=== PATIENT | female | born 1935 | race Caucasian/White ===

== ENCOUNTER 2016-09-17 17:40 | Inpatient (IN) | payer MEDICARE, OTHER ==
[~2016-09-17] VITALS: Ht 152.4 cm; Wt 57.0 kg
[2016-09-17] VITALS (21 sets, daily range): BP systolic 82–110; BP diastolic 28–56; PULSE 70–90; RESP 15–35
[2016-09-17] MEDS ORDERED: DOPamine-D5W 1.6 MG/ML 250 ML IV SCH (21:00)
[2016-09-17] MEDS ORDERED: LEVOFLOXACIN 500MG/D5W (PMX) 100 ML IVPB ONE (21:00)
[2016-09-17 21:32] LABS: AADO2 Arterial 252.6 mmHg (7.0-24.0); Allen Test ACCEPTAB; Arterial Base Excess -0.6 mmol/L (-3.0-3); Arterial COHb 0.3 % (0.0-3.0); Arterial Fraction of Oxyhgb 80.3 % (93.0-99.0); Arterial HCO3 25.5 mmol/L (22.0-26.0); Arterial MetHb 0.5 % (0.0-1.5); Arterial Total Hemglobin 9.2 g/dl (12.0-18.0); MODE VENT - AC
[2016-09-17] MEDS: DEXTROSE 5%-0.9% NACL 1,000 ML IV SCH (22:00)
[2016-09-17] MEDS ORDERED: NORepinephrine 8MG/250 ML (PMX 250 ML ONE (22:44)
[2016-09-17] MEDS ORDERED: NORepinephrine 8MG/250 ML (PMX 250 ML IV SCH (23:00)
[2016-09-17] MEDS: BUDESONIDE (NEB) 0.5MG/2ML AMP HHN SCH (23:49)
[2016-09-17] MEDS: COLISTIMETHATE (25 MG/ML INHAL SYG) NEB SCH (23:50)
[2016-09-18] VITALS (103 sets, daily range): BP systolic 78–131; BP diastolic 31–90; PULSE 61–103; RESP 13–27
[2016-09-18] MEDS ORDERED: IPRATROPIUM (NEB) 0.5 MG/2.5 ML AMP HHN SCH (01:00)
[2016-09-18] MEDS ORDERED: LEVALBUTEROL (NEB) 0.63 MG/3 ML AMP HHN SCH ×2 (01:00→08:00)
[2016-09-18 01:18] LABS: AADO2 Arterial 457.6 mmHg (7.0-24.0); Allen Test ACCEPTAB; Arterial Base Excess 1.5 mmol/L (-3.0-3); Arterial COHb 0.3 % (0.0-3.0); Arterial Fraction of Oxyhgb 98.4 % (93.0-99.0); Arterial MetHb 0.5 % (0.0-1.5); Arterial Total Hemglobin 8.7 g/dl (12.0-18.0); MODE VENT - AC
[2016-09-18] MEDS: HEPARIN 5,000 UNIT/0.5 ML SYG SC SCH ×3 (01:20→20:43)
[2016-09-18] MEDS: IPRATROPIUM (HFA) 12.9 GM INHALER INH SCH ×6 (02:28→20:29)
[2016-09-18] MEDS: LEVALBUTEROL (HFA) 15 GM INHALER INH SCH ×6 (02:29→20:29)
[2016-09-18 05:57] LABS: BASOPHILS % 0.1 % (0.0-2.0); HEMATOCRIT 24.9 % (37.0-47.0); HEMOGLOBIN 8.3 g/dl (12.0-16.0); LYMPHOCYTES # 1.1 10^3/ul (0.8-2.9); LYMPHOCYTES % 5.7 % (15.0-51.0); MEAN CORPUSCULAR HGB CONC 33.2 g/dl (32.0-37.0); MEAN CORPUSCULAR VOLUME 96.6 fl (82.0-101.0); MEAN PLATELET VOLUME 8.1 fl (7.4-10.4); MONOCYTE # 1.2 10^3/ul (0.3-0.9); MONOCYTES % 6.2 % (0.0-11.0); NEUTROPHIL # 17.2 10^3/ul (1.6-7.5); PLATELET COUNT 274 10^3/UL (140-440); RED BLOOD COUNT 2.58 10^6/ul (4.20-5.40); RED CELL DISTRIBUTION WIDTH 17.6 % (11.5-14.5); UNCORRECTED WBC 19.5 10^3/ul (4.8-10.8); WHITE BLOOD COUNT 19.5 10^3/ul (4.8-10.8)
[2016-09-18 06:10] LABS: POTASSIUM 4.1 mmol/L (3.5-5.1)
[2016-09-18 06:13] LABS: CREATININE 2.96 mg/dl (0.44-1.00)
[2016-09-18 06:14] LABS: CALCIUM 9.8 mg/dl (8.4-10.2)
[2016-09-18 06:17] LABS: CONDITION 1; LH ANALYZER COMMENTS 1
[2016-09-18 07:45] LABS: AADO2 Arterial 321.5 mmHg (7.0-24.0); Allen Test ACCEPTAB; Arterial Base Excess -0.5 mmol/L (-3.0-3); Arterial COHb 0.3 % (0.0-3.0); Arterial Fraction of Oxyhgb 97.9 % (93.0-99.0); Arterial HCO3 24.9 mmol/L (22.0-26.0); Arterial MetHb 0.6 % (0.0-1.5); Arterial Total Hemglobin 10.2 g/dl (12.0-18.0); MODE VENT - AC
[2016-09-18] MEDS ORDERED: BISACODYL 10 MG SUPP PR PRN (08:00)
[2016-09-18] MEDS ORDERED: IPRATROPIUM (HFA) 12.9 GM INHALER INH SCH (08:00)
[2016-09-18] MEDS ORDERED: LIDOCAINE 1% (MDV) 20 ML INJ SC ONE (08:00)
[2016-09-18] MEDS ORDERED: ONDANSETRON 4 MG INJ IV PRN (08:00)
[2016-09-18] MEDS: COLISTIMETHATE (25 MG/ML INHAL SYG) NEB SCH (08:06)
[2016-09-18] MEDS: BUDESONIDE (NEB) 0.5MG/2ML AMP HHN SCH ×2 (08:08→20:28)
[2016-09-18] MEDS: INSULIN ASPART [NOVOLOG] 3 ML PEN SC SCH ×4 (09:00→20:45)
--- NOTE | 2016-09-18 09:13 | RADRPT ---
PROCEDURE: Chest 1 views. CLINICAL INDICATION: Shortness of breath, follow up TECHNIQUE: AP views of the chest were obtained. COMPARISON: September 17, 2016 FINDINGS: The heart is large. Calcified atherosclerosis is noted in the aorta. Tracheostomy tube is stable. Nasogastric tube has its proximal side hole at the level of the gastroesophageal junction and its ti p in the expected location of the proximal stomach. Right-sided dialysis catheter is stable. Retro cardiac opacity is unchanged. Patchy right lower lung infiltrates combined small pleural effusion a re stable. Central pulmonary vascular congestion and interstitial prominence in both lungs is stabl e. Osseous structures are intact. IMPRESSION: Cardiomegaly with calcified atherosclerosis in the aorta. Nasogastric tube with its proximal side hole at the level of the gastroesophageal junction. Advance ment by approximately 10 cm is advised. Stable central pulmonary vascular congestion and mild interstitial prominence in both lungs. Stable retrocardiac opacity that may reflect left lower lobe atelectasis or infiltrate combined with [id number] pleural effusion. Stable right lower lung infiltrates combined small pleural effusion. RPTAT: AA .Andrew Briceño MD, Date Time Electronically viewed and signed by .Andrew Briceño MD, on 09/18/2016 09:13 .P/
[2016-09-18 09:53] LABS: ALBUMIN 3.4 g/dl (3.3-4.9)
[2016-09-18 09:56] LABS: BILIRUBIN,INDIRECT 0.1 mg/dl (0-1.1); BILIRUBIN,TOTAL 0.1 mg/dl (0.2-1.3); TOTAL PROTEIN 7.2 g/dl (6.1-8.1)
[2016-09-18] MEDS: COLLAGENASE 30 GM TUBE TOP SCH (10:20)
[2016-09-18] MEDS: PANTOPRAZOLE 40 MG INJ IV SCH (10:20)
[2016-09-18] MEDS: MUPIROCIN 2% 22 GM OINT TOP SCH ×2 (10:20→20:39)
--- NOTE | 2016-09-18 10:46 | HP ---
DATE OF ADMISSION: 09/17/2016 CHIEF COMPLAINT: Septic shock. HISTORY OF PRESENT ILLNESS: This is an 81-year-old female with a past medical history of chronic re spiratory status post tracheostomy, history of COPD, CHF, pulmonary hypertension who initially prese nted to an outside hospital at [place] for septic shock. The patient prior to admission to an [facility] [place] was residing in a subacute facility at [place] where she was found to be unrespo nsive. As a result she was transferred to the emergency room. At that time, the patient was found to be hypercapnic respiratory failure, hypotensive and septic shock secondary to urinary tract infec tion and pneumonia. The patient was transferred to intensive care unit where her course was complic ated with acute kidney injury necessitating dialysis. The patient also noted to have episodes of an emia requiring blood transfusion. The patient's infectious workup at that time included multidrug r esistant Pseudomonas in sputum cultures. The patient was treated with broad spectrum antibiotics. She was eventually stabilized, weaned off pressors and transferred to [facility] for continued care. The patient was also on sildenafil for her pulmonary hypertension. While at [place] the patient was noted to be stable; however, patient yesterday after following a thoracentesis ronn me hypotensive, unresponsive to fluid and as a result was transferred from [facility] to [facility] intensive care unit. While at the intensive care unit of [facility] the patient has been critical on pressor sup port. There have been no reports of hemoptysis, hematemesis, hematochezia. No chest pain noted. T he patient had no other acute events noted. PAST MEDICAL HISTORY: As stated above, history of chronic respiratory failure, history of COPD, his tory of atrial fibrillation, hypertension, GERD, history of CVA, history of encephalopathy. PAST SURGICAL HISTORY: Status post trach, status Perm-A-Cath placement. SOCIAL HISTORY: Does not drink, smoke or do drugs. FAMILY HISTORY: Noncontributory. ALLERGIES: 1. PATIENT IS ALLERGIC TO ASPIRIN. 2. PENICILLIN. 3. SULFA. MEDICATIONS: Patient's medications have been reviewed and reconciled. REVIEW OF SYSTEMS: A 14-point review of systems was conducted. Pertinent positives in HPI, otherwi se negative. PHYSICAL EXAMINATION: VITAL SIGNS: Blood pressure is currently 107/39, respirations 23, pulse 78, temperature 98.7. I'S AND O'S: The patient had 700 in, no urinary output. HEENT: Head is normocephalic. NECK: Shows trach. HEART: Irregularly irregular. LUNGS: Show diminished breath sounds at the base. Positive rhonchi. ABDOMEN: Distended, soft, nontender to palpation. EXTREMITIES: Negative for clubbing, cyanosis or edema. DERMATOLOGIC: No rashes. MUSCULOSKELETAL: No joint effusions. NEUROLOGIC: Limited exam due to lack of patient cooperation. IMAGING STUDIES: Showed a CT scan of abdomen and pelvis on 09/14/2016 showed atelectasis, large rig ht pleural effusion, cardiomegaly, compression fractures, degenerative joint disease, dilated inferi or vena cava, moderate ascites. Chest x-ray on 09/17/2016 shows no pneumonia, large left pleural ef fusion, cardiomegaly. LABORATORY DATA: Shows sodium 139, potassium 4.0, chloride 97, BUN 98, creatinine 2.96. White coun t 19.5, hemoglobin 8.3, hematocrit 34.9, platelet count 274. ABG shows pH 7.524, pCO2 of 29. ASSESSMENT AND PLAN: This is an 81-year-old female who presents with: 1. Septic shock, underlying source unclear, possibly multifactorial secondary to pneumonic, possibl e decubitus wound, questionable urinary. The patient is currently on pressor support, on IV fluids and broad spectrum antibiotics. Plan at this point is to follow up blood cultures. Plan at this po int is to check blood cultures. We will check sputum culture. We will also draw blood culture from dialysis catheter. We will continue the patient on broad spectrum antibiotics, continue pressor [place] pport. Continue IV hydration at this time. We will follow up with Infectious Disease for further r ecommendations. 2. Ventilator dependent respiratory failure. Vent settings have been reviewed. ABG has been revie wed. Continue current vent settings. Pulmonary consult was placed with Dr. Harrison. 3. End-stage renal disease. The patient's last hemodialysis was on 09/15/2016. We will attempt di alysis today for solute clearance if the patient is hemodynamically stable, will minimize ultrafiltr ation as the patient is in shock. 4. Severe pulmonary hypertension. Patient is on sildenafil will continue. We will follow up with p ulmonologist for further recommendations. 5. Anemia. We will continue to monitor H and H levels. We will give Epogen as needed. 6. Atrial fibrillation. The patient's rate is currently controlled. We will continue to monitor. We will hold AV danny blockade at this time as the patient is in shock. 7. Seizure disorder. Continue Keppra. 8. Acute decompensated heart failure/right-sided heart failure. Continue medical management. Cont inue ultrafiltration dialysis if the patient is hemodynamically stable. 9. Stage IV decubitus wound. Continue wound care, low air loss mattress. Continue offloading octaviano ent. 10. Diabetes. Continue Accu-Cheks and sliding scale. 11. Mineral bone disorder. Monitor calcium and phosphorus levels. We will continue phosphate bind ers. 12. Dysphagia status post nasogastric tube. We will continue tube feedings. 13. Chronic encephalopathy, etiology toxic metabolic. Continue to monitor. 14. History of cerebrovascular accident. Continue medical management. 15. Abdominal distention and abdominal ascites. Etiology is possibly cardiac due to right-sided he art failure. We will continue to monitor. We will get abdominal ultrasound for evaluation, conside r paracentesis. 16. GI and deep venous thrombosis prophylaxis. Continue proton pump inhibitor and heparin. 17. History of coronary artery disease. Continue medical management. 18. Respiratory alkalosis. We will continue to monitor. Please note I spent over 30 minutes of time discussing code status, advance directives with the octaviano ent's at bedside. Dictated By: RUDDY BUSTILLOS/ARNOLDO Conf#: [id number] DID#: [id number]
--- NOTE | 2016-09-18 11:24 | CONS ---
DATE OF ADMISSION: 09/17/2016 DATE OF CONSULTATION: 09/18/2016 TYPE OF CONSULTATION: Pulmonary. REASON FOR CONSULT: Ventilator management, septic shock. Thank you, Dr. Reddy, for this consultation. HISTORY OF PRESENT ILLNESS: This is an unfortunate 81-year-old lady with multiple medical problems including vent-dependent respiratory failure since 10/2015, COPD, septic shock, pulmonary hypertensi on, transferred from [facility] for hypercapnic respiratory failure, here found to have si gnificant large pleural effusion requiring transfer to [facility] intensive care u nit from [place] respiratory unit for thoracentesis. The patient also remains on vasopressors this m orning. Opens eyes, not following commands. She also has a history of leaking G-tube which has bee n removed and subsequently has a nasogastric tube in place. PAST MEDICAL HISTORY: COPD, vent-dependent respiratory failure, atrial fibrillation, hypertension, hyperlipidemia, history of CVA. SURGICAL HISTORY: Includes Perm-A-Cath placement, tracheostomy, and prior PEG tube. MEDICATIONS: Per chart. ALLERGIES: 1. PENICILLIN. 2. ASPIRIN. 3. SULFA. SOCIAL HISTORY: Nonsmoker, no alcohol, no history of drug use. FAMILY HISTORY: Noncontributory. SYSTEMS REVIEW: A 12-point review of systems was negative other than that mentioned above. PHYSICAL EXAMINATION: GENERAL: Chronically ill appearing lady, opens eyes, not following commands. VITAL SIGNS: Currently afebrile, pulse is 80, blood pressure 107/39, O2 saturation 96%, FIO2 of 70% . NECK: Supple. Trach site clean and intact. CARDIAC: S1, S2, no added sounds or murmurs. CHEST: Diminished air entry bilaterally. ABDOMEN: Soft, nontender. No guarding or rebound. EXTREMITIES: No cyanosis, clubbing, edema +2. NEUROLOGIC: Generalized weakness. LABORATORIES: White count 19.5, hemoglobin 8.3, platelets of 274. BUN 28, creatinine 2.96. ABG: pH 7.37, pCO2 43, PaO2 of 166. DIAGNOSTIC DATA: Chest x-ray shows massive cardiomegaly and possible left pleural effusion. IMPRESSION AND PLAN: 1. Vent dependent respiratory failure. 2. Right pleural effusion, possibly underlying healthcare-associated pneumonia. 3. Significant cardiomyopathy, possible underlying pulmonary hypertension. 4. History of cerebrovascular accident. 5. Encephalopathy. 6. Dysfunctional G-tube with NG tube in place. 7. Septic shock is noted, likely polymicrobial. The patient will require: 1. Continued broad-spectrum antibiotic coverage. 2. Vent support. 3. A nasogastric tube feeding. 4. DVT and GI prophylaxis. Overall prognosis is guarded. Goals of care should be established. Code status should be addressed . Dictated By: JULIA SNYDER/ARNOLDO Conf#: [id number] DID#: [id number]
[2016-09-18] MEDS: LEVETIRACETAM IV 500 MG in DEXTROSE 5% 100 ML IVPB SCH ×2 (12:07→20:45)
[2016-09-18] MEDS: DEXTROSE 5%-0.9% NACL 1,000 ML IV SCH ×2 (12:08→23:40)
[2016-09-18] MEDS ORDERED: SOD CHLORIDE 0.9% 100 ML ONE (12:42)
--- NOTE | 2016-09-18 12:47 | RADRPT ---
PROCEDURE: Ultrasound proximal left upper extremity for PICC placement CLINICAL INDICATION: PICC placement TECHNIQUE: Sonographic evaluation of the proximal left upper extremity vessels was performed utili zing a high-frequency linear transducer. COMPARISON: None available FINDINGS: Limited evaluation of the proximal left upper extremity for vascular access for PICC placement. Emre ssly, no abnormality is seen. IMPRESSION: Unremarkable limited proximal left upper extremity ultrasound for PICC placement. RPTAT: JJ .Ranjith Wray MD, MD Date Time Electronically viewed and signed by .Ranjith Wray MD, MD on 09/18/2016 12:46 .A/
--- NOTE | 2016-09-18 12:49 | RADRPT ---
PROCEDURE: XR Chest. CLINICAL INDICATION: PICC line placement TECHNIQUE: Chest AP portable. COMPARISON: 09/18/2016 at 0648 hours FINDINGS: Tracheostomy tube. Right internal jugular is tunneled dialysis catheter. Nasogastric tube in the s tomach. New left arm PICC line with tip in superior vena cava. The mediastinal structures are unremarkable. There is calcification of the thoracic aorta (consiste nt with atherosclerosis). There is moderate cardiac enlargement. There is no change in the congest adryan heart failure. There is no change in the RLL and LLL consolidations. There is no change in the small to moderate-sized bilateral pleural effusions. There are senescent changes of the axial skel eton. IMPRESSION: Moderate cardiac enlargement. No change in congestive heart failure. No change in RLL and LLL consolidations (edema/pneumonia). No change in small to moderate-sized bilateral pleural effusions. RPTAT: HGDB .Isaak Loera MD, MD Date Time Electronically viewed and signed by .Isaak Loera MD, on 09/18/2016 12:48 .B/
[2016-09-18] MEDS ORDERED: VANCOMYCIN IV PER PHARMACY XX SCH (13:00)
[2016-09-18] MEDS ORDERED: AMIKACIN IV PER PHARMACY XX SCH (13:00)
[2016-09-18] MEDS ORDERED: VANCOMYCIN 1 GM in NS 250 ML IVPB SCH (14:30)
[2016-09-18] MEDS ORDERED: AMIKACIN 350 MG in SOD CHLORIDE 0.9% 100 ML IVPB SCH (15:00)
--- NOTE | 2016-09-18 15:14 | CONS ---
DATE OF ADMISSION: 09/17/2016 DATE OF CONSULTATION: 09/18/2016 TYPE OF REPORT: Infectious disease consultation. REASON FOR CONSULTATION: Antibiotic management. HISTORY OF PRESENT ILLNESS: Ruby Gomez is an 81-year-old female who comes in with septic shock. Her past problems include: 1. Chronic respiratory failure, status post tracheostomy. 2. Chronic obstructive pulmonary disease. 3. Congestive failure. 4. Pulmonary hypertension. HISTORY OF THE PRESENT ILLNESS: She initially presented to an outside hospital at [place] for s eptic shock. She has been residing in a subacute facility. She was found to be in respiratory fail ure, hypotensive and in septic shock secondary to urinary tract infection and pneumonia. The patien t was transferred to intensive care unit where her course was complicated with acute kidney injury, necessitating dialysis. She was noted to have episodes of anemia requiring blood transfusion. She had multidrug resistant Pseudomonas in her sputum and was treated with broad spectrum antibiotics. She was stabilized, weaned off pressors, transferred to [facility] for continued care . While at [facility], she was stable, but yesterday following the thoracentesis, she which became hype rtensive, unresponsive and as a result was transferred to the intensive care unit of [facility]. She has a Perm-A-Cath and tracheostomy. ALLERGIES: 1. ASPIRIN. 2. PENICILLIN. 3. SULFA. PAST SURGICAL HISTORY: As noted. FAMILY HISTORY: Noncontributory. SOCIAL HISTORY: She does not smoke, drink or abuse drugs. MEDICATIONS: Per chart. REVIEW OF SYSTEMS: Noncontributory. PHYSICAL EXAMINATION: GENERAL: The patient is an elderly appearing female who is obtunded on a respirator. VITAL SIGNS: Stable. She is afebrile. SKIN: Without generalized rash. HEENT: Within normal limits. NECK: Supple. LYMPH NODES: None palpable. CHEST: Decreased breath sounds at the bases. HEART: Irregularly irregular rhythm. ABDOMEN: Soft, nontender, distended without organosplenomegaly or masses. EXTREMITIES: Without cyanosis, clubbing, or edema. RECTAL AND GENITAL: Deferred. NEUROLOGIC: Limited exam due to lack of patient cooperation. She seems to move all extremities. HOSPITAL COURSE: CT scan of the abdomen and pelvis on 09/14/2016 showed atelectasis, large right pl eural effusion, cardiomegaly, compression fractures, DJD, dilated inferior vena cava, moderate ascit es. On the she had no evidence of pneumonia. White count on admission was 19.5, H and H of 8.3 and 34.9, platelet count of 274,000. The patient was noted to be in septic shock. She was seen al so by Dr. Harrison for management of her ventilator dependence. She has a stage IV decubitus ulcer. Currently, her white count is 19.5 today, H and H 8.3 and 24.9, platelet count 274,000. She is cur rently on amikacin. She received some Levaquin and also on vancomycin and ceftazidime. She is also on caspofungin. She is covered for gram positives, gram negatives and fungi. She is also on pres sors. We will continue her on this regimen. I will check to make sure she had blood cultures done. I will dictate my findings to Dr. Reddy and to Dr. Harrison. Dictated By: TUAN NELSON MD, JD/ARNOLDO Conf#: [id number] DID#: [id number]
[2016-09-18] MEDS: CASPOFUNGIN 35 MG in SOD CHLORIDE 0.9% 250 ML IV SCH (16:27)
[2016-09-18] MEDS: CEFTAZIDIME 1GM/50 ML (PMX) 50 ML IVPB SCH (16:28)
[2016-09-18] MEDS: MIRTAZAPINE 15 MG TAB GTB SCH (20:38)
--- NOTE | 2016-09-18 20:40 | CONS ---
DATE OF ADMISSION: 09/17/2016 DATE OF CONSULTATION: 09/18/2016 REFERRING PHYSICIAN: Dr. Reddy REASON FOR CONSULTATION: Shock, hypotension. CHIEF COMPLAINT: Shock, hypotension. HISTORY OF PRESENT ILLNESS: Thank you for this referral. History was obtained from extensive revie w of the chart, review of the old chart, discussion with physician and staff. This is an unfortunat e 81-year-old female with a complicated medical history who has been in [place] for respiratory care. The patient had been transferred to ICU because of hypotension. The patient had thoracentesis don e, and postop she became more hypotensive, transferred to ICU, currently on Levophed drip. She has had dialysis done and was able to successfully take fluid off. The patient denies any chest pain or pressure to me, does complain of what appeared to be abdominal discomfort though. Rhythm strip was reviewed ____ the patient has been in atrial fibrillation and junctional rhythm. Heart rate on the fast side but is stable overall. The patient's chest x-ray also has shown pleural effusion and flu id overload, congestive heart failure. For the above, I was kindly asked to evaluate and assist in management. PAST MEDICAL HISTORY: History of respiratory failure, COPD, atrial fibrillation, hypertension, pedro roesophageal reflux disease, history of CVA, history of encephalopathy, history of anemia. Based on the previous echocardiogram that was just recently done, personally reviewed, the patient also most likely has an ASD or PFO and pulmonary hypertension as well. SURGICAL HISTORY: Status post tracheostomy, status post Perm-A-Cath placement. SOCIAL HISTORY: The patient does not smoke or drink. FAMILY HISTORY: No reported early coronary artery disease. ALLERGIES: REPORTEDLY TO: 1. ASPIRIN. 2. PENICILLIN. 3. SULFA. Details are not clear. MEDICATIONS: As per medication reconciliation, was personally extensively reviewed. REVIEW OF SYSTEMS: All are negative except for above mentioned as best we could obtain. The patien t also had dysphagia, status post NG tube in place. PHYSICAL EXAMINATION: VITAL SIGNS: Temperature 97.3, heart rate of 101, blood pressure 113/40 on Levophed, respiratory ra te of 24, saturating 99%. HEAD: Normocephalic, atraumatic. EYES: Pupils are equal. NOSE: Status post NG tube in place. NECK: Status post tracheostomy, on the vent. CARDIOVASCULAR: Tachycardic. PULMONARY: Mild rhonchi, diffuse. GASTROINTESTINAL: Distended but no rebound or guarding but positive tenderness to palpation. EXTREMITIES: Trivial lower extremity edema. DERMATOLOGIC: Positive decubitus ulcers, stage IV, apparently sacral area. NEUROLOGIC: Awake, responds appropriately. PSYCHIATRIC: Appeared to be anxious. LABORATORY: Sodium 139, potassium 4.1, BUN of 98, creatinine 2.96, glucose of 109. Albumin is 3.4. WBC of 19.5, hemoglobin 8.3, platelets of 274. Abdominal and pelvic CT done on the shows NG tube in the stomach, large right pleural effusion, dilated inferior vena cava, old compression fractures. Echocardiogram done on 09/16 was also personally reviewed which showed normal LV size and ejection f raction of probably about 55%. Right and left atrium are severely dilated. There is moderate karly l insufficiency noted with mild aortic insufficiency. PA pressure is elevated at 72 mmHg with sever e tricuspid insufficiency. There is byap-kk-[id number] shunt consistent with PFO or ASD noted. EKG was personally reviewed, done on the , showed atrial fibrillation. There is right bundle bra nch block. Lateral infarct, age undetermined. ASSESSMENT AND PLAN: 1. Shock, most likely septic. 2. Atrial fibrillation. 3. Renal failure on dialysis. 4. Pneumonia. 5. Fluid overload/congestive heart failure. 6. Pulmonary hypertension at least partially related to probably atrial septal defect. 7. Diabetes. 8. Dysphagia, status post nasogastric tube feeding. 9. Encephalopathy, history of cerebrovascular accident with ASPIRIN ALLERGY. 10. Abdominal distention and ascites. 11. Abnormal electrocardiogram. 12. Respiratory alkalosis. RECOMMENDATIONS: Antibiotic will be continued and managed as per ID's recommendation. I have order ed OB stool guaiac to see if the patient is a candidate to tolerate anticoagulation and make sure th ere are no signs of bleeding. Nutritional support to be continued. Respiratory care and trach care will be continued as well. Will continue to monitor her closely in the ICU. ____ the Levophed shana l be continued and adjusted as needed. Will continue to follow along with you. Dictated By: AMANDA PINTO MD AV/ARNOLDO Conf#: [id number] DID#: [id number] CC: RUDDY REDDY DO;*EndCC*
[2016-09-18] MEDS: morphine 2 MG INJ IV PRN (22:23)
[2016-09-19] VITALS (41 sets, daily range): BP systolic 90–110; BP diastolic 31–50; PULSE 71–109; RESP 15–35
[2016-09-19] MEDS: DEXTROSE 5%-0.9% NACL 1,000 ML IV SCH (00:40)
[2016-09-19] MEDS: INSULIN ASPART [NOVOLOG] 3 ML PEN SC SCH ×6 (01:24→21:00)
[2016-09-19] MEDS: IPRATROPIUM (HFA) 12.9 GM INHALER INH SCH ×6 (01:46→21:41)
[2016-09-19] MEDS: LEVALBUTEROL (HFA) 15 GM INHALER INH SCH ×6 (01:46→21:40)
[2016-09-19 05:30] LABS: BASOPHILS % 0.2 % (0.0-2.0); HEMATOCRIT 23.3 % (37.0-47.0); HEMOGLOBIN 7.5 g/dl (12.0-16.0); LYMPHOCYTES # 0.8 10^3/ul (0.8-2.9); LYMPHOCYTES % 5.4 % (15.0-51.0); MEAN CORPUSCULAR HEMOGLOBIN 31.4 pg (29.0-33.0); MEAN CORPUSCULAR HGB CONC 32.1 g/dl (32.0-37.0); MEAN CORPUSCULAR VOLUME 97.9 fl (82.0-101.0); MEAN PLATELET VOLUME 7.9 fl (7.4-10.4); MONOCYTE # 1.2 10^3/ul (0.3-0.9); MONOCYTES % 8.1 % (0.0-11.0); NEUTROPHIL # 12.9 10^3/ul (1.6-7.5); NEUTROPHILS % 86.3 % (39.0-77.0); PLATELET COUNT 229 10^3/UL (140-440); RED BLOOD COUNT 2.38 10^6/ul (4.20-5.40); RED CELL DISTRIBUTION WIDTH 17.9 % (11.5-14.5); UNCORRECTED WBC 14.9 10^3/ul (4.8-10.8); WHITE BLOOD COUNT 14.9 10^3/ul (4.8-10.8)
[2016-09-19 05:36] LABS: POTASSIUM 3.2 mmol/L (3.5-5.1)
[2016-09-19 05:38] LABS: CREATININE 1.87 mg/dl (0.44-1.00)
[2016-09-19 05:39] LABS: CALCIUM 8.9 mg/dl (8.4-10.2); PHOSPHORUS 1.7 mg/dl (2.5-4.9)
[2016-09-19 05:40] LABS: MAGNESIUM 2.3 mg/dl (1.7-2.5)
[2016-09-19 06:21] LABS: CONDITION 1; LH ANALYZER COMMENTS 1
[2016-09-19] MEDS: PANTOPRAZOLE 40 MG INJ IV SCH (06:28)
[2016-09-19] MEDS ORDERED: VANCOMYCIN 1 GM in NS 250 ML IVPB ONE (06:45)
[2016-09-19] MEDS ORDERED: POTASSIUM CHLORIDE (SR) 20 MEQ TAB PO STA (07:51)
[2016-09-19 07:54] LABS: Allen Test ACCEPTAB; Arterial Base Excess 1.8 mmol/L (-3.0-3); Arterial COHb 0.2 % (0.0-3.0); Arterial Fraction of Oxyhgb 96.1 % (93.0-99.0); Arterial MetHb 0.8 % (0.0-1.5); Arterial Total Hemglobin 7.8 g/dl (12.0-18.0); MODE VENT - AC
--- NOTE | 2016-09-19 07:56 | RADRPT ---
PROCEDURE: XR Chest. CLINICAL INDICATION: Shortness of breath. TECHNIQUE: Single frontal view. COMPARISON: 09/18/2016. FINDINGS: The tracheostomy tube, nasogastric tube, left arm PICC line, and tunneled right internal jugular vei n dialysis catheter remain in satisfactory position. Pulmonary edema and bibasilar atelectasis is u nchanged. The heart is markedly enlarged. There are small bilateral pleural effusions. There is no pneumothorax. IMPRESSION: 1. No change from 09/18/2016. RPTAT: QQ .Joshua Cantu MD, MD Date Time Electronically viewed and signed by .Joshua Cantu MD, MD on 09/19/2016 07:56 .R/
[2016-09-19] MEDS ORDERED: EPOETIN 10000 UNITS/1 ML INJ (ESRD) SC SCH (08:00)
[2016-09-19] MEDS: BUDESONIDE (NEB) 0.5MG/2ML AMP HHN SCH ×2 (08:01→21:38)
[2016-09-19] MEDS ORDERED: POTASSIUM CHLORIDE 20 MEQ POWDER FOR ORAL SOLN GTB ONE (08:15)
[2016-09-19] MEDS ORDERED: SODIUM PHOSPHATE 15 MMOL in SOD CHLORIDE 0.9% 250 ML IVPB ONE (09:00)
[2016-09-19] MEDS ORDERED: EPOETIN 4000 UNITS/1 ML INJ (ESRD) SC ONE (09:00)
[2016-09-19] MEDS: SILDENAFIL 20 MG TAB PO SCH ×3 (09:00→21:00)
--- NOTE | 2016-09-19 09:31 | CONS ---
Date/Time of Note Date/Time of Note DATE: 09/19/16 TIME: 09:28 Assessment/Plan Assessment/Plan Chief Complaint/Hosp Course ID PROGRESS NOTE ABX => Vanco IV + Amikacin + Cancidas s/p Levaquin 24H INTERVAL SUMMARY * Weaning pressors -- septic shock / Vented * IMAGING: Chest x-ray shows pulmonary vascular congestion, retrocardiac opacity, right lower lung infiltrate. Marcus: 09/17/16-2199 Rcvd: 09/18/16-56 Source: [facility] A Sp Descrip: Microbiology RESPIRATORY CULTURE Preliminary Organism 1 GRAM NEGATIVE KEMI QUANTITY 2+ PHYSICAL EXAMINATION: GENERAL: VSS-> weaning pressors, NAD, noncommunicative on Vent HEENT: Unremarkable NECK: Supple, trachea midline. CHEST: Rise symmetrical,=> Vented course BS HEART: S1, S2. ABDOMEN: Soft, benign - Peg EXTREMITIES: Warm, no edema SKIN: STG IV DECUB -> See photos ID ASSESSMENT 81 yo H F w/PMHx Afib, CVA, VDRF-Trach since OCT 2015, Peg, COPD, ESRD admit with: 1. Sepsis w/shock => hypotension on pressors ->Likely GNR from GNR HCAP + DECUB + ?bladder sepsis - anuric * Leukocytosis on admit * Low grade temps on admit 99.7 * Encephalopathy 2/2 #1 2. GNR HCAP 3. Right pleural effusion, possibly underlying healthcare-associated pneumonia. 3. Acute decompensated heart failure, right-sided heart failure. Continue ultrafiltration dialysis. 4. Dysfunctional G-tube with NG tube in place. 5. ESRD-> HD w/PermCath 6. Hx of Gastritis 7. STG IV coccygeal decub present on admission 8. ?UTI -> HD dependent ( + )MRSA Nares ->Bactroban INVASIVES: PICC (09/18), Trach, Peg, NGT, PermCath ABX ALLERGY: PCN/SULFA CURRENT ABX: ABX => Vanco IV + Amikacin + Cancidas ID RECOMMENDATIONS Continue Current ABX -> Bactroban to nares Temporary FC overnight to obtain UA + C&S Wound culture --> Taper ABX per micro finding and clinical course. ->Plan of care discussed w/family member in room who expresses understanding/ gratitude . Problems: Consultation Date/Type/Reason Admit Date/Time Sep 17, 2016 at 18:49 Initial Consult Date Exam/Review of Systems Vital Signs Vitals Vital Signs Date Time Temp Pulse Resp B/P Pulse Ox O2 Delivery O2 Flow Rate FiO2 09/19/16 07:00 98.8 78 23 93/35 99 09/19/16 06:00 Mechanical Ventilator 09/19/16 05:12 55 Intake and Output 09/18/16 09/18/16 09/19/16 15:00 23:00 07:00 Intake Total 948.750 ml 2015.25 ml 1060 ml Output Total 3500 ml Balance 948.750 ml -1484.75 ml 1060 ml Results Result Diagram: 09/19/16 0435 09/19/16 0435 Results 24 hrs Laboratory Tests Test 09/18/16 10:21 09/18/16 13:48 09/18/16 16:30 09/18/16 20:36 Bedside Glucose 114 169 179 203 Test 09/19/16 01:20 09/19/16 04:34 09/19/16 04:35 09/19/16 07:00 Bedside Glucose 192 204 Anion Gap 16 Basophils # 0.0 Basophils % 0.2 Blood Morphology Comment Blood Urea Nitrogen 49 #H Calcium Level 8.9 Carbon Dioxide Level 30 Chloride Level 108 # Creatinine 1.87 #H Eosinophils # 0.0 Eosinophils % 0.0 Glucose Level 197 Hematocrit 23.3 L Hemoglobin 7.5 L Lymphocytes # 0.8 Lymphocytes % 5.4 L Magnesium Level 2.3 Mean Corpuscular Hemoglobin 31.4 Mean Corpuscular Hemoglobin Concent 32.1 Mean Corpuscular Volume 97.9 Mean Platelet Volume 7.9 Monocytes # 1.2 H Monocytes % 8.1 Neutrophils # 12.9 H Neutrophils % 86.3 H Nucleated Red Blood Cells # 0.0 Nucleated Red Blood Cells % 0.0 Phosphorus Level 1.7 #L Platelet Count 229 Potassium Level 3.2 L Random Vancomycin Level 7.6 Red Blood Count 2.38 L Red Cell Distribution Width 17.9 H Sodium Level 151 H White Blood Count 14.9 #H Arterial Blood HCO3 27.0 H Arterial Blood Base Excess 1.8 Arterial Blood Oxygen Saturation 97.1 Tacho Test ACCEPTAB Arterial Blood Gas Puncture Site Left Radial Arterial Blood Carboxyhemoglobin 0.2 Arterial Blood Date Drawn 09/19/2016 7:30:09 AM Arterial Blood Methemoglobin 0.8 Arterial Blood pCO2 (Temp correct) 45.4 H Arterial Blood pH (Temp corrected) 7.392 Arterial Blood pO2 (Temp corrected) 100.6 H Blood Gas A-a O2 Differential 241.0 H Blood Gas Actual Respiration Rate 22 Blood Gas Low PEEP Setting 5.0 Blood Gas Modality VENT - AC Blood Gas Notified Time 09/19/2016 7:53:56 AM Blood Gas Notified Whom JLD Blood Gas Respiration Rate 12.0 Blood Gas Specimen Source Blood arterial Blood Gas Temperature 37.0 Blood Gas Tidal Volume 350.0 FiO2 55.0 Oxyhemoglobin Percent 96.1 Total Hemoglobin 7.8 L Test 09/19/16 09:15 Bedside Glucose 166 Medications Medications Current Medications Heparin Sodium (Porcine) 5000 unit 5,000 unit BID SC Last administered on 09/18at 20:43; Admin Dose 5,000 UNIT; Start 09/17/16 at 21:00 Levetiracetam/ Dextrose (Keppra Iv/D5W) 105 ml @ 420 mls/hr Q12 IVPB Last administered on 09/18/16at 20:45; Admin Dose 420 MLS/HR; Start 09/18/16 at 09: 00 Pantoprazole (Protonix Iv) 40 mg DAILY@06 IV Last administered on 09/19/16at 06 :28; Admin Dose 40 MG; Start 09/18/16 at 08:00 Insulin Aspart (Novolog Insulin Pen) NOVOLOG *MILD* ALGORI... Q4 SC Last administered on 09/19/16at 04:39; Admin Dose 2 UNIT; Start 09/18/16 at 09:00 Collagenase (Santyl) 1 applic DAILY TOP Last administered on 09/18/16at 10:20; Admin Dose 1 APPLIC; Start 09/18/16 at 09:00 Acetaminophen (Tylenol Liquid) 650 mg Q4H PRN NGT PAIN AND OR ELEVATED TEMP; Start 09/18/16 at 08:00 Bisacodyl (Dulcolax Supp) 10 mg DAILY PRN [place] CONSTIPATION; Start 09/18/16 at 08:00 Mupirocin (Bactroban) BID TOP Last administered on 09/18/16at 20:39; Admin Dose 1 APPLIC; Start 09/18/16 at 09:00 Mirtazapine (Remeron) 7.5 mg HS GTB Last administered on 09/18/16at 20:38; Admin Dose 7.5 MG; Start 09/18/16 at 21:00 Ondansetron HCl (Zofran Inj) 4 mg Q4H PRN IV NAUSEA AND/OR VOMITING; Start 08/24 at 08:00 Morphine Sulfate (morphine) 2 mg Q3H PRN IV PAIN LEVEL 6-10 Last administered on 09/18/16at 22:23; Admin Dose 2 MG; Start 09/18/16 at 08:00 Lorazepam 0.5 mg 0.5 mg Q3H PRN IV ANXIETY; Start 09/18/16 at 08:00 Norepinephrine 16 mg/Dextrose 500 ml @ 1.87 mls/hr TITRATE IV ; Start at 12:00 Ceftazidime (Fortaz 1gm/50 ml (Pmx)) 50 ml @ 100 mls/hr Q24H IVPB Last administered on 09/18/16at 16:28; Admin Dose 100 MLS/HR; Start 09/18/16 at 14: 00 Amikacin Sulfate (Amikacin Iv Per Pharmacy) PER PHARMACY DOSING NOTE XX ; Start 09/18/16 at 13:00 Vancomycin HCl PER PHARMACY DOSING NOTE XX ; Start 09/18/16 at 13:00 Caspofungin/ Sodium Chloride (Cancidas/NS) 250 ml @ 250 mls/hr Q24H IV Last administered on 09/18/16at 16:27; Admin Dose 250 MLS/HR; Start 09/18/16 at 16: 00 IV Flush (NS 10 ml) 10 ml PRN PRN IV IV PROTOCOL; Start 09/18/16 at 13:00 Sildenafil Citrate 20 mg 20 mg TID PO ; Start 09/19/16 at 09:00 Potassium Phosphate/Dextrose (K Phos (Mm)/D5W) 255 ml @ 63.75 mls/ hr ONCE IV ; Start 09/19/16 at 10:00; Stop 09/19/16 at 13:59 JOEY RODRIGUEZ NP Sep 19, 2016 09:31
--- NOTE | 2016-09-19 09:32 | PN ---
DATE: 09/19/2016 SUBJECTIVE: The patient remains critically ill, but improving. The patient is being weaned off pre ssor support. The patient had hemodialysis yesterday and tolerated it well, approximately 3 liters were removed. The patient remains on full ventilatory support. No significant change. No other ac [place] events noted. No hemoptysis, hematemesis or hematochezia. OBJECTIVE: VITAL SIGNS: Blood pressure 93/35, respirations 24, pulse 71, temperature 98.8. I's AND O'S: The patient had 3.9 liters in, 500 out. HEENT: Head is normocephalic. NECK: Shows a trach. HEART: Regular rate. LUNGS: Showed diminished breath sounds at the base. ABDOMEN: Soft, nontender to palpation. Positive ascites. EXTREMITIES: Negative for clubbing or cyanosis. No edema. DERMATOLOGIC: No rashes. MUSCULOSKELETAL: Have no joint effusion. NEUROLOGIC: No change in exam. MUSCULOSKELETAL: Positive decubitus wound. LABORATORY DATA: Shows a white count of 14.9, hemoglobin 7.5, hematocrit 23.3, platelet count 229. Sodium 151. Potassium , chloride 108, BUN 49, creatinine 1.87, phosphorus 1.7. IMAGING: Chest x-ray shows pulmonary vascular congestion, retrocardiac opacity, right lower lung in filtrate. ASSESSMENT AND PLAN: 1. Septic shock. Etiology is multifactorial, likely secondary to pneumonia and possible decubitus wound. The patient is clinically improving, being weaned off pressor support. Plan at this point i s to continue broad-spectrum antimicrobial, antifungal therapy. Will follow up blood cultures, sput um cultures. Will follow up a procalcitonin level. Will follow up with infectious disease for furt her recommendations. Once the patient off pressor support, will discontinue IV fluids. 2. Ventilatory-dependent respiratory failure. Vent settings have been reviewed. ABG was reviewed. Continue the current settings and monitor. 3. End-stage renal disease. The patient had hemodialysis yesterday and tolerated it well. Anticip ate dialysis for tomorrow. Will continue to monitor. 4. Severe pulmonary hypertension. Will continue sildenafil. Will follow up with pulmonary. 5. Anemia. Etiology is likely from chronic disease. Will rule out a gastrointestinal bleed by alana cking stool for occult blood. Check an iron panel. If the patient is iron deficient, will start e patient on IV iron. Will continue Epogen. 6. Atrial fibrillation, currently rate controlled. Will continue to monitor. Continue medical man agement. 7. Seizure disorder. Continue Keppra. 8. Acute decompensated heart failure, right-sided heart failure. Continue the current medical renetta gement. Continue ultrafiltration dialysis. 9. Stage IV decubitus wound. Continue wound care, low air loss mattress. 10. Diabetes. Continue Accu-Cheks and insulin sliding scale. 11. Mineral bone disorder. The patient's phosphorus levels are low. We will replete. We will disc ontinue phos binders. 12. Hypokalemia. Replete with potassium chloride. 13. Dysphagia, status post nasogastric tube. Will start tube feedings. 14. Chronic encephalopathy, toxic metabolic. Continue to monitor. 15. History of cerebrovascular accident. Continue medical management. 16. Abdominal distention with ascites. Etiology is likely from right-sided heart failure and end-s tage renal disease. Will order a paracentesis and monitor. 17. History of coronary artery disease. Continue medical management. 18. Respiratory alkalosis. Continue to monitor. 19. Gastrointestinal and deep venous thrombosis prophylaxis. Continue PPI and heparin. Please note, I spent over 40 minutes of critical care time with this patient. Dictated By: RUDDY BUSTILLOS/ARNOLDO Conf#: [id number] DID#: [id number]
[2016-09-19] MEDS ORDERED: DEXTROSE IV SCH (10:00)
[2016-09-19] MEDS ORDERED: POTASSIUM PHOSPHATE IV SCH (10:00)
[2016-09-19 10:12] LABS: IRON 18 ug/dl (35-150)
[2016-09-19] MEDS: LEVETIRACETAM IV 500 MG in DEXTROSE 5% 100 ML IVPB SCH ×2 (10:12→21:06)
[2016-09-19] MEDS: COLLAGENASE 30 GM TUBE TOP SCH (10:13)
[2016-09-19] MEDS: MUPIROCIN 2% 22 GM OINT TOP SCH ×2 (10:13→21:38)
[2016-09-19] MEDS: HEPARIN 5,000 UNIT/0.5 ML SYG SC SCH ×2 (10:17→21:12)
[2016-09-19 10:21] LABS: TOTAL IRON BINDING CAPACITY 144 ug/dl (241-421)
[2016-09-19] MEDS ORDERED: GLUCAGON 1 MG INJ IM PRN (12:00)
[2016-09-19] MEDS ORDERED: GLUCOSE GEL 15 GRAM TUBE PO PRN ×2 (12:00)
[2016-09-19] MEDS ORDERED: GLUCOSE GEL 15 GRAM TUBE BUCCAL PRN (12:00)
[2016-09-19] MEDS ORDERED: DEXTROSE 50% 50 ML SYRINGE IV PRN ×2 (12:00)
--- NOTE | 2016-09-19 12:52 | RADRPT ---
Vent Rate: 76 bpm RR Interval: 0 msec WA Interval: 0 msec QRS Duration: 138 msec QT Interval: 372 msec QTC Interval: 418 msec P-R-T [place]: 0 - 115 - -7 degrees Atrial fibrillation Right bundle branch block Abnormal ECG Electronically Signed By: Vitor Bauman [id number]
[2016-09-19] MEDS: CEFTAZIDIME 1GM/50 ML (PMX) 50 ML IVPB SCH (13:31)
[2016-09-19 14:29] LABS: HEMATOCRIT 23.1 % (37.0-47.0); HEMOGLOBIN 7.4 g/dl (12.0-16.0)
[2016-09-19] MEDS: CASPOFUNGIN 35 MG in SOD CHLORIDE 0.9% 250 ML IV SCH (17:01)
[2016-09-19] MEDS ORDERED: LEVOFLOXACIN 250MG/D5W (PMX) 50 ML IVPB SCH (21:00)
[2016-09-19] MEDS: MIRTAZAPINE 15 MG TAB GTB SCH (21:10)
[2016-09-20] VITALS (54 sets, daily range): BP systolic 88–134; BP diastolic 40–61; PULSE 71–107; RESP 12–38
[2016-09-20] MEDS: INSULIN ASPART [NOVOLOG] 3 ML PEN SC SCH ×6 (01:00→21:00)
[2016-09-20] MEDS: IPRATROPIUM (HFA) 12.9 GM INHALER INH SCH ×6 (01:23→19:59)
[2016-09-20] MEDS: LEVALBUTEROL (HFA) 15 GM INHALER INH SCH ×6 (01:23→19:59)
[2016-09-20 06:23] LABS: POTASSIUM 4.7 mmol/L (3.5-5.1)
[2016-09-20 06:25] LABS: CREATININE 2.52 mg/dl (0.44-1.00)
[2016-09-20 06:26] LABS: CALCIUM 9.7 mg/dl (8.4-10.2); MAGNESIUM 2.4 mg/dl (1.7-2.5); PHOSPHORUS 3.6 mg/dl (2.5-4.9)
[2016-09-20] MEDS: PANTOPRAZOLE 40 MG INJ IV SCH (06:31)
[2016-09-20 06:32] LABS: BASOPHILS % 0.4 % (0.0-2.0); EOSINOPHILS # 0.1 10^3/ul (0.0-0.5); EOSINOPHILS % 0.6 % (0.0-7.0); HEMATOCRIT 22.7 % (37.0-47.0); HEMOGLOBIN 7.3 g/dl (12.0-16.0); LYMPHOCYTES % 9.1 % (15.0-51.0); MEAN CORPUSCULAR HEMOGLOBIN 31.5 pg (29.0-33.0); MEAN CORPUSCULAR HGB CONC 32.1 g/dl (32.0-37.0); MEAN CORPUSCULAR VOLUME 98.1 fl (82.0-101.0); MONOCYTE # 1.1 10^3/ul (0.3-0.9); NEUTROPHIL # 9.1 10^3/ul (1.6-7.5); NEUTROPHILS % 79.9 % (39.0-77.0); PLATELET COUNT 224 10^3/UL (140-440); RED BLOOD COUNT 2.32 10^6/ul (4.20-5.40); UNCORRECTED WBC 11.4 10^3/ul (4.8-10.8); WHITE BLOOD COUNT 11.4 10^3/ul (4.8-10.8)
[2016-09-20 06:33] LABS: CONDITION 1; LH ANALYZER COMMENTS 1
--- NOTE | 2016-09-20 06:38 | PN ---
DATE: 09/19/2016 CARDIOLOGY FOLLOWUP SUBJECTIVE: Discussed with the patient's daughter, discussed with staff. The patient remains in at rial fibrillation. Heart rate has been controlled. Blood pressure is better controlled. Off of pr essors now. The patient remains status post trach on the vent. MEDICATIONS: Reviewed. PHYSICAL EXAMINATION: VITAL SIGNS: Temperature 98.4, heart rate of 93, blood pressure is 106/86, respiratory rate of 22, saturating 93%. HEENT: Normocephalic, atraumatic. Elderly female. NECK: Status post tracheostomy, on the vent. CARDIOVASCULAR: Irregularly irregular, systolic and diastolic murmur. PULMONARY: With mild rhonchi at the base. GASTROINTESTINAL: Soft, nontender. EXTREMITIES: With trivial edema. NEUROLOGIC: Opens her eyes and responds appropriately. LABORATORY: Chest x-ray showed no significant change. Laboratory shows WBC of 14.9, hemoglobin 7.5 , platelets of 229. Sodium 151, potassium 3.2, BUN of 49, creatinine 1.87, glucose 197. OB stool i s negative x1 so far. ASSESSMENT AND PLAN: 1. Hypoxemic respiratory failure. 2. Atrial fibrillation. 3. Renal failure on dialysis. 4. Shock, probably septic, currently improving. 5. Pneumonia. 6. Fluid overload on congestive heart failure. 7. Pulmonary hypertension, at least partially related to possibly or septal defect. 8. Diabetes. 9. Dysphagia, status post nasogastric tube in place. 10. Abdominal distention and ascites. RECOMMENDATIONS: Antibiotic is managed as per ID recommendation. Dialysis as per renal. Revatio a s tolerated will be continued because of her pulmonary hypertension. Pressors are currently off. W e will repeat OB stool. A transfusion is p.r.n. to be given. If there is no sign of bleeding, we m ay consider anticoagulation; however, hold off for now because of severe anemia. Dictated By: AMANDA LARA/ARNOLDO Conf#: [id number] DID#: [id number]
--- NOTE | 2016-09-20 08:33 | CONS ---
Date/Time of Note Date/Time of Note DATE: 09/20/16 TIME: 08:30 Consult Date/Type/Reason Admit Date/Time Sep 17, 2016 at 18:49 Initial Consult Date Type of Consultation: nephrology Subjective Pt. seen on HD in ICU, son at bedside. On vent, no distress Objective Vital Signs Date Time Temp Pulse Resp B/P Pulse Ox O2 Delivery O2 Flow Rate FiO2 09/20/16 08:00 81 28 108/44 98 09/20/16 08:00 97.6 Mechanical Ventilator 09/20/16 08:00 55 Intake and Output 09/19/16 09/19/16 09/20/16 15:00 23:00 07:00 Intake Total 600 ml 455 ml 1000 ml Balance 600 ml 455 ml 1000 ml HEENT: Head is normocephalic. NECK: Shows a trach. HEART: Regular rate. LUNGS: Showed diminished breath sounds at the base. ABDOMEN: Soft, nontender to palpation. Positive ascites. EXTREMITIES: Negative for clubbing or cyanosis. No edema. DERMATOLOGIC: No rashes. MUSCULOSKELETAL: Have no joint effusion. NEUROLOGIC: No change in exam. MUSCULOSKELETAL: Positive decubitus wound. Results/Medications Result Diagram: 09/20/16 0500 09/20/16 0500 Results 24 hrs Laboratory Tests Test 09/19/16 09:15 09/19/16 09:20 09/19/16 13:30 09/19/16 13:50 Bedside Glucose 166 174 Ferritin 1730.0 H Iron Level 18 L Percent Iron Saturation 13 L Total Iron Binding Capacity 144 L Hematocrit 23.1 L Hemoglobin 7.4 L Test 09/19/16 16:59 09/19/16 20:35 09/20/16 02:52 09/20/16 05:00 Bedside Glucose 140 112 136 Anion Gap 20 H Basophils # 0.0 Basophils % 0.4 Blood Morphology Comment Blood Urea Nitrogen 71 H Calcium Level 9.7 Carbon Dioxide Level 27 Chloride Level 106 Creatinine 2.52 H Eosinophils # 0.1 Eosinophils % 0.6 Glucose Level 129 # Hematocrit 22.7 L Hemoglobin 7.3 L Lymphocytes # 1.0 Lymphocytes % 9.1 L Magnesium Level 2.4 Mean Corpuscular Hemoglobin 31.5 Mean Corpuscular Hemoglobin Concent 32.1 Mean Corpuscular Volume 98.1 Mean Platelet Volume 8.0 Monocytes # 1.1 H Monocytes % 10.0 Neutrophils # 9.1 H Neutrophils % 79.9 H Nucleated Red Blood Cells # 0.0 Nucleated Red Blood Cells % 0.0 Phosphorus Level 3.6 Platelet Count 224 Potassium Level 4.7 Red Blood Count 2.32 L Red Cell Distribution Width 18.0 H Sodium Level 148 H White Blood Count 11.4 #H Test 09/20/16 06:24 Bedside Glucose 123 Medications Current Medications Heparin Sodium (Porcine) 5000 unit 5,000 unit BID SC Last administered on 09/19at 21:12; Admin Dose 5,000 UNIT; Start 09/17/16 at 21:00 Levetiracetam/ Dextrose (Keppra Iv/D5W) 105 ml @ 420 mls/hr Q12 IVPB Last administered on 09/19/16 21:06; Admin Dose 420 MLS/HR; Start 09/18/16 at 09: 00 Pantoprazole (Protonix Iv) 40 mg DAILY@06 IV Last administered on 09/20/16 06 :31; Admin Dose 40 MG; Start 09/18/16 at 08:00 Insulin Aspart (Novolog Insulin Pen) NOVOLOG *MILD* ALGORI... Q4 SC Last administered on 09/19/16at 13:36; Admin Dose 1 UNIT; Start 09/18/16 at 09:00 Collagenase (Santyl) 1 applic DAILY TOP Last administered on 09/19/16at 10:13; Admin Dose 1 APPLIC; Start 09/18/16 at 09:00 Acetaminophen (Tylenol Liquid) 650 mg Q4H PRN NGT PAIN AND OR ELEVATED TEMP; Start 09/18/16 at 08:00 Bisacodyl (Dulcolax Supp) 10 mg DAILY PRN [place] CONSTIPATION; Start 09/18/16 at 08:00 Mupirocin (Bactroban) Apply to bilateral nares ... BID TOP Last administered on 09/19/16at 21:38; Admin Dose 1 APPLIC; Start 09/18/16 at 09:00 Mirtazapine (Remeron) 7.5 mg HS GTB Last administered on 09/19/16at 21:10; Admin Dose 7.5 MG; Start 09/18/16 at 21:00 Ondansetron HCl (Zofran Inj) 4 mg Q4H PRN IV NAUSEA AND/OR VOMITING; Start 08/24 at 08:00 Morphine Sulfate (morphine) 2 mg Q3H PRN IV PAIN LEVEL 6-10 Last administered on 09/18/16at 22:23; Admin Dose 2 MG; Start 09/18/16 at 08:00 Lorazepam 0.5 mg 0.5 mg Q3H PRN IV ANXIETY; Start 09/18/16 at 08:00 Norepinephrine 16 mg/Dextrose 500 ml @ 1.87 mls/hr TITRATE IV ; Start at 12:00 Ceftazidime (Fortaz 1gm/50 ml (Pmx)) 50 ml @ 100 mls/hr Q24H IVPB Last administered on 09/19/16at 13:31; Admin Dose 100 MLS/HR; Start 09/18/16 at 14: 00 Amikacin Sulfate (Amikacin Iv Per Pharmacy) PER PHARMACY DOSING NOTE XX ; Start 09/18/16 at 13:00 Vancomycin HCl PER PHARMACY DOSING NOTE XX ; Start 09/18/16 at 13:00 Caspofungin/ Sodium Chloride (Cancidas/NS) 250 ml @ 250 mls/hr Q24H IV Last administered on 09/19/16at 17:01; Admin Dose 250 MLS/HR; Start 09/18/16 at 16: 00 IV Flush (NS 10 ml) 10 ml PRN PRN IV IV PROTOCOL; Start 09/18/16 at 13:00 Sildenafil Citrate (Revatio) 20 mg TID PO ; Start 09/19/16 at 09:00 Miscellaneous Information 1 ea NOTE XX ; Start 09/19/16 at 12:00 Glucose (Glutose) 15 gm Q15M PRN PO DECREASED GLUCOSE; Start 09/19/16 at 12:00 Glucose (Glutose) 22.5 gm Q15M PRN PO DECREASED GLUCOSE; Start 09/19/16 at 12: 00 Dextrose (D50w Syringe) 25 ml Q15M PRN IV DECREASED GLUCOSE; Start 09/19/16 at 12:00 Dextrose (D50w Syringe) 50 ml Q15M PRN IV DECREASED GLUCOSE; Start 09/19/16 at 12:00 Glucagon (Glucagen) 1 mg Q15M PRN IM DECREASED GLUCOSE; Start 09/19/16 at 12: 00 Glucose (Glutose) 15 gm Q15M PRN BUCCAL DECREASED GLUCOSE; Start 09/19/16 at 12:00 Assessment/Plan Chief Complaint/Hosp Course .1. Septic shock. Etiology is multifactorial, likely secondary to pneumonia and possible decubitus wound. The patient is clinically improving, being weaned off pressor support. Plan at this point is to continue broad-spectrum antimicrobial, antifungal therapy. Will follow up blood cultures, sputum cultures. Will follow up a procalcitonin level. Will follow up with infectious disease for further recommendations. Once the patient off pressor support, will discontinue IV fluids. 2. Ventilatory-dependent respiratory failure. Vent settings have been reviewed. ABG was reviewed. Continue the current settings and monitor. 3. End-stage renal disease. The patient had hemodialysis yesterday and tolerated it well. Anticipate dialysis for tomorrow. Will continue to monitor. 4. Severe pulmonary hypertension. Will continue sildenafil. Will follow up with pulmonary. 5. Anemia. Etiology is likely from chronic disease. Will rule out a gastrointestinal bleed by checking stool for occult blood. Check an iron panel. If the patient is iron deficient, will start the patient on IV iron. Will continue Epogen. 6. Atrial fibrillation, currently rate controlled. Will continue to monitor. Continue medical management. 7. Seizure disorder. Continue Keppra. 8. Acute decompensated heart failure, right-sided heart failure. Continue the current medical management. Continue ultrafiltration dialysis. 9. Stage IV decubitus wound. Continue wound care, low air loss mattress. 10. Diabetes. Continue Accu-Cheks and insulin sliding scale. 11. Mineral bone disorder. The patient's phosphorus levels are low. We will replete. We will discontinue phos binders. 12. Hypokalemia. Replete with potassium chloride. 13. Dysphagia, status post nasogastric tube. Will start tube feedings. 14. Chronic encephalopathy, toxic metabolic. Continue to monitor. 15. History of cerebrovascular accident. Continue medical management. 16. Abdominal distention with ascites. Etiology is likely from right-sided heart failure and end-stage renal disease. Will order a paracentesis and monitor. 17. History of coronary artery disease. Continue medical management. 18. Respiratory alkalosis. Continue to monitor. 19. Gastrointestinal and deep venous thrombosis prophylaxis. Continue PPI and heparin. Problems: TONI QURESHI MD Sep 20, 2016 08:32
[2016-09-20] MEDS: SILDENAFIL 20 MG TAB PO SCH ×3 (09:00→20:58)
[2016-09-20] MEDS: MUPIROCIN 2% 22 GM OINT TOP SCH ×2 (09:04→20:59)
[2016-09-20] MEDS: COLLAGENASE 30 GM TUBE TOP SCH (09:04)
[2016-09-20] MEDS: LEVETIRACETAM IV 500 MG in DEXTROSE 5% 100 ML IVPB SCH ×2 (09:05→20:57)
[2016-09-20] MEDS: HEPARIN 5,000 UNIT/0.5 ML SYG SC SCH ×2 (09:11→21:23)
[2016-09-20] MEDS: BUDESONIDE (NEB) 0.5MG/2ML AMP HHN SCH ×2 (09:17→20:04)
--- NOTE | 2016-09-20 11:47 | CONS ---
Date/Time of Note Date/Time of Note DATE: 09/20/16 TIME: 11:44 Assessment/Plan Assessment/Plan Chief Complaint/Hosp Course ID PROGRESS NOTE ABX => Vanco IV + Amikacin + Cancidas s/p Levaquin 24H INTERVAL SUMMARY * 81yo F s/p trach placement => Vented, noncommunicative * IMAGING: Chest x-ray shows pulmonary vascular congestion, retrocardiac opacity, right lower lung infiltrate. Marcus: 09/19/16-1740 Rcvd: 09/19/16 Source: DECUBITUS Sp Descrip: WOUND Microbiology WOUND CULTURE Preliminary Organism 1 STAPHYLOCOCCUS AUREUS QUANTITY 1+ Marcus: 09/17/16-2199 Rcvd: 09/18/16 Source: TRACHEAL A Sp Descrip: Microbiology RESPIRATORY CULTURE RESPIRATORY CULTURE Final Organism 1 PSEUDOMONAS AERUGINOSA QUANTITY 2+ P.AERUG M.I.C. RX --------- --- AMIKACIN 8 S AZTREONAM I CEFEPIME 32 R CEFTAZIDIME 16 I CIPROFLOXACIN >=4 R GENTAMICIN 8 I IMIPENEM >=16 R LEVOFLOXACIN >=8 R TOBRAMYCIN <=1 S PIPERACILLIN/TAZOBACTAM R PHYSICAL EXAMINATION: GENERAL: VSS-> weaning pressors, NAD, noncommunicative on Vent HEENT: Unremarkable NECK: Supple, trachea midline. CHEST: Rise symmetrical,=> Vented course BS HEART: S1, S2. ABDOMEN: Soft, benign - Peg EXTREMITIES: Warm, no edema SKIN: STG IV DECUB -> See photos ID ASSESSMENT 81 yo H F w/PMHx Afib, CVA, VDRF-Trach since OCT 2015, Peg, COPD, ESRD admit with: 1. Sepsis w/shock => hypotension on pressors ->Likely GNR from GNR HCAP + DECUB + ?bladder sepsis - anuric * Leukocytosis on admit * Low grade temps on admit 99.7 * Encephalopathy 2/2 #1 2. GNR HCAP = (+PSAR sensitive to Amikacin 3. Right pleural effusion, possibly underlying healthcare-associated pneumonia. 3. Acute decompensated heart failure, right-sided heart failure. Continue ultrafiltration dialysis. 4. Dysfunctional G-tube with NG tube in place. 5. ESRD-> HD w/PermCath 6. Hx of Gastritis 7. STG IV coccygeal decub present on admission * Wpund Cx(+)Staph aureus -> Pending 8. ?UTI -> HD dependent ( + )MRSA Nares ->Bactroban INVASIVES: PICC (09/18), Trach, Peg, NGT, PermCath ABX ALLERGY: PCN/SULFA CURRENT ABX: ABX => Vanco IV + Amikacin + Cancidas ID RECOMMENDATIONS Continue Current ABX -> Bactroban to nares Temporary FC overnight to obtain UA + C&S => Pending Wound culture => Final pending --> Taper ABX per micro finding and clinical course. -> Wound RC recommendations noted and appreciated . Problems: Consultation Date/Type/Reason Admit Date/Time Sep 17, 2016 at 18:49 Type of Consultation: ID Exam/Review of Systems Vital Signs Vitals Vital Signs Date Time Temp Pulse Resp B/P Pulse Ox O2 Delivery O2 Flow Rate FiO2 09/20/16 10:00 87 26 103/56 97 Mechanical Ventilator 09/20/16 08:00 97.6 09/20/16 08:00 55 Intake and Output 09/19/16 09/19/16 09/20/16 15:00 23:00 07:00 Intake Total 600 ml 455 ml 1000 ml Balance 600 ml 455 ml 1000 ml Results Result Diagram: 09/20/16 0500 09/20/16 0500 Results 24 hrs Laboratory Tests Test 09/19/16 13:30 09/19/16 13:50 09/19/16 16:59 09/19/16 20:35 Bedside Glucose 174 140 112 Hematocrit 23.1 L Hemoglobin 7.4 L Test 09/20/16 02:52 09/20/16 05:00 09/20/16 06:24 09/20/16 09:03 Bedside Glucose 136 123 136 Anion Gap 20 H Basophils # 0.0 Basophils % 0.4 Blood Morphology Comment Blood Urea Nitrogen 71 H Calcium Level 9.7 Carbon Dioxide Level 27 Chloride Level 106 Creatinine 2.52 H Eosinophils # 0.1 Eosinophils % 0.6 Glucose Level 129 # Hematocrit 22.7 L Hemoglobin 7.3 L Lymphocytes # 1.0 Lymphocytes % 9.1 L Magnesium Level 2.4 Mean Corpuscular Hemoglobin 31.5 Mean Corpuscular Hemoglobin Concent 32.1 Mean Corpuscular Volume 98.1 Mean Platelet Volume 8.0 Monocytes # 1.1 H Monocytes % 10.0 Neutrophils # 9.1 H Neutrophils % 79.9 H Nucleated Red Blood Cells # 0.0 Nucleated Red Blood Cells % 0.0 Phosphorus Level 3.6 Platelet Count 224 Potassium Level 4.7 Red Blood Count 2.32 L Red Cell Distribution Width 18.0 H Sodium Level 148 H White Blood Count 11.4 #H Medications Medications Current Medications Heparin Sodium (Porcine) 5000 unit 5,000 unit BID SC Last administered on 09/20at 09:11; Admin Dose 5,000 UNIT; Start 09/17/16 at 21:00 Levetiracetam/ Dextrose (Keppra Iv/D5W) 105 ml @ 420 mls/hr Q12 IVPB Last administered on 09/20/16at 09:05; Admin Dose 420 MLS/HR; Start 09/18/16 at 09: 00 Pantoprazole (Protonix Iv) 40 mg DAILY@06 IV Last administered on 09/20/16at 06 :31; Admin Dose 40 MG; Start 09/18/16 at 08:00 Insulin Aspart (Novolog Insulin Pen) NOVOLOG *MILD* ALGORI... Q4 SC Last administered on 09/19/16at 13:36; Admin Dose 1 UNIT; Start 09/18/16 at 09:00 Collagenase (Santyl) 1 applic DAILY TOP Last administered on 09/20/16at 09:04; Admin Dose 1 APPLIC; Start 09/18/16 at 09:00 Acetaminophen (Tylenol Liquid) 650 mg Q4H PRN NGT PAIN AND OR ELEVATED TEMP; Start 09/18/16 at 08:00 Bisacodyl (Dulcolax Supp) 10 mg DAILY PRN [place] CONSTIPATION; Start 09/18/16 at 08:00 Mupirocin (Bactroban) Apply to bilateral nares ... BID TOP Last administered on 09/20/16at 09:04; Admin Dose 1 APPLIC; Start 09/18/16 at 09:00 Mirtazapine (Remeron) 7.5 mg HS GTB Last administered on 09/19/16at 21:10; Admin Dose 7.5 MG; Start 09/18/16 at 21:00 Ondansetron HCl (Zofran Inj) 4 mg Q4H PRN IV NAUSEA AND/OR VOMITING; Start 08/24 at 08:00 Morphine Sulfate (morphine) 2 mg Q3H PRN IV PAIN LEVEL 6-10 Last administered on 09/18/16at 22:23; Admin Dose 2 MG; Start 09/18/16 at 08:00 Lorazepam 0.5 mg 0.5 mg Q3H PRN IV ANXIETY; Start 09/18/16 at 08:00 Norepinephrine 16 mg/Dextrose 500 ml @ 1.87 mls/hr TITRATE IV ; Start at 12:00 Ceftazidime (Fortaz 1gm/50 ml (Pmx)) 50 ml @ 100 mls/hr Q24H IVPB Last administered on 09/19/16at 13:31; Admin Dose 100 MLS/HR; Start 09/18/16 at 14: 00 Amikacin Sulfate (Amikacin Iv Per Pharmacy) PER PHARMACY DOSING NOTE XX ; Start 09/18/16 at 13:00 Vancomycin HCl PER PHARMACY DOSING NOTE XX ; Start 09/18/16 at 13:00 Caspofungin/ Sodium Chloride (Cancidas/NS) 250 ml @ 250 mls/hr Q24H IV Last administered on 09/19/16at 17:01; Admin Dose 250 MLS/HR; Start 09/18/16 at 16: 00 IV Flush (NS 10 ml) 10 ml PRN PRN IV IV PROTOCOL; Start 09/18/16 at 13:00 Sildenafil Citrate (Revatio) 20 mg TID PO ; Start 11/11/16 at 09:00 Miscellaneous Information 1 ea NOTE XX ; Start 09/19/16 at 12:00 Glucose (Glutose) 15 gm Q15M PRN PO DECREASED GLUCOSE; Start 09/19/16 at 12:00 Glucose (Glutose) 22.5 gm Q15M PRN PO DECREASED GLUCOSE; Start 09/19/16 at 12: 00 Dextrose (D50w Syringe) 25 ml Q15M PRN IV DECREASED GLUCOSE; Start 09/19/16 at 12:00 Dextrose (D50w Syringe) 50 ml Q15M PRN IV DECREASED GLUCOSE; Start 09/19/16 at 12:00 Glucagon (Glucagen) 1 mg Q15M PRN IM DECREASED GLUCOSE; Start 09/19/16 at 12: 00 Glucose (Glutose) 15 gm Q15M PRN BUCCAL DECREASED GLUCOSE; Start 09/19/16 at 12:00 JOEY RODRIGUEZ NP Sep 20, 2016 11:47
[2016-09-20] MEDS: CEFTAZIDIME 1GM/50 ML (PMX) 50 ML IVPB SCH (13:57)
--- NOTE | 2016-09-20 14:50 | CONS ---
Date/Time of Note Date/Time of Note DATE: 09/20/16 TIME: 14:46 Consult Date/Type/Reason Admit Date/Time Sep 17, 2016 at 18:49 Initial Consult Date Type of Consultation: Pulm Subjective No events on MV. Objective Vital Signs Date Time Temp Pulse Resp B/P Pulse Ox O2 Delivery O2 Flow Rate FiO2 09/20/16 13:00 82 24 101/51 97 Mechanical Ventilator 09/20/16 08:00 97.6 09/20/16 08:00 55 Intake and Output 09/19/16 09/19/16 09/20/16 15:00 23:00 07:00 Intake Total 600 ml 455 ml 1000 ml Balance 600 ml 455 ml 1000 ml CARDIAC: S1, Increased P2 and 3/6 systolic murmur CHEST: Diminished air entry bilaterally. ABDOMEN: Soft, nontender. No guarding or rebound. EXTREMITIES: No cyanosis, clubbing, edema +2. Results/Medications Result Diagram: 09/20/16 0500 09/20/16 0500 Results 24 hrs Laboratory Tests Test 09/19/16 16:59 09/19/16 20:35 09/20/16 02:52 09/20/16 05:00 Bedside Glucose 140 112 136 Anion Gap 20 H Basophils # 0.0 Basophils % 0.4 Blood Morphology Comment Blood Urea Nitrogen 71 H Calcium Level 9.7 Carbon Dioxide Level 27 Chloride Level 106 Creatinine 2.52 H Eosinophils # 0.1 Eosinophils % 0.6 Glucose Level 129 # Hematocrit 22.7 L Hemoglobin 7.3 L Lymphocytes # 1.0 Lymphocytes % 9.1 L Magnesium Level 2.4 Mean Corpuscular Hemoglobin 31.5 Mean Corpuscular Hemoglobin Concent 32.1 Mean Corpuscular Volume 98.1 Mean Platelet Volume 8.0 Monocytes # 1.1 H Monocytes % 10.0 Neutrophils # 9.1 H Neutrophils % 79.9 H Nucleated Red Blood Cells # 0.0 Nucleated Red Blood Cells % 0.0 Phosphorus Level 3.6 Platelet Count 224 Potassium Level 4.7 Red Blood Count 2.32 L Red Cell Distribution Width 18.0 H Sodium Level 148 H White Blood Count 11.4 #H Test 09/20/16 06:24 09/20/16 09:03 09/20/16 13:58 Bedside Glucose 123 136 161 Medications Current Medications Heparin Sodium (Porcine) 5000 unit 5,000 unit BID SC Last administered on 09/20at 09:11; Admin Dose 5,000 UNIT; Start 09/17/16 at 21:00 Levetiracetam/ Dextrose (Keppra Iv/D5W) 105 ml @ 420 mls/hr Q12 IVPB Last administered on 09/20/16at 09:05; Admin Dose 420 MLS/HR; Start 09/18/16 at 09: 00 Pantoprazole (Protonix Iv) 40 mg DAILY@06 IV Last administered on 09/20/16at 06 :31; Admin Dose 40 MG; Start 09/18/16 at 08:00 Insulin Aspart (Novolog Insulin Pen) NOVOLOG *MILD* ALGORI... Q4 SC Last administered on 09/20/16 14:03; Admin Dose 1 UNIT; Start 09/18/16 at 09:00 Collagenase (Santyl) 1 applic DAILY TOP Last administered on 09/20/16at 09:04; Admin Dose 1 APPLIC; Start 09/18/16 at 09:00 Acetaminophen (Tylenol Liquid) 650 mg Q4H PRN NGT PAIN AND OR ELEVATED TEMP; Start 09/18/16 at 08:00 Bisacodyl (Dulcolax Supp) 10 mg DAILY PRN [place] CONSTIPATION; Start 09/18/16 at 08:00 Mupirocin (Bactroban) Apply to bilateral nares ... BID TOP Last administered on 09/20/16at 09:04; Admin Dose 1 APPLIC; Start 09/18/16 at 09:00 Mirtazapine (Remeron) 7.5 mg HS GTB Last administered on 09/19/16at 21:10; Admin Dose 7.5 MG; Start 09/18/16 at 21:00 Ondansetron HCl (Zofran Inj) 4 mg Q4H PRN IV NAUSEA AND/OR VOMITING; Start 08/24 at 08:00 Morphine Sulfate (morphine) 2 mg Q3H PRN IV PAIN LEVEL 6-10 Last administered on 09/18/16at 22:23; Admin Dose 2 MG; Start 09/18/16 at 08:00 Lorazepam 0.5 mg 0.5 mg Q3H PRN IV ANXIETY; Start 09/18/16 at 08:00 Norepinephrine 16 mg/Dextrose 500 ml @ 1.87 mls/hr TITRATE IV ; Start at 12:00 Ceftazidime (Fortaz 1gm/50 ml (Pmx)) 50 ml @ 100 mls/hr Q24H IVPB Last administered on 09/20/16at 13:57; Admin Dose 100 MLS/HR; Start 09/18/16 at 14: 00 Amikacin Sulfate (Amikacin Iv Per Pharmacy) PER PHARMACY DOSING NOTE XX ; Start 09/18/16 at 13:00 Vancomycin HCl PER PHARMACY DOSING NOTE XX ; Start 09/18/16 at 13:00 Caspofungin/ Sodium Chloride (Cancidas/NS) 250 ml @ 250 mls/hr Q24H IV Last administered on 09/19/16at 17:01; Admin Dose 250 MLS/HR; Start 09/18/16 at 16: 00 IV Flush (NS 10 ml) 10 ml PRN PRN IV IV PROTOCOL; Start 09/18/16 at 13:00 Sildenafil Citrate (Revatio) 20 mg TID PO ; Start 09/19/16 at 09:00 Miscellaneous Information 1 ea NOTE XX ; Start 09/19/16 at 12:00 Glucose (Glutose) 15 gm Q15M PRN PO DECREASED GLUCOSE; Start 09/19/16 at 12:00 Glucose (Glutose) 22.5 gm Q15M PRN PO DECREASED GLUCOSE; Start 09/19/16 at 12: 00 Dextrose (D50w Syringe) 25 ml Q15M PRN IV DECREASED GLUCOSE; Start 09/19/16 at 12:00 Dextrose (D50w Syringe) 50 ml Q15M PRN IV DECREASED GLUCOSE; Start 09/19/16 at 12:00 Glucagon (Glucagen) 1 mg Q15M PRN IM DECREASED GLUCOSE; Start 09/19/16 at 12: 00 Glucose (Glutose) 15 gm Q15M PRN BUCCAL DECREASED GLUCOSE; Start 09/19/16 at 12:00 Assessment/Plan Additional Assessment/Plan . IMPRESSION 1. Vent dependent respiratory failure. 2. Right pleural effusion, possibly underlying healthcare-associated pneumonia. 3. Pulmonary HTN 4. History of cerebrovascular accident. 5. Encephalopathy. 6. Dysfunctional G-tube with NG tube in place. 7. Septic shock RECS: 1. Continue abx; de-escalate as per cxs 2. Decrease FiO2 as tolerated 3. Increase sildenifil as tolerated by BP 4. Vent support with V-AC 5. TF's/free H20 35 min cc time 2. WALT JUAREZ MD Sep 20, 2016 14:50
[2016-09-20] MEDS: AMIKACIN IVPB SCH (17:30)
[2016-09-20] MEDS: SOD CHLORIDE 0.9% IVPB SCH (17:30)
[2016-09-20] MEDS: CASPOFUNGIN 35 MG in SOD CHLORIDE 0.9% 250 ML IV SCH (17:30)
[2016-09-20] MEDS: MIRTAZAPINE 15 MG TAB GTB SCH (20:57)
[2016-09-20 21:55] LABS: ADD UMIC YES; URINE BILIRUBIN (Dip) 1+ (NEGATIVE); URINE BLOOD (Dip) TRACE (NEGATIVE); URINE COLOR AMBER (YELLOW); URINE GLUCOSE (Dip) NEGATIVE (NEGATIVE); URINE KETONES (Dip) TRACE (NEGATIVE); URINE LEUKOCYTE ESTERASE (Dip) TRACE (NEGATIVE); URINE NITRITE (Dip) NEGATIVE (NEGATIVE); URINE TOTAL PROTEIN (Dip) 1+ (NEGATIVE); URINE UROBILINOGEN (Dip) 0.2 E.U./dL (0.1-1.0)
[2016-09-20 22:09] LABS: ICTOTEST POSITIVE (NEGATIVE)
[2016-09-20 22:11] LABS: SQUAMOUS EPITHELIAL CELL,UR FEW
[2016-09-20 22:12] LABS: MUCUS,URINE MODERATE
[2016-09-21] VITALS (35 sets, daily range): BP systolic 93–146; BP diastolic 39–79; PULSE 71–94; RESP 16–33
[2016-09-21] MEDS: INSULIN ASPART [NOVOLOG] 3 ML PEN SC SCH ×6 (01:00→21:00)
[2016-09-21] MEDS: IPRATROPIUM (HFA) 12.9 GM INHALER INH SCH ×6 (01:36→20:06)
[2016-09-21] MEDS: LEVALBUTEROL (HFA) 15 GM INHALER INH SCH ×6 (01:36→20:06)
[2016-09-21 05:10] LABS: AADO2 Arterial 85.5 mmHg (7.0-24.0); Allen Test ACCEPTAB; Arterial Base Excess 5.5 mmol/L (-3.0-3); Arterial COHb 1.4 % (0.0-3.0); Arterial Fraction of Oxyhgb 92.5 % (93.0-99.0); Arterial HCO3 29.7 mmol/L (22.0-26.0); Arterial Total Hemglobin 4.3 g/dl (12.0-18.0); MODE VENT - AC
[2016-09-21] MEDS: PANTOPRAZOLE 40 MG INJ IV SCH (05:57)
[2016-09-21 06:42] LABS: BASOPHILS % 0.3 % (0.0-2.0); EOSINOPHILS % 0.4 % (0.0-7.0); HEMATOCRIT 22.9 % (37.0-47.0); HEMOGLOBIN 7.3 g/dl (12.0-16.0); LYMPHOCYTES # 1.2 10^3/ul (0.8-2.9); MEAN CORPUSCULAR HEMOGLOBIN 31.3 pg (29.0-33.0); MEAN CORPUSCULAR HGB CONC 31.9 g/dl (32.0-37.0); MEAN CORPUSCULAR VOLUME 97.9 fl (82.0-101.0); MEAN PLATELET VOLUME 7.7 fl (7.4-10.4); MONOCYTE # 0.9 10^3/ul (0.3-0.9); MONOCYTES % 9.3 % (0.0-11.0); NEUTROPHIL # 7.6 10^3/ul (1.6-7.5); PLATELET COUNT 225 10^3/UL (140-440); RED BLOOD COUNT 2.34 10^6/ul (4.20-5.40); RED CELL DISTRIBUTION WIDTH 18.3 % (11.5-14.5); UNCORRECTED WBC 9.8 10^3/ul (4.8-10.8); WHITE BLOOD COUNT 9.8 10^3/ul (4.8-10.8)
[2016-09-21 07:00] LABS: CONDITION 1; LH ANALYZER COMMENTS 1
[2016-09-21] MEDS: COLLAGENASE 30 GM TUBE TOP SCH (09:02)
[2016-09-21] MEDS: LEVETIRACETAM IV 500 MG in DEXTROSE 5% 100 ML IVPB SCH ×2 (09:02→21:01)
[2016-09-21] MEDS: SILDENAFIL 20 MG TAB PO SCH ×3 (09:02→21:01)
[2016-09-21] MEDS: MUPIROCIN 2% 22 GM OINT TOP SCH ×2 (09:03→21:03)
[2016-09-21] MEDS: HEPARIN 5,000 UNIT/0.5 ML SYG SC SCH ×2 (09:06→21:19)
--- NOTE | 2016-09-21 09:35 | CONS ---
Date/Time of Note Date/Time of Note DATE: 09/21/16 TIME: 09:32 Consult Date/Type/Reason Admit Date/Time Sep 17, 2016 at 18:49 Type of Consultation: im/nephro Subjective Pt. seen and examined in ICU. d/w son and rn comfortable on vent. tolerating feedings. s/p HD yesterday. Objective Vital Signs Date Time Temp Pulse Resp B/P Pulse Ox O2 Delivery O2 Flow Rate FiO2 09/21/16 07:00 81 17 110/45 96 Mechanical Ventilator 09/21/16 05:10 30 09/21/16 04:00 98.5 Intake and Output 09/20/16 09/20/16 09/21/16 15:00 23:00 07:00 Intake Total 1205 ml 1400.9 ml 150 ml Output Total 3525 ml Balance -2320 ml 1400.9 ml 150 ml CARDIAC: S1, Increased P2 and 3/6 systolic murmur CHEST: Diminished air entry bilaterally. ABDOMEN: Soft, nontender. No guarding or rebound. EXTREMITIES: No cyanosis, clubbing, edema +2. Results/Medications Result Diagram: 09/21/16 0550 09/20/16 0500 Results 24 hrs Laboratory Tests Test 09/20/16 13:58 09/20/16 17:15 09/20/16 17:31 09/20/16 21:06 Bedside Glucose 161 160 128 Urine Bilirubin 1+ H Urine Clarity CLEAR Urine Color ALDAIR Urine Glucose NEGATIVE Urine Hemoglobin TRACE Urine Ictotest POSITIVE Urine Ketones TRACE H Urine Leukocyte Esterase TRACE H Urine Microscopic RBC 2-5 Urine Microscopic WBC 2-5 Urine Mucus MODERATE Urine Nitrite NEGATIVE Urine Specific [place] >=1.030 H Urine Squamous Epithelial Cells FEW Urine Total Protein 1+ H Urine Urobilinogen 0.2 E.U./dL Urine Yeast MANY Urine pH 5.0 Test 09/21/16 02:02 09/21/16 05:00 09/21/16 05:07 09/21/16 05:50 Bedside Glucose 135 110 Arterial Blood HCO3 29.7 H Arterial Blood Base Excess 5.5 H Arterial Blood Oxygen Saturation 94.8 L Tacho Test ACCEPTAB Arterial Blood Gas Puncture Site Left Radial Arterial Blood Carboxyhemoglobin 1.4 Arterial Blood Date Drawn 09/21/2016 5:03:05 AM Arterial Blood Methemoglobin 1.0 Arterial Blood pCO2 (Temp correct) 42.2 Arterial Blood pH (Temp corrected) 7.466 H Arterial Blood pO2 (Temp corrected) 78.8 L Blood Gas A-a O2 Differential 85.5 H Blood Gas Actual Respiration Rate 20 Blood Gas Critical Value Read Back KATIE COTTON Blood Gas Low PEEP Setting 5.0 Blood Gas Modality VENT - AC Blood Gas Notified Time 09/21/2016 5:09:48 AM Blood Gas Notified Whom LW Blood Gas Respiration Rate 12.0 Blood Gas Specimen Source Blood arterial Blood Gas Temperature 37.0 Blood Gas Tidal Volume 350.0 FiO2 30.0 Oxyhemoglobin Percent 92.5 L Total Hemoglobin 4.3 L Basophils # 0.0 Basophils % 0.3 Blood Morphology Comment Eosinophils # 0.0 Eosinophils % 0.4 Hematocrit 22.9 L Hemoglobin 7.3 L Lactic Acid Level 0.9 Lymphocytes # 1.2 Lymphocytes % 12.0 L Mean Corpuscular Hemoglobin 31.3 Mean Corpuscular Hemoglobin Concent 31.9 L Mean Corpuscular Volume 97.9 Mean Platelet Volume 7.7 Monocytes # 0.9 Monocytes % 9.3 Neutrophils # 7.6 H Neutrophils % 78.0 H Nucleated Red Blood Cells # 0.0 Nucleated Red Blood Cells % 0.0 Platelet Count 225 Red Blood Count 2.34 L Red Cell Distribution Width 18.3 H White Blood Count 9.8 Test 09/21/16 09:11 Bedside Glucose 127 Medications Current Medications Heparin Sodium (Porcine) 5000 unit 5,000 unit BID SC Last administered on 09/21at 09:06; Admin Dose 5,000 UNIT; Start 09/17/16 at 21:00 Levetiracetam/ Dextrose (Keppra Iv/D5W) 105 ml @ 420 mls/hr Q12 IVPB Last administered on 09/21/16at 09:02; Admin Dose 420 MLS/HR; Start 09/18/16 at 09: 00 Pantoprazole (Protonix Iv) 40 mg DAILY@06 IV Last administered on 09/21/16at 05 :57; Admin Dose 40 MG; Start 09/18/16 at 08:00 Insulin Aspart (Novolog Insulin Pen) NOVOLOG *MILD* ALGORI... Q4 SC Last administered on 09/20/16at 17:43; Admin Dose 1 UNIT; Start 09/18/16 at 09:00 Collagenase (Santyl) 1 applic DAILY TOP Last administered on 09/21/16at 09:02; Admin Dose 1 APPLIC; Start 09/18/16 at 09:00 Acetaminophen (Tylenol Liquid) 650 mg Q4H PRN NGT PAIN AND OR ELEVATED TEMP; Start 09/18/16 at 08:00 Bisacodyl (Dulcolax Supp) 10 mg DAILY PRN [place] CONSTIPATION; Start 09/18/16 at 08:00 Mupirocin (Bactroban) Apply to bilateral nares ... BID TOP Last administered on 09/21/16at 09:03; Admin Dose 1 APPLIC; Start 09/18/16 at 09:00 Mirtazapine (Remeron) 7.5 mg HS GTB Last administered on 09/20/16at 20:57; Admin Dose 7.5 MG; Start 09/18/16 at 21:00 Ondansetron HCl (Zofran Inj) 4 mg Q4H PRN IV NAUSEA AND/OR VOMITING; Start 08/24 at 08:00 Morphine Sulfate (morphine) 2 mg Q3H PRN IV PAIN LEVEL 6-10 Last administered on 09/18/16at 22:23; Admin Dose 2 MG; Start 09/18/16 at 08:00 Lorazepam 0.5 mg 0.5 mg Q3H PRN IV ANXIETY; Start 09/18/16 at 08:00 Norepinephrine 16 mg/Dextrose 500 ml @ 1.87 mls/hr TITRATE IV ; Start at 12:00 Ceftazidime (Fortaz 1gm/50 ml (Pmx)) 50 ml @ 100 mls/hr Q24H IVPB Last administered on 09/20/16at 13:57; Admin Dose 100 MLS/HR; Start 09/18/16 at 14: 00 Amikacin Sulfate (Amikacin Iv Per Pharmacy) PER PHARMACY DOSING NOTE XX ; Start 09/18/16 at 13:00 Vancomycin HCl PER PHARMACY DOSING NOTE XX ; Start 09/18/16 at 13:00 Caspofungin/ Sodium Chloride (Cancidas/NS) 250 ml @ 250 mls/hr Q24H IV Last administered on 09/20/16at 17:30; Admin Dose 250 MLS/HR; Start 09/18/16 at 16: 00 IV Flush (NS 10 ml) 10 ml PRN PRN IV IV PROTOCOL; Start 09/18/16 at 13:00 Sildenafil Citrate (Revatio) 20 mg TID PO Last administered on 09/21/16at 09:02 ; Admin Dose 20 MG; Start 09/19/16 at 09:00 Miscellaneous Information 1 ea NOTE XX ; Start 09/19/16 at 12:00 Glucose (Glutose) 15 gm Q15M PRN PO DECREASED GLUCOSE; Start 09/19/16 at 12:00 Glucose (Glutose) 22.5 gm Q15M PRN PO DECREASED GLUCOSE; Start 09/19/16 at 12: 00 Dextrose (D50w Syringe) 25 ml Q15M PRN IV DECREASED GLUCOSE; Start 09/19/16 at 12:00 Dextrose (D50w Syringe) 50 ml Q15M PRN IV DECREASED GLUCOSE; Start 09/19/16 at 12:00 Glucagon (Glucagen) 1 mg Q15M PRN IM DECREASED GLUCOSE; Start 09/19/16 at 12: 00 Glucose (Glutose) 15 gm Q15M PRN BUCCAL DECREASED GLUCOSE; Start 09/19/16 at 12:00 Assessment/Plan Chief Complaint/Hosp Course 1. Septic shock. Etiology is multifactorial, likely secondary to pneumonia and possible decubitus wound. The patient is clinically improving, being weaned off pressor support. Plan at this point is to continue broad-spectrum antimicrobial, antifungal therapy. Will follow up blood cultures, sputum cultures. Will follow up a procalcitonin level. Will follow up with infectious disease for further recommendations. Once the patient off pressor support, will discontinue IV fluids. 2. Ventilatory-dependent respiratory failure. Vent settings have been reviewed. ABG was reviewed. Continue the current settings and monitor. 3. End-stage renal disease. The patient had hemodialysis yesterday and tolerated it well. Anticipate dialysis for tomorrow. Will continue to monitor. 4. Severe pulmonary hypertension. Will continue sildenafil. Will follow up with pulmonary. 5. Anemia. Etiology is likely from chronic disease. Will rule out a gastrointestinal bleed by checking stool for occult blood. -iron panel noted with elevated ferritin. - Will continue Epogen. consider transfusion. 6. Atrial fibrillation, currently rate controlled. Will continue to monitor. Continue medical management. 7. Seizure disorder. Continue Keppra. 8. Acute decompensated heart failure, right-sided heart failure. Continue the current medical management. Continue ultrafiltration dialysis. 9. Stage IV decubitus wound. Continue wound care, low air loss mattress. 10. Diabetes. Continue Accu-Cheks and insulin sliding scale. 11. Mineral bone disorder. The patient's phosphorus levels are low. We will replete. We will discontinue phos binders. 12. Hypokalemia. Replete with potassium chloride. 13. Dysphagia, status post nasogastric tube. Will start tube feedings. 14. Chronic encephalopathy, toxic metabolic. Continue to monitor. 15. History of cerebrovascular accident. Continue medical management. 16. Abdominal distention with ascites. Etiology is likely from right-sided heart failure and end-stage renal disease. Will order a paracentesis and monitor. 17. History of coronary artery disease. Continue medical management. 18. Respiratory alkalosis. Continue to monitor. 19. Gastrointestinal and deep venous thrombosis prophylaxis. Continue PPI and heparin. Problems: TONI QURESHI MD Sep 21, 2016 09:35
[2016-09-21] MEDS: BUDESONIDE (NEB) 0.5MG/2ML AMP HHN SCH ×2 (09:47→20:07)
--- NOTE | 2016-09-21 10:34 | RADRPT ---
PROCEDURE: XR Chest. CLINICAL INDICATION: Chest pain TECHNIQUE: AP view of the chest was performed. COMPARISON: None. FINDINGS: Tracheostomy and nasogastric tube are redemonstrated. Right-sided double-lumen catheter with the ti p in the region of the distal SVC is present. There is bilateral pleural effusions, right greater than left, progressed since the prior exam. The cardiac silhouette is enlarged with atherosclerosis of the aorta. IMPRESSION: 1. Interval progression of bilateral pleural effusions with underlying compressive atelectasis. 2. Support tubes and lines remain stable. RPTAT: [facility] .Jerman Christy MD, MD Date Time Electronically viewed and signed by .Jerman Christy MD, MD on 09/21/2016 10:34 .M/
--- NOTE | 2016-09-21 13:01 | CONS ---
Date/Time of Note Date/Time of Note DATE: 09/21/16 TIME: 12:58 Assessment/Plan Assessment/Plan Chief Complaint/Hosp Course ID PROGRESS NOTE ABX => Vanco IV + Amikacin + Cancidas s/p Levaquin 24H INTERVAL SUMMARY * 81yo F s/p trach placement => Vented, noncommunicative * IMAGIN. Interval progression of bilateral pleural effusions with underlying compressive atelectasis. * Prior Chest x-ray shows pulmonary vascular congestion, retrocardiac opacity, right lower lung infiltrate. Marcus: 09/19/16 Rcvd: 09/19/16 Source: DECUBITUS Sp Descrip: WOUND Microbiology WOUND CULTURE Organism 1 MRSA QUANTITY 1+ Marcus: 09/17/16 Rcvd: 09/18/16 Source: TRACHEAL A Sp Descrip: Microbiology RESPIRATORY CULTURE RESPIRATORY CULTURE Final Organism 1 PSEUDOMONAS AERUGINOSA QUANTITY 2+ P.AERUG M.I.C. RX --------- --- AMIKACIN 8 S AZTREONAM I CEFEPIME 32 R CEFTAZIDIME 16 I CIPROFLOXACIN >=4 R GENTAMICIN 8 I IMIPENEM >=16 R LEVOFLOXACIN >=8 R TOBRAMYCIN <=1 S PIPERACILLIN/TAZOBACTAM R PHYSICAL EXAMINATION: GENERAL: VSS-> weaning pressors, NAD, noncommunicative on Vent HEENT: Unremarkable NECK: Supple, trachea midline. CHEST: Rise symmetrical,=> Vented course BS HEART: S1, S2. ABDOMEN: Soft, benign - Peg EXTREMITIES: Warm, no edema SKIN: STG IV DECUB -> See photos ID ASSESSMENT 81 yo H F w/PMHx Afib, CVA, VDRF-Trach since OCT 2015, Peg, COPD, ESRD admit with: 1. Sepsis w/shock => hypotension on pressors ->Likely GNR from GNR HCAP + DECUB + ?bladder sepsis - anuric * Leukocytosis on admit * Low grade temps on admit 99.7 * Encephalopathy 2/2 #1 2. GNR HCAP = (+PSAR sensitive to Amikacin 3. Right pleural effusion, possibly underlying healthcare-associated pneumonia. 3. Acute decompensated heart failure, right-sided heart failure. Continue ultrafiltration dialysis. 4. Dysfunctional G-tube with NG tube in place. 5. ESRD-> HD w/PermCath 6. Hx of Gastritis 7. STG IV coccygeal decub present on admission * Wound Cx(+)MRSA -> Pending 8. ?UTI -> HD dependent 9. Oral candidiasis ( + )MRSA Nares ->Bactroban INVASIVES: PICC (09/18), Trach, Peg, NGT, PermCath ABX ALLERGY: PCN/SULFA CURRENT ABX: ABX => Vanco IV + Amikacin + Cancidas ID RECOMMENDATIONS Continue Current ABX -> Bactroban to nares Temporary FC overnight to obtain UA + C&S => Pending --> Taper ABX per micro finding and clinical course. -> Wound RC recommendations noted and appreciated . Problems: Consultation Date/Type/Reason Admit Date/Time Sep 17, 2016 at 18:49 Type of Consultation: ID Exam/Review of Systems Vital Signs Vitals Vital Signs Date Time Temp Pulse Resp B/P Pulse Ox O2 Delivery O2 Flow Rate FiO2 09/21/16 10:00 93 25 116/51 98 Mechanical Ventilator 09/21/16 08:00 30 09/21/16 08:00 98.9 Intake and Output 09/20/16 09/20/16 09/21/16 15:00 23:00 07:00 Intake Total 1205 ml 1400.9 ml 150 ml Output Total 3525 ml Balance -2320 ml 1400.9 ml 150 ml Results Result Diagram: 09/21/16 0550 09/20/16 0500 Results 24 hrs Laboratory Tests Test 09/20/16 13:58 09/20/16 17:15 09/20/16 17:31 09/20/16 21:06 Bedside Glucose 161 160 128 Urine Bilirubin 1+ H Urine Clarity CLEAR Urine Color ALDAIR Urine Glucose NEGATIVE Urine Hemoglobin TRACE Urine Ictotest POSITIVE Urine Ketones TRACE H Urine Leukocyte Esterase TRACE H Urine Microscopic RBC 2-5 Urine Microscopic WBC 2-5 Urine Mucus MODERATE Urine Nitrite NEGATIVE Urine Specific [employer] >=1.030 H Urine Squamous Epithelial Cells FEW Urine Total Protein 1+ H Urine Urobilinogen 0.2 E.U./dL Urine Yeast MANY Urine pH 5.0 Test 09/21/16 02:02 09/21/16 05:00 09/21/16 05:07 09/21/16 05:50 Bedside Glucose 135 110 Arterial Blood HCO3 29.7 H Arterial Blood Base Excess 5.5 H Arterial Blood Oxygen Saturation 94.8 L Tacho Test ACCEPTAB Arterial Blood Gas Puncture Site Left Radial Arterial Blood Carboxyhemoglobin 1.4 Arterial Blood Date Drawn 09/21/2016 5:03:05 AM Arterial Blood Methemoglobin 1.0 Arterial Blood pCO2 (Temp correct) 42.2 Arterial Blood pH (Temp corrected) 7.466 H Arterial Blood pO2 (Temp corrected) 78.8 L Blood Gas A-a O2 Differential 85.5 H Blood Gas Actual Respiration Rate 20 Blood Gas Critical Value Read Back KATIE COTTON Blood Gas Low PEEP Setting 5.0 Blood Gas Modality VENT - AC Blood Gas Notified Time 09/21/2016 5:09:48 AM Blood Gas Notified Whom LW Blood Gas Respiration Rate 12.0 Blood Gas Specimen Source Blood arterial Blood Gas Temperature 37.0 Blood Gas Tidal Volume 350.0 FiO2 30.0 Oxyhemoglobin Percent 92.5 L Total Hemoglobin 4.3 L Basophils # 0.0 Basophils % 0.3 Blood Morphology Comment Eosinophils # 0.0 Eosinophils % 0.4 Hematocrit 22.9 L Hemoglobin 7.3 L Lactic Acid Level 0.9 Lymphocytes # 1.2 Lymphocytes % 12.0 L Mean Corpuscular Hemoglobin 31.3 Mean Corpuscular Hemoglobin Concent 31.9 L Mean Corpuscular Volume 97.9 Mean Platelet Volume 7.7 Monocytes # 0.9 Monocytes % 9.3 Neutrophils # 7.6 H Neutrophils % 78.0 H Nucleated Red Blood Cells # 0.0 Nucleated Red Blood Cells % 0.0 Platelet Count 225 Red Blood Count 2.34 L Red Cell Distribution Width 18.3 H White Blood Count 9.8 Test 09/21/16 09:11 Bedside Glucose 127 Medications Medications Current Medications Heparin Sodium (Porcine) 5000 unit 5,000 unit BID SC Last administered on 09/21 09:06; Admin Dose 5,000 UNIT; Start 09/17/16 at 21:00 Levetiracetam/ Dextrose (Keppra Iv/D5W) 105 ml @ 420 mls/hr Q12 IVPB Last administered on 09/21/16 09:02; Admin Dose 420 MLS/HR; Start 09/18/16 at 09: 00 Pantoprazole (Protonix Iv) 40 mg DAILY@06 IV Last administered on 09/21/16 05 :57; Admin Dose 40 MG; Start 09/18/16 at 08:00 Insulin Aspart (Novolog Insulin Pen) NOVOLOG *MILD* ALGORI... Q4 SC Last administered on 09/20/16 17:43; Admin Dose 1 UNIT; Start 09/18/16 at 09:00 Collagenase (Santyl) 1 applic DAILY TOP Last administered on 09/21/16 09:02; Admin Dose 1 APPLIC; Start 09/18/16 at 09:00 Acetaminophen (Tylenol Liquid) 650 mg Q4H PRN NGT PAIN AND OR ELEVATED TEMP; Start 09/18/16 at 08:00 Bisacodyl (Dulcolax Supp) 10 mg DAILY PRN DC CONSTIPATION; Start 09/18/16 at 08:00 Mupirocin (Bactroban) Apply to bilateral nares ... BID TOP Last administered on 09/21/16 09:03; Admin Dose 1 APPLIC; Start 09/18/16 at 09:00 Mirtazapine (Remeron) 7.5 mg HS GTB Last administered on 09/20/16 20:57; Admin Dose 7.5 MG; Start 09/18/16 at 21:00 Ondansetron HCl (Zofran Inj) 4 mg Q4H PRN IV NAUSEA AND/OR VOMITING; Start 08/24 at 08:00 Morphine Sulfate (morphine) 2 mg Q3H PRN IV PAIN LEVEL 6-10 Last administered on 09/18/16at 22:23; Admin Dose 2 MG; Start 09/18/16 at 08:00 Lorazepam 0.5 mg 0.5 mg Q3H PRN IV ANXIETY; Start 09/18/16 at 08:00 Norepinephrine 16 mg/Dextrose 500 ml @ 1.87 mls/hr TITRATE IV ; Start at 12:00 Ceftazidime (Fortaz 1gm/50 ml (Pmx)) 50 ml @ 100 mls/hr Q24H IVPB Last administered on 09/20/16at 13:57; Admin Dose 100 MLS/HR; Start 09/18/16 at 14: 00 Amikacin Sulfate (Amikacin Iv Per Pharmacy) PER PHARMACY DOSING NOTE XX ; Start 09/18/16 at 13:00 Vancomycin HCl PER PHARMACY DOSING NOTE XX ; Start 09/18/16 at 13:00 Caspofungin/ Sodium Chloride (Cancidas/NS) 250 ml @ 250 mls/hr Q24H IV Last administered on 09/20/16at 17:30; Admin Dose 250 MLS/HR; Start 09/18/16 at 16: 00 IV Flush (NS 10 ml) 10 ml PRN PRN IV IV PROTOCOL; Start 09/18/16 at 13:00 Sildenafil Citrate (Revatio) 20 mg TID PO Last administered on 09/21/16at 09:02 ; Admin Dose 20 MG; Start 09/19/16 at 09:00 Miscellaneous Information 1 ea NOTE XX ; Start 09/19/16 at 12:00 Glucose (Glutose) 15 gm Q15M PRN PO DECREASED GLUCOSE; Start 09/19/16 at 12:00 Glucose (Glutose) 22.5 gm Q15M PRN PO DECREASED GLUCOSE; Start 09/19/16 at 12: 00 Dextrose (D50w Syringe) 25 ml Q15M PRN IV DECREASED GLUCOSE; Start 09/19/16 at 12:00 Dextrose (D50w Syringe) 50 ml Q15M PRN IV DECREASED GLUCOSE; Start 09/19/16 at 12:00 Glucagon (Glucagen) 1 mg Q15M PRN IM DECREASED GLUCOSE; Start 09/19/16 at 12: 00 Glucose (Glutose) 15 gm Q15M PRN BUCCAL DECREASED GLUCOSE; Start 09/19/16 at 12:00 JOEY RODRIGUEZ NP Sep 21, 2016 13:01
[2016-09-21] MEDS: CEFTAZIDIME 1GM/50 ML (PMX) 50 ML IVPB SCH (14:19)
--- NOTE | 2016-09-21 15:11 | CONS ---
Date/Time of Note Date/Time of Note DATE: 09/21/16 TIME: 15:09 Consult Date/Type/Reason Admit Date/Time Sep 17, 2016 at 18:49 Type of Consultation: pulm Subjective No events overnight. On MV. Objective Vital Signs Date Time Temp Pulse Resp B/P Pulse Ox O2 Delivery O2 Flow Rate FiO2 09/21/16 14:00 81 33 114/56 95 Mechanical Ventilator 09/21/16 12:00 98.1 09/21/16 08:00 30 Intake and Output 09/20/16 09/20/16 09/21/16 15:00 23:00 07:00 Intake Total 1205 ml 1400.9 ml 150 ml Output Total 3525 ml Balance -2320 ml 1400.9 ml 150 ml CARDIAC: S1, Increased P2 and 3/6 systolic murmur CHEST: Diminished air entry bilaterally. ABDOMEN: Soft, nontender. No guarding or rebound. EXTREMITIES: No cyanosis, clubbing, edema +2. Results/Medications Result Diagram: 09/21/16 0550 09/20/16 0500 Results 24 hrs Laboratory Tests Test 09/20/16 17:15 09/20/16 17:31 09/20/16 21:06 09/21/16 02:02 Urine Bilirubin 1+ H Urine Clarity CLEAR Urine Color ALDAIR Urine Glucose NEGATIVE Urine Hemoglobin TRACE Urine Ictotest POSITIVE Urine Ketones TRACE H Urine Leukocyte Esterase TRACE H Urine Microscopic RBC 2-5 Urine Microscopic WBC 2-5 Urine Mucus MODERATE Urine Nitrite NEGATIVE Urine Specific [employer] >=1.030 H Urine Squamous Epithelial Cells FEW Urine Total Protein 1+ H Urine Urobilinogen 0.2 E.U./dL Urine Yeast MANY Urine pH 5.0 Bedside Glucose 160 128 135 Test 09/21/16 05:00 09/21/16 05:07 09/21/16 05:50 09/21/16 09:11 Arterial Blood HCO3 29.7 H Arterial Blood Base Excess 5.5 H Arterial Blood Oxygen Saturation 94.8 L Tacho Test ACCEPTAB Arterial Blood Gas Puncture Site Left Radial Arterial Blood Carboxyhemoglobin 1.4 Arterial Blood Date Drawn 09/21/2016 5:03:05 AM Arterial Blood Methemoglobin 1.0 Arterial Blood pCO2 (Temp correct) 42.2 Arterial Blood pH (Temp corrected) 7.466 H Arterial Blood pO2 (Temp corrected) 78.8 L Blood Gas A-a O2 Differential 85.5 H Blood Gas Actual Respiration Rate 20 Blood Gas Critical Value Read Back KATIE COTTON Blood Gas Low PEEP Setting 5.0 Blood Gas Modality VENT - AC Blood Gas Notified Time 09/21/2016 5:09:48 AM Blood Gas Notified Whom LW Blood Gas Respiration Rate 12.0 Blood Gas Specimen Source Blood arterial Blood Gas Temperature 37.0 Blood Gas Tidal Volume 350.0 FiO2 30.0 Oxyhemoglobin Percent 92.5 L Total Hemoglobin 4.3 L Bedside Glucose 110 127 Basophils # 0.0 Basophils % 0.3 Blood Morphology Comment Eosinophils # 0.0 Eosinophils % 0.4 Hematocrit 22.9 L Hemoglobin 7.3 L Lactic Acid Level 0.9 Lymphocytes # 1.2 Lymphocytes % 12.0 L Mean Corpuscular Hemoglobin 31.3 Mean Corpuscular Hemoglobin Concent 31.9 L Mean Corpuscular Volume 97.9 Mean Platelet Volume 7.7 Monocytes # 0.9 Monocytes % 9.3 Neutrophils # 7.6 H Neutrophils % 78.0 H Nucleated Red Blood Cells # 0.0 Nucleated Red Blood Cells % 0.0 Platelet Count 225 Red Blood Count 2.34 L Red Cell Distribution Width 18.3 H White Blood Count 9.8 Test 09/21/16 13:31 Bedside Glucose 126 Medications Current Medications Heparin Sodium (Porcine) 5000 unit 5,000 unit BID SC Last administered on 09/21at 09:06; Admin Dose 5,000 UNIT; Start 09/17/16 at 21:00 Levetiracetam/ Dextrose (Keppra Iv/D5W) 105 ml @ 420 mls/hr Q12 IVPB Last administered on 09/21/16at 09:02; Admin Dose 420 MLS/HR; Start 09/18/16 at 09: 00 Pantoprazole (Protonix Iv) 40 mg DAILY@06 IV Last administered on 09/21/16 05 :57; Admin Dose 40 MG; Start 09/18/16 at 08:00 Insulin Aspart (Novolog Insulin Pen) NOVOLOG *MILD* ALGORI... Q4 SC Last administered on 09/20/16at 17:43; Admin Dose 1 UNIT; Start 09/18/16 at 09:00 Collagenase (Santyl) 1 applic DAILY TOP Last administered on 09/21/16at 09:02; Admin Dose 1 APPLIC; Start 09/18/16 at 09:00 Acetaminophen (Tylenol Liquid) 650 mg Q4H PRN NGT PAIN AND OR ELEVATED TEMP; Start 09/18/16 at 08:00 Bisacodyl (Dulcolax Supp) 10 mg DAILY PRN [place] CONSTIPATION; Start 09/18/16 at 08:00 Mupirocin (Bactroban) Apply to bilateral nares ... BID TOP Last administered on 09/21/16at 09:03; Admin Dose 1 APPLIC; Start 09/18/16 at 09:00 Mirtazapine (Remeron) 7.5 mg HS GTB Last administered on 09/20/16at 20:57; Admin Dose 7.5 MG; Start 09/18/16 at 21:00 Ondansetron HCl (Zofran Inj) 4 mg Q4H PRN IV NAUSEA AND/OR VOMITING; Start 08/24 at 08:00 Morphine Sulfate (morphine) 2 mg Q3H PRN IV PAIN LEVEL 6-10 Last administered on 09/18/16at 22:23; Admin Dose 2 MG; Start 09/18/16 at 08:00 Lorazepam 0.5 mg 0.5 mg Q3H PRN IV ANXIETY; Start 09/18/16 at 08:00 Norepinephrine 16 mg/Dextrose 500 ml @ 1.87 mls/hr TITRATE IV ; Start at 12:00 Ceftazidime (Fortaz 1gm/50 ml (Pmx)) 50 ml @ 100 mls/hr Q24H IVPB Last administered on 09/21/16at 14:19; Admin Dose 100 MLS/HR; Start 09/18/16 at 14: 00 Amikacin Sulfate (Amikacin Iv Per Pharmacy) PER PHARMACY DOSING NOTE XX ; Start 09/18/16 at 13:00 Vancomycin HCl PER PHARMACY DOSING NOTE XX ; Start 09/18/16 at 13:00 Caspofungin/ Sodium Chloride (Cancidas/NS) 250 ml @ 250 mls/hr Q24H IV Last administered on 09/20/16at 17:30; Admin Dose 250 MLS/HR; Start 09/18/16 at 16: 00 IV Flush (NS 10 ml) 10 ml PRN PRN IV IV PROTOCOL; Start 09/18/16 at 13:00 Sildenafil Citrate (Revatio) 20 mg TID PO Last administered on 09/21/16at 13:29 ; Admin Dose 20 MG; Start 09/19/16 at 09:00 Miscellaneous Information 1 ea NOTE XX ; Start 09/19/16 at 12:00 Glucose (Glutose) 15 gm Q15M PRN PO DECREASED GLUCOSE; Start 09/19/16 at 12:00 Glucose (Glutose) 22.5 gm Q15M PRN PO DECREASED GLUCOSE; Start 09/19/16 at 12: 00 Dextrose (D50w Syringe) 25 ml Q15M PRN IV DECREASED GLUCOSE; Start 09/19/16 at 12:00 Dextrose (D50w Syringe) 50 ml Q15M PRN IV DECREASED GLUCOSE; Start 09/19/16 at 12:00 Glucagon (Glucagen) 1 mg Q15M PRN IM DECREASED GLUCOSE; Start 09/19/16 at 12: 00 Glucose (Glutose) 15 gm Q15M PRN BUCCAL DECREASED GLUCOSE; Start 09/19/16 at 12:00 Assessment/Plan Additional Assessment/Plan IMPRESSION 1. Vent dependent respiratory failure 2. Right pleural effusion, query healthcare-associated pneumonia. 3. Pulmonary HTN 4. History of cerebrovascular accident. 5. Encephalopathy. 6. Dysfunctional G-tube with NG tube in place. 7. Septic shock 8 CKD RECS: 1. Continue abx; de-escalate as per cxs 2. Decrease FiO2 as tolerated 3. Increase sildenifil as tolerated by BP 4. Vent support with V-AC 5. TF's/free H20 6. Transfuse RBC 35 min cc time WALT JUAREZ MD Sep 21, 2016 15:11
[2016-09-21] MEDS: CASPOFUNGIN 35 MG in SOD CHLORIDE 0.9% 250 ML IV SCH (17:22)
[2016-09-21] MEDS: MIRTAZAPINE 15 MG TAB GTB SCH (21:01)
[2016-09-22] VITALS (46 sets, daily range): BP systolic 94–128; BP diastolic 46–79; PULSE 68–92; RESP 16–89
[2016-09-22] MEDS: INSULIN ASPART [NOVOLOG] 3 ML PEN SC SCH ×6 (01:00→20:53)
[2016-09-22] MEDS: IPRATROPIUM (HFA) 12.9 GM INHALER INH SCH ×6 (01:25→21:36)
[2016-09-22] MEDS: LEVALBUTEROL (HFA) 15 GM INHALER INH SCH ×6 (01:25→21:35)
[2016-09-22 04:48] LABS: BASOPHILS % 0.5 % (0.0-2.0); EOSINOPHILS # 0.1 10^3/ul (0.0-0.5); EOSINOPHILS % 1.2 % (0.0-7.0); HEMATOCRIT 23.2 % (37.0-47.0); HEMOGLOBIN 7.4 g/dl (12.0-16.0); LYMPHOCYTES # 1.2 10^3/ul (0.8-2.9); LYMPHOCYTES % 14.3 % (15.0-51.0); MEAN CORPUSCULAR HEMOGLOBIN 31.1 pg (29.0-33.0); MEAN CORPUSCULAR VOLUME 97.3 fl (82.0-101.0); MEAN PLATELET VOLUME 7.9 fl (7.4-10.4); MONOCYTE # 0.7 10^3/ul (0.3-0.9); MONOCYTES % 8.2 % (0.0-11.0); NEUTROPHIL # 6.5 10^3/ul (1.6-7.5); NEUTROPHILS % 75.8 % (39.0-77.0); PLATELET COUNT 226 10^3/UL (140-440); RED BLOOD COUNT 2.39 10^6/ul (4.20-5.40); RED CELL DISTRIBUTION WIDTH 17.7 % (11.5-14.5); UNCORRECTED WBC 8.6 10^3/ul (4.8-10.8); WHITE BLOOD COUNT 8.6 10^3/ul (4.8-10.8)
[2016-09-22 04:56] LABS: CONDITION 1; LH ANALYZER COMMENTS 1
[2016-09-22] MEDS: PANTOPRAZOLE 40 MG INJ IV SCH (05:16)
[2016-09-22 05:27] LABS: POTASSIUM 4.6 mmol/L (3.5-5.1)
[2016-09-22 05:30] LABS: CREATININE 2.36 mg/dl (0.44-1.00)
[2016-09-22 05:31] LABS: CALCIUM 9.2 mg/dl (8.4-10.2); MAGNESIUM 2.4 mg/dl (1.7-2.5); PHOSPHORUS 3.6 mg/dl (2.5-4.9)
[2016-09-22] MEDS: BUDESONIDE (NEB) 0.5MG/2ML AMP HHN SCH ×3 (08:58→21:36)
--- NOTE | 2016-09-22 09:04 | PN ---
DATE: 09/22/2016 SUBJECTIVE: The patient is critical, but stable, no acute events overnight. No hemoptysis, hematem esis, hematochezia. OBJECTIVE: VITAL SIGNS: Blood pressure is 111/50, respirations 25, pulse 72, temperature 98.2. HEENT: Head is normocephalic. NECK: Supple. HEART: Regular rate. LUNGS: Show diminished breath sounds at the base. ABDOMEN: Soft, nontender to palpation without rebound or guarding. EXTREMITIES: Negative for clubbing, cyanosis, no edema. DERMATOLOGIC: No rashes. MUSCULOSKELETAL: No joint effusions. NEUROLOGIC: No change in exam. MEDICATIONS: The patient's medications have been reviewed. LABORATORY DATA: Sodium 151, potassium 4.6, chloride 104, BUN 66, creatinine 2.36. White count 8.6 , hemoglobin 7.4, hematocrit 33.2, platelet count is 226. ASSESSMENT AND PLAN: 1. Sepsis, status post shock, etiology secondary to pneumonia, decubitus wound. The patient is cli nically improving. Continue antimicrobial antifungal therapy. 2. Ventilator-dependent respiratory failure. Vent settings reviewed. ABG is reviewed. Continue c urrent settings, monitor. 3. End-stage renal disease. The patient is scheduled for hemodialysis today. 4. Severe pulmonary hypertension. Continue . 5. Anemia. Continue to monitor hemoglobin and hematocrit levels. Continue Epogen. 6. Atrial fibrillation, currently rate controlled. Continue medical management. 7. Seizure disorder. Continue Keppra. 8. Stage IV decubitus. Will continue wound care, low air loss mattress. 9. Diabetes, continue Accu-Cheks and insulin sliding scale. 10. Mineral bone disorder. Continue to monitor calcium and phosphorus levels. 11. Dysphagia status post PEG. Continue tube feeding. 12. Chronic encephalopathy. No change. 13. History of cerebrovascular accident. Continue medical management. 14. Coronary artery disease. Continue medical management. 15. Gastrointestinal and deep venous thrombosis prophylaxis. Continue PPI and heparin. 16. History of abdominal distention and ascites secondary to right-sided heart failure. Continue t o monitor. Will order paracenteses as needed. 17. Right-sided heart failure. Continue current medical management. Follow up with cardiology. Dictated By: RUDDY BUSTILLOS/ARNOLDO Conf#: [id number] [facility]#: [id number]
[2016-09-22] MEDS: SILDENAFIL 20 MG TAB PO SCH ×3 (09:18→20:52)
[2016-09-22] MEDS: HEPARIN 5,000 UNIT/0.5 ML SYG SC SCH ×2 (09:19→21:16)
[2016-09-22] MEDS: MUPIROCIN 2% 22 GM OINT TOP SCH ×2 (09:20→20:53)
[2016-09-22] MEDS: COLLAGENASE 30 GM TUBE TOP SCH (09:21)
[2016-09-22] MEDS: LEVETIRACETAM IV 500 MG in DEXTROSE 5% 100 ML IVPB SCH ×2 (09:25→20:52)
--- NOTE | 2016-09-22 11:42 | PN ---
DATE: 09/22/2016 SUBJECTIVE: No changes overnight per report. The patient is alert, denies pain, looks comfortable. Family at bedside. No fevers. VITAL SIGNS: Temperature 98.3, pulse 74, respirations 20, blood pressure 111/53, saturation 97% on 30 FIO2. LABORATORY: WBC 8.6, H and H 7.4 and 33.2, platelets 226, neutrophils 75.8. INDWELLINGS: Trach, PEG, left chest Perm-A-Cath, left upper extremity PICC line. MICROBIOLOGY: Nares swab positive for MRSA. Endotracheal aspirate growing multidrug resistant Pseu domonas, sacral decubitus wound growing MRSA. Urine culture and blood cultures remain negative. ANTIMICROBIALS: 1. Amikacin/ 2. Cancidas. 4. Fortaz. 5. Vancomycin. Vancomycin trough this morning 12.2. PHYSICAL EXAMINATION: GENERAL: This is a chronically ill-appearing, elderly woman who is in no distress. HEENT: Head atraumatic, normocephalic. Sclerae anicteric. Buccal mucosa dry. NECK: Supple. Tracheostomy present. CHEST: Rise symmetrical. Breath sounds diminished at the bases. HEART: S1, S2. ABDOMEN: Soft, bowel tones present. EXTREMITIES: Without cyanosis. ASSESSMENT: 1. Severe sepsis, status post shock. 2. Healthcare-associated pneumonia. 3. Right pleural effusion, possibly loculated, possibly empyema with pleural fluid, cytology on 07/2016 revealed white blood cell count of 2350, LDH 200, glucose 159. 4. End-stage renal disease, hemodialysis dependent. 5. History of cerebrovascular accident. 6. G-tube dysfunction now with Dubhoff. 7. Methicillin-resistant Staphylococcus aureus positive nares and methicillin-resistant Staphylococ cus aureus infected sacral wound. PLAN: We are going to discontinue Fortaz. Continue vancomycin, amikacin. Discontinue Cancidas. C ontinue Bactroban to nares. We will order Hibiclens bath daily for MRSA decontamination. Discontin ue Cancidas. Dictated By: RAISSA ROA SERGEANT OF CORRECTIONS for TUAN NELSON MD NI/NTS Conf#: [id number] DID#: [id number]
[2016-09-22] MEDS: AMIKACIN IVPB SCH (16:16)
[2016-09-22] MEDS: SOD CHLORIDE 0.9% IVPB SCH (16:16)
--- NOTE | 2016-09-22 19:28 | PN ---
DATE: 09/22/2016 SUBJECTIVE: Discussed with the staff. Discussed with the patient's son. The patient remains trach on the vent in the ICU. Currently, off all pressors. Blood pressure has remained stable. Had monae lysis done today. The patient remains nonverbal. Rhythm strip was reviewed. The patient is still in atrial fibrillation, but heart rate under good control. MEDICATIONS: Reviewed as per medication reconciliation, personally reviewed. PHYSICAL EXAMINATION: VITAL SIGNS: Temperature 98.1, heart rate of 78, blood pressure 99/49, respiration rate of 19, satu rating 94%. HEENT: Normocephalic, atraumatic. Thin female. Status post tracheostomy on the vent. Oropharynx with NG tube in place. CARDIOVASCULAR: Irregularly irregular. PULMONARY: With no wheezes. GASTROINTESTINAL: Distended, otherwise no rebound or guarding. EXTREMITIES: With trivial edema. NEUROLOGIC: Awake, follows commands. LABORATORY: WBC of 8.6, hemoglobin 7.4, platelets 226. Sodium 151, potassium 4.6, BUN of ____, cre atinine 2.32, glucose of 81. ____ stools are negative x2. ASSESSMENT AND PLAN: 1. Hypoxemic respiratory failure. 2. Atrial fibrillation. 3. Pleural effusion. 4. Pulmonary hypertension. 5. Possible atrial septal defect/patent foramen ovale. 6. Shock, currently improved. 7. Renal failure, status post dialysis. 8. Severe anemia. RECOMMENDATIONS: We will continue with the vent support. Antibiotic is managed as per ID and inter nal medicine. Otherwise, she will be continued as tolerated. The patient has pulmonary hypertensio n. Diabetic control with insulin. We will continue with the ICU care. Dictated By: AMANDA PINTO MD AV/ARNOLDO Conf#: [id number] DID#: [id number] CC: EWA MELISSA DO; RUDDY GEE DO;*EndCC*
[2016-09-22] MEDS: MIRTAZAPINE 15 MG TAB GTB SCH (20:52)
[2016-09-23] VITALS (35 sets, daily range): BP systolic 90–135; BP diastolic 41–70; PULSE 65–83; RESP 12–27
[2016-09-23] MEDS: INSULIN ASPART [NOVOLOG] 3 ML PEN SC SCH ×6 (01:00→20:53)
[2016-09-23] MEDS: IPRATROPIUM (HFA) 12.9 GM INHALER INH SCH ×6 (01:27→21:14)
[2016-09-23] MEDS: LEVALBUTEROL (HFA) 15 GM INHALER INH SCH ×6 (01:27→21:14)
[2016-09-23 05:10] LABS: POTASSIUM 4.2 mmol/L (3.5-5.1)
[2016-09-23 05:11] LABS: BASOPHILS % 0.5 % (0.0-2.0); EOSINOPHILS # 0.1 10^3/ul (0.0-0.5); HEMATOCRIT 23.1 % (37.0-47.0); HEMOGLOBIN 7.4 g/dl (12.0-16.0); LYMPHOCYTES # 1.3 10^3/ul (0.8-2.9); LYMPHOCYTES % 14.9 % (15.0-51.0); MEAN CORPUSCULAR HEMOGLOBIN 31.1 pg (29.0-33.0); MEAN CORPUSCULAR HGB CONC 32.2 g/dl (32.0-37.0); MEAN CORPUSCULAR VOLUME 96.6 fl (82.0-101.0); MEAN PLATELET VOLUME 8.1 fl (7.4-10.4); MONOCYTE # 0.7 10^3/ul (0.3-0.9); NEUTROPHIL # 6.4 10^3/ul (1.6-7.5); NEUTROPHILS % 75.6 % (39.0-77.0); PLATELET COUNT 220 10^3/UL (140-440); RED BLOOD COUNT 2.39 10^6/ul (4.20-5.40); RED CELL DISTRIBUTION WIDTH 17.2 % (11.5-14.5); UNCORRECTED WBC 8.5 10^3/ul (4.8-10.8); WHITE BLOOD COUNT 8.5 10^3/ul (4.8-10.8)
[2016-09-23 05:12] LABS: CREATININE 1.74 mg/dl (0.44-1.00)
[2016-09-23 05:13] LABS: CALCIUM 8.8 mg/dl (8.4-10.2); MAGNESIUM 2.1 mg/dl (1.7-2.5); PHOSPHORUS 3.3 mg/dl (2.5-4.9)
[2016-09-23] MEDS: PANTOPRAZOLE 40 MG INJ IV SCH (05:21)
[2016-09-23 05:26] LABS: CONDITION 1; LH ANALYZER COMMENTS 1
[2016-09-23] MEDS: BUDESONIDE (NEB) 0.5MG/2ML AMP HHN SCH ×2 (08:27→21:14)
[2016-09-23] MEDS: SILDENAFIL 20 MG TAB PO SCH ×3 (08:40→20:53)
[2016-09-23] MEDS: LEVETIRACETAM IV 500 MG in DEXTROSE 5% 100 ML IVPB SCH ×2 (08:40→20:53)
[2016-09-23] MEDS: COLLAGENASE 30 GM TUBE TOP SCH (08:41)
[2016-09-23] MEDS: MUPIROCIN 2% 22 GM OINT TOP SCH ×2 (08:41→20:54)
[2016-09-23] MEDS ORDERED: EPOETIN 4000 UNITS/1 ML INJ (ESRD) SC ONE (09:00)
[2016-09-23] MEDS: HEPARIN 5,000 UNIT/0.5 ML SYG SC SCH ×2 (10:46→21:13)
[2016-09-23] MEDS: SOD FERRIC GLUC COMPLX 125 MG in SOD CHLORIDE 0.9% 100 ML IVPB SCH (10:47)
--- NOTE | 2016-09-23 13:07 | PN ---
DATE: 09/23/2016 CARDIOLOGY FOLLOWUP SUBJECTIVE: No new cardiac events. Discussed with the staff. Rhythm strip was reviewed and discus sed with the patient's son at bedside, the patient remains on status post tracheostomy on the vent. Heart rate has remained stable, but still in atrial fibrillation. The patient denies any pain to m e at this point. MEDICATIONS: Reviewed. PHYSICAL EXAMINATION: VITAL SIGNS: Temperature 97.7, heart rate of 74, blood pressure 105/46, respiration rate of 18, sat urating 96% on the vent. HEENT: Normocephalic, atraumatic. Elderly female. Pupils are equal. NECK: Status post tracheostomy. CARDIOVASCULAR: Irregularly irregular. PULMONARY: With no wheezes now. GASTROINTESTINAL: Soft. No rebound or guarding. EXTREMITIES: Trivial edema. NEUROLOGIC: Awake, responds appropriately . LABORATORY: WBC of 8.5, hemoglobin 7.4, platelets 220. Sodium 135, potassium 4.2, BUN of 41, creat inine 1.74, glucose of . ASSESSMENT AND PLAN: 1. Hypoxemic respiratory failure, status post tracheostomy, on the vent. 2. Atrial fibrillation, chronic. Heart rate controlled. 3. Pleural effusion, pulmonary hypertension. 4. Cannot rule AST or PFO. 5. Status post shock, probably septic, currently improved. 6. Renal failure, status post dialysis. 7. Anemia. RECOMMENDATIONS: We will continue with the current cardiac care. Vent support will be continued. Blood pressure has remained stable. Antibiotic is managed as per ID's recommendations. Dictated By: AMANDA LARA/ARNOLDO Conf#: [id number] DID#: [id number]
--- NOTE | 2016-09-23 13:14 | PN ---
DATE: 09/23/2016 SUBJECTIVE: No changes overnight. The patient is lying comfortably in bed. No fevers. VITAL SIGNS: Temperature 97.7, pulse 74, respirations 18, blood pressure 105/46 , saturation 96% on 30 FIO2. WBC 8.5, H and H 7.4 and 23.1, platelets 220, neutrophils 75.6, BUN 41, creatinine 1.74. MICROBIOLOGY: Endotracheal aspirate growing multidrug resistant Pseudomonas. Blood cultures negative, wound culture of her sacrum growing MRSA. Urine culture growing Kelly glabrata. INDWELLINGS: The patient has endotracheal tube, PEG, Dobhoff, Perm-A-Cath. On the right IJ and left upper extremity PICC line placed on 09/18/2016. ANTIMICROBIALS: 1. Amikacin. 2. Vancomycin. PHYSICAL EXAMINATION: GENERAL: Fragile, chronically ill-appearing, elderly woman who is lying comfortably in bed. HEENT: Head atraumatic, normocephalic. Sclerae anicteric. Buccal mucosa dry. NECK: Supple. Tracheostomy present. CHEST: Rise symmetrical. Breath sounds diminished to bases. HEART: S1, S2. ABDOMEN: Soft, bowel tones present. EXTREMITIES: Without cyanosis. ASSESSMENT: 1. Resolving sepsis status post shock. 2. Healthcare-associated pneumonia with parapneumonic pleural effusion and sputum culture growing multi-drug resistant Pseudomonas aeruginosa. 3. Methicillin-resistant Staphylococcus aureus infected decubitus. 4. Kelly glabrata urinary tract infection. 5. Methicillin-resistant Staphylococcus aureus nares colonization. 6. End-stage renal disease, hemodialysis dependent. 7. History of cerebrovascular accident. 8. ALLERGY TO PENICILLIN AND SULFA. PLAN: The patient remains stable. She is on appropriate antimicrobials and getting topical Bactroban to nares as well as Hibiclens baths daily. We are going to add Voriconazole to the regimen. Dictated By: RAISSA ROA TERRAZZO WORKER for TUAN EDWARD/ARNOLDO Conf#: [id number] DID#: [id number] [id number]
--- NOTE | 2016-09-23 13:55 | PN ---
DATE: 09/23/2016 SUBJECTIVE: The patient had hemodialysis yesterday, tolerated it well without any complications. N o other acute events noted. OBJECTIVE: VITAL SIGNS: Blood pressure is 105/ , respiration 18, pulse 67, temperature is 97.7. I's AND O'S: The patient had 2.5 liters in, 500 out. HEENT: Head is normocephalic. NECK: Supple. HEART: Regular rate. LUNGS: Show diminished breath sounds at the base. ABDOMEN: Soft, nontender to palpation. No rebound or guarding. The patient's abdomen is distended. Positive fluid waves. EXTREMITIES: Negative for clubbing, cyanosis. No edema. DERMATOLOGIC: No rashes. MUSCULOSKELETAL EXAMINATION: No joint effusions. NEUROLOGIC: No change in exam. DIAGNOSTICS: Cultures: The patient's urine culture is positive for yeast. Wound culture: MRSA. LABORATORY DATA: Shows white count 8.5, hemoglobin 7.4, hematocrit 23.1, platelet count 220. Sodiu m 135, potassium 4.2, chloride 93, BUN 21, creatinine 1.74, blood culture/stool culture negative. ASSESSMENT AND PLAN: 1. Sepsis status post shock. Etiology is secondary to pneumonia, decubitus wound. The patient is clinically improving. Continue antimicrobial therapy. 2. Fungal urinary tract infection. Continue antifungal therapy. 3. Ventilator dependent respiratory failure. Vent settings reviewed. Continue current settings. 4. End-stage renal disease. The patient had hemodialysis yesterday, tolerated it well. Plan for d ialysis tomorrow. 5. Pulmonary hypertension. Continue sildenafil. 6. Anemia. Hemoglobin levels are low but stable. We will give the patient an iron run with Ferrle cit. We will continue Epogen. If hemoglobin level should drop below 7 grams, we will transfuse 2 u nits of PRBC. 7. Atrial fibrillation, rate controlled. Continue medical management. 8. Seizure disorder. Continue Keppra. 9. Stage IV decubitus wound. Continue wound care, low air loss mattress 10. Diabetes. Continue Accu-Cheks and insulin sliding scale. 11. Mineral bone disorder. Continue to monitor calcium and phosphorus levels. 12. Dysphagia status post percutaneous endoscopic gastrostomy. Continue tube feeds. 13. Chronic encephalopathy. No change. 14. History of cerebrovascular accident. 15. Coronary artery disease. Continue medical management. 16. Abdominal distention and ascites. We will order paracentesis. 17. Congestive heart failure/right-sided heart failure. Continue medical management and follow up with cardiology. 18. Gastrointestinal and deep venous thrombosis prophylaxis. Continue proton pump inhibitor and he ellyn. Dictated By: RUDDY BUSTILLOS/ARNOLDO Conf#: [id number] DID#: [id number]
[2016-09-23] MEDS: VANCOMYCIN 1 GM in NS 250 ML IVPB SCH (13:58)
[2016-09-23 19:04] LABS: INR 1.26; PROTIME 15.9 Sec (12.2-14.2); PT RATIO 1.2
[2016-09-23 19:05] LABS: PARTIAL THROMBOPLASTIN TIME 35.6 Sec (25.0-35.0)
[2016-09-23] MEDS: VORICONAZOLE 200 MG TAB PO SCH (20:52)
[2016-09-23] MEDS: MIRTAZAPINE 15 MG TAB GTB SCH (20:52)
[2016-09-24] VITALS (38 sets, daily range): BP systolic 102–125; BP diastolic 42–77; PULSE 65–91; RESP 15–24
[2016-09-24] MEDS: LEVALBUTEROL (HFA) 15 GM INHALER INH SCH ×6 (00:53→21:16)
[2016-09-24] MEDS: IPRATROPIUM (HFA) 12.9 GM INHALER INH SCH ×6 (00:53→21:16)
[2016-09-24] MEDS: INSULIN ASPART [NOVOLOG] 3 ML PEN SC SCH ×6 (00:58→21:00)
[2016-09-24] MEDS: PANTOPRAZOLE 40 MG INJ IV SCH (05:59)
[2016-09-24 06:51] LABS: BASOPHIL # 0.1 10^3/ul (0.0-0.1); BASOPHILS % 0.6 % (0.0-2.0); EOSINOPHILS # 0.1 10^3/ul (0.0-0.5); EOSINOPHILS % 0.7 % (0.0-7.0); HEMATOCRIT 23.4 % (37.0-47.0); HEMOGLOBIN 7.6 g/dl (12.0-16.0); LYMPHOCYTES # 1.6 10^3/ul (0.8-2.9); LYMPHOCYTES % 16.5 % (15.0-51.0); MEAN CORPUSCULAR HEMOGLOBIN 30.9 pg (29.0-33.0); MEAN CORPUSCULAR HGB CONC 32.2 g/dl (32.0-37.0); MEAN CORPUSCULAR VOLUME 95.9 fl (82.0-101.0); MEAN PLATELET VOLUME 8.4 fl (7.4-10.4); MONOCYTE # 0.4 10^3/ul (0.3-0.9); MONOCYTES % 4.4 % (0.0-11.0); NEUTROPHIL # 7.4 10^3/ul (1.6-7.5); NEUTROPHILS % 77.8 % (39.0-77.0); PLATELET COUNT 237 10^3/UL (140-440); RED BLOOD COUNT 2.44 10^6/ul (4.20-5.40); RED CELL DISTRIBUTION WIDTH 17.3 % (11.5-14.5); UNCORRECTED WBC 9.6 10^3/ul (4.8-10.8); WHITE BLOOD COUNT 9.6 10^3/ul (4.8-10.8)
[2016-09-24 07:03] LABS: CONDITION 1; LH ANALYZER COMMENTS 1
[2016-09-24 07:10] LABS: POTASSIUM 4.9 mmol/L (3.5-5.1)
[2016-09-24 07:13] LABS: CREATININE 2.01 mg/dl (0.44-1.00)
[2016-09-24 07:14] LABS: CALCIUM 8.4 mg/dl (8.4-10.2); MAGNESIUM 2.1 mg/dl (1.7-2.5); PHOSPHORUS 4.6 mg/dl (2.5-4.9)
[2016-09-24] MEDS: HEPARIN 5,000 UNIT/0.5 ML SYG SC SCH ×2 (08:15→21:24)
[2016-09-24] MEDS: BUDESONIDE (NEB) 0.5MG/2ML AMP HHN SCH ×2 (08:39→19:45)
[2016-09-24] MEDS: VORICONAZOLE 200 MG TAB PO SCH ×2 (09:06→21:21)
[2016-09-24] MEDS: LEVETIRACETAM IV 500 MG in DEXTROSE 5% 100 ML IVPB SCH ×2 (09:06→21:22)
[2016-09-24] MEDS: MUPIROCIN 2% 22 GM OINT TOP SCH ×2 (09:07→21:24)
[2016-09-24] MEDS: SILDENAFIL 20 MG TAB PO SCH ×2 (09:07→12:28)
[2016-09-24] MEDS: COLLAGENASE 30 GM TUBE TOP SCH (09:08)
[2016-09-24] MEDS ORDERED: SOD CHLORIDE 0.9% 250 ML IV* ONE (09:12)
[2016-09-24] MEDS: SOD FERRIC GLUC COMPLX 125 MG in SOD CHLORIDE 0.9% 100 ML IVPB SCH (09:30)
--- NOTE | 2016-09-24 10:32 | PN ---
DATE: 09/24/2016 CARDIOLOGY FOLLOWUP PROGRESS NOTE SUBJECTIVE: Discussed with the staff. Rhythm strip was reviewed and discussed with the patient's s on. The patient remains in atrial fibrillation, heart under control. Denies any chest pain or pres sure. Status post tracheostomy, still on the vent. MEDICATIONS: Reviewed as per medication reconciliation, was personally reviewed. PHYSICAL EXAMINATION: VITAL SIGNS: Temperature 98.2, heart rate of 70, blood pressure 105/52, respiration rate of 18, sat urating 93%. HEENT: Normocephalic, atraumatic. Elderly female. Status post tracheostomy, on the vent. Pupils are equal. CARDIOVASCULAR: Irregularly irregular. Systolic murmur and diastolic murmur. PULMONARY: With mild rhonchi. GASTROINTESTINAL: Soft, nontender. EXTREMITIES: Positive edema. NEUROLOGIC: Awake and alert. Responds appropriately. PSYCHIATRIC: Appears to be calm and pleasant. LABORATORY: WBC of 9.6, hemoglobin 7.6, platelets 237. Sodium 132, potassium 4.9, BUN of 60, creat inine 2.01, glucose of 70. ASSESSMENT AND PLAN: 1. Hypoxemia respiratory failure, status post tracheostomy, vent dependent. 2. Atrial fibrillation, chronic. Heart rate under good control. 3. Pleural effusion and pulmonary hypertension. 4. Possibly ASD or PFO 5. Status post hypotension and shock, probably septic, currently improved blood pressure. 6. Renal failure on dialysis. 7. Severe anemia. RECOMMENDATIONS: We will continue with the current cardiac care. Monitor on telemetry. Anticoagul ation is still on hold. Antibiotic is managed as per ID. Vent will be continued. Dictated By: AMANDA PINTO MD AV/ARNOLDO Conf#: [id number] DID#: [id number] CC: RUDDY GEE DO;*EndCC*
--- NOTE | 2016-09-24 12:12 | CONS ---
Date/Time of Note Date/Time of Note DATE: 09/24/16 TIME: 12:11 Consult Date/Type/Reason Admit Date/Time Sep 17, 2016 at 18:49 Initial Consult Date Type of Consultation: ID Subjective no acute changes, tx to tele, awake, no fevers, nad Objective Vital Signs Date Time Temp Pulse Resp B/P Pulse Ox O2 Delivery O2 Flow Rate FiO2 09/24/16 11:28 97.9 80 22 115/56 96 09/24/16 08:40 30 09/23/16 21:00 Mechanical Ventilator Intake and Output 09/23/16 09/23/16 09/24/16 15:00 23:00 07:00 Intake Total 800 ml 815 ml Balance 800 ml 815 ml Results/Medications Result Diagram: 09/24/16 0600 09/24/16 0600 Results 24 hrs Laboratory Tests Test 09/23/16 12:32 09/23/16 18:40 09/23/16 18:47 09/23/16 19:41 Bedside Glucose 118 85 117 Activated Partial Thromboplast Time 35.6 H INR International Normalized Ratio 1.26 Prothrombin Time 15.9 H Prothrombin Time Ratio 1.2 Test 09/24/16 00:40 09/24/16 04:31 09/24/16 06:00 09/24/16 09:09 Bedside Glucose 88 86 81 Anion Gap 17 H Basophils # 0.1 Basophils % 0.6 Blood Morphology Comment Blood Urea Nitrogen 60 H Calcium Level 8.4 Carbon Dioxide Level 30 Chloride Level 90 L Creatinine 2.01 H Eosinophils # 0.1 Eosinophils % 0.7 Glucose Level 70 Hematocrit 23.4 L Hemoglobin 7.6 L Lymphocytes # 1.6 Lymphocytes % 16.5 Magnesium Level 2.1 Mean Corpuscular Hemoglobin 30.9 Mean Corpuscular Hemoglobin Concent 32.2 Mean Corpuscular Volume 95.9 Mean Platelet Volume 8.4 Monocytes # 0.4 Monocytes % 4.4 Neutrophils # 7.4 Neutrophils % 77.8 H Nucleated Red Blood Cells # 0.0 Nucleated Red Blood Cells % 0.0 Phosphorus Level 4.6 Platelet Count 237 Potassium Level 4.9 Red Blood Count 2.44 L Red Cell Distribution Width 17.3 H Sodium Level 132 L White Blood Count 9.6 Medications Current Medications Heparin Sodium (Porcine) 5000 unit 5,000 unit BID SC Last administered on 09/23at 21:13; Admin Dose 5,000 UNIT; Start 09/17/16 at 21:00 Levetiracetam/ Dextrose (Keppra Iv/D5W) 105 ml @ 420 mls/hr Q12 IVPB Last administered on 09/24/16at 09:06; Admin Dose 420 MLS/HR; Start 09/18/16 at 09: 00 Pantoprazole (Protonix Iv) 40 mg DAILY@06 IV Last administered on 09/24/16at 05 :59; Admin Dose 40 MG; Start 09/18/16 at 08:00 Insulin Aspart (Novolog Insulin Pen) NOVOLOG *MILD* ALGORI... Q4 SC Last administered on 09/20/16at 17:43; Admin Dose 1 UNIT; Start 09/18/16 at 09:00 Collagenase (Santyl) 1 applic DAILY TOP Last administered on 09/24/16at 09:08; Admin Dose 1 APPLIC; Start 09/18/16 at 09:00 Acetaminophen (Tylenol Liquid) 650 mg Q4H PRN NGT PAIN AND OR ELEVATED TEMP; Start 09/18/16 at 08:00 Bisacodyl (Dulcolax Supp) 10 mg DAILY PRN WI CONSTIPATION; Start 09/18/16 at 08:00 Mupirocin (Bactroban) Apply to bilateral nares ... BID TOP Last administered on 09/24/16at 09:07; Admin Dose 1 APPLIC; Start 09/18/16 at 09:00 Mirtazapine (Remeron) 7.5 mg HS GTB Last administered on 09/23/16at 20:52; Admin Dose 7.5 MG; Start 09/18/16 at 21:00 Ondansetron HCl (Zofran Inj) 4 mg Q4H PRN IV NAUSEA AND/OR VOMITING; Start 08/24 at 08:00 Morphine Sulfate (morphine) 2 mg Q3H PRN IV PAIN LEVEL 6-10 Last administered on 09/18/16at 22:23; Admin Dose 2 MG; Start 09/18/16 at 08:00 Lorazepam 0.5 mg 0.5 mg Q3H PRN IV ANXIETY; Start 09/18/16 at 08:00 Norepinephrine/ Dextrose (Levophed/D5W) 500 ml @ 1.87 mls/hr TITRATE IV ; Start 09/18/16 at 12:00 Amikacin Sulfate (Amikacin Iv Per Pharmacy) PER PHARMACY DOSING NOTE XX ; Start 09/18/16 at 13:00 Vancomycin HCl (Vanco Iv Per Pharmacy) PER PHARMACY DOSING NOTE XX ; Start 08/24 at 13:00 IV Flush (NS 10 ml) 10 ml PRN PRN IV IV PROTOCOL; Start 09/18/16 at 13:00 Sildenafil Citrate (Revatio) 20 mg TID PO Last administered on 09/24/16at 09:07 ; Admin Dose 20 MG; Start 09/19/16 at 09:00 Miscellaneous Information 1 ea NOTE XX ; Start 09/19/16 at 12:00 Glucose (Glutose) 15 gm Q15M PRN PO DECREASED GLUCOSE; Start 09/19/16 at 12:00 Glucose (Glutose) 22.5 gm Q15M PRN PO DECREASED GLUCOSE; Start 09/19/16 at 12: 00 Dextrose (D50w Syringe) 25 ml Q15M PRN IV DECREASED GLUCOSE; Start 09/19/16 at 12:00 Dextrose (D50w Syringe) 50 ml Q15M PRN IV DECREASED GLUCOSE; Start 09/19/16 at 12:00 Glucagon (Glucagen) 1 mg Q15M PRN IM DECREASED GLUCOSE; Start 09/19/16 at 12: 00 Glucose 15 gm 15 gm Q15M PRN BUCCAL DECREASED GLUCOSE; Start 09/19/16 at 12:00 Ferric Sodium Gluconate Complex/ Sodium Chloride (Ferrlecit/NS) 110 ml @ 110 mls/hr Q24H IVPB Last administered on 09/24/16at 09:30; Admin Dose 110 MLS/HR; Start 09/23/16 at 10:00; Stop 09/27/16 at 10:59 Voriconazole 200 mg 200 mg BID PO Last administered on 09/24/16at 09:06; Admin Dose 200 MG; Start 09/23/16 at 21:00 Vancomycin HCl (Vancocin) 250 ml @ 125 mls/hr Q96H IVPB Last administered on 09/23/16at 13:58; Admin Dose 125 MLS/HR; Start 09/23/16 at 13:00 Assessment/Plan Chief Complaint/Hosp Course MICROBIOLOGY: Endotracheal aspirate growing multidrug resistant Pseudomonas. Blood cultures negative, wound culture of her sacrum growing MRSA. Urine culture growing Kelly glabrata. INDWELLINGS: The patient has endotracheal tube, PEG, Dobhoff, Perm-A-Cath. On the right IJ and left upper extremity PICC line placed on 09/18/2016. ANTIMICROBIALS: 1. Amikacin. 2. Vancomycin. 3. Vfend PHYSICAL EXAMINATION: GENERAL: Fragile, chronically ill-appearing, elderly woman who is lying comfortably in bed. HEENT: Head atraumatic, normocephalic. Sclerae anicteric. Buccal mucosa dry. NECK: Supple. Tracheostomy present. CHEST: Rise symmetrical. Breath sounds diminished to bases. HEART: S1, S2. ABDOMEN: Soft, bowel tones present. EXTREMITIES: Without cyanosis. ASSESSMENT: 1. Resolving sepsis status post shock. 2. Healthcare-associated pneumonia with parapneumonic pleural effusion and sputum culture growing multi-drug resistant Pseudomonas aeruginosa. 3. Methicillin-resistant Staphylococcus aureus infected decubitus. 4. Kelly glabrata urinary tract infection. 5. Methicillin-resistant Staphylococcus aureus nares colonization. 6. End-stage renal disease, hemodialysis dependent. 7. History of cerebrovascular accident. 8. Ascites 9. ALLERGY TO PENICILLIN AND SULFA. PLAN: The patient remains stable. She is on appropriate antimicrobials and getting topical Bactroban to nares as well as Hibiclens baths daily. Pending paracentesis today. DW staff Problems: RAISSA ROA NP Sep 24, 2016 12:12
[2016-09-24] MEDS ORDERED: LIDOCAINE 1% (MPF) 5 ML VIAL ONE (17:34)
--- NOTE | 2016-09-24 17:41 | RADRPT ---
PROCEDURE: Ultrasound guided paracentesis. CLINICAL INDICATION: Ascites and shortness of breath. COMPARISON: No prior studies are available for comparison. TECHNIQUE: The risks, benefits, and alternatives were explained to the patient, including but not limited to bl eeding, infection, pain, visceral or vascular damage, shock, and . The patient understood the risks and the alternatives and wished to proceed with the procedure. Informed written consent was o btained. A procedural time out was performed. The patient's name, date of , and procedure to b e performed were verified. Utilizing ultrasound guidance, optimal location for entry to the peritoneal cavity was ascertained. The overlying skin was prepped and draped in the usual sterile fashion. Approximately 10 ml of 1% Xylocaine was injected locally for pain control. Using ultrasound guidance, an 8 [place] catheter wa s introduced into the peritoneal cavity in the right lower quadrant without difficulty. FINDINGS: Initial images demonstrate ascites. Approximately 4.1 liters of serous fluid was aspirated and sent for laboratory analysis. The patient tolerated the procedure well without complication. IMPRESSION: 1. Successful ultrasound-guided paracentesis. RPTAT: QQ .Joshua Cantu MD, Date Time Electronically viewed and signed by .Joshua Cantu MD, on 09/24/2016 17:41 .R/
[2016-09-24] MEDS: SOD CHLORIDE 0.9% IVPB SCH (18:18)
[2016-09-24] MEDS: AMIKACIN IVPB SCH (18:18)
[2016-09-24] MEDS: EPOETIN 10000 UNITS/1 ML INJ (ESRD) SC SCH (18:18)
--- NOTE | 2016-09-24 19:22 | CONS ---
DATE OF ADMISSION: 09/17/2016 DATE OF CONSULTATION: TYPE OF CONSULTATION: Gastroenterology. REASON FOR CONSULTATION: Placement of G-tube. To Dr. Ruddy Gee. Dr. Gee, thank you for asking me to evaluate the patient who is a pleasant 81-year-old female wi th a history of chronic respiratory failure on vent, CHF, pulmonary hypertension, atrial fibrillatio n, was admitted to [facility] for rehabilitation. The patient was originally at [facility] where she was in septic shock. She was treated appropriately with antibiotic and a pressure support medication. Once she got stabilized, was transferred to [place] for further rehabilitation. However, from [place] after thoracocentesis, the patient became hypotensive and was transferred to [facility] at [facility]. This was done on 09/17/2016. She was on pressure support. The re was no GI bleeding, no chest pain or shortness of breath. The patient at this point is stable, s o GI consult was called in for replacement of G-tube. She had abdominal paracentesis done today. PAST MEDICAL HISTORY: 1. Ascites. 2. Chronic obstructive pulmonary disease. 3. Atrial fibrillation. 4. CVA. 5. Three time failed G-tube because of the leakage around the G-tube site. It is not clear whether the formula was leaking or the ascitic fluid was leaking. As per the had an extensive discu ssion it was the formula or the food which was leaking through the G-tube site, so 3 time G-tube had to be removed. SOCIAL HISTORY: Does not smoke or drink. FAMILY HISTORY: Nothing contributory. ALLERGIES 1. PENICILLIN. 2. SULFA. MEDICATIONS: All reviewed. She is not on anticoagulants at this point. PHYSICAL EXAMINATION: GENERAL: Alert, awake. She is able to understand. She is on vent. ABDOMEN: Benign, previous G-tube scar is seen. It is not distended. EXTREMITIES: No edema. CENTRAL NERVOUS SYSTEM: Grossly within normal limit. She moves all the extremities. LUNGS: The patient is on vent. LABORATORY DATA: WBC is 9.6, hematocrit is 23.4, BUN 60, creatinine is 2.1. Patient is on dialysis . ASSESSMENT: 1. Renal failure on dialysis. 2. Vent dependent respiratory failure. 3. Chronic obstructive pulmonary disease. 4. Atrial fibrillation. 5. Ascites, successful paracentesis done. 6. Dysphagia, on nasogastric tube feeding. 7. Failed gastrostomy tube feeding 3 times in the past secondary to leakage from the gastrostomy tu be site, so the gastrostomy tube had to be removed. 8. Anemia. 9. Status post septic shock. 10. Diabetes mellitus. 11. Decubitus ulcer. 12. Congestive heart failure. 13. Seizure disorder. PLAN: At this point, is to continue present care. I have discussed with the family will talk to the rest of the family and if they are all in agreement, then we will put a G-tube, but make eldon e that the patient has total abdominal paracentesis before the placement of G-tube. Dictated By: ANNABEL JIMENEZ/ARNOLDO Conf#: [id number] DID#: [id number] CC: RUDDY GEE DO;*EndCC*
[2016-09-24 20:48] LABS: FLUID APPEARANCE BLOODY; FLUID TYPE PARACENTHESIS
[2016-09-24 20:49] LABS: FLUID RBC EST 4+; FLUID WBC'S 495 /cmm
[2016-09-24 21:17] LABS: FLUID LYMPHOCYTES 33 %; FLUID MONOCYTES 51 %; FLUID NEUTROPHILS 11 %
[2016-09-24] MEDS: MIRTAZAPINE 15 MG TAB GTB SCH (21:22)
[2016-09-25] VITALS (23 sets, daily range): BP systolic 102–114; BP diastolic 39–55; PULSE 72–84; RESP 17–26
[2016-09-25] MEDS: SILDENAFIL 20 MG TAB PO SCH ×4 (00:10→21:49)
[2016-09-25] MEDS: INSULIN ASPART [NOVOLOG] 3 ML PEN SC SCH ×6 (01:00→20:50)
[2016-09-25] MEDS: LEVALBUTEROL (HFA) 15 GM INHALER INH SCH ×6 (01:36→20:41)
[2016-09-25] MEDS: IPRATROPIUM (HFA) 12.9 GM INHALER INH SCH ×6 (01:36→20:40)
[2016-09-25] MEDS: PANTOPRAZOLE 40 MG INJ IV SCH (05:08)
[2016-09-25] MEDS: BUDESONIDE (NEB) 0.5MG/2ML AMP HHN SCH ×2 (08:07→20:41)
[2016-09-25] MEDS: LEVETIRACETAM IV 500 MG in DEXTROSE 5% 100 ML IVPB SCH ×2 (08:33→21:51)
[2016-09-25] MEDS: VORICONAZOLE 200 MG TAB PO SCH ×2 (08:36→21:49)
[2016-09-25] MEDS: HEPARIN 5,000 UNIT/0.5 ML SYG SC SCH ×2 (08:37→22:00)
[2016-09-25] MEDS: MUPIROCIN 2% 22 GM OINT TOP SCH ×2 (08:42→21:52)
[2016-09-25] MEDS: COLLAGENASE 30 GM TUBE TOP SCH (08:42)
[2016-09-25] MEDS: SOD FERRIC GLUC COMPLX 125 MG in SOD CHLORIDE 0.9% 100 ML IVPB SCH (09:47)
[2016-09-25 09:54] LABS: BASOPHILS % 0.1 % (0.0-2.0); EOSINOPHILS % 0.1 % (0.0-7.0); HEMOGLOBIN 9.7 g/dl (12.0-16.0); LYMPHOCYTES # 0.9 10^3/ul (0.8-2.9); LYMPHOCYTES % 8.5 % (15.0-51.0); MEAN CORPUSCULAR HGB CONC 32.2 g/dl (32.0-37.0); MEAN PLATELET VOLUME 7.9 fl (7.4-10.4); MONOCYTE # 0.5 10^3/ul (0.3-0.9); MONOCYTES % 4.4 % (0.0-11.0); NEUTROPHIL # 9.5 10^3/ul (1.6-7.5); NEUTROPHILS % 86.9 % (39.0-77.0); PLATELET COUNT 241 10^3/UL (140-440); RED BLOOD COUNT 3.22 10^6/ul (4.20-5.40); RED CELL DISTRIBUTION WIDTH 18.5 % (11.5-14.5)
[2016-09-25 09:57] LABS: CONDITION 1; LH ANALYZER COMMENTS 1
--- NOTE | 2016-09-25 10:32 | PN ---
DATE: 09/25/2016 SUBJECTIVE: Yesterday, the patient had paracentesis with 4 liters out. The patient also had hemodi alysis, tolerated well. No other acute events noted. No evidence of any bleeding. OBJECTIVE: VITAL SIGNS: Blood pressure is 110/44, respirations 22, pulse 81, temperature 99.1. HEENT: Head is normocephalic. NECK: Supple. HEART: Regular rate. LUNGS: Show diminished breath sounds at base. ABDOMEN: Soft, nontender to palpation. No rebound or guarding. EXTREMITIES: Negative for clubbing, cyanosis, no edema. DERMATOLOGIC: No rashes. MUSCULOSKELETAL: No joint effusions. NEUROLOGIC: No change in exam. MEDICATIONS: The patient's medications have been reviewed. LABORATORY DATA: Currently pending. ASSESSMENT AND PLAN: 1. Sepsis, status post shock, etiology secondary to pneumonia, decubitus wound, possible SBP. The patient is clinically responding to antibiotic therapy. We will continue. 2. Fungal urinary tract infection. Continue antifungal therapy. 3. Possible SBP. The patient is status post paracentesis. Cell count is suggestive of infection. We will follow up culture. Continue current antibiotic regimen. 4. End-stage renal disease. The patient had hemodialysis yesterday, tolerated well. Plan for dial ysis tomorrow. 5. Pulmonary hypertension. Continue sildenafil. 6. Anemia. Status post blood transfusion. Continue to monitor hemoglobin and hematocrit levels. Continue Epogen. 7. Atrial fibrillation, rate controlled. Continue medical management and follow up with cardiology . Consider anticoagulation therapy. 8. Seizure disorder. Continue Keppra. 9. Stage IV decubitus wound. Continue wound care, low air loss mattress. 10. Diabetes, continue Accu-Cheks and sliding scale. 11. Mineral bone disorder, continue to monitor calcium and phosphorus levels. 12. Dysphagia. The patient has an NG tube in place, consulted GI for possible PEG placement. We w ill continue tube feeding. 13. Chronic encephalopathy. No change. 14. History of cerebrovascular accident. 15. Coronary artery disease. Continue medical management. 16. Abdominal ascites. Etiology is likely from right-sided heart failure. 17. End-stage renal disease. The patient is status post paracentesis. 18. Congestive heart failure in regards to heart failure. Continue medical management and follow u p with cardiology. 19. Gastrointestinal and deep venous thrombosis prophylaxis. Continue proton pump inhibitor and he ellyn. Dictated By: RUDDY BUSTILLOS/ARNOLDO Conf#: [id number] DID#: [id number]
--- NOTE | 2016-09-25 11:37 | PN ---
DATE: 09/25/2016 CARDIOLOGY FOLLOWUP PROGRESS NOTE SUBJECTIVE: The patient remains in atrial fibrillation. Heart rate under good control. The patien t had a paracentesis done yesterday, 4 L out. Discussed with the staff. Rhythm strip was reviewed. Discussed with the patient's son also. The patient denies any chest pain or pressure, but has mil d abdominal discomfort. MEDICATIONS: Reviewed. PHYSICAL EXAMINATION: VITAL SIGNS: Temperature 99.1, heart rate of 81, blood pressure 102/44, respiratory rate of 24, sat urating 94%. HEENT: Normocephalic, atraumatic. Elderly female. Eyes: Pupils are equal. Nose: Status post NG tube in place. CARDIOVASCULAR: Irregularly irregular. PULMONARY: No wheezes. GASTROINTESTINAL: Soft. No rebound. Mildly distended. No guarding. EXTREMITIES: With no significant lower extremity edema. NEUROLOGIC: Awake. Responds appropriately. PSYCHIATRIC: Appears to be calm and pleasant. LABORATORY: Glucose is 116. ASSESSMENT AND PLAN: 1. Hypoxemic respiratory failure, status post tracheostomy, on the vent. 2. Atrial fibrillation, chronic. Currently heart rate is under good control, but not anticoagulate d due to anemia. 3. Pleural effusion and pulmonary hypertension. 4. Possible atrial septal defect or patent foramen ovale. 5. Status post shock, sepsis and hypotension. Currently blood pressure is improved. 6. Renal failure, on dialysis. 7. Dysphagia. Status post NG tube in place. 8. Anemia. RECOMMENDATIONS: The patient has been evaluated by GI. Paracentesis has been done. She is awaitin g PEG placement. We will consider starting anticoagulation after the EGD and PEG is done, if there is no contraindication from a GI standpoint. Vent support will be continued for now. Dialysis, as per renal, will be continued. Dictated By: AMANDA PINTO MD AV/ARNOLDO Conf#: [id number] DID#: [id number] CC: RUDDY GEE DO;*EndCC*
--- NOTE | 2016-09-25 12:54 | CONS ---
Date/Time of Note Date/Time of Note DATE: 09/25/16 TIME: 12:53 Consult Date/Type/Reason Admit Date/Time Sep 17, 2016 at 18:49 Type of Consultation: ID Subjective no acute changes, looks comfortable no fevers, no diarrhea, nad Objective Vital Signs Date Time Temp Pulse Resp B/P Pulse Ox O2 Delivery O2 Flow Rate FiO2 09/25/16 12:28 74 09/25/16 12:07 24 95 30 09/25/16 11:39 97.6 114/55 09/23/16 21:00 Mechanical Ventilator Intake and Output 09/24/16 09/24/16 09/25/16 15:00 23:00 07:00 Intake Total 1115 ml 870 ml Output Total 3400 ml Balance -2285 ml 870 ml Results/Medications Result Diagram: 09/25/16 0939 09/24/16 0600 Results 24 hrs Laboratory Tests Test 09/24/16 17:00 09/24/16 18:05 09/24/16 20:05 09/25/16 01:23 Body Fluid Appearance BLOODY Body Fluid Color RED Body Fluid Lymphocytes (%) 33 Body Fluid Monocytes % 51 Body Fluid Neutrophils % 11 Body Fluid Other Cells (%) 5 Body Fluid RBC 4+ Body Fluid Type PARACENTHESIS Body Fluid Volume 1100.0 Body Fluid WBC 495 Bedside Glucose 73 75 106 Test 09/25/16 05:08 09/25/16 08:44 09/25/16 09:39 09/25/16 12:32 Bedside Glucose 116 135 136 Basophils # 0.0 Basophils % 0.1 Blood Morphology Comment Eosinophils # 0.0 Eosinophils % 0.1 Hematocrit 30.0 #L Hemoglobin 9.7 #L Lymphocytes # 0.9 Lymphocytes % 8.5 L Mean Corpuscular Hemoglobin 30.0 Mean Corpuscular Hemoglobin Concent 32.2 Mean Corpuscular Volume 93.0 Mean Platelet Volume 7.9 Monocytes # 0.5 Monocytes % 4.4 Neutrophils # 9.5 H Neutrophils % 86.9 H Nucleated Red Blood Cells # 0.0 Nucleated Red Blood Cells % 0.0 Platelet Count 241 Red Blood Count 3.22 #L Red Cell Distribution Width 18.5 H White Blood Count 11.0 H Medications Current Medications Heparin Sodium (Porcine) 5000 unit 5,000 unit BID SC Last administered on 09/25at 08:37; Admin Dose 5,000 UNIT; Start 09/17/16 at 21:00 Levetiracetam/ Dextrose (Keppra Iv/D5W) 105 ml @ 420 mls/hr Q12 IVPB Last administered on 09/25/16at 08:33; Admin Dose 420 MLS/HR; Start 09/18/16 at 09: 00 Pantoprazole (Protonix Iv) 40 mg DAILY@06 IV Last administered on 09/25/16at 05 :08; Admin Dose 40 MG; Start 09/18/16 at 08:00 Insulin Aspart (Novolog Insulin Pen) NOVOLOG *MILD* ALGORI... Q4 SC Last administered on 09/20/16at 17:43; Admin Dose 1 UNIT; Start 09/18/16 at 09:00 Collagenase (Santyl) 1 applic DAILY TOP Last administered on 09/25/16at 08:42; Admin Dose 1 APPLIC; Start 09/18/16 at 09:00 Acetaminophen (Tylenol Liquid) 650 mg Q4H PRN NGT PAIN AND OR ELEVATED TEMP; Start 09/18/16 at 08:00 Bisacodyl (Dulcolax Supp) 10 mg DAILY PRN [place] CONSTIPATION; Start 09/18/16 at 08:00 Mupirocin (Bactroban) Apply to bilateral nares ... BID TOP Last administered on 09/25/16at 08:42; Admin Dose 1 APPLIC; Start 09/18/16 at 09:00 Mirtazapine (Remeron) 7.5 mg HS GTB Last administered on 09/24/16at 21:22; Admin Dose 7.5 MG; Start 09/18/16 at 21:00 Ondansetron HCl (Zofran Inj) 4 mg Q4H PRN IV NAUSEA AND/OR VOMITING; Start 08/24 at 08:00 Morphine Sulfate (morphine) 2 mg Q3H PRN IV PAIN LEVEL 6-10 Last administered on 09/18/16at 22:23; Admin Dose 2 MG; Start 09/18/16 at 08:00 Lorazepam 0.5 mg 0.5 mg Q3H PRN IV ANXIETY; Start 09/18/16 at 08:00 Norepinephrine/ Dextrose (Levophed/D5W) 500 ml @ 1.87 mls/hr TITRATE IV ; Start 09/18/16 at 12:00; Status Future Hold Amikacin Sulfate (Amikacin Iv Per Pharmacy) PER PHARMACY DOSING NOTE XX ; Start 09/18/16 at 13:00 Vancomycin HCl (Vanco Iv Per Pharmacy) PER PHARMACY DOSING NOTE XX ; Start 08/24 at 13:00 IV Flush (NS 10 ml) 10 ml PRN PRN IV IV PROTOCOL; Start 09/18/16 at 13:00 Sildenafil Citrate (Revatio) 20 mg TID PO Last administered on 09/25/16at 12:34 ; Admin Dose 20 MG; Start 09/19/16 at 09:00 Miscellaneous Information 1 ea NOTE XX ; Start 09/19/16 at 12:00 Glucose (Glutose) 15 gm Q15M PRN PO DECREASED GLUCOSE; Start 09/19/16 at 12:00 Glucose (Glutose) 22.5 gm Q15M PRN PO DECREASED GLUCOSE; Start 09/19/16 at 12: 00 Dextrose (D50w Syringe) 25 ml Q15M PRN IV DECREASED GLUCOSE; Start 09/19/16 at 12:00 Dextrose (D50w Syringe) 50 ml Q15M PRN IV DECREASED GLUCOSE; Start 09/19/16 at 12:00 Glucagon (Glucagen) 1 mg Q15M PRN IM DECREASED GLUCOSE; Start 09/19/16 at 12: 00 Glucose 15 gm 15 gm Q15M PRN BUCCAL DECREASED GLUCOSE; Start 09/19/16 at 12:00 Ferric Sodium Gluconate Complex/ Sodium Chloride (Ferrlecit/NS) 110 ml @ 110 mls/hr Q24H IVPB Last administered on 09/25/16at 09:47; Admin Dose 110 MLS/HR; Start 09/23/16 at 10:00; Stop 09/27/16 at 10:59 Voriconazole 200 mg 200 mg BID PO Last administered on 09/25/16at 08:36; Admin Dose 200 MG; Start 09/23/16 at 21:00 Vancomycin HCl (Vancocin) 250 ml @ 125 mls/hr Q96H IVPB Last administered on 09/23/16at 13:58; Admin Dose 125 MLS/HR; Start 09/23/16 at 13:00 Assessment/Plan Chief Complaint/Hosp Course MICROBIOLOGY: Endotracheal aspirate growing multidrug resistant Pseudomonas. Blood cultures negative, wound culture of her sacrum growing MRSA. Urine culture growing Kelly glabrata. INDWELLINGS: The patient has endotracheal tube, PEG, Dobhoff, Perm-A-Cath. On the right IJ and left upper extremity PICC line placed on 09/18/2016. ANTIMICROBIALS: 1. Amikacin. 2. Vancomycin. 3. Vfend PHYSICAL EXAMINATION: GENERAL: Fragile, chronically ill-appearing, elderly woman who is lying comfortably in bed. HEENT: Head atraumatic, normocephalic. Sclerae anicteric. Buccal mucosa dry. NECK: Supple. Tracheostomy present. CHEST: Rise symmetrical. Breath sounds diminished to bases. HEART: S1, S2. ABDOMEN: Soft, bowel tones present. EXTREMITIES: Without cyanosis. ASSESSMENT: 1. Resolving sepsis status post shock. 2. Healthcare-associated pneumonia with parapneumonic pleural effusion and sputum culture growing multi-drug resistant Pseudomonas aeruginosa. 3. Methicillin-resistant Staphylococcus aureus infected decubitus. 4. Kelly glabrata urinary tract infection. 5. Methicillin-resistant Staphylococcus aureus nares colonization. 6. End-stage renal disease, hemodialysis dependent. 7. History of cerebrovascular accident. 8. Ascites==> s/p paracentesis 09/24 9. ALLERGY TO PENICILLIN AND SULFA. PLAN: The patient remains stable. She is on appropriate antimicrobials and getting topical Bactroban to nares as well as Hibiclens baths daily. Paracentesis done yesterday, will f/u fluid cx. [facility] staff Problems: RAISSA ROA NP Sep 25, 2016 12:54
--- NOTE | 2016-09-25 18:45 | CONS ---
Date/Time of Note Date/Time of Note DATE: 09/25/16 TIME: 18:44 Assessment/Plan Assessment/Plan Additional Assessment/Plan ASSESSMENT: 1. Renal failure on dialysis. 2. Vent dependent respiratory failure. 3. Chronic obstructive pulmonary disease. 4. Atrial fibrillation. 5. Ascites, successful paracentesis done. 6. Dysphagia, on nasogastric tube feeding. 7. Failed gastrostomy tube feeding 3 times in the past secondary to leakage from the gastrostomy tube site, so the gastrostomy tube had to be removed. 8. Anemia. 9. Status post septic shock. 10. Diabetes mellitus. 11. Decubitus ulcer. 12. Congestive heart failure. 13. Seizure disorder. Plan continue present care PEG when family agrees. Consultation Date/Type/Reason Admit Date/Time Sep 17, 2016 at 18:49 Initial Consult Date Type of Consultation: ID [id number] HR Interval Summary Constitutional: improved, no complaints Exam/Review of Systems Vital Signs Vitals Vital Signs Date Time Temp Pulse Resp B/P Pulse Ox O2 Delivery O2 Flow Rate FiO2 09/25/16 17:47 74 20 97 30 09/25/16 16:06 98.5 107/50 09/23/16 21:00 Mechanical Ventilator Intake and Output 09/24/16 09/24/16 09/25/16 14:59 22:59 06:59 Intake Total 1115 ml 870 ml Output Total 3400 ml Balance -2285 ml 870 ml Exam Constitutional: alert, oriented, well developed Psych: nl mood/affect, no complaints Head: atraumatic, normocephalic Eyes: EOMI, PERRL, nl conjunctiva, nl lids, nl sclera ENMT: nl external ears & nose, nl lips & teeth, nl nasal mucosa & septum Neck: non-tender, supple Respiratory: clear to auscultation, normal air movement Cardiovascular: nl pulses, regular rate and rhythm Gastrointestinal: nl liver, spleen, non-tender, soft Musculoskeletal: nl extremities to inspection, nl gait and stance Extremities: normal pulses Neurological: [employer] II-XII intact, nl mental status, nl speech, nl strength Skin: nl turgor, No rash or lesions Lymph: nl lymph nodes Results Result Diagram: 09/25/16 0939 09/24/16 0600 Results 24 hrs Laboratory Tests Test 09/24/16 20:05 09/25/16 01:23 09/25/16 05:08 09/25/16 08:44 Bedside Glucose 75 106 116 135 Test 09/25/16 09:39 09/25/16 12:32 09/25/16 16:50 Basophils # 0.0 Basophils % 0.1 Blood Morphology Comment Eosinophils # 0.0 Eosinophils % 0.1 Hematocrit 30.0 #L Hemoglobin 9.7 #L Lymphocytes # 0.9 Lymphocytes % 8.5 L Mean Corpuscular Hemoglobin 30.0 Mean Corpuscular Hemoglobin Concent 32.2 Mean Corpuscular Volume 93.0 Mean Platelet Volume 7.9 Monocytes # 0.5 Monocytes % 4.4 Neutrophils # 9.5 H Neutrophils % 86.9 H Nucleated Red Blood Cells # 0.0 Nucleated Red Blood Cells % 0.0 Platelet Count 241 Red Blood Count 3.22 #L Red Cell Distribution Width 18.5 H White Blood Count 11.0 H Bedside Glucose 136 118 Medications Medications Current Medications Heparin Sodium (Porcine) 5000 unit 5,000 unit BID SC Last administered on 09/25at 08:37; Admin Dose 5,000 UNIT; Start 09/17/16 at 21:00 Levetiracetam/ Dextrose (Keppra Iv/D5W) 105 ml @ 420 mls/hr Q12 IVPB Last administered on 09/25/16at 08:33; Admin Dose 420 MLS/HR; Start 09/18/16 at 09: 00 Pantoprazole (Protonix Iv) 40 mg DAILY@06 IV Last administered on 09/25/16at 05 :08; Admin Dose 40 MG; Start 09/18/16 at 08:00 Insulin Aspart (Novolog Insulin Pen) NOVOLOG *MILD* ALGORI... Q4 SC Last administered on 09/20/16at 17:43; Admin Dose 1 UNIT; Start 09/18/16 at 09:00 Collagenase (Santyl) 1 applic DAILY TOP Last administered on 09/25/16at 08:42; Admin Dose 1 APPLIC; Start 09/18/16 at 09:00 Acetaminophen (Tylenol Liquid) 650 mg Q4H PRN NGT PAIN AND OR ELEVATED TEMP; Start 09/18/16 at 08:00 Bisacodyl (Dulcolax Supp) 10 mg DAILY PRN [place] CONSTIPATION; Start 09/18/16 at 08:00 Mupirocin (Bactroban) Apply to bilateral nares ... BID TOP Last administered on 09/25/16at 08:42; Admin Dose 1 APPLIC; Start 09/18/16 at 09:00 Mirtazapine (Remeron) 7.5 mg HS GTB Last administered on 09/24/16at 21:22; Admin Dose 7.5 MG; Start 09/18/16 at 21:00 Ondansetron HCl (Zofran Inj) 4 mg Q4H PRN IV NAUSEA AND/OR VOMITING; Start 08/24 at 08:00 Morphine Sulfate (morphine) 2 mg Q3H PRN IV PAIN LEVEL 6-10 Last administered on 09/18/16at 22:23; Admin Dose 2 MG; Start 09/18/16 at 08:00 Lorazepam (Ativan) 0.5 mg Q3H PRN IV ANXIETY; Start 09/18/16 at 08:00 Amikacin Sulfate (Amikacin Iv Per Pharmacy) PER PHARMACY DOSING NOTE XX ; Start 09/18/16 at 13:00 Vancomycin HCl (Vanco Iv Per Pharmacy) PER PHARMACY DOSING NOTE XX ; Start 08/24 at 13:00 IV Flush (NS 10 ml) 10 ml PRN PRN IV IV PROTOCOL; Start 09/18/16 at 13:00 Sildenafil Citrate (Revatio) 20 mg TID PO Last administered on 09/25/16at 12:34 ; Admin Dose 20 MG; Start 09/19/16 at 09:00 Miscellaneous Information 1 ea NOTE XX ; Start 09/19/16 at 12:00 Glucose (Glutose) 15 gm Q15M PRN PO DECREASED GLUCOSE; Start 09/19/16 at 12:00 Glucose (Glutose) 22.5 gm Q15M PRN PO DECREASED GLUCOSE; Start 09/19/16 at 12: 00 Dextrose (D50w Syringe) 25 ml Q15M PRN IV DECREASED GLUCOSE; Start 09/19/16 at 12:00 Dextrose (D50w Syringe) 50 ml Q15M PRN IV DECREASED GLUCOSE; Start 09/19/16 at 12:00 Glucagon (Glucagen) 1 mg Q15M PRN IM DECREASED GLUCOSE; Start 09/19/16 at 12: 00 Glucose 15 gm 15 gm Q15M PRN BUCCAL DECREASED GLUCOSE; Start 09/19/16 at 12:00 Ferric Sodium Gluconate Complex/ Sodium Chloride (Ferrlecit/NS) 110 ml @ 110 mls/hr Q24H IVPB Last administered on 09/25/16at 09:47; Admin Dose 110 MLS/HR; Start 09/23/16 at 10:00; Stop 09/27/16 at 10:59 Voriconazole 200 mg 200 mg BID PO Last administered on 09/25/16at 08:36; Admin Dose 200 MG; Start 09/23/16 at 21:00 Vancomycin HCl (Vancocin) 250 ml @ 125 mls/hr Q96H IVPB Last administered on 09/23/16at 13:58; Admin Dose 125 MLS/HR; Start 09/23/16 at 13:00 ANNABEL CISSE MD Sep 25, 2016 18:45
[2016-09-25] MEDS: MIRTAZAPINE 15 MG TAB GTB SCH (21:49)
[2016-09-26] VITALS (30 sets, daily range): BP systolic 107–122; BP diastolic 43–68; PULSE 68–90; RESP 13–25
[2016-09-26] MEDS: LEVALBUTEROL (HFA) 15 GM INHALER INH SCH ×6 (01:15→20:49)
[2016-09-26] MEDS: IPRATROPIUM (HFA) 12.9 GM INHALER INH SCH ×6 (01:15→20:49)
[2016-09-26] MEDS: INSULIN ASPART [NOVOLOG] 3 ML PEN SC SCH ×6 (02:01→20:51)
[2016-09-26] MEDS: PANTOPRAZOLE 40 MG INJ IV SCH (05:15)
[2016-09-26 07:28] LABS: BASOPHILS % 0.4 % (0.0-2.0); EOSINOPHILS # 0.1 10^3/ul (0.0-0.5); EOSINOPHILS % 0.6 % (0.0-7.0); HEMATOCRIT 29.3 % (37.0-47.0); HEMOGLOBIN 9.6 g/dl (12.0-16.0); LYMPHOCYTES # 1.2 10^3/ul (0.8-2.9); LYMPHOCYTES % 11.1 % (15.0-51.0); MEAN CORPUSCULAR HEMOGLOBIN 30.9 pg (29.0-33.0); MEAN CORPUSCULAR HGB CONC 32.8 g/dl (32.0-37.0); MEAN CORPUSCULAR VOLUME 94.1 fl (82.0-101.0); MEAN PLATELET VOLUME 8.3 fl (7.4-10.4); MONOCYTE # 0.6 10^3/ul (0.3-0.9); MONOCYTES % 5.5 % (0.0-11.0); NEUTROPHIL # 8.8 10^3/ul (1.6-7.5); NEUTROPHILS % 82.4 % (39.0-77.0); PLATELET COUNT 240 10^3/UL (140-440); RED BLOOD COUNT 3.11 10^6/ul (4.20-5.40); RED CELL DISTRIBUTION WIDTH 18.5 % (11.5-14.5); UNCORRECTED WBC 10.6 10^3/ul (4.8-10.8); WHITE BLOOD COUNT 10.6 10^3/ul (4.8-10.8)
[2016-09-26 07:32] LABS: CONDITION 1; LH ANALYZER COMMENTS 1
[2016-09-26] MEDS: SILDENAFIL 20 MG TAB PO SCH ×3 (09:00→20:52)
--- NOTE | 2016-09-26 09:24 | PN ---
DATE: 09/26/2016 SUBJECTIVE: The patient is stable, no acute events overnight. The patient is scheduled for a hemod ialysis today. OBJECTIVE: VITAL SIGNS: Blood pressure is 132/46, respiration 18, pulse 89, temperature 98.7. HEENT: Head is normocephalic. NECK: Supple. HEART: Regular rate. LUNGS: Show diminished breath sounds at the base. ABDOMEN: Soft, nontender to palpation without rebound or guarding. EXTREMITIES: Negative for clubbing, cyanosis, no edema. DERMATOLOGIC: No rashes. MUSCULOSKELETAL: No joint effusions. NEUROLOGIC: No change in exam. MEDICATIONS: The patient's medications have been reviewed. LABORATORY DATA: Currently pending. ASSESSMENT AND PLAN: 1. Sepsis, status post shock. Etiology secondary to pneumonia, decubitus wound, possible SBP. The patient is currently on antibiotic therapy. Will continue to monitor. 2. Fungal urinary tract infection. Continue Voriconazole. 3. Possible SBP. The patient is status post paracentesis with a cell count suggestive of infection. Follow up culture. Continue antibiotic therapy. 4. End-stage renal disease. The patient is scheduled for hemodialysis today with dialysis for 3 ho urs, 2K bath, potassium 2.5, ultrafiltrate as tolerated. 5. Pulmonary hypertension. Continue . 6. Anemia. Continue to monitor hemoglobin and hematocrit levels. Continue Epogen. 7. Atrial fibrillation, rate controlled. Continue current medical management. 8. Seizure disorder. Continue Keppra. 9. decubitus wound. Continue wound care, low air loss mattress. 10. Diabetes. Continue Accu-Cheks and sliding scale. 11. Mineral bone disorder. Continue to monitor calcium and phosphorous levels. 12. Dysphagia status post nasogastric tube. Continue tube feeding. The patient has been seen by Tirso Shaffer, pending possible PEG tube placement. 13. Chronic encephalopathy. No change. 14. Coronary artery disease. Continue medical management. 15. Abdominal ascites, etiology is likely from right-sided heart failure. The patient is status po st paracentesis. We will continue to monitor. 16. Congestive heart failure. Continue current medical management. Follow up with Cardiology. 17. History of cerebrovascular accident. 18. GI and deep vein thrombosis prophylaxis. Continue proton pump inhibitor and heparin. Dictated By: RUDDY BUSTILLOS/ARNOLDO Conf#: [id number] [facility]#: [id number]
[2016-09-26] MEDS: BUDESONIDE (NEB) 0.5MG/2ML AMP HHN SCH ×2 (09:40→20:45)
[2016-09-26 09:44] LABS: POTASSIUM 4.9 mmol/L (3.5-5.1)
[2016-09-26 09:46] LABS: CREATININE 2.35 mg/dl (0.44-1.00)
[2016-09-26 09:47] LABS: CALCIUM 7.9 mg/dl (8.4-10.2); MAGNESIUM 2.2 mg/dl (1.7-2.5); PHOSPHORUS 4.2 mg/dl (2.5-4.9)
[2016-09-26] MEDS: VORICONAZOLE 200 MG TAB PO SCH ×2 (09:47→20:52)
[2016-09-26] MEDS: LEVETIRACETAM IV 500 MG in DEXTROSE 5% 100 ML IVPB SCH ×2 (09:47→20:53)
[2016-09-26] MEDS: COLLAGENASE 30 GM TUBE TOP SCH (09:48)
[2016-09-26] MEDS: MUPIROCIN 2% 22 GM OINT TOP SCH ×2 (09:48→20:53)
[2016-09-26] MEDS: HEPARIN 5,000 UNIT/0.5 ML SYG SC SCH ×2 (09:56→20:59)
[2016-09-26] MEDS: SOD FERRIC GLUC COMPLX 125 MG in SOD CHLORIDE 0.9% 100 ML IVPB SCH (11:11)
--- NOTE | 2016-09-26 11:41 | CONS ---
Date/Time of Note Date/Time of Note DATE: 09/26/16 TIME: 11:39 Consult Date/Type/Reason Admit Date/Time Sep 17, 2016 at 18:49 Type of Consultation: ID Subjective no acute changes, lying comfortably in bed, no fevers, nad Objective Vital Signs Date Time Temp Pulse Resp B/P Pulse Ox O2 Delivery O2 Flow Rate FiO2 09/26/16 11:21 70 20 95 30 09/26/16 11:17 98.1 107/49 09/23/16 21:00 Mechanical Ventilator Intake and Output 09/25/16 09/25/16 09/26/16 15:00 23:00 07:00 Intake Total 215 ml 1150 ml 900 ml Balance 215 ml 1150 ml 900 ml Results/Medications Result Diagram: 09/26/16 0600 09/26/16 0600 Results 24 hrs Laboratory Tests Test 09/25/16 12:32 09/25/16 16:50 09/25/16 20:47 09/26/16 02:00 Bedside Glucose 136 118 114 122 Test 09/26/16 05:15 09/26/16 06:00 09/26/16 08:28 Bedside Glucose 98 121 Anion Gap 14 Basophils # 0.0 Basophils % 0.4 Blood Morphology Comment Blood Urea Nitrogen 61 H Calcium Level 7.9 L Carbon Dioxide Level 30 Chloride Level 93 L Creatinine 2.35 H Eosinophils # 0.1 Eosinophils % 0.6 Glucose Level 83 Hematocrit 29.3 L Hemoglobin 9.6 L Lymphocytes # 1.2 Lymphocytes % 11.1 L Magnesium Level 2.2 Mean Corpuscular Hemoglobin 30.9 Mean Corpuscular Hemoglobin Concent 32.8 Mean Corpuscular Volume 94.1 Mean Platelet Volume 8.3 Monocytes # 0.6 Monocytes % 5.5 Neutrophils # 8.8 H Neutrophils % 82.4 H Nucleated Red Blood Cells # 0.0 Nucleated Red Blood Cells % 0.0 Phosphorus Level 4.2 Platelet Count 240 Potassium Level 4.9 Red Blood Count 3.11 L Red Cell Distribution Width 18.5 H Sodium Level 132 L White Blood Count 10.6 Medications Current Medications Heparin Sodium (Porcine) 5000 unit 5,000 unit BID SC Last administered on 09/26at 09:56; Admin Dose 5,000 UNIT; Start 09/17/16 at 21:00 Levetiracetam/ Dextrose (Keppra Iv/D5W) 105 ml @ 420 mls/hr Q12 IVPB Last administered on 09/26/16at 09:47; Admin Dose 420 MLS/HR; Start 09/18/16 at 09: 00 Pantoprazole (Protonix Iv) 40 mg DAILY@06 IV Last administered on 09/26/16at 05 :15; Admin Dose 40 MG; Start 09/18/16 at 08:00 Insulin Aspart (Novolog Insulin Pen) NOVOLOG *MILD* ALGORI... Q4 SC Last administered on 09/20/16at 17:43; Admin Dose 1 UNIT; Start 09/18/16 at 09:00 Collagenase (Santyl) 1 applic DAILY TOP Last administered on 09/26/16at 09:48; Admin Dose 1 APPLIC; Start 09/18/16 at 09:00 Acetaminophen (Tylenol Liquid) 650 mg Q4H PRN NGT PAIN AND OR ELEVATED TEMP; Start 09/18/16 at 08:00 Bisacodyl (Dulcolax Supp) 10 mg DAILY PRN [place] CONSTIPATION; Start 09/18/16 at 08:00 Mupirocin (Bactroban) Apply to bilateral nares ... BID TOP Last administered on 09/26/16at 09:48; Admin Dose 1 APPLIC; Start 09/18/16 at 09:00 Mirtazapine (Remeron) 7.5 mg HS GTB Last administered on 09/25/16at 21:49; Admin Dose 7.5 MG; Start 09/18/16 at 21:00 Ondansetron HCl (Zofran Inj) 4 mg Q4H PRN IV NAUSEA AND/OR VOMITING; Start 08/24 at 08:00 Morphine Sulfate (morphine) 2 mg Q3H PRN IV PAIN LEVEL 6-10 Last administered on 09/18/16at 22:23; Admin Dose 2 MG; Start 09/18/16 at 08:00 Lorazepam (Ativan) 0.5 mg Q3H PRN IV ANXIETY; Start 09/18/16 at 08:00 Amikacin Sulfate (Amikacin Iv Per Pharmacy) PER PHARMACY DOSING NOTE XX ; Start 09/18/16 at 13:00 Vancomycin HCl (Vanco Iv Per Pharmacy) PER PHARMACY DOSING NOTE XX ; Start 08/24 at 13:00 IV Flush (NS 10 ml) 10 ml PRN PRN IV IV PROTOCOL; Start 09/18/16 at 13:00 Sildenafil Citrate (Revatio) 20 mg TID PO Last administered on 09/25/16at 21:49 ; Admin Dose 20 MG; Start 09/19/16 at 09:00 Miscellaneous Information 1 ea NOTE XX ; Start 09/19/16 at 12:00 Glucose (Glutose) 15 gm Q15M PRN PO DECREASED GLUCOSE; Start 09/19/16 at 12:00 Glucose (Glutose) 22.5 gm Q15M PRN PO DECREASED GLUCOSE; Start 09/19/16 at 12: 00 Dextrose (D50w Syringe) 25 ml Q15M PRN IV DECREASED GLUCOSE; Start 09/19/16 at 12:00 Dextrose (D50w Syringe) 50 ml Q15M PRN IV DECREASED GLUCOSE; Start 09/19/16 at 12:00 Glucagon (Glucagen) 1 mg Q15M PRN IM DECREASED GLUCOSE; Start 09/19/16 at 12: 00 Glucose 15 gm 15 gm Q15M PRN BUCCAL DECREASED GLUCOSE; Start 09/19/16 at 12:00 Ferric Sodium Gluconate Complex/ Sodium Chloride (Ferrlecit/NS) 110 ml @ 110 mls/hr Q24H IVPB Last administered on 09/26/16at 11:11; Admin Dose 110 MLS/HR; Start 09/23/16 at 10:00; Stop 09/27/16 at 10:59 Voriconazole 200 mg 200 mg BID PO Last administered on 09/26/16at 09:47; Admin Dose 200 MG; Start 09/23/16 at 21:00 Vancomycin HCl (Vancocin) 250 ml @ 125 mls/hr Q96H IVPB Last administered on 09/23/16at 13:58; Admin Dose 125 MLS/HR; Start 09/23/16 at 13:00 Influenza Virus Vaccine (Fluzone) 0.5 ml ONCE ONCE IM* ; Start 09/27/16 at 10: 00; Stop 09/27/16 at 10:01 Assessment/Plan Chief Complaint/Hosp Course MICROBIOLOGY: Endotracheal aspirate growing multidrug resistant Pseudomonas. Blood cultures negative, wound culture of her sacrum growing MRSA. Urine culture growing Kelly glabrata. INDWELLING: The patient has endotracheal tube, PEG, Dobhoff, Perm-A-Cath. On the right IJ and left upper extremity PICC line placed on 09/18/2016. ANTIMICROBIALS: 1. Amikacin. 2. Vancomycin. 3. Vfend PHYSICAL EXAMINATION: GENERAL: Fragile, chronically ill-appearing, elderly woman who is lying comfortably in bed. HEENT: Head atraumatic, normocephalic. Sclerae anicteric. Buccal mucosa dry. NECK: Supple. Tracheostomy present. CHEST: Rise symmetrical. Breath sounds diminished to bases. HEART: S1, S2. ABDOMEN: Soft, bowel tones present. EXTREMITIES: Without cyanosis. ASSESSMENT: 1. Resolving sepsis status post shock. 2. Healthcare-associated pneumonia with parapneumonic pleural effusion and sputum culture growing multi-drug resistant Pseudomonas aeruginosa. 3. Methicillin-resistant Staphylococcus aureus infected decubitus. 4. Kelly glabrata urinary tract infection. 5. Methicillin-resistant Staphylococcus aureus nares colonization. 6. End-stage renal disease, hemodialysis dependent. 7. History of cerebrovascular accident. 8. Ascites==> s/p paracentesis 09/24===> cx negative 9. ALLERGY TO PENICILLIN AND SULFA. PLAN: The patient remains stable. She is on appropriate antimicrobials and getting topical Bactroban to nares as well as Hibiclens baths daily. Ascitic fluid cx negative, pending new PEG per GI rec-s. [facility] staff Problems: RAISSA ROA NP Sep 26, 2016 11:41
[2016-09-26] MEDS: AMIKACIN IVPB SCH (17:16)
[2016-09-26] MEDS: SOD CHLORIDE 0.9% IVPB SCH (17:16)
[2016-09-26] MEDS: EPOETIN 10000 UNITS/1 ML INJ (ESRD) SC SCH (17:18)
[2016-09-26] MEDS: ACETAMINOPHEN 650MG/20.3ML CUP NGT PRN (17:29)
--- NOTE | 2016-09-26 17:45 | CONS ---
Date/Time of Note Date/Time of Note DATE: 09/26/16 TIME: 17:43 Assessment/Plan Assessment/Plan Additional Assessment/Plan Assessment/Plan Assessment/Plan Additional Assessment/Plan ASSESSMENT: 1. Renal failure on dialysis. 2. Vent dependent respiratory failure. 3. Chronic obstructive pulmonary disease. 4. Atrial fibrillation. 5. Ascites, successful paracentesis done. 6. Dysphagia, on nasogastric tube feeding. 7. Failed gastrostomy tube feeding 3 times in the past secondary to leakage from the gastrostomy tube site, so the gastrostomy tube had to be removed. 8. Anemia. 9. Status post septic shock. 10. Diabetes mellitus. 11. Decubitus ulcer. 12. Congestive heart failure. 13. Seizure disorder. Plan continue present care PEG in am paracentesis today Consultation Date/Type/Reason Admit Date/Time Sep 17, 2016 at 18:49 Type of Consultation: ID [id number] HR Interval Summary Free Text/Dictation pt.wants to remove NG tube,very uncomfortable Exam/Review of Systems Vital Signs Vitals Vital Signs Date Time Temp Pulse Resp B/P Pulse Ox O2 Delivery O2 Flow Rate FiO2 09/26/16 16:29 90 09/26/16 15:21 24 93 30 09/26/16 14:50 98.7 112/45 09/23/16 21:00 Mechanical Ventilator Intake and Output 09/25/16 09/25/16 09/26/16 15:00 23:00 07:00 Intake Total 215 ml 1150 ml 900 ml Balance 215 ml 1150 ml 900 ml Exam Constitutional: alert, oriented, well developed Psych: nl mood/affect, no complaints Head: atraumatic, normocephalic Eyes: EOMI, PERRL, nl conjunctiva, nl lids, nl sclera ENMT: nl external ears & nose, nl lips & teeth, nl nasal mucosa & septum Neck: non-tender, supple Respiratory: clear to auscultation, normal air movement Cardiovascular: nl pulses, regular rate and rhythm Gastrointestinal: nl liver, spleen, non-tender, soft Musculoskeletal: nl extremities to inspection, nl gait and stance Extremities: normal pulses 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, nl mental status, nl speech, nl strength Skin: nl turgor, No rash or lesions Lymph: nl lymph nodes Results Result Diagram: 09/26/16 0600 09/26/16 0600 Results 24 hrs Laboratory Tests Test 09/25/16 20:47 09/26/16 02:00 09/26/16 05:15 09/26/16 06:00 Bedside Glucose 114 122 98 Anion Gap 14 Basophils # 0.0 Basophils % 0.4 Blood Morphology Comment Blood Urea Nitrogen 61 H Calcium Level 7.9 L Carbon Dioxide Level 30 Chloride Level 93 L Creatinine 2.35 H Eosinophils # 0.1 Eosinophils % 0.6 Glucose Level 83 Hematocrit 29.3 L Hemoglobin 9.6 L Lymphocytes # 1.2 Lymphocytes % 11.1 L Magnesium Level 2.2 Mean Corpuscular Hemoglobin 30.9 Mean Corpuscular Hemoglobin Concent 32.8 Mean Corpuscular Volume 94.1 Mean Platelet Volume 8.3 Monocytes # 0.6 Monocytes % 5.5 Neutrophils # 8.8 H Neutrophils % 82.4 H Nucleated Red Blood Cells # 0.0 Nucleated Red Blood Cells % 0.0 Phosphorus Level 4.2 Platelet Count 240 Potassium Level 4.9 Red Blood Count 3.11 L Red Cell Distribution Width 18.5 H Sodium Level 132 L White Blood Count 10.6 Test 09/26/16 08:28 09/26/16 14:54 09/26/16 17:13 Bedside Glucose 121 131 123 Medications Medications Current Medications Heparin Sodium (Porcine) 5000 unit 5,000 unit BID SC Last administered on 09/26at 09:56; Admin Dose 5,000 UNIT; Start 09/17/16 at 21:00 Levetiracetam/ Dextrose (Keppra Iv/D5W) 105 ml @ 420 mls/hr Q12 IVPB Last administered on 09/26/16at 09:47; Admin Dose 420 MLS/HR; Start 09/18/16 at 09: 00 Insulin Aspart (Novolog Insulin Pen) NOVOLOG *MILD* ALGORI... Q4 SC Last administered on 09/20/16 17:43; Admin Dose 1 UNIT; Start 09/18/16 at 09:00 Collagenase (Santyl) 1 applic DAILY TOP Last administered on 09/26/16at 09:48; Admin Dose 1 APPLIC; Start 09/18/16 at 09:00 Acetaminophen (Tylenol Liquid) 650 mg Q4H PRN NGT PAIN AND OR ELEVATED TEMP Last administered on 09/26/16at 17:29; Admin Dose 650 MG; Start 09/18/16 at 08: 00 Bisacodyl (Dulcolax Supp) 10 mg DAILY PRN [place] CONSTIPATION; Start 09/18/16 at 08:00 Mupirocin (Bactroban) Apply to bilateral nares ... BID TOP Last administered on 09/26/16at 09:48; Admin Dose 1 APPLIC; Start 09/18/16 at 09:00 Mirtazapine (Remeron) 7.5 mg HS GTB Last administered on 09/25/16at 21:49; Admin Dose 7.5 MG; Start 09/18/16 at 21:00 Ondansetron HCl (Zofran Inj) 4 mg Q4H PRN IV NAUSEA AND/OR VOMITING; Start 08/24 at 08:00 Morphine Sulfate (morphine) 2 mg Q3H PRN IV PAIN LEVEL 6-10 Last administered on 09/18/16at 22:23; Admin Dose 2 MG; Start 09/18/16 at 08:00 Lorazepam (Ativan) 0.5 mg Q3H PRN IV ANXIETY; Start 09/18/16 at 08:00 Amikacin Sulfate (Amikacin Iv Per Pharmacy) PER PHARMACY DOSING NOTE XX ; Start 09/18/16 at 13:00 Vancomycin HCl (Vanco Iv Per Pharmacy) PER PHARMACY DOSING NOTE XX ; Start 08/24 at 13:00 IV Flush (NS 10 ml) 10 ml PRN PRN IV IV PROTOCOL; Start 09/18/16 at 13:00 Sildenafil Citrate (Revatio) 20 mg TID PO Last administered on 09/25/16at 21:49 ; Admin Dose 20 MG; Start 09/19/16 at 09:00 Miscellaneous Information 1 ea NOTE XX ; Start 09/19/16 at 12:00 Glucose (Glutose) 15 gm Q15M PRN PO DECREASED GLUCOSE; Start 09/19/16 at 12:00 Glucose (Glutose) 22.5 gm Q15M PRN PO DECREASED GLUCOSE; Start 09/19/16 at 12: 00 Dextrose (D50w Syringe) 25 ml Q15M PRN IV DECREASED GLUCOSE; Start 09/19/16 at 12:00 Dextrose (D50w Syringe) 50 ml Q15M PRN IV DECREASED GLUCOSE; Start 09/19/16 at 12:00 Glucagon (Glucagen) 1 mg Q15M PRN IM DECREASED GLUCOSE; Start 09/19/16 at 12: 00 Glucose 15 gm 15 gm Q15M PRN BUCCAL DECREASED GLUCOSE; Start 09/19/16 at 12:00 Ferric Sodium Gluconate Complex/ Sodium Chloride (Ferrlecit/NS) 110 ml @ 110 mls/hr Q24H IVPB Last administered on 09/26/16at 11:11; Admin Dose 110 MLS/HR; Start 09/23/16 at 10:00; Stop 09/27/16 at 10:59 Voriconazole 200 mg 200 mg BID PO Last administered on 09/26/16at 09:47; Admin Dose 200 MG; Start 09/23/16 at 21:00 Vancomycin HCl (Vancocin) 250 ml @ 125 mls/hr Q96H IVPB Last administered on 09/23/16at 13:58; Admin Dose 125 MLS/HR; Start 09/23/16 at 13:00 Influenza Virus Vaccine (Fluzone) 0.5 ml ONCE ONCE IM* ; Start 09/27/16 at 10: 00; Stop 09/27/16 at 10:01 Lansoprazole (Prevacid) 30 mg DAILY@06 PO ; Start 09/27/16 at 06:00 ANNABEL CISSE MD Sep 26, 2016 17:45
[2016-09-26] MEDS: MIRTAZAPINE 15 MG TAB GTB SCH (20:52)
[2016-09-26] MEDS: DEXTROSE 5%-0.45% NACL 1,000 ML IV SCH (23:50)
[2016-09-27] VITALS (28 sets, daily range): BP systolic 96–137; BP diastolic 45–76; PULSE 70–100; RESP 12–25
[2016-09-27] MEDS: INSULIN ASPART [NOVOLOG] 3 ML PEN SC SCH ×6 (01:00→21:00)
[2016-09-27] MEDS: IPRATROPIUM (HFA) 12.9 GM INHALER INH SCH ×6 (01:46→20:32)
[2016-09-27] MEDS: LEVALBUTEROL (HFA) 15 GM INHALER INH SCH ×6 (01:46→20:31)
[2016-09-27] MEDS: LANSOPRAZOLE 30 MG CAP PO SCH (06:00)
[2016-09-27] MEDS ORDERED: PANTOPRAZOLE 40 MG INJ IV SCH (06:00)
[2016-09-27 06:57] LABS: POTASSIUM 4.7 mmol/L (3.5-5.1)
[2016-09-27 07:00] LABS: CREATININE 2.12 mg/dl (0.44-1.00)
[2016-09-27 07:01] LABS: CALCIUM 8.3 mg/dl (8.4-10.2); MAGNESIUM 2.1 mg/dl (1.7-2.5); PHOSPHORUS 4.7 mg/dl (2.5-4.9)
[2016-09-27 07:11] LABS: BASOPHILS % 0.3 % (0.0-2.0); EOSINOPHILS # 0.1 10^3/ul (0.0-0.5); EOSINOPHILS % 0.4 % (0.0-7.0); HEMATOCRIT 30.8 % (37.0-47.0); HEMOGLOBIN 10.4 g/dl (12.0-16.0); LYMPHOCYTES # 1.7 10^3/ul (0.8-2.9); LYMPHOCYTES % 11.9 % (15.0-51.0); MEAN CORPUSCULAR HEMOGLOBIN 31.5 pg (29.0-33.0); MEAN CORPUSCULAR HGB CONC 33.7 g/dl (32.0-37.0); MEAN CORPUSCULAR VOLUME 93.6 fl (82.0-101.0); MONOCYTE # 0.8 10^3/ul (0.3-0.9); MONOCYTES % 5.4 % (0.0-11.0); NEUTROPHIL # 11.8 10^3/ul (1.6-7.5); RED BLOOD COUNT 3.29 10^6/ul (4.20-5.40); RED CELL DISTRIBUTION WIDTH 18.6 % (11.5-14.5); UNCORRECTED WBC 14.3 10^3/ul (4.8-10.8); WHITE BLOOD COUNT 14.3 10^3/ul (4.8-10.8)
[2016-09-27 07:19] LABS: CONDITION 1; LH ANALYZER COMMENTS 1
--- NOTE | 2016-09-27 07:57 | PN ---
DATE: 09/26/2016 CARDIOLOGY FOLLOWUP SUBJECTIVE: Discussed with the son, discussed with the staff. ____ The patient remains in atrial f ibrillation, heart rate controlled, no chest pain or pressure. Mild abdominal pain. MEDICATIONS: Reviewed. PHYSICAL EXAMINATION: VITAL SIGNS: Temperature 98.7, heart rate of 88, blood pressure 112/____, respiration 21, saturatin g 95%. HEENT: Normocephalic, atraumatic. Elderly female. NECK: Oropharynx, status post NG tube. CARDIOVASCULAR: Irregularly irregular, systolic murmur. PULMONARY: Anteriorly with no wheezes. Mild rhonchi is heard. GASTROINTESTINAL: Mild distention. No rebound or guarding. EXTREMITIES: With positive lower extremity edema. NEUROLOGIC: Awake and alert. PSYCHIATRIC: Calm and very pleasant. LABORATORY: WBC of 10.6, hemoglobin 9.6, platelets 240. Sodium 132, potassium 4.9, BUN of 61, crea tinine of 2.35, glucose of 83. ASSESSMENT AND PLAN: 1. Hypoxemic respiratory failure, status post tracheostomy, on the vent. 2. Atrial fibrillation. 3. Status post sepsis and shock. Currently blood pressure is improved. 4. Possible atrial septal defect of patent foramen ovale. 5. Renal failure on dialysis. 6. Dysphagia, status post G-tube in place. 7. Anemia. RECOMMENDATIONS: We will continue with the current cardiac care. Awaiting PEG placement. After th e PEG evaluation, endoscopy will consider anticoagulation if there is no sign of active gastrointest inal bleeding. Continue to monitor on telemetry. Respiratory care will be continued. Discussed wi Dr. Reddy. Dictated By: AMANDA PINTO MD AV/ARNOLDO Conf#: [id number] DID#: [id number]
[2016-09-27] MEDS: BUDESONIDE (NEB) 0.5MG/2ML AMP HHN SCH ×2 (08:01→19:14)
[2016-09-27 08:29] LABS: ANISOCYTOSIS 1+
[2016-09-27 08:30] LABS: BURR CELLS FEW; OVALOCYTES OCCASIONAL; POIKILOCYTOSIS 1+
[2016-09-27 08:31] LABS: ACANTHOCYTES OCCASIONAL; POLYCHROMASIA 1+; TARGET CELLS OCCASIONAL
[2016-09-27] MEDS: SILDENAFIL 20 MG TAB PO SCH ×3 (09:00→21:00)
[2016-09-27] MEDS: HEPARIN 5,000 UNIT/0.5 ML SYG SC SCH ×2 (09:00→22:00)
[2016-09-27] MEDS: VORICONAZOLE 200 MG TAB PO SCH ×2 (09:00→22:04)
[2016-09-27] MEDS: LEVETIRACETAM IV 500 MG in DEXTROSE 5% 100 ML IVPB SCH ×2 (09:16→21:57)
[2016-09-27] MEDS: SOD FERRIC GLUC COMPLX 125 MG in SOD CHLORIDE 0.9% 100 ML IVPB SCH (09:16)
[2016-09-27] MEDS: MUPIROCIN 2% 22 GM OINT TOP SCH ×2 (09:17→22:16)
--- NOTE | 2016-09-27 09:48 | PN ---
DATE: 09/27/2016 SUBJECTIVE: The patient had hemodialysis yesterday, tolerated well. The patient is currently pendi ng paracentesis and PEG tube placement. No other acute events noted. No hematemesis or hematochezi a. OBJECTIVE: VITAL SIGNS: Blood pressure is 110/47, respiration 18, pulse 71, temperature 98.8. HEENT: Head is normocephalic. NECK: Supple. HEART: Regular rate. LUNGS: Diminished breath sounds at base. Positive rhonchi. ABDOMEN: Soft, distended. Positive fluid wave. EXTREMITIES: Negative for clubbing, cyanosis. Positive edema. DERMATOLOGIC: No rashes. MUSCULOSKELETAL: No joint effusions. The patient has a decubitus wound stage IV. No change. NEUROLOGIC: No change in exam. MEDICATIONS: Reviewed. LABORATORY DATA: Sodium 135, potassium 4.7, BUN 49, creatinine 2.12. White count 14.3, hemoglobin 10.4, hematocrit 30.8, platelet count is 240. ASSESSMENT AND PLAN: 1. Sepsis, status post shock: Etiology secondary to pneumonia, decubitus wound, possible SBP. Con tinue current antibiotic regimen. Follow up with Infectious Disease. 2. Fungal urinary tract infection: Continue Voriconazole. 3. End-stage renal disease: The patient had hemodialysis yesterday, tolerated procedure well. Anti cipate next dialysis on Thursday. 4. Pulmonary hypertension: Continue sildenafil. 5. Anemia: Continue to monitor hemoglobin and hematocrit levels. Continue Epogen. 6. Atrial fibrillation: Rate controlled. Continue medical management. 7. Seizure disorder. Continue Keppra. 8. Decubitus wound stage IV: Continue wound care, low air loss mattress. 9. Diabetes: Continue Accu-Cheks and sliding scale. 10. Mineral bone disorder: Continue to monitor calcium and phosphorus levels. 11. Dysphagia with NG tube in place: The patient is pending PEG placement. 12. Chronic encephalopathy: No change. 13. Coronary artery disease: Continue medical management. 14. Abdominal ascites/cardiac ascites: The patient is pending paracentesis today. Will continue t o monitor. 15. Congestive heart failure/right sided heart failure: Continue medical management. Follow up [facility]. 16. History of cerebrovascular accident. 17. Deep venous thrombosis prophylaxis: Continue proton pump inhibitor and heparin. Dictated By: RUDDY BUSTILLOS/ARNOLDO Conf#: [id number] [facility]#: [id number]
[2016-09-27] MEDS ORDERED: INFLUENZA VIRUS VACCINE 0.5 ML SYG IM* ONE (10:00)
[2016-09-27 10:49] LABS: MEAN PLATELET VOLUME 8.2 fl (7.4-10.4); PLATELET COUNT 464 10^3/UL (140-440)
[2016-09-27] MEDS: VANCOMYCIN 1 GM in NS 250 ML IVPB SCH (12:37)
--- NOTE | 2016-09-27 13:26 | CONS ---
Date/Time of Note Date/Time of Note DATE: 09/27/16 TIME: 13:24 Consult Date/Type/Reason Admit Date/Time Sep 17, 2016 at 18:49 Type of Consultation: ID Subjective no acute changes, awake, looks comfortable, no fevers Objective Vital Signs Date Time Temp Pulse Resp B/P Pulse Ox O2 Delivery O2 Flow Rate FiO2 09/27/16 12:30 85 09/27/16 11:42 30 09/27/16 11:11 99.2 17 133/46 100 09/27/16 04:00 Mechanical Ventilator Intake and Output 09/26/16 09/26/16 09/27/16 15:00 23:00 07:00 Intake Total 500 ml 1200 ml 400 ml Output Total 1500 ml Balance -1000 ml 1200 ml 400 ml Results/Medications Result Diagram: 09/27/16 0540 09/27/16 0540 Results 24 hrs Laboratory Tests Test 09/26/16 14:54 09/26/16 17:13 09/26/16 20:42 09/27/16 01:05 Bedside Glucose 131 123 93 83 Test 09/27/16 05:40 09/27/16 05:46 09/27/16 08:03 09/27/16 12:34 Acanthocytes OCCASIONAL Anion Gap 18 H Anisocytosis 1+ Basophils # 0.0 Basophils % 0.3 Blood Morphology Comment Blood Urea Nitrogen 49 #H Calcium Level 8.3 L Carbon Dioxide Level 28 Chloride Level 94 L Creatinine 2.12 H Eosinophils # 0.1 Eosinophils % 0.4 Glucose Level 79 Hematocrit 30.8 L Hemoglobin 10.4 L Lymphocytes # 1.7 Lymphocytes % 11.9 L Magnesium Level 2.1 Mean Corpuscular Hemoglobin 31.5 Mean Corpuscular Hemoglobin Concent 33.7 Mean Corpuscular Volume 93.6 Mean Platelet Volume 8.2 Monocytes # 0.8 Monocytes % 5.4 Neutrophils # 11.8 H Neutrophils % 82.0 H Nucleated Red Blood Cells # 0.0 Nucleated Red Blood Cells % 0.0 Ovalocytes OCCASIONAL Phosphorus Level 4.7 Platelet Count 464 #H Polychromasia 1+ Potassium Level 4.7 Red Blood Count 3.29 L Red Cell Distribution Width 18.6 H Sodium Level 135 Target Cells OCCASIONAL White Blood Count 14.3 #H Bedside Glucose 91 93 88 Medications Current Medications Heparin Sodium (Porcine) 5000 unit 5,000 unit BID SC Last administered on 09/26at 20:59; Admin Dose 5,000 UNIT; Start 09/17/16 at 21:00 Levetiracetam/ Dextrose (Keppra Iv/D5W) 105 ml @ 420 mls/hr Q12 IVPB Last administered on 09/27/16at 09:16; Admin Dose 420 MLS/HR; Start 09/18/16 at 09: 00 Insulin Aspart (Novolog Insulin Pen) NOVOLOG *MILD* ALGORI... Q4 SC Last administered on 09/20/16at 17:43; Admin Dose 1 UNIT; Start 09/18/16 at 09:00 Collagenase (Santyl) 1 applic DAILY TOP Last administered on 09/26/16at 09:48; Admin Dose 1 APPLIC; Start 09/18/16 at 09:00 Acetaminophen (Tylenol Liquid) 650 mg Q4H PRN NGT PAIN AND OR ELEVATED TEMP Last administered on 09/26/16at 17:29; Admin Dose 650 MG; Start 09/18/16 at 08: 00 Bisacodyl (Dulcolax Supp) 10 mg DAILY PRN [place] CONSTIPATION; Start 09/18/16 at 08:00 Mupirocin (Bactroban) Apply to bilateral nares ... BID TOP Last administered on 09/27/16at 09:17; Admin Dose 1 APPLIC; Start 09/18/16 at 09:00 Mirtazapine (Remeron) 7.5 mg HS GTB Last administered on 09/26/16at 20:52; Admin Dose 7.5 MG; Start 09/18/16 at 21:00 Ondansetron HCl (Zofran Inj) 4 mg Q4H PRN IV NAUSEA AND/OR VOMITING; Start 08/24 at 08:00 Morphine Sulfate (morphine) 2 mg Q3H PRN IV PAIN LEVEL 6-10 Last administered on 09/18/16at 22:23; Admin Dose 2 MG; Start 09/18/16 at 08:00 Lorazepam (Ativan) 0.5 mg Q3H PRN IV ANXIETY; Start 09/18/16 at 08:00 Amikacin Sulfate (Amikacin Iv Per Pharmacy) PER PHARMACY DOSING NOTE XX ; Start 09/18/16 at 13:00 Vancomycin HCl (Vanco Iv Per Pharmacy) PER PHARMACY DOSING NOTE XX ; Start 08/24 at 13:00 IV Flush (NS 10 ml) 10 ml PRN PRN IV IV PROTOCOL; Start 09/18/16 at 13:00 Sildenafil Citrate (Revatio) 20 mg TID PO Last administered on 09/26/16at 20:52 ; Admin Dose 20 MG; Start 09/19/16 at 09:00 Miscellaneous Information 1 ea NOTE XX ; Start 09/19/16 at 12:00 Glucose (Glutose) 15 gm Q15M PRN PO DECREASED GLUCOSE; Start 09/19/16 at 12:00 Glucose (Glutose) 22.5 gm Q15M PRN PO DECREASED GLUCOSE; Start 09/19/16 at 12: 00 Dextrose (D50w Syringe) 25 ml Q15M PRN IV DECREASED GLUCOSE; Start 09/19/16 at 12:00 Dextrose (D50w Syringe) 50 ml Q15M PRN IV DECREASED GLUCOSE; Start 09/19/16 at 12:00 Glucagon (Glucagen) 1 mg Q15M PRN IM DECREASED GLUCOSE; Start 09/19/16 at 12: 00 Glucose (Glutose) 15 gm Q15M PRN BUCCAL DECREASED GLUCOSE; Start 09/19/16 at 12:00 Voriconazole 200 mg 200 mg BID PO Last administered on 09/26/16at 20:52; Admin Dose 200 MG; Start 09/23/16 at 21:00 Vancomycin HCl (Vancocin) 250 ml @ 125 mls/hr Q96H IVPB Last administered on 09/27/16at 12:37; Admin Dose 125 MLS/HR; Start 09/23/16 at 13:00 Lansoprazole 30 mg 30 mg DAILY@06 PO ; Start 09/27/16 at 06:00 Dextrose/Sodium Chloride (D5-1/2ns) 1,000 ml @ 50 mls/hr Q20H IV Last administered on 09/26/16at 23:50; Admin Dose 50 MLS/HR; Start 09/27/16 at 00:00 Assessment/Plan Chief Complaint/Hosp Course MICROBIOLOGY: Endotracheal aspirate growing multidrug resistant Pseudomonas. Blood cultures negative, wound culture of her sacrum growing MRSA. Urine culture growing Kelly glabrata. INDWELLING: The patient has endotracheal tube, PEG, Dobhoff, Perm-A-Cath. On the right IJ and left upper extremity PICC line placed on 09/18/2016. ANTIMICROBIALS: 1. Amikacin. 2. Vancomycin. 3. Vfend PHYSICAL EXAMINATION: GENERAL: Fragile, chronically ill-appearing, elderly woman who is lying comfortably in bed. HEENT: Head atraumatic, normocephalic. Sclerae anicteric. Buccal mucosa dry. NECK: Supple. Tracheostomy present. CHEST: Rise symmetrical. Breath sounds diminished to bases. HEART: S1, S2. ABDOMEN: Soft, bowel tones present. EXTREMITIES: Without cyanosis. ASSESSMENT: 1. Resolving sepsis status post shock. 2. Healthcare-associated pneumonia with parapneumonic pleural effusion and sputum culture growing multi-drug resistant Pseudomonas aeruginosa. 3. Methicillin-resistant Staphylococcus aureus infected decubitus. 4. Kelly glabrata urinary tract infection. 5. Methicillin-resistant Staphylococcus aureus nares colonization. 6. End-stage renal disease, hemodialysis dependent. 7. History of cerebrovascular accident. 8. Ascites==> s/p paracentesis 09/24===> cx negative 9. ALLERGY TO PENICILLIN AND SULFA. PLAN: The patient remains stable. Continue antibiotics, topical Bactroban to nares, pending PEG DW staff Problems: RAISSA ROA NP Sep 27, 2016 13:25
--- NOTE | 2016-09-27 13:33 | PN ---
DATE: 09/27/2016 CARDIOLOGY FOLLOWUP PROGRESS NOTE SUBJECTIVE: The patient remains in atrial fibrillation, heart rate under good control. No chest pa in or pressure. Still on the vent, status post tracheostomy. Previously with NG tube. Discussed w ith the son. Discussed with the staff. Rhythm strip was reviewed. MEDICATIONS: Reviewed as per medical reconciliation sheet which was personally reviewed. PHYSICAL EXAMINATION: VITAL SIGNS: Temperature 99.2, heart rate of 89, blood pressure 132/46, respiration rate of 17, sat urating 100%. HEENT: Normocephalic, atraumatic. Elderly female. Pupils equal and round. NECK: Status post tracheostomy, on the vent. CARDIOVASCULAR: Irregularly irregular, systolic and diastolic murmur. PULMONARY: Anteriorly with no wheezes heard. Minimal rhonchi at the base. GASTROINTESTINAL: Soft. No rebound or guarding. EXTREMITIES: With trivial edema. NEUROLOGIC: Awake and alert. PSYCHIATRIC: Calm and pleasant. LABORATORY: WBC of 14.3, hemoglobin 10.4, platelets of 464. Sodium 135, potassium 4.7, BUN of 49, creatinine 2.12, glucose 79. ASSESSMENT AND PLAN: 1. Hypoxemic respiratory failure, status post tracheostomy, vent dependent. 2. Atrial fibrillation, currently on heart rate control. 3. Status post septic shock and pneumonia, currently blood pressure has improved now. 4. Renal failure, end-stage, currently on dialysis. 5. Dysphagia. Now NG-tube in place, awaiting PEG placement. 6. Anemia. 7. Cannot rule out ASD or PFO. RECOMMENDATION: We will continue with the current cardiac care. Currently, still not on anticoagul ation. Awaiting EGD and PEG placement. If, after PEG placement, there are no contraindications, wo uld consider addition of anticoagulation, possibly with Eliquis. Continue to monitor on telemetry. Dictated By: AMANDA LARA/ARNOLDO Conf#: [id number] DID#: [id number]
[2016-09-27] MEDS: COLLAGENASE 30 GM TUBE TOP SCH (16:00)
[2016-09-27] MEDS ORDERED: FENTAnyl 50 MCG/ML VIAL ONE (16:32)
[2016-09-27] MEDS ORDERED: MIDAZOLAM 1 MG/ML 2 ML INJ ONE (16:32)
[2016-09-27] MEDS ORDERED: CEFAZOLIN 1 GM/50 ML (PMX) 50 ML IVPB SCH (17:00)
[2016-09-27] MEDS ORDERED: CIPROFLOXACIN 200 MG/D5W IVPB 100 ML IVPB ONE (17:00)
--- NOTE | 2016-09-27 17:26 | RADRPT ---
PROCEDURE: Limited abdominal ultrasound. CLINICAL INDICATION: Ascites. Evaluate for paracentesis. TECHNIQUE: Targeted ultrasound to the 4 quadrants of the abdomen is performed. COMPARISON: 09/24/2016 FINDINGS: There is no significant ascites identified. Paracentesis is not indicated at this time and was not performed. IMPRESSION: No significant ascites. Paracentesis not performed. RPTAT: QQ .Ramos Lion MD, MD Date Time Electronically viewed and signed by .Ramos Lion MD, on 09/27/2016 15:14 .L/
--- NOTE | 2016-09-27 18:04 | CONS ---
Date/Time of Note Date/Time of Note DATE: 09/27/16 TIME: 18:03 Consult Date/Type/Reason Admit Date/Time Sep 17, 2016 at 18:49 Type of Consultation: pulm Subjective s/p PEG. Remains on MV. Objective Vital Signs Date Time Temp Pulse Resp B/P Pulse Ox O2 Delivery O2 Flow Rate FiO2 09/27/16 17:35 94 12 96/45 97 Mechanical Ventilator 09/27/16 17:20 30 09/27/16 14:58 98.9 Intake and Output 09/26/16 09/26/16 09/27/16 15:00 23:00 07:00 Intake Total 500 ml 1200 ml 400 ml Output Total 1500 ml Balance -1000 ml 1200 ml 400 ml HEENT: Neck supple; no JVD; no LAD CVS: RRR, S1 and S2 CHEST: Coarse BS ABD: Soft, NT, + BS EXT: No c/c/ + edema Results/Medications Result Diagram: 09/27/16 0540 09/27/16 0540 Results 24 hrs Laboratory Tests Test 09/26/16 20:42 09/27/16 01:05 09/27/16 05:40 09/27/16 05:46 Bedside Glucose 93 83 91 Acanthocytes OCCASIONAL Anion Gap 18 H Anisocytosis 1+ Basophils # 0.0 Basophils % 0.3 Blood Morphology Comment Blood Urea Nitrogen 49 #H Calcium Level 8.3 L Carbon Dioxide Level 28 Chloride Level 94 L Creatinine 2.12 H Eosinophils # 0.1 Eosinophils % 0.4 Glucose Level 79 Hematocrit 30.8 L Hemoglobin 10.4 L Lymphocytes # 1.7 Lymphocytes % 11.9 L Magnesium Level 2.1 Mean Corpuscular Hemoglobin 31.5 Mean Corpuscular Hemoglobin Concent 33.7 Mean Corpuscular Volume 93.6 Mean Platelet Volume 8.2 Monocytes # 0.8 Monocytes % 5.4 Neutrophils # 11.8 H Neutrophils % 82.0 H Nucleated Red Blood Cells # 0.0 Nucleated Red Blood Cells % 0.0 Ovalocytes OCCASIONAL Phosphorus Level 4.7 Platelet Count 464 #H Polychromasia 1+ Potassium Level 4.7 Red Blood Count 3.29 L Red Cell Distribution Width 18.6 H Sodium Level 135 Target Cells OCCASIONAL White Blood Count 14.3 #H Test 09/27/16 08:03 09/27/16 12:34 09/27/16 17:12 Bedside Glucose 93 88 113 Medications Current Medications Heparin Sodium (Porcine) 5000 unit 5,000 unit BID SC Last administered on 09/26at 20:59; Admin Dose 5,000 UNIT; Start 09/17/16 at 21:00 Levetiracetam/ Dextrose (Keppra Iv/D5W) 105 ml @ 420 mls/hr Q12 IVPB Last administered on 09/27/16at 09:16; Admin Dose 420 MLS/HR; Start 09/18/16 at 09: 00 Insulin Aspart (Novolog Insulin Pen) NOVOLOG *MILD* ALGORI... Q4 SC Last administered on 09/20/16at 17:43; Admin Dose 1 UNIT; Start 09/18/16 at 09:00 Collagenase (Santyl) 1 applic DAILY TOP Last administered on 09/27/16at 16:00; Admin Dose 1 APPLIC; Start 09/18/16 at 09:00 Acetaminophen (Tylenol Liquid) 650 mg Q4H PRN NGT PAIN AND OR ELEVATED TEMP Last administered on 09/26/16at 17:29; Admin Dose 650 MG; Start 09/18/16 at 08: 00 Bisacodyl (Dulcolax Supp) 10 mg DAILY PRN [place] CONSTIPATION; Start 09/18/16 at 08:00 Mupirocin (Bactroban) Apply to bilateral nares ... BID TOP Last administered on 09/27/16at 09:17; Admin Dose 1 APPLIC; Start 09/18/16 at 09:00 Mirtazapine (Remeron) 7.5 mg HS GTB Last administered on 09/26/16at 20:52; Admin Dose 7.5 MG; Start 09/18/16 at 21:00 Ondansetron HCl (Zofran Inj) 4 mg Q4H PRN IV NAUSEA AND/OR VOMITING; Start 08/24 at 08:00 Morphine Sulfate (morphine) 2 mg Q3H PRN IV PAIN LEVEL 6-10 Last administered on 09/18/16at 22:23; Admin Dose 2 MG; Start 09/18/16 at 08:00 Lorazepam (Ativan) 0.5 mg Q3H PRN IV ANXIETY; Start 09/18/16 at 08:00 Amikacin Sulfate (Amikacin Iv Per Pharmacy) PER PHARMACY DOSING NOTE XX ; Start 09/18/16 at 13:00 Vancomycin HCl (Vanco Iv Per Pharmacy) PER PHARMACY DOSING NOTE XX ; Start 08/24 at 13:00 IV Flush (NS 10 ml) 10 ml PRN PRN IV IV PROTOCOL; Start 09/18/16 at 13:00 Sildenafil Citrate (Revatio) 20 mg TID PO Last administered on 09/26/16at 20:52 ; Admin Dose 20 MG; Start 09/19/16 at 09:00 Miscellaneous Information 1 ea NOTE XX ; Start 09/19/16 at 12:00 Glucose (Glutose) 15 gm Q15M PRN PO DECREASED GLUCOSE; Start 09/19/16 at 12:00 Glucose (Glutose) 22.5 gm Q15M PRN PO DECREASED GLUCOSE; Start 09/19/16 at 12: 00 Dextrose (D50w Syringe) 25 ml Q15M PRN IV DECREASED GLUCOSE; Start 09/19/16 at 12:00 Dextrose (D50w Syringe) 50 ml Q15M PRN IV DECREASED GLUCOSE; Start 09/19/16 at 12:00 Glucagon (Glucagen) 1 mg Q15M PRN IM DECREASED GLUCOSE; Start 09/19/16 at 12: 00 Glucose (Glutose) 15 gm Q15M PRN BUCCAL DECREASED GLUCOSE; Start 09/19/16 at 12:00 Voriconazole 200 mg 200 mg BID PO Last administered on 09/26/16at 20:52; Admin Dose 200 MG; Start 09/23/16 at 21:00 Vancomycin HCl (Vancocin) 250 ml @ 125 mls/hr Q96H IVPB Last administered on 09/27/16at 12:37; Admin Dose 125 MLS/HR; Start 09/23/16 at 13:00 Lansoprazole 30 mg 30 mg DAILY@06 PO ; Start 09/27/16 at 06:00 Dextrose/Sodium Chloride (D5-1/2ns) 1,000 ml @ 50 mls/hr Q20H IV Last administered on 09/26/16at 23:50; Admin Dose 50 MLS/HR; Start 09/27/16 at 00:00 Assessment/Plan Additional Assessment/Plan IMPRESSION: 1. Vent dependent respiratory failure 2. Right pleural effusion, query healthcare-associated pneumonia. 3. Pulmonary HTN 4. History of cerebrovascular accident. 5. Encephalopathy. 6. Dysfunctional G-tube with NG tube in place. 7. s/p Septic shock 8 CKD RECS: 1. Vent support with V-AC 2. Decrease FiO2 as tolerated 3. TF's/free H20 WALT JUAREZ MD Sep 27, 2016 18:04
[2016-09-27] MEDS: DEXTROSE 5%-0.45% NACL 1,000 ML IV SCH (21:56)
[2016-09-27] MEDS: MIRTAZAPINE 15 MG TAB GTB SCH (22:05)
[2016-09-28] VITALS (24 sets, daily range): BP systolic 91–119; BP diastolic 39–62; PULSE 80–97; RESP 15–24
[2016-09-28] MEDS: IPRATROPIUM (HFA) 12.9 GM INHALER INH SCH ×6 (00:49→19:47)
[2016-09-28] MEDS: LEVALBUTEROL (HFA) 15 GM INHALER INH SCH ×6 (00:50→19:47)
[2016-09-28] MEDS: INSULIN ASPART [NOVOLOG] 3 ML PEN SC SCH ×6 (01:00→21:00)
[2016-09-28] MEDS: LANSOPRAZOLE 30 MG CAP PO SCH (06:01)
[2016-09-28] MEDS: BUDESONIDE (NEB) 0.5MG/2ML AMP HHN SCH ×2 (07:26→20:45)
[2016-09-28] MEDS: LEVETIRACETAM IV 500 MG in DEXTROSE 5% 100 ML IVPB SCH ×2 (09:14→21:43)
[2016-09-28] MEDS: SILDENAFIL 20 MG TAB PO SCH ×3 (09:15→21:00)
[2016-09-28] MEDS: VORICONAZOLE 200 MG TAB PO SCH ×2 (09:16→21:43)
[2016-09-28] MEDS: HEPARIN 5,000 UNIT/0.5 ML SYG SC SCH ×2 (09:26→21:46)
[2016-09-28] MEDS: MUPIROCIN 2% 22 GM OINT TOP SCH ×2 (09:28→21:46)
--- NOTE | 2016-09-28 11:08 | PN ---
DATE: 09/28/2016 SUBJECTIVE: The patient is stable. Yesterday had a PEG tube placement. Tolerated well without any complications. No other acute events noted. No hemoptysis, hematemesis, or hematochezia. OBJECTIVE: VITAL SIGNS: Blood pressure 120/53, respirations 16, pulse 82, temperature 98.6. INTAKE AND OUTPUT: The patient is 450 in. HEAD: Head is normocephalic. NECK: Supple. HEART: Regular rate. LUNGS: Show diminished breath sounds at the base. ABDOMEN: Soft, nontender to palpation. No rebound or guarding. EXTREMITIES: Negative for clubbing, cyanosis, no edema. DERMATOLOGIC: No rashes. MUSCULOSKELETAL: No joint effusions. NEUROLOGIC: No change in exam. MEDICATIONS: The patient's medications have been reviewed. LABORATORY DATA: Pending. ASSESSMENT AND PLAN: 1. Sepsis, status post shock. Etiology secondary to pneumonia, decubitus wound, possible SBP. The patient currently on antibiotic regimen. Continued. 2. Fungal . Continue Voriconazole: 3. End-stage renal disease. The patient on hemodialysis. Last hemodialysis was Thursday. Anticipat e dialysis tomorrow. 4. Pulmonary hypertension. Continue . 5. Anemia. Hemoglobin level stable. Continue Epogen. 6. Atrial fibrillation, rate controlled. Continue medical management. 7. Seizure disorder. Continue Keppra. 8. Decubitus wound, stage IV. Continue wound care, low air loss mattress. 9. Diabetes. Continue Accu-Cheks and sliding scale. 10. Mineral bone disorder. Monitor calcium and phosphorus levels. 11. Dysphagia, status post PEG tube placement. Continue tube feeding. 12. Chronic encephalopathy. No change. 13. Coronary artery disease. Continue medical management. 14. Abdominal ascites, cardiac ascites. Etiology is due to right-sided heart failure. The patient will give intermittent paracentesis as needed. 15. Congestive heart failure, right-sided heart failure. Continue medical management. 16. History of cerebrovascular accident. 17. Gastrointestinal and deep venous thrombosis prophylaxis. Continue proton pump inhibitor and he ellyn. Dictated By: RUDDY BUSTILLOS/ARNOLDO Conf#: [id number] DID#: [id number]
[2016-09-28] MEDS: morphine 2 MG INJ IV PRN (12:25)
[2016-09-28] MEDS: COLLAGENASE 30 GM TUBE TOP SCH (12:26)
--- NOTE | 2016-09-28 14:37 | CONS ---
Date/Time of Note Date/Time of Note DATE: 09/28/16 TIME: 14:36 Consult Date/Type/Reason Admit Date/Time Sep 17, 2016 at 18:49 Type of Consultation: pulm Subjective No events. Objective Vital Signs Date Time Temp Pulse Resp B/P Pulse Ox O2 Delivery O2 Flow Rate FiO2 09/28/16 13:20 89 21 95 30 09/28/16 11:15 98.8 98/55 09/28/16 04:00 Mechanical Ventilator Intake and Output 09/27/16 09/27/16 09/28/16 15:00 23:00 07:00 Intake Total 465 ml 355 ml 850 ml Output Total 0 ml Balance 465 ml 355 ml 850 ml HEENT: Neck supple; no JVD; no LAD CVS: RRR, S1 and S2 CHEST: Clear ABD: Soft, NT, + BS EXT: No c/c/ + edema Results/Medications Result Diagram: 09/27/16 0540 09/27/16 0540 Results 24 hrs Laboratory Tests Test 09/27/16 17:12 09/27/16 22:02 09/28/16 00:55 09/28/16 05:59 Bedside Glucose 113 85 88 95 Test 09/28/16 08:00 09/28/16 13:04 Bedside Glucose 99 96 Medications Current Medications Heparin Sodium (Porcine) 5000 unit 5,000 unit BID SC Last administered on 09/28at 09:26; Admin Dose 5,000 UNIT; Start 09/17/16 at 21:00 Levetiracetam/ Dextrose (Keppra Iv/D5W) 105 ml @ 420 mls/hr Q12 IVPB Last administered on 09/28/16at 09:14; Admin Dose 420 MLS/HR; Start 09/18/16 at 09: 00 Insulin Aspart (Novolog Insulin Pen) NOVOLOG *MILD* ALGORI... Q4 SC Last administered on 09/20/16at 17:43; Admin Dose 1 UNIT; Start 09/18/16 at 09:00 Collagenase (Santyl) 1 applic DAILY TOP Last administered on 09/28/16at 12:26; Admin Dose 1 APPLIC; Start 09/18/16 at 09:00 Acetaminophen (Tylenol Liquid) 650 mg Q4H PRN NGT PAIN AND OR ELEVATED TEMP Last administered on 09/26/16at 17:29; Admin Dose 650 MG; Start 09/18/16 at 08: 00 Bisacodyl (Dulcolax Supp) 10 mg DAILY PRN [place] CONSTIPATION; Start 09/18/16 at 08:00 Mupirocin (Bactroban) Apply to bilateral nares ... BID TOP Last administered on 09/28/16at 09:28; Admin Dose 1 APPLIC; Start 09/18/16 at 09:00 Mirtazapine (Remeron) 7.5 mg HS GTB Last administered on 09/27/16at 22:05; Admin Dose 7.5 MG; Start 09/18/16 at 21:00 Ondansetron HCl (Zofran Inj) 4 mg Q4H PRN IV NAUSEA AND/OR VOMITING; Start 08/24 at 08:00 Morphine Sulfate (morphine) 2 mg Q3H PRN IV PAIN LEVEL 6-10 Last administered on 09/28/16at 12:25; Admin Dose 2 MG; Start 09/18/16 at 08:00 Lorazepam (Ativan) 0.5 mg Q3H PRN IV ANXIETY; Start 09/18/16 at 08:00 Amikacin Sulfate (Amikacin Iv Per Pharmacy) PER PHARMACY DOSING NOTE XX ; Start 09/18/16 at 13:00 Vancomycin HCl (Vanco Iv Per Pharmacy) PER PHARMACY DOSING NOTE XX ; Start 08/24 at 13:00 IV Flush (NS 10 ml) 10 ml PRN PRN IV IV PROTOCOL Last administered on at 06:01; Admin Dose 10 ML; Start 09/18/16 at 13:00 Sildenafil Citrate (Revatio) 20 mg TID PO Last administered on 09/28/16at 13:16 ; Admin Dose 20 MG; Start 09/19/16 at 09:00 Miscellaneous Information 1 ea NOTE XX ; Start 09/19/16 at 12:00 Glucose (Glutose) 15 gm Q15M PRN PO DECREASED GLUCOSE; Start 09/19/16 at 12:00 Glucose (Glutose) 22.5 gm Q15M PRN PO DECREASED GLUCOSE; Start 09/19/16 at 12: 00 Dextrose (D50w Syringe) 25 ml Q15M PRN IV DECREASED GLUCOSE; Start 09/19/16 at 12:00 Dextrose (D50w Syringe) 50 ml Q15M PRN IV DECREASED GLUCOSE; Start 09/19/16 at 12:00 Glucagon (Glucagen) 1 mg Q15M PRN IM DECREASED GLUCOSE; Start 09/19/16 at 12: 00 Glucose (Glutose) 15 gm Q15M PRN BUCCAL DECREASED GLUCOSE; Start 09/19/16 at 12:00 Voriconazole 200 mg 200 mg BID PO Last administered on 09/28/16at 09:16; Admin Dose 200 MG; Start 09/23/16 at 21:00 Vancomycin HCl (Vancocin) 250 ml @ 125 mls/hr Q96H IVPB Last administered on 09/27/16at 12:37; Admin Dose 125 MLS/HR; Start 09/23/16 at 13:00 Lansoprazole (Prevacid) 30 mg DAILY@06 PO Last administered on 09/28/16at 06:01 ; Admin Dose 30 MG; Start 09/27/16 at 06:00 Assessment/Plan Additional Assessment/Plan IMPRESSION: 1. Vent dependent respiratory failure 2. Right pleural effusion, query healthcare-associated pneumonia. 3. Pulmonary HTN 4. History of cerebrovascular accident. 5. Encephalopathy. 6. Dysfunctional G-tube with NG tube in place. 7. s/p Septic shock 8 CKD RECS: 1. Vent support with V-AC 2. Decrease FiO2 as tolerated 3. TF's/free H20 4. VTE prophylaxis WALT JUAREZ MD Sep 28, 2016 14:37
--- NOTE | 2016-09-28 15:04 | CONS ---
Date/Time of Note Date/Time of Note DATE: 09/28/16 TIME: 15:03 Consult Date/Type/Reason Admit Date/Time Sep 17, 2016 at 18:49 Type of Consultation: ID Subjective no acute changes, lying comfortably in bed, no fevers, nad Objective Vital Signs Date Time Temp Pulse Resp B/P Pulse Ox O2 Delivery O2 Flow Rate FiO2 09/28/16 13:20 89 21 95 30 09/28/16 11:15 98.8 98/55 09/28/16 04:00 Mechanical Ventilator Intake and Output 09/27/16 09/27/16 09/28/16 14:59 22:59 06:59 Intake Total 465 ml 355 ml 400 ml Output Total 0 ml Balance 465 ml 355 ml 400 ml Results/Medications Result Diagram: 09/27/1640 09/27/16 0540 Results 24 hrs Laboratory Tests Test 09/27/16 17:12 09/27/16 22:02 09/28/16 00:55 09/28/16 05:59 Bedside Glucose 113 85 88 95 Test 09/28/16 08:00 09/28/16 13:04 Bedside Glucose 99 96 Medications Current Medications Heparin Sodium (Porcine) 5000 unit 5,000 unit BID SC Last administered on 09/28at 09:26; Admin Dose 5,000 UNIT; Start 09/17/16 at 21:00 Levetiracetam/ Dextrose (Keppra Iv/D5W) 105 ml @ 420 mls/hr Q12 IVPB Last administered on 09/28/16at 09:14; Admin Dose 420 MLS/HR; Start 09/18/16 at 09: 00 Insulin Aspart (Novolog Insulin Pen) NOVOLOG *MILD* ALGORI... Q4 SC Last administered on 09/20/16at 17:43; Admin Dose 1 UNIT; Start 09/18/16 at 09:00 Collagenase (Santyl) 1 applic DAILY TOP Last administered on 09/28/16at 12:26; Admin Dose 1 APPLIC; Start 09/18/16 at 09:00 Acetaminophen (Tylenol Liquid) 650 mg Q4H PRN NGT PAIN AND OR ELEVATED TEMP Last administered on 09/26/16at 17:29; Admin Dose 650 MG; Start 09/18/16 at 08: 00 Bisacodyl (Dulcolax Supp) 10 mg DAILY PRN [place] CONSTIPATION; Start 09/18/16 at 08:00 Mupirocin (Bactroban) Apply to bilateral nares ... BID TOP Last administered on 09/28/16at 09:28; Admin Dose 1 APPLIC; Start 09/18/16 at 09:00 Mirtazapine (Remeron) 7.5 mg HS GTB Last administered on 09/27/16at 22:05; Admin Dose 7.5 MG; Start 09/18/16 at 21:00 Ondansetron HCl (Zofran Inj) 4 mg Q4H PRN IV NAUSEA AND/OR VOMITING; Start 08/24 at 08:00 Morphine Sulfate (morphine) 2 mg Q3H PRN IV PAIN LEVEL 6-10 Last administered on 09/28/16at 12:25; Admin Dose 2 MG; Start 09/18/16 at 08:00 Lorazepam (Ativan) 0.5 mg Q3H PRN IV ANXIETY; Start 09/18/16 at 08:00 Amikacin Sulfate (Amikacin Iv Per Pharmacy) PER PHARMACY DOSING NOTE XX ; Start 09/18/16 at 13:00 Vancomycin HCl (Vanco Iv Per Pharmacy) PER PHARMACY DOSING NOTE XX ; Start 08/24 at 13:00 IV Flush (NS 10 ml) 10 ml PRN PRN IV IV PROTOCOL Last administered on at 06:01; Admin Dose 10 ML; Start 09/18/16 at 13:00 Sildenafil Citrate (Revatio) 20 mg TID PO Last administered on 09/28/16at 13:16 ; Admin Dose 20 MG; Start 09/19/16 at 09:00 Miscellaneous Information 1 ea NOTE XX ; Start 09/19/16 at 12:00 Glucose (Glutose) 15 gm Q15M PRN PO DECREASED GLUCOSE; Start 09/19/16 at 12:00 Glucose (Glutose) 22.5 gm Q15M PRN PO DECREASED GLUCOSE; Start 09/19/16 at 12: 00 Dextrose (D50w Syringe) 25 ml Q15M PRN IV DECREASED GLUCOSE; Start 09/19/16 at 12:00 Dextrose (D50w Syringe) 50 ml Q15M PRN IV DECREASED GLUCOSE; Start 09/19/16 at 12:00 Glucagon (Glucagen) 1 mg Q15M PRN IM DECREASED GLUCOSE; Start 09/19/16 at 12: 00 Glucose (Glutose) 15 gm Q15M PRN BUCCAL DECREASED GLUCOSE; Start 09/19/16 at 12:00 Voriconazole 200 mg 200 mg BID PO Last administered on 09/28/16at 09:16; Admin Dose 200 MG; Start 09/23/16 at 21:00 Vancomycin HCl (Vancocin) 250 ml @ 125 mls/hr Q96H IVPB Last administered on 09/27/16at 12:37; Admin Dose 125 MLS/HR; Start 09/23/16 at 13:00 Lansoprazole (Prevacid) 30 mg DAILY@06 PO Last administered on 09/28/16at 06:01 ; Admin Dose 30 MG; Start 09/27/16 at 06:00 Assessment/Plan Chief Complaint/Hosp Course MICROBIOLOGY: Endotracheal aspirate growing multidrug resistant Pseudomonas. Blood cultures negative, wound culture of her sacrum growing MRSA. Urine culture growing Kelly glabrata. INDWELLING: The patient has endotracheal tube, PEG, Dobhoff, Perm-A-Cath. On the right IJ and left upper extremity PICC line placed on 09/18/2016. ANTIMICROBIALS: 1. Amikacin. 2. Vancomycin. 3. Vfend PHYSICAL EXAMINATION: GENERAL: Fragile, chronically ill-appearing, elderly woman who is lying comfortably in bed. HEENT: Head atraumatic, normocephalic. Sclerae anicteric. Buccal mucosa dry. NECK: Supple. Tracheostomy present. CHEST: Rise symmetrical. Breath sounds diminished to bases. HEART: S1, S2. ABDOMEN: Soft, bowel tones present. EXTREMITIES: Without cyanosis. ASSESSMENT: 1. Resolving sepsis status post shock. 2. Healthcare-associated pneumonia with parapneumonic pleural effusion and sputum culture growing multi-drug resistant Pseudomonas aeruginosa. 3. Methicillin-resistant Staphylococcus aureus infected decubitus. 4. Kelly glabrata urinary tract infection. 5. Methicillin-resistant Staphylococcus aureus nares colonization. 6. End-stage renal disease, hemodialysis dependent. 7. History of cerebrovascular accident. 8. Ascites==> s/p paracentesis 09/24===> cx negative 9. ALLERGY TO PENICILLIN AND SULFA. PLAN: The patient remains unchanged. Completing antibiotics, continue topical Bactroban to nares, pending PEG DW staff Problems: RAISSA ROA NP Sep 28, 2016 15:04
--- NOTE | 2016-09-28 16:18 | GILP ---
DATE OF PROCEDURE: 09/28/2016 PROCEDURE: Percutaneous endoscopy gastrostomy. INDICATION: An 81-year-old female undergoing this procedure for dysphagia. She is being fed throug h the NG tube. The risk of the procedure, related and unrelated complications, anesthetic risks, al ternatives were thoroughly discussed with the patient and informed consent was obtained. DESCRIPTION OF PROCEDURE: The procedure was done bedside. We did ultrasound of the abdomen to make sure there was no ascites. It was completely drained prior to the procedure. After optimal sedati on, scope was passed with much ease into the esophagus, advanced further down into stomach and duode num. There was no evidence of obstruction. By transillumination and digital palpation technique, a ppropriate site was chosen and the anterior abdominal wall site was sterilized with chlorhexidine so lution, 2% Xylocaine instilled by safe method. A small incision was made through that incision, tro car and stylet was passed into the stomach. Stylet was removed from over the tip of the catheter, i nsertion wire was passed and the entire procedure was completed by modified Ponsky technique. The p atient was rescoped. The position of the internal bumper confirmed. External bumper secured and sh e tolerated the procedure very well. I just want to make an note that abdominal wall appeared to be pretty tame compared to normal. IMPRESSION: Successful placement of gastrostomy tube done without any complication. PLAN: 1. To start feeding in a.m. at 20 mL per hour and as tolerated will increase it slowly. 2. Abdominal binder all the time. 3. Do not change the dressing. Dictated By: ANNABEL JIMENEZ/ARNOLDO Conf#: [id number] DID#: [id number] CC: RUDDY GEE DO;*EndCC*
--- NOTE | 2016-09-28 16:44 | PN ---
DATE: 09/28/2016 CARDIOLOGY FOLLOWUP SUBJECTIVE: The patient remains in atrial fibrillation, heart under good control. Status post trac h, has received PEG placement. No chest pain or pressure. MEDICATIONS: Reviewed as per medical reconciliation sheet which was personally reviewed. PHYSICAL EXAMINATION: VITAL SIGNS: Temperature 98.8, heart rate of 87, blood pressure 98/55, respiration rate of 23, satu rating 92%. HEENT: Normocephalic, atraumatic female. Status post trach. CARDIOVASCULAR: Regular rate and rhythm. Systolic murmur. PULMONARY: No wheezes anteriorly. GASTROINTESTINAL: Soft, status post PEG placement. No rebound or guarding. EXTREMITIES: With positive trivial edema. NEUROLOGIC: Awake, responds appropriately. LABORATORY: Abdominal ultrasound done yesterday showed no significant change. not performed. ASSESSMENT AND PLAN: 1. Atrial fibrillation, chronic. 2. Status post septic shock, currently blood pressure improved. 3. End-stage renal disease, hemodialysis. 4. Pulmonary hypertension, possibility of atrial septal defect or patent foramen ovale. 5. Seizure disorder. 6. Decubitus ulcer. 7. Diabetes. 8. Encephalopathy. 9. Fluid overload, congestive heart failure, pulmonary hypertension secondary to above. RECOMMENDATIONS: Continue with the current cardiac care. Will check labs tomorrow. If okay with g astroenterology, will consider addition of anticoagulation given her chronic atrial fibrillation. C ontinue with respiratory care. Vent support. Dictated By: AMANDA PINTO MD AV/ARNOLDO Conf#: [id number] DID#: [id number]
[2016-09-28] MEDS: MIRTAZAPINE 15 MG TAB GTB SCH (21:44)
[2016-09-29] VITALS (35 sets, daily range): BP systolic 86–146; BP diastolic 46–68; PULSE 90–117; RESP 12–22
[2016-09-29] MEDS: IPRATROPIUM (HFA) 12.9 GM INHALER INH SCH ×6 (00:58→21:10)
[2016-09-29] MEDS: LEVALBUTEROL (HFA) 15 GM INHALER INH SCH ×6 (00:59→21:10)
[2016-09-29] MEDS: INSULIN ASPART [NOVOLOG] 3 ML PEN SC SCH ×6 (01:00→21:03)
[2016-09-29] MEDS: LANSOPRAZOLE 30 MG CAP PO SCH (05:10)
[2016-09-29 05:58] LABS: BASOPHIL # 0.1 10^3/ul (0.0-0.1); BASOPHILS % 0.6 % (0.0-2.0); EOSINOPHILS % 0.2 % (0.0-7.0); HEMATOCRIT 32.1 % (37.0-47.0); HEMOGLOBIN 10.4 g/dl (12.0-16.0); LYMPHOCYTES # 1.6 10^3/ul (0.8-2.9); LYMPHOCYTES % 8.6 % (15.0-51.0); MEAN CORPUSCULAR HEMOGLOBIN 30.6 pg (29.0-33.0); MEAN CORPUSCULAR HGB CONC 32.4 g/dl (32.0-37.0); MEAN CORPUSCULAR VOLUME 94.3 fl (82.0-101.0); MEAN PLATELET VOLUME 7.6 fl (7.4-10.4); MONOCYTE # 1.2 10^3/ul (0.3-0.9); MONOCYTES % 6.2 % (0.0-11.0); NEUTROPHIL # 15.8 10^3/ul (1.6-7.5); NEUTROPHILS % 84.4 % (39.0-77.0); PLATELET COUNT 337 10^3/UL (140-440); RED CELL DISTRIBUTION WIDTH 18.3 % (11.5-14.5); UNCORRECTED WBC 18.7 10^3/ul (4.8-10.8); WHITE BLOOD COUNT 18.7 10^3/ul (4.8-10.8)
[2016-09-29 06:02] LABS: ALBUMIN 2.7 g/dl (3.3-4.9)
[2016-09-29 06:03] LABS: POTASSIUM 5.5 mmol/L (3.5-5.1)
[2016-09-29 06:05] LABS: ALBUMIN/GLOBULIN RATIO 0.79; BILIRUBIN,INDIRECT 0.2 mg/dl (0-1.1); BILIRUBIN,TOTAL 0.2 mg/dl (0.2-1.3); CREATININE 3.14 mg/dl (0.44-1.00); TOTAL PROTEIN 6.1 g/dl (6.1-8.1)
[2016-09-29 06:06] LABS: CALCIUM 7.8 mg/dl (8.4-10.2)
[2016-09-29 06:12] LABS: CONDITION 1; LH ANALYZER COMMENTS 1
[2016-09-29] MEDS: LEVETIRACETAM IV 500 MG in DEXTROSE 5% 100 ML IVPB SCH ×2 (09:32→20:43)
[2016-09-29] MEDS: VORICONAZOLE 200 MG TAB PO SCH ×2 (09:33→20:43)
[2016-09-29] MEDS: COLLAGENASE 30 GM TUBE TOP SCH (09:33)
[2016-09-29] MEDS: MUPIROCIN 2% 22 GM OINT TOP SCH ×2 (09:33→20:58)
[2016-09-29] MEDS: SILDENAFIL 20 MG TAB PO SCH ×3 (09:33→21:59)
[2016-09-29] MEDS: BUDESONIDE (NEB) 0.5MG/2ML AMP HHN SCH ×2 (09:50→20:00)
[2016-09-29] MEDS: HEPARIN 5,000 UNIT/0.5 ML SYG SC SCH ×2 (09:51→20:54)
--- NOTE | 2016-09-29 10:21 | PN ---
DATE: 09/29/2016 SUBJECTIVE: The patient is stable, no acute events overnight. No fevers, chills, nausea, vomiting. OBJECTIVE: VITAL SIGNS: Blood pressure is 139/81, respirations 22, pulse 101, temperature 97.9. HEENT: Head is normocephalic. NECK: Supple. HEART: Regular rate. LUNGS: Show diminished breath sounds at the base, otherwise clear. ABDOMEN: Soft, nontender to palpation without rebound or guarding. EXTREMITIES: Negative for clubbing, cyanosis. No edema. DERMATOLOGIC: No rashes. MUSCULOSKELETAL: No joint effusions. NEUROLOGIC: No change in exam. MEDICATIONS: The patient's medications have been reviewed. LABORATORY DATA: Shows a white count of 18,000, hemoglobin 10.4, hematocrit 32.1, platelet count is 337. Sodium 128, potassium 5.5, chloride 92, BUN 65, creatinine 3.14. ASSESSMENT AND PLAN: 1. Sepsis, status post shock. Etiology was secondary to pneumonia, decubitus wound. The patient's white count continues to rise. Currently is on broad spectrum antibiotics. We will continue. Fol low up with infectious disease. 2. Fungal urinary tract infection. The patient is completing a course of antifungal therapy. 3. End-stage renal disease. The patient is scheduled for dialysis today for 3 hours, 2K bath, calc ium 2.5, ultrafiltrate as tolerated. 4. Hyperkalemia secondary to end-stage renal disease. The patient will be dialyzed on 2K potassium bath. 5. Hyponatremia secondary to end-stage renal disease. We will dialyze with 140 sodium bath. Limit free water intake. 6. Pulmonary hypertension. Continue current medical management. 7. Anemia. Continue to monitor hemoglobin and hematocrit levels. Continue Epogen. 8. Atrial fibrillation, rate controlled. Continue medical management. 9. Seizure disorder. Continue Keppra. 10. Decubitus wound stage IV. Continue wound care. 11. Diabetes. Continue Accu-Cheks and sliding scale. 12. Dysphagia. Status post PEG tube, tube feed. 13. Chronic encephalopathy. No change. 14. Coronary artery disease. Continue medical management. 15. CHF, right-sided heart failure. Continue current treatment plan. 16. History of cerebrovascular accident. 17. GI and deep venous thrombosis prophylaxis. Continue PPI and heparin. Dictated By: RUDDY BUSTILLOS/ARNOLDO Conf#: [id number] [facility]#: [id number]
[2016-09-29 10:42] LABS: MAGNESIUM 2.2 mg/dl (1.7-2.5); PHOSPHORUS 6.2 mg/dl (2.5-4.9)
[2016-09-29] MEDS: METOCLOPRAMIDE 10 MG INJ IV SCH ×2 (12:00→17:27)
[2016-09-29] MEDS: ACETAMINOPHEN 650MG/20.3ML CUP NGT PRN (12:07)
--- NOTE | 2016-09-29 13:22 | CONS ---
Date/Time of Note Date/Time of Note DATE: 09/29/16 TIME: 13:21 Consult Date/Type/Reason Admit Date/Time Sep 17, 2016 at 18:49 Type of Consultation: ID Subjective s/p PEG, awake, lying comfortably in bed, no fevers, nad Objective Vital Signs Date Time Temp Pulse Resp B/P Pulse Ox O2 Delivery O2 Flow Rate FiO2 09/29/16 13:01 91 12 96 30 09/29/16 11:16 99.3 146/58 09/28/16 20:00 Mechanical Ventilator Intake and Output 09/28/16 09/28/16 09/29/16 15:00 23:00 07:00 Intake Total 625 ml 1000 ml Output Total 0 ml Balance 625 ml 1000 ml Results/Medications Result Diagram: 09/29/16 0525 09/29/16 0515 Results 24 hrs Laboratory Tests Test 09/28/16 16:47 09/28/16 21:41 09/29/16 01:06 09/29/16 05:14 Bedside Glucose 102 86 109 114 Test 09/29/16 05:15 09/29/16 05:25 09/29/16 07:29 09/29/16 11:19 Alanine Aminotransferase (ALT/SGPT) 20 Albumin 2.7 L Albumin/Globulin Ratio 0.79 Alkaline Phosphatase 153 H Anion Gap 15 Aspartate Amino Transf (AST/SGOT) 22 Blood Urea Nitrogen 65 H Calcium Level 7.8 L Carbon Dioxide Level 27 Chloride Level 92 L Creatinine 3.14 #H Direct Bilirubin 0.00 Globulin 3.40 H Glucose Level 102 Indirect Bilirubin 0.2 Potassium Level 5.5 H Sodium Level 128 L Total Bilirubin 0.2 Total Protein 6.1 Basophils # 0.1 Basophils % 0.6 Blood Morphology Comment Eosinophils # 0.0 Eosinophils % 0.2 Hematocrit 32.1 L Hemoglobin 10.4 L Lymphocytes # 1.6 Lymphocytes % 8.6 L Magnesium Level 2.2 Mean Corpuscular Hemoglobin 30.6 Mean Corpuscular Hemoglobin Concent 32.4 Mean Corpuscular Volume 94.3 Mean Platelet Volume 7.6 Monocytes # 1.2 H Monocytes % 6.2 Neutrophils # 15.8 H Neutrophils % 84.4 H Nucleated Red Blood Cells # 0.0 Nucleated Red Blood Cells % 0.0 Phosphorus Level 6.2 H Platelet Count 337 # Red Blood Count 3.40 L Red Cell Distribution Width 18.3 H White Blood Count 18.7 #H Bedside Glucose 114 115 Medications Current Medications Heparin Sodium (Porcine) 5000 unit 5,000 unit BID SC Last administered on 09/29at 09:51; Admin Dose 5,000 UNIT; Start 09/17/16 at 21:00 Levetiracetam/ Dextrose (Keppra Iv/D5W) 105 ml @ 420 mls/hr Q12 IVPB Last administered on 09/29/16at 09:32; Admin Dose 420 MLS/HR; Start 09/18/16 at 09: 00 Insulin Aspart (Novolog Insulin Pen) NOVOLOG *MILD* ALGORI... Q4 SC Last administered on 09/20/16 17:43; Admin Dose 1 UNIT; Start 09/18/16 at 09:00 Collagenase (Santyl) 1 applic DAILY TOP Last administered on 09/29/16 09:33; Admin Dose 1 APPLIC; Start 09/18/16 at 09:00 Acetaminophen (Tylenol Liquid) 650 mg Q4H PRN NGT PAIN AND OR ELEVATED TEMP Last administered on 09/29/16at 12:07; Admin Dose 650 MG; Start 09/18/16 at 08: 00 Bisacodyl (Dulcolax Supp) 10 mg DAILY PRN [place] CONSTIPATION; Start 09/18/16 at 08:00 Mupirocin (Bactroban) Apply to bilateral nares ... BID TOP Last administered on 09/29/16at 09:33; Admin Dose 1 APPLIC; Start 09/18/16 at 09:00 Mirtazapine (Remeron) 7.5 mg HS GTB Last administered on 09/28/16at 21:44; Admin Dose 7.5 MG; Start 09/18/16 at 21:00 Ondansetron HCl (Zofran Inj) 4 mg Q4H PRN IV NAUSEA AND/OR VOMITING; Start 08/24 at 08:00 Morphine Sulfate (morphine) 2 mg Q3H PRN IV PAIN LEVEL 6-10 Last administered on 09/28/16at 12:25; Admin Dose 2 MG; Start 09/18/16 at 08:00 Lorazepam (Ativan) 0.5 mg Q3H PRN IV ANXIETY; Start 09/18/16 at 08:00 Amikacin Sulfate (Amikacin Iv Per Pharmacy) PER PHARMACY DOSING NOTE XX ; Start 09/18/16 at 13:00 Vancomycin HCl (Vanco Iv Per Pharmacy) PER PHARMACY DOSING NOTE XX ; Start 08/24 at 13:00 IV Flush (NS 10 ml) 10 ml PRN PRN IV IV PROTOCOL Last administered on at 06:01; Admin Dose 10 ML; Start 09/18/16 at 13:00 Sildenafil Citrate (Revatio) 20 mg TID PO Last administered on 09/29/16at 09:33 ; Admin Dose 20 MG; Start 09/19/16 at 09:00 Miscellaneous Information 1 ea NOTE XX ; Start 09/19/16 at 12:00 Glucose (Glutose) 15 gm Q15M PRN PO DECREASED GLUCOSE; Start 09/19/16 at 12:00 Glucose (Glutose) 22.5 gm Q15M PRN PO DECREASED GLUCOSE; Start 09/19/16 at 12: 00 Dextrose (D50w Syringe) 25 ml Q15M PRN IV DECREASED GLUCOSE; Start 09/19/16 at 12:00 Dextrose (D50w Syringe) 50 ml Q15M PRN IV DECREASED GLUCOSE; Start 09/19/16 at 12:00 Glucagon (Glucagen) 1 mg Q15M PRN IM DECREASED GLUCOSE; Start 09/19/16 at 12: 00 Glucose (Glutose) 15 gm Q15M PRN BUCCAL DECREASED GLUCOSE; Start 09/19/16 at 12:00 Voriconazole 200 mg 200 mg BID PO Last administered on 09/29/16at 09:33; Admin Dose 200 MG; Start 09/23/16 at 21:00 Vancomycin HCl (Vancocin) 250 ml @ 125 mls/hr Q96H IVPB Last administered on 09/27/16at 12:37; Admin Dose 125 MLS/HR; Start 09/23/16 at 13:00 Lansoprazole (Prevacid) 30 mg DAILY@06 PO Last administered on 09/29/16at 05:10 ; Admin Dose 30 MG; Start 09/27/16 at 06:00 Metoclopramide HCl (Reglan) 10 mg Q6 IV ; Start 09/29/16 at 12:00 Assessment/Plan Chief Complaint/Hosp Course MICROBIOLOGY: Endotracheal aspirate growing multidrug resistant Pseudomonas. Blood cultures negative, wound culture of her sacrum growing MRSA. Urine culture growing Kelly glabrata. INDWELLING: The patient has endotracheal tube, PEG, Dobhoff, Perm-A-Cath. On the right IJ and left upper extremity PICC line placed on 09/18/2016. ANTIMICROBIALS: 1. Amikacin. 2. Vancomycin. 3. Vfend PHYSICAL EXAMINATION: GENERAL: Fragile, chronically ill-appearing, elderly woman who is lying comfortably in bed. HEENT: Head atraumatic, normocephalic. Sclerae anicteric. Buccal mucosa dry. NECK: Supple. Tracheostomy present. CHEST: Rise symmetrical. Breath sounds diminished to bases. HEART: S1, S2. ABDOMEN: Soft, bowel tones present. EXTREMITIES: Without cyanosis. ASSESSMENT: 1. Resolving sepsis status post shock. 2. Healthcare-associated pneumonia with parapneumonic pleural effusion and sputum culture growing multi-drug resistant Pseudomonas aeruginosa. 3. Methicillin-resistant Staphylococcus aureus infected decubitus. 4. Kelly glabrata urinary tract infection. 5. Methicillin-resistant Staphylococcus aureus nares colonization. 6. End-stage renal disease, hemodialysis dependent. 7. History of cerebrovascular accident. 8. Ascites==> s/p paracentesis 09/24===> cx negative 9. ALLERGY TO PENICILLIN AND SULFA. PLAN: The patient remains unchanged. S/p PEG this am, continue present care, complete antibiotics, continue topical Bactroban to nares and local wound care DW staff Problems: RAISSA ROA NP Sep 29, 2016 13:22
[2016-09-29] MEDS: AMIKACIN IVPB SCH (17:34)
[2016-09-29] MEDS: SOD CHLORIDE 0.9% IVPB SCH (17:34)
[2016-09-29] MEDS: EPOETIN 10000 UNITS/1 ML INJ (ESRD) SC SCH (17:35)
--- NOTE | 2016-09-29 17:35 | CONS ---
Date/Time of Note Date/Time of Note DATE: 09/29/16 TIME: 17:30 Assessment/Plan Assessment/Plan Additional Assessment/Plan Additional Assessment/Plan ASSESSMENT: 1. Renal failure on dialysis. 2. Vent dependent respiratory failure. 3. Chronic obstructive pulmonary disease. 4. Atrial fibrillation. 5. Ascites, successful paracentesis done. 6. Dysphagia, on nasogastric tube feeding. 7. Failed gastrostomy tube feeding 3 times in the past secondary to leakage from the gastrostomy tube site, so the gastrostomy tube had to be removed. 8. Anemia. 9. Status post septic shock. 10. Diabetes mellitus. 11. Decubitus ulcer. 12. Congestive heart failure. 13. Seizure disorder. 14. pneumonia,s/p sepsis 15.MRSA carrier Plan continue antibiotics monitor WBC Reglan for gastroparesis Consultation Date/Type/Reason Admit Date/Time Sep 17, 2016 at 18:49 Type of Consultation: ID [id number] HR Interval Summary Constitutional: improved, no complaints Exam/Review of Systems Vital Signs Vitals Vital Signs Date Time Temp Pulse Resp B/P Pulse Ox O2 Delivery O2 Flow Rate FiO2 09/29/16 17:15 98 18 96 30 09/29/16 15:20 98.9 98/54 09/28/16 20:00 Mechanical Ventilator Intake and Output 09/28/16 09/28/16 09/29/16 15:00 23:00 07:00 Intake Total 625 ml 1000 ml Output Total 0 ml Balance 625 ml 1000 ml Exam Gastrointestinal: other (g tube site clean) Results Result Diagram: 09/29/16 0525 09/29/16 0515 Results 24 hrs Laboratory Tests Test 09/28/16 21:41 09/29/16 01:06 09/29/16 05:14 09/29/16 05:15 Bedside Glucose 86 109 114 Alanine Aminotransferase (ALT/SGPT) 20 Albumin 2.7 L Albumin/Globulin Ratio 0.79 Alkaline Phosphatase 153 H Anion Gap 15 Aspartate Amino Transf (AST/SGOT) 22 Blood Urea Nitrogen 65 H Calcium Level 7.8 L Carbon Dioxide Level 27 Chloride Level 92 L Creatinine 3.14 #H Direct Bilirubin 0.00 Globulin 3.40 H Glucose Level 102 Indirect Bilirubin 0.2 Potassium Level 5.5 H Sodium Level 128 L Total Bilirubin 0.2 Total Protein 6.1 Test 09/29/16 05:25 09/29/16 07:29 09/29/16 11:19 09/29/16 16:53 Basophils # 0.1 Basophils % 0.6 Blood Morphology Comment Eosinophils # 0.0 Eosinophils % 0.2 Hematocrit 32.1 L Hemoglobin 10.4 L Lymphocytes # 1.6 Lymphocytes % 8.6 L Magnesium Level 2.2 Mean Corpuscular Hemoglobin 30.6 Mean Corpuscular Hemoglobin Concent 32.4 Mean Corpuscular Volume 94.3 Mean Platelet Volume 7.6 Monocytes # 1.2 H Monocytes % 6.2 Neutrophils # 15.8 H Neutrophils % 84.4 H Nucleated Red Blood Cells # 0.0 Nucleated Red Blood Cells % 0.0 Phosphorus Level 6.2 H Platelet Count 337 # Red Blood Count 3.40 L Red Cell Distribution Width 18.3 H White Blood Count 18.7 #H Bedside Glucose 114 115 121 Medications Medications Current Medications Heparin Sodium (Porcine) 5000 unit 5,000 unit BID SC Last administered on 09/29 09:51; Admin Dose 5,000 UNIT; Start 09/17/16 at 21:00 Levetiracetam/ Dextrose (Keppra Iv/D5W) 105 ml @ 420 mls/hr Q12 IVPB Last administered on 09/29/16 09:32; Admin Dose 420 MLS/HR; Start 09/18/16 at 09: 00 Insulin Aspart (Novolog Insulin Pen) NOVOLOG *MILD* ALGORI... Q4 SC Last administered on 09/20/16 17:43; Admin Dose 1 UNIT; Start 09/18/16 at 09:00 Collagenase (Santyl) 1 applic DAILY TOP Last administered on 09/29/16at 09:33; Admin Dose 1 APPLIC; Start 09/18/16 at 09:00 Acetaminophen (Tylenol Liquid) 650 mg Q4H PRN NGT PAIN AND OR ELEVATED TEMP Last administered on 09/29/16at 12:07; Admin Dose 650 MG; Start 09/18/16 at 08: 00 Bisacodyl (Dulcolax Supp) 10 mg DAILY PRN OR CONSTIPATION; Start 09/18/16 at 08:00 Mupirocin (Bactroban) Apply to bilateral nares ... BID TOP Last administered on 09/29/16 09:33; Admin Dose 1 APPLIC; Start 09/18/16 at 09:00 Mirtazapine (Remeron) 7.5 mg HS GTB Last administered on 09/28/16at 21:44; Admin Dose 7.5 MG; Start 09/18/16 at 21:00 Ondansetron HCl (Zofran Inj) 4 mg Q4H PRN IV NAUSEA AND/OR VOMITING; Start 08/24 at 08:00 Morphine Sulfate (morphine) 2 mg Q3H PRN IV PAIN LEVEL 6-10 Last administered on 09/28/16at 12:25; Admin Dose 2 MG; Start 09/18/16 at 08:00 Lorazepam (Ativan) 0.5 mg Q3H PRN IV ANXIETY; Start 09/18/16 at 08:00 Amikacin Sulfate (Amikacin Iv Per Pharmacy) PER PHARMACY DOSING NOTE XX ; Start 09/18/16 at 13:00 Vancomycin HCl (Vanco Iv Per Pharmacy) PER PHARMACY DOSING NOTE XX ; Start 08/24 at 13:00 IV Flush (NS 10 ml) 10 ml PRN PRN IV IV PROTOCOL Last administered on at 06:01; Admin Dose 10 ML; Start 09/18/16 at 13:00 Sildenafil Citrate (Revatio) 20 mg TID PO Last administered on 09/29/16at 09:33 ; Admin Dose 20 MG; Start 09/19/16 at 09:00 Miscellaneous Information 1 ea NOTE XX ; Start 09/19/16 at 12:00 Glucose (Glutose) 15 gm Q15M PRN PO DECREASED GLUCOSE; Start 09/19/16 at 12:00 Glucose (Glutose) 22.5 gm Q15M PRN PO DECREASED GLUCOSE; Start 09/19/16 at 12: 00 Dextrose (D50w Syringe) 25 ml Q15M PRN IV DECREASED GLUCOSE; Start 09/19/16 at 12:00 Dextrose (D50w Syringe) 50 ml Q15M PRN IV DECREASED GLUCOSE; Start 09/19/16 at 12:00 Glucagon (Glucagen) 1 mg Q15M PRN IM DECREASED GLUCOSE; Start 09/19/16 at 12: 00 Glucose (Glutose) 15 gm Q15M PRN BUCCAL DECREASED GLUCOSE; Start 09/19/16 at 12:00 Voriconazole 200 mg 200 mg BID PO Last administered on 09/29/16at 09:33; Admin Dose 200 MG; Start 09/23/16 at 21:00 Vancomycin HCl (Vancocin) 250 ml @ 125 mls/hr Q96H IVPB Last administered on 09/27/16at 12:37; Admin Dose 125 MLS/HR; Start 09/23/16 at 13:00 Lansoprazole (Prevacid) 30 mg DAILY@06 PO Last administered on 09/29/16at 05:10 ; Admin Dose 30 MG; Start 09/27/16 at 06:00 Metoclopramide HCl (Reglan) 10 mg Q6 IV ; Start 09/29/16 at 12:00 ANNABEL CISSE MD Sep 29, 2016 17:35
--- NOTE | 2016-09-29 18:18 | PN ---
DATE: 09/29/2016 REASON FOR FOLLOWUP: Respiratory failure. SUBJECTIVE: The patient is stable this morning remains without respiratory distress. PHYSICAL EXAMINATION: VITAL SIGNS: Temperature 98, blood pressure 98/54, O2 saturation 96% on 30% FIO2. NECK: Supple. No JVD or lymphadenopathy. CARDIAC: S1, S2, no added sounds or murmurs. CHEST: Diminished air entry bilaterally. ABDOMEN: Soft, nontender. No guarding or rebound. EXTREMITIES: No cyanosis, clubbing or edema. NEUROLOGIC: Generalized weakness. LABORATORY DATA: White count 18.7, hemoglobin 10.4, platelets 337. BUN 65, creatinine 3.14. IMPRESSION AND PLAN: 1. Vent dependent respiratory failure. 2. Pleural effusion, possible healthcare-associated pneumonia. 3. Pulmonary hypertension. 4. History of cerebrovascular accident. 5. History of encephalopathy. 6. Dysfunctional G-tube. The patient to continue with current level of care. Continue gastrointes tinal recommendations, supplemental O2, DVT, GI prophylaxis. Discharge planning okay from pulmonar y standpoint. Dictated By: JULIA SNYDER/ARNOLDO Conf#: [id number] DID#: [id number]
[2016-09-29] MEDS: MIRTAZAPINE 15 MG TAB GTB SCH (20:43)
[2016-09-30] VITALS (27 sets, daily range): BP systolic 95–138; BP diastolic 36–69; PULSE 62–100; RESP 14–20
[2016-09-30] MEDS: METOCLOPRAMIDE 10 MG INJ IV SCH ×4 (00:28→18:17)
[2016-09-30] MEDS: INSULIN ASPART [NOVOLOG] 3 ML PEN SC SCH ×4 (01:00→18:00)
[2016-09-30] MEDS: LEVALBUTEROL (HFA) 15 GM INHALER INH SCH ×6 (01:19→20:52)
[2016-09-30] MEDS: IPRATROPIUM (HFA) 12.9 GM INHALER INH SCH ×6 (01:19→20:52)
[2016-09-30] MEDS: LANSOPRAZOLE 30 MG CAP PO SCH (05:52)
[2016-09-30 08:28] LABS: HEMATOCRIT 29.4 % (37.0-47.0); HEMOGLOBIN 9.6 g/dl (12.0-16.0); LYMPHOCYTES # 1.2 10^3/ul (0.8-2.9); LYMPHOCYTES % 6.1 % (15.0-51.0); MEAN CORPUSCULAR HEMOGLOBIN 30.8 pg (29.0-33.0); MEAN CORPUSCULAR HGB CONC 32.6 g/dl (32.0-37.0); MEAN CORPUSCULAR VOLUME 94.4 fl (82.0-101.0); MEAN PLATELET VOLUME 7.1 fl (7.4-10.4); MONOCYTE # 1.2 10^3/ul (0.3-0.9); NEUTROPHIL # 17.7 10^3/ul (1.6-7.5); NEUTROPHILS % 87.9 % (39.0-77.0); PLATELET COUNT 252 10^3/UL (140-440); RED BLOOD COUNT 3.12 10^6/ul (4.20-5.40); RED CELL DISTRIBUTION WIDTH 17.6 % (11.5-14.5); UNCORRECTED WBC 20.2 10^3/ul (4.8-10.8); WHITE BLOOD COUNT 20.2 10^3/ul (4.8-10.8)
[2016-09-30 08:32] LABS: CONDITION 1; LH ANALYZER COMMENTS 1
[2016-09-30] MEDS: VORICONAZOLE 200 MG TAB PO SCH ×2 (09:13→21:12)
[2016-09-30] MEDS: APIXABAN 5 MG TABLET GTB SCH ×2 (09:13→21:15)
[2016-09-30] MEDS: LEVETIRACETAM IV 500 MG in DEXTROSE 5% 100 ML IVPB SCH ×2 (09:14→21:12)
[2016-09-30] MEDS: SILDENAFIL 20 MG TAB PO SCH ×3 (09:14→21:15)
[2016-09-30] MEDS: MUPIROCIN 2% 22 GM OINT TOP SCH ×2 (09:15→21:16)
[2016-09-30] MEDS: BUDESONIDE (NEB) 0.5MG/2ML AMP HHN SCH ×2 (09:28→19:19)
--- NOTE | 2016-09-30 11:33 | CONS ---
Date/Time of Note Date/Time of Note DATE: 09/30/16 TIME: 11:31 Assessment/Plan Assessment/Plan Additional Assessment/Plan Additional Assessment/Plan Additional Assessment/Plan ASSESSMENT: 1. Renal failure on dialysis. 2. Vent dependent respiratory failure. 3. Chronic obstructive pulmonary disease. 4. Atrial fibrillation. 5. Ascites, successful paracentesis done. 6. Dysphagia, on nasogastric tube feeding. 7. Failed gastrostomy tube feeding 3 times in the past secondary to leakage from the gastrostomy tube site, so the gastrostomy tube had to be removed. 8. Anemia. 9. Status post septic shock. 10. Diabetes mellitus. 11. Decubitus ulcer. 12. Congestive heart failure. 13. Seizure disorder. 14. pneumonia,s/p sepsis 15.MRSA carrier Plan continue antibiotics monitor WBC Reglan for gastroparesis Bactroban to g tube site. Consultation Date/Type/Reason Admit Date/Time Sep 17, 2016 at 18:49 Type of Consultation: ID 24 HR Interval Summary Constitutional: no complaints Exam/Review of Systems Vital Signs Vitals Vital Signs Date Time Temp Pulse Resp B/P Pulse Ox O2 Delivery O2 Flow Rate FiO2 09/30/16 11:10 83 16 92 30 09/30/16 08:37 138/69 09/30/16 07:02 99.5 09/28/16 20:00 Mechanical Ventilator Intake and Output 09/29/16 09/29/16 09/30/16 15:00 23:00 07:00 Intake Total 985 ml 630 ml Output Total 1600 ml Balance -615 ml 630 ml Exam Constitutional: alert, oriented, well developed Psych: nl mood/affect, no complaints Respiratory: clear to auscultation, normal air movement Cardiovascular: nl pulses, regular rate and rhythm Gastrointestinal: non-tender, soft (mild redness around g tube ,no discharge, stoma looks good) Extremities: normal pulses Neurological: 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, nl mental status, nl speech, nl strength Results Result Diagram: 09/30/16 0810 09/29/16 0515 Results 24 hrs Laboratory Tests Test 09/29/16 16:53 09/29/16 21:01 09/30/16 01:48 09/30/16 05:49 Bedside Glucose 121 150 102 102 Test 09/30/16 08:00 09/30/16 08:10 Bedside Glucose 110 Basophils # 0.0 Basophils % 0.0 Blood Morphology Comment Eosinophils # 0.0 Eosinophils % 0.0 Hematocrit 29.4 L Hemoglobin 9.6 L Lymphocytes # 1.2 Lymphocytes % 6.1 L Mean Corpuscular Hemoglobin 30.8 Mean Corpuscular Hemoglobin Concent 32.6 Mean Corpuscular Volume 94.4 Mean Platelet Volume 7.1 L Monocytes # 1.2 H Monocytes % 6.0 Neutrophils # 17.7 H Neutrophils % 87.9 H Nucleated Red Blood Cells # 0.0 Nucleated Red Blood Cells % 0.0 Platelet Count 252 # Red Blood Count 3.12 L Red Cell Distribution Width 17.6 H White Blood Count 20.2 H Medications Medications Current Medications Levetiracetam/ Dextrose (Keppra Iv/D5W) 105 ml @ 420 mls/hr Q12 IVPB Last administered on 09/30/16at 09:14; Admin Dose 420 MLS/HR; Start 09/18/16 at 09: 00 Collagenase (Santyl) 1 applic DAILY TOP Last administered on 09/29/16at 09:33; Admin Dose 1 APPLIC; Start 09/18/16 at 09:00 Acetaminophen (Tylenol Liquid) 650 mg Q4H PRN NGT PAIN AND OR ELEVATED TEMP Last administered on 09/29/16at 12:07; Admin Dose 650 MG; Start 09/18/16 at 08: 00 Bisacodyl (Dulcolax Supp) 10 mg DAILY PRN ID CONSTIPATION; Start 09/18/16 at 08:00 Mupirocin (Bactroban) Apply to bilateral nares ... BID TOP Last administered on 09/30/16at 09:15; Admin Dose 1 APPLIC; Start 09/18/16 at 09:00 Mirtazapine (Remeron) 7.5 mg HS GTB Last administered on 09/29/16at 20:43; Admin Dose 7.5 MG; Start 09/18/16 at 21:00 Ondansetron HCl (Zofran Inj) 4 mg Q4H PRN IV NAUSEA AND/OR VOMITING; Start 08/24 at 08:00 Morphine Sulfate (morphine) 2 mg Q3H PRN IV PAIN LEVEL 6-10 Last administered on 09/28/16at 12:25; Admin Dose 2 MG; Start 09/18/16 at 08:00 Lorazepam (Ativan) 0.5 mg Q3H PRN IV ANXIETY; Start 09/18/16 at 08:00 Amikacin Sulfate (Amikacin Iv Per Pharmacy) PER PHARMACY DOSING NOTE XX ; Start 09/18/16 at 13:00 Vancomycin HCl (Vanco Iv Per Pharmacy) PER PHARMACY DOSING NOTE XX ; Start 08/24 at 13:00 IV Flush (NS 10 ml) 10 ml PRN PRN IV IV PROTOCOL Last administered on at 06:01; Admin Dose 10 ML; Start 09/18/16 at 13:00 Sildenafil Citrate (Revatio) 20 mg TID PO Last administered on 09/30/16at 09:14 ; Admin Dose 20 MG; Start 09/19/16 at 09:00 Miscellaneous Information 1 ea NOTE XX ; Start 09/19/16 at 12:00 Glucose (Glutose) 15 gm Q15M PRN PO DECREASED GLUCOSE; Start 09/19/16 at 12:00 Glucose (Glutose) 22.5 gm Q15M PRN PO DECREASED GLUCOSE; Start 09/19/16 at 12: 00 Dextrose (D50w Syringe) 25 ml Q15M PRN IV DECREASED GLUCOSE; Start 09/19/16 at 12:00 Dextrose (D50w Syringe) 50 ml Q15M PRN IV DECREASED GLUCOSE; Start 09/19/16 at 12:00 Glucagon (Glucagen) 1 mg Q15M PRN IM DECREASED GLUCOSE; Start 09/19/16 at 12: 00 Glucose (Glutose) 15 gm Q15M PRN BUCCAL DECREASED GLUCOSE; Start 09/19/16 at 12:00 Voriconazole 200 mg 200 mg BID PO Last administered on 09/30/16at 09:13; Admin Dose 200 MG; Start 09/23/16 at 21:00 Vancomycin HCl (Vancocin) 250 ml @ 125 mls/hr Q96H IVPB Last administered on 09/27/16at 12:37; Admin Dose 125 MLS/HR; Start 09/23/16 at 13:00 Lansoprazole (Prevacid) 30 mg DAILY@06 PO Last administered on 09/30/16at 05:52 ; Admin Dose 30 MG; Start 09/27/16 at 06:00 Apixaban (Eliquis) 2.5 mg BID GTB Last administered on 09/30/16at 09:13; Admin Dose 2.5 MG; Start 09/30/16 at 09:00 Metoclopramide HCl (Reglan) 5 mg Q6 IV ; Start 09/30/16 at 12:00 Insulin Aspart (Novolog Insulin Pen) NOVOLOG *MILD* ALGORI... Q6 SC ; Start at 12:00 ANNABEL CISSE MD Sep 30, 2016 11:33
--- NOTE | 2016-09-30 12:27 | PN ---
DATE: 09/30/2016 SUBJECTIVE: The patient is stable. The patient, however, stated that she is hungry and would like to start oral feeding. No other events noted. No hemoptysis, hematemesis or hematochezia. PHYSICAL EXAMINATION: VITAL SIGNS: Blood pressure is 95/44, respirations 20, pulse 88, temperature is 99.5. HEENT: Head is normocephalic. NECK: Supple. HEART: Regular rate. LUNGS: Show diminished breath sounds at the base. ABDOMEN: Soft, nontender to palpation. Mildly distended. Positive fluid wave. EXTREMITIES: Negative for clubbing, cyanosis. No edema. DERMATOLOGIC: No rashes. MUSCULOSKELETAL: No joint effusion. NEUROLOGIC: No change in exam. MEDICATIONS: The patient's medications have been reviewed. LABORATORY DATA: Currently pending. ASSESSMENT AND PLAN: 1. Sepsis, status post shock. Etiology secondary to pneumonia, decubitus wound. Continue current antibiotic regimen. White count was rising, we will follow up CBC. 2. Urinary tract infection. Continue voriconazole. 3. End-stage renal disease. The patient had hemodialysis yesterday, anticipate dialysis tomorrow. 4. Pulmonary hypertension. Continue sildenafil. 5. Anemia. Continue to monitor hemoglobin and hematocrit levels. Continue Epogen. 6. Atrial fibrillation, rate controlled. Continue medical management. 7. Seizure disorder. Continue Keppra. 8. Decubitus wound. Continue wound care. 9. Diabetes. Continue Accu-Cheks and sliding scale. 10. Dysphagia, status post percutaneous endoscopic gastrostomy. Continue tube feeding. We will pl dexter a speech therapy evaluation to consider oral trials. 11. Chronic encephalopathy. No change. 12. Coronary artery disease. Continue medical management. 13. Congestive heart failure, right-sided heart failure. Continue current medical management. 14. History of cerebrovascular accident. 15. Gastrointestinal and deep venous thrombosis prophylaxis. Continue PPI and heparin. DISPOSITION: The patient is pending transfer to [facility] once a bed is available. Dictated By: RUDDY BUSTILLOS/ARNOLDO Conf#: [id number] DID#: [id number]
[2016-09-30] MEDS: COLLAGENASE 30 GM TUBE TOP SCH (13:25)
--- NOTE | 2016-09-30 13:51 | CONS ---
Date/Time of Note Date/Time of Note DATE: 09/30/16 TIME: 13:49 Consult Date/Type/Reason Admit Date/Time Sep 17, 2016 at 18:49 Type of Consultation: ID Subjective no acute changes per report, lying comfortably in bed, no fevers, tolerates TF Objective Vital Signs Date Time Temp Pulse Resp B/P Pulse Ox O2 Delivery O2 Flow Rate FiO2 09/30/16 13:05 108 14 95 45 09/30/16 11:40 97.8 98/42 09/28/16 20:00 Mechanical Ventilator Intake and Output 09/29/16 09/29/16 09/30/16 15:00 23:00 07:00 Intake Total 985 ml 630 ml Output Total 1600 ml Balance -615 ml 630 ml Results/Medications Result Diagram: 09/30/16 0810 09/29/16 0515 Results 24 hrs Laboratory Tests Test 09/29/16 16:53 09/29/16 21:01 09/30/16 01:48 09/30/16 05:49 Bedside Glucose 121 150 102 102 Test 09/30/16 08:00 09/30/16 08:10 09/30/16 12:36 Bedside Glucose 110 90 Basophils # 0.0 Basophils % 0.0 Blood Morphology Comment Eosinophils # 0.0 Eosinophils % 0.0 Hematocrit 29.4 L Hemoglobin 9.6 L Lymphocytes # 1.2 Lymphocytes % 6.1 L Mean Corpuscular Hemoglobin 30.8 Mean Corpuscular Hemoglobin Concent 32.6 Mean Corpuscular Volume 94.4 Mean Platelet Volume 7.1 L Monocytes # 1.2 H Monocytes % 6.0 Neutrophils # 17.7 H Neutrophils % 87.9 H Nucleated Red Blood Cells # 0.0 Nucleated Red Blood Cells % 0.0 Platelet Count 252 # Red Blood Count 3.12 L Red Cell Distribution Width 17.6 H White Blood Count 20.2 H Medications Current Medications Levetiracetam/ Dextrose (Keppra Iv/D5W) 105 ml @ 420 mls/hr Q12 IVPB Last administered on 09/30/16at 09:14; Admin Dose 420 MLS/HR; Start 09/18/16 at 09: 00 Collagenase (Santyl) 1 applic DAILY TOP Last administered on 09/30/16at 13:25; Admin Dose 1 APPLIC; Start 11/10/16 at 09:00 Acetaminophen (Tylenol Liquid) 650 mg Q4H PRN NGT PAIN AND OR ELEVATED TEMP Last administered on 09/29/16at 12:07; Admin Dose 650 MG; Start 09/18/16 at 08: 00 Bisacodyl (Dulcolax Supp) 10 mg DAILY PRN MD CONSTIPATION; Start 09/18/16 at 08:00 Mupirocin (Bactroban) Apply to bilateral nares ... BID TOP Last administered on 09/30/16at 09:15; Admin Dose 1 APPLIC; Start 09/18/16 at 09:00 Mirtazapine (Remeron) 7.5 mg HS GTB Last administered on 09/29/16at 20:43; Admin Dose 7.5 MG; Start 09/18/16 at 21:00 Ondansetron HCl (Zofran Inj) 4 mg Q4H PRN IV NAUSEA AND/OR VOMITING; Start 08/24 at 08:00 Morphine Sulfate (morphine) 2 mg Q3H PRN IV PAIN LEVEL 6-10 Last administered on 09/28/16at 12:25; Admin Dose 2 MG; Start 09/18/16 at 08:00 Lorazepam (Ativan) 0.5 mg Q3H PRN IV ANXIETY; Start 09/18/16 at 08:00 Amikacin Sulfate (Amikacin Iv Per Pharmacy) PER PHARMACY DOSING NOTE XX ; Start 09/18/16 at 13:00 Vancomycin HCl (Vanco Iv Per Pharmacy) PER PHARMACY DOSING NOTE XX ; Start 08/24 at 13:00 IV Flush (NS 10 ml) 10 ml PRN PRN IV IV PROTOCOL Last administered on at 06:01; Admin Dose 10 ML; Start 09/18/16 at 13:00 Sildenafil Citrate (Revatio) 20 mg TID PO Last administered on 09/30/16at 13:22 ; Admin Dose 20 MG; Start 09/19/16 at 09:00 Miscellaneous Information 1 ea NOTE XX ; Start 09/19/16 at 12:00 Glucose (Glutose) 15 gm Q15M PRN PO DECREASED GLUCOSE; Start 09/19/16 at 12:00 Glucose (Glutose) 22.5 gm Q15M PRN PO DECREASED GLUCOSE; Start 09/19/16 at 12: 00 Dextrose (D50w Syringe) 25 ml Q15M PRN IV DECREASED GLUCOSE; Start 09/19/16 at 12:00 Dextrose (D50w Syringe) 50 ml Q15M PRN IV DECREASED GLUCOSE; Start 09/19/16 at 12:00 Glucagon (Glucagen) 1 mg Q15M PRN IM DECREASED GLUCOSE; Start 09/19/16 at 12: 00 Glucose (Glutose) 15 gm Q15M PRN BUCCAL DECREASED GLUCOSE; Start 09/19/16 at 12:00 Voriconazole 200 mg 200 mg BID PO Last administered on 09/30/16at 09:13; Admin Dose 200 MG; Start 09/23/16 at 21:00 Vancomycin HCl (Vancocin) 250 ml @ 125 mls/hr Q96H IVPB Last administered on 09/27/16at 12:37; Admin Dose 125 MLS/HR; Start 09/23/16 at 13:00 Lansoprazole (Prevacid) 30 mg DAILY@06 PO Last administered on 09/30/16at 05:52 ; Admin Dose 30 MG; Start 09/27/16 at 06:00 Apixaban (Eliquis) 2.5 mg BID GTB Last administered on 09/30/16at 09:13; Admin Dose 2.5 MG; Start 09/30/16 at 09:00 Metoclopramide HCl (Reglan) 5 mg Q6 IV Last administered on 09/30/16at 12:39; Admin Dose 5 MG; Start 09/30/16 at 12:00 Insulin Aspart (Novolog Insulin Pen) NOVOLOG *MILD* ALGORI... Q6 SC ; Start at 12:00 Miscellaneous Information (*Rx Drug Level Order Reminder*) 1 ONCE ONCE XX ; Start 10/01/16 at 12:00; Stop 10/01/16 at 12:01 Assessment/Plan Chief Complaint/Hosp Course MICROBIOLOGY: Endotracheal aspirate growing multidrug resistant Pseudomonas. Blood cultures negative, wound culture of her sacrum growing MRSA. Urine culture growing Kelly glabrata. INDWELLING: The patient has endotracheal tube, PEG, RIJ Perm-A-Cath, Left upper extremity PICC line placed on 09/18/2016. ANTIMICROBIALS: 1. Amikacin. 2. Vancomycin. 3. Vfend PHYSICAL EXAMINATION: GENERAL: Fragile, chronically ill-appearing, elderly woman who is lying comfortably in bed. HEENT: Head atraumatic, normocephalic. Sclerae anicteric. Buccal mucosa dry. NECK: Supple. Tracheostomy present. CHEST: Rise symmetrical. Breath sounds diminished to bases. HEART: S1, S2. ABDOMEN: Soft, bowel tones present. EXTREMITIES: Without cyanosis. ASSESSMENT: 1. Resolving sepsis status post shock. 2. Healthcare-associated pneumonia with parapneumonic pleural effusion and sputum culture growing multi-drug resistant Pseudomonas aeruginosa. 3. Methicillin-resistant Staphylococcus aureus infected decubitus. 4. Kelly glabrata urinary tract infection. 5. Methicillin-resistant Staphylococcus aureus nares colonization. 6. End-stage renal disease, hemodialysis dependent. 7. History of cerebrovascular accident. 8. Ascites==> s/p paracentesis 09/24===> cx negative 9. ALLERGY TO PENICILLIN AND SULFA. PLAN: The patient remains unchanged. No fevers, completing antibiotics, continue topical Bactroban to nares and local wound care DW staff Problems: RAISSA ROA NP Sep 30, 2016 13:51
--- NOTE | 2016-09-30 15:12 | PN ---
DATE: 09/30/2016 CARDIOLOGY FOLLOWUP SUBJECTIVE: Discussed with the staff. ____ No acute bleeding is reported. The patient is status po st trach on the vent. Remains in atrial fibrillation. Rhythm strip was reviewed. Heart rate has b een under good control. No reported chest pain or pressure. MEDICATIONS: Reviewed as per medical reconciliation sheet which was personally reviewed. PHYSICAL EXAMINATION: VITAL SIGNS: Temperature 99.5, heart rate of 83, blood pressure of 138/69, respiratory rate of 18. HEENT: Normocephalic, atraumatic. Pupils are equal. NECK: Status post tracheostomy, on the vent. CARDIOVASCULAR: Irregularly irregular. PULMONARY: With no wheezes. GASTROINTESTINAL: Status post PEG placement, otherwise soft. No rebound or guarding. EXTREMITIES: Trivial edema . NEUROLOGIC: Awake , responds appropriately. LABORATORY: WBC of 22.2, hemoglobin 9.6, platelets 252. ASSESSMENT AND PLAN: 1. Hypoxemic respiratory failure, status post tracheostomy. 2. Atrial fibrillation, appeared to be chronic. Heart rate controlled. 3. Renal failure on dialysis. 4. Pulmonary hypertension. 5. Possible ____ seizure disorder. Multiple decubitus ulcers. 6. Diabetes. 7. Fluid overload. RECOMMENDATIONS: Anemia with guaiac stools negative. 1. Vent support will be continued. Heart rate is currently under control. We will continue with th e current regimen. Antibiotic is managed as per internal medicine and ID's recommendation. Given h er risk factors and chronic atrial fibrillation, started on low dose Eliquis 2.5 mg p.o. b.i.d. Dictated By: AMANDA PINTO MD AV/ARNOLDO Conf#: [id number] DID#: [id number] CC: RUDDY GEE DO;*EndCC*
--- NOTE | 2016-09-30 18:26 | CONS ---
Date/Time of Note Date/Time of Note DATE: 09/30/16 TIME: 18:15 Consult Date/Type/Reason Admit Date/Time Sep 17, 2016 at 18:49 Initial Consult Date Type of Consultation: pulmonary Subjective Patient remained stable Objective Vital Signs Date Time Temp Pulse Resp B/P Pulse Ox O2 Delivery O2 Flow Rate FiO2 09/30/16 17:01 94 18 95 45 09/30/16 15:34 98.3 109/47 09/28/16 20:00 Mechanical Ventilator Intake and Output 09/29/16 09/29/16 09/30/16 15:00 23:00 07:00 Intake Total 985 ml 630 ml Output Total 1600 ml Balance -615 ml 630 ml PHYSICAL EXAMINATION: VITAL SIGNS: As above NECK: Supple. No JVD or lymphadenopathy. CARDIAC: S1, S2, no added sounds or murmurs. CHEST: Diminished air entry bilaterally. ABDOMEN: Soft, nontender. No guarding or rebound. EXTREMITIES: No cyanosis, clubbing or edema. NEUROLOGIC: Generalized weakness. Results/Medications Result Diagram: 09/30/16 0810 09/29/16 0515 Results 24 hrs Laboratory Tests Test 09/29/16 21:01 09/30/16 01:48 09/30/16 05:49 09/30/16 08:00 Bedside Glucose 150 102 102 110 Test 09/30/16 08:10 09/30/16 12:36 Basophils # 0.0 Basophils % 0.0 Blood Morphology Comment Eosinophils # 0.0 Eosinophils % 0.0 Hematocrit 29.4 L Hemoglobin 9.6 L Lymphocytes # 1.2 Lymphocytes % 6.1 L Mean Corpuscular Hemoglobin 30.8 Mean Corpuscular Hemoglobin Concent 32.6 Mean Corpuscular Volume 94.4 Mean Platelet Volume 7.1 L Monocytes # 1.2 H Monocytes % 6.0 Neutrophils # 17.7 H Neutrophils % 87.9 H Nucleated Red Blood Cells # 0.0 Nucleated Red Blood Cells % 0.0 Platelet Count 252 # Red Blood Count 3.12 L Red Cell Distribution Width 17.6 H White Blood Count 20.2 H Bedside Glucose 90 Medications Current Medications Levetiracetam/ Dextrose (Keppra Iv/D5W) 105 ml @ 420 mls/hr Q12 IVPB Last administered on 09/30/16at 09:14; Admin Dose 420 MLS/HR; Start 09/18/16 at 09: 00 Collagenase (Santyl) 1 applic DAILY TOP Last administered on 09/30/16at 13:25; Admin Dose 1 APPLIC; Start 09/18/16 at 09:00 Acetaminophen (Tylenol Liquid) 650 mg Q4H PRN NGT PAIN AND OR ELEVATED TEMP Last administered on 09/29/16at 12:07; Admin Dose 650 MG; Start 09/18/16 at 08: 00 Bisacodyl (Dulcolax Supp) 10 mg DAILY PRN [place] CONSTIPATION; Start 09/18/16 at 08:00 Mupirocin (Bactroban) Apply to bilateral nares ... BID TOP Last administered on 09/30/16at 09:15; Admin Dose 1 APPLIC; Start 09/18/16 at 09:00 Mirtazapine (Remeron) 7.5 mg HS GTB Last administered on 09/29/16at 20:43; Admin Dose 7.5 MG; Start 09/18/16 at 21:00 Ondansetron HCl (Zofran Inj) 4 mg Q4H PRN IV NAUSEA AND/OR VOMITING; Start 08/24 at 08:00 Morphine Sulfate (morphine) 2 mg Q3H PRN IV PAIN LEVEL 6-10 Last administered on 09/28/16at 12:25; Admin Dose 2 MG; Start 09/18/16 at 08:00 Lorazepam (Ativan) 0.5 mg Q3H PRN IV ANXIETY; Start 09/18/16 at 08:00 Amikacin Sulfate (Amikacin Iv Per Pharmacy) PER PHARMACY DOSING NOTE XX ; Start 09/18/16 at 13:00 Vancomycin HCl (Vanco Iv Per Pharmacy) PER PHARMACY DOSING NOTE XX ; Start 08/24 at 13:00 IV Flush (NS 10 ml) 10 ml PRN PRN IV IV PROTOCOL Last administered on at 06:01; Admin Dose 10 ML; Start 09/18/16 at 13:00 Sildenafil Citrate (Revatio) 20 mg TID PO Last administered on 09/30/16at 13:22 ; Admin Dose 20 MG; Start 09/19/16 at 09:00 Miscellaneous Information 1 ea NOTE XX ; Start 09/19/16 at 12:00 Glucose (Glutose) 15 gm Q15M PRN PO DECREASED GLUCOSE; Start 09/19/16 at 12:00 Glucose (Glutose) 22.5 gm Q15M PRN PO DECREASED GLUCOSE; Start 09/19/16 at 12: 00 Dextrose (D50w Syringe) 25 ml Q15M PRN IV DECREASED GLUCOSE; Start 09/19/16 at 12:00 Dextrose (D50w Syringe) 50 ml Q15M PRN IV DECREASED GLUCOSE; Start 09/19/16 at 12:00 Glucagon (Glucagen) 1 mg Q15M PRN IM DECREASED GLUCOSE; Start 09/19/16 at 12: 00 Glucose (Glutose) 15 gm Q15M PRN BUCCAL DECREASED GLUCOSE; Start 09/19/16 at 12:00 Voriconazole 200 mg 200 mg BID PO Last administered on 09/30/16at 09:13; Admin Dose 200 MG; Start 09/23/16 at 21:00 Vancomycin HCl (Vancocin) 250 ml @ 125 mls/hr Q96H IVPB Last administered on 09/27/16at 12:37; Admin Dose 125 MLS/HR; Start 09/23/16 at 13:00 Lansoprazole (Prevacid) 30 mg DAILY@06 PO Last administered on 09/30/16at 05:52 ; Admin Dose 30 MG; Start 09/27/16 at 06:00 Apixaban (Eliquis) 2.5 mg BID GTB Last administered on 09/30/16at 09:13; Admin Dose 2.5 MG; Start 09/30/16 at 09:00 Metoclopramide HCl (Reglan) 5 mg Q6 IV Last administered on 09/30/16at 12:39; Admin Dose 5 MG; Start 09/30/16 at 12:00 Insulin Aspart (Novolog Insulin Pen) NOVOLOG *MILD* ALGORI... Q6 SC ; Start at 12:00 Miscellaneous Information (*Rx Drug Level Order Reminder*) 1 ONCE ONCE XX ; Start 10/01/16 at 12:00; Stop 10/01/16 at 12:01 Assessment/Plan Chief Complaint/Hosp Course IMPRESSION AND PLAN: 1. Vent dependent respiratory failure. Persistent leukocytosis 2. Pleural effusion, possible healthcare-associated pneumonia. 3. Pulmonary hypertension. 4. History of cerebrovascular accident. 5. History of encephalopathy. 6. Dysfunctional G-tube. Recommendations 1. Continue antibiotics 2. Continue ventilator 3. Tube feeding as tolerated 4. ID recommendations 5. Renal recommendations Overall prognosis guarded consider palliative care consult Problems: JUL[facility] HER[facility]NDEZ [facility] Sep 30, 2016 18:26
[2016-09-30] MEDS: MIRTAZAPINE 15 MG TAB GTB SCH (21:13)
[2016-10-01] VITALS (38 sets, daily range): BP systolic 82–117; BP diastolic 41–57; PULSE 97–130; RESP 12–22
[2016-10-01] MEDS: METOCLOPRAMIDE 10 MG INJ IV SCH ×5 (00:14→23:52)
[2016-10-01] MEDS: LEVALBUTEROL (HFA) 15 GM INHALER INH SCH ×6 (01:21→20:07)
[2016-10-01] MEDS: IPRATROPIUM (HFA) 12.9 GM INHALER INH SCH ×6 (01:21→20:08)
[2016-10-01] MEDS: LANSOPRAZOLE 30 MG CAP PO SCH (05:49)
[2016-10-01] MEDS: INSULIN ASPART [NOVOLOG] 3 ML PEN SC SCH ×5 (05:49→23:51)
[2016-10-01 06:18] LABS: ALBUMIN 2.7 g/dl (3.3-4.9); POTASSIUM 4.9 mmol/L (3.5-5.1)
[2016-10-01 06:20] LABS: BILIRUBIN,INDIRECT 0.2 mg/dl (0-1.1); BILIRUBIN,TOTAL 0.2 mg/dl (0.2-1.3); CREATININE 2.59 mg/dl (0.44-1.00)
[2016-10-01 06:21] LABS: ALBUMIN/GLOBULIN RATIO 0.75; CALCIUM 8.1 mg/dl (8.4-10.2); HEMATOCRIT 31.8 % (37.0-47.0); HEMOGLOBIN 10.4 g/dl (12.0-16.0); MEAN CORPUSCULAR HEMOGLOBIN 30.7 pg (29.0-33.0); MEAN CORPUSCULAR HGB CONC 32.6 g/dl (32.0-37.0); MEAN CORPUSCULAR VOLUME 93.9 fl (82.0-101.0); MEAN PLATELET VOLUME 7.4 fl (7.4-10.4); PLATELET COUNT 298 10^3/UL (140-440); RED BLOOD COUNT 3.39 10^6/ul (4.20-5.40); RED CELL DISTRIBUTION WIDTH 18.5 % (11.5-14.5); TOTAL PROTEIN 6.3 g/dl (6.1-8.1); UNCORRECTED WBC 27.5 10^3/ul (4.8-10.8); WHITE BLOOD COUNT 27.5 10^3/ul (4.8-10.8)
[2016-10-01 06:22] LABS: CONDITION 1; LH ANALYZER COMMENTS 1; SUSPECT 1
[2016-10-01 06:29] LABS: MAGNESIUM 2.1 mg/dl (1.7-2.5); PHOSPHORUS 5.2 mg/dl (2.5-4.9)
--- NOTE | 2016-10-01 06:52 | PN ---
DATE: 09/29/2016 CARDIOLOGY FOLLOWUP SUBJECTIVE: Discussed with the staff. Rhythm strip was reviewed. No new cardiac event. Patient i s on dialysis. No chest pain or pressure, remains in atrial fibrillation. Heart rate under good co ntrol. MEDICATIONS: Reviewed, which include Reglan, ____, vancomycin. PHYSICAL EXAMINATION: VITAL SIGNS: Temperature 98.9, heart rate of 100, blood pressure 98/54, respiratory rate of 20. HEENT: Normocephalic, atraumatic. Pupils are equal. NECK: Status post tracheostomy, on the vent. CARDIOVASCULAR: Irregularly irregular, systolic murmur. PULMONARY: With diffuse rhonchi. GASTROINTESTINAL: Soft, status post percutaneous endoscopic gastrostomy placement. EXTREMITIES: With trivial edema. NEUROLOGIC: Awake, responds appropriately. LABORATORY: WBC of 18.7, hemoglobin 10.4, platelets 337. Sodium 128, potassium 5.5, BUN of 65, cre atinine 14, glucose 104.2. ASSESSMENT AND PLAN: 1. Atrial fibrillation, chronic. 2. Respiratory failure, status post tracheostomy. 3. Status post septic shock. 4. Renal failure on dialysis. 5. Pulmonary hypertension. 6. Possible ASD. 7. Seizure disorder. 8. Decubitus ulcer. 9. Dysphagia, status post PEG placement. 10. Diabetes. 11. Severe anemia. 12. Fluid overload. 13. Congestive heart failure. RECOMMENDATIONS: We will continue with the current cardiac care for now. Dialysis will be continue d. We will consider anticoagulation if it is okay with GI. Dictated By: AMANDA PINTO MD AV/ARNOLDO Conf#: [id number] DID#: [id number] CC: RUDDY GEE DO;*EndCC*
[2016-10-01] MEDS: BUDESONIDE (NEB) 0.5MG/2ML AMP HHN SCH ×2 (08:09→20:08)
[2016-10-01] MEDS: LEVETIRACETAM IV 500 MG in DEXTROSE 5% 100 ML IVPB SCH ×2 (08:49→21:00)
[2016-10-01] MEDS: APIXABAN 5 MG TABLET GTB SCH ×2 (08:49→21:01)
[2016-10-01] MEDS: VORICONAZOLE 200 MG TAB PO SCH ×2 (08:49→21:01)
[2016-10-01] MEDS: SILDENAFIL 20 MG TAB PO SCH ×3 (08:50→21:00)
[2016-10-01] MEDS: MUPIROCIN 2% 22 GM OINT TOP SCH ×2 (08:52→21:02)
[2016-10-01 09:34] LABS: ANISOCYTOSIS 2+; LYMPHOCYTES # 1.9 10^3/ul (0.8-2.9); MONOCYTE # 1.1 10^3/ul (0.3-0.9); NEUTROPHIL # 24.5 10^3/ul (1.6-7.5); PLATELET ESTIMATE PLT APPEAR ADEQUATE
--- NOTE | 2016-10-01 09:37 | RADRPT ---
PROCEDURE: Ultrasound four quadrants CLINICAL INDICATION: Abdominal distension. Evaluate for ascites. TECHNIQUE: Sonographic evaluation of the four quadrants of the abdomen was performed. Felix-scale imaging was utilized. Images were reviewed on a high-resolution PACS workstation. COMPARISON: Abdominal ultrasound from 09/27/2016. FINDINGS: There is a trace amount of ascites noted particularly in the right lower quadrant. IMPRESSION: 1. Trace ascites seen in the in the abdomen, particularly in the right lower quadrant. RPTAT: [facility] Physician Timbo Date Time Electronically viewed and signed by Physician Timbo on 10/01/2016 09:37 /
--- NOTE | 2016-10-01 10:21 | PN ---
DATE: 10/01/2016 SUBJECTIVE: The patient is clinically declining. Her FIO2 has increased to 75%. There has been no noted fever overnight. The patient remains intermittently tachycardic. No other acute events note d. OBJECTIVE: VITAL SIGNS: Blood pressure 109/50, respirations is 20, pulse 114, temperature 98.2, on FIO2 of 75% . HEENT: Head is normocephalic. NECK: Shows trach. HEART: Tachycardic. LUNGS: Show diminished breath sounds at the base. ABDOMEN: Soft, nontender to palpation. No rebound or guarding. EXTREMITIES: Negative for clubbing, cyanosis. No edema. DERMATOLOGIC: No rashes. NEUROLOGIC: No change in exam. MEDICATIONS: Patient's medications have been reviewed. LABORATORY DATA: Shows sodium 131, potassium 4.9, chloride 90, BUN 55, creatinine 2.59. White coun t 27.5, hemoglobin 10.4, hematocrit 31.8, platelet count 298. ASSESSMENT AND PLAN: 1. Sepsis, status post shock, etiology secondary to pneumonia, decubitus wound. The patient is on antibiotic therapy. The patient has a persistent leukocytosis, etiology is unclear. We will repeat blood cultures. Check stool for C. difficile. Check lactic acid, procalcitonin level. We will co nsider a CT of abdomen and pelvis and we will follow up with infectious disease. Continue current a ntibiotic therapy of amikacin, vancomycin. Continue Voriconazole. 2. End-stage renal disease. Plan for hemodialysis today. We will dialyze for 3 hours, 3K bath, estelita cium 2.5, ultrafiltrate as tolerated. 4. Pulmonary hypertension. Continue sildenafil. 5. Anemia. Continue to monitor hemoglobin and hematocrit levels. Continue Epogen. 6. Hyponatremia. The patient will be dialyzed on 140 sodium bath. 7. Seizure disorder. Continue Keppra. 8. Decubitus wound. Continue wound care. 9. Diabetes. Continue Accu-Cheks and sliding scale. 10. Dysphagia, status post PEG tube. Continue tube feeding. 11. Chronic encephalopathy. No change. 11. Coronary artery disease. Continue medical management. 12. History of congestive heart failure, right-sided heart failure. Continue current medical manag ement. 13. History of cerebrovascular accident. 14. Gastrointestinal and deep venous thrombosis prophylaxis. Continue PPI and heparin. 15. Ventilator-dependent respiratory failure. The patient's vent settings have been reviewed. FIO 2 levels have been increasing. Underlying etiology is unclear. We will check a chest x-ray and mon itor. Follow up with pulmonary for further recommendations. Dictated By: RUDDY BUSTILLOS/ARNOLDO Conf#: [id number] DID#: [id number]
--- NOTE | 2016-10-01 11:10 | RADRPT ---
PROCEDURE: Chest 1 views. CLINICAL INDICATION: Shortness of breath, pneumonia, congestive heart failure. TECHNIQUE: AP views of the chest were obtained. COMPARISON: September 21, 2016 FINDINGS: The heart is large. Calcified atherosclerosis is noted in the aorta. Tracheostomy tube is stable. Right-sided dialysis catheter is unchanged. Central pulmonary vascular congestion and interstitial prominence continues to be seen in both lungs. Bilateral perihilar and lower lung infiltrates combi latrice with moderate pleural effusions are similar to prior exam, given differences in technique. Left -sided PICC line is unchanged. Osseous structures are intact. IMPRESSION: Cardiomegaly with calcified atherosclerosis in the aorta. Continued central pulmonary vascular congestion and interstitial prominence in both lungs. Continued bilateral perihilar and lower lung infiltrates combined with moderate pleural effusions. RPTAT: AA .Andrew Briceño MD, MD Date Time Electronically viewed and signed by .Andrew Briceño MD, MD on 10/01/2016 11:09 .P/
[2016-10-01 12:48] LABS: ALBUMIN 2.9 g/dl (3.3-4.9)
[2016-10-01 12:51] LABS: BILIRUBIN,INDIRECT 0.3 mg/dl (0-1.1); BILIRUBIN,TOTAL 0.3 mg/dl (0.2-1.3); TOTAL PROTEIN 6.3 g/dl (6.1-8.1)
--- NOTE | 2016-10-01 14:01 | CONS ---
Date/Time of Note Date/Time of Note DATE: 10/01/16 TIME: 13:58 Consult Date/Type/Reason Admit Date/Time Sep 17, 2016 at 18:49 Type of Consultation: ID Subjective no acute changes per report, no fevers, no diarrhea, lying comfortably in bed Objective Vital Signs Date Time Temp Pulse Resp B/P Pulse Ox O2 Delivery O2 Flow Rate FiO2 10/01/16 13:30 114 10/01/16 12:47 75 10/01/16 12:20 97.7 18 97/45 96 09/28/16 20:00 Mechanical Ventilator Intake and Output 09/30/16 09/30/16 10/01/16 15:00 23:00 07:00 Intake Total 105 ml 655 ml 680 ml Balance 105 ml 655 ml 680 ml Results/Medications Result Diagram: 10/01/16 0542 10/01/16 0542 Results 24 hrs Laboratory Tests Test 09/30/16 18:23 10/01/16 00:10 10/01/16 05:42 10/01/16 05:43 Bedside Glucose 125 112 97 Alanine Aminotransferase (ALT/SGPT) 19 Albumin 2.7 L Albumin/Globulin Ratio 0.75 Alkaline Phosphatase 191 H Anion Gap 20 H Anisocytosis 2+ Aspartate Amino Transf (AST/SGOT) 18 Basophils # Basophils % Blood Morphology Comment Blood Urea Nitrogen 55 H Calcium Level 8.1 L Carbon Dioxide Level 26 Chloride Level 90 L Creatinine 2.59 H Differential Comment MANUAL DIFF Direct Bilirubin 0.00 Eosinophils # Eosinophils % Globulin 3.60 H Glucose Level 86 Hematocrit 31.8 L Hemoglobin 10.4 L Indirect Bilirubin 0.2 Lymphocytes # 1.9 Lymphocytes % 7.0 L Magnesium Level 2.1 Mean Corpuscular Hemoglobin 30.7 Mean Corpuscular Hemoglobin Concent 32.6 Mean Corpuscular Volume 93.9 Mean Platelet Volume 7.4 Monocytes # 1.1 H Monocytes % 4.0 Neutrophils # 24.5 H Neutrophils % 89.0 H Nucleated Red Blood Cells # Nucleated Red Blood Cells % Phosphorus Level 5.2 H Platelet Count 298 Platelet Estimate PLT APPEAR ADEQUATE Potassium Level 4.9 Red Blood Count 3.39 L Red Cell Distribution Width 18.5 H Sodium Level 131 L Total Bilirubin 0.2 Total Protein 6.3 White Blood Count 27.5 #H Test 10/01/16 07:50 10/01/16 09:30 10/01/16 11:24 10/01/16 11:52 Bedside Glucose 91 105 Lactic Acid Level 1.7 Vancomycin Level Trough 14.8 Test 10/01/16 12:05 Alanine Aminotransferase (ALT/SGPT) 14 Albumin 2.9 L Alkaline Phosphatase 157 H Aspartate Amino Transf (AST/SGOT) 53 H Direct Bilirubin 0.00 Indirect Bilirubin 0.3 Total Bilirubin 0.3 Total Protein 6.3 Medications Current Medications Levetiracetam/ Dextrose (Keppra Iv/D5W) 105 ml @ 420 mls/hr Q12 IVPB Last administered on 10/01/16at 08:49; Admin Dose 420 MLS/HR; Start 09/18/16 at 09: 00 Collagenase (Santyl) 1 applic DAILY TOP Last administered on 09/30/16at 13:25; Admin Dose 1 APPLIC; Start 09/18/16 at 09:00 Acetaminophen (Tylenol Liquid) 650 mg Q4H PRN NGT PAIN AND OR ELEVATED TEMP Last administered on 09/29/16at 12:07; Admin Dose 650 MG; Start 09/18/16 at 08: 00 Bisacodyl (Dulcolax Supp) 10 mg DAILY PRN [place] CONSTIPATION; Start 09/18/16 at 08:00 Mupirocin (Bactroban) Apply to bilateral nares ... BID TOP Last administered on 10/01/16at 08:52; Admin Dose 1 APPLIC; Start 09/18/16 at 09:00 Mirtazapine (Remeron) 7.5 mg HS GTB Last administered on 09/30/16at 21:13; Admin Dose 7.5 MG; Start 09/18/16 at 21:00 Ondansetron HCl (Zofran Inj) 4 mg Q4H PRN IV NAUSEA AND/OR VOMITING; Start 08/24 at 08:00 Morphine Sulfate (morphine) 2 mg Q3H PRN IV PAIN LEVEL 6-10 Last administered on 09/28/16at 12:25; Admin Dose 2 MG; Start 09/18/16 at 08:00 Lorazepam (Ativan) 0.5 mg Q3H PRN IV ANXIETY; Start 09/18/16 at 08:00 Amikacin Sulfate (Amikacin Iv Per Pharmacy) PER PHARMACY DOSING NOTE XX ; Start 09/18/16 at 13:00 Vancomycin HCl (Vanco Iv Per Pharmacy) PER PHARMACY DOSING NOTE XX ; Start 08/24 at 13:00 IV Flush (NS 10 ml) 10 ml PRN PRN IV IV PROTOCOL Last administered on at 06:01; Admin Dose 10 ML; Start 09/18/16 at 13:00 Sildenafil Citrate (Revatio) 20 mg TID PO Last administered on 09/30/16at 21:15 ; Admin Dose 20 MG; Start 09/19/16 at 09:00 Miscellaneous Information 1 ea NOTE XX ; Start 09/19/16 at 12:00 Glucose (Glutose) 15 gm Q15M PRN PO DECREASED GLUCOSE; Start 09/19/16 at 12:00 Glucose (Glutose) 22.5 gm Q15M PRN PO DECREASED GLUCOSE; Start 09/19/16 at 12: 00 Dextrose (D50w Syringe) 25 ml Q15M PRN IV DECREASED GLUCOSE; Start 09/19/16 at 12:00 Dextrose (D50w Syringe) 50 ml Q15M PRN IV DECREASED GLUCOSE; Start 09/19/16 at 12:00 Glucagon (Glucagen) 1 mg Q15M PRN IM DECREASED GLUCOSE; Start 09/19/16 at 12: 00 Glucose (Glutose) 15 gm Q15M PRN BUCCAL DECREASED GLUCOSE; Start 09/19/16 at 12:00 Voriconazole 200 mg 200 mg BID PO Last administered on 10/01/16at 08:49; Admin Dose 200 MG; Start 09/23/16 at 21:00 Vancomycin HCl (Vancocin) 250 ml @ 125 mls/hr Q96H IVPB Last administered on 09/27/16at 12:37; Admin Dose 125 MLS/HR; Start 09/23/16 at 13:00 Lansoprazole (Prevacid) 30 mg DAILY@06 PO Last administered on 10/01/16at 05:49 ; Admin Dose 30 MG; Start 09/27/16 at 06:00 Apixaban (Eliquis) 2.5 mg BID GTB Last administered on 10/01/16at 08:49; Admin Dose 2.5 MG; Start 09/30/16 at 09:00 Metoclopramide HCl (Reglan) 5 mg Q6 IV Last administered on 10/01/16at 11:57; Admin Dose 5 MG; Start 11/22/16 at 12:00 Insulin Aspart (Novolog Insulin Pen) NOVOLOG *MILD* ALGORI... Q6 SC ; Start at 12:00 Assessment/Plan Chief Complaint/Hosp Course MICROBIOLOGY: Endotracheal aspirate growing multidrug resistant Pseudomonas. Blood cultures negative, wound culture of her sacrum growing MRSA. Urine culture growing Kelly glabrata. INDWELLING: The patient has endotracheal tube, PEG, RIJ Perm-A-Cath, Left upper extremity PICC line placed on 09/18/2016. ANTIMICROBIALS: 1. Amikacin. 2. Vancomycin. 3. Vfend PHYSICAL EXAMINATION: GENERAL: Fragile, chronically ill-appearing, elderly woman who is lying comfortably in bed. HEENT: Head atraumatic, normocephalic. Sclerae anicteric. Buccal mucosa dry. NECK: Supple. Tracheostomy present. CHEST: Rise symmetrical. Breath sounds diminished to bases. HEART: S1, S2. ABDOMEN: Soft, bowel tones present. EXTREMITIES: Without cyanosis. ASSESSMENT: 1. Sepsis, status post shock. 2. Healthcare-associated pneumonia with parapneumonic pleural effusion and sputum culture growing multi-drug resistant Pseudomonas aeruginosa. 3. Methicillin-resistant Staphylococcus aureus infected decubitus. 4. Kelly glabrata urinary tract infection. 5. Methicillin-resistant Staphylococcus aureus nares colonization. 6. End-stage renal disease, hemodialysis dependent. 7. History of cerebrovascular accident. 8. Ascites==> s/p paracentesis 09/24===> cx negative 9. ALLERGY TO PENICILLIN AND SULFA. PLAN: Clinically unchanged, with increasing leukocytosis, will repeat bld cx with HD today, add Flagyl, continue abx, topical Bactroban to nares and local wound care DW staff Problems: RAISSA ROA NP Oct 01, 2016 14:01
--- NOTE | 2016-10-01 14:19 | PN ---
DATE: 10/01/2016 CARDIOLOGY FOLLOWUP SUBJECTIVE: Discussed with the staff. Rhythm strip was reviewed. The patient remains in atrial fibr illation. The patient has become more hypoxemic intermittently, currently on high oxygen. De nies any chest pain or pressure, denies any palpitations, no bleeding has been reported. No palpita tion. MEDICATIONS: Reviewed as per medication reconciliation, was personally reviewed. PHYSICAL EXAMINATION: VITAL SIGNS: Temperature 98.2, heart rate of 70 to 114. Blood pressure 117/50, respiration rate of 20, saturating 92%. HEENT: Normocephalic, atraumatic. Pupils are equal. NECK: Status post tracheostomy, on the vent, currently on 75% oxygen. CARDIOVASCULAR: Irregularly irregular. Systolic murmur. PULMONARY: With no wheezes heard. GASTROINTESTINAL: Soft, nontender. Status post PEG. EXTREMITIES: With trivial edema. NEUROLOGIC: Awake and alert. Responds appropriately. PSYCHIATRIC: Very calm and pleasant. LABORATORY: WBC 27.5, hemoglobin 10.4, platelets of 298. Sodium 131, potassium 4.9, BUN of 55, cre atinine 2159, glucose 86. ASSESSMENT AND PLAN: 1. Hypoxemic respiratory failure. 2. Atrial fibrillation, chronic. Currently on anticoagulation. 3. Status post septic shock. 4. Renal failure on dialysis. 5. History of pulmonary hypertension. 6. Possible AST of PFO. 7. Seizure disorder. 8. Dysphagia. 9. Diabetes. 10. Anemia. 11. Fluid overload/congestive heart failure secondary to above. RECOMMENDATIONS: Chest x-ray has been ordered to be done. Continue ventilator support. Continue w ith Eliquis as long as no bleeding reported. Current to monitor on telemetry. Dictated By: AMANDA PINTO MD AV/ARNOLDO Conf#: [id number] DID#: [id number] CC: RUDDY GEE DO;*EndCC*
[2016-10-01] MEDS: ALTEPLASE (CATHFLO) 2 MG INJ CATHETER PRN (14:57)
[2016-10-01] MEDS: VANCOMYCIN 1 GM in NS 250 ML IVPB SCH (14:58)
[2016-10-01] MEDS: COLLAGENASE 30 GM TUBE TOP SCH (14:58)
[2016-10-01] MEDS: metroNIDAZOLE 500 MG TAB PO SCH ×2 (14:58→21:11)
[2016-10-01] MEDS: AMIKACIN IVPB SCH (14:59)
[2016-10-01] MEDS: SOD CHLORIDE 0.9% IVPB SCH (14:59)
[2016-10-01] MEDS: EPOETIN 10000 UNITS/1 ML INJ (ESRD) SC SCH (14:59)
--- NOTE | 2016-10-01 16:14 | CONS ---
Date/Time of Note Date/Time of Note DATE: 10/01/16 TIME: 16:10 Assessment/Plan Assessment/Plan Chief Complaint/Hosp Course ASSESSMENT: 1. Renal failure on dialysis. 2. Vent dependent respiratory failure. 3. Chronic obstructive pulmonary disease. 4. Atrial fibrillation. 5. Ascites, successful paracentesis done. 6. Dysphagia 7. G-tube site leakage and cellulitis, improving 8. Anemia. 9. Status post septic shock. 10. Diabetes mellitus. 11. Decubitus ulcer. 12. Congestive heart failure. 13. Seizure disorder. 14. pneumonia,s/p sepsis Plan continue antibiotics monitor WBC Reglan for gastroparesis Bactroban to g tube site. Routine G-tube site care appreciate wound nurse management of G-tube site Problems: Consultation Date/Type/Reason Admit Date/Time Sep 17, 2016 at 18:49 Initial Consult Date Type of Consultation: GI 24 HR Interval Summary Free Text/Dictation no acute changes per report, no fevers, no diarrhea, lying comfortably in bed Subjective hx not possible: pt non-verbal Exam/Review of Systems Vital Signs Vitals Vital Signs Date Time Temp Pulse Resp B/P Pulse Ox O2 Delivery O2 Flow Rate FiO2 10/01/16 15:52 97.1 100 20 88/44 96 10/01/16 14:45 70 09/28/16 20:00 Mechanical Ventilator Intake and Output 09/30/16 09/30/16 10/01/16 15:00 23:00 07:00 Intake Total 105 ml 655 ml 680 ml Balance 105 ml 655 ml 680 ml Exam Constitutional: non-verbal Psych: nl mood/affect, no complaints Head: atraumatic, normocephalic Eyes: nl conjunctiva, nl lids, nl sclera ENMT: mucosa pink and moist, nl external ears & nose, nl lips & teeth, nl nasal mucosa & septum Neck: non-tender, supple Respiratory: clear to auscultation, normal air movement Cardiovascular: nl pulses, regular rate and rhythm Gastrointestinal: bowel sounds, non-tender, other (G-tube site clean and intact ), soft Results Result Diagram: 10/01/16 0542 10/01/16 0542 Results 24 hrs Laboratory Tests Test 09/30/16 18:23 10/01/16 00:10 10/01/16 05:42 10/01/16 05:43 Bedside Glucose 125 112 97 Alanine Aminotransferase (ALT/SGPT) 19 Albumin 2.7 L Albumin/Globulin Ratio 0.75 Alkaline Phosphatase 191 H Anion Gap 20 H Anisocytosis 2+ Aspartate Amino Transf (AST/SGOT) 18 Basophils # Basophils % Blood Morphology Comment Blood Urea Nitrogen 55 H Calcium Level 8.1 L Carbon Dioxide Level 26 Chloride Level 90 L Creatinine 2.59 H Differential Comment MANUAL DIFF Direct Bilirubin 0.00 Eosinophils # Eosinophils % Globulin 3.60 H Glucose Level 86 Hematocrit 31.8 L Hemoglobin 10.4 L Indirect Bilirubin 0.2 Lymphocytes # 1.9 Lymphocytes % 7.0 L Magnesium Level 2.1 Mean Corpuscular Hemoglobin 30.7 Mean Corpuscular Hemoglobin Concent 32.6 Mean Corpuscular Volume 93.9 Mean Platelet Volume 7.4 Monocytes # 1.1 H Monocytes % 4.0 Neutrophils # 24.5 H Neutrophils % 89.0 H Nucleated Red Blood Cells # Nucleated Red Blood Cells % Phosphorus Level 5.2 H Platelet Count 298 Platelet Estimate PLT APPEAR ADEQUATE Potassium Level 4.9 Red Blood Count 3.39 L Red Cell Distribution Width 18.5 H Sodium Level 131 L Total Bilirubin 0.2 Total Protein 6.3 White Blood Count 27.5 #H Test 10/01/16 07:50 10/01/16 09:30 10/01/16 11:24 10/01/16 11:52 Bedside Glucose 91 105 Lactic Acid Level 1.7 Vancomycin Level Trough 14.8 Test 10/01/16 12:05 Alanine Aminotransferase (ALT/SGPT) 14 Albumin 2.9 L Alkaline Phosphatase 157 H Aspartate Amino Transf (AST/SGOT) 53 H Direct Bilirubin 0.00 Indirect Bilirubin 0.3 Total Bilirubin 0.3 Total Protein 6.3 Medications Medications Current Medications Levetiracetam/ Dextrose (Keppra Iv/D5W) 105 ml @ 420 mls/hr Q12 IVPB Last administered on 10/01/16at 08:49; Admin Dose 420 MLS/HR; Start 09/18/16 at 09: 00 Collagenase (Santyl) 1 applic DAILY TOP Last administered on 10/01/16at 14:58; Admin Dose 1 APPLIC; Start 09/18/16 at 09:00 Acetaminophen (Tylenol Liquid) 650 mg Q4H PRN NGT PAIN AND OR ELEVATED TEMP Last administered on 09/29/16at 12:07; Admin Dose 650 MG; Start 09/18/16 at 08: 00 Bisacodyl (Dulcolax Supp) 10 mg DAILY PRN [place] CONSTIPATION; Start 09/18/16 at 08:00 Mupirocin (Bactroban) Apply to bilateral nares ... BID TOP Last administered on 10/01/16at 08:52; Admin Dose 1 APPLIC; Start 09/18/16 at 09:00 Mirtazapine (Remeron) 7.5 mg HS GTB Last administered on 09/30/16at 21:13; Admin Dose 7.5 MG; Start 09/18/16 at 21:00 Ondansetron HCl (Zofran Inj) 4 mg Q4H PRN IV NAUSEA AND/OR VOMITING; Start 08/24 at 08:00 Morphine Sulfate (morphine) 2 mg Q3H PRN IV PAIN LEVEL 6-10 Last administered on 09/28/16at 12:25; Admin Dose 2 MG; Start 09/18/16 at 08:00 Lorazepam (Ativan) 0.5 mg Q3H PRN IV ANXIETY; Start 09/18/16 at 08:00 Amikacin Sulfate (Amikacin Iv Per Pharmacy) PER PHARMACY DOSING NOTE XX ; Start 09/18/16 at 13:00 Vancomycin HCl (Vanco Iv Per Pharmacy) PER PHARMACY DOSING NOTE XX ; Start 08/24 at 13:00 IV Flush (NS 10 ml) 10 ml PRN PRN IV IV PROTOCOL Last administered on at 06:01; Admin Dose 10 ML; Start 09/18/16 at 13:00 Sildenafil Citrate (Revatio) 20 mg TID PO Last administered on 09/30/16at 21:15 ; Admin Dose 20 MG; Start 09/19/16 at 09:00 Miscellaneous Information 1 ea NOTE XX ; Start 09/19/16 at 12:00 Glucose (Glutose) 15 gm Q15M PRN PO DECREASED GLUCOSE; Start 09/19/16 at 12:00 Glucose (Glutose) 22.5 gm Q15M PRN PO DECREASED GLUCOSE; Start 09/19/16 at 12: 00 Dextrose (D50w Syringe) 25 ml Q15M PRN IV DECREASED GLUCOSE; Start 09/19/16 at 12:00 Dextrose (D50w Syringe) 50 ml Q15M PRN IV DECREASED GLUCOSE; Start 09/19/16 at 12:00 Glucagon (Glucagen) 1 mg Q15M PRN IM DECREASED GLUCOSE; Start 09/19/16 at 12: 00 Glucose (Glutose) 15 gm Q15M PRN BUCCAL DECREASED GLUCOSE; Start 09/19/16 at 12:00 Voriconazole 200 mg 200 mg BID PO Last administered on 10/01/16 08:49; Admin Dose 200 MG; Start 09/23/16 at 21:00 Vancomycin HCl (Vancocin) 250 ml @ 125 mls/hr Q96H IVPB Last administered on 10/01/16at 14:58; Admin Dose 125 MLS/HR; Start 09/23/16 at 13:00 Lansoprazole (Prevacid) 30 mg DAILY@06 PO Last administered on 10/01/16at 05:49 ; Admin Dose 30 MG; Start 09/27/16 at 06:00 Apixaban (Eliquis) 2.5 mg BID GTB Last administered on 10/01/16 08:49; Admin Dose 2.5 MG; Start 09/30/16 at 09:00 Metoclopramide HCl (Reglan) 5 mg Q6 IV Last administered on 10/01/16at 11:57; Admin Dose 5 MG; Start 09/30/16 at 12:00 Insulin Aspart (Novolog Insulin Pen) NOVOLOG *MILD* ALGORI... Q6 SC ; Start at 12:00 Metronidazole (Flagyl) 500 mg Q8 PO Last administered on 10/01/16 14:58; Admin Dose 500 MG; Start 10/01/16 at 14:30 CAMDEN FRITZ MD Oct 01, 2016 16:13
[2016-10-01] MEDS: MIRTAZAPINE 15 MG TAB GTB SCH (21:01)
[2016-10-02] VITALS (31 sets, daily range): BP systolic 99–124; BP diastolic 46–60; PULSE 90–138; RESP 12–20
[2016-10-02] MEDS: LEVALBUTEROL (HFA) 15 GM INHALER INH SCH ×6 (01:00→20:33)
[2016-10-02] MEDS: IPRATROPIUM (HFA) 12.9 GM INHALER INH SCH ×6 (01:59→20:33)
[2016-10-02] MEDS: INSULIN ASPART [NOVOLOG] 3 ML PEN SC SCH ×4 (05:17→23:31)
[2016-10-02] MEDS: LANSOPRAZOLE 30 MG CAP PO SCH (05:17)
[2016-10-02] MEDS: metroNIDAZOLE 500 MG TAB PO SCH ×3 (05:17→21:05)
[2016-10-02] MEDS: METOCLOPRAMIDE 10 MG INJ IV SCH ×4 (05:17→23:31)
[2016-10-02 06:39] LABS: BASOPHIL # 0.1 10^3/ul (0.0-0.1); BASOPHILS % 0.5 % (0.0-2.0); EOSINOPHILS % 0.1 % (0.0-7.0); HEMATOCRIT 31.3 % (37.0-47.0); HEMOGLOBIN 9.9 g/dl (12.0-16.0); LYMPHOCYTES # 1.5 10^3/ul (0.8-2.9); LYMPHOCYTES % 7.4 % (15.0-51.0); MEAN CORPUSCULAR HEMOGLOBIN 30.3 pg (29.0-33.0); MEAN CORPUSCULAR HGB CONC 31.8 g/dl (32.0-37.0); MEAN CORPUSCULAR VOLUME 95.4 fl (82.0-101.0); MEAN PLATELET VOLUME 7.6 fl (7.4-10.4); MONOCYTE # 1.8 10^3/ul (0.3-0.9); MONOCYTES % 8.9 % (0.0-11.0); NEUTROPHIL # 17.1 10^3/ul (1.6-7.5); NEUTROPHILS % 83.1 % (39.0-77.0); PLATELET COUNT 301 10^3/UL (140-440); RED BLOOD COUNT 3.28 10^6/ul (4.20-5.40); RED CELL DISTRIBUTION WIDTH 18.4 % (11.5-14.5); UNCORRECTED WBC 20.6 10^3/ul (4.8-10.8); WHITE BLOOD COUNT 20.6 10^3/ul (4.8-10.8)
[2016-10-02 06:44] LABS: POTASSIUM 4.2 mmol/L (3.5-5.1)
[2016-10-02 06:47] LABS: CREATININE 1.93 mg/dl (0.44-1.00)
[2016-10-02 06:48] LABS: CALCIUM 8.7 mg/dl (8.4-10.2); MAGNESIUM 2.1 mg/dl (1.7-2.5); PHOSPHORUS 4.8 mg/dl (2.5-4.9)
[2016-10-02 06:48] LABS: CONDITION 1; LH ANALYZER COMMENTS 1
[2016-10-02] MEDS: BUDESONIDE (NEB) 0.5MG/2ML AMP HHN SCH ×2 (07:36→20:00)
[2016-10-02] MEDS: COLLAGENASE 30 GM TUBE TOP SCH (09:00)
--- NOTE | 2016-10-02 10:07 | PN ---
DATE: 10/02/2016 SUBJECTIVE: The patient is stable, no acute events overnight. No fevers, chills, nausea, vomiting. No shortness of breath. The patient had hemodialysis yesterday and tolerated it well. OBJECTIVE: VITAL SIGNS: Blood pressure 118/59, respirations 16, pulse 98, temperature 97.9. HEENT: Head is normocephalic. NECK: Supple. HEART: Regular rate. LUNGS: Showed diminished breath sounds at the base. ABDOMEN: Soft, nontender to palpation. Positive distention. EXTREMITIES: Negative for clubbing or cyanosis. No edema. DERMATOLOGIC: No rashes. MUSCULOSKELETAL: Have no joint effusion. NEUROLOGIC: No change in exam. MEDICATIONS: The patient's medications have been reviewed. LABORATORY DATA: Shows sodium 124, potassium 4.2, chloride 90, BUN 41, creatinine 1.93. White coun t 28.6, hemoglobin 9.9, hematocrit 31.3, platelet count is 301. The patient's lactic acid level was around 1.7. Repeat cultures have been negative. ASSESSMENT: 1. Sepsis, status post shock. Etiology is secondary to pneumonia and decubitus wound. The patient is on antimicrobial and antibiotic therapy. The patient's white count is improving today. The pat ient is clinically stable in the last 24 hours. Repeat blood cultures have been sent. Stool cultur e for C. diff is pending. The patient's lactic acid level is within normal limits. Procalcitonin l evel is pending. Will continue the current antibiotic regimen and follow up with infectious disease . 2. End-stage renal disease. Plan for hemodialysis today for solute clearance, as the patient hypon atremic. Sodium level is 124. Will monitor closely. 3. Hyponatremia. Etiology is multifactorial. Will discontinue free water flushes. If repeat sodiu m level remains low, the patient will be started on dialysis. 4. Pulmonary hypertension. Continue sildenafil. 5. Anemia. Continue to monitor H and H levels. Continue Epogen. 6. Seizure disorder. Continue Keppra. 7. Decubitus wound. Continue wound care. 8. Diabetes. Continue Accu-Cheks and insulin sliding scale. 9. Dysphagia. Status post PEG. Continue tube feeding. 10. Chronic encephalopathy. No change. 11. Coronary artery disease. Continue medical management. 12. History of congestive heart failure, right-sided heart failure. Continue medical management. 13. History of cerebrovascular accident. 14. Ventilatory-dependent respiratory failure. Vent settings have been reviewed. ABG has been rev iewed. Continue to monitor. 15. Gastrointestinal and deep vein thrombosis prophylaxis. Continue PPI and heparin. Dictated By: RUDDY BUSTILLOS/ARNOLDO Conf#: [id number] DID#: [id number]
[2016-10-02 10:21] LABS: ANISOCYTOSIS 1+; POIKILOCYTOSIS 1+; POLYCHROMASIA 1+
[2016-10-02 10:22] LABS: BURR CELLS OCCASIONAL
[2016-10-02] MEDS: VORICONAZOLE 200 MG TAB PO SCH ×2 (11:00→21:04)
[2016-10-02] MEDS: SILDENAFIL 20 MG TAB PO SCH ×3 (11:00→21:00)
[2016-10-02] MEDS: APIXABAN 5 MG TABLET GTB SCH ×2 (11:00→21:04)
[2016-10-02] MEDS: MUPIROCIN 2% 22 GM OINT TOP SCH ×2 (11:01→21:05)
[2016-10-02] MEDS: LEVETIRACETAM IV 500 MG in DEXTROSE 5% 100 ML IVPB SCH ×2 (11:07→21:04)
--- NOTE | 2016-10-02 11:09 | CONS ---
Date/Time of Note Date/Time of Note DATE: 10/02/16 TIME: 11:09 Assessment/Plan Assessment/Plan Chief Complaint/Hosp Course ASSESSMENT: 1. Renal failure on dialysis. 2. Vent dependent respiratory failure. 3. Chronic obstructive pulmonary disease. 4. Atrial fibrillation. 5. Ascites, successful paracentesis done. 6. Dysphagia 7. G-tube site leakage and cellulitis, improving 8. Anemia. 9. Status post septic shock. 10. Diabetes mellitus. 11. Decubitus ulcer. 12. Congestive heart failure. 13. Seizure disorder. 14. pneumonia,s/p sepsis Plan continue antibiotics monitor WBC Reglan for gastroparesis Bactroban to g tube site. Routine G-tube site care appreciate wound nurse management of G-tube site Problems: Consultation Date/Type/Reason Admit Date/Time Sep 17, 2016 at 18:49 Type of Consultation: GI 24 HR Interval Summary Free Text/Dictation No fevers, chills, nausea, vomiting. No shortness of breath. The patient had hemodialysis yesterday and tolerated it well. Exam/Review of Systems Vital Signs Vitals Vital Signs Date Time Temp Pulse Resp B/P Pulse Ox O2 Delivery O2 Flow Rate FiO2 10/02/16 09:10 99 12 98 65 10/02/16 07:15 97.9 118/49 09/28/16 20:00 Mechanical Ventilator Intake and Output 10/01/16 10/01/16 10/02/16 15:00 23:00 07:00 Intake Total 350 ml 1385 ml 900 ml Output Total 1600 ml Balance 350 ml -215 ml 900 ml Exam Head: atraumatic, normocephalic Eyes: EOMI, nl conjunctiva, nl lids, nl sclera ENMT: mucosa pink and moist, nl external ears & nose, nl lips & teeth Neck: non-tender, supple Respiratory: clear to auscultation, normal air movement Cardiovascular: nl pulses, regular rate and rhythm Gastrointestinal: bowel sounds, non-tender, soft Results Result Diagram: 10/02/16 0550 10/02/16 0555 Results 24 hrs Laboratory Tests Test 10/01/16 11:24 10/01/16 11:52 10/01/16 12:05 10/01/16 17:50 Vancomycin Level Trough 14.8 Bedside Glucose 105 112 Alanine Aminotransferase (ALT/SGPT) 14 Albumin 2.9 L Alkaline Phosphatase 157 H Aspartate Amino Transf (AST/SGOT) 53 H Direct Bilirubin 0.00 Indirect Bilirubin 0.3 Total Bilirubin 0.3 Total Protein 6.3 Test 10/01/16 23:51 10/02/16 05:15 10/02/16 05:50 10/02/16 05:55 Bedside Glucose 101 108 Anisocytosis 1+ Basophils # 0.1 Basophils % 0.5 Blood Morphology Comment Eosinophils # 0.0 Eosinophils % 0.1 Hematocrit 31.3 L Hemoglobin 9.9 L Lymphocytes # 1.5 Lymphocytes % 7.4 L Mean Corpuscular Hemoglobin 30.3 Mean Corpuscular Hemoglobin Concent 31.8 L Mean Corpuscular Volume 95.4 Mean Platelet Volume 7.6 Monocytes # 1.8 H Monocytes % 8.9 Neutrophils # 17.1 H Neutrophils % 83.1 H Nucleated Red Blood Cells # 0.0 Nucleated Red Blood Cells % 0.0 Platelet Count 301 Polychromasia 1+ Red Blood Count 3.28 L Red Cell Distribution Width 18.4 H White Blood Count 20.6 #H Anion Gap 8 # Blood Urea Nitrogen 41 #H Calcium Level 8.7 Carbon Dioxide Level 30 Chloride Level 90 L Creatinine 1.93 H Glucose Level 103 Magnesium Level 2.1 Phosphorus Level 4.8 Potassium Level 4.2 Sodium Level 124 L Medications Medications Current Medications Levetiracetam/ Dextrose (Keppra Iv/D5W) 105 ml @ 420 mls/hr Q12 IVPB Last administered on 10/02/16at 11:07; Admin Dose 420 MLS/HR; Start 09/18/16 at 09: 00 Collagenase (Santyl) 1 applic DAILY TOP Last administered on 10/02/16at 09:00; Admin Dose 1 APPLIC; Start 09/18/16 at 09:00 Acetaminophen (Tylenol Liquid) 650 mg Q4H PRN NGT PAIN AND OR ELEVATED TEMP Last administered on 09/29/16at 12:07; Admin Dose 650 MG; Start 09/18/16 at 08: 00 Bisacodyl (Dulcolax Supp) 10 mg DAILY PRN [place] CONSTIPATION; Start 09/18/16 at 08:00 Mupirocin (Bactroban) Apply to bilateral nares ... BID TOP Last administered on 10/02/16at 11:01; Admin Dose 1 APPLIC; Start 11/10/16 at 09:00 Mirtazapine (Remeron) 7.5 mg HS GTB Last administered on 10/01/16at 21:01; Admin Dose 7.5 MG; Start 09/18/16 at 21:00 Ondansetron HCl (Zofran Inj) 4 mg Q4H PRN IV NAUSEA AND/OR VOMITING; Start 08/24 at 08:00 Morphine Sulfate (morphine) 2 mg Q3H PRN IV PAIN LEVEL 6-10 Last administered on 09/28/16at 12:25; Admin Dose 2 MG; Start 09/18/16 at 08:00 Lorazepam (Ativan) 0.5 mg Q3H PRN IV ANXIETY; Start 09/18/16 at 08:00 Amikacin Sulfate (Amikacin Iv Per Pharmacy) PER PHARMACY DOSING NOTE XX ; Start 09/18/16 at 13:00 Vancomycin HCl (Vanco Iv Per Pharmacy) PER PHARMACY DOSING NOTE XX ; Start 08/24 at 13:00 IV Flush (NS 10 ml) 10 ml PRN PRN IV IV PROTOCOL Last administered on at 06:01; Admin Dose 10 ML; Start 09/18/16 at 13:00 Sildenafil Citrate (Revatio) 20 mg TID PO Last administered on 10/02/16at 11:00 ; Admin Dose 20 MG; Start 09/19/16 at 09:00 Miscellaneous Information 1 ea NOTE XX ; Start 09/19/16 at 12:00 Glucose (Glutose) 15 gm Q15M PRN PO DECREASED GLUCOSE; Start 09/19/16 at 12:00 Glucose (Glutose) 22.5 gm Q15M PRN PO DECREASED GLUCOSE; Start 09/19/16 at 12: 00 Dextrose (D50w Syringe) 25 ml Q15M PRN IV DECREASED GLUCOSE; Start 09/19/16 at 12:00 Dextrose (D50w Syringe) 50 ml Q15M PRN IV DECREASED GLUCOSE; Start 09/19/16 at 12:00 Glucagon (Glucagen) 1 mg Q15M PRN IM DECREASED GLUCOSE; Start 09/19/16 at 12: 00 Glucose (Glutose) 15 gm Q15M PRN BUCCAL DECREASED GLUCOSE; Start 09/19/16 at 12:00 Voriconazole 200 mg 200 mg BID PO Last administered on 10/02/16at 11:00; Admin Dose 200 MG; Start 09/23/16 at 21:00 Vancomycin HCl (Vancocin) 250 ml @ 125 mls/hr Q96H IVPB Last administered on 10/01/16at 14:58; Admin Dose 125 MLS/HR; Start 09/23/16 at 13:00 Lansoprazole (Prevacid) 30 mg DAILY@06 PO Last administered on 10/02/16at 05:17 ; Admin Dose 30 MG; Start 09/27/16 at 06:00 Apixaban (Eliquis) 2.5 mg BID GTB Last administered on 10/02/16at 11:00; Admin Dose 2.5 MG; Start 09/30/16 at 09:00 Metoclopramide HCl (Reglan) 5 mg Q6 IV Last administered on 10/02/16at 05:17; Admin Dose 5 MG; Start 09/30/16 at 12:00 Insulin Aspart (Novolog Insulin Pen) NOVOLOG *MILD* ALGORI... Q6 SC ; Start at 12:00 Metronidazole (Flagyl) 500 mg Q8 PO Last administered on 10/02/16at 05:17; Admin Dose 500 MG; Start 10/01/16 at 14:30 CAMDEN FRITZ MD Oct 02, 2016 11:09
--- NOTE | 2016-10-02 11:15 | CONS ---
Date/Time of Note Date/Time of Note DATE: 10/02/16 TIME: 11:13 Consult Date/Type/Reason Admit Date/Time Sep 17, 2016 at 18:49 Type of Consultation: ID Subjective no changes, looks comfortable, no fevers Objective Vital Signs Date Time Temp Pulse Resp B/P Pulse Ox O2 Delivery O2 Flow Rate FiO2 10/02/16 09:10 99 12 98 65 10/02/16 07:15 97.9 118/49 09/28/16 20:00 Mechanical Ventilator Intake and Output 10/01/16 10/01/16 10/02/16 15:00 23:00 07:00 Intake Total 350 ml 1385 ml 900 ml Output Total 1600 ml Balance 350 ml -215 ml 900 ml Results/Medications Result Diagram: 10/02/16 0550 10/02/16 0555 Results 24 hrs Laboratory Tests Test 10/01/16 11:24 10/01/16 11:52 10/01/16 12:05 10/01/16 17:50 Vancomycin Level Trough 14.8 Bedside Glucose 105 112 Alanine Aminotransferase (ALT/SGPT) 14 Albumin 2.9 L Alkaline Phosphatase 157 H Aspartate Amino Transf (AST/SGOT) 53 H Direct Bilirubin 0.00 Indirect Bilirubin 0.3 Total Bilirubin 0.3 Total Protein 6.3 Test 10/01/16 23:51 10/02/16 05:15 10/02/16 05:50 10/02/16 05:55 Bedside Glucose 101 108 Anisocytosis 1+ Basophils # 0.1 Basophils % 0.5 Blood Morphology Comment Eosinophils # 0.0 Eosinophils % 0.1 Hematocrit 31.3 L Hemoglobin 9.9 L Lymphocytes # 1.5 Lymphocytes % 7.4 L Mean Corpuscular Hemoglobin 30.3 Mean Corpuscular Hemoglobin Concent 31.8 L Mean Corpuscular Volume 95.4 Mean Platelet Volume 7.6 Monocytes # 1.8 H Monocytes % 8.9 Neutrophils # 17.1 H Neutrophils % 83.1 H Nucleated Red Blood Cells # 0.0 Nucleated Red Blood Cells % 0.0 Platelet Count 301 Polychromasia 1+ Red Blood Count 3.28 L Red Cell Distribution Width 18.4 H White Blood Count 20.6 #H Anion Gap 8 # Blood Urea Nitrogen 41 #H Calcium Level 8.7 Carbon Dioxide Level 30 Chloride Level 90 L Creatinine 1.93 H Glucose Level 103 Magnesium Level 2.1 Phosphorus Level 4.8 Potassium Level 4.2 Sodium Level 124 L Medications Current Medications Levetiracetam/ Dextrose (Keppra Iv/D5W) 105 ml @ 420 mls/hr Q12 IVPB Last administered on 10/02/16at 11:07; Admin Dose 420 MLS/HR; Start 09/18/16 at 09: 00 Collagenase (Santyl) 1 applic DAILY TOP Last administered on 10/02/16at 09:00; Admin Dose 1 APPLIC; Start 09/18/16 at 09:00 Acetaminophen (Tylenol Liquid) 650 mg Q4H PRN NGT PAIN AND OR ELEVATED TEMP Last administered on 09/29/16at 12:07; Admin Dose 650 MG; Start 09/18/16 at 08: 00 Bisacodyl (Dulcolax Supp) 10 mg DAILY PRN [place] CONSTIPATION; Start 09/18/16 at 08:00 Mupirocin (Bactroban) Apply to bilateral nares ... BID TOP Last administered on 10/02/16at 11:01; Admin Dose 1 APPLIC; Start 09/18/16 at 09:00 Mirtazapine (Remeron) 7.5 mg HS GTB Last administered on 10/01/16at 21:01; Admin Dose 7.5 MG; Start 09/18/16 at 21:00 Ondansetron HCl (Zofran Inj) 4 mg Q4H PRN IV NAUSEA AND/OR VOMITING; Start 08/24 at 08:00 Morphine Sulfate (morphine) 2 mg Q3H PRN IV PAIN LEVEL 6-10 Last administered on 09/28/16at 12:25; Admin Dose 2 MG; Start 09/18/16 at 08:00 Lorazepam (Ativan) 0.5 mg Q3H PRN IV ANXIETY; Start 09/18/16 at 08:00 Amikacin Sulfate (Amikacin Iv Per Pharmacy) PER PHARMACY DOSING NOTE XX ; Start 09/18/16 at 13:00 Vancomycin HCl (Vanco Iv Per Pharmacy) PER PHARMACY DOSING NOTE XX ; Start 08/24 at 13:00 IV Flush (NS 10 ml) 10 ml PRN PRN IV IV PROTOCOL Last administered on at 06:01; Admin Dose 10 ML; Start 09/18/16 at 13:00 Sildenafil Citrate (Revatio) 20 mg TID PO Last administered on 10/02/16at 11:00 ; Admin Dose 20 MG; Start 09/19/16 at 09:00 Miscellaneous Information 1 ea NOTE XX ; Start 09/19/16 at 12:00 Glucose (Glutose) 15 gm Q15M PRN PO DECREASED GLUCOSE; Start 09/19/16 at 12:00 Glucose (Glutose) 22.5 gm Q15M PRN PO DECREASED GLUCOSE; Start 09/19/16 at 12: 00 Dextrose (D50w Syringe) 25 ml Q15M PRN IV DECREASED GLUCOSE; Start 09/19/16 at 12:00 Dextrose (D50w Syringe) 50 ml Q15M PRN IV DECREASED GLUCOSE; Start 09/19/16 at 12:00 Glucagon (Glucagen) 1 mg Q15M PRN IM DECREASED GLUCOSE; Start 09/19/16 at 12: 00 Glucose (Glutose) 15 gm Q15M PRN BUCCAL DECREASED GLUCOSE; Start 09/19/16 at 12:00 Voriconazole 200 mg 200 mg BID PO Last administered on 10/02/16at 11:00; Admin Dose 200 MG; Start 09/23/16 at 21:00 Vancomycin HCl (Vancocin) 250 ml @ 125 mls/hr Q96H IVPB Last administered on 10/01/16at 14:58; Admin Dose 125 MLS/HR; Start 09/23/16 at 13:00 Lansoprazole (Prevacid) 30 mg DAILY@06 PO Last administered on 10/02/16at 05:17 ; Admin Dose 30 MG; Start 09/27/16 at 06:00 Apixaban (Eliquis) 2.5 mg BID GTB Last administered on 10/02/16at 11:00; Admin Dose 2.5 MG; Start 09/30/16 at 09:00 Metoclopramide HCl (Reglan) 5 mg Q6 IV Last administered on 10/02/16at 05:17; Admin Dose 5 MG; Start 09/30/16 at 12:00 Insulin Aspart (Novolog Insulin Pen) NOVOLOG *MILD* ALGORI... Q6 SC ; Start at 12:00 Metronidazole (Flagyl) 500 mg Q8 PO Last administered on 10/02/16at 05:17; Admin Dose 500 MG; Start 10/01/16 at 14:30 Assessment/Plan Chief Complaint/Hosp Course MICROBIOLOGY: Endotracheal aspirate growing multidrug resistant Pseudomonas. Blood cultures negative, wound culture of her sacrum growing MRSA. Urine culture growing Kelly glabrata. INDWELLING: trach, PEG, RIJ Perm-A-Cath, Left upper extremity PICC line placed on 09/18/2016. ANTIMICROBIALS: 1. Amikacin. 2. Vancomycin. 3. Vfend 4. Flagyl PHYSICAL EXAMINATION: GENERAL: Fragile, chronically ill-appearing, elderly woman who is lying comfortably in bed. HEENT: Head atraumatic, normocephalic. Sclerae anicteric. Buccal mucosa dry. NECK: Supple. Tracheostomy present. CHEST: Rise symmetrical. Breath sounds diminished to bases. HEART: S1, S2. ABDOMEN: Soft, bowel tones present. EXTREMITIES: Without cyanosis. ASSESSMENT: 1. Sepsis, status post shock. 2. Healthcare-associated pneumonia with parapneumonic pleural effusion and sputum culture growing multi-drug resistant Pseudomonas aeruginosa. 3. Methicillin-resistant Staphylococcus aureus infected decubitus. 4. Kelly glabrata urinary tract infection. 5. Methicillin-resistant Staphylococcus aureus nares colonization. 6. End-stage renal disease, hemodialysis dependent. 7. History of cerebrovascular accident. 8. Ascites==> s/p paracentesis 09/24===> cx negative 9. ALLERGY TO PENICILLIN AND SULFA. PLAN: Clinically unchanged, leukocytosis persist but slightly better, started on empiric Flagyl yesterday, pending repeat bld cx with HD, continue abx, topical Bactroban to nares and local wound care DW staff Problems: RAISSA ROA NP Oct 02, 2016 11:15
--- NOTE | 2016-10-02 13:15 | CONS ---
Date/Time of Note Date/Time of Note DATE: 10/02/16 TIME: 13:15 Consult Date/Type/Reason Admit Date/Time Sep 17, 2016 at 18:49 Type of Consultation: pulmonary Subjective Patient stable no new events Objective Vital Signs Date Time Temp Pulse Resp B/P Pulse Ox O2 Delivery O2 Flow Rate FiO2 10/02/16 12:44 99 10/02/16 11:20 97.9 20 115/47 95 10/02/16 11:10 60 09/28/16 20:00 Mechanical Ventilator Intake and Output 10/01/16 10/01/16 10/02/16 15:00 23:00 07:00 Intake Total 350 ml 1385 ml 900 ml Output Total 1600 ml Balance 350 ml -215 ml 900 ml PHYSICAL EXAMINATION: VITAL SIGNS: As above NECK: Supple. No JVD or lymphadenopathy. CARDIAC: S1, S2, no added sounds or murmurs. CHEST: Diminished air entry bilaterally. ABDOMEN: Soft, nontender. No guarding or rebound. EXTREMITIES: No cyanosis, clubbing or edema. NEUROLOGIC: Generalized weakness. Results/Medications Result Diagram: 10/02/16 0550 10/02/16 0840 Results 24 hrs Laboratory Tests Test 10/01/16 17:50 10/01/16 23:51 10/02/16 05:15 10/02/16 05:50 Bedside Glucose 112 101 108 Anisocytosis 1+ Basophils # 0.1 Basophils % 0.5 Blood Morphology Comment Eosinophils # 0.0 Eosinophils % 0.1 Hematocrit 31.3 L Hemoglobin 9.9 L Lymphocytes # 1.5 Lymphocytes % 7.4 L Mean Corpuscular Hemoglobin 30.3 Mean Corpuscular Hemoglobin Concent 31.8 L Mean Corpuscular Volume 95.4 Mean Platelet Volume 7.6 Monocytes # 1.8 H Monocytes % 8.9 Neutrophils # 17.1 H Neutrophils % 83.1 H Nucleated Red Blood Cells # 0.0 Nucleated Red Blood Cells % 0.0 Platelet Count 301 Polychromasia 1+ Red Blood Count 3.28 L Red Cell Distribution Width 18.4 H White Blood Count 20.6 #H Test 10/02/16 05:55 10/02/16 08:40 Anion Gap 8 # Blood Urea Nitrogen 41 #H Calcium Level 8.7 Carbon Dioxide Level 30 Chloride Level 90 L Creatinine 1.93 H Glucose Level 103 Magnesium Level 2.1 Phosphorus Level 4.8 Potassium Level 4.2 Sodium Level 124 L 124 L Medications Current Medications Levetiracetam/ Dextrose (Keppra Iv/D5W) 105 ml @ 420 mls/hr Q12 IVPB Last administered on 10/02/16at 11:07; Admin Dose 420 MLS/HR; Start 09/18/16 at 09: 00 Collagenase (Santyl) 1 applic DAILY TOP Last administered on 10/02/16at 09:00; Admin Dose 1 APPLIC; Start 09/18/16 at 09:00 Acetaminophen (Tylenol Liquid) 650 mg Q4H PRN NGT PAIN AND OR ELEVATED TEMP Last administered on 09/29/16at 12:07; Admin Dose 650 MG; Start 09/18/16 at 08: 00 Bisacodyl (Dulcolax Supp) 10 mg DAILY PRN [place] CONSTIPATION; Start 09/18/16 at 08:00 Mupirocin (Bactroban) Apply to bilateral nares ... BID TOP Last administered on 10/02/16at 11:01; Admin Dose 1 APPLIC; Start 09/18/16 at 09:00 Mirtazapine (Remeron) 7.5 mg HS GTB Last administered on 10/01/16at 21:01; Admin Dose 7.5 MG; Start 09/18/16 at 21:00 Ondansetron HCl (Zofran Inj) 4 mg Q4H PRN IV NAUSEA AND/OR VOMITING; Start 08/24 at 08:00 Morphine Sulfate (morphine) 2 mg Q3H PRN IV PAIN LEVEL 6-10 Last administered on 09/28/16at 12:25; Admin Dose 2 MG; Start 09/18/16 at 08:00 Lorazepam (Ativan) 0.5 mg Q3H PRN IV ANXIETY; Start 09/18/16 at 08:00 Amikacin Sulfate (Amikacin Iv Per Pharmacy) PER PHARMACY DOSING NOTE XX ; Start 09/18/16 at 13:00 Vancomycin HCl (Vanco Iv Per Pharmacy) PER PHARMACY DOSING NOTE XX ; Start 08/24 at 13:00 IV Flush (NS 10 ml) 10 ml PRN PRN IV IV PROTOCOL Last administered on at 06:01; Admin Dose 10 ML; Start 09/18/16 at 13:00 Sildenafil Citrate (Revatio) 20 mg TID PO Last administered on 10/02/16at 11:00 ; Admin Dose 20 MG; Start 09/19/16 at 09:00 Miscellaneous Information 1 ea NOTE XX ; Start 09/19/16 at 12:00 Glucose (Glutose) 15 gm Q15M PRN PO DECREASED GLUCOSE; Start 09/19/16 at 12:00 Glucose (Glutose) 22.5 gm Q15M PRN PO DECREASED GLUCOSE; Start 09/19/16 at 12: 00 Dextrose (D50w Syringe) 25 ml Q15M PRN IV DECREASED GLUCOSE; Start 09/19/16 at 12:00 Dextrose (D50w Syringe) 50 ml Q15M PRN IV DECREASED GLUCOSE; Start 09/19/16 at 12:00 Glucagon (Glucagen) 1 mg Q15M PRN IM DECREASED GLUCOSE; Start 09/19/16 at 12: 00 Glucose (Glutose) 15 gm Q15M PRN BUCCAL DECREASED GLUCOSE; Start 09/19/16 at 12:00 Voriconazole 200 mg 200 mg BID PO Last administered on 10/02/16at 11:00; Admin Dose 200 MG; Start 09/23/16 at 21:00 Vancomycin HCl (Vancocin) 250 ml @ 125 mls/hr Q96H IVPB Last administered on 10/01/16at 14:58; Admin Dose 125 MLS/HR; Start 09/23/16 at 13:00 Lansoprazole (Prevacid) 30 mg DAILY@06 PO Last administered on 10/02/16at 05:17 ; Admin Dose 30 MG; Start 09/27/16 at 06:00 Apixaban (Eliquis) 2.5 mg BID GTB Last administered on 10/02/16at 11:00; Admin Dose 2.5 MG; Start 09/30/16 at 09:00 Metoclopramide HCl (Reglan) 5 mg Q6 IV Last administered on 10/02/16at 05:17; Admin Dose 5 MG; Start 09/30/16 at 12:00 Insulin Aspart (Novolog Insulin Pen) NOVOLOG *MILD* ALGORI... Q6 SC ; Start at 12:00 Metronidazole (Flagyl) 500 mg Q8 PO Last administered on 10/02/16at 05:17; Admin Dose 500 MG; Start 10/01/16 at 14:30 Assessment/Plan Chief Complaint/Hosp Course IMPRESSION AND PLAN: 1. Vent dependent respiratory failure. Persistent leukocytosis 2. Pleural effusion, possible healthcare-associated pneumonia. 3. Pulmonary hypertension. 4. History of cerebrovascular accident. 5. History of encephalopathy. 6. Dysfunctional G-tube. Recommendations 1. Continue antibiotics 2. Continue ventilator 3. Tube feeding as tolerated 4. ID recommendations 5. Renal recommendations Overall prognosis guarded consider palliative care consult Problems: JULIA HERNANDEZ MD, [facility] Oct 02, 2016 13:15
[2016-10-02] MEDS: MIRTAZAPINE 15 MG TAB GTB SCH (21:04)
[2016-10-03] VITALS (31 sets, daily range): BP systolic 95–149; BP diastolic 41–67; PULSE 99–120; RESP 12–22
[2016-10-03] MEDS: IPRATROPIUM (HFA) 12.9 GM INHALER INH SCH ×6 (01:52→20:09)
[2016-10-03] MEDS: LEVALBUTEROL (HFA) 15 GM INHALER INH SCH ×6 (01:52→20:09)
[2016-10-03] MEDS: INSULIN ASPART [NOVOLOG] 3 ML PEN SC SCH ×3 (05:45→17:47)
[2016-10-03] MEDS: METOCLOPRAMIDE 10 MG INJ IV SCH ×3 (05:45→17:24)
[2016-10-03] MEDS: LANSOPRAZOLE 30 MG CAP PO SCH (05:45)
[2016-10-03] MEDS: metroNIDAZOLE 500 MG TAB PO SCH ×3 (05:45→21:41)
[2016-10-03] MEDS: MUPIROCIN 2% 22 GM OINT TOP SCH ×2 (09:00→21:42)
[2016-10-03] MEDS ORDERED: DIGOXIN 500 MCG INJ IV ONE (09:00)
[2016-10-03] MEDS: VORICONAZOLE 200 MG TAB PO SCH ×2 (09:00→21:41)
[2016-10-03] MEDS: APIXABAN 5 MG TABLET GTB SCH ×2 (09:00→21:42)
[2016-10-03] MEDS: SILDENAFIL 20 MG TAB PO SCH ×3 (09:00→21:48)
--- NOTE | 2016-10-03 09:13 | PN ---
DATE: SUBJECTIVE: The patient remains stable, no acute events noted. No hemoptysis, hematemesis, hematoc hezia. The patient had hemodialysis yesterday, tolerated well. OBJECTIVE: VITAL SIGNS: Blood pressure 125/50, respiration 18, pulse 115, temperature 97.9. HEENT: Head is normocephalic. NECK: Supple. HEART: Regular rate. LUNGS: Show diminished breath sounds at the base. ABDOMEN: Soft, nontender to palpation. No rebound or guarding. EXTREMITIES: Negative for clubbing, cyanosis, no edema. DERMATOLOGIC: No rashes. MUSCULOSKELETAL: No joint effusions. NEUROLOGIC: No change in exam. MEDICATIONS: The patient's medication reviewed. LABORATORY DATA: From October 03 is currently pending. ASSESSMENT AND PLAN: 1. Sepsis, status post shock, etiology is secondary to pneumonia, decubitus wound. The patient rem ains on antimicrobial antibiotic therapy. The patient has been afebrile now for 48 hours. Repeat c ultures have been sent and negative to date. Procalcitonin level is pending. Lactic acid level has been within normal limits. Will current antibiotic regimen. Follow up infectious disease. 2. Leukocytosis, etiology may be multifactorial secondary to infectious versus reactive. White cou nt has been trending down. Continue to monitor. Continue current treatment plan as stated above. 3. End-stage renal disease. The patient had hemodialysis yesterday for hyponatremia and solute chinmay arance. Will have dialysis again today for 3 hours 3K bath, calcium 2.5, ultrafiltrate as tolerated . 4. Hypernatremia. multifactorial secondary to end-stage renal disease, free water flushes. Will continue to hold all free water flushes, continue dialysis on a 140 sodium bath. 5. Pulmonary hypertension. Continue sildenafil. 6. Anemia. Continue to monitor H and H levels, continue Epogen. 7. Seizure disorder. Continue Keppra. 8. Decubitus wound. Continue wound care. 9. Diabetes. Continue Accu-Cheks and sliding scale. 10. Dysphagia. PEG tube, tube feeding. 11. Chronic encephalopathy. No change. 12. Coronary artery disease. Continue medical management. 13. History of congestive heart failure, right-sided heart failure. Continue current medical manag ement. 14. History of cerebrovascular accident. 15. Ventilator dependent respiratory failure. Vent settings have been reviewed. ABG has been revi ewed. Continue to monitor. 16. Gastrointestinal and deep venous thrombosis prophylaxis. Continue proton pump inhibitor, hepar in. Dictated By: RUDDY BUSTILLOS/ARNOLDO Conf#: [id number] DID#: [id number]
[2016-10-03] MEDS: BUDESONIDE (NEB) 0.5MG/2ML AMP HHN SCH ×2 (09:17→20:09)
[2016-10-03 09:27] LABS: BASOPHIL # 0.1 10^3/ul (0.0-0.1); BASOPHILS % 0.6 % (0.0-2.0); EOSINOPHILS % 0.3 % (0.0-7.0); HEMATOCRIT 31.8 % (37.0-47.0); HEMOGLOBIN 9.8 g/dl (12.0-16.0); LYMPHOCYTES # 1.1 10^3/ul (0.8-2.9); LYMPHOCYTES % 6.9 % (15.0-51.0); MEAN CORPUSCULAR HGB CONC 30.9 g/dl (32.0-37.0); MEAN CORPUSCULAR VOLUME 97.2 fl (82.0-101.0); MEAN PLATELET VOLUME 7.1 fl (7.4-10.4); MONOCYTE # 1.1 10^3/ul (0.3-0.9); MONOCYTES % 6.8 % (0.0-11.0); NEUTROPHIL # 13.9 10^3/ul (1.6-7.5); NEUTROPHILS % 85.4 % (39.0-77.0); PLATELET COUNT 306 10^3/UL (140-440); RED BLOOD COUNT 3.27 10^6/ul (4.20-5.40); RED CELL DISTRIBUTION WIDTH 18.2 % (11.5-14.5); UNCORRECTED WBC 16.3 10^3/ul (4.8-10.8); WHITE BLOOD COUNT 16.3 10^3/ul (4.8-10.8)
[2016-10-03 09:30] LABS: CONDITION 1; LH ANALYZER COMMENTS 1
[2016-10-03 09:35] LABS: POTASSIUM 4.6 mmol/L (3.5-5.1)
[2016-10-03 09:38] LABS: CREATININE 1.91 mg/dl (0.44-1.00)
[2016-10-03 09:39] LABS: CALCIUM 8.9 mg/dl (8.4-10.2)
--- NOTE | 2016-10-03 09:52 | PN ---
DATE: 10/03/2016 CARDIOLOGY FOLLOWUP SUBJECTIVE: Discussed with the staff, discussed with the patient's son at bedside. Rhythm strip wa s reviewed. The patient remains in atrial fibrillation, heart rate is slightly elevated around 100. She just said that she is not feeling well, but could not explain any pain to me. MEDICATIONS: Reviewed as per medication reconciliation, was personally reviewed. PHYSICAL EXAMINATION: VITAL SIGNS: Temperature 97.9, heart rate of 102, blood pressure 125/70, respiratory rate of 12, sa turating 97%. HEENT: Normocephalic, atraumatic. Pupils are equal. CARDIOVASCULAR: Irregularly irregular. Tachycardic. PULMONARY: With no wheezes, diffuse rhonchi. GASTROINTESTINAL: Soft. No rebound or guarding. Mild tenderness. EXTREMITIES: With trivial edema. NEUROLOGIC: Awake, responds appropriately. PSYCHIATRIC: Appeared to be calm and pleasant. LABORATORY: Sodium 124, potassium 4.2, BUN of 41, creatinine 1.92, glucose 103. WBC of 20.6, hemog lobin 9.9, platelets of 301. ASSESSMENT AND PLAN: 1. Lower extremity respiratory failure. 2. Atrial fibrillation, chronic. 3. Sepsis. 4. Dysphagia, status post PEG placement. 5. Renal failure, on dialysis. 6. Possible atrial septal defect or patent foramen ovale. 7. History of seizure disorder. 8. Dysphagia. 9. Anemia. 10. . RECOMMENDATIONS: Eliquis will be continued. I will give one dose of digoxin now to control the hea rt rate better. Antibiotic management as per internal medicine and pulmonary. Dictated By: AMANDA LARA/ARNOLDO Conf#: [id number] DID#: [id number] CC: RUDDY GEE DO;*EndCC*
[2016-10-03] MEDS: LEVETIRACETAM IV 500 MG in DEXTROSE 5% 100 ML IVPB SCH ×2 (10:09→21:48)
--- NOTE | 2016-10-03 13:11 | CONS ---
Date/Time of Note Date/Time of Note DATE: 10/03/16 TIME: 13:09 Consult Date/Type/Reason Admit Date/Time Sep 17, 2016 at 18:49 Type of Consultation: pulmonary Subjective Comfortable this morning no new events Objective Vital Signs Date Time Temp Pulse Resp B/P Pulse Ox O2 Delivery O2 Flow Rate FiO2 10/03/16 11:58 98.4 111 20 107/46 99 10/03/16 11:55 60 Intake and Output 10/02/16 10/02/16 10/03/16 15:00 23:00 07:00 Intake Total 505 ml 660 ml Output Total 1900 ml Balance -1395 ml 660 ml Results/Medications Result Diagram: 10/03/16 0830 10/03/16 0830 Results 24 hrs Laboratory Tests Test 10/02/16 17:55 10/02/16 23:30 10/03/16 05:44 10/03/16 08:30 Bedside Glucose 170 119 115 Anion Gap 9 Basophils # 0.1 Basophils % 0.6 Blood Morphology Comment Blood Urea Nitrogen 44 H Calcium Level 8.9 Carbon Dioxide Level 32 H Chloride Level 92 L Creatinine 1.91 H Eosinophils # 0.0 Eosinophils % 0.3 Glucose Level 105 Hematocrit 31.8 L Hemoglobin 9.8 L Lymphocytes # 1.1 Lymphocytes % 6.9 L Mean Corpuscular Hemoglobin 30.0 Mean Corpuscular Hemoglobin Concent 30.9 L Mean Corpuscular Volume 97.2 Mean Platelet Volume 7.1 L Monocytes # 1.1 H Monocytes % 6.8 Neutrophils # 13.9 H Neutrophils % 85.4 H Nucleated Red Blood Cells # 0.0 Nucleated Red Blood Cells % 0.0 Platelet Count 306 Potassium Level 4.6 Red Blood Count 3.27 L Red Cell Distribution Width 18.2 H Sodium Level 128 L White Blood Count 16.3 #H Test 10/03/16 12:31 Bedside Glucose 144 Medications Current Medications Levetiracetam/ Dextrose (Keppra Iv/D5W) 105 ml @ 420 mls/hr Q12 IVPB Last administered on 10/03/16at 10:09; Admin Dose 420 MLS/HR; Start 09/18/16 at 09: 00 Collagenase (Santyl) 1 applic DAILY TOP Last administered on 10/02/16at 09:00; Admin Dose 1 APPLIC; Start 09/18/16 at 09:00 Acetaminophen (Tylenol Liquid) 650 mg Q4H PRN NGT PAIN AND OR ELEVATED TEMP Last administered on 09/29/16at 12:07; Admin Dose 650 MG; Start 09/18/16 at 08: 00 Bisacodyl (Dulcolax Supp) 10 mg DAILY PRN [place]STIPATION; Start 09/18/16 at 08:00 Mupirocin (Bactroban) Apply to bilateral nares ... BID TOP Last administered on 10/02/16at 21:05; Admin Dose 1 APPLIC; Start 09/18/16 at 09:00 Mirtazapine (Remeron) 7.5 mg HS GTB Last administered on 10/02/16at 21:04; Admin Dose 7.5 MG; Start 09/18/16 at 21:00 Ondansetron HCl (Zofran Inj) 4 mg Q4H PRN IV NAUSEA AND/OR VOMITING; Start 08/24 at 08:00 Morphine Sulfate (morphine) 2 mg Q3H PRN IV PAIN LEVEL 6-10 Last administered on 09/28/16at 12:25; Admin Dose 2 MG; Start 09/18/16 at 08:00 Lorazepam (Ativan) 0.5 mg Q3H PRN IV ANXIETY; Start 09/18/16 at 08:00 Amikacin Sulfate (Amikacin Iv Per Pharmacy) PER PHARMACY DOSING NOTE XX ; Start 09/18/16 at 13:00 Vancomycin HCl (Vanco Iv Per Pharmacy) PER PHARMACY DOSING NOTE XX ; Start 08/24 at 13:00 IV Flush (NS 10 ml) 10 ml PRN PRN IV IV PROTOCOL Last administered on at 06:01; Admin Dose 10 ML; Start 09/18/16 at 13:00 Sildenafil Citrate (Revatio) 20 mg TID PO Last administered on 10/02/16at 18:09 ; Admin Dose 20 MG; Start 09/19/16 at 09:00 Miscellaneous Information 1 ea NOTE XX ; Start 09/19/16 at 12:00 Glucose (Glutose) 15 gm Q15M PRN PO DECREASED GLUCOSE; Start 09/19/16 at 12:00 Glucose (Glutose) 22.5 gm Q15M PRN PO DECREASED GLUCOSE; Start 09/19/16 at 12: 00 Dextrose (D50w Syringe) 25 ml Q15M PRN IV DECREASED GLUCOSE; Start 09/19/16 at 12:00 Dextrose (D50w Syringe) 50 ml Q15M PRN IV DECREASED GLUCOSE; Start 09/19/16 at 12:00 Glucagon (Glucagen) 1 mg Q15M PRN IM DECREASED GLUCOSE; Start 09/19/16 at 12: 00 Glucose (Glutose) 15 gm Q15M PRN BUCCAL DECREASED GLUCOSE; Start 09/19/16 at 12:00 Voriconazole 200 mg 200 mg BID PO Last administered on 10/03/16at 09:00; Admin Dose 200 MG; Start 09/23/16 at 21:00 Vancomycin HCl (Vancocin) 250 ml @ 125 mls/hr Q96H IVPB Last administered on 10/01/16at 14:58; Admin Dose 125 MLS/HR; Start 09/23/16 at 13:00 Lansoprazole (Prevacid) 30 mg DAILY@06 PO Last administered on 10/03/16at 05:45 ; Admin Dose 30 MG; Start 09/27/16 at 06:00 Apixaban (Eliquis) 2.5 mg BID GTB Last administered on 10/03/16at 09:00; Admin Dose 2.5 MG; Start 09/30/16 at 09:00 Metoclopramide HCl (Reglan) 5 mg Q6 IV Last administered on 10/03/16at 12:00; Admin Dose 5 MG; Start 09/30/16 at 12:00 Insulin Aspart (Novolog Insulin Pen) NOVOLOG *MILD* ALGORI... Q6 SC Last administered on 10/02/16at 18:01; Admin Dose 1 UNIT; Start 09/30/16 at 12:00 Metronidazole (Flagyl) 500 mg Q8 PO Last administered on 10/03/16 05:45; Admin Dose 500 MG; Start 10/01/16 at 14:30 Assessment/Plan Chief Complaint/Hosp Course IMPRESSION AND PLAN: 1. Vent dependent respiratory failure. Persistent leukocytosis 2. Pleural effusion, possible healthcare-associated pneumonia. 3. Pulmonary hypertension. 4. History of cerebrovascular accident. 5. History of encephalopathy. 6. Dysfunctional G-tube. Recommendations 1. Continue antibiotics 2. Continue ventilator 3. Tube feeding as tolerated 4. ID recommendations 5. Renal recommendations Overall prognosis guarded consider palliative care consult Problems: JULIA HERNANDEZ MD, [facility] Oct 03, 2016 13:11
--- NOTE | 2016-10-03 15:13 | CONS ---
Date/Time of Note Date/Time of Note DATE: 10/03/16 TIME: 15:11 Consult Date/Type/Reason Admit Date/Time Sep 17, 2016 at 18:49 Type of Consultation: id Subjective no changes, awake, noncommunicative, afebrile, nad Objective Vital Signs Date Time Temp Pulse Resp B/P Pulse Ox O2 Delivery O2 Flow Rate FiO2 10/03/16 13:37 107 10/03/16 13:10 14 60 10/03/16 13:10 96 10/03/16 11:58 98.4 107/46 Intake and Output 10/02/16 10/02/16 10/03/16 15:00 23:00 07:00 Intake Total 505 ml 660 ml Output Total 1900 ml Balance -1395 ml 660 ml Results/Medications Result Diagram: 10/03/16 0830 10/03/16 0830 Results 24 hrs Laboratory Tests Test 10/02/16 17:55 10/02/16 23:30 10/03/16 05:44 10/03/16 08:30 Bedside Glucose 170 119 115 Anion Gap 9 Basophils # 0.1 Basophils % 0.6 Blood Morphology Comment Blood Urea Nitrogen 44 H Calcium Level 8.9 Carbon Dioxide Level 32 H Chloride Level 92 L Creatinine 1.91 H Eosinophils # 0.0 Eosinophils % 0.3 Glucose Level 105 Hematocrit 31.8 L Hemoglobin 9.8 L Lymphocytes # 1.1 Lymphocytes % 6.9 L Mean Corpuscular Hemoglobin 30.0 Mean Corpuscular Hemoglobin Concent 30.9 L Mean Corpuscular Volume 97.2 Mean Platelet Volume 7.1 L Monocytes # 1.1 H Monocytes % 6.8 Neutrophils # 13.9 H Neutrophils % 85.4 H Nucleated Red Blood Cells # 0.0 Nucleated Red Blood Cells % 0.0 Platelet Count 306 Potassium Level 4.6 Red Blood Count 3.27 L Red Cell Distribution Width 18.2 H Sodium Level 128 L White Blood Count 16.3 #H Test 10/03/16 12:31 Bedside Glucose 144 Medications Current Medications Levetiracetam/ Dextrose (Keppra Iv/D5W) 105 ml @ 420 mls/hr Q12 IVPB Last administered on 10/03/16at 10:09; Admin Dose 420 MLS/HR; Start 09/18/16 at 09: 00 Collagenase (Santyl) 1 applic DAILY TOP Last administered on 10/02/16at 09:00; Admin Dose 1 APPLIC; Start 09/18/16 at 09:00 Acetaminophen (Tylenol Liquid) 650 mg Q4H PRN NGT PAIN AND OR ELEVATED TEMP Last administered on 09/29/16at 12:07; Admin Dose 650 MG; Start 09/18/16 at 08: 00 Bisacodyl (Dulcolax Supp) 10 mg DAILY PRN [place] CONSTIPATION; Start 09/18/16 at 08:00 Mupirocin (Bactroban) Apply to bilateral nares ... BID TOP Last administered on 10/02/16at 21:05; Admin Dose 1 APPLIC; Start 09/18/16 at 09:00 Mirtazapine (Remeron) 7.5 mg HS GTB Last administered on 10/02/16at 21:04; Admin Dose 7.5 MG; Start 09/18/16 at 21:00 Ondansetron HCl (Zofran Inj) 4 mg Q4H PRN IV NAUSEA AND/OR VOMITING; Start 08/24 at 08:00 Morphine Sulfate (morphine) 2 mg Q3H PRN IV PAIN LEVEL 6-10 Last administered on 09/28/16at 12:25; Admin Dose 2 MG; Start 09/18/16 at 08:00 Lorazepam (Ativan) 0.5 mg Q3H PRN IV ANXIETY; Start 09/18/16 at 08:00 Amikacin Sulfate (Amikacin Iv Per Pharmacy) PER PHARMACY DOSING NOTE XX ; Start 09/18/16 at 13:00 Vancomycin HCl (Vanco Iv Per Pharmacy) PER PHARMACY DOSING NOTE XX ; Start 08/24 at 13:00 IV Flush (NS 10 ml) 10 ml PRN PRN IV IV PROTOCOL Last administered on at 06:01; Admin Dose 10 ML; Start 09/18/16 at 13:00 Sildenafil Citrate (Revatio) 20 mg TID PO Last administered on 10/02/16at 18:09 ; Admin Dose 20 MG; Start 09/19/16 at 09:00 Miscellaneous Information 1 ea NOTE XX ; Start 09/19/16 at 12:00 Glucose (Glutose) 15 gm Q15M PRN PO DECREASED GLUCOSE; Start 09/19/16 at 12:00 Glucose (Glutose) 22.5 gm Q15M PRN PO DECREASED GLUCOSE; Start 09/19/16 at 12: 00 Dextrose (D50w Syringe) 25 ml Q15M PRN IV DECREASED GLUCOSE; Start 09/19/16 at 12:00 Dextrose (D50w Syringe) 50 ml Q15M PRN IV DECREASED GLUCOSE; Start 09/19/16 at 12:00 Glucagon (Glucagen) 1 mg Q15M PRN IM DECREASED GLUCOSE; Start 09/19/16 at 12: 00 Glucose (Glutose) 15 gm Q15M PRN BUCCAL DECREASED GLUCOSE; Start 09/19/16 at 12:00 Voriconazole 200 mg 200 mg BID PO Last administered on 10/03/16at 09:00; Admin Dose 200 MG; Start 09/23/16 at 21:00 Vancomycin HCl (Vancocin) 250 ml @ 125 mls/hr Q96H IVPB Last administered on 10/01/16at 14:58; Admin Dose 125 MLS/HR; Start 09/23/16 at 13:00 Lansoprazole (Prevacid) 30 mg DAILY@06 PO Last administered on 10/03/16at 05:45 ; Admin Dose 30 MG; Start 09/27/16 at 06:00 Apixaban (Eliquis) 2.5 mg BID GTB Last administered on 10/03/16at 09:00; Admin Dose 2.5 MG; Start 09/30/16 at 09:00 Metoclopramide HCl (Reglan) 5 mg Q6 IV Last administered on 10/03/16at 12:00; Admin Dose 5 MG; Start 09/30/16 at 12:00 Insulin Aspart (Novolog Insulin Pen) NOVOLOG *MILD* ALGORI... Q6 SC Last administered on 10/03/16at 13:16; Admin Dose 1 UNIT; Start 09/30/16 at 12:00 Metronidazole (Flagyl) 500 mg Q8 PO Last administered on 10/03/16at 05:45; Admin Dose 500 MG; Start 10/01/16 at 14:30 Assessment/Plan Chief Complaint/Hosp Course MICROBIOLOGY: Endotracheal aspirate growing multidrug resistant Pseudomonas. Blood cultures negative, wound culture of her sacrum growing MRSA. Urine culture growing Kelly glabrata. INDWELLING: trach, PEG, RIJ Perm-A-Cath, Left upper extremity PICC line placed on 09/18/2016. ANTIMICROBIALS: 1. Amikacin. 2. Vancomycin. 3. Vfend 4. Flagyl PHYSICAL EXAMINATION: GENERAL: Fragile, chronically ill-appearing, elderly woman who is lying comfortably in bed. HEENT: Head atraumatic, normocephalic. Sclerae anicteric. Buccal mucosa dry. NECK: Supple. Tracheostomy present. CHEST: Rise symmetrical. Breath sounds diminished to bases. HEART: S1, S2. ABDOMEN: Soft, bowel tones present. EXTREMITIES: Without cyanosis. ASSESSMENT: 1. Ongoing sepsis, status post shock. 2. Healthcare-associated pneumonia with parapneumonic pleural effusion and sputum culture growing multi-drug resistant Pseudomonas aeruginosa. 3. Methicillin-resistant Staphylococcus aureus infected decubitus. 4. Kelly glabrata urinary tract infection. 5. Methicillin-resistant Staphylococcus aureus nares colonization. 6. End-stage renal disease, hemodialysis dependent. 7. History of cerebrovascular accident. 8. Ascites==> s/p paracentesis 09/24===> cx negative 9. Sacral decub 10. ALLERGY TO PENICILLIN AND SULFA. PLAN: Clinically unchanged, leukocytosis persist but slightly better, started on empiric Flagyl, repeat bld cx neg, continue abx, topical Bactroban to nares and local wound care [facility] staff Problems: RAISSA ROA NP Oct 03, 2016 15:13
[2016-10-03] MEDS ORDERED: VITAMIN A & D 5 GM OINT PACKET TOP ONE (16:13)
[2016-10-03] MEDS: COLLAGENASE 30 GM TUBE TOP SCH (17:20)
[2016-10-03] MEDS: AMIKACIN IVPB SCH (17:24)
[2016-10-03] MEDS: SOD CHLORIDE 0.9% IVPB SCH (17:24)
--- NOTE | 2016-10-03 17:43 | CONS ---
Date/Time of Note Date/Time of Note DATE: 10/03/16 TIME: 17:43 Assessment/Plan Assessment/Plan Chief Complaint/Hosp Course ASSESSMENT: 1. Renal failure on dialysis. 2. Vent dependent respiratory failure. 3. Chronic obstructive pulmonary disease. 4. Atrial fibrillation. 5. Ascites, successful paracentesis done. 6. Dysphagia 7. G-tube site leakage and cellulitis, improving 8. Anemia. 9. Status post septic shock. 10. Diabetes mellitus. 11. Decubitus ulcer. 12. Congestive heart failure. 13. Seizure disorder. 14. pneumonia,s/p sepsis Plan continue antibiotics monitor WBC Reglan for gastroparesis Bactroban to g tube site. Routine G-tube site care appreciate wound nurse management of G-tube site Problems: Consultation Date/Type/Reason Admit Date/Time Sep 17, 2016 at 18:49 Type of Consultation: GI 24 HR Interval Summary Free Text/Dictation No hemoptysis, hematemesis, hematochezia. The patient had hemodialysis yesterday, tolerated well. She also tolerates her tube feeds. Exam/Review of Systems Vital Signs Vitals Vital Signs Date Time Temp Pulse Resp B/P Pulse Ox O2 Delivery O2 Flow Rate FiO2 10/03/16 16:21 109 10/03/16 15:45 97.7 20 149/67 99 10/03/16 15:15 60 Intake and Output 10/02/16 10/02/16 10/03/16 15:00 23:00 07:00 Intake Total 505 ml 660 ml Output Total 1900 ml Balance -1395 ml 660 ml Exam Constitutional: frail Psych: confusion Head: atraumatic, normocephalic Eyes: EOMI, nl conjunctiva, nl lids, nl sclera ENMT: mucosa pink and moist, nl external ears & nose, nl lips & teeth, nl nasal mucosa & septum Neck: non-tender, supple Respiratory: clear to auscultation, normal air movement Cardiovascular: nl pulses, regular rate and rhythm Gastrointestinal: bowel sounds, non-tender, other (G-tube intact), soft Results Result Diagram: 10/03/16 0830 10/03/16 0830 Results 24 hrs Laboratory Tests Test 10/02/16 17:55 10/02/16 23:30 10/03/16 05:44 10/03/16 08:30 Bedside Glucose 170 119 115 Anion Gap 9 Basophils # 0.1 Basophils % 0.6 Blood Morphology Comment Blood Urea Nitrogen 44 H Calcium Level 8.9 Carbon Dioxide Level 32 H Chloride Level 92 L Creatinine 1.91 H Eosinophils # 0.0 Eosinophils % 0.3 Glucose Level 105 Hematocrit 31.8 L Hemoglobin 9.8 L Lymphocytes # 1.1 Lymphocytes % 6.9 L Mean Corpuscular Hemoglobin 30.0 Mean Corpuscular Hemoglobin Concent 30.9 L Mean Corpuscular Volume 97.2 Mean Platelet Volume 7.1 L Monocytes # 1.1 H Monocytes % 6.8 Neutrophils # 13.9 H Neutrophils % 85.4 H Nucleated Red Blood Cells # 0.0 Nucleated Red Blood Cells % 0.0 Platelet Count 306 Potassium Level 4.6 Red Blood Count 3.27 L Red Cell Distribution Width 18.2 H Sodium Level 128 L White Blood Count 16.3 #H Test 10/03/16 12:31 10/03/16 17:39 Bedside Glucose 144 108 Medications Medications Current Medications Levetiracetam/ Dextrose (Keppra Iv/D5W) 105 ml @ 420 mls/hr Q12 IVPB Last administered on 10/03/16at 10:09; Admin Dose 420 MLS/HR; Start 09/18/16 at 09: 00 Collagenase (Santyl) 1 applic DAILY TOP Last administered on 10/03/16at 17:20; Admin Dose 1 APPLIC; Start 09/18/16 at 09:00 Acetaminophen (Tylenol Liquid) 650 mg Q4H PRN NGT PAIN AND OR ELEVATED TEMP Last administered on 09/29/16at 12:07; Admin Dose 650 MG; Start 09/18/16 at 08: 00 Bisacodyl (Dulcolax Supp) 10 mg DAILY PRN [place] CONSTIPATION; Start 09/18/16 at 08:00 Mupirocin (Bactroban) Apply to bilateral nares ... BID TOP Last administered on 10/03/16at 09:00; Admin Dose 1 APPLIC; Start 09/18/16 at 09:00 Mirtazapine (Remeron) 7.5 mg HS GTB Last administered on 10/02/16at 21:04; Admin Dose 7.5 MG; Start 09/18/16 at 21:00 Ondansetron HCl (Zofran Inj) 4 mg Q4H PRN IV NAUSEA AND/OR VOMITING; Start 08/24 at 08:00 Morphine Sulfate (morphine) 2 mg Q3H PRN IV PAIN LEVEL 6-10 Last administered on 09/28/16at 12:25; Admin Dose 2 MG; Start 09/18/16 at 08:00 Lorazepam (Ativan) 0.5 mg Q3H PRN IV ANXIETY; Start 09/18/16 at 08:00 Amikacin Sulfate (Amikacin Iv Per Pharmacy) PER PHARMACY DOSING NOTE XX ; Start 09/18/16 at 13:00 Vancomycin HCl (Vanco Iv Per Pharmacy) PER PHARMACY DOSING NOTE XX ; Start 08/24 at 13:00 IV Flush (NS 10 ml) 10 ml PRN PRN IV IV PROTOCOL Last administered on at 06:01; Admin Dose 10 ML; Start 09/18/16 at 13:00 Sildenafil Citrate (Revatio) 20 mg TID PO Last administered on 10/02/16at 18:09 ; Admin Dose 20 MG; Start 09/19/16 at 09:00 Miscellaneous Information 1 ea NOTE XX ; Start 09/19/16 at 12:00 Glucose (Glutose) 15 gm Q15M PRN PO DECREASED GLUCOSE; Start 09/19/16 at 12:00 Glucose (Glutose) 22.5 gm Q15M PRN PO DECREASED GLUCOSE; Start 09/19/16 at 12: 00 Dextrose (D50w Syringe) 25 ml Q15M PRN IV DECREASED GLUCOSE; Start 09/19/16 at 12:00 Dextrose (D50w Syringe) 50 ml Q15M PRN IV DECREASED GLUCOSE; Start 09/19/16 at 12:00 Glucagon (Glucagen) 1 mg Q15M PRN IM DECREASED GLUCOSE; Start 09/19/16 at 12: 00 Glucose (Glutose) 15 gm Q15M PRN BUCCAL DECREASED GLUCOSE; Start 09/19/16 at 12:00 Voriconazole 200 mg 200 mg BID PO Last administered on 10/03/16at 09:00; Admin Dose 200 MG; Start 09/23/16 at 21:00 Vancomycin HCl (Vancocin) 250 ml @ 125 mls/hr Q96H IVPB Last administered on 10/01/16at 14:58; Admin Dose 125 MLS/HR; Start 09/23/16 at 13:00 Lansoprazole (Prevacid) 30 mg DAILY@06 PO Last administered on 10/03/16 05:45 ; Admin Dose 30 MG; Start 09/27/16 at 06:00 Apixaban (Eliquis) 2.5 mg BID GTB Last administered on 10/03/16at 09:00; Admin Dose 2.5 MG; Start 09/30/16 at 09:00 Metoclopramide HCl (Reglan) 5 mg Q6 IV Last administered on 10/03/16at 12:00; Admin Dose 5 MG; Start 09/30/16 at 12:00 Insulin Aspart (Novolog Insulin Pen) NOVOLOG *MILD* ALGORI... Q6 SC Last administered on 10/03/16at 13:16; Admin Dose 1 UNIT; Start 09/30/16 at 12:00 Metronidazole (Flagyl) 500 mg Q8 PO Last administered on 10/03/16at 05:45; Admin Dose 500 MG; Start 10/01/16 at 14:30 CAMDEN FRITZ MD Oct 03, 2016 17:43
[2016-10-03] MEDS: MIRTAZAPINE 15 MG TAB GTB SCH (21:41)
[2016-10-04] VITALS (23 sets, daily range): BP systolic 84–132; BP diastolic 31–61; PULSE 99–109; RESP 12–20
[2016-10-04] MEDS: IPRATROPIUM (HFA) 12.9 GM INHALER INH SCH ×6 (00:55→19:43)
[2016-10-04] MEDS: LEVALBUTEROL (HFA) 15 GM INHALER INH SCH ×6 (00:55→19:43)
[2016-10-04] MEDS: INSULIN ASPART [NOVOLOG] 3 ML PEN SC SCH ×4 (06:00→16:56)
[2016-10-04 06:04] LABS: BASOPHILS % 0.3 % (0.0-2.0); EOSINOPHILS # 0.1 10^3/ul (0.0-0.5); EOSINOPHILS % 0.7 % (0.0-7.0); HEMATOCRIT 28.9 % (37.0-47.0); HEMOGLOBIN 8.9 g/dl (12.0-16.0); LYMPHOCYTES # 1.1 10^3/ul (0.8-2.9); LYMPHOCYTES % 10.2 % (15.0-51.0); MEAN CORPUSCULAR HEMOGLOBIN 30.1 pg (29.0-33.0); MEAN CORPUSCULAR HGB CONC 30.8 g/dl (32.0-37.0); MEAN CORPUSCULAR VOLUME 97.7 fl (82.0-101.0); MEAN PLATELET VOLUME 7.2 fl (7.4-10.4); MONOCYTE # 0.8 10^3/ul (0.3-0.9); MONOCYTES % 7.4 % (0.0-11.0); NEUTROPHILS % 81.4 % (39.0-77.0); PLATELET COUNT 231 10^3/UL (140-440); RED BLOOD COUNT 2.96 10^6/ul (4.20-5.40); RED CELL DISTRIBUTION WIDTH 18.4 % (11.5-14.5); UNCORRECTED WBC 11.1 10^3/ul (4.8-10.8); WHITE BLOOD COUNT 11.1 10^3/ul (4.8-10.8)
[2016-10-04] MEDS: METOCLOPRAMIDE 10 MG INJ IV SCH ×4 (06:09→16:56)
[2016-10-04] MEDS: LANSOPRAZOLE 30 MG CAP PO SCH (06:09)
[2016-10-04] MEDS: metroNIDAZOLE 500 MG TAB PO SCH ×3 (06:09→22:26)
[2016-10-04 06:11] LABS: CONDITION 1; LH ANALYZER COMMENTS 1
[2016-10-04 06:13] LABS: POTASSIUM 4.1 mmol/L (3.5-5.1)
[2016-10-04 06:15] LABS: CREATININE 1.7 mg/dl (0.44-1.00)
[2016-10-04 06:16] LABS: CALCIUM 8.7 mg/dl (8.4-10.2); PHOSPHORUS 2.9 mg/dl (2.5-4.9)
[2016-10-04 06:17] LABS: MAGNESIUM 2.3 mg/dl (1.7-2.5)
--- NOTE | 2016-10-04 07:51 | CONS ---
Date/Time of Note Date/Time of Note DATE: 10/04/16 TIME: 07:49 Assessment/Plan Assessment/Plan Chief Complaint/Hosp Course ASSESSMENT: 1. Renal failure on dialysis. 2. Vent dependent respiratory failure. 3. Chronic obstructive pulmonary disease. 4. Atrial fibrillation. 5. Ascites, successful paracentesis done. 6. Dysphagia 7. G-tube site leakage and cellulitis, improving 8. Anemia: stable, likely from anemia of chronic disease 9. Status post septic shock. 10. Diabetes mellitus. 11. Decubitus ulcer. 12. Congestive heart failure. 13. Seizure disorder. 14. pneumonia,s/p sepsis Plan continue antibiotics per ID Reglan for gastroparesis Bactroban to g tube site. Routine G-tube site care appreciate wound nurse management of G-tube site GI plan d/w male family member who is at bedside. Problems: Consultation Date/Type/Reason Admit Date/Time Sep 17, 2016 at 18:49 Type of Consultation: GI 24 HR Interval Summary Free Text/Dictation family at bedside, tolerating tube feeds, no n/v Exam/Review of Systems Vital Signs Vitals Vital Signs Date Time Temp Pulse Resp B/P Pulse Ox O2 Delivery O2 Flow Rate FiO2 10/04/16 04:53 108 16 95 60 10/04/16 04:52 98.7 95/45 Intake and Output 10/03/16 10/03/16 10/04/16 15:00 23:00 07:00 Intake Total 500 ml 850 ml 600 ml Output Total 2500 ml Balance -2000 ml 850 ml 600 ml Exam Constitutional: frail Psych: confusion Head: atraumatic, normocephalic Eyes: EOMI, nl conjunctiva, nl lids, nl sclera ENMT: mucosa pink and moist, nl external ears & nose, nl lips & teeth, nl nasal mucosa & septum Neck: non-tender, supple Respiratory: clear to auscultation, normal air movement Cardiovascular: nl pulses, regular rate and rhythm Gastrointestinal: bowel sounds, other (G-tube c/d/i), soft Results Result Diagram: 10/04/16 0530 10/04/16 0530 Results 24 hrs Laboratory Tests Test 10/03/16 08:30 10/03/16 12:31 10/03/16 17:39 10/04/16 00:00 Anion Gap 9 Basophils # 0.1 Basophils % 0.6 Blood Morphology Comment Blood Urea Nitrogen 44 H Calcium Level 8.9 Carbon Dioxide Level 32 H Chloride Level 92 L Creatinine 1.91 H Eosinophils # 0.0 Eosinophils % 0.3 Glucose Level 105 Hematocrit 31.8 L Hemoglobin 9.8 L Lymphocytes # 1.1 Lymphocytes % 6.9 L Mean Corpuscular Hemoglobin 30.0 Mean Corpuscular Hemoglobin Concent 30.9 L Mean Corpuscular Volume 97.2 Mean Platelet Volume 7.1 L Monocytes # 1.1 H Monocytes % 6.8 Neutrophils # 13.9 H Neutrophils % 85.4 H Nucleated Red Blood Cells # 0.0 Nucleated Red Blood Cells % 0.0 Platelet Count 306 Potassium Level 4.6 Red Blood Count 3.27 L Red Cell Distribution Width 18.2 H Sodium Level 128 L White Blood Count 16.3 #H Bedside Glucose 144 108 119 Test 10/04/16 05:30 10/04/16 05:49 Anion Gap 7 L Basophils # 0.0 Basophils % 0.3 Blood Morphology Comment Blood Urea Nitrogen 36 H Calcium Level 8.7 Carbon Dioxide Level 31 Chloride Level 101 Creatinine 1.70 H Eosinophils # 0.1 Eosinophils % 0.7 Glucose Level 109 Hematocrit 28.9 L Hemoglobin 8.9 L Lymphocytes # 1.1 Lymphocytes % 10.2 L Magnesium Level 2.3 Mean Corpuscular Hemoglobin 30.1 Mean Corpuscular Hemoglobin Concent 30.8 L Mean Corpuscular Volume 97.7 Mean Platelet Volume 7.2 L Monocytes # 0.8 Monocytes % 7.4 Neutrophils # 9.0 H Neutrophils % 81.4 H Nucleated Red Blood Cells # 0.0 Nucleated Red Blood Cells % 0.0 Phosphorus Level 2.9 Platelet Count 231 # Potassium Level 4.1 Red Blood Count 2.96 L Red Cell Distribution Width 18.4 H Sodium Level 135 White Blood Count 11.1 #H Bedside Glucose 107 Medications Medications Current Medications Levetiracetam/ Dextrose (Keppra Iv/D5W) 105 ml @ 420 mls/hr Q12 IVPB Last administered on 10/03/16at 21:48; Admin Dose 420 MLS/HR; Start 09/18/16 at 09: 00 Collagenase (Santyl) 1 applic DAILY TOP Last administered on 10/03/16at 17:20; Admin Dose 1 APPLIC; Start 09/18/16 at 09:00 Acetaminophen (Tylenol Liquid) 650 mg Q4H PRN NGT PAIN AND OR ELEVATED TEMP Last administered on 09/29/16at 12:07; Admin Dose 650 MG; Start 09/18/16 at 08: 00 Bisacodyl (Dulcolax Supp) 10 mg DAILY PRN [place] CONSTIPATION; Start 09/18/16 at 08:00 Mupirocin (Bactroban) Apply to bilateral nares ... BID TOP Last administered on 10/03/16at 21:42; Admin Dose 1 APPLIC; Start 09/18/16 at 09:00 Mirtazapine (Remeron) 7.5 mg HS GTB Last administered on 10/03/16at 21:41; Admin Dose 7.5 MG; Start 09/18/16 at 21:00 Ondansetron HCl (Zofran Inj) 4 mg Q4H PRN IV NAUSEA AND/OR VOMITING; Start 08/24 at 08:00 Morphine Sulfate (morphine) 2 mg Q3H PRN IV PAIN LEVEL 6-10 Last administered on 09/28/16at 12:25; Admin Dose 2 MG; Start 09/18/16 at 08:00 Lorazepam (Ativan) 0.5 mg Q3H PRN IV ANXIETY; Start 09/18/16 at 08:00 Amikacin Sulfate (Amikacin Iv Per Pharmacy) PER PHARMACY DOSING NOTE XX ; Start 09/18/16 at 13:00 Vancomycin HCl (Vanco Iv Per Pharmacy) PER PHARMACY DOSING NOTE XX ; Start 08/24 at 13:00 IV Flush (NS 10 ml) 10 ml PRN PRN IV IV PROTOCOL Last administered on at 06:01; Admin Dose 10 ML; Start 09/18/16 at 13:00 Sildenafil Citrate (Revatio) 20 mg TID PO Last administered on 10/03/16at 21:48 ; Admin Dose 20 MG; Start 09/19/16 at 09:00 Miscellaneous Information 1 ea NOTE XX ; Start 09/19/16 at 12:00 Glucose (Glutose) 15 gm Q15M PRN PO DECREASED GLUCOSE; Start 09/19/16 at 12:00 Glucose (Glutose) 22.5 gm Q15M PRN PO DECREASED GLUCOSE; Start 09/19/16 at 12: 00 Dextrose (D50w Syringe) 25 ml Q15M PRN IV DECREASED GLUCOSE; Start 09/19/16 at 12:00 Dextrose (D50w Syringe) 50 ml Q15M PRN IV DECREASED GLUCOSE; Start 09/19/16 at 12:00 Glucagon (Glucagen) 1 mg Q15M PRN IM DECREASED GLUCOSE; Start 09/19/16 at 12: 00 Glucose (Glutose) 15 gm Q15M PRN BUCCAL DECREASED GLUCOSE; Start 09/19/16 at 12:00 Voriconazole 200 mg 200 mg BID PO Last administered on 10/03/16at 21:41; Admin Dose 200 MG; Start 09/23/16 at 21:00 Vancomycin HCl (Vancocin) 250 ml @ 125 mls/hr Q96H IVPB Last administered on 10/01/16at 14:58; Admin Dose 125 MLS/HR; Start 09/23/16 at 13:00 Lansoprazole (Prevacid) 30 mg DAILY@06 PO Last administered on 10/04/16 06:09 ; Admin Dose 30 MG; Start 09/27/16 at 06:00 Apixaban (Eliquis) 2.5 mg BID GTB Last administered on 10/03/16at 21:42; Admin Dose 2.5 MG; Start 09/30/16 at 09:00 Metoclopramide HCl (Reglan) 5 mg Q6 IV Last administered on 10/04/16at 06:09; Admin Dose 5 MG; Start 09/30/16 at 12:00 Insulin Aspart (Novolog Insulin Pen) NOVOLOG *MILD* ALGORI... Q6 SC Last administered on 10/03/16at 13:16; Admin Dose 1 UNIT; Start 09/30/16 at 12:00 Metronidazole (Flagyl) 500 mg Q8 PO Last administered on 10/04/16at 06:09; Admin Dose 500 MG; Start 10/01/16 at 14:30 CAMDEN FRITZ MD Oct 04, 2016 07:51
[2016-10-04] MEDS: SILDENAFIL 20 MG TAB PO SCH ×3 (09:00→21:00)
[2016-10-04] MEDS: BUDESONIDE (NEB) 0.5MG/2ML AMP HHN SCH ×2 (09:00→20:00)
[2016-10-04] MEDS: VORICONAZOLE 200 MG TAB PO SCH ×2 (09:26→22:26)
[2016-10-04] MEDS: LEVETIRACETAM IV 500 MG in DEXTROSE 5% 100 ML IVPB SCH ×2 (09:26→21:00)
[2016-10-04] MEDS: COLLAGENASE 30 GM TUBE TOP SCH (09:27)
[2016-10-04] MEDS: MUPIROCIN 2% 22 GM OINT TOP SCH ×2 (09:27→22:27)
[2016-10-04] MEDS: APIXABAN 5 MG TABLET GTB SCH ×2 (09:27→22:26)
--- NOTE | 2016-10-04 12:00 | CONS ---
Date/Time of Note Date/Time of Note DATE: 10/04/16 TIME: 11:55 Consult Date/Type/Reason Admit Date/Time Sep 17, 2016 at 18:49 Initial Consult Date Type of Consultation: neph/med Subjective The patient remains stable, no acute events noted. No hemoptysis, hematemesis, hematochezia. The patient on hemodialysis yesterday without complication. POC reviewed with dr. jama. Chart/meds/labs reviewed. tolerating meds and therapies. Objective Vital Signs Date Time Temp Pulse Resp B/P Pulse Ox O2 Delivery O2 Flow Rate FiO2 10/04/16 11:15 107 14 98 60 10/04/16 11:06 98.8 132/61 Intake and Output 10/03/16 10/03/16 10/04/16 15:00 23:00 07:00 Intake Total 500 ml 850 ml 600 ml Output Total 2500 ml Balance -2000 ml 850 ml 600 ml HEENT: Head is normocephalic. NECK: Supple. HEART: Regular rate. LUNGS: Show diminished breath sounds at the base. ABDOMEN: Soft, nontender to palpation. No rebound or guarding. EXTREMITIES: Negative for clubbing, cyanosis, no edema. DERMATOLOGIC: No rashes. MUSCULOSKELETAL: No joint effusions. NEUROLOGIC: No change in exam. Results/Medications Result Diagram: 10/04/16 0530 10/04/16 0530 Results 24 hrs Laboratory Tests Test 10/03/16 12:31 10/03/16 17:39 10/04/16 00:00 10/04/16 05:30 Bedside Glucose 144 108 119 Anion Gap 7 L Basophils # 0.0 Basophils % 0.3 Blood Morphology Comment Blood Urea Nitrogen 36 H Calcium Level 8.7 Carbon Dioxide Level 31 Chloride Level 101 Creatinine 1.70 H Eosinophils # 0.1 Eosinophils % 0.7 Glucose Level 109 Hematocrit 28.9 L Hemoglobin 8.9 L Lymphocytes # 1.1 Lymphocytes % 10.2 L Magnesium Level 2.3 Mean Corpuscular Hemoglobin 30.1 Mean Corpuscular Hemoglobin Concent 30.8 L Mean Corpuscular Volume 97.7 Mean Platelet Volume 7.2 L Monocytes # 0.8 Monocytes % 7.4 Neutrophils # 9.0 H Neutrophils % 81.4 H Nucleated Red Blood Cells # 0.0 Nucleated Red Blood Cells % 0.0 Phosphorus Level 2.9 Platelet Count 231 # Potassium Level 4.1 Red Blood Count 2.96 L Red Cell Distribution Width 18.4 H Sodium Level 135 White Blood Count 11.1 #H Test 10/04/16 05:49 Bedside Glucose 107 Medications Current Medications Levetiracetam/ Dextrose (Keppra Iv/D5W) 105 ml @ 420 mls/hr Q12 IVPB Last administered on 10/04/16at 09:26; Admin Dose 420 MLS/HR; Start 09/18/16 at 09: 00 Collagenase (Santyl) 1 applic DAILY TOP Last administered on 10/04/16at 09:27; Admin Dose 1 APPLIC; Start 09/18/16 at 09:00 Acetaminophen (Tylenol Liquid) 650 mg Q4H PRN NGT PAIN AND OR ELEVATED TEMP Last administered on 09/29/16at 12:07; Admin Dose 650 MG; Start 09/18/16 at 08: 00 Bisacodyl (Dulcolax Supp) 10 mg DAILY PRN [place] CONSTIPATION; Start 09/18/16 at 08:00 Mupirocin (Bactroban) Apply to bilateral nares ... BID TOP Last administered on 10/04/16at 09:27; Admin Dose 1 APPLIC; Start 09/18/16 at 09:00 Mirtazapine (Remeron) 7.5 mg HS GTB Last administered on 10/03/16at 21:41; Admin Dose 7.5 MG; Start 09/18/16 at 21:00 Ondansetron HCl (Zofran Inj) 4 mg Q4H PRN IV NAUSEA AND/OR VOMITING; Start 08/24 at 08:00 Morphine Sulfate (morphine) 2 mg Q3H PRN IV PAIN LEVEL 6-10 Last administered on 09/28/16at 12:25; Admin Dose 2 MG; Start 09/18/16 at 08:00 Lorazepam (Ativan) 0.5 mg Q3H PRN IV ANXIETY; Start 09/18/16 at 08:00 Amikacin Sulfate (Amikacin Iv Per Pharmacy) PER PHARMACY DOSING NOTE XX ; Start 09/18/16 at 13:00 Vancomycin HCl (Vanco Iv Per Pharmacy) PER PHARMACY DOSING NOTE XX ; Start 08/24 at 13:00 IV Flush (NS 10 ml) 10 ml PRN PRN IV IV PROTOCOL Last administered on at 06:01; Admin Dose 10 ML; Start 09/18/16 at 13:00 Sildenafil Citrate (Revatio) 20 mg TID PO Last administered on 10/03/16at 21:48 ; Admin Dose 20 MG; Start 09/19/16 at 09:00 Miscellaneous Information 1 ea NOTE XX ; Start 09/19/16 at 12:00 Glucose (Glutose) 15 gm Q15M PRN PO DECREASED GLUCOSE; Start 09/19/16 at 12:00 Glucose (Glutose) 22.5 gm Q15M PRN PO DECREASED GLUCOSE; Start 09/19/16 at 12: 00 Dextrose (D50w Syringe) 25 ml Q15M PRN IV DECREASED GLUCOSE; Start 09/19/16 at 12:00 Dextrose (D50w Syringe) 50 ml Q15M PRN IV DECREASED GLUCOSE; Start 09/19/16 at 12:00 Glucagon (Glucagen) 1 mg Q15M PRN IM DECREASED GLUCOSE; Start 09/19/16 at 12: 00 Glucose (Glutose) 15 gm Q15M PRN BUCCAL DECREASED GLUCOSE; Start 09/19/16 at 12:00 Voriconazole 200 mg 200 mg BID PO Last administered on 10/04/16at 09:26; Admin Dose 200 MG; Start 09/23/16 at 21:00 Vancomycin HCl (Vancocin) 250 ml @ 125 mls/hr Q96H IVPB Last administered on 10/01/16at 14:58; Admin Dose 125 MLS/HR; Start 09/23/16 at 13:00 Lansoprazole (Prevacid) 30 mg DAILY@06 PO Last administered on 10/04/16at 06:09 ; Admin Dose 30 MG; Start 09/27/16 at 06:00 Apixaban (Eliquis) 2.5 mg BID GTB Last administered on 10/04/16at 09:27; Admin Dose 2.5 MG; Start 09/30/16 at 09:00 Metoclopramide HCl (Reglan) 5 mg Q6 IV Last administered on 10/04/16at 06:09; Admin Dose 5 MG; Start 09/30/16 at 12:00 Insulin Aspart (Novolog Insulin Pen) NOVOLOG *MILD* ALGORI... Q6 SC Last administered on 10/03/16at 13:16; Admin Dose 1 UNIT; Start 09/30/16 at 12:00 Metronidazole (Flagyl) 500 mg Q8 PO Last administered on 10/04/16at 06:09; Admin Dose 500 MG; Start 10/01/16 at 14:30 Assessment/Plan Chief Complaint/Hosp Course 1. Sepsis, status post shock, etiology is secondary to pneumonia, decubitus wound. The patient remains on antimicrobial antibiotic therapy. The patient has been afebrile now for 48 hours. Repeat cultures have been sent and negative to date. Lactic acid level has been within normal limits. Will current antibiotic regimen. Follow up infectious disease. 2. Leukocytosis, etiology may be multifactorial secondary to infectious versus reactive. White count has been trending down. Continue to monitor. Continue current treatment plan as stated above. 3. End-stage renal disease. The patient had hemodialysis yesterday for hyponatremia and solute clearance. 4. Hypernatremia. improved. multifactorial secondary to end-stage renal disease, free water flushes. Will continue to hold all free water flushes, continue dialysis on a 140 sodium bath. 5. Pulmonary hypertension. Continue sildenafil. 6. Anemia. Continue to monitor H and H levels, continue Epogen. 7. Seizure disorder. Continue Keppra. 8. Decubitus wound. Continue wound care. 9. Diabetes. Continue Accu-Cheks and sliding scale. 10. Dysphagia. PEG tube, tube feeding. 11. Chronic encephalopathy. No change. 12. Coronary artery disease. Continue medical management. 13. History of congestive heart failure, right-sided heart failure. Continue current medical management. 14. History of cerebrovascular accident. 15. Ventilator dependent respiratory failure. Vent settings have been reviewed. ABG has been reviewed. Continue to monitor. 16. Gastrointestinal and deep venous thrombosis prophylaxis. Continue proton pump inhibitor, heparin. Problems: ZEN TORO MD Oct 04, 2016 12:00
--- NOTE | 2016-10-04 14:01 | CONS ---
Date/Time of Note Date/Time of Note DATE: 10/04/16 TIME: 13:55 Assessment/Plan Assessment/Plan Chief Complaint/Hosp Course ID PROGRESS NOTE 24H INTERVAL SUMMARY => Clinically status quo, noncommunicative MICROBIOLOGY: * Endotracheal aspirate growing multidrug resistant Pseudomonas. * Blood cultures negative * Wound culture of her sacrum growing MRSA. * Urine culture growing Kelly glabrata. INDWELLING: trach, PEG, RIJ Perm-A-Cath, Left upper extremity PICC line placed on 09/18/2016. PHYSICAL EXAMINATION: GENERAL: VSS-> weaning pressors, NAD, noncommunicative on Vent HEENT: Unremarkable NECK: Supple, trachea midline. CHEST: Rise symmetrical,=> Vented course BS HEART: S1, S2. ABDOMEN: Soft, benign - Peg EXTREMITIES: Warm, no edema SKIN: STG IV DECUB -> See photos ID ASSESSMENT 81 yo H F w/PMHx Afib, CVA, VDRF-Trach since OCT 2015, Peg, COPD, ESRD admit with: 1. Sepsis w/shock => hypotension on pressors ->Likely GNR from GNR HCAP + DECUB + ?bladder sepsis - anuric * Leukocytosis on admit * Low grade temps on admit 99.7 * Encephalopathy 2/2 #1 2. GNR HCAP = (+PSAR sensitive to Amikacin 3. Right pleural effusion, possibly underlying healthcare-associated pneumonia. 3. Acute decompensated heart failure, right-sided heart failure. Continue ultrafiltration dialysis. 4. Dysfunctional G-tube with NG tube in place. 5. ESRD-> HD w/PermCath 6. Ascites==> s/p paracentesis 09/24===> cx negative 7. STG IV coccygeal decub present on admission * Wound Cx(+)MRSA -> Pending 8. (+)Glabrata UTI -> Urostasis 2nd anuric 9. Oral candidiasis ( + )MRSA Nares ->Bactroban INVASIVES: PICC (09/18), Trach, Peg, NGT, PermCath ABX ALLERGY: PCN/SULFA CURRENT ABX: ABX => Vanco IV + Amikacin + VFEND + Flagyl ID RECOMMENDATIONS Slow clinical improvement -- continue current ABX . Problems: Consultation Date/Type/Reason Admit Date/Time Sep 17, 2016 at 18:49 Type of Consultation: ID Exam/Review of Systems Vital Signs Vitals Vital Signs Date Time Temp Pulse Resp B/P Pulse Ox O2 Delivery O2 Flow Rate FiO2 10/04/16 13:40 91 16 96 60 10/04/16 11:06 98.8 132/61 Intake and Output 10/03/16 10/03/16 10/04/16 15:00 23:00 07:00 Intake Total 500 ml 850 ml 600 ml Output Total 2500 ml Balance -2000 ml 850 ml 600 ml Results Result Diagram: 10/04/1630 10/04/16 0530 Results 24 hrs Laboratory Tests Test 10/03/16 17:39 10/04/16 00:00 10/04/16 05:30 10/04/16 05:49 Bedside Glucose 108 119 107 Anion Gap 7 L Basophils # 0.0 Basophils % 0.3 Blood Morphology Comment Blood Urea Nitrogen 36 H Calcium Level 8.7 Carbon Dioxide Level 31 Chloride Level 101 Creatinine 1.70 H Eosinophils # 0.1 Eosinophils % 0.7 Glucose Level 109 Hematocrit 28.9 L Hemoglobin 8.9 L Lymphocytes # 1.1 Lymphocytes % 10.2 L Magnesium Level 2.3 Mean Corpuscular Hemoglobin 30.1 Mean Corpuscular Hemoglobin Concent 30.8 L Mean Corpuscular Volume 97.7 Mean Platelet Volume 7.2 L Monocytes # 0.8 Monocytes % 7.4 Neutrophils # 9.0 H Neutrophils % 81.4 H Nucleated Red Blood Cells # 0.0 Nucleated Red Blood Cells % 0.0 Phosphorus Level 2.9 Platelet Count 231 # Potassium Level 4.1 Red Blood Count 2.96 L Red Cell Distribution Width 18.4 H Sodium Level 135 White Blood Count 11.1 #H Test 10/04/16 12:12 Bedside Glucose 122 Medications Medications Current Medications Levetiracetam/ Dextrose (Keppra Iv/D5W) 105 ml @ 420 mls/hr Q12 IVPB Last administered on 10/04/16at 09:26; Admin Dose 420 MLS/HR; Start 09/18/16 at 09: 00 Collagenase (Santyl) 1 applic DAILY TOP Last administered on 10/04/16at 09:27; Admin Dose 1 APPLIC; Start 09/18/16 at 09:00 Acetaminophen (Tylenol Liquid) 650 mg Q4H PRN NGT PAIN AND OR ELEVATED TEMP Last administered on 09/29/16at 12:07; Admin Dose 650 MG; Start 09/18/16 at 08: 00 Bisacodyl (Dulcolax Supp) 10 mg DAILY PRN [place] CONSTIPATION; Start 09/18/16 at 08:00 Mupirocin (Bactroban) Apply to bilateral nares ... BID TOP Last administered on 10/04/16at 09:27; Admin Dose 1 APPLIC; Start 09/18/16 at 09:00 Mirtazapine (Remeron) 7.5 mg HS GTB Last administered on 10/03/16at 21:41; Admin Dose 7.5 MG; Start 09/18/16 at 21:00 Ondansetron HCl (Zofran Inj) 4 mg Q4H PRN IV NAUSEA AND/OR VOMITING; Start 08/24 at 08:00 Morphine Sulfate (morphine) 2 mg Q3H PRN IV PAIN LEVEL 6-10 Last administered on 09/28/16at 12:25; Admin Dose 2 MG; Start 09/18/16 at 08:00 Lorazepam (Ativan) 0.5 mg Q3H PRN IV ANXIETY; Start 09/18/16 at 08:00 Amikacin Sulfate (Amikacin Iv Per Pharmacy) PER PHARMACY DOSING NOTE XX ; Start 09/18/16 at 13:00 Vancomycin HCl (Vanco Iv Per Pharmacy) PER PHARMACY DOSING NOTE XX ; Start 08/24 at 13:00 IV Flush (NS 10 ml) 10 ml PRN PRN IV IV PROTOCOL Last administered on at 06:01; Admin Dose 10 ML; Start 09/18/16 at 13:00 Sildenafil Citrate (Revatio) 20 mg TID PO Last administered on 10/04/16at 12:13 ; Admin Dose 20 MG; Start 09/19/16 at 09:00 Miscellaneous Information 1 ea NOTE XX ; Start 09/19/16 at 12:00 Glucose (Glutose) 15 gm Q15M PRN PO DECREASED GLUCOSE; Start 09/19/16 at 12:00 Glucose (Glutose) 22.5 gm Q15M PRN PO DECREASED GLUCOSE; Start 09/19/16 at 12: 00 Dextrose (D50w Syringe) 25 ml Q15M PRN IV DECREASED GLUCOSE; Start 09/19/16 at 12:00 Dextrose (D50w Syringe) 50 ml Q15M PRN IV DECREASED GLUCOSE; Start 09/19/16 at 12:00 Glucagon (Glucagen) 1 mg Q15M PRN IM DECREASED GLUCOSE; Start 09/19/16 at 12: 00 Glucose (Glutose) 15 gm Q15M PRN BUCCAL DECREASED GLUCOSE; Start 09/19/16 at 12:00 Voriconazole 200 mg 200 mg BID PO Last administered on 10/04/16 09:26; Admin Dose 200 MG; Start 09/23/16 at 21:00 Vancomycin HCl (Vancocin) 250 ml @ 125 mls/hr Q96H IVPB Last administered on 10/01/16at 14:58; Admin Dose 125 MLS/HR; Start 09/23/16 at 13:00 Lansoprazole (Prevacid) 30 mg DAILY@06 PO Last administered on 10/04/16at 06:09 ; Admin Dose 30 MG; Start 09/27/16 at 06:00 Apixaban (Eliquis) 2.5 mg BID GTB Last administered on 10/04/16 09:27; Admin Dose 2.5 MG; Start 09/30/16 at 09:00 Metoclopramide HCl (Reglan) 5 mg Q6 IV Last administered on 10/04/16at 12:14; Admin Dose 5 MG; Start 09/30/16 at 12:00 Insulin Aspart (Novolog Insulin Pen) NOVOLOG *MILD* ALGORI... Q6 SC Last administered on 10/03/16at 13:16; Admin Dose 1 UNIT; Start 09/30/16 at 12:00 Metronidazole (Flagyl) 500 mg Q8 PO Last administered on 10/04/16at 12:13; Admin Dose 500 MG; Start 10/01/16 at 14:30 JOEY RODRIGUEZ NP Oct 04, 2016 14:01
--- NOTE | 2016-10-04 17:05 | PN ---
DATE: 10/04/2016 SUBJECTIVE: This patient has no new events, stable overnight. PHYSICAL EXAMINATION: VITAL SIGNS: Temperature 98, pulse 91, blood pressure 132/70, O2 saturation 96% on FIO2 of 60%. NECK: Trach site clean and intact. CARDIAC: S1, S2, no added sounds or murmurs. CHEST: Diminished air entry bilaterally. ABDOMEN: Soft, nontender. No guarding or rebound. EXTREMITIES: No cyanosis, clubbing, edema. NEUROLOGIC: Generalized weakness. LABORATORY DATA: White count 11.1 down from 16, hemoglobin 8.9, platelets 231. Chemistry: BUN 36, creatinine 1.7. IMPRESSION AND PLAN: 1. Ventilator-dependent respiratory failure. 2. Status post septic shock. 3. Decubitus ulcers. 4. End-stage renal failure. Patient to continue: 1. Wound care. 2. Vent support. 3. Antibiotics. 4. Tube feeding. 5. Consider discharge to detention facility. Dictated By: JULIA SNYDER/ARNOLDO Conf#: [id number] DID#: [id number]
[2016-10-04] MEDS: EPOETIN 10000 UNITS/1 ML INJ (ESRD) SC SCH (17:37)
[2016-10-04] MEDS: MIRTAZAPINE 15 MG TAB GTB SCH (22:26)
[2016-10-05] VITALS (34 sets, daily range): BP systolic 90–114; BP diastolic 38–56; PULSE 88–101; RESP 12–16
[2016-10-05] MEDS: METOCLOPRAMIDE 10 MG INJ IV SCH ×4 (01:03→17:01)
[2016-10-05] MEDS: LEVALBUTEROL (HFA) 15 GM INHALER INH SCH ×6 (01:43→20:10)
[2016-10-05] MEDS: IPRATROPIUM (HFA) 12.9 GM INHALER INH SCH ×6 (01:43→20:10)
[2016-10-05] MEDS: metroNIDAZOLE 500 MG TAB PO SCH ×3 (05:20→21:54)
[2016-10-05] MEDS: LANSOPRAZOLE 30 MG CAP PO SCH (05:20)
[2016-10-05] MEDS: INSULIN ASPART [NOVOLOG] 3 ML PEN SC SCH ×4 (05:22→17:05)
--- NOTE | 2016-10-05 08:05 | CONS ---
Date/Time of Note Date/Time of Note DATE: 10/05/16 TIME: 08:04 Assessment/Plan Assessment/Plan Chief Complaint/Hosp Course ASSESSMENT: 1. Renal failure on dialysis. 2. Vent dependent respiratory failure. 3. Chronic obstructive pulmonary disease. 4. Atrial fibrillation. 5. Ascites, successful paracentesis done. 6. Dysphagia 7. G-tube site leakage and cellulitis, improving 8. Anemia: stable, likely from anemia of chronic disease 9. Status post septic shock. 10. Diabetes mellitus. 11. Decubitus ulcer. 12. Congestive heart failure. 13. Seizure disorder. 14. pneumonia,s/p sepsis Plan continue antibiotics per ID Mason for gastroparesis Bactroban to g tube site. Routine G-tube site care appreciate wound nurse management of G-tube site GI plan d/w male family member who is at bedside. Problems: Consultation Date/Type/Reason Admit Date/Time Sep 17, 2016 at 18:49 Type of Consultation: GI 24 HR Interval Summary Free Text/Dictation tolerating tube feeds, no n/v Exam/Review of Systems Vital Signs Vitals Vital Signs Date Time Temp Pulse Resp B/P Pulse Ox O2 Delivery O2 Flow Rate FiO2 10/05/16 07:01 98.1 105 14 92/50 95 10/05/16 05:29 60 Intake and Output 10/04/16 10/04/16 10/05/16 15:00 23:00 07:00 Intake Total 975 ml 850 ml Balance 975 ml 850 ml Exam Constitutional: frail, non-verbal Psych: confusion Head: atraumatic, normocephalic ENMT: mucosa pink and moist, nl external ears & nose, nl lips & teeth, nl nasal mucosa & septum Neck: non-tender, supple Respiratory: clear to auscultation, normal air movement Cardiovascular: nl pulses, regular rate and rhythm Gastrointestinal: bowel sounds, other (GT intact), soft Results Result Diagram: 10/04/16 0530 10/04/16 0530 Results 24 hrs Laboratory Tests Test 10/04/16 12:12 10/04/16 16:55 10/04/16 21:09 10/05/16 01:00 Bedside Glucose 122 104 110 109 Test 10/05/16 05:18 Bedside Glucose 117 Medications Medications Current Medications Levetiracetam/ Dextrose (Keppra Iv/D5W) 105 ml @ 420 mls/hr Q12 IVPB Last administered on 10/04/16at 21:00; Admin Dose 420 MLS/HR; Start 09/18/16 at 09: 00 Collagenase (Santyl) 1 applic DAILY TOP Last administered on 10/04/16at 09:27; Admin Dose 1 APPLIC; Start 09/18/16 at 09:00 Acetaminophen (Tylenol Liquid) 650 mg Q4H PRN NGT PAIN AND OR ELEVATED TEMP Last administered on 09/29/16at 12:07; Admin Dose 650 MG; Start 09/18/16 at 08: 00 Bisacodyl (Dulcolax Supp) 10 mg DAILY PRN [place] CONSTIPATION; Start 09/18/16 at 08:00 Mupirocin (Bactroban) Apply to bilateral nares ... BID TOP Last administered on 10/04/16at 22:27; Admin Dose 1 APPLIC; Start 09/18/16 at 09:00 Mirtazapine (Remeron) 7.5 mg HS GTB Last administered on 10/04/16at 22:26; Admin Dose 7.5 MG; Start 09/18/16 at 21:00 Ondansetron HCl (Zofran Inj) 4 mg Q4H PRN IV NAUSEA AND/OR VOMITING; Start 08/24 at 08:00 Morphine Sulfate (morphine) 2 mg Q3H PRN IV PAIN LEVEL 6-10 Last administered on 09/28/16at 12:25; Admin Dose 2 MG; Start 09/18/16 at 08:00 Lorazepam (Ativan) 0.5 mg Q3H PRN IV ANXIETY; Start 09/18/16 at 08:00 Amikacin Sulfate (Amikacin Iv Per Pharmacy) PER PHARMACY DOSING NOTE XX ; Start 09/18/16 at 13:00 Vancomycin HCl (Vanco Iv Per Pharmacy) PER PHARMACY DOSING NOTE XX ; Start 08/24 at 13:00 IV Flush (NS 10 ml) 10 ml PRN PRN IV IV PROTOCOL Last administered on at 06:01; Admin Dose 10 ML; Start 09/18/16 at 13:00 Sildenafil Citrate (Revatio) 20 mg TID PO Last administered on 10/04/16at 12:13 ; Admin Dose 20 MG; Start 09/19/16 at 09:00 Miscellaneous Information 1 ea NOTE XX ; Start 09/19/16 at 12:00 Glucose (Glutose) 15 gm Q15M PRN PO DECREASED GLUCOSE; Start 09/19/16 at 12:00 Glucose (Glutose) 22.5 gm Q15M PRN PO DECREASED GLUCOSE; Start 09/19/16 at 12: 00 Dextrose (D50w Syringe) 25 ml Q15M PRN IV DECREASED GLUCOSE; Start 09/19/16 at 12:00 Dextrose (D50w Syringe) 50 ml Q15M PRN IV DECREASED GLUCOSE; Start 09/19/16 at 12:00 Glucagon (Glucagen) 1 mg Q15M PRN IM DECREASED GLUCOSE; Start 09/19/16 at 12: 00 Glucose (Glutose) 15 gm Q15M PRN BUCCAL DECREASED GLUCOSE; Start 09/19/16 at 12:00 Voriconazole 200 mg 200 mg BID PO Last administered on 10/04/16 22:26; Admin Dose 200 MG; Start 09/23/16 at 21:00 Vancomycin HCl (Vancocin) 250 ml @ 125 mls/hr Q96H IVPB Last administered on 10/01/16at 14:58; Admin Dose 125 MLS/HR; Start 09/23/16 at 13:00 Lansoprazole (Prevacid) 30 mg DAILY@06 PO Last administered on 10/05/16 05:20 ; Admin Dose 30 MG; Start 09/27/16 at 06:00 Apixaban (Eliquis) 2.5 mg BID GTB Last administered on 10/04/16at 22:26; Admin Dose 2.5 MG; Start 09/30/16 at 09:00 Metoclopramide HCl (Reglan) 5 mg Q6 IV Last administered on 10/05/16at 05:20; Admin Dose 5 MG; Start 09/30/16 at 12:00 Insulin Aspart (Novolog Insulin Pen) NOVOLOG *MILD* ALGORI... Q6 SC Last administered on 10/03/16at 13:16; Admin Dose 1 UNIT; Start 09/30/16 at 12:00 Metronidazole (Flagyl) 500 mg Q8 PO Last administered on 10/05/16 05:20; Admin Dose 500 MG; Start 10/01/16 at 14:30 CAMDEN FRITZ MD Oct 05, 2016 08:05
[2016-10-05] MEDS: SILDENAFIL 20 MG TAB PO SCH ×3 (09:00→21:00)
[2016-10-05] MEDS: BUDESONIDE (NEB) 0.5MG/2ML AMP HHN SCH ×2 (09:12→20:10)
[2016-10-05] MEDS: LEVETIRACETAM IV 500 MG in DEXTROSE 5% 100 ML IVPB SCH ×2 (09:22→21:59)
[2016-10-05] MEDS: VORICONAZOLE 200 MG TAB PO SCH ×2 (09:22→21:54)
[2016-10-05] MEDS: COLLAGENASE 30 GM TUBE TOP SCH (09:23)
[2016-10-05] MEDS: MUPIROCIN 2% 22 GM OINT TOP SCH ×2 (09:23→21:00)
[2016-10-05] MEDS: APIXABAN 5 MG TABLET GTB SCH ×2 (09:23→21:55)
--- NOTE | 2016-10-05 10:32 | CONS ---
Date/Time of Note Date/Time of Note DATE: 10/05/16 TIME: 10:30 Consult Date/Type/Reason Admit Date/Time Sep 17, 2016 at 18:49 Type of Consultation: GI Subjective The patient remains stable, no acute events noted. No hemoptysis, hematemesis, hematochezia. The patient on hemodialysis today. POC reviewed with dr. jama. Chart/meds/labs reviewed. tolerating meds and therapies. Objective Vital Signs Date Time Temp Pulse Resp B/P Pulse Ox O2 Delivery O2 Flow Rate FiO2 10/05/16 09:21 98 12 96 55 10/05/16 07:01 98.1 92/50 Intake and Output 10/04/16 10/04/16 10/05/16 15:00 23:00 07:00 Intake Total 975 ml 850 ml Balance 975 ml 850 ml Results/Medications Result Diagram: 10/04/16 0530 10/04/16 0530 Results 24 hrs Laboratory Tests Test 10/04/16 12:12 10/04/16 16:55 10/04/16 21:09 10/05/16 01:00 Bedside Glucose 122 104 110 109 Test 10/05/16 05:18 10/05/16 08:17 HEENT: Head is normocephalic. NECK: Supple. HEART: Regular rate. LUNGS: Show diminished breath sounds at the base. ABDOMEN: Soft, nontender to palpation. No rebound or guarding. EXTREMITIES: Negative for clubbing, cyanosis, no edema. DERMATOLOGIC: No rashes. MUSCULOSKELETAL: No joint effusions. NEUROLOGIC: No change in exam. Bedside Glucose 117 112 HEENT: Head is normocephalic. NECK: Supple. HEART: Regular rate. LUNGS: Show diminished breath sounds at the base. ABDOMEN: Soft, nontender to palpation. No rebound or guarding. EXTREMITIES: Negative for clubbing, cyanosis, no edema. DERMATOLOGIC: No rashes. MUSCULOSKELETAL: No joint effusions. NEUROLOGIC: No change in exam. Medications Current Medications Levetiracetam/ Dextrose (Keppra Iv/D5W) 105 ml @ 420 mls/hr Q12 IVPB Last administered on 10/05/16at 09:22; Admin Dose 420 MLS/HR; Start 09/18/16 at 09: 00 Collagenase (Santyl) 1 applic DAILY TOP Last administered on 10/05/16at 09:23; Admin Dose 1 APPLIC; Start 09/18/16 at 09:00 Acetaminophen (Tylenol Liquid) 650 mg Q4H PRN NGT PAIN AND OR ELEVATED TEMP Last administered on 09/29/16at 12:07; Admin Dose 650 MG; Start 09/18/16 at 08: 00 Bisacodyl (Dulcolax Supp) 10 mg DAILY PRN [place] CONSTIPATION; Start 09/18/16 at 08:00 Mupirocin (Bactroban) Apply to bilateral nares ... BID TOP Last administered on 10/05/16at 09:23; Admin Dose 1 APPLIC; Start 09/18/16 at 09:00 Mirtazapine (Remeron) 7.5 mg HS GTB Last administered on 10/04/16at 22:26; Admin Dose 7.5 MG; Start 09/18/16 at 21:00 Ondansetron HCl (Zofran Inj) 4 mg Q4H PRN IV NAUSEA AND/OR VOMITING; Start 08/24 at 08:00 Morphine Sulfate (morphine) 2 mg Q3H PRN IV PAIN LEVEL 6-10 Last administered on 09/28/16at 12:25; Admin Dose 2 MG; Start 09/18/16 at 08:00 Lorazepam (Ativan) 0.5 mg Q3H PRN IV ANXIETY; Start 09/18/16 at 08:00 Amikacin Sulfate (Amikacin Iv Per Pharmacy) PER PHARMACY DOSING NOTE XX ; Start 09/18/16 at 13:00 Vancomycin HCl (Vanco Iv Per Pharmacy) PER PHARMACY DOSING NOTE XX ; Start 08/24 at 13:00 IV Flush (NS 10 ml) 10 ml PRN PRN IV IV PROTOCOL Last administered on at 06:01; Admin Dose 10 ML; Start 09/18/16 at 13:00 Sildenafil Citrate (Revatio) 20 mg TID PO Last administered on 10/04/16at 12:13 ; Admin Dose 20 MG; Start 09/19/16 at 09:00 Miscellaneous Information 1 ea NOTE XX ; Start 09/19/16 at 12:00 Glucose (Glutose) 15 gm Q15M PRN PO DECREASED GLUCOSE; Start 09/19/16 at 12:00 Glucose (Glutose) 22.5 gm Q15M PRN PO DECREASED GLUCOSE; Start 09/19/16 at 12: 00 Dextrose (D50w Syringe) 25 ml Q15M PRN IV DECREASED GLUCOSE; Start 09/19/16 at 12:00 Dextrose (D50w Syringe) 50 ml Q15M PRN IV DECREASED GLUCOSE; Start 09/19/16 at 12:00 Glucagon (Glucagen) 1 mg Q15M PRN IM DECREASED GLUCOSE; Start 09/19/16 at 12: 00 Glucose (Glutose) 15 gm Q15M PRN BUCCAL DECREASED GLUCOSE; Start 09/19/16 at 12:00 Voriconazole 200 mg 200 mg BID PO Last administered on 10/05/16at 09:22; Admin Dose 200 MG; Start 09/23/16 at 21:00 Vancomycin HCl (Vancocin) 250 ml @ 125 mls/hr Q96H IVPB Last administered on 10/01/16at 14:58; Admin Dose 125 MLS/HR; Start 09/23/16 at 13:00 Lansoprazole (Prevacid) 30 mg DAILY@06 PO Last administered on 10/05/16at 05:20 ; Admin Dose 30 MG; Start 09/27/16 at 06:00 Apixaban (Eliquis) 2.5 mg BID GTB Last administered on 10/05/16at 09:23; Admin Dose 2.5 MG; Start 09/30/16 at 09:00 Metoclopramide HCl (Reglan) 5 mg Q6 IV Last administered on 10/05/16at 05:20; Admin Dose 5 MG; Start 09/30/16 at 12:00 Insulin Aspart (Novolog Insulin Pen) NOVOLOG *MILD* ALGORI... Q6 SC Last administered on 10/03/16at 13:16; Admin Dose 1 UNIT; Start 09/30/16 at 12:00 Metronidazole (Flagyl) 500 mg Q8 PO Last administered on 10/05/16at 05:20; Admin Dose 500 MG; Start 10/01/16 at 14:30 Assessment/Plan Chief Complaint/Hosp Course 1. Sepsis, status post shock, etiology is secondary to pneumonia, decubitus wound. The patient remains on antimicrobial antibiotic therapy. The patient has been afebrile now for 48 hours. Repeat cultures have been sent and negative to date. Lactic acid level has been within normal limits. Will current antibiotic regimen. Follow up infectious disease. 2. Leukocytosis, etiology may be multifactorial secondary to infectious versus reactive. White count has been trending down. Continue to monitor. Continue current treatment plan as stated above. 3. End-stage renal disease. The patient had hemodialysis yesterday for hyponatremia and solute clearance. 4. Hypernatremia. improved. multifactorial secondary to end-stage renal disease, free water flushes. Will continue to hold all free water flushes, continue dialysis on a 140 sodium bath. 5. Pulmonary hypertension. Continue sildenafil. 6. Anemia. Continue to monitor H and H levels, continue Epogen. 7. Seizure disorder. Continue Keppra. 8. Decubitus wound. Continue wound care. 9. Diabetes. Continue Accu-Cheks and sliding scale. 10. Dysphagia. PEG tube, tube feeding. 11. Chronic encephalopathy. No change. 12. Coronary artery disease. Continue medical management. 13. History of congestive heart failure, right-sided heart failure. Continue current medical management. 14. History of cerebrovascular accident. 15. Ventilator dependent respiratory failure. Vent settings have been reviewed. ABG has been reviewed. Continue to monitor. 16. Gastrointestinal and deep venous thrombosis prophylaxis. Continue proton pump inhibitor, heparin. Problems: ZEN TORO MD Oct 05, 2016 10:32
[2016-10-05] MEDS: SOD CHLORIDE 0.9% IVPB SCH (15:05)
[2016-10-05] MEDS: AMIKACIN IVPB SCH (15:05)
[2016-10-05] MEDS: EPOETIN 10000 UNITS/1 ML INJ (ESRD) SC SCH (15:07)
[2016-10-05] MEDS: VANCOMYCIN 1 GM in NS 250 ML IVPB SCH (15:08)
--- NOTE | 2016-10-05 15:38 | CONS ---
Date/Time of Note Date/Time of Note DATE: 10/05/16 TIME: 15:35 Assessment/Plan Assessment/Plan Chief Complaint/Hosp Course ID PROGRESS NOTE 24H INTERVAL SUMMARY => Stable overnight, no fevers, VSS, WBC down today, sacral wound changed w/updated PHOTO to chart * noncommunicative/Trach/Peg * S/P HD today MICROBIOLOGY: * Endotracheal aspirate growing multidrug resistant Pseudomonas. * Blood cultures negative * Wound culture of her sacrum growing MRSA. * Urine culture growing Kelly glabrata. INDWELLING: trach, PEG, RIJ Perm-A-Cath, Left upper extremity PICC line placed on 09/18/2016. PHYSICAL EXAMINATION: GENERAL: Looks comfortable resting on Vent / NAD HEENT: Unremarkable NECK: Trach clean CHEST: Rise symmetrical,=> Vented course BS HEART: Pulse RRR ABDOMEN: Soft, benign - Peg EXTREMITIES: Warm, no edema SKIN: STG IV DECUB -> See photos ID ASSESSMENT 81 yo H F w/PMHx Afib, CVA, VDRF-Trach since OCT 2015, Peg, COPD, ESRD admit with: 1. s/p Sepsis w/shock => hypotension on pressors on admission RESOLVED -> Likely GNR from GNR HCAP + DECUB + ?bladder sepsis - anuric * Leukocytosis on admit * Low grade temps on admit 99.7 * Encephalopathy 2/2 #1 2. GNR HCAP = (+PSAR sensitive to Amikacin 3. Right pleural effusion, possibly underlying healthcare-associated pneumonia. 3. Acute decompensated heart failure, right-sided heart failure. Continue ultrafiltration dialysis. 4. Dysfunctional G-tube with NG tube in place. 5. ESRD-> HD w/PermCath 6. Ascites==> s/p paracentesis 09/24===> cx negative 7. STG IV coccygeal decub present on admission * Wound Cx(+)MRSA 8. (+)Glabrata UTI -> Urostasis 2nd anuric 9. Oral candidiasis ( + )MRSA Nares ->Bactroban INVASIVES: PICC (09/18), Trach, Peg, NGT, PermCath ABX ALLERGY: PCN/SULFA CURRENT ABX: ABX => Vanco IV + Amikacin + VFEND + Flagyl ID RECOMMENDATIONS Slow clinical improvement -- continue current ABX Further recs per ID team follow up and clinical course . . Problems: Consultation Date/Type/Reason Admit Date/Time Sep 17, 2016 at 18:49 Type of Consultation: ID Exam/Review of Systems Vital Signs Vitals Vital Signs Date Time Temp Pulse Resp B/P Pulse Ox O2 Delivery O2 Flow Rate FiO2 10/05/16 15:12 98.3 90 16 105/50 96 10/05/16 13:48 55 Intake and Output 10/04/16 10/04/16 10/05/16 15:00 23:00 07:00 Intake Total 975 ml 850 ml Balance 975 ml 850 ml Results Result Diagram: 10/04/16 0530 10/04/16 0530 Results 24 hrs Laboratory Tests Test 10/04/16 16:55 10/04/16 21:09 10/05/16 01:00 10/05/16 05:18 Bedside Glucose 104 110 109 117 Test 10/05/16 08:17 10/05/16 11:35 Bedside Glucose 112 114 Medications Medications Current Medications Levetiracetam/ Dextrose (Keppra Iv/D5W) 105 ml @ 420 mls/hr Q12 IVPB Last administered on 10/05/16at 09:22; Admin Dose 420 MLS/HR; Start 09/18/16 at 09: 00 Collagenase (Santyl) 1 applic DAILY TOP Last administered on 10/05/16at 09:23; Admin Dose 1 APPLIC; Start 09/18/16 at 09:00 Acetaminophen (Tylenol Liquid) 650 mg Q4H PRN NGT PAIN AND OR ELEVATED TEMP Last administered on 09/29/16at 12:07; Admin Dose 650 MG; Start 09/18/16 at 08: 00 Bisacodyl (Dulcolax Supp) 10 mg DAILY PRN [place] CONSTIPATION; Start 09/18/16 at 08:00 Mupirocin (Bactroban) Apply to bilateral nares ... BID TOP Last administered on 10/05/16at 09:23; Admin Dose 1 APPLIC; Start 09/18/16 at 09:00 Mirtazapine (Remeron) 7.5 mg HS GTB Last administered on 10/04/16at 22:26; Admin Dose 7.5 MG; Start 09/18/16 at 21:00 Ondansetron HCl (Zofran Inj) 4 mg Q4H PRN IV NAUSEA AND/OR VOMITING; Start 08/24 at 08:00 Morphine Sulfate (morphine) 2 mg Q3H PRN IV PAIN LEVEL 6-10 Last administered on 09/28/16at 12:25; Admin Dose 2 MG; Start 09/18/16 at 08:00 Lorazepam (Ativan) 0.5 mg Q3H PRN IV ANXIETY; Start 09/18/16 at 08:00 Amikacin Sulfate (Amikacin Iv Per Pharmacy) PER PHARMACY DOSING NOTE XX ; Start 09/18/16 at 13:00 Vancomycin HCl (Vanco Iv Per Pharmacy) PER PHARMACY DOSING NOTE XX ; Start 08/24 at 13:00 IV Flush (NS 10 ml) 10 ml PRN PRN IV IV PROTOCOL Last administered on at 06:01; Admin Dose 10 ML; Start 09/18/16 at 13:00 Sildenafil Citrate (Revatio) 20 mg TID PO Last administered on 10/04/16at 12:13 ; Admin Dose 20 MG; Start 09/19/16 at 09:00 Miscellaneous Information 1 ea NOTE XX ; Start 09/19/16 at 12:00 Glucose (Glutose) 15 gm Q15M PRN PO DECREASED GLUCOSE; Start 09/19/16 at 12:00 Glucose (Glutose) 22.5 gm Q15M PRN PO DECREASED GLUCOSE; Start 09/19/16 at 12: 00 Dextrose (D50w Syringe) 25 ml Q15M PRN IV DECREASED GLUCOSE; Start 09/19/16 at 12:00 Dextrose (D50w Syringe) 50 ml Q15M PRN IV DECREASED GLUCOSE; Start 09/19/16 at 12:00 Glucagon (Glucagen) 1 mg Q15M PRN IM DECREASED GLUCOSE; Start 09/19/16 at 12: 00 Glucose (Glutose) 15 gm Q15M PRN BUCCAL DECREASED GLUCOSE; Start 09/19/16 at 12:00 Voriconazole 200 mg 200 mg BID PO Last administered on 10/05/16at 09:22; Admin Dose 200 MG; Start 09/23/16 at 21:00 Vancomycin HCl (Vancocin) 250 ml @ 125 mls/hr Q96H IVPB Last administered on 10/05/16 15:08; Admin Dose 125 MLS/HR; Start 09/23/16 at 13:00 Lansoprazole (Prevacid) 30 mg DAILY@06 PO Last administered on 10/05/16 05:20 ; Admin Dose 30 MG; Start 09/27/16 at 06:00 Apixaban (Eliquis) 2.5 mg BID GTB Last administered on 10/05/16at 09:23; Admin Dose 2.5 MG; Start 09/30/16 at 09:00 Metoclopramide HCl (Reglan) 5 mg Q6 IV Last administered on 10/05/16 12:06; Admin Dose 5 MG; Start 09/30/16 at 12:00 Insulin Aspart (Novolog Insulin Pen) NOVOLOG *MILD* ALGORI... Q6 SC Last administered on 10/03/16 13:16; Admin Dose 1 UNIT; Start 09/30/16 at 12:00 Metronidazole (Flagyl) 500 mg Q8 PO Last administered on 10/05/16at 12:06; Admin Dose 500 MG; Start 10/01/16 at 14:30 JOEY RODRIGUEZ NP Oct 05, 2016 15:38
--- NOTE | 2016-10-05 15:43 | PN ---
DATE: 10/05/2016 SUBJECTIVE: Ms. Arrington is a little more somnolent this morning, but no evidence of respiratory di stress. PHYSICAL EXAMINATION: VITAL SIGNS: Temperature 97, pulse 87, blood pressure 94/44, O2 saturation 95% on 50%, FIO2. NECK: Trach site clean and intact. CARDIAC: S1, S2, no added sounds or murmurs. CHEST: Diminished air entry bilaterally at both bases. ABDOMEN: Mildly distended, soft, nontender. No guarding or rebound. EXTREMITIES: No cyanosis, clubbing, 2+ edema. NEUROLOGIC: Generalized weakness. LABORATORY DATA: White count 11.1, hemoglobin 8.9, platelets 231. Chemistry within normal limits e xcept for BUN of 36, creatinine 1.7. IMPRESSION AND PLAN: 1. Respiratory failure. 2. Chronic encephalopathy. 3. Mild renal insufficiency. 4. Resolving leukocytosis secondary to polymicrobial sepsis. 5. End-stage renal failure on hemodialysis. The patient will require: 1. Vent support. 2. Antibiotics. 3. Continue hemodialysis. 4. Tube feeding. 5. Consider transfer back to [facility] facility. Dictated By: JULIA SNYDER/ARNOLDO Conf#: [id number] DID#: [id number]
[2016-10-05] MEDS: MIRTAZAPINE 15 MG TAB GTB SCH (21:54)
[2016-10-06] VITALS (25 sets, daily range): BP systolic 87–139; BP diastolic 37–63; PULSE 78–105; RESP 13–42
[2016-10-06] MEDS: IPRATROPIUM (HFA) 12.9 GM INHALER INH SCH ×6 (00:19→20:47)
[2016-10-06] MEDS: LEVALBUTEROL (HFA) 15 GM INHALER INH SCH ×6 (00:19→20:47)
[2016-10-06] MEDS: METOCLOPRAMIDE 10 MG INJ IV SCH ×5 (00:21→23:47)
[2016-10-06] MEDS: LANSOPRAZOLE 30 MG CAP PO SCH (05:44)
[2016-10-06] MEDS: metroNIDAZOLE 500 MG TAB PO SCH ×3 (05:44→21:31)
[2016-10-06] MEDS: INSULIN ASPART [NOVOLOG] 3 ML PEN SC SCH ×5 (05:46→23:50)
[2016-10-06] MEDS: VORICONAZOLE 200 MG TAB PO SCH ×2 (08:38→21:32)
[2016-10-06] MEDS: LEVETIRACETAM IV 500 MG in DEXTROSE 5% 100 ML IVPB SCH ×2 (08:38→21:30)
[2016-10-06] MEDS: APIXABAN 5 MG TABLET GTB SCH ×2 (08:38→21:32)
[2016-10-06] MEDS: MUPIROCIN 2% 22 GM OINT TOP SCH ×2 (08:39→21:33)
[2016-10-06] MEDS: SILDENAFIL 20 MG TAB PO SCH ×3 (08:39→21:00)
[2016-10-06] MEDS: COLLAGENASE 30 GM TUBE TOP SCH (08:41)
--- NOTE | 2016-10-06 09:31 | RADRPT ---
PROCEDURE: US Abdomen limited . CLINICAL INDICATION: Ascites TECHNIQUE: Multiple real-time images were acquired of the patient's abdomen utilizing a high resol ution transducer. COMPARISON: 10/01/2016 FINDINGS: There is a small to moderate amount of ascites. RPTAT: AA IMPRESSION: Small to moderate amount of ascites. .Liborio Renner MD, MD Date Time Electronically viewed and signed by .Liborio Renner MD, MD on 10/06/2016 09:30 .S/
[2016-10-06] MEDS: BUDESONIDE (NEB) 0.5MG/2ML AMP HHN SCH ×2 (09:33→20:00)
--- NOTE | 2016-10-06 10:23 | PN ---
DATE: 10/06/2016 SUBJECTIVE: The patient had hemodialysis yesterday, tolerated well with 1.5 liters removed. This m orning, the patient was noted to be hypertensive with systolic pressures in the 80s. The patient al so complained of some mild abdominal discomfort. No other events noted. OBJECTIVE: VITAL SIGNS: Blood pressure 87/48, respirations 16, pulse 75, temperature 97.9. I's AND O'S: The patient had 2.3 liters in, 1.5 liters out. HEENT: Head is normocephalic. NECK: Supple. HEART: Regular rate. LUNGS: Show diminished breath sounds at base. ABDOMEN: Distended, soft. EXTREMITIES: Negative for clubbing, cyanosis, or edema. DERMATOLOGIC: No rashes. MUSCULOSKELETAL: Positive decubitus wound. No change. NEUROLOGIC: No change in exam. MEDICATIONS: Reviewed. LABORATORY DATA: Has been reviewed. No new labs. ASSESSMENT AND PLAN: 1. Sepsis, status post shock, etiology secondary to pneumonia, decubitus wound. The patient is cli nically improving. His white count is trending down. The patient has remained afebrile. We will c ontinue current antimicrobial therapy, continue to monitor closely. 2. Leukocytosis, etiology is likely secondary to underlying infection versus reactive. WBC has bee n trending down. Continue to monitor. 3. End-stage renal disease. The patient had hemodialysis yesterday, tolerated well. Plan for dial ysis tomorrow. 4. Hyponatremia secondary to end-stage renal disease, resolved. Continue to monitor. Continue to limit free water flushes. 5. Abdominal distention, possibly related to ascites, will check abdominal ultrasound and monitor. 6. Hypertension, etiology may have been secondary to volume depletion from dialysis. Continue to m onitor closely. If blood pressure remains low, will consider gentle fluid challenge. Will hold nancy denafil at this time. 7. Pulmonary hypertension. The patient is on sildenafil and we will hold in the setting of hyperte nsion. 8. Anemia. Continue to monitor hemoglobin and hematocrit levels. Continue Epogen. 9. Seizure disorder. Continue Keppra. 10. Decubitus wound. Continue wound care. 11. Diabetes. Continue Accu-Cheks and sliding scale. 12. . Continue tube feeding. 13. Chronic encephalopathy. No change. 14. Coronary artery disease. Continue medical management. 15. Arrhythmia. The patient is currently sinus rhythm. Continue medical management. Continue Tram noemy. 16. History of congestive heart failure. Continue current medical management. 17. History of cerebrovascular accident. 18. Ventilator dependent respiratory failure. Vent settings have been reviewed. ABG has been revi ewed. Continue to monitor. 19. Gastrointestinal and deep vein thrombosis prophylaxis. Continue proton pump inhibitor and Eliq uis. Dictated By: RUDDY BUSTILLOS/ARNOLDO Conf#: [id number] DID#: [id number]
--- NOTE | 2016-10-06 14:22 | CONS ---
Date/Time of Note Date/Time of Note DATE: 10/06/16 TIME: 14:20 Consult Date/Type/Reason Admit Date/Time Sep 17, 2016 at 18:49 Type of Consultation: ID Subjective no acute changes, no fevers, lying comfortably in bed Objective Vital Signs Date Time Temp Pulse Resp B/P Pulse Ox O2 Delivery O2 Flow Rate FiO2 10/06/16 12:22 90 10/06/16 11:30 42 97 55 10/06/16 11:20 96.1 99/45 Intake and Output 10/05/16 10/05/16 10/06/16 15:00 23:00 07:00 Intake Total 500 ml 975 ml 900 ml Output Total 1500 ml Balance -1000 ml 975 ml 900 ml Results/Medications Result Diagram: 10/04/1652910/04/16529 Results 24 hrs Laboratory Tests Test 10/05/16 17:04 10/05/16 23:11 10/06/16 05:29 10/06/16 12:01 Bedside Glucose 101 120 123 121 Medications Current Medications Levetiracetam/ Dextrose (Keppra Iv/D5W) 105 ml @ 420 mls/hr Q12 IVPB Last administered on 10/06/16at 08:38; Admin Dose 420 MLS/HR; Start 09/18/16 at 09: 00 Collagenase (Santyl) 1 applic DAILY TOP Last administered on 10/06/16at 08:41; Admin Dose 1 APPLIC; Start 09/18/16 at 09:00 Acetaminophen (Tylenol Liquid) 650 mg Q4H PRN NGT PAIN AND OR ELEVATED TEMP Last administered on 09/29/16at 12:07; Admin Dose 650 MG; Start 09/18/16 at 08: 00 Bisacodyl (Dulcolax Supp) 10 mg DAILY PRN [place] CONSTIPATION; Start 09/18/16 at 08:00 Mupirocin (Bactroban) Apply to bilateral nares ... BID TOP Last administered on 10/06/16at 08:39; Admin Dose 1 APPLIC; Start 09/18/16 at 09:00 Mirtazapine (Remeron) 7.5 mg HS GTB Last administered on 10/05/16at 21:54; Admin Dose 7.5 MG; Start 09/18/16 at 21:00 Ondansetron HCl (Zofran Inj) 4 mg Q4H PRN IV NAUSEA AND/OR VOMITING; Start 08/24 at 08:00 Morphine Sulfate (morphine) 2 mg Q3H PRN IV PAIN LEVEL 6-10 Last administered on 09/28/16at 12:25; Admin Dose 2 MG; Start 09/18/16 at 08:00 Lorazepam (Ativan) 0.5 mg Q3H PRN IV ANXIETY; Start 09/18/16 at 08:00 Amikacin Sulfate (Amikacin Iv Per Pharmacy) PER PHARMACY DOSING NOTE XX ; Start 09/18/16 at 13:00 Vancomycin HCl (Vanco Iv Per Pharmacy) PER PHARMACY DOSING NOTE XX ; Start 08/24 at 13:00 IV Flush (NS 10 ml) 10 ml PRN PRN IV IV PROTOCOL Last administered on at 06:01; Admin Dose 10 ML; Start 09/18/16 at 13:00 Sildenafil Citrate (Revatio) 20 mg TID PO Last administered on 10/04/16at 12:13 ; Admin Dose 20 MG; Start 09/19/16 at 09:00 Miscellaneous Information 1 ea NOTE XX ; Start 09/19/16 at 12:00 Glucose (Glutose) 15 gm Q15M PRN PO DECREASED GLUCOSE; Start 09/19/16 at 12:00 Glucose (Glutose) 22.5 gm Q15M PRN PO DECREASED GLUCOSE; Start 09/19/16 at 12: 00 Dextrose (D50w Syringe) 25 ml Q15M PRN IV DECREASED GLUCOSE; Start 09/19/16 at 12:00 Dextrose (D50w Syringe) 50 ml Q15M PRN IV DECREASED GLUCOSE; Start 09/19/16 at 12:00 Glucagon (Glucagen) 1 mg Q15M PRN IM DECREASED GLUCOSE; Start 09/19/16 at 12: 00 Glucose (Glutose) 15 gm Q15M PRN BUCCAL DECREASED GLUCOSE; Start 09/19/16 at 12:00 Voriconazole 200 mg 200 mg BID PO Last administered on 10/06/16at 08:38; Admin Dose 200 MG; Start 09/23/16 at 21:00 Vancomycin HCl (Vancocin) 250 ml @ 125 mls/hr Q96H IVPB Last administered on 10/05/16at 15:08; Admin Dose 125 MLS/HR; Start 09/23/16 at 13:00 Lansoprazole (Prevacid) 30 mg DAILY@06 PO Last administered on 10/06/16at 05:44 ; Admin Dose 30 MG; Start 09/27/16 at 06:00 Apixaban (Eliquis) 2.5 mg BID GTB Last administered on 10/06/16at 08:38; Admin Dose 2.5 MG; Start 09/30/16 at 09:00 Metoclopramide HCl (Reglan) 5 mg Q6 IV Last administered on 10/06/16at 13:08; Admin Dose 5 MG; Start 09/30/16 at 12:00 Insulin Aspart (Novolog Insulin Pen) NOVOLOG *MILD* ALGORI... Q6 SC Last administered on 10/03/16at 13:16; Admin Dose 1 UNIT; Start 09/30/16 at 12:00 Metronidazole (Flagyl) 500 mg Q8 PO Last administered on 10/06/16at 13:08; Admin Dose 500 MG; Start 10/01/16 at 14:30 Assessment/Plan Chief Complaint/Hosp Course MICROBIOLOGY: Endotracheal aspirate growing multidrug resistant Pseudomonas. Blood cultures negative, wound culture of her sacrum growing MRSA. Urine culture growing Kelly glabrata. INDWELLING: trach, PEG, RIJ Perm-A-Cath, Left upper extremity PICC line placed on 09/18/2016. ANTIMICROBIALS: 1. Amikacin. 2. Vancomycin. 3. Vfend 4. Flagyl PHYSICAL EXAMINATION: GENERAL: Fragile, chronically ill-appearing, elderly woman who is lying comfortably in bed. HEENT: Head atraumatic, normocephalic. Sclerae anicteric. Buccal mucosa dry. NECK: Supple. Tracheostomy present. CHEST: Rise symmetrical. Breath sounds diminished to bases. HEART: S1, S2. ABDOMEN: Soft, bowel tones present. EXTREMITIES: Without cyanosis. ASSESSMENT: 1. Ongoing sepsis, status post shock. 2. Healthcare-associated pneumonia with parapneumonic pleural effusion and sputum culture growing multi-drug resistant Pseudomonas aeruginosa. 3. Methicillin-resistant Staphylococcus aureus infected decubitus. 4. Kelly glabrata urinary tract infection. 5. Methicillin-resistant Staphylococcus aureus nares colonization. 6. End-stage renal disease, hemodialysis dependent. 7. History of cerebrovascular accident. 8. Ascites==> s/p paracentesis 09/24===> cx negative 9. Sacral decub, poss OM 10. ALLERGY TO PENICILLIN AND SULFA. PLAN: Clinically unchanged, wbx tracing down, continue abx, topical Bactroban to nares, local wound care [facility] staff Problems: RAISSA ROA NP Oct 06, 2016 14:22
--- NOTE | 2016-10-06 17:16 | PN ---
DATE: REASON FOR FOLLOWUP: Respiratory failure. The patient remains stable overnight. No new events. PHYSICAL EXAMINATION: VITAL SIGNS: Temperature 96.1, pulse is 90, blood pressure 99/45, O2 saturation 96%, FIO2 of 55%. NECK: Supple. No JVD or lymphadenopathy. CARDIAC: S1, S2, no added sounds or murmurs. CHEST: Diminished air entry bilaterally. ABDOMEN: Soft, nontender. No guarding or rebound. EXTREMITIES: No cyanosis, clubbing, 1+ edema. NEUROLOGIC: Generalized weakness. LABORATORY DATA: Not drawn today. IMPRESSION AND PLAN: 1. Vent dependent respiratory failure. 2. Status post septic shock, polymicrobial. 3. End-stage renal failure on hemodialysis. 4. History of pulmonary hypertension. 5. Seizure disorder. 6. Decubitus ulcers. Patient to continue with: 1. Vent support. 2. Continue with . 3. Continue with deep venous thrombosis and gastrointestinal prophylaxis. 4. Continue with the tube feeding. Dictated By: JULIA SNYDER/ARNOLDO Conf#: [id number] DID#: [id number]
--- NOTE | 2016-10-06 17:40 | CONS ---
Date/Time of Note Date/Time of Note DATE: 10/06/16 TIME: 17:39 Assessment/Plan Assessment/Plan Additional Assessment/Plan Assessment/Plan Chief Complaint/Hosp Course ASSESSMENT: 1. Renal failure on dialysis. 2. Vent dependent respiratory failure. 3. Chronic obstructive pulmonary disease. 4. Atrial fibrillation. 5. Ascites, successful paracentesis done. 6. Dysphagia 7. G-tube site leakage and cellulitis, improving 8. Anemia: stable, likely from anemia of chronic disease 9. Status post septic shock. 10. Diabetes mellitus. 11. Decubitus ulcer. 12. Congestive heart failure. 13. Seizure disorder. 14. pneumonia,s/p sepsis Plan continue antibiotics per ID Reglan for gastroparesis Bactroban to g tube site. Routine G-tube site care appreciate wound nurse management of G-tube site GI plan d/w female family member who is at bedside. Consultation Date/Type/Reason Admit Date/Time Sep 17, 2016 at 18:49 Type of Consultation: ID 24 HR Interval Summary Constitutional: improved, no complaints Exam/Review of Systems Vital Signs Vitals Vital Signs Date Time Temp Pulse Resp B/P Pulse Ox O2 Delivery O2 Flow Rate FiO2 10/06/16 17:29 98 10/06/16 15:40 14 97 55 10/06/16 15:36 96.9 107/53 Intake and Output 10/05/16 10/05/16 10/06/16 15:00 23:00 07:00 Intake Total 500 ml 975 ml 900 ml Output Total 1500 ml Balance -1000 ml 975 ml 900 ml Exam Constitutional: alert, oriented, well developed Psych: nl mood/affect, no complaints Head: atraumatic, normocephalic Eyes: EOMI, PERRL, nl conjunctiva, nl lids, nl sclera ENMT: nl external ears & nose, nl lips & teeth, nl nasal mucosa & septum Neck: non-tender, supple Respiratory: clear to auscultation, normal air movement Cardiovascular: nl pulses, regular rate and rhythm Gastrointestinal: nl liver, spleen, non-tender, soft Musculoskeletal: nl extremities to inspection, nl gait and stance Extremities: normal pulses 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, nl mental status, nl speech, nl strength Skin: nl turgor, No rash or lesions Lymph: nl lymph nodes Results Result Diagram: 10/04/16 0530 10/04/16 0530 Results 24 hrs Laboratory Tests Test 10/05/16 23:11 10/06/16 05:29 10/06/16 12:01 10/06/16 17:19 Bedside Glucose 120 123 121 93 Medications Medications Current Medications Levetiracetam/ Dextrose (Keppra Iv/D5W) 105 ml @ 420 mls/hr Q12 IVPB Last administered on 10/06/16at 08:38; Admin Dose 420 MLS/HR; Start 09/18/16 at 09: 00 Collagenase (Santyl) 1 applic DAILY TOP Last administered on 10/06/16at 08:41; Admin Dose 1 APPLIC; Start 09/18/16 at 09:00 Acetaminophen (Tylenol Liquid) 650 mg Q4H PRN NGT PAIN AND OR ELEVATED TEMP Last administered on 09/29/16at 12:07; Admin Dose 650 MG; Start 09/18/16 at 08: 00 Bisacodyl (Dulcolax Supp) 10 mg DAILY PRN [place] CONSTIPATION; Start 09/18/16 at 08:00 Mupirocin (Bactroban) Apply to bilateral nares ... BID TOP Last administered on 10/06/16at 08:39; Admin Dose 1 APPLIC; Start 09/18/16 at 09:00 Mirtazapine (Remeron) 7.5 mg HS GTB Last administered on 10/05/16at 21:54; Admin Dose 7.5 MG; Start 09/18/16 at 21:00 Ondansetron HCl (Zofran Inj) 4 mg Q4H PRN IV NAUSEA AND/OR VOMITING; Start 08/24 at 08:00 Morphine Sulfate (morphine) 2 mg Q3H PRN IV PAIN LEVEL 6-10 Last administered on 09/28/16at 12:25; Admin Dose 2 MG; Start 09/18/16 at 08:00 Lorazepam (Ativan) 0.5 mg Q3H PRN IV ANXIETY; Start 09/18/16 at 08:00 Amikacin Sulfate (Amikacin Iv Per Pharmacy) PER PHARMACY DOSING NOTE XX ; Start 09/18/16 at 13:00 Vancomycin HCl (Vanco Iv Per Pharmacy) PER PHARMACY DOSING NOTE XX ; Start 08/24 at 13:00 IV Flush (NS 10 ml) 10 ml PRN PRN IV IV PROTOCOL Last administered on at 06:01; Admin Dose 10 ML; Start 09/18/16 at 13:00 Sildenafil Citrate (Revatio) 20 mg TID PO Last administered on 10/04/16at 12:13 ; Admin Dose 20 MG; Start 09/19/16 at 09:00 Miscellaneous Information 1 ea NOTE XX ; Start 09/19/16 at 12:00 Glucose (Glutose) 15 gm Q15M PRN PO DECREASED GLUCOSE; Start 09/19/16 at 12:00 Glucose (Glutose) 22.5 gm Q15M PRN PO DECREASED GLUCOSE; Start 09/19/16 at 12: 00 Dextrose (D50w Syringe) 25 ml Q15M PRN IV DECREASED GLUCOSE; Start 09/19/16 at 12:00 Dextrose (D50w Syringe) 50 ml Q15M PRN IV DECREASED GLUCOSE; Start 09/19/16 at 12:00 Glucagon (Glucagen) 1 mg Q15M PRN IM DECREASED GLUCOSE; Start 09/19/16 at 12: 00 Glucose (Glutose) 15 gm Q15M PRN BUCCAL DECREASED GLUCOSE; Start 09/19/16 at 12:00 Voriconazole 200 mg 200 mg BID PO Last administered on 10/06/16at 08:38; Admin Dose 200 MG; Start 09/23/16 at 21:00 Vancomycin HCl (Vancocin) 250 ml @ 125 mls/hr Q96H IVPB Last administered on 10/05/16at 15:08; Admin Dose 125 MLS/HR; Start 09/23/16 at 13:00 Lansoprazole (Prevacid) 30 mg DAILY@06 PO Last administered on 10/06/16at 05:44 ; Admin Dose 30 MG; Start 09/27/16 at 06:00 Apixaban (Eliquis) 2.5 mg BID GTB Last administered on 10/06/16at 08:38; Admin Dose 2.5 MG; Start 09/30/16 at 09:00 Metoclopramide HCl (Reglan) 5 mg Q6 IV Last administered on 10/06/16at 13:08; Admin Dose 5 MG; Start 09/30/16 at 12:00 Insulin Aspart (Novolog Insulin Pen) NOVOLOG *MILD* ALGORI... Q6 SC Last administered on 10/03/16at 13:16; Admin Dose 1 UNIT; Start 09/30/16 at 12:00 Metronidazole (Flagyl) 500 mg Q8 PO Last administered on 10/06/16at 13:08; Admin Dose 500 MG; Start 10/01/16 at 14:30 ANNABEL CISSE MD Oct 06, 2016 17:39
[2016-10-06] MEDS: MIRTAZAPINE 15 MG TAB GTB SCH (21:31)
--- NOTE | 2016-10-06 21:50 | PN ---
DATE: 10/06/2016 CARDIOLOGY FOLLOWUP SUBJECTIVE: The patient remains in atrial fibrillation. ____ abdominal pain, unimproved. No chest pain or pressure. Remains on the vent. Discussed with the staff and family member. MEDICATIONS: Reviewed. PHYSICAL EXAMINATION: VITAL SIGNS: Temperature 96.9, heart rate of 98, blood pressure 107/53, respiratory rate of 14. Sa turating 97%. HEENT: Normocephalic, atraumatic. Thin female. Status post tracheostomy, on the vent. CARDIOVASCULAR: Regular rate and rhythm. Systolic and diastolic murmur. PULMONARY: With no wheezes. GASTROINTESTINAL: Distended. Positive status post PEG. No rebound or guarding. EXTREMITIES: Positive edema. NEUROLOGIC: Awake, responds appropriately. PSYCHIATRIC: Appears to be calm and pleasant. LABORATORY: WBC 11.1, hemoglobin 8.9, platelets of 231. Sodium 135, potassium 4.1, BUN of 36, crea tinine 1.7. Abdominal ultrasound today shows small to moderate ascites. ASSESSMENT AND PLAN: 1. Hypoxic respiratory failure, status post tracheostomy, on the vent. 2. Atrial fibrillation. 3. Renal failure on dialysis. 4. Hyponatremia. 5. Abdominal ascites. 6. Pulmonary hypertension. RECOMMENDATIONS: We will continue with the current cardiac care. Follow with GI recommendation. V ent will be continued. We will monitor on telemetry and adjust the heart rate as needed. Dictated By: AMANDA LARA/ARNOLDO Conf#: [id number] DID#: [id number] CC: RUDDY GEE DO; EWA MELISSA DO;*EndCC*
[2016-10-07] VITALS (31 sets, daily range): BP systolic 91–124; BP diastolic 32–73; PULSE 80–112; RESP 13–22
[2016-10-07] MEDS: LEVALBUTEROL (HFA) 15 GM INHALER INH SCH ×6 (01:28→20:39)
[2016-10-07] MEDS: IPRATROPIUM (HFA) 12.9 GM INHALER INH SCH ×6 (01:29→20:39)
[2016-10-07] MEDS: INSULIN ASPART [NOVOLOG] 3 ML PEN SC SCH ×3 (06:00→17:16)
[2016-10-07] MEDS: metroNIDAZOLE 500 MG TAB PO SCH ×3 (06:14→21:16)
[2016-10-07] MEDS: LANSOPRAZOLE 30 MG CAP PO SCH (06:14)
[2016-10-07] MEDS: METOCLOPRAMIDE 10 MG INJ IV SCH ×3 (06:15→17:15)
[2016-10-07 07:19] LABS: POTASSIUM 5.4 mmol/L (3.5-5.1)
[2016-10-07 07:22] LABS: CREATININE 1.78 mg/dl (0.44-1.00)
[2016-10-07 07:23] LABS: CALCIUM 7.9 mg/dl (8.4-10.2); MAGNESIUM 2.3 mg/dl (1.7-2.5); PHOSPHORUS 2.3 mg/dl (2.5-4.9)
[2016-10-07] MEDS: SILDENAFIL 20 MG TAB PO SCH ×3 (09:00→21:00)
[2016-10-07] MEDS: VORICONAZOLE 200 MG TAB PO SCH ×2 (09:09→21:17)
[2016-10-07] MEDS: MUPIROCIN 2% 22 GM OINT TOP SCH ×2 (09:09→21:24)
[2016-10-07] MEDS: COLLAGENASE 30 GM TUBE TOP SCH (09:09)
[2016-10-07] MEDS: APIXABAN 5 MG TABLET GTB SCH ×2 (09:09→21:17)
[2016-10-07 09:16] LABS: BASOPHILS % 0.2 % (0.0-2.0); EOSINOPHILS # 0.1 10^3/ul (0.0-0.5); EOSINOPHILS % 0.6 % (0.0-7.0); HEMATOCRIT 28.4 % (37.0-47.0); LYMPHOCYTES # 1.6 10^3/ul (0.8-2.9); LYMPHOCYTES % 13.7 % (15.0-51.0); MEAN CORPUSCULAR HEMOGLOBIN 30.8 pg (29.0-33.0); MEAN CORPUSCULAR HGB CONC 31.6 g/dl (32.0-37.0); MEAN CORPUSCULAR VOLUME 97.2 fl (82.0-101.0); MEAN PLATELET VOLUME 7.8 fl (7.4-10.4); MONOCYTE # 0.7 10^3/ul (0.3-0.9); MONOCYTES % 6.2 % (0.0-11.0); NEUTROPHIL # 9.4 10^3/ul (1.6-7.5); NEUTROPHILS % 79.3 % (39.0-77.0); PLATELET COUNT 213 10^3/UL (140-440); RED BLOOD COUNT 2.92 10^6/ul (4.20-5.40); RED CELL DISTRIBUTION WIDTH 18.5 % (11.5-14.5); UNCORRECTED WBC 11.8 10^3/ul (4.8-10.8); WHITE BLOOD COUNT 11.8 10^3/ul (4.8-10.8)
[2016-10-07] MEDS: LEVETIRACETAM IV 500 MG in DEXTROSE 5% 100 ML IVPB SCH ×2 (09:20→21:16)
[2016-10-07 09:22] LABS: CONDITION 1; LH ANALYZER COMMENTS 1
--- NOTE | 2016-10-07 10:05 | CONS ---
Date/Time of Note Date/Time of Note DATE: 10/07/16 TIME: 10:04 Assessment/Plan Assessment/Plan Additional Assessment/Plan Chief Complaint/Hosp Course ASSESSMENT: 1. Renal failure on dialysis. 2. Vent dependent respiratory failure. 3. Chronic obstructive pulmonary disease. 4. Atrial fibrillation. 5. Ascites, successful paracentesis done. 6. Dysphagia 7. G-tube site leakage and cellulitis, improving 8. Anemia: stable, likely from anemia of chronic disease 9. Status post septic shock. 10. Diabetes mellitus. 11. Decubitus ulcer. 12. Congestive heart failure. 13. Seizure disorder. 14. pneumonia,s/p sepsis 15.pulmonary hypertension Plan continue antibiotics per ID Reglan for gastroparesis Bactroban to g tube site. Routine G-tube site care appreciate wound nurse management of G-tube site no dressing around g tube site. GI plan d/w female family member who is at bedside. Consultation Date/Type/Reason Admit Date/Time Sep 17, 2016 at 18:49 Type of Consultation: ID [id number] HR Interval Summary Constitutional: improved, no complaints Exam/Review of Systems Vital Signs Vitals Vital Signs Date Time Temp Pulse Resp B/P Pulse Ox O2 Delivery O2 Flow Rate FiO2 10/07/16 09:10 94 13 98 50 10/07/16 06:50 96.4 117/54 Intake and Output 10/06/16 10/06/16 10/07/16 15:00 23:00 07:00 Intake Total 105 ml 805 ml 660 ml Balance 105 ml 805 ml 660 ml Exam Constitutional: alert, oriented, well developed Psych: nl mood/affect, no complaints Head: atraumatic, normocephalic Eyes: EOMI, PERRL, nl conjunctiva, nl lids, nl sclera ENMT: nl external ears & nose, nl lips & teeth, nl nasal mucosa & septum Neck: non-tender, supple Respiratory: clear to auscultation, normal air movement Cardiovascular: nl pulses, regular rate and rhythm Gastrointestinal: nl liver, spleen, non-tender, soft Musculoskeletal: nl extremities to inspection, nl gait and stance Extremities: normal pulses Neurological: 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 intact, nl mental status, nl speech, nl strength Skin: nl turgor, No rash or lesions Lymph: nl lymph nodes Results Result Diagram: 11/29/16 0625 11/29/16 0625 Results 24 hrs Laboratory Tests Test 10/06/16 12:01 10/06/16 17:19 10/06/16 23:50 10/07/16 06:17 Bedside Glucose 121 93 104 123 Test 10/07/16 06:25 Anion Gap 9 Basophils # 0.0 Basophils % 0.2 Blood Morphology Comment Blood Urea Nitrogen 62 H Calcium Level 7.9 L Carbon Dioxide Level 31 Chloride Level 95 L Creatinine 1.78 H Eosinophils # 0.1 Eosinophils % 0.6 Glucose Level 101 Hematocrit 28.4 L Hemoglobin 9.0 L Lymphocytes # 1.6 Lymphocytes % 13.7 L Magnesium Level 2.3 Mean Corpuscular Hemoglobin 30.8 Mean Corpuscular Hemoglobin Concent 31.6 L Mean Corpuscular Volume 97.2 Mean Platelet Volume 7.8 Monocytes # 0.7 Monocytes % 6.2 Neutrophils # 9.4 H Neutrophils % 79.3 H Nucleated Red Blood Cells # 0.0 Nucleated Red Blood Cells % 0.0 Phosphorus Level 2.3 L Platelet Count 213 Potassium Level 5.4 H Red Blood Count 2.92 L Red Cell Distribution Width 18.5 H Sodium Level 130 L White Blood Count 11.8 H Medications Medications Current Medications Levetiracetam/ Dextrose (Keppra Iv/D5W) 105 ml @ 420 mls/hr Q12 IVPB Last administered on 10/07/16at 09:20; Admin Dose 420 MLS/HR; Start 09/18/16 at 09: 00 Collagenase (Santyl) 1 applic DAILY TOP Last administered on 10/07/16at 09:09; Admin Dose 1 APPLIC; Start 09/18/16 at 09:00 Acetaminophen (Tylenol Liquid) 650 mg Q4H PRN NGT PAIN AND OR ELEVATED TEMP Last administered on 09/29/16at 12:07; Admin Dose 650 MG; Start 09/18/16 at 08: 00 Bisacodyl (Dulcolax Supp) [address] CONSTIPATION; Start 09/18/16 at 08:00 Mupirocin (Bactroban) Apply to bilateral nares ... BID TOP Last administered on 10/07/16 09:09; Admin Dose 1 APPLIC; Start 09/18/16 at 09:00 Mirtazapine (Remeron) 7.5 mg HS GTB Last administered on 10/06/16at 21:31; Admin Dose 7.5 MG; Start 09/18/16 at 21:00 Ondansetron HCl (Zofran Inj) 4 mg Q4H PRN IV NAUSEA AND/OR VOMITING; Start 08/24 at 08:00 Morphine Sulfate (morphine) 2 mg Q3H PRN IV PAIN LEVEL 6-10 Last administered on 09/28/16at 12:25; Admin Dose 2 MG; Start 09/18/16 at 08:00 Lorazepam (Ativan) 0.5 mg Q3H PRN IV ANXIETY; Start 09/18/16 at 08:00 Amikacin Sulfate (Amikacin Iv Per Pharmacy) PER PHARMACY DOSING NOTE XX ; Start 09/18/16 at 13:00 Vancomycin HCl (Vanco Iv Per Pharmacy) PER PHARMACY DOSING NOTE XX ; Start 08/24 at 13:00 IV Flush (NS 10 ml) 10 ml PRN PRN IV IV PROTOCOL Last administered on at 06:01; Admin Dose 10 ML; Start 09/18/16 at 13:00 Sildenafil Citrate (Revatio) 20 mg TID PO Last administered on 10/04/16at 12:13 ; Admin Dose 20 MG; Start 09/19/16 at 09:00 Miscellaneous Information 1 ea NOTE XX ; Start 09/19/16 at 12:00 Glucose (Glutose) 15 gm Q15M PRN PO DECREASED GLUCOSE; Start 09/19/16 at 12:00 Glucose (Glutose) 22.5 gm Q15M PRN PO DECREASED GLUCOSE; Start 09/19/16 at 12: 00 Dextrose (D50w Syringe) 25 ml Q15M PRN IV DECREASED GLUCOSE; Start 09/19/16 at 12:00 Dextrose (D50w Syringe) 50 ml Q15M PRN IV DECREASED GLUCOSE; Start 09/19/16 at 12:00 Glucagon (Glucagen) 1 mg Q15M PRN IM DECREASED GLUCOSE; Start 09/19/16 at 12: 00 Glucose (Glutose) 15 gm Q15M PRN BUCCAL DECREASED GLUCOSE; Start 09/19/16 at 12:00 Voriconazole 200 mg 200 mg BID PO Last administered on 10/07/16at 09:09; Admin Dose 200 MG; Start 09/23/16 at 21:00 Vancomycin HCl (Vancocin) 250 ml @ 125 mls/hr Q96H IVPB Last administered on 10/05/16 15:08; Admin Dose 125 MLS/HR; Start 09/23/16 at 13:00 Lansoprazole (Prevacid) 30 mg DAILY@06 PO Last administered on 10/07/16 06:14 ; Admin Dose 30 MG; Start 09/27/16 at 06:00 Apixaban (Eliquis) 2.5 mg BID GTB Last administered on 10/07/16 09:09; Admin Dose 2.5 MG; Start 09/30/16 at 09:00 Metoclopramide HCl (Reglan) 5 mg Q6 IV Last administered on 10/07/16 06:15; Admin Dose 5 MG; Start 09/30/16 at 12:00 Insulin Aspart (Novolog Insulin Pen) NOVOLOG *MILD* ALGORI... Q6 SC Last administered on 10/03/16 13:16; Admin Dose 1 UNIT; Start 09/30/16 at 12:00 Metronidazole (Flagyl) 500 mg Q8 PO Last administered on 10/07/16 06:14; Admin Dose 500 MG; Start 10/01/16 at 14:30 ANNABEL CISSE MD Oct 07, 2016 10:05
--- NOTE | 2016-10-07 10:11 | PN ---
DATE: 10/07/2016 CARDIOLOGY FOLLOWUP PROGRESS NOTE SUBJECTIVE: No new cardiac events. The patient remains in atrial fibrillation. Hear overall is st able. No reported chest pain or pressure. Still on the vent. I discussed with the staff. Rhythm strip was reviewed. MEDICATIONS: Reviewed. PHYSICAL EXAMINATION: VITAL SIGNS: Temperature 96.4, heart rate of 94, blood pressure 117/54, respiration rate of 20, sat urating 97%. HEENT: Normocephalic, atraumatic. NECK: Status post tracheostomy. CARDIOVASCULAR: Irregularly irregular. Systolic murmur. PULMONARY: Anteriorly with no wheezes and mild rhonchi. GASTROINTESTINAL: Soft, nontender. EXTREMITIES: With trivial edema. NEUROLOGIC: Awake and alert. Responds appropriately. PSYCHIATRIC: Appears to be calm and very pleasant. LABORATORY: Sovecz655, potassium 5.4, BUN of 62, creatinine 1.78, glucose 101. ASSESSMENT AND PLAN: 1. Hypoxemic respiratory failure, status post tracheostomy, vent dependent. 2. Atrial fibrillation, chronic. Currently on anticoagulation. Heart rate controlled. 3. Renal failure on dialysis. 4. Electrolyte abnormalities with hyponatremia. 5. Abdominal ascites. 6. History of pulmonary hypertension. 7. Possible ASD. RECOMMENDATIONS: We will continue with the respiratory care. Heart rate is currently under control . Anticoagulation as tolerated will be continued as well. Dialysis as per renal will be continued. Antibiotic as per ID's recommendation. Dictated By: AMANDA LARA/ARNOLDO Conf#: [id number] DID#: [id number] CC: RUDDY GEE DO;*EndCC*
--- NOTE | 2016-10-07 10:16 | PN ---
DATE: 10/07/2016 SUBJECTIVE: The patient had no acute events overnight. No hemoptysis, hematemesis or hematochezia. OBJECTIVE: VITAL SIGNS: Blood pressure 172/54, respirations 20, pulse 74, temperature 96.4. I's and O's, octaviano ent 1500 in. . HEENT: Head is normocephalic. NECK: Supple. HEART: Regular rate. LUNGS: Show diminished breath sounds at base. ABDOMEN: Soft, distended, nontender to palpation. EXTREMITIES: Negative for clubbing, cyanosis, no edema. DERMATOLOGIC: No rashes. MUSCULOSKELETAL: No joint effusions. NEUROLOGIC: No change in exam. MEDICATIONS: The patient's medications have been reviewed. LABORATORY DATA: Showed sodium 130, potassium 5.4, chloride 95, BUN 62, creatinine 1.78. White cou nt 11.1, hemoglobin 9.9, hematocrit 29, platelet count is 231. ASSESSMENT AND PLAN: 1. Sepsis, status post shock. Etiology secondary to pneumonia, decubitus wound. The patient is cl inically improving. Continue current antibiotic regimen. Follow up with Infectious Disease. 2. Leukocytosis, likely secondary to infection and WBC continues to improve. Continue to monitor. 3. End-stage renal disease. The patient is scheduled for hemodialysis today. We will be dialyzed for 3 hours on a 2K bath, calcium 2.5, ultrafiltrate as tolerated. 4. Hyponatremia secondary to end-stage renal disease. Continue free water restriction, continue di alysis 140 sodium bath. 5. Abdominal distention secondary to ascites. The patient's abdominal ultrasound shows evidence of ascites. Will order a paracentesis 6. Hypertension, improved. Continue to monitor. 7. Pulmonary hypertension. Continue sildenafil. 8. Anemia. Continue to monitor hemoglobin and hematocrit levels. Continue Epogen. 9. Seizure disorder. Continue Keppra. 10. Decubitus wound. Continue wound care. 11. Diabetes. Continue Accu-Cheks and sliding scale. 12. tube feeding. 13. Ventilator dependent respiratory failure. Vent settings have been reviewed. ABG is reviewed, continue to monitor. 14. Atrial fibrillation, currently rate controlled. Continue current medical management. Continue Eliquis. 15. Chronic encephalopathy. No change. 16. History of congestive heart failure, right-sided heart failure. Continue medical management. 17. History of cerebrovascular accident. 18. Gastrointestinal and deep vein thrombosis prophylaxis. Continue PPI and Eliquis. Dictated By: RUDDY BUSTILLOS/ARNOLDO Conf#: [id number] DID#: [id number]
[2016-10-07] MEDS: BUDESONIDE (NEB) 0.5MG/2ML AMP HHN SCH ×2 (11:30→20:38)
--- NOTE | 2016-10-07 11:51 | CONS ---
Date/Time of Note Date/Time of Note DATE: 10/07/16 TIME: 11:45 Consult Date/Type/Reason Admit Date/Time Sep 17, 2016 at 18:49 Type of Consultation: pulmonary Subjective Comfortable no new events Objective Vital Signs Date Time Temp Pulse Resp B/P Pulse Ox O2 Delivery O2 Flow Rate FiO2 10/07/16 09:50 78 13 97 50 10/07/16 06:50 96.4 117/54 Intake and Output 10/06/16 10/06/16 10/07/16 15:00 23:00 07:00 Intake Total 105 ml 805 ml 660 ml Balance 105 ml 805 ml 660 ml PHYSICAL EXAMINATION GENERAL: Elderly lady comfortable at rest VITAL SIGNS: see below. HEENT: Pupils equal, round, and reactive to light. Tracheostomy site clean and intact. CARDIAC: S1, S2, tachycardia. CHEST: Diminished air entry bilaterally. ABDOMEN: Mildly distended. No bowel sounds. EXTREMITIES: No cyanosis, clubbing or edema. NEUROLOGIC: No focal deficits. Results/Medications Result Diagram: 10/07/1625 10/07/16 0625 Results 24 hrs Laboratory Tests Test 10/06/16 12:01 10/06/16 17:19 10/06/16 23:50 10/07/16 06:17 Bedside Glucose 121 93 104 123 Test 10/07/16 06:25 Anion Gap 9 Basophils # 0.0 Basophils % 0.2 Blood Morphology Comment Blood Urea Nitrogen 62 H Calcium Level 7.9 L Carbon Dioxide Level 31 Chloride Level 95 L Creatinine 1.78 H Eosinophils # 0.1 Eosinophils % 0.6 Glucose Level 101 Hematocrit 28.4 L Hemoglobin 9.0 L Lymphocytes # 1.6 Lymphocytes % 13.7 L Magnesium Level 2.3 Mean Corpuscular Hemoglobin 30.8 Mean Corpuscular Hemoglobin Concent 31.6 L Mean Corpuscular Volume 97.2 Mean Platelet Volume 7.8 Monocytes # 0.7 Monocytes % 6.2 Neutrophils # 9.4 H Neutrophils % 79.3 H Nucleated Red Blood Cells # 0.0 Nucleated Red Blood Cells % 0.0 Phosphorus Level 2.3 L Platelet Count 213 Potassium Level 5.4 H Red Blood Count 2.92 L Red Cell Distribution Width 18.5 H Sodium Level 130 L White Blood Count 11.8 H Medications Current Medications Levetiracetam/ Dextrose (Keppra Iv/D5W) 105 ml @ 420 mls/hr Q12 IVPB Last administered on 10/07/16at 09:20; Admin Dose 420 MLS/HR; Start 09/18/16 at 09: 00 Collagenase (Santyl) 1 applic DAILY TOP Last administered on 10/07/16at 09:09; Admin Dose 1 APPLIC; Start 09/18/16 at 09:00 Acetaminophen (Tylenol Liquid) 650 mg Q4H PRN NGT PAIN AND OR ELEVATED TEMP Last administered on 09/29/16at 12:07; Admin Dose 650 MG; Start 09/18/16 at 08: 00 Bisacodyl (Dulcolax Supp) 10 mg DAILY PRN [place] CONSTIPATION; Start 09/18/16 at 08:00 Mupirocin (Bactroban) Apply to bilateral nares ... BID TOP Last administered on 10/07/16 09:09; Admin Dose 1 APPLIC; Start 09/18/16 at 09:00 Mirtazapine (Remeron) 7.5 mg HS GTB Last administered on 10/06/16at 21:31; Admin Dose 7.5 MG; Start 09/18/16 at 21:00 Ondansetron HCl (Zofran Inj) 4 mg Q4H PRN IV NAUSEA AND/OR VOMITING; Start 08/24 at 08:00 Morphine Sulfate (morphine) 2 mg Q3H PRN IV PAIN LEVEL 6-10 Last administered on 09/28/16at 12:25; Admin Dose 2 MG; Start 09/18/16 at 08:00 Lorazepam (Ativan) 0.5 mg Q3H PRN IV ANXIETY; Start 09/18/16 at 08:00 Amikacin Sulfate (Amikacin Iv Per Pharmacy) PER PHARMACY DOSING NOTE XX ; Start 09/18/16 at 13:00 Vancomycin HCl (Vanco Iv Per Pharmacy) PER PHARMACY DOSING NOTE XX ; Start 08/24 at 13:00 IV Flush (NS 10 ml) 10 ml PRN PRN IV IV PROTOCOL Last administered on at 06:01; Admin Dose 10 ML; Start 09/18/16 at 13:00 Sildenafil Citrate (Revatio) 20 mg TID PO Last administered on 10/04/16at 12:13 ; Admin Dose 20 MG; Start 09/19/16 at 09:00 Miscellaneous Information 1 ea NOTE XX ; Start 09/19/16 at 12:00 Glucose (Glutose) 15 gm Q15M PRN PO DECREASED GLUCOSE; Start 09/19/16 at 12:00 Glucose (Glutose) 22.5 gm Q15M PRN PO DECREASED GLUCOSE; Start 09/19/16 at 12: 00 Dextrose (D50w Syringe) 25 ml Q15M PRN IV DECREASED GLUCOSE; Start 09/19/16 at 12:00 Dextrose (D50w Syringe) 50 ml Q15M PRN IV DECREASED GLUCOSE; Start 09/19/16 at 12:00 Glucagon (Glucagen) 1 mg Q15M PRN IM DECREASED GLUCOSE; Start 09/19/16 at 12: 00 Glucose (Glutose) 15 gm Q15M PRN BUCCAL DECREASED GLUCOSE; Start 09/19/16 at 12:00 Voriconazole 200 mg 200 mg BID PO Last administered on 10/07/16at 09:09; Admin Dose 200 MG; Start 09/23/16 at 21:00 Vancomycin HCl (Vancocin) 250 ml @ 125 mls/hr Q96H IVPB Last administered on 10/05/16at 15:08; Admin Dose 125 MLS/HR; Start 09/23/16 at 13:00 Lansoprazole (Prevacid) 30 mg DAILY@06 PO Last administered on 10/07/16at 06:14 ; Admin Dose 30 MG; Start 09/27/16 at 06:00 Apixaban (Eliquis) 2.5 mg BID GTB Last administered on 10/07/16at 09:09; Admin Dose 2.5 MG; Start 09/30/16 at 09:00 Metoclopramide HCl (Reglan) 5 mg Q6 IV Last administered on 10/07/16at 06:15; Admin Dose 5 MG; Start 09/30/16 at 12:00 Insulin Aspart (Novolog Insulin Pen) NOVOLOG *MILD* ALGORI... Q6 SC Last administered on 10/03/16at 13:16; Admin Dose 1 UNIT; Start 09/30/16 at 12:00 Metronidazole (Flagyl) 500 mg Q8 PO Last administered on 10/07/16at 06:14; Admin Dose 500 MG; Start 10/01/16 at 14:30 Assessment/Plan Chief Complaint/Hosp Course IMPRESSION AND PLAN: 1. Vent dependent respiratory failure. Persistent leukocytosis 2. Pleural effusion, possible healthcare-associated pneumonia. 3. Pulmonary hypertension. 4. History of cerebrovascular accident. 5. History of encephalopathy. 6. Dysfunctional G-tube. Recommendations 1. Continue antibiotics 2. Continue ventilator 3. Tube feeding as tolerated 4. ID recommendations 5. Renal recommendations Overall prognosis guarded consider palliative care consult Problems: JULIA HERNANDEZ MD, [facility] Oct 07, 2016 11:51
--- NOTE | 2016-10-07 14:35 | CONS ---
Date/Time of Note Date/Time of Note DATE: 10/07/16 TIME: 14:34 Consult Date/Type/Reason Admit Date/Time Sep 17, 2016 at 18:49 Type of Consultation: id Subjective no acute changes, no fevers, in HD Objective Vital Signs Date Time Temp Pulse Resp B/P Pulse Ox O2 Delivery O2 Flow Rate FiO2 10/07/16 13:05 92 22 98 60 10/07/16 11:10 97.0 91/43 Intake and Output 10/06/16 10/06/16 10/07/16 15:00 23:00 07:00 Intake Total 105 ml 805 ml 660 ml Balance 105 ml 805 ml 660 ml Results/Medications Result Diagram: 10/07/1625 10/07/1625 Results 24 hrs Laboratory Tests Test 10/06/16 17:19 10/06/16 23:50 10/07/16 06:17 10/07/16 06:25 Bedside Glucose 93 104 123 Anion Gap 9 Basophils # 0.0 Basophils % 0.2 Blood Morphology Comment Blood Urea Nitrogen 62 H Calcium Level 7.9 L Carbon Dioxide Level 31 Chloride Level 95 L Creatinine 1.78 H Eosinophils # 0.1 Eosinophils % 0.6 Glucose Level 101 Hematocrit 28.4 L Hemoglobin 9.0 L Lymphocytes # 1.6 Lymphocytes % 13.7 L Magnesium Level 2.3 Mean Corpuscular Hemoglobin 30.8 Mean Corpuscular Hemoglobin Concent 31.6 L Mean Corpuscular Volume 97.2 Mean Platelet Volume 7.8 Monocytes # 0.7 Monocytes % 6.2 Neutrophils # 9.4 H Neutrophils % 79.3 H Nucleated Red Blood Cells # 0.0 Nucleated Red Blood Cells % 0.0 Phosphorus Level 2.3 L Platelet Count 213 Potassium Level 5.4 H Red Blood Count 2.92 L Red Cell Distribution Width 18.5 H Sodium Level 130 L White Blood Count 11.8 H Test 10/07/16 12:17 Bedside Glucose 147 Medications Current Medications Levetiracetam/ Dextrose (Keppra Iv/D5W) 105 ml @ 420 mls/hr Q12 IVPB Last administered on 10/07/16at 09:20; Admin Dose 420 MLS/HR; Start 09/18/16 at 09: 00 Collagenase (Santyl) 1 applic DAILY TOP Last administered on 10/07/16at 09:09; Admin Dose 1 APPLIC; Start 09/18/16 at 09:00 Acetaminophen (Tylenol Liquid) 650 mg Q4H PRN NGT PAIN AND OR ELEVATED TEMP Last administered on 09/29/16at 12:07; Admin Dose 650 MG; Start 09/18/16 at 08: 00 Bisacodyl (Dulcolax Supp) 10 mg DAILY PRN [place] CONSTIPATION; Start 09/18/16 at 08:00 Mupirocin (Bactroban) Apply to bilateral nares ... BID TOP Last administered on 10/07/16at 09:09; Admin Dose 1 APPLIC; Start 09/18/16 at 09:00 Mirtazapine (Remeron) 7.5 mg HS GTB Last administered on 10/06/16at 21:31; Admin Dose 7.5 MG; Start 09/18/16 at 21:00 Ondansetron HCl (Zofran Inj) 4 mg Q4H PRN IV NAUSEA AND/OR VOMITING; Start 08/24 at 08:00 Morphine Sulfate (morphine) 2 mg Q3H PRN IV PAIN LEVEL 6-10 Last administered on 09/28/16at 12:25; Admin Dose 2 MG; Start 09/18/16 at 08:00 Lorazepam (Ativan) 0.5 mg Q3H PRN IV ANXIETY; Start 09/18/16 at 08:00 Amikacin Sulfate (Amikacin Iv Per Pharmacy) PER PHARMACY DOSING NOTE XX ; Start 09/18/16 at 13:00 Vancomycin HCl (Vanco Iv Per Pharmacy) PER PHARMACY DOSING NOTE XX ; Start 08/24 at 13:00 IV Flush (NS 10 ml) 10 ml PRN PRN IV IV PROTOCOL Last administered on at 06:01; Admin Dose 10 ML; Start 09/18/16 at 13:00 Sildenafil Citrate (Revatio) 20 mg TID PO Last administered on 10/04/16at 12:13 ; Admin Dose 20 MG; Start 09/19/16 at 09:00 Miscellaneous Information 1 ea NOTE XX ; Start 09/19/16 at 12:00 Glucose (Glutose) 15 gm Q15M PRN PO DECREASED GLUCOSE; Start 09/19/16 at 12:00 Glucose (Glutose) 22.5 gm Q15M PRN PO DECREASED GLUCOSE; Start 09/19/16 at 12: 00 Dextrose (D50w Syringe) 25 ml Q15M PRN IV DECREASED GLUCOSE; Start 09/19/16 at 12:00 Dextrose (D50w Syringe) 50 ml Q15M PRN IV DECREASED GLUCOSE; Start 09/19/16 at 12:00 Glucagon (Glucagen) 1 mg Q15M PRN IM DECREASED GLUCOSE; Start 09/19/16 at 12: 00 Glucose (Glutose) 15 gm Q15M PRN BUCCAL DECREASED GLUCOSE; Start 09/19/16 at 12:00 Voriconazole 200 mg 200 mg BID PO Last administered on 10/07/16at 09:09; Admin Dose 200 MG; Start 09/23/16 at 21:00 Vancomycin HCl (Vancocin) 250 ml @ 125 mls/hr Q96H IVPB Last administered on 10/05/16at 15:08; Admin Dose 125 MLS/HR; Start 09/23/16 at 13:00 Lansoprazole (Prevacid) 30 mg DAILY@06 PO Last administered on 10/07/16at 06:14 ; Admin Dose 30 MG; Start 09/27/16 at 06:00 Apixaban (Eliquis) 2.5 mg BID GTB Last administered on 10/07/16at 09:09; Admin Dose 2.5 MG; Start 09/30/16 at 09:00 Metoclopramide HCl (Reglan) 5 mg Q6 IV Last administered on 10/07/16at 12:18; Admin Dose 5 MG; Start 09/30/16 at 12:00 Insulin Aspart (Novolog Insulin Pen) NOVOLOG *MILD* ALGORI... Q6 SC Last administered on 10/07/16at 12:20; Admin Dose 1 UNIT; Start 09/30/16 at 12:00 Metronidazole (Flagyl) 500 mg Q8 PO Last administered on 10/07/16at 06:14; Admin Dose 500 MG; Start 10/01/16 at 14:30 Assessment/Plan Chief Complaint/Hosp Course MICROBIOLOGY: Endotracheal aspirate growing multidrug resistant Pseudomonas. Blood cultures negative, wound culture of her sacrum growing MRSA. Urine culture growing Kelly glabrata. INDWELLING: trach, PEG, RIJ Perm-A-Cath, Left upper extremity PICC line placed on 09/18/2016. ANTIMICROBIALS: 1. Amikacin. 2. Vancomycin. 3. Vfend 4. Flagyl PHYSICAL EXAMINATION: GENERAL: Fragile, chronically ill-appearing, elderly woman who is lying comfortably in bed. HEENT: Head atraumatic, normocephalic. Sclerae anicteric. Buccal mucosa dry. NECK: Supple. Tracheostomy present. CHEST: Rise symmetrical. Breath sounds diminished to bases. HEART: S1, S2. ABDOMEN: Soft, bowel tones present. EXTREMITIES: Without cyanosis. ASSESSMENT: 1. Ongoing sepsis, status post shock. 2. Healthcare-associated pneumonia with parapneumonic pleural effusion and sputum culture growing multi-drug resistant Pseudomonas aeruginosa. 3. Methicillin-resistant Staphylococcus aureus infected decubitus. 4. Kelly glabrata urinary tract infection. 5. Methicillin-resistant Staphylococcus aureus nares colonization. 6. End-stage renal disease, hemodialysis dependent. 7. History of cerebrovascular accident. 8. Ascites==> s/p paracentesis 09/24===> cx negative 9. Sacral decub, poss OM 10. ALLERGY TO PENICILLIN AND SULFA. PLAN: Clinically unchanged, continue abx, topical Bactroban to nares, local wound care DW staff Problems: RAISSA ROA NP Oct 07, 2016 14:35
[2016-10-07] MEDS: AMIKACIN IVPB SCH (14:59)
[2016-10-07] MEDS: SOD CHLORIDE 0.9% IVPB SCH (14:59)
[2016-10-07] MEDS: EPOETIN 10000 UNITS/1 ML INJ (ESRD) SC SCH (15:00)
[2016-10-07] MEDS: MIRTAZAPINE 15 MG TAB GTB SCH (21:17)
[2016-10-08] VITALS (23 sets, daily range): BP systolic 102–117; BP diastolic 41–67; PULSE 86–108; RESP 12–25
[2016-10-08] MEDS: METOCLOPRAMIDE 10 MG INJ IV SCH ×4 (00:14→17:38)
[2016-10-08] MEDS: LEVALBUTEROL (HFA) 15 GM INHALER INH SCH ×6 (01:53→21:13)
[2016-10-08] MEDS: IPRATROPIUM (HFA) 12.9 GM INHALER INH SCH ×6 (01:53→21:13)
[2016-10-08] MEDS: LANSOPRAZOLE 30 MG CAP PO SCH (05:13)
[2016-10-08] MEDS: metroNIDAZOLE 500 MG TAB PO SCH ×3 (05:13→21:20)
[2016-10-08] MEDS: INSULIN ASPART [NOVOLOG] 3 ML PEN SC SCH ×4 (05:25→17:38)
[2016-10-08 07:00] LABS: BASOPHIL # 0.1 10^3/ul (0.0-0.1); BASOPHILS % 0.4 % (0.0-2.0); EOSINOPHILS % 0.3 % (0.0-7.0); HEMATOCRIT 27.3 % (37.0-47.0); HEMOGLOBIN 8.4 g/dl (12.0-16.0); LYMPHOCYTES # 1.3 10^3/ul (0.8-2.9); MEAN CORPUSCULAR HEMOGLOBIN 29.9 pg (29.0-33.0); MEAN CORPUSCULAR HGB CONC 30.8 g/dl (32.0-37.0); MEAN PLATELET VOLUME 7.2 fl (7.4-10.4); MONOCYTE # 0.7 10^3/ul (0.3-0.9); MONOCYTES % 4.8 % (0.0-11.0); NEUTROPHIL # 12.7 10^3/ul (1.6-7.5); NEUTROPHILS % 85.5 % (39.0-77.0); PLATELET COUNT 209 10^3/UL (140-440); RED BLOOD COUNT 2.81 10^6/ul (4.20-5.40); RED CELL DISTRIBUTION WIDTH 18.8 % (11.5-14.5); UNCORRECTED WBC 14.9 10^3/ul (4.8-10.8); WHITE BLOOD COUNT 14.9 10^3/ul (4.8-10.8)
[2016-10-08 07:11] LABS: POTASSIUM 4.2 mmol/L (3.5-5.1)
[2016-10-08 07:13] LABS: CONDITION 1; CREATININE 1.65 mg/dl (0.44-1.00); LH ANALYZER COMMENTS 1; SUSPECT 1
[2016-10-08 07:14] LABS: CALCIUM 8.1 mg/dl (8.4-10.2); MAGNESIUM 2.3 mg/dl (1.7-2.5); PHOSPHORUS 1.8 mg/dl (2.5-4.9)
[2016-10-08] MEDS: BUDESONIDE (NEB) 0.5MG/2ML AMP HHN SCH ×2 (08:16→21:40)
[2016-10-08] MEDS: APIXABAN 5 MG TABLET GTB SCH ×2 (09:00→21:20)
[2016-10-08] MEDS: LEVETIRACETAM IV 500 MG in DEXTROSE 5% 100 ML IVPB SCH ×2 (09:25→21:18)
[2016-10-08] MEDS: MUPIROCIN 2% 22 GM OINT TOP SCH ×2 (09:26→21:24)
[2016-10-08] MEDS: COLLAGENASE 30 GM TUBE TOP SCH (09:27)
[2016-10-08] MEDS ORDERED: VORICONAZOLE 200 MG TAB GTB SCH (10:00)
--- NOTE | 2016-10-08 10:39 | PN ---
DATE: 10/08/2016 SUBJECTIVE: The patient had hemodialysis yesterday, tolerated well without any complications. No o ther acute events noted overnight. OBJECTIVE: VITAL SIGNS: Blood pressure 113/41, respirations 18, pulse 102, temperature 98.5. HEENT: Head is normocephalic. NECK: Supple. HEART: Regular rate. LUNGS: Show diminished breath sounds at base. ABDOMEN: Soft. It is mildly distended. Positive fluid wave noted. Nontender to palpation. EXTREMITIES: Negative for clubbing, cyanosis; trace edema. DERMATOLOGIC: No rashes. MUSCULOSKELETAL: No joint effusions. NEUROLOGIC: No change in exam. MEDICATIONS: The patient's medications have been reviewed. LABORATORY DATA: Shows white count 14.9, hemoglobin 8.4, hematocrit 27.3, platelet count is 209. S odium 138, potassium 4.2, chloride ____, BUN 48, creatinine 1.65, calcium 8.1, phosphorus is 1.8. ASSESSMENT AND PLAN: 1. Sepsis, status post shock, etiology secondary to pneumonia, decubitus wound. The patient is cur rently on antibiotic therapy. We will continue. 2. Fungal urinary tract infection. Continue Voriconazole. 3. End-stage renal disease. The patient had hemodialysis yesterday, tolerated well. Anticipate di alysis tomorrow. 4. Leukocytosis. The etiology is felt to be secondary to infection, reactive. We will continue to monitor. White count has improved but continues to fluctuate. 5. Hyponatremia secondary to end-stage renal disease. Continue free water restriction, continue di alysis with 140 sodium bath. 6. Abdominal ascites. Etiology is likely secondary to right-sided heart failure. Abdominal ultras ound shows evidence of moderate ascites. We will order for paracentesis today. 7. Pulmonary hypertension. Continue sildenafil. 8. Anemia. Continue to monitor hemoglobin and hematocrit. Continue Epogen. 9. Seizure disorder. Continue Keppra. 10. Decubitus wound. Continue wound care. 11. Diabetes. Continue Accu-Cheks and sliding scale. 12. Dysphagia, status post percutaneous endoscopic gastrostomy. Continue tube feeding. 13. Ventilator dependent respiratory failure. Vent settings have been reviewed. ABG has been revi ewed. Continue to monitor. 14. Atrial fibrillation, currently rate controlled. Continue Eliquis. 15. Chronic encephalopathy. No change. 16. History of congestive heart failure, right-sided heart failure. Continue medical management. 17. History of cerebrovascular accident. 18. GI and DVT prophylaxis. Continue proton pump inhibitor and Eliquis. Dictated By: RUDDY BUSTILLOS/ARNOLDO Conf#: [id number] DID#: [id number]
[2016-10-08] MEDS ORDERED: SODIUM PHOSPHATE 15 MMOL in SOD CHLORIDE 0.9% 250 ML IVPB ONE (11:00)
[2016-10-08 11:04] LABS: INR 2.42; PROTIME 26.6 Sec (12.2-14.2); PT RATIO 2.1
[2016-10-08 11:05] LABS: PARTIAL THROMBOPLASTIN TIME 47.2 Sec (25.0-35.0)
--- NOTE | 2016-10-08 11:21 | PN ---
DATE: 10/08/2016 CARDIOLOGY FOLLOWUP SUBJECTIVE: The patient remains on trach, on the vent still. Remains in atrial fibrillation. Hear t rate overall is under good control. No reported chest pain or pressure. MEDICATIONS: Reviewed. was reviewed, discussed with the staff. PHYSICAL EXAMINATION: VITAL SIGNS: Temperature 98.5, heart rate of 107, blood pressure 113/41, respiration rate of 20, sa turating 98%. HEENT: Normocephalic, atraumatic. Pupils are equal. CARDIOVASCULAR: Irregularly irregular. Systolic murmur. PULMONARY: With no wheezes anteriorly. Minimal rhonchi. GASTROINTESTINAL: Soft, status post PEG placement. EXTREMITIES: With positive edema. NEUROLOGIC: Awake, alert. PSYCHIATRIC: Appears calm and very pleasant. LABORATORY DATA: WBC of 14.9, hemoglobin 8.4, platelets of 209. Sodium 130, potassium 4.2, BUN of 48, creatinine 1.65, glucose of 96. ASSESSMENT AND PLAN: 1. Atrial fibrillation, currently heart rate controlled and anticoagulation with Eliquis. 2. Hypoxemic respiratory failure, status post intubation, status post tracheostomy, on the vent. 3. Ascites. 4. Renal failure, on dialysis. 5. Possible atrial septal defect. 6. History of pulmonary hypertension. RECOMMENDATIONS: We will continue with the supportive care. Hemodialysis as per renal will be cont inued. Vent support will be continued. Antibiotic is managed as per ID recommendation. Continue w ith nutritional support. Dictated By: AMANDA PINTO MD AV/ARNOLDO Conf#: [id number] DID#: [id number]
[2016-10-08] MEDS ORDERED: SILDENAFIL 20 MG TAB GTB SCH (13:00)
[2016-10-08] MEDS: SILDENAFIL 20 MG TAB GTB SCH ×2 (14:01→21:19)
--- NOTE | 2016-10-08 14:27 | CONS ---
Date/Time of Note Date/Time of Note DATE: 10/08/16 TIME: 14:26 Consult Date/Type/Reason Admit Date/Time Sep 17, 2016 at 18:49 Type of Consultation: id Subjective no events per report, no fevers, no v/d, lying comfortably in bed Objective Vital Signs Date Time Temp Pulse Resp B/P Pulse Ox O2 Delivery O2 Flow Rate FiO2 10/08/16 12:27 96 10/08/16 11:38 98.5 20 110/47 93 10/08/16 11:15 50 10/08/16 04:35 Mechanical Ventilator Intake and Output 10/07/16 10/07/16 10/08/16 14:59 22:59 06:59 Intake Total 605 ml 767 ml 700 ml Output Total 2500 ml 0 ml Balance -1895 ml 767 ml 700 ml Results/Medications Result Diagram: 10/08/16 0621 10/08/16 0621 Results 24 hrs Laboratory Tests Test 10/07/16 17:07 10/08/16 00:19 10/08/16 05:22 10/08/16 06:21 Bedside Glucose 108 102 102 Anion Gap 9 Basophils # 0.1 Basophils % 0.4 Blood Morphology Comment Blood Urea Nitrogen 48 #H Calcium Level 8.1 L Carbon Dioxide Level 33 H Chloride Level 92 L Creatinine 1.65 H Eosinophils # 0.0 Eosinophils % 0.3 Glucose Level 96 Hematocrit 27.3 L Hemoglobin 8.4 L Lymphocytes # 1.3 Lymphocytes % 9.0 L Magnesium Level 2.3 Mean Corpuscular Hemoglobin 29.9 Mean Corpuscular Hemoglobin Concent 30.8 L Mean Corpuscular Volume 97.0 Mean Platelet Volume 7.2 L Monocytes # 0.7 Monocytes % 4.8 Neutrophils # 12.7 H Neutrophils % 85.5 H Nucleated Red Blood Cells # 0.0 Nucleated Red Blood Cells % 0.0 Phosphorus Level 1.8 L Platelet Count 209 Potassium Level 4.2 Red Blood Count 2.81 L Red Cell Distribution Width 18.8 H Sodium Level 130 L White Blood Count 14.9 #H Test 10/08/16 10:26 10/08/16 13:11 Activated Partial Thromboplast Time 47.2 H INR International Normalized Ratio 2.42 Prothrombin Time 26.6 #H Prothrombin Time Ratio 2.1 Bedside Glucose 117 Medications Current Medications Levetiracetam/ Dextrose (Keppra Iv/D5W) 105 ml @ 420 mls/hr Q12 IVPB Last administered on 10/08/16at 09:25; Admin Dose 420 MLS/HR; Start 09/18/16 at 09: 00 Collagenase (Santyl) 1 applic DAILY TOP Last administered on 10/08/16at 09:27; Admin Dose 1 APPLIC; Start 09/18/16 at 09:00 Acetaminophen (Tylenol Liquid) 650 mg Q4H PRN NGT PAIN AND OR ELEVATED TEMP Last administered on 09/29/16at 12:07; Admin Dose 650 MG; Start 09/18/16 at 08: 00 Bisacodyl (Dulcolax Supp) 10 mg DAILY PRN [place] CONSTIPATION; Start 09/18/16 at 08:00 Mupirocin (Bactroban) Apply to bilateral nares ... BID TOP Last administered on 10/08/16at 09:26; Admin Dose 1 APPLIC; Start 09/18/16 at 09:00 Mirtazapine (Remeron) 7.5 mg HS GTB Last administered on 10/07/16at 21:17; Admin Dose 7.5 MG; Start 09/18/16 at 21:00 Ondansetron HCl (Zofran Inj) 4 mg Q4H PRN IV NAUSEA AND/OR VOMITING; Start 08/24 at 08:00 Morphine Sulfate (morphine) 2 mg Q3H PRN IV PAIN LEVEL 6-10 Last administered on 09/28/16at 12:25; Admin Dose 2 MG; Start 09/18/16 at 08:00 Lorazepam (Ativan) 0.5 mg Q3H PRN IV ANXIETY; Start 09/18/16 at 08:00 Amikacin Sulfate (Amikacin Iv Per Pharmacy) PER PHARMACY DOSING NOTE XX ; Start 09/18/16 at 13:00 Vancomycin HCl (Vanco Iv Per Pharmacy) PER PHARMACY DOSING NOTE XX ; Start 08/24 at 13:00 IV Flush (NS 10 ml) 10 ml PRN PRN IV IV PROTOCOL Last administered on at 06:01; Admin Dose 10 ML; Start 09/18/16 at 13:00 Miscellaneous Information 1 ea NOTE XX ; Start 09/19/16 at 12:00 Glucose (Glutose) 15 gm Q15M PRN PO DECREASED GLUCOSE; Start 09/19/16 at 12:00 Glucose (Glutose) 22.5 gm Q15M PRN PO DECREASED GLUCOSE; Start 09/19/16 at 12: 00 Dextrose (D50w Syringe) 25 ml Q15M PRN IV DECREASED GLUCOSE; Start 09/19/16 at 12:00 Dextrose (D50w Syringe) 50 ml Q15M PRN IV DECREASED GLUCOSE; Start 09/19/16 at 12:00 Glucagon (Glucagen) 1 mg Q15M PRN IM DECREASED GLUCOSE; Start 09/19/16 at 12: 00 Glucose 15 gm 15 gm Q15M PRN BUCCAL DECREASED GLUCOSE; Start 09/19/16 at 12:00 Vancomycin HCl (Vancocin) 250 ml @ 125 mls/hr Q96H IVPB Last administered on 10/05/16at 15:08; Admin Dose 125 MLS/HR; Start 09/23/16 at 13:00 Lansoprazole (Prevacid) 30 mg DAILY@06 PO Last administered on 10/08/16at 05:13 ; Admin Dose 30 MG; Start 09/27/16 at 06:00 Apixaban (Eliquis) 2.5 mg BID GTB Last administered on 10/07/16at 21:17; Admin Dose 2.5 MG; Start 09/30/16 at 09:00 Metoclopramide HCl (Reglan) 5 mg Q6 IV Last administered on 10/08/16at 13:18; Admin Dose 5 MG; Start 09/30/16 at 12:00 Insulin Aspart (Novolog Insulin Pen) NOVOLOG *MILD* ALGORI... Q6 SC Last administered on 10/07/16at 12:20; Admin Dose 1 UNIT; Start 09/30/16 at 12:00 Metronidazole 500 mg 500 mg Q8 PO Last administered on 10/08/16at 13:18; Admin Dose 500 MG; Start 10/01/16 at 14:30 Sodium Phosphate/ Sodium Chloride (Sodium Phosphate/NS) 255 ml @ 63.75 mls/ hr ONCE ONCE IVPB Last administered on 10/08/16at 13:18; Admin Dose 63.75 MLS/HR ; Start 10/08/16 at 11:00; Stop 10/08/16 at 14:59 Voriconazole (Vfend) 200 mg BID GTB Last administered on 10/08/16at 10:14; Admin Dose 200 MG; Start 10/08/16 at 10:00 Sildenafil Citrate (Revatio) 20 mg TID GTB Last administered on 10/08/16at 14: 01; Admin Dose 20 MG; Start 10/08/16 at 10:45 Assessment/Plan Chief Complaint/Hosp Course MICROBIOLOGY: Endotracheal aspirate growing multidrug resistant Pseudomonas. Blood cultures negative, wound culture of her sacrum growing MRSA. Urine culture growing Kelly glabrata. INDWELLING: trach, PEG, RIJ Perm-A-Cath, Left upper extremity PICC line placed on 09/18/2016. ANTIMICROBIALS: 1. Amikacin. 2. Vancomycin. 3. Vfend 4. Flagyl PHYSICAL EXAMINATION: GENERAL: Fragile, chronically ill-appearing, elderly woman who is lying comfortably in bed. HEENT: Head atraumatic, normocephalic. Sclerae anicteric. Buccal mucosa dry. NECK: Supple. Tracheostomy present. CHEST: Rise symmetrical. Breath sounds diminished to bases. HEART: S1, S2. ABDOMEN: Soft, bowel tones present. EXTREMITIES: Without cyanosis. ASSESSMENT: 1. Ongoing sepsis, status post shock. 2. Healthcare-associated pneumonia with parapneumonic pleural effusion and sputum culture growing multi-drug resistant Pseudomonas aeruginosa. 3. Methicillin-resistant Staphylococcus aureus infected decubitus. 4. Kelly glabrata urinary tract infection. 5. Methicillin-resistant Staphylococcus aureus nares colonization. 6. End-stage renal disease, hemodialysis dependent. 7. History of cerebrovascular accident. 8. Ascites==> s/p paracentesis 09/24===> cx negative 9. Sacral decub, poss OM 10. ALLERGY TO PENICILLIN AND SULFA. PLAN: Clinically unchanged, dc Vfend, continue abx, topical Bactroban to nares, local wound care [facility] staff Problems: RAISSA ROA NP Oct 08, 2016 14:27
--- NOTE | 2016-10-08 15:35 | CONS ---
Date/Time of Note Date/Time of Note DATE: 10/08/16 TIME: 15:33 Assessment/Plan Assessment/Plan Additional Assessment/Plan Additional Assessment/Plan Chief Complaint/Hosp Course ASSESSMENT: 1. Renal failure on dialysis. 2. Vent dependent respiratory failure. 3. Chronic obstructive pulmonary disease. 4. Atrial fibrillation. 5. Ascites, successful paracentesis done. 6. Dysphagia 7. G-tube clean,no leakage,tolerating feeding 8. Anemia: stable, likely from anemia of chronic disease 9. Status post septic shock. 10. Diabetes mellitus. 11. Decubitus ulcer. 12. Congestive heart failure. 13. Seizure disorder. 14. pneumonia,s/p sepsis 15.pulmonary hypertension Plan continue antibiotics per ID Reglan for gastroparesis Bactroban to g tube site. Routine G-tube site care no dressing around g tube site. Consultation Date/Type/Reason Admit Date/Time Sep 17, 2016 at 18:49 Type of Consultation: id [id number] HR Interval Summary Constitutional: improved, no complaints Exam/Review of Systems Vital Signs Vitals Vital Signs Date Time Temp Pulse Resp B/P Pulse Ox O2 Delivery O2 Flow Rate FiO2 10/08/16 14:51 94 16 94 10/08/16 11:38 98.5 110/47 10/08/16 11:15 50 10/08/16 04:35 Mechanical Ventilator Intake and Output 10/07/16 10/07/16 10/08/16 15:00 23:00 07:00 Intake Total 605 ml 767 ml 700 ml Output Total 2500 ml 0 ml Balance -1895 ml 767 ml 700 ml Exam Constitutional: alert, oriented, well developed Psych: nl mood/affect, no complaints Head: atraumatic, normocephalic Eyes: EOMI, PERRL, nl conjunctiva, nl lids, nl sclera ENMT: nl external ears & nose, nl lips & teeth, nl nasal mucosa & septum Neck: non-tender, supple Respiratory: clear to auscultation, normal air movement Cardiovascular: nl pulses, regular rate and rhythm Gastrointestinal: nl liver, spleen, non-tender, soft Musculoskeletal: nl extremities to inspection, nl gait and stance Extremities: normal pulses Neurological: SUPER[employer]OR CARTOGRAPHY II-XII intact, nl mental status, nl speech, nl strength Skin: nl turgor, No rash or lesions Lymph: nl lymph nodes Results Result Diagram: 10/08/1662010/08/16620 Results 24 hrs Laboratory Tests Test 10/07/16 17:07 10/08/16 00:19 10/08/16 05:22 10/08/16 06:21 Bedside Glucose 108 102 102 Anion Gap 9 Basophils # 0.1 Basophils % 0.4 Blood Morphology Comment Blood Urea Nitrogen 48 #H Calcium Level 8.1 L Carbon Dioxide Level 33 H Chloride Level 92 L Creatinine 1.65 H Eosinophils # 0.0 Eosinophils % 0.3 Glucose Level 96 Hematocrit 27.3 L Hemoglobin 8.4 L Lymphocytes # 1.3 Lymphocytes % 9.0 L Magnesium Level 2.3 Mean Corpuscular Hemoglobin 29.9 Mean Corpuscular Hemoglobin Concent 30.8 L Mean Corpuscular Volume 97.0 Mean Platelet Volume 7.2 L Monocytes # 0.7 Monocytes % 4.8 Neutrophils # 12.7 H Neutrophils % 85.5 H Nucleated Red Blood Cells # 0.0 Nucleated Red Blood Cells % 0.0 Phosphorus Level 1.8 L Platelet Count 209 Potassium Level 4.2 Red Blood Count 2.81 L Red Cell Distribution Width 18.8 H Sodium Level 130 L White Blood Count 14.9 #H Test 10/08/16 10:26 10/08/16 13:11 Activated Partial Thromboplast Time 47.2 H INR International Normalized Ratio 2.42 Prothrombin Time 26.6 #H Prothrombin Time Ratio 2.1 Bedside Glucose 117 Medications Medications Current Medications Levetiracetam/ Dextrose (Keppra Iv/D5W) 105 ml @ 420 mls/hr Q12 IVPB Last administered on 10/08/16at 09:25; Admin Dose 420 MLS/HR; Start 09/18/16 at 09: 00 Collagenase (Santyl) 1 applic DAILY TOP Last administered on 10/08/16at 09:27; Admin Dose 1 APPLIC; Start 09/18/16 at 09:00 Acetaminophen (Tylenol Liquid) 650 mg Q4H PRN NGT PAIN AND OR ELEVATED TEMP Last administered on 09/29/16at 12:07; Admin Dose 650 MG; Start 09/18/16 at 08: 00 Bisacodyl (Dulcolax Supp) 10 mg DAILY PRN [place] CONSTIPATION; Start 09/18/16 at 08:00 Mupirocin (Bactroban) Apply to bilateral nares ... BID TOP Last administered on 10/08/16at 09:26; Admin Dose 1 APPLIC; Start 09/18/16 at 09:00 Mirtazapine (Remeron) 7.5 mg HS GTB Last administered on 10/07/16at 21:17; Admin Dose 7.5 MG; Start 09/18/16 at 21:00 Ondansetron HCl (Zofran Inj) 4 mg Q4H PRN IV NAUSEA AND/OR VOMITING; Start 08/24 at 08:00 Morphine Sulfate (morphine) 2 mg Q3H PRN IV PAIN LEVEL 6-10 Last administered on 09/28/16at 12:25; Admin Dose 2 MG; Start 09/18/16 at 08:00 Lorazepam (Ativan) 0.5 mg Q3H PRN IV ANXIETY; Start 09/18/16 at 08:00 Amikacin Sulfate (Amikacin Iv Per Pharmacy) PER PHARMACY DOSING NOTE XX ; Start 09/18/16 at 13:00 Vancomycin HCl (Vanco Iv Per Pharmacy) PER PHARMACY DOSING NOTE XX ; Start 08/24 at 13:00 IV Flush (NS 10 ml) 10 ml PRN PRN IV IV PROTOCOL Last administered on at 06:01; Admin Dose 10 ML; Start 09/18/16 at 13:00 Miscellaneous Information 1 ea NOTE XX ; Start 09/19/16 at 12:00 Glucose (Glutose) 15 gm Q15M PRN PO DECREASED GLUCOSE; Start 09/19/16 at 12:00 Glucose (Glutose) 22.5 gm Q15M PRN PO DECREASED GLUCOSE; Start 09/19/16 at 12: 00 Dextrose (D50w Syringe) 25 ml Q15M PRN IV DECREASED GLUCOSE; Start 09/19/16 at 12:00 Dextrose (D50w Syringe) 50 ml Q15M PRN IV DECREASED GLUCOSE; Start 09/19/16 at 12:00 Glucagon (Glucagen) 1 mg Q15M PRN IM DECREASED GLUCOSE; Start 09/19/16 at 12: 00 Glucose 15 gm 15 gm Q15M PRN BUCCAL DECREASED GLUCOSE; Start 09/19/16 at 12:00 Vancomycin HCl (Vancocin) 250 ml @ 125 mls/hr Q96H IVPB Last administered on 10/05/16at 15:08; Admin Dose 125 MLS/HR; Start 09/23/16 at 13:00 Lansoprazole (Prevacid) 30 mg DAILY@06 PO Last administered on 10/08/16 05:13 ; Admin Dose 30 MG; Start 09/27/16 at 06:00 Apixaban (Eliquis) 2.5 mg BID GTB Last administered on 10/07/16 21:17; Admin Dose 2.5 MG; Start 09/30/16 at 09:00 Metoclopramide HCl (Reglan) 5 mg Q6 IV Last administered on 10/08/16at 13:18; Admin Dose 5 MG; Start 09/30/16 at 12:00 Insulin Aspart (Novolog Insulin Pen) NOVOLOG *MILD* ALGORI... Q6 SC Last administered on 10/07/16 12:20; Admin Dose 1 UNIT; Start 09/30/16 at 12:00 Metronidazole (Flagyl) 500 mg Q8 PO Last administered on 10/08/16 13:18; Admin Dose 500 MG; Start 10/01/16 at 14:30 Sildenafil Citrate (Revatio) 20 mg TID GTB Last administered on 10/08/16at 14: 01; Admin Dose 20 MG; Start 10/08/16 at 10:45 ANNABEL CISSE MD Oct 08, 2016 15:35
--- NOTE | 2016-10-08 18:01 | PN ---
DATE: REASON FOR FOLLOWUP: Respiratory failure. The patient is staying on the vent, continues supplemental oxygen on mechanical ventilation. OBJECTIVE: VITAL SIGNS: Temperature 97.3, pulse is 92, blood pressure is 117/49, O2 saturation 96% on FIO2 of 40%. NECK: Supple. No JVD or lymphadenopathy. CARDIAC: S1, S2, no added sounds or murmurs. CHEST: Diminished air entry bilaterally. ABDOMEN: Soft, nontender. No guarding or rebound. EXTREMITIES: No Show LABORATORY DATA: White count 14.9, hemoglobin 8.4, platelets of 209. BUN 48, creatinine 1.65. INR was 2.42. IMPRESSION: 1. Ventilatory-dependent respiratory failure. 2. Status post septic shock. 3. Decubitus ulcers and polymicrobial sepsis. 4. Hypernatremia. 5. End-stage renal failure on hemodialysis. 6. Underlying seizure disorder. PLAN: 1. Continue supplemental O2. 2. Continue vent support. 3. Continue antibiotics. 4. DVT and GI prophylaxis. 5. Consider transfer back to [facility] facility. Dictated By: JULIA SNYDER/ARNOLDO Conf#: [id number] DID#: [id number]
[2016-10-08] MEDS: MIRTAZAPINE 15 MG TAB GTB SCH (21:19)
[2016-10-09] VITALS (35 sets, daily range): BP systolic 84–127; BP diastolic 48–63; PULSE 78–154; RESP 14–23
[2016-10-09] MEDS: METOCLOPRAMIDE 10 MG INJ IV SCH ×4 (00:37→17:25)
[2016-10-09] MEDS: IPRATROPIUM (HFA) 12.9 GM INHALER INH SCH ×6 (01:48→21:06)
[2016-10-09] MEDS: LEVALBUTEROL (HFA) 15 GM INHALER INH SCH ×6 (01:48→21:06)
[2016-10-09] MEDS: metroNIDAZOLE 500 MG TAB PO SCH ×3 (05:30→22:15)
[2016-10-09] MEDS: INSULIN ASPART [NOVOLOG] 3 ML PEN SC SCH ×4 (05:30→17:26)
[2016-10-09] MEDS: LANSOPRAZOLE 30 MG CAP PO SCH (05:30)
[2016-10-09] MEDS: APIXABAN 5 MG TABLET GTB SCH ×3 (09:00→22:28)
[2016-10-09] MEDS: SILDENAFIL 20 MG TAB GTB SCH ×3 (09:00→22:27)
--- NOTE | 2016-10-09 09:23 | PN ---
DATE: SUBJECTIVE: The patient is stable, no acute events overnight. No fevers, chills, nausea or vomitin g. The patient is pending hemodialysis today. No other events noted. OBJECTIVE: VITAL SIGNS: Blood pressure 109/53, respirations 20, pulse 93, temperature 97.3. HEENT: Head is normocephalic. NECK: Supple. HEART: Regular rate. LUNGS: Show diminished breath sounds at base, otherwise clear. ABDOMEN: Soft, nontender to palpation without rebound or guarding. EXTREMITIES: Negative for clubbing, cyanosis, no edema. DERMATOLOGIC: No rashes. MUSCULOSKELETAL: No joint effusions. NEUROLOGIC: No change in exam. MEDICATIONS: The patient's medications have been reviewed. LABORATORY DATA: For today is currently pending. ASSESSMENT AND PLAN: 1. Sepsis, status post shock. Etiology secondary to pneumonia, decubitus wound. Continue current antibiotic regimen. 2. Fungal urinary tract infection. Continue Voriconazole. 3. End-stage renal disease. The patient is scheduled for hemodialysis today. 4. Leukocytosis. Etiology felt to be multifactorial secondary to infection, reactive. Continue to monitor. 5. Hyponatremia. Continue free water restriction. 6. Abdominal ascites secondary to right-sided heart failure. 7. End-stage renal disease. Will continue to monitor the patient's paracentesis was held due to co agulopathy. When coagulopathy corrected, will perform paracentesis. 8. Pulmonary hypertension. Continue sildenafil. 9. Anemia. Continue to monitor hemoglobin and hematocrit levels. Continue Epogen. 10. Seizure disorder. Continue Keppra. 11. Decubitus wound. We will continue wound care. 12. Diabetes. Continue Accu-Cheks and sliding scale. 13. Dysphagia. Status post PEG tube, tube feeding. 14. Ventilator dependent respiratory failure. Vent settings have been reviewed. ABG has been revi ewed. Continue to monitor. 15. Atrial fibrillation, rate controlled. Continue medical management. 16. Chronic encephalopathy. No change. 17. History of congestive heart failure, right-sided heart failure. Continue medical management. 18. History of cerebrovascular accident. 19. GI and deep venous thrombosis prophylaxis. Continue Eliquis. Dictated By: RUDDY BUSTILLOS/ARNOLDO Conf#: [id number] DID#: [id number]
[2016-10-09] MEDS: BUDESONIDE (NEB) 0.5MG/2ML AMP HHN SCH ×2 (09:25→20:00)
[2016-10-09] MEDS ORDERED: ALBUMIN HUMAN 25% 100 ML IV ONE (10:00)
--- NOTE | 2016-10-09 10:02 | PN ---
DATE: 10/09/2016 CARDIOLOGY FOLLOWUP SUBJECTIVE: Discussed with the staff. Rhythm strip was reviewed. The patient remains in atrial fi brillation, heart rate under good control. Discussed with the patient's son. The patient sit on th e vent. The patient denies any chest pain or pressure to me. MEDICATIONS: Reviewed as per medication reconciliation, which was personally reviewed. PHYSICAL EXAMINATION: VITAL SIGNS: Temperature 97.3, heart rate of 98, blood pressure 109/53, respiration rate of 20. HEENT: Normocephalic, atraumatic. NECK: Status post tracheostomy. CARDIOVASCULAR: Irregularly irregular. Systolic murmur and diastolic murmur. PULMONARY: Mild rhonchi. GASTROINTESTINAL: Soft. Positive ascites. EXTREMITIES: Positive lower extremity edema. NEUROLOGIC: Awake and alert. PSYCHIATRIC: Calm, pleasant. LABORATORY: laboratory glucose this morning is 103. ASSESSMENT AND PLAN: 1. Hypoxemia respiratory failure, status post tracheostomy, vent dependent. 2. Atrial fibrillation, chronic on anticoagulation, heart rate controlled. 3. Renal failure on dialysis. 4. Ascites. 5. Possible ASD. 6. History of pulmonary hypertension. RECOMMENDATIONS: We will continue with supportive care. Anticoagulation as tolerated. Nutritional support will be continued. Dictated By: AMANDA LARA/ARNOLDO Conf#: [id number] DID#: [id number]
--- NOTE | 2016-10-09 10:54 | CONS ---
Date/Time of Note Date/Time of Note DATE: 10/09/16 TIME: 10:52 Assessment/Plan Assessment/Plan Additional Assessment/Plan Chief Complaint/Hosp Course ASSESSMENT: 1. Renal failure on dialysis. 2. Vent dependent respiratory failure. 3. Chronic obstructive pulmonary disease. 4. Atrial fibrillation. 5. Ascites, successful paracentesis done. 6. Dysphagia 7. G-tube clean,no leakage,tolerating feeding 8. Anemia: stable, likely from anemia of chronic disease 9. Status post septic shock. 10. Diabetes mellitus. 11. Decubitus ulcer. 12. Congestive heart failure. 13. Seizure disorder. 14. pneumonia,s/p sepsis 15.pulmonary hypertension Plan continue antibiotics per ID Reglan for gastroparesis Bactroban to g tube site. Routine G-tube site care no dressing around g tube site.which is clean Consultation Date/Type/Reason Admit Date/Time Sep 17, 2016 at 18:49 Type of Consultation: id 24 HR Interval Summary Constitutional: improved, no complaints Exam/Review of Systems Vital Signs Vitals Vital Signs Date Time Temp Pulse Resp B/P Pulse Ox O2 Delivery O2 Flow Rate FiO2 10/09/16 10:35 80 10/09/16 09:30 18 10/09/16 07:47 97.3 109/53 99 10/09/16 05:14 45 10/08/16 04:35 Mechanical Ventilator Intake and Output 10/08/16 10/08/16 10/09/16 15:00 23:00 07:00 Intake Total 400 ml Balance 400 ml Exam Constitutional: alert, oriented, well developed Psych: nl mood/affect, no complaints Head: atraumatic, normocephalic Eyes: EOMI, PERRL, nl conjunctiva, nl lids, nl sclera ENMT: nl external ears & nose, nl lips & teeth, nl nasal mucosa & septum Neck: non-tender, supple Respiratory: clear to auscultation, normal air movement Cardiovascular: nl pulses, regular rate and rhythm Gastrointestinal: nl liver, spleen, non-tender, soft Musculoskeletal: nl extremities to inspection, nl gait and stance Extremities: normal pulses Neurological: CHART PICKER II-XII intact, nl mental status, nl speech, nl strength Skin: nl turgor, No rash or lesions Lymph: nl lymph nodes Results Result Diagram: 11/30/16 0621 11/30/16 0621 Results 24 hrs Laboratory Tests Test 10/08/16 13:11 10/08/16 17:37 10/09/16 00:17 10/09/16 05:23 Bedside Glucose 117 126 124 103 Medications Medications Current Medications Levetiracetam/ Dextrose (Keppra Iv/D5W) 105 ml @ 420 mls/hr Q12 IVPB Last administered on 10/08/16at 21:18; Admin Dose 420 MLS/HR; Start 09/18/16 at 09: 00 Collagenase (Santyl) 1 applic DAILY TOP Last administered on 10/08/16at 09:27; Admin Dose 1 APPLIC; Start 09/18/16 at 09:00 Acetaminophen (Tylenol Liquid) 650 mg Q4H PRN NGT PAIN AND OR ELEVATED TEMP Last administered on 09/29/16at 12:07; Admin Dose 650 MG; Start 09/18/16 at 08: 00 Bisacodyl (Dulcolax Supp) 10 mg DAILY PRN [place] CONSTIPATION; Start 09/18/16 at 08:00 Mupirocin (Bactroban) Apply to bilateral nares ... BID TOP Last administered on 10/08/16at 21:24; Admin Dose 1 APPLIC; Start 09/18/16 at 09:00 Mirtazapine (Remeron) 7.5 mg HS GTB Last administered on 10/08/16at 21:19; Admin Dose 7.5 MG; Start 09/18/16 at 21:00 Ondansetron HCl (Zofran Inj) 4 mg Q4H PRN IV NAUSEA AND/OR VOMITING; Start 08/24 at 08:00 Morphine Sulfate (morphine) 2 mg Q3H PRN IV PAIN LEVEL 6-10 Last administered on 09/28/16at 12:25; Admin Dose 2 MG; Start 09/18/16 at 08:00 Lorazepam (Ativan) 0.5 mg Q3H PRN IV ANXIETY; Start 09/18/16 at 08:00 Amikacin Sulfate (Amikacin Iv Per Pharmacy) PER PHARMACY DOSING NOTE XX ; Start 09/18/16 at 13:00 Vancomycin HCl (Vanco Iv Per Pharmacy) PER PHARMACY DOSING NOTE XX ; Start 08/24 at 13:00 IV Flush (NS 10 ml) 10 ml PRN PRN IV IV PROTOCOL Last administered on at 06:01; Admin Dose 10 ML; Start 09/18/16 at 13:00 Miscellaneous Information 1 ea NOTE XX ; Start 09/19/16 at 12:00 Glucose (Glutose) 15 gm Q15M PRN PO DECREASED GLUCOSE; Start 09/19/16 at 12:00 Glucose (Glutose) 22.5 gm Q15M PRN PO DECREASED GLUCOSE; Start 09/19/16 at 12: 00 Dextrose (D50w Syringe) 25 ml Q15M PRN IV DECREASED GLUCOSE; Start 09/19/16 at 12:00 Dextrose (D50w Syringe) 50 ml Q15M PRN IV DECREASED GLUCOSE; Start 09/19/16 at 12:00 Glucagon (Glucagen) 1 mg Q15M PRN IM DECREASED GLUCOSE; Start 09/19/16 at 12: 00 Glucose 15 gm 15 gm Q15M PRN BUCCAL DECREASED GLUCOSE; Start 09/19/16 at 12:00 Vancomycin HCl (Vancocin) 250 ml @ 125 mls/hr Q96H IVPB Last administered on 10/05/16at 15:08; Admin Dose 125 MLS/HR; Start 09/23/16 at 13:00 Lansoprazole (Prevacid) 30 mg DAILY@06 PO Last administered on 10/09/16at 05:30 ; Admin Dose 30 MG; Start 09/27/16 at 06:00 Apixaban (Eliquis) 2.5 mg BID GTB Last administered on 10/08/16at 21:20; Admin Dose 2.5 MG; Start 09/30/16 at 09:00 Metoclopramide HCl (Reglan) 5 mg Q6 IV Last administered on 10/09/16at 05:30; Admin Dose 5 MG; Start 09/30/16 at 12:00 Insulin Aspart (Novolog Insulin Pen) NOVOLOG *MILD* ALGORI... Q6 SC Last administered on 10/07/16at 12:20; Admin Dose 1 UNIT; Start 09/30/16 at 12:00 Metronidazole (Flagyl) 500 mg Q8 PO Last administered on 10/09/16at 05:30; Admin Dose 500 MG; Start 10/01/16 at 14:30 Sildenafil Citrate (Revatio) 20 mg TID GTB Last administered on 10/08/16at 21: 19; Admin Dose 20 MG; Start 10/08/16 at 10:45 Miscellaneous Information VANCO TR LEVEL PRIOR... ONCE ONCE XX ; Start at 12:00; Stop 10/09/16 at 12:01 Albumin Human (Albumin Human 25%) 100 ml @ 100 mls/hr ONCE ONCE IV ; Start at 10:00; Stop 10/09/16 at 10:59 ANNABEL CISSE MD Oct 09, 2016 10:54
[2016-10-09] MEDS: LEVETIRACETAM IV 500 MG in DEXTROSE 5% 100 ML IVPB SCH ×2 (13:00→22:15)
[2016-10-09] MEDS: MUPIROCIN 2% 22 GM OINT TOP SCH ×2 (13:06→21:00)
[2016-10-09] MEDS: COLLAGENASE 30 GM TUBE TOP SCH (13:06)
[2016-10-09] MEDS: VANCOMYCIN 1.25 GM in SOD CHLORIDE 0.9% 250 ML IVPB SCH (14:23)
--- NOTE | 2016-10-09 15:17 | CONS ---
Date/Time of Note Date/Time of Note DATE: 10/09/16 TIME: 15:13 Consult Date/Type/Reason Admit Date/Time Sep 17, 2016 at 18:49 Type of Consultation: id Subjective no acute changes, s/p albumin durin HD, no fevers, nad Objective Vital Signs Date Time Temp Pulse Resp B/P Pulse Ox O2 Delivery O2 Flow Rate FiO2 10/09/16 13:27 88 20 94 70 10/09/16 12:13 98.5 109/55 10/08/16 04:35 Mechanical Ventilator Intake and Output 10/08/16 10/08/16 10/09/16 15:00 23:00 07:00 Intake Total 400 ml Balance 400 ml Results/Medications Result Diagram: 10/08/1662010/08/16620 Results 24 hrs Laboratory Tests Test 10/08/16 17:37 10/09/16 00:17 10/09/16 05:23 10/09/16 11:58 Bedside Glucose 126 124 103 133 Test 10/09/16 12:15 Vancomycin Level Trough 11.0 Medications Current Medications Levetiracetam/ Dextrose (Keppra Iv/D5W) 105 ml @ 420 mls/hr Q12 IVPB Last administered on 10/09/16at 13:00; Admin Dose 420 MLS/HR; Start 09/18/16 at 09:00 Collagenase (Santyl) 1 applic DAILY TOP Last administered on 10/09/16at 13:06; Admin Dose 1 APPLIC; Start 09/18/16 at 09:00 Acetaminophen (Tylenol Liquid) 650 mg Q4H PRN NGT PAIN AND OR ELEVATED TEMP Last administered on 09/29/16at 12:07; Admin Dose 650 MG; Start 09/18/16 at 08: 00 Bisacodyl (Dulcolax Supp) 10 mg DAILY PRN [place] CONSTIPATION; Start 09/18/16 at 08:00 Mupirocin (Bactroban) Apply to bilateral nares ... BID TOP Last administered on 10/09/16at 13:06; Admin Dose 1 APPLIC; Start 09/18/16 at 09:00 Mirtazapine (Remeron) 7.5 mg HS GTB Last administered on 10/08/16at 21:19; Admin Dose 7.5 MG; Start 09/18/16 at 21:00 Ondansetron HCl (Zofran Inj) 4 mg Q4H PRN IV NAUSEA AND/OR VOMITING; Start 08/24 at 08:00 Morphine Sulfate (morphine) 2 mg Q3H PRN IV PAIN LEVEL 6-10 Last administered on 09/28/16at 12:25; Admin Dose 2 MG; Start 09/18/16 at 08:00 Lorazepam (Ativan) 0.5 mg Q3H PRN IV ANXIETY; Start 09/18/16 at 08:00 Amikacin Sulfate (Amikacin Iv Per Pharmacy) PER PHARMACY DOSING NOTE XX ; Start 09/18/16 at 13:00 Vancomycin HCl (Vanco Iv Per Pharmacy) PER PHARMACY DOSING NOTE XX ; Start 08/24 at 13:00 IV Flush (NS 10 ml) 10 ml PRN PRN IV IV PROTOCOL Last administered on at 06:01; Admin Dose 10 ML; Start 09/18/16 at 13:00 Miscellaneous Information 1 ea NOTE XX ; Start 09/19/16 at 12:00 Glucose (Glutose) 15 gm Q15M PRN PO DECREASED GLUCOSE; Start 09/19/16 at 12:00 Glucose (Glutose) 22.5 gm Q15M PRN PO DECREASED GLUCOSE; Start 09/19/16 at 12: 00 Dextrose (D50w Syringe) 25 ml Q15M PRN IV DECREASED GLUCOSE; Start 09/19/16 at 12:00 Dextrose (D50w Syringe) 50 ml Q15M PRN IV DECREASED GLUCOSE; Start 09/19/16 at 12:00 Glucagon (Glucagen) 1 mg Q15M PRN IM DECREASED GLUCOSE; Start 09/19/16 at 12: 00 Glucose (Glutose) 15 gm Q15M PRN BUCCAL DECREASED GLUCOSE; Start 09/19/16 at 12:00 Lansoprazole (Prevacid) 30 mg DAILY@06 PO Last administered on 10/09/16at 05:30 ; Admin Dose 30 MG; Start 09/27/16 at 06:00 Apixaban (Eliquis) 2.5 mg BID GTB Last administered on 10/09/16at 13:04; Admin Dose 2.5 MG; Start 09/30/16 at 09:00 Metoclopramide HCl (Reglan) 5 mg Q6 IV Last administered on 10/09/16at 13:00; Admin Dose 5 MG; Start 09/30/16 at 12:00 Insulin Aspart (Novolog Insulin Pen) NOVOLOG *MILD* ALGORI... Q6 SC Last administered on 10/07/16at 12:20; Admin Dose 1 UNIT; Start 09/30/16 at 12:00 Metronidazole (Flagyl) 500 mg Q8 PO Last administered on 10/09/16at 13:03; Admin Dose 500 MG; Start 10/01/16 at 14:30 Sildenafil Citrate 20 mg 20 mg TID GTB Last administered on 10/09/16at 13:06; Admin Dose 20 MG; Start 10/08/16 at 10:45 Vancomycin HCl/ Sodium Chloride (Vancocin/NS) 250 ml @ 83.333 mls/ hr Q96H IVPB Last administered on 10/09/16at 14:23; Admin Dose 83.333 MLS/HR; Start 10/09/16 at 13:30 Assessment/Plan Chief Complaint/Hosp Course MICROBIOLOGY: Endotracheal aspirate growing multidrug resistant Pseudomonas. Blood cultures negative, wound culture of her sacrum growing MRSA. Urine culture growing Kelly glabrata. INDWELLING: trach, PEG, RIJ Perm-A-Cath, Left upper extremity PICC line placed on 09/18/2016. ANTIMICROBIALS: 1. Amikacin. 2. Vancomycin. 3. Flagyl PHYSICAL EXAMINATION: GENERAL: Fragile, chronically ill-appearing, elderly woman who is lying comfortably in bed. HEENT: Head atraumatic, normocephalic. Sclerae anicteric. Buccal mucosa dry. NECK: Supple. Tracheostomy present. CHEST: Rise symmetrical. Breath sounds diminished to bases. HEART: S1, S2. ABDOMEN: Soft, bowel tones present. EXTREMITIES: Without cyanosis. ASSESSMENT: 1. Ongoing sepsis, status post shock. 2. S/p healthcare-associated pneumonia with parapneumonic pleural effusion and sputum culture growing multi-drug resistant Pseudomonas aeruginosa. 3. Methicillin-resistant Staphylococcus aureus infected decubitus. 4. S/p kelly glabrata urinary tract infection. 5. Methicillin-resistant Staphylococcus aureus nares colonization. 6. End-stage renal disease, hemodialysis dependent. 7. History of cerebrovascular accident. 8. Ascites==> s/p paracentesis 09/24===> cx negative 9. Sacral decub, poss OM 10. ALLERGY TO PENICILLIN AND SULFA. PLAN: Clinically unchanged, continue abx, topical Bactroban to nares, local wound care [facility] staff Problems: RAISSA ROA NP Oct 09, 2016 15:17
[2016-10-09] MEDS: EPOETIN 10000 UNITS/1 ML INJ (ESRD) SC SCH (15:40)
[2016-10-09] MEDS: SOD CHLORIDE 0.9% IVPB SCH (15:40)
[2016-10-09] MEDS: AMIKACIN IVPB SCH (15:40)
[2016-10-09] MEDS: MIRTAZAPINE 15 MG TAB GTB SCH (22:18)
[2016-10-10] VITALS (22 sets, daily range): BP systolic 107–136; BP diastolic 43–60; PULSE 83–106; RESP 12–18
[2016-10-10] MEDS: METOCLOPRAMIDE 10 MG INJ IV SCH ×4 (00:35→17:35)
[2016-10-10] MEDS: IPRATROPIUM (HFA) 12.9 GM INHALER INH SCH ×6 (01:19→21:00)
[2016-10-10] MEDS: LEVALBUTEROL (HFA) 15 GM INHALER INH SCH ×6 (01:19→21:00)
[2016-10-10] MEDS: INSULIN ASPART [NOVOLOG] 3 ML PEN SC SCH ×4 (06:00→17:35)
[2016-10-10] MEDS: LANSOPRAZOLE 30 MG CAP PO SCH (06:16)
[2016-10-10] MEDS: metroNIDAZOLE 500 MG TAB PO SCH ×3 (06:16→22:28)
[2016-10-10 06:27] LABS: BASOPHILS % 0.2 % (0.0-2.0); EOSINOPHILS % 0.2 % (0.0-7.0); HEMATOCRIT 28.4 % (37.0-47.0); LYMPHOCYTES # 1.6 10^3/ul (0.8-2.9); LYMPHOCYTES % 9.1 % (15.0-51.0); MEAN CORPUSCULAR HEMOGLOBIN 30.9 pg (29.0-33.0); MEAN CORPUSCULAR HGB CONC 31.7 g/dl (32.0-37.0); MEAN CORPUSCULAR VOLUME 97.5 fl (82.0-101.0); MEAN PLATELET VOLUME 7.8 fl (7.4-10.4); MONOCYTE # 0.9 10^3/ul (0.3-0.9); MONOCYTES % 4.7 % (0.0-11.0); NEUTROPHIL # 15.6 10^3/ul (1.6-7.5); NEUTROPHILS % 85.8 % (39.0-77.0); PLATELET COUNT 226 10^3/UL (140-440); RED BLOOD COUNT 2.92 10^6/ul (4.20-5.40); RED CELL DISTRIBUTION WIDTH 18.8 % (11.5-14.5); UNCORRECTED WBC 18.2 10^3/ul (4.8-10.8); WHITE BLOOD COUNT 18.2 10^3/ul (4.8-10.8)
[2016-10-10 06:29] LABS: CONDITION 1; LH ANALYZER COMMENTS 1; SUSPECT 1
[2016-10-10 07:02] LABS: CREATININE 1.46 mg/dl (0.44-1.00)
[2016-10-10 07:03] LABS: CALCIUM 8.4 mg/dl (8.4-10.2); PHOSPHORUS 3.4 mg/dl (2.5-4.9)
[2016-10-10 07:04] LABS: MAGNESIUM 2.3 mg/dl (1.7-2.5)
[2016-10-10] MEDS: BUDESONIDE (NEB) 0.5MG/2ML AMP HHN SCH ×2 (08:25→20:24)
--- NOTE | 2016-10-10 09:43 | PN ---
DATE: 10/10/2016 CARDIOLOGY FOLLOWUP SUBJECTIVE: Discussed with the staff, discussed with the patient's son. Rhythm strip was reviewed. The patient remains in atrial fibrillation. Heart rate is overall stable. She is still on the ve nt, status post trach. Denies any chest pain, pressure, or palpitation to me though. MEDICATIONS: Reviewed, as per medication reconciliation, was personally reviewed. PHYSICAL EXAMINATION: VITAL SIGNS: Temperature 97.9, heart rate of 86, blood pressure 136/58, respiratory rate of 14. HEENT: Normocephalic, atraumatic. Pupils are equal. NECK: Status post tracheostomy, on the vent. EYES: Pupils are equal. CARDIOVASCULAR: Irregularly irregular. Systolic murmur. Diastolic murmur. PULMONARY: With mild rhonchi. GASTROINTESTINAL: Soft. Positive for ascites. No rebound or guarding. EXTREMITIES: Positive lower extremity edema. NEUROLOGIC: Awake and alert. Responds appropriately. PSYCHIATRIC: Appears to be calm and pleasant. There are multiple ecchymoses noted. LABORATORY: WBC of 18.2, hemoglobin of 9, platelets of 226. Sodium 130, potassium 4, BUN of 43, cr eatinine 1.46, glucose of 121. ASSESSMENT AND PLAN: 1. Atrial fibrillation, chronic. Currently on anticoagulation. Heart rate controlled. 2. Hypoxemic respiratory failure, status post tracheostomy, vent dependent. 3. Right-sided heart failure and possible ASD. 4. Ascites. 5. History of pulmonary hypertension. 6. Renal failure, on dialysis. 7. Leukocytosis and possible sepsis. RECOMMENDATIONS: Antibiotic is managed as per ID's recommendations. Continue with hemodialysis. H eart rate is controlled. Anticoagulation as tolerated will be continued. Monitor on telemetry as w ell. was started. Will continue as tolerated. Dictated By: AMANDA LARA/ARNOLDO Conf#: [id number] DID#: [id number] CC: RUDDY GEE DO;*EndCC*
--- NOTE | 2016-10-10 10:18 | PN ---
DATE: 10/10/2016 SUBJECTIVE: The patient is stable, had hemodialysis yesterday, and tolerated it well. No other acu te events noted. OBJECTIVE: VITAL SIGNS: Blood pressure is 136/58, respirations 14, pulse 94, temperature 97.9. I's and O's: 3 liters in and 600 mL out, with 2.5 liters removed with dialysis. HEENT: Head is normocephalic. NECK: Supple. HEART: Regular rate. LUNGS: Showed diminished breath sounds at the base. ABDOMEN: Soft, nontender to palpation. No rebound or guarding. EXTREMITIES: Negative for clubbing or cyanosis. Trace edema. DERMATOLOGIC: No rashes. MUSCULOSKELETAL: Have no joint effusion. NEUROLOGIC: No change in exam. MEDICATIONS: The patient's medications have been reviewed. LABORATORY DATA: Shows sodium 130, potassium 4.0, chloride 92, BUN 43, creatinine 1.46. White coun t 18.2, hemoglobin 9.0, hematocrit 28.4, platelet count is 226. ASSESSMENT AND PLAN: 1. Sepsis, status post shock. Etiology is secondary to pneumonia and decubitus wound. Continue th e current antibiotic regimen. White count is starting to trend upwards again. Will follow up with infectious disease. 2. Fungal urinary tract infection. Continue Voriconazole. 3. End-stage renal disease. The patient had hemodialysis yesterday and tolerated it well. Plan fo r dialysis tomorrow. 4. Leukocytosis. Etiology is possibly multifactorial due to underlying infection. Will continue t o monitor. 5. Hyponatremia. Continue free water restriction. 6. Abdominal ascites, likely from right-sided heart failure and end-stage renal disease. Will cont inue to monitor. Defer to GI as to whether the patient needs paracentesis. 7. Pulmonary hypertension. Continue sildenafil. 8. Anemia. Continue to monitor hemoglobin and hematocrit levels. Continue Epogen with dialysis. 9. Seizure disorder. Continue Keppra. 10. Decubitus wound. Continue wound care. 11. Diabetes. Continue Accu-Cheks and insulin sliding scale. 12. Dysphagia. Status post PEG tube feedings. 13. Ventilatory-dependent respiratory failure. Vent settings have been reviewed. ABG has been rev iewed. Continue to monitor. 14. Chronic encephalopathy. No change. 15. Atrial fibrillation. Rate controlled. Continue medical management. 16. History of cerebrovascular accident. 17. History of congestive heart failure and right-sided heart failure. Continue medical management . 18. Gastrointestinal and deep venous thrombosis prophylaxis. Continue PPI and Eliquis. Dictated By: RUDDY BUSTILLOS/ARNOLDO Conf#: [id number] DID#: [id number]
[2016-10-10] MEDS: APIXABAN 5 MG TABLET GTB SCH ×2 (10:43→20:19)
[2016-10-10] MEDS: SILDENAFIL 20 MG TAB GTB SCH ×3 (10:43→20:19)
[2016-10-10] MEDS: LEVETIRACETAM IV 500 MG in DEXTROSE 5% 100 ML IVPB SCH ×2 (10:44→20:19)
[2016-10-10] MEDS: MUPIROCIN 2% 22 GM OINT TOP SCH ×2 (10:44→21:28)
[2016-10-10] MEDS: COLLAGENASE 30 GM TUBE TOP SCH (10:45)
--- NOTE | 2016-10-10 13:57 | CONS ---
Date/Time of Note Date/Time of Note DATE: 10/10/16 TIME: 13:56 Consult Date/Type/Reason Admit Date/Time Sep 17, 2016 at 18:49 Type of Consultation: pulmonary Subjective Comfortable no new events Objective Vital Signs Date Time Temp Pulse Resp B/P Pulse Ox O2 Delivery O2 Flow Rate FiO2 10/10/16 13:16 82 16 98 50 10/10/16 11:44 98.6 107/43 10/08/16 04:35 Mechanical Ventilator Intake and Output 10/09/16 10/09/16 10/10/16 14:59 22:59 06:59 Intake Total 600 ml 1155.9 ml 1365 ml Output Total 2500 ml Balance -1900 ml 1155.9 ml 1365 ml OBJECTIVE: VITAL SIGNS: As above NECK: Supple. No JVD or lymphadenopathy. CARDIAC: S1, S2, no added sounds or murmurs. CHEST: Diminished air entry bilaterally. ABDOMEN: Soft, nontender. No guarding or rebound. EXTREMITIES: No Show Results/Medications Result Diagram: 10/10/16 0520 10/10/16 0520 Results 24 hrs Laboratory Tests Test 10/09/16 17:20 10/10/16 00:33 10/10/16 05:20 10/10/16 06:09 Bedside Glucose 102 113 127 Anion Gap 11 Basophils # 0.0 Basophils % 0.2 Blood Morphology Comment Blood Urea Nitrogen 43 H Calcium Level 8.4 Carbon Dioxide Level 31 Chloride Level 92 L Creatinine 1.46 H Eosinophils # 0.0 Eosinophils % 0.2 Glucose Level 121 Hematocrit 28.4 L Hemoglobin 9.0 L Lymphocytes # 1.6 Lymphocytes % 9.1 L Magnesium Level 2.3 Mean Corpuscular Hemoglobin 30.9 Mean Corpuscular Hemoglobin Concent 31.7 L Mean Corpuscular Volume 97.5 Mean Platelet Volume 7.8 Monocytes # 0.9 Monocytes % 4.7 Neutrophils # 15.6 H Neutrophils % 85.8 H Nucleated Red Blood Cells # 0.0 Nucleated Red Blood Cells % 0.0 Phosphorus Level 3.4 Platelet Count 226 Potassium Level 4.0 Red Blood Count 2.92 L Red Cell Distribution Width 18.8 H Sodium Level 130 L White Blood Count 18.2 #H Test 10/10/16 12:35 Bedside Glucose 118 Medications Current Medications Levetiracetam/ Dextrose (Keppra Iv/D5W) 105 ml @ 420 mls/hr Q12 IVPB Last administered on 10/10/16at 10:44; Admin Dose 420 MLS/HR; Start 09/18/16 at 09:00 Collagenase (Santyl) 1 applic DAILY TOP Last administered on 10/10/16at 10:45; Admin Dose 1 APPLIC; Start 09/18/16 at 09:00 Acetaminophen (Tylenol Liquid) 650 mg Q4H PRN NGT PAIN AND OR ELEVATED TEMP Last administered on 09/29/16at 12:07; Admin Dose 650 MG; Start 09/18/16 at 08: 00 Bisacodyl (Dulcolax Supp) [address] [place] CONSTIPATION; Start 09/18/16 at 08:00 Mupirocin (Bactroban) Apply to bilateral nares ... BID TOP Last administered on 10/10/16at 10:44; Admin Dose 1 APPLIC; Start 09/18/16 at 09:00 Mirtazapine (Remeron) 7.5 mg HS GTB Last administered on 10/09/16at 22:18; Admin Dose 7.5 MG; Start 09/18/16 at 21:00 Ondansetron HCl (Zofran Inj) 4 mg Q4H PRN IV NAUSEA AND/OR VOMITING; Start 08/24 at 08:00 Morphine Sulfate (morphine) 2 mg Q3H PRN IV PAIN LEVEL 6-10 Last administered on 09/28/16at 12:25; Admin Dose 2 MG; Start 09/18/16 at 08:00 Lorazepam (Ativan) 0.5 mg Q3H PRN IV ANXIETY; Start 09/18/16 at 08:00 Amikacin Sulfate (Amikacin Iv Per Pharmacy) PER PHARMACY DOSING NOTE XX ; Start 09/18/16 at 13:00 Vancomycin HCl (Vanco Iv Per Pharmacy) PER PHARMACY DOSING NOTE XX ; Start 08/24 at 13:00 IV Flush (NS 10 ml) 10 ml PRN PRN IV IV PROTOCOL Last administered on at 06:01; Admin Dose 10 ML; Start 09/18/16 at 13:00 Miscellaneous Information 1 ea NOTE XX ; Start 09/19/16 at 12:00 Glucose (Glutose) 15 gm Q15M PRN PO DECREASED GLUCOSE; Start 09/19/16 at 12:00 Glucose (Glutose) 22.5 gm Q15M PRN PO DECREASED GLUCOSE; Start 09/19/16 at 12: 00 Dextrose (D50w Syringe) 25 ml Q15M PRN IV DECREASED GLUCOSE; Start 09/19/16 at 12:00 Dextrose (D50w Syringe) 50 ml Q15M PRN IV DECREASED GLUCOSE; Start 09/19/16 at 12:00 Glucagon (Glucagen) 1 mg Q15M PRN IM DECREASED GLUCOSE; Start 09/19/16 at 12: 00 Glucose (Glutose) 15 gm Q15M PRN BUCCAL DECREASED GLUCOSE; Start 09/19/16 at 12:00 Lansoprazole (Prevacid) 30 mg DAILY@06 PO Last administered on 10/10/16at 06:16 ; Admin Dose 30 MG; Start 09/27/16 at 06:00 Apixaban (Eliquis) 2.5 mg BID GTB Last administered on 10/10/16at 10:43; Admin Dose 2.5 MG; Start 09/30/16 at 09:00 Metoclopramide HCl (Reglan) 5 mg Q6 IV Last administered on 10/10/16at 12:37; Admin Dose 5 MG; Start 09/30/16 at 12:00 Insulin Aspart (Novolog Insulin Pen) NOVOLOG *MILD* ALGORI... Q6 SC Last administered on 10/07/16at 12:20; Admin Dose 1 UNIT; Start 09/30/16 at 12:00 Metronidazole (Flagyl) 500 mg Q8 PO Last administered on 10/10/16at 06:16; Admin Dose 500 MG; Start 10/01/16 at 14:30 Sildenafil Citrate 20 mg 20 mg TID GTB Last administered on 10/10/16at 12:38; Admin Dose 20 MG; Start 10/08/16 at 10:45 Vancomycin HCl/ Sodium Chloride (Vancocin/NS) 250 ml @ 83.333 mls/ hr Q96H IVPB Last administered on 10/09/16at 14:23; Admin Dose 83.333 MLS/HR; Start 10/09/16 at 13:30 Assessment/Plan Chief Complaint/Hosp Course IMPRESSION: 1. Ventilatory-dependent respiratory failure. 2. Status post septic shock. 3. Decubitus ulcers and polymicrobial sepsis. Persistent leukocytosis 4. Hypernatremia. 5. End-stage renal failure on hemodialysis. 6. Underlying seizure disorder. PLAN: 1. Continue supplemental O2. 2. Continue vent support. 3. Continue antibiotics. 4. DVT and GI prophylaxis. 5. Consider transfer to [facility] Problems: JULIA HERNANDEZ MD, [facility] Oct 10, 2016 13:57
--- NOTE | 2016-10-10 14:09 | CONS ---
Date/Time of Note Date/Time of Note DATE: 10/10/16 TIME: 14:08 Consult Date/Type/Reason Admit Date/Time Sep 17, 2016 at 18:49 Type of Consultation: ID Subjective no acute changes, lying comfortably in bed, no fevers, nad Objective Vital Signs Date Time Temp Pulse Resp B/P Pulse Ox O2 Delivery O2 Flow Rate FiO2 10/10/16 13:16 82 16 98 50 10/10/16 11:44 98.6 107/43 10/08/16 04:35 Mechanical Ventilator Intake and Output 10/09/16 10/09/16 10/10/16 15:00 23:00 07:00 Intake Total 600 ml 1260.9 ml 1260 ml Output Total 2500 ml Balance -1900 ml 1260.9 ml 1260 ml Results/Medications Result Diagram: 10/10/16 0520 10/10/16 0520 Results 24 hrs Laboratory Tests Test 10/09/16 17:20 10/10/16 00:33 10/10/16 05:20 10/10/16 06:09 Bedside Glucose 102 113 127 Anion Gap 11 Basophils # 0.0 Basophils % 0.2 Blood Morphology Comment Blood Urea Nitrogen 43 H Calcium Level 8.4 Carbon Dioxide Level 31 Chloride Level 92 L Creatinine 1.46 H Eosinophils # 0.0 Eosinophils % 0.2 Glucose Level 121 Hematocrit 28.4 L Hemoglobin 9.0 L Lymphocytes # 1.6 Lymphocytes % 9.1 L Magnesium Level 2.3 Mean Corpuscular Hemoglobin 30.9 Mean Corpuscular Hemoglobin Concent 31.7 L Mean Corpuscular Volume 97.5 Mean Platelet Volume 7.8 Monocytes # 0.9 Monocytes % 4.7 Neutrophils # 15.6 H Neutrophils % 85.8 H Nucleated Red Blood Cells # 0.0 Nucleated Red Blood Cells % 0.0 Phosphorus Level 3.4 Platelet Count 226 Potassium Level 4.0 Red Blood Count 2.92 L Red Cell Distribution Width 18.8 H Sodium Level 130 L White Blood Count 18.2 #H Test 10/10/16 12:35 Bedside Glucose 118 Medications Current Medications Levetiracetam/ Dextrose (Keppra Iv/D5W) 105 ml @ 420 mls/hr Q12 IVPB Last administered on 10/10/16at 10:44; Admin Dose 420 MLS/HR; Start 09/18/16 at 09:00 Collagenase (Santyl) 1 applic DAILY TOP Last administered on 10/10/16at 10:45; Admin Dose 1 APPLIC; Start 09/18/16 at 09:00 Acetaminophen (Tylenol Liquid) 650 mg Q4H PRN NGT PAIN AND OR ELEVATED TEMP Last administered on 09/29/16at 12:07; Admin Dose 650 MG; Start 09/18/16 at 08: 00 Bisacodyl (Dulcolax Supp) 10 mg DAILY PRN [place] CONSTIPATION; Start 09/18/16 at 08:00 Mupirocin (Bactroban) Apply to bilateral nares ... BID TOP Last administered on 10/10/16at 10:44; Admin Dose 1 APPLIC; Start 09/18/16 at 09:00 Mirtazapine (Remeron) 7.5 mg HS GTB Last administered on 10/09/16at 22:18; Admin Dose 7.5 MG; Start 09/18/16 at 21:00 Ondansetron HCl (Zofran Inj) 4 mg Q4H PRN IV NAUSEA AND/OR VOMITING; Start 08/24 at 08:00 Morphine Sulfate (morphine) 2 mg Q3H PRN IV PAIN LEVEL 6-10 Last administered on 09/28/16at 12:25; Admin Dose 2 MG; Start 09/18/16 at 08:00 Lorazepam (Ativan) 0.5 mg Q3H PRN IV ANXIETY; Start 09/18/16 at 08:00 Amikacin Sulfate (Amikacin Iv Per Pharmacy) PER PHARMACY DOSING NOTE XX ; Start 09/18/16 at 13:00 Vancomycin HCl (Vanco Iv Per Pharmacy) PER PHARMACY DOSING NOTE XX ; Start 08/24 at 13:00 IV Flush (NS 10 ml) 10 ml PRN PRN IV IV PROTOCOL Last administered on at 06:01; Admin Dose 10 ML; Start 09/18/16 at 13:00 Miscellaneous Information 1 ea NOTE XX ; Start 09/19/16 at 12:00 Glucose (Glutose) 15 gm Q15M PRN PO DECREASED GLUCOSE; Start 09/19/16 at 12:00 Glucose (Glutose) 22.5 gm Q15M PRN PO DECREASED GLUCOSE; Start 09/19/16 at 12: 00 Dextrose (D50w Syringe) 25 ml Q15M PRN IV DECREASED GLUCOSE; Start 09/19/16 at 12:00 Dextrose (D50w Syringe) 50 ml Q15M PRN IV DECREASED GLUCOSE; Start 09/19/16 at 12:00 Glucagon (Glucagen) 1 mg Q15M PRN IM DECREASED GLUCOSE; Start 09/19/16 at 12: 00 Glucose (Glutose) 15 gm Q15M PRN BUCCAL DECREASED GLUCOSE; Start 09/19/16 at 12:00 Lansoprazole (Prevacid) 30 mg DAILY@06 PO Last administered on 10/10/16at 06:16 ; Admin Dose 30 MG; Start 09/27/16 at 06:00 Apixaban (Eliquis) 2.5 mg BID GTB Last administered on 10/10/16at 10:43; Admin Dose 2.5 MG; Start 09/30/16 at 09:00 Metoclopramide HCl (Reglan) 5 mg Q6 IV Last administered on 10/10/16at 12:37; Admin Dose 5 MG; Start 09/30/16 at 12:00 Insulin Aspart (Novolog Insulin Pen) NOVOLOG *MILD* ALGORI... Q6 SC Last administered on 10/07/16at 12:20; Admin Dose 1 UNIT; Start 09/30/16 at 12:00 Metronidazole (Flagyl) 500 mg Q8 PO Last administered on 10/10/16at 06:16; Admin Dose 500 MG; Start 10/01/16 at 14:30 Sildenafil Citrate 20 mg 20 mg TID GTB Last administered on 10/10/16at 12:38; Admin Dose 20 MG; Start 10/08/16 at 10:45 Vancomycin HCl/ Sodium Chloride (Vancocin/NS) 250 ml @ 83.333 mls/ hr Q96H IVPB Last administered on 10/09/16at 14:23; Admin Dose 83.333 MLS/HR; Start 10/09/16 at 13:30 Assessment/Plan Chief Complaint/Hosp Course MICROBIOLOGY: Endotracheal aspirate growing multidrug resistant Pseudomonas. Blood cultures negative, wound culture of her sacrum growing MRSA. Urine culture growing Kelly glabrata. INDWELLING: trach, PEG, RIJ Perm-A-Cath, Left upper extremity PICC line placed on 09/18/2016. ANTIMICROBIALS: 1. Amikacin. 2. Vancomycin. 3. Flagyl PHYSICAL EXAMINATION: GENERAL: Fragile, chronically ill-appearing, elderly woman who is lying comfortably in bed. HEENT: Head atraumatic, normocephalic. Sclerae anicteric. Buccal mucosa dry. NECK: Supple. Tracheostomy present. CHEST: Rise symmetrical. Breath sounds diminished to bases. HEART: S1, S2. ABDOMEN: Soft, bowel tones present. EXTREMITIES: Without cyanosis. ASSESSMENT: 1. Ongoing sepsis, status post shock. 2. S/p healthcare-associated pneumonia with parapneumonic pleural effusion and sputum culture growing multi-drug resistant Pseudomonas aeruginosa. 3. Methicillin-resistant Staphylococcus aureus infected decubitus. 4. S/p kelly glabrata urinary tract infection. 5. Methicillin-resistant Staphylococcus aureus nares colonization. 6. End-stage renal disease, hemodialysis dependent. 7. History of cerebrovascular accident. 8. Ascites==> s/p paracentesis 09/24===> cx negative 9. Sacral decub, poss OM 10. ALLERGY TO PENICILLIN AND SULFA. PLAN: Clinically unchanged, continue abx, topical Bactroban to nares, local wound care, HD per renal DW staff Problems: RAISSA ROA NP Oct 10, 2016 14:09
--- NOTE | 2016-10-10 16:01 | CONS ---
Date/Time of Note Date/Time of Note DATE: 10/10/16 TIME: 16:00 Assessment/Plan Assessment/Plan Additional Assessment/Plan Assessment/Plan Additional Assessment/Plan Chief Complaint/Hosp Course ASSESSMENT: 1. Renal failure on dialysis. 2. Vent dependent respiratory failure. 3. Chronic obstructive pulmonary disease. 4. Atrial fibrillation. 5. Ascites, successful paracentesis done. 6. Dysphagia 7. G-tube clean,no leakage,tolerating feeding 8. Anemia: stable, likely from anemia of chronic disease 9. Status post septic shock. 10. Diabetes mellitus. 11. Decubitus ulcer. 12. Congestive heart failure. 13. Seizure disorder. 14. pneumonia,s/p sepsis 15.pulmonary hypertension 16 persistent leucocytosis Plan continue antibiotics per ID Reglan for gastroparesis Bactroban to g tube site. Routine G-tube site care no dressing around g tube site.which is clean Consultation Date/Type/Reason Admit Date/Time Sep 17, 2016 at 18:49 Type of Consultation: ID [id number] HR Interval Summary Constitutional: no complaints Exam/Review of Systems Vital Signs Vitals Vital Signs Date Time Temp Pulse Resp B/P Pulse Ox O2 Delivery O2 Flow Rate FiO2 10/10/16 15:30 85 14 98 50 10/10/16 11:44 98.6 107/43 10/08/16 04:35 Mechanical Ventilator Intake and Output 10/09/16 10/09/16 10/10/16 15:00 23:00 07:00 Intake Total 600 ml 1260.9 ml 1260 ml Output Total 2500 ml Balance -1900 ml 1260.9 ml 1260 ml Exam Constitutional: alert, oriented, well developed Psych: nl mood/affect, no complaints Head: atraumatic, normocephalic Eyes: EOMI, PERRL, nl conjunctiva, nl lids, nl sclera ENMT: nl external ears & nose, nl lips & teeth, nl nasal mucosa & septum Neck: non-tender, supple Respiratory: clear to auscultation, normal air movement Cardiovascular: nl pulses, regular rate and rhythm Gastrointestinal: nl liver, spleen, non-tender, soft Musculoskeletal: nl extremities to inspection, nl gait and stance Extremities: normal pulses Neurological: [employer] II-XII intact, nl mental status, nl speech, nl strength Skin: nl turgor, No rash or lesions Lymph: nl lymph nodes Results Result Diagram: 10/10/16 0520 10/10/16 0520 Results 24 hrs Laboratory Tests Test 10/09/16 17:20 10/10/16 00:33 10/10/16 05:20 10/10/16 06:09 Bedside Glucose 102 113 127 Anion Gap 11 Basophils # 0.0 Basophils % 0.2 Blood Morphology Comment Blood Urea Nitrogen 43 H Calcium Level 8.4 Carbon Dioxide Level 31 Chloride Level 92 L Creatinine 1.46 H Eosinophils # 0.0 Eosinophils % 0.2 Glucose Level 121 Hematocrit 28.4 L Hemoglobin 9.0 L Lymphocytes # 1.6 Lymphocytes % 9.1 L Magnesium Level 2.3 Mean Corpuscular Hemoglobin 30.9 Mean Corpuscular Hemoglobin Concent 31.7 L Mean Corpuscular Volume 97.5 Mean Platelet Volume 7.8 Monocytes # 0.9 Monocytes % 4.7 Neutrophils # 15.6 H Neutrophils % 85.8 H Nucleated Red Blood Cells # 0.0 Nucleated Red Blood Cells % 0.0 Phosphorus Level 3.4 Platelet Count 226 Potassium Level 4.0 Red Blood Count 2.92 L Red Cell Distribution Width 18.8 H Sodium Level 130 L White Blood Count 18.2 #H Test 10/10/16 12:35 Bedside Glucose 118 Medications Medications Current Medications Levetiracetam/ Dextrose (Keppra Iv/D5W) 105 ml @ 420 mls/hr Q12 IVPB Last administered on 10/10/16at 10:44; Admin Dose 420 MLS/HR; Start 09/18/16 at 09:00 Collagenase (Santyl) 1 applic DAILY TOP Last administered on 10/10/16at 10:45; Admin Dose 1 APPLIC; Start 09/18/16 at 09:00 Acetaminophen (Tylenol Liquid) 650 mg Q4H PRN NGT PAIN AND OR ELEVATED TEMP Last administered on 09/29/16at 12:07; Admin Dose 650 MG; Start 09/18/16 at 08: 00 Bisacodyl (Dulcolax Supp) 10 mg DAILY PRN [place] CONSTIPATION; Start 09/18/16 at 08:00 Mupirocin (Bactroban) Apply to bilateral nares ... BID TOP Last administered on 10/10/16at 10:44; Admin Dose 1 APPLIC; Start 09/18/16 at 09:00 Mirtazapine (Remeron) 7.5 mg HS GTB Last administered on 10/09/16at 22:18; Admin Dose 7.5 MG; Start 09/18/16 at 21:00 Ondansetron HCl (Zofran Inj) 4 mg Q4H PRN IV NAUSEA AND/OR VOMITING; Start 08/24 at 08:00 Morphine Sulfate (morphine) 2 mg Q3H PRN IV PAIN LEVEL 6-10 Last administered on 09/28/16at 12:25; Admin Dose 2 MG; Start 09/18/16 at 08:00 Lorazepam (Ativan) 0.5 mg Q3H PRN IV ANXIETY; Start 09/18/16 at 08:00 Amikacin Sulfate (Amikacin Iv Per Pharmacy) PER PHARMACY DOSING NOTE XX ; Start 09/18/16 at 13:00 Vancomycin HCl (Vanco Iv Per Pharmacy) PER PHARMACY DOSING NOTE XX ; Start 08/24 at 13:00 IV Flush (NS 10 ml) 10 ml PRN PRN IV IV PROTOCOL Last administered on at 06:01; Admin Dose 10 ML; Start 09/18/16 at 13:00 Miscellaneous Information 1 ea NOTE XX ; Start 09/19/16 at 12:00 Glucose (Glutose) 15 gm Q15M PRN PO DECREASED GLUCOSE; Start 09/19/16 at 12:00 Glucose (Glutose) 22.5 gm Q15M PRN PO DECREASED GLUCOSE; Start 09/19/16 at 12: 00 Dextrose (D50w Syringe) 25 ml Q15M PRN IV DECREASED GLUCOSE; Start 09/19/16 at 12:00 Dextrose (D50w Syringe) 50 ml Q15M PRN IV DECREASED GLUCOSE; Start 09/19/16 at 12:00 Glucagon (Glucagen) 1 mg Q15M PRN IM DECREASED GLUCOSE; Start 09/19/16 at 12: 00 Glucose (Glutose) 15 gm Q15M PRN BUCCAL DECREASED GLUCOSE; Start 09/19/16 at 12:00 Lansoprazole (Prevacid) 30 mg DAILY@06 PO Last administered on 10/10/16at 06:16 ; Admin Dose 30 MG; Start 09/27/16 at 06:00 Apixaban (Eliquis) 2.5 mg BID GTB Last administered on 10/10/16at 10:43; Admin Dose 2.5 MG; Start 09/30/16 at 09:00 Metoclopramide HCl (Reglan) 5 mg Q6 IV Last administered on 10/10/16at 12:37; Admin Dose 5 MG; Start 09/30/16 at 12:00 Insulin Aspart (Novolog Insulin Pen) NOVOLOG *MILD* ALGORI... Q6 SC Last administered on 10/07/16at 12:20; Admin Dose 1 UNIT; Start 09/30/16 at 12:00 Metronidazole (Flagyl) 500 mg Q8 PO Last administered on 10/10/16at 06:16; Admin Dose 500 MG; Start 10/01/16 at 14:30 Sildenafil Citrate 20 mg 20 mg TID GTB Last administered on 10/10/16at 12:38; Admin Dose 20 MG; Start 10/08/16 at 10:45 Vancomycin HCl/ Sodium Chloride (Vancocin/NS) 250 ml @ 83.333 mls/ hr Q96H IVPB Last administered on 10/09/16at 14:23; Admin Dose 83.333 MLS/HR; Start 10/09/16 at 13:30 ANNABEL CISSE MD Oct 10, 2016 16:01
[2016-10-10] MEDS: MIRTAZAPINE 15 MG TAB GTB SCH (20:19)
[2016-10-10] MEDS: PRAMOXINE 1% 15 GM RECT FOAM PR SCH (21:35)
[2016-10-11] VITALS (31 sets, daily range): BP systolic 91–137; BP diastolic 48–64; PULSE 87–111; RESP 13–20
[2016-10-11] MEDS: METOCLOPRAMIDE 10 MG INJ IV SCH ×4 (00:20→18:19)
[2016-10-11] MEDS: IPRATROPIUM (HFA) 12.9 GM INHALER INH SCH ×6 (01:20→21:16)
[2016-10-11] MEDS: LEVALBUTEROL (HFA) 15 GM INHALER INH SCH ×6 (01:21→21:16)
[2016-10-11] MEDS: LANSOPRAZOLE 30 MG CAP PO SCH (05:47)
[2016-10-11] MEDS: metroNIDAZOLE 500 MG TAB PO SCH ×3 (05:48→21:06)
[2016-10-11] MEDS: INSULIN ASPART [NOVOLOG] 3 ML PEN SC SCH ×4 (05:56→18:00)
[2016-10-11 08:05] LABS: HEMATOCRIT 27.5 % (37.0-47.0); HEMOGLOBIN 8.6 g/dl (12.0-16.0); MEAN CORPUSCULAR HEMOGLOBIN 30.8 pg (29.0-33.0); MEAN CORPUSCULAR HGB CONC 31.1 g/dl (32.0-37.0); MEAN PLATELET VOLUME 7.8 fl (7.4-10.4); PLATELET COUNT 240 10^3/UL (140-440); RED BLOOD COUNT 2.77 10^6/ul (4.20-5.40); RED CELL DISTRIBUTION WIDTH 19.8 % (11.5-14.5); UNCORRECTED WBC 14.9 10^3/ul (4.8-10.8); WHITE BLOOD COUNT 14.9 10^3/ul (4.8-10.8)
[2016-10-11 08:08] LABS: POTASSIUM 4.6 mmol/L (3.5-5.1)
[2016-10-11 08:09] LABS: CREATININE 1.75 mg/dl (0.44-1.00)
[2016-10-11 08:10] LABS: CALCIUM 8.1 mg/dl (8.4-10.2); MAGNESIUM 2.3 mg/dl (1.7-2.5); PHOSPHORUS 3.7 mg/dl (2.5-4.9)
[2016-10-11 08:19] LABS: CONDITION 1; LH ANALYZER COMMENTS 1; SUSPECT 1
--- NOTE | 2016-10-11 08:55 | PN ---
DATE: 10/11/2016 SUBJECTIVE: The patient is stable, no acute events overnight. No hemoptysis, hematemesis or hemato chezia. OBJECTIVE: VITAL SIGNS: Blood pressure 121/49, respirations 15, pulse 74, temperature 97.4. HEENT: Head is normocephalic. NECK: Supple. HEART: Regular rate. LUNGS: Show diminished breath sounds at base. ABDOMEN: Soft, nontender to palpation. No rebound or guarding. EXTREMITIES: Negative for clubbing, cyanosis, no edema. DERMATOLOGIC: No rashes. The patient has a decubitus wound, no change. MUSCULOSKELETAL: No joint effusions. NEUROLOGIC: No change in exam. MEDICATIONS: The patient's medications have been reviewed. LABORATORY DATA: Shows white count 42.9, hemoglobin 8.6, hematocrit 27.5, platelet count 240. Sodi um 131, potassium 4.6, chloride 94, BUN 59, creatinine 1.75. ASSESSMENT AND PLAN: 1. Sepsis, etiology secondary to pneumonia and decubitus wound. Continue current antibiotic regime n. White count is fluctuating. We will follow up with infectious disease. Cultures have been revi ewed. 2. End-stage renal disease. We will continue dialysis. Plan for dialysis today for 3 hours, 2K ba th, calcium 2.5. 3. Hyponatremia secondary to end-stage renal disease. Continue free water restriction. 4. Abdominal ascites, secondary to right-sided heart failure and end-stage renal disease. Continue to monitor. Will defer to GI whether patient requires further paracentesis. 5. Pulmonary hypertension. Continue sildenafil. 6. Anemia. Continue to monitor hemoglobin and hematocrit levels. Continue with dialysis. 7. Seizure disorder. Continue Keppra. 8. Decubitus wound. Continue wound care. 9. Diabetes. Continue Accu-Cheks and sliding scale. 10. Dysphagia. Continue tube feeding. 11. Ventilator-dependent respiratory failure. Vent settings reviewed. ABG is reviewed. Continue to monitor. 12. Chronic encephalopathy, unchanged. 13. Atrial fibrillation, rate controlled. Continue medical management. 14. Status post fungal urinary tract infection. 15. History of cerebrovascular accident. 16. History of right-sided heart failure. 17. Gastrointestinal and deep venous thrombosis prophylaxis. Continue proton pump inhibitor and El iquis. Dictated By: RUDDY BUSTILLOS/ARNOLDO Conf#: [id number] [facility]#: [id number]
[2016-10-11] MEDS: SILDENAFIL 20 MG TAB GTB SCH ×3 (09:00→21:00)
[2016-10-11] MEDS: BUDESONIDE (NEB) 0.5MG/2ML AMP HHN SCH ×2 (09:02→20:50)
[2016-10-11] MEDS: APIXABAN 5 MG TABLET GTB SCH ×2 (09:12→21:07)
[2016-10-11] MEDS: LEVETIRACETAM IV 500 MG in DEXTROSE 5% 100 ML IVPB SCH ×2 (09:17→21:06)
[2016-10-11] MEDS: MUPIROCIN 2% 22 GM OINT TOP SCH ×2 (09:17→21:05)
[2016-10-11] MEDS: COLLAGENASE 30 GM TUBE TOP SCH (09:18)
[2016-10-11] MEDS: PRAMOXINE 1% 15 GM RECT FOAM PR SCH ×3 (09:19→21:05)
[2016-10-11 09:46] LABS: LYMPHOCYTES # 1.3 10^3/ul (0.8-2.9); MONOCYTE # 1.2 10^3/ul (0.3-0.9); MYELOCYTES # 0.1; NEUTROPHIL # 10.4 10^3/ul (1.6-7.5)
--- NOTE | 2016-10-11 14:28 | CONS ---
Date/Time of Note Date/Time of Note DATE: 10/11/16 TIME: 14:27 Consult Date/Type/Reason Admit Date/Time Sep 17, 2016 at 18:49 Type of Consultation: ID Subjective no events, no fevers, lying comfortably in bed Objective Vital Signs Date Time Temp Pulse Resp B/P Pulse Ox O2 Delivery O2 Flow Rate FiO2 10/11/16 13:20 89 18 96 50 10/11/16 11:20 97.7 119/55 10/08/16 04:35 Mechanical Ventilator Intake and Output 10/10/16 10/10/16 10/11/16 15:00 23:00 07:00 Intake Total 815 ml 800 ml Balance 815 ml 800 ml Results/Medications Result Diagram: 10/11/1625 10/11/16624 Results 24 hrs Laboratory Tests Test 10/10/16 17:34 10/11/16 00:18 10/11/16 05:52 10/11/16 06:25 Bedside Glucose 113 122 103 Anion Gap 11 Band Neutrophils % 12.0 H Basophils # Basophils % Blood Morphology Comment Blood Urea Nitrogen 59 H Calcium Level 8.1 L Carbon Dioxide Level 31 Chloride Level 94 L Creatinine 1.75 H Eosinophils # Eosinophils % Glucose Level 90 Hematocrit 27.5 L Hemoglobin 8.6 L Lymphocytes # 1.3 Lymphocytes % 9.0 L Magnesium Level 2.3 Mean Corpuscular Hemoglobin 30.8 Mean Corpuscular Hemoglobin Concent 31.1 L Mean Corpuscular Volume 99.0 Mean Platelet Volume 7.8 Monocytes # 1.2 H Monocytes % 8.0 Myelocytes # 0.1 Myelocytes % 1.0 H Neutrophils # 10.4 H Neutrophils % 70.0 Nucleated Red Blood Cells # Nucleated Red Blood Cells % Phosphorus Level 3.7 Platelet Count 240 Potassium Level 4.6 Red Blood Count 2.77 L Red Cell Distribution Width 19.8 H Sodium Level 131 L White Blood Count 14.9 H Test 10/11/16 12:02 Bedside Glucose 114 Medications Current Medications Levetiracetam/ Dextrose (Keppra Iv/D5W) 105 ml @ 420 mls/hr Q12 IVPB Last administered on 10/11/16at 09:17; Admin Dose 420 MLS/HR; Start 09/18/16 at 09:00 Collagenase (Santyl) 1 applic DAILY TOP Last administered on 10/11/16at 09:18; Admin Dose 1 APPLIC; Start 09/18/16 at 09:00 Acetaminophen (Tylenol Liquid) 650 mg Q4H PRN NGT PAIN AND OR ELEVATED TEMP Last administered on 09/29/16at 12:07; Admin Dose 650 MG; Start 09/18/16 at 08: 00 Bisacodyl (Dulcolax Supp) 10 mg DAILY PRN [place] CONSTIPATION; Start 09/18/16 at 08:00 Mupirocin (Bactroban) Apply to bilateral nares ... BID TOP Last administered on 10/11/16at 09:17; Admin Dose 1 APPLIC; Start 09/18/16 at 09:00 Mirtazapine (Remeron) 7.5 mg HS GTB Last administered on 10/10/16at 20:19; Admin Dose 7.5 MG; Start 09/18/16 at 21:00 Ondansetron HCl (Zofran Inj) 4 mg Q4H PRN IV NAUSEA AND/OR VOMITING; Start 08/24 at 08:00 Morphine Sulfate (morphine) 2 mg Q3H PRN IV PAIN LEVEL 6-10 Last administered on 09/28/16at 12:25; Admin Dose 2 MG; Start 09/18/16 at 08:00 Lorazepam (Ativan) 0.5 mg Q3H PRN IV ANXIETY; Start 09/18/16 at 08:00 Amikacin Sulfate (Amikacin Iv Per Pharmacy) PER PHARMACY DOSING NOTE XX ; Start 09/18/16 at 13:00 Vancomycin HCl (Vanco Iv Per Pharmacy) PER PHARMACY DOSING NOTE XX ; Start 08/24 at 13:00 IV Flush (NS 10 ml) 10 ml PRN PRN IV IV PROTOCOL Last administered on at 06:01; Admin Dose 10 ML; Start 09/18/16 at 13:00 Miscellaneous Information 1 ea NOTE XX ; Start 09/19/16 at 12:00 Glucose (Glutose) 15 gm Q15M PRN PO DECREASED GLUCOSE; Start 09/19/16 at 12:00 Glucose (Glutose) 22.5 gm Q15M PRN PO DECREASED GLUCOSE; Start 09/19/16 at 12: 00 Dextrose (D50w Syringe) 25 ml Q15M PRN IV DECREASED GLUCOSE; Start 09/19/16 at 12:00 Dextrose (D50w Syringe) 50 ml Q15M PRN IV DECREASED GLUCOSE; Start 09/19/16 at 12:00 Glucagon (Glucagen) 1 mg Q15M PRN IM DECREASED GLUCOSE; Start 09/19/16 at 12: 00 Glucose (Glutose) 15 gm Q15M PRN BUCCAL DECREASED GLUCOSE; Start 09/19/16 at 12:00 Lansoprazole (Prevacid) 30 mg DAILY@06 PO Last administered on 10/11/16at 05:47 ; Admin Dose 30 MG; Start 09/27/16 at 06:00 Apixaban (Eliquis) 2.5 mg BID GTB Last administered on 10/11/16at 09:12; Admin Dose 2.5 MG; Start 09/30/16 at 09:00 Metoclopramide HCl (Reglan) 5 mg Q6 IV Last administered on 10/11/16at 12:51; Admin Dose 5 MG; Start 09/30/16 at 12:00 Insulin Aspart (Novolog Insulin Pen) NOVOLOG *MILD* ALGORI... Q6 SC Last administered on 10/07/16at 12:20; Admin Dose 1 UNIT; Start 09/30/16 at 12:00 Metronidazole (Flagyl) 500 mg Q8 PO Last administered on 10/11/16at 05:48; Admin Dose 500 MG; Start 10/01/16 at 14:30 Sildenafil Citrate 20 mg 20 mg TID GTB Last administered on 10/10/16at 20:19; Admin Dose 20 MG; Start 10/08/16 at 10:45 Vancomycin HCl/ Sodium Chloride (Vancocin/NS) 250 ml @ 83.333 mls/ hr Q96H IVPB Last administered on 10/09/16at 14:23; Admin Dose 83.333 MLS/HR; Start 10/09/16 at 13:30 Pramoxine HCl (Proctofoam 1%) 1 applic TID [place] Last administered on 10/11/16at 09 :19; Admin Dose 1 APPLIC; Start 10/10/16 at 21:00 Assessment/Plan Chief Complaint/Hosp Course MICROBIOLOGY: Endotracheal aspirate growing multidrug resistant Pseudomonas. Blood cultures negative, wound culture of her sacrum growing MRSA. Urine culture growing Kelly glabrata. INDWELLING: trach, PEG, RIJ Perm-A-Cath, Left upper extremity PICC line placed on 09/18/2016. ANTIMICROBIALS: 1. Amikacin. 2. Vancomycin. 3. Flagyl PHYSICAL EXAMINATION: GENERAL: Fragile, chronically ill-appearing, elderly woman who is lying comfortably in bed. HEENT: Head atraumatic, normocephalic. Sclerae anicteric. Buccal mucosa dry. NECK: Supple. Tracheostomy present. CHEST: Rise symmetrical. Breath sounds diminished to bases. HEART: S1, S2. ABDOMEN: Soft, bowel tones present. EXTREMITIES: Without cyanosis. ASSESSMENT: 1. Ongoing sepsis, status post shock. 2. S/p healthcare-associated pneumonia with parapneumonic pleural effusion and sputum culture growing multi-drug resistant Pseudomonas aeruginosa. 3. Methicillin-resistant Staphylococcus aureus infected decubitus. 4. S/p kelly glabrata urinary tract infection. 5. Methicillin-resistant Staphylococcus aureus nares colonization. 6. End-stage renal disease, hemodialysis dependent. 7. History of cerebrovascular accident. 8. Ascites==> s/p paracentesis 09/24===> cx negative 9. Sacral decub, poss OM 10. ALLERGY TO PENICILLIN AND SULFA. PLAN: Clinically unchanged, no fevers, continue abx, topical Bactroban to nares , local wound care, HD per renal DW staff Problems: RAISSA ROA NP Oct 11, 2016 14:28
[2016-10-11] MEDS: AMIKACIN IVPB SCH (18:20)
[2016-10-11] MEDS: SOD CHLORIDE 0.9% IVPB SCH (18:20)
[2016-10-11] MEDS: EPOETIN 10000 UNITS/1 ML INJ (ESRD) SC SCH (18:30)
--- NOTE | 2016-10-11 18:43 | CONS ---
Date/Time of Note Date/Time of Note DATE: 10/11/16 TIME: 18:42 Consult Date/Type/Reason Admit Date/Time Sep 17, 2016 at 18:49 Type of Consultation: pulm Subjective No events on MV Objective Vital Signs Date Time Temp Pulse Resp B/P Pulse Ox O2 Delivery O2 Flow Rate FiO2 10/11/16 17:25 97 19 10/11/16 17:00 97 50 10/11/16 15:44 97.7 137/64 10/08/16 04:35 Mechanical Ventilator Intake and Output 10/10/16 10/10/16 10/11/16 15:00 23:00 07:00 Intake Total 815 ml 800 ml Balance 815 ml 800 ml NECK: Supple. No JVD or lymphadenopathy. CARDIAC: S1, S2, no added sounds or murmurs. CHEST: Diminished air entry bilaterally. ABDOMEN: Soft, nontender. No guarding or rebound. EXTREMITIES: + tr edema Results/Medications Result Diagram: 10/11/16 0625 10/11/16 0625 Results 24 hrs Laboratory Tests Test 10/11/16 00:18 10/11/16 05:52 10/11/16 06:25 10/11/16 12:02 Bedside Glucose 122 103 114 Anion Gap 11 Band Neutrophils % 12.0 H Basophils # Basophils % Blood Morphology Comment Blood Urea Nitrogen 59 H Calcium Level 8.1 L Carbon Dioxide Level 31 Chloride Level 94 L Creatinine 1.75 H Eosinophils # Eosinophils % Glucose Level 90 Hematocrit 27.5 L Hemoglobin 8.6 L Lymphocytes # 1.3 Lymphocytes % 9.0 L Magnesium Level 2.3 Mean Corpuscular Hemoglobin 30.8 Mean Corpuscular Hemoglobin Concent 31.1 L Mean Corpuscular Volume 99.0 Mean Platelet Volume 7.8 Monocytes # 1.2 H Monocytes % 8.0 Myelocytes # 0.1 Myelocytes % 1.0 H Neutrophils # 10.4 H Neutrophils % 70.0 Nucleated Red Blood Cells # Nucleated Red Blood Cells % Phosphorus Level 3.7 Platelet Count 240 Potassium Level 4.6 Red Blood Count 2.77 L Red Cell Distribution Width 19.8 H Sodium Level 131 L White Blood Count 14.9 H Test 10/11/16 18:14 Bedside Glucose 112 Medications Current Medications Levetiracetam/ Dextrose (Keppra Iv/D5W) 105 ml @ 420 mls/hr Q12 IVPB Last administered on 10/11/16at 09:17; Admin Dose 420 MLS/HR; Start 09/18/16 at 09:00 Collagenase (Santyl) 1 applic DAILY TOP Last administered on 10/11/16at 09:18; Admin Dose 1 APPLIC; Start 09/18/16 at 09:00 Acetaminophen (Tylenol Liquid) 650 mg Q4H PRN NGT PAIN AND OR ELEVATED TEMP Last administered on 09/29/16at 12:07; Admin Dose 650 MG; Start 09/18/16 at 08: 00 Bisacodyl (Dulcolax Supp) 10 mg DAILY PRN [place] CONSTIPATION; Start 09/18/16 at 08:00 Mupirocin (Bactroban) Apply to bilateral nares ... BID TOP Last administered on 10/11/16at 09:17; Admin Dose 1 APPLIC; Start 09/18/16 at 09:00 Mirtazapine (Remeron) 7.5 mg HS GTB Last administered on 10/10/16at 20:19; Admin Dose 7.5 MG; Start 09/18/16 at 21:00 Ondansetron HCl (Zofran Inj) 4 mg Q4H PRN IV NAUSEA AND/OR VOMITING; Start 08/24 at 08:00 Morphine Sulfate (morphine) 2 mg Q3H PRN IV PAIN LEVEL 6-10 Last administered on 09/28/16at 12:25; Admin Dose 2 MG; Start 09/18/16 at 08:00 Lorazepam (Ativan) 0.5 mg Q3H PRN IV ANXIETY; Start 09/18/16 at 08:00 Amikacin Sulfate (Amikacin Iv Per Pharmacy) PER PHARMACY DOSING NOTE XX ; Start 09/18/16 at 13:00 Vancomycin HCl (Vanco Iv Per Pharmacy) PER PHARMACY DOSING NOTE XX ; Start 08/24 at 13:00 IV Flush (NS 10 ml) 10 ml PRN PRN IV IV PROTOCOL Last administered on at 06:01; Admin Dose 10 ML; Start 09/18/16 at 13:00 Miscellaneous Information 1 ea NOTE XX ; Start 09/19/16 at 12:00 Glucose (Glutose) 15 gm Q15M PRN PO DECREASED GLUCOSE; Start 09/19/16 at 12:00 Glucose (Glutose) 22.5 gm Q15M PRN PO DECREASED GLUCOSE; Start 09/19/16 at 12: 00 Dextrose (D50w Syringe) 25 ml Q15M PRN IV DECREASED GLUCOSE; Start 09/19/16 at 12:00 Dextrose (D50w Syringe) 50 ml Q15M PRN IV DECREASED GLUCOSE; Start 09/19/16 at 12:00 Glucagon (Glucagen) 1 mg Q15M PRN IM DECREASED GLUCOSE; Start 09/19/16 at 12: 00 Glucose (Glutose) 15 gm Q15M PRN BUCCAL DECREASED GLUCOSE; Start 09/19/16 at 12:00 Lansoprazole (Prevacid) 30 mg DAILY@06 PO Last administered on 10/11/16at 05:47 ; Admin Dose 30 MG; Start 09/27/16 at 06:00 Apixaban (Eliquis) 2.5 mg BID GTB Last administered on 10/11/16at 09:12; Admin Dose 2.5 MG; Start 09/30/16 at 09:00 Metoclopramide HCl (Reglan) 5 mg Q6 IV Last administered on 10/11/16at 18:19; Admin Dose 5 MG; Start 09/30/16 at 12:00 Insulin Aspart (Novolog Insulin Pen) NOVOLOG *MILD* ALGORI... Q6 SC Last administered on 10/07/16at 12:20; Admin Dose 1 UNIT; Start 09/30/16 at 12:00 Metronidazole (Flagyl) 500 mg Q8 PO Last administered on 10/11/16at 15:54; Admin Dose 500 MG; Start 10/01/16 at 14:30 Sildenafil Citrate 20 mg 20 mg TID GTB Last administered on 10/10/16at 20:19; Admin Dose 20 MG; Start 10/08/16 at 10:45 Vancomycin HCl/ Sodium Chloride (Vancocin/NS) 250 ml @ 83.333 mls/ hr Q96H IVPB Last administered on 10/09/16at 14:23; Admin Dose 83.333 MLS/HR; Start 10/09/16 at 13:30 Pramoxine HCl (Proctofoam 1%) 1 applic TID OK Last administered on 10/11/16at 15 :52; Admin Dose 1 APPLIC; Start 10/10/16 at 21:00 Assessment/Plan Additional Assessment/Plan IMPRESSION: 1. Ventilatory-dependent respiratory failure. 2. Status post septic shock. 3. Decubitus ulcers and polymicrobial sepsis. Persistent leukocytosis 4. Hypernatremia. 5. End-stage renal failure on hemodialysis. 6. Underlying seizure disorder. PLAN: 1. Vent 2. BD's/CPT 3. am labs 4. TFs WALT JUAREZ MD Oct 11, 2016 18:43
[2016-10-11] MEDS: MIRTAZAPINE 15 MG TAB GTB SCH (21:07)
[2016-10-12] VITALS (23 sets, daily range): BP systolic 99–119; BP diastolic 42–57; PULSE 80–94; RESP 14–20
[2016-10-12] MEDS: METOCLOPRAMIDE 10 MG INJ IV SCH ×5 (00:38→23:36)
[2016-10-12] MEDS: IPRATROPIUM (HFA) 12.9 GM INHALER INH SCH ×6 (01:09→20:29)
[2016-10-12] MEDS: LEVALBUTEROL (HFA) 15 GM INHALER INH SCH ×6 (01:09→20:29)
[2016-10-12] MEDS: metroNIDAZOLE 500 MG TAB PO SCH ×3 (05:48→21:41)
[2016-10-12] MEDS: LANSOPRAZOLE 30 MG CAP PO SCH (05:48)
[2016-10-12] MEDS: INSULIN ASPART [NOVOLOG] 3 ML PEN SC SCH ×2 (05:50)
[2016-10-12 06:17] LABS: BASOPHILS % 0.1 % (0.0-2.0); EOSINOPHILS % 0.3 % (0.0-7.0); HEMATOCRIT 26.6 % (37.0-47.0); HEMOGLOBIN 8.4 g/dl (12.0-16.0); LYMPHOCYTES # 1.1 10^3/ul (0.8-2.9); LYMPHOCYTES % 9.4 % (15.0-51.0); MEAN CORPUSCULAR HEMOGLOBIN 30.8 pg (29.0-33.0); MEAN CORPUSCULAR HGB CONC 31.5 g/dl (32.0-37.0); MEAN CORPUSCULAR VOLUME 97.8 fl (82.0-101.0); MEAN PLATELET VOLUME 7.5 fl (7.4-10.4); MONOCYTE # 0.7 10^3/ul (0.3-0.9); MONOCYTES % 5.6 % (0.0-11.0); NEUTROPHIL # 10.2 10^3/ul (1.6-7.5); NEUTROPHILS % 84.6 % (39.0-77.0); PLATELET COUNT 226 10^3/UL (140-440); RED BLOOD COUNT 2.72 10^6/ul (4.20-5.40); RED CELL DISTRIBUTION WIDTH 21.3 % (11.5-14.5); UNCORRECTED WBC 12.1 10^3/ul (4.8-10.8); WHITE BLOOD COUNT 12.1 10^3/ul (4.8-10.8)
[2016-10-12 06:28] LABS: POTASSIUM 4.1 mmol/L (3.5-5.1)
[2016-10-12 06:30] LABS: CONDITION 1; LH ANALYZER COMMENTS 1; SUSPECT 1
[2016-10-12 06:31] LABS: CREATININE 1.33 mg/dl (0.44-1.00)
[2016-10-12 06:32] LABS: CALCIUM 7.8 mg/dl (8.4-10.2); MAGNESIUM 2.1 mg/dl (1.7-2.5); PHOSPHORUS 2.4 mg/dl (2.5-4.9)
[2016-10-12] MEDS: BUDESONIDE (NEB) 0.5MG/2ML AMP HHN SCH ×2 (08:59→20:29)
[2016-10-12] MEDS: SILDENAFIL 20 MG TAB GTB SCH ×3 (09:00→21:00)
[2016-10-12] MEDS: APIXABAN 5 MG TABLET GTB SCH (09:00)
[2016-10-12] MEDS: LEVETIRACETAM IV 500 MG in DEXTROSE 5% 100 ML IVPB SCH ×2 (09:17→21:42)
[2016-10-12] MEDS: PRAMOXINE 1% 15 GM RECT FOAM PR SCH ×3 (09:18→21:43)
[2016-10-12] MEDS: COLLAGENASE 30 GM TUBE TOP SCH (09:18)
[2016-10-12] MEDS: MUPIROCIN 2% 22 GM OINT TOP SCH ×2 (09:20→21:42)
[2016-10-12 10:18] LABS: INR 2.15; PROTIME 24.2 Sec (12.2-14.2); PT RATIO 1.9
--- NOTE | 2016-10-12 10:29 | PN ---
DATE: 10/12/2016 SUBJECTIVE: The patient is stable, no acute events overnight. No fevers, chills, nausea, vomiting or shortness of breath. OBJECTIVE: VITAL SIGNS: Blood pressure is 100/56, respirations 20, pulse 96, temperature 97.9 I's AND O'S: The patient had 1200 in and 2.4 L removed with dialysis. HEENT: Head is normocephalic. NECK: Shows trach. HEART: Irregular rate. LUNGS: Show diminished breath sounds at the base. ABDOMEN: Soft, nontender to palpation. No rebound or guarding. EXTREMITIES: Negative for clubbing, cyanosis. No edema. DERMATOLOGIC: No rashes. MUSCULOSKELETAL: No joint effusions. NEUROLOGIC: No change in exam. MEDICATIONS: Reviewed. LABORATORY DATA: Shows sodium 132, potassium 4.1, chloride 95, BUN 43, creatinine 1.33, phosphorus 2.4. White count 12.1, hemoglobin 8.4, hematocrit 26.6. Platelet count is 226. ASSESSMENT AND PLAN: 1. Sepsis secondary to pneumonia, decubitus wound. Continue current antibiotic regimen. White cou nt is slowly improving. 2. End-stage renal disease. The patient had hemodialysis yesterday, tolerated well, anticipate monae lysis tomorrow. 3. Hyponatremia secondary to end-stage renal disease, sodium levels are improving. Continue free w ater restriction. 4. Abdominal ascites secondary to right-sided heart failure and end-stage renal disease. Continue to monitor. We will discuss with GI whether to proceed with further paracentesis. 5. Pulmonary hypertension. Continue sildenafil. 6. Anemia. Continue to monitor hemoglobin and hematocrit levels. 7. Seizure disorder. Continue Keppra. 8. Decubitus wound. Continue wound care. 9. Diabetes. Continue Accu-Cheks and insulin sliding scale. 10. Dysphagia. Continue tube feeding. 11. Ventilatory-dependent respiratory failure. Vent settings have been reviewed. Arterial blood g ases reviewed. Continue to monitor. 12. Chronic encephalopathy, unchanged. 13. Atrial fibrillation, rate controlled. Continue medical management. 14. Gastrointestinal and deep venous thrombosis prophylaxis. Continue proton pump inhibitor and El iquis. 15. History of cerebrovascular accident. 16. Status post fungal urinary tract infection. Dictated By: RUDDY BUSTILLOS/ARNOLDO Conf#: [id number] DID#: [id number]
--- NOTE | 2016-10-12 10:57 | CONS ---
Date/Time of Note Date/Time of Note DATE: 10/12/16 TIME: 10:56 Assessment/Plan Assessment/Plan Additional Assessment/Plan Chief Complaint/Hosp Course ASSESSMENT: 1. Renal failure on dialysis. 2. Vent dependent respiratory failure. 3. Chronic obstructive pulmonary disease. 4. Atrial fibrillation. 5. Ascites, successful paracentesis done. 6. Dysphagia 7. G-tube clean,no leakage,tolerating feeding 8. Anemia: stable, likely from anemia of chronic disease 9. Status post septic shock. 10. Diabetes mellitus. 11. Decubitus ulcer. 12. Congestive heart failure. 13. Seizure disorder. 14. pneumonia,s/p sepsis 15.pulmonary hypertension 16 persistent leucocytosis Plan continue antibiotics per ID Reglan for gastroparesis Bactroban to g tube site. Routine G-tube site care no dressing around g tube site.which is clean Consultation Date/Type/Reason Admit Date/Time Sep 17, 2016 at 18:49 Type of Consultation: pulm 24 HR Interval Summary Constitutional: improved, no complaints Exam/Review of Systems Vital Signs Vitals Vital Signs Date Time Temp Pulse Resp B/P Pulse Ox O2 Delivery O2 Flow Rate FiO2 10/12/16 09:09 85 17 98 45 10/12/16 08:19 97.9 100/57 Intake and Output 10/11/16 10/11/16 10/12/16 15:00 23:00 07:00 Intake Total 1250 ml Output Total 2400 ml Balance -1150 ml Exam Constitutional: alert, oriented, well developed Psych: nl mood/affect, no complaints Head: atraumatic, normocephalic Eyes: EOMI, PERRL, nl conjunctiva, nl lids, nl sclera ENMT: nl external ears & nose, nl lips & teeth, nl nasal mucosa & septum Neck: non-tender, supple Respiratory: clear to auscultation, normal air movement Cardiovascular: nl pulses, regular rate and rhythm Gastrointestinal: nl liver, spleen, non-tender, soft Musculoskeletal: nl extremities to inspection, nl gait and stance Extremities: normal pulses Neurological: [employer] II-XII intact, nl mental status, nl speech, nl strength Skin: nl turgor, No rash or lesions Lymph: nl lymph nodes Results Result Diagram: 10/12/16 0545 10/12/16 0545 Results 24 hrs Laboratory Tests Test 10/11/16 12:02 10/11/16 18:14 10/12/16 00:41 10/12/16 05:45 Bedside Glucose 114 112 101 Anion Gap 10 Basophils # 0.0 Basophils % 0.1 Blood Morphology Comment Blood Urea Nitrogen 43 #H Calcium Level 7.8 L Carbon Dioxide Level 31 Chloride Level 95 L Creatinine 1.33 H Eosinophils # 0.0 Eosinophils % 0.3 Glucose Level 107 Hematocrit 26.6 L Hemoglobin 8.4 L Lymphocytes # 1.1 Lymphocytes % 9.4 L Magnesium Level 2.1 Mean Corpuscular Hemoglobin 30.8 Mean Corpuscular Hemoglobin Concent 31.5 L Mean Corpuscular Volume 97.8 Mean Platelet Volume 7.5 Monocytes # 0.7 Monocytes % 5.6 Neutrophils # 10.2 H Neutrophils % 84.6 H Nucleated Red Blood Cells # 0.0 Nucleated Red Blood Cells % 0.0 Phosphorus Level 2.4 #L Platelet Count 226 Potassium Level 4.1 Red Blood Count 2.72 L Red Cell Distribution Width 21.3 H Sodium Level 132 L White Blood Count 12.1 H Test 10/12/16 05:48 10/12/16 09:35 Bedside Glucose 120 INR International Normalized Ratio 2.15 Prothrombin Time 24.2 H Prothrombin Time Ratio 1.9 Medications Medications Current Medications Levetiracetam/ Dextrose (Keppra Iv/D5W) 105 ml @ 420 mls/hr Q12 IVPB Last administered on 10/12/16at 09:17; Admin Dose 420 MLS/HR; Start 09/18/16 at 09:00 Collagenase (Santyl) 1 applic DAILY TOP Last administered on 10/12/16at 09:18; Admin Dose 1 APPLIC; Start 09/18/16 at 09:00 Acetaminophen (Tylenol Liquid) 650 mg Q4H PRN NGT PAIN AND OR ELEVATED TEMP Last administered on 09/29/16at 12:07; Admin Dose 650 MG; Start 09/18/16 at 08: 00 Bisacodyl (Dulcolax Supp) 10 mg DAILY PRN [place] CONSTIPATION; Start 09/18/16 at 08:00 Mupirocin (Bactroban) Apply to bilateral nares ... BID TOP Last administered on 10/12/16at 09:20; Admin Dose 1 APPLIC; Start 09/18/16 at 09:00 Mirtazapine (Remeron) 7.5 mg HS GTB Last administered on 10/11/16at 21:07; Admin Dose 7.5 MG; Start 09/18/16 at 21:00 Ondansetron HCl (Zofran Inj) 4 mg Q4H PRN IV NAUSEA AND/OR VOMITING; Start 08/24 at 08:00 Morphine Sulfate (morphine) 2 mg Q3H PRN IV PAIN LEVEL 6-10 Last administered on 09/28/16at 12:25; Admin Dose 2 MG; Start 09/18/16 at 08:00 Lorazepam (Ativan) 0.5 mg Q3H PRN IV ANXIETY; Start 09/18/16 at 08:00 Amikacin Sulfate (Amikacin Iv Per Pharmacy) PER PHARMACY DOSING NOTE XX ; Start 09/18/16 at 13:00 Vancomycin HCl (Vanco Iv Per Pharmacy) PER PHARMACY DOSING NOTE XX ; Start 08/24 at 13:00 IV Flush (NS 10 ml) 10 ml PRN PRN IV IV PROTOCOL Last administered on at 06:01; Admin Dose 10 ML; Start 09/18/16 at 13:00 Miscellaneous Information 1 ea NOTE XX ; Start 09/19/16 at 12:00 Glucose (Glutose) 15 gm Q15M PRN PO DECREASED GLUCOSE; Start 09/19/16 at 12:00 Glucose (Glutose) 22.5 gm Q15M PRN PO DECREASED GLUCOSE; Start 09/19/16 at 12: 00 Dextrose (D50w Syringe) 25 ml Q15M PRN IV DECREASED GLUCOSE; Start 09/19/16 at 12:00 Dextrose (D50w Syringe) 50 ml Q15M PRN IV DECREASED GLUCOSE; Start 09/19/16 at 12:00 Glucagon (Glucagen) 1 mg Q15M PRN IM DECREASED GLUCOSE; Start 09/19/16 at 12: 00 Glucose (Glutose) 15 gm Q15M PRN BUCCAL DECREASED GLUCOSE; Start 09/19/16 at 12:00 Lansoprazole (Prevacid) 30 mg DAILY@06 PO Last administered on 10/12/16at 05:48 ; Admin Dose 30 MG; Start 09/27/16 at 06:00 Apixaban (Eliquis) 2.5 mg BID GTB Last administered on 10/11/16at 21:07; Admin Dose 2.5 MG; Start 09/30/16 at 09:00 Metoclopramide HCl (Reglan) 5 mg Q6 IV Last administered on 10/12/16at 05:49; Admin Dose 5 MG; Start 09/30/16 at 12:00 Insulin Aspart (Novolog Insulin Pen) NOVOLOG *MILD* ALGORI... Q6 SC Last administered on 10/07/16at 12:20; Admin Dose 1 UNIT; Start 09/30/16 at 12:00 Metronidazole (Flagyl) 500 mg Q8 PO Last administered on 10/12/16at 05:48; Admin Dose 500 MG; Start 10/01/16 at 14:30 Sildenafil Citrate 20 mg 20 mg TID GTB Last administered on 10/10/16at 20:19; Admin Dose 20 MG; Start 10/08/16 at 10:45 Vancomycin HCl/ Sodium Chloride (Vancocin/NS) 250 ml @ 83.333 mls/ hr Q96H IVPB Last administered on 10/09/16at 14:23; Admin Dose 83.333 MLS/HR; Start 10/09/16 at 13:30 Pramoxine HCl (Proctofoam 1%) 1 applic TID NM Last administered on 10/12/16at 09 :18; Admin Dose 1 APPLIC; Start 10/10/16 at 21:00 ANNABEL CISSE MD Oct 12, 2016 10:57
--- NOTE | 2016-10-12 12:14 | CONS ---
Date/Time of Note Date/Time of Note DATE: 10/12/16 TIME: 12:11 Assessment/Plan Assessment/Plan Chief Complaint/Hosp Course ID PROGRESS NOTE 24H INTERVAL SUMMARY * noncommunicative/Trach/Peg * no fevers recorded , WBC down MICROBIOLOGY: * Endotracheal aspirate growing multidrug resistant Pseudomonas. * Blood cultures negative * Wound culture of her sacrum growing MRSA. * Urine culture growing Kelly glabrata. INDWELLING: trach, PEG, RIJ Perm-A-Cath, Left upper extremity PICC line placed on 09/18/2016. ANTIMICROBIALS: 1. Amikacin. 2. Vancomycin. 3. Flagy PHYSICAL EXAMINATION: GENERAL: Looks comfortable resting on Vent / NAD HEENT: Unremarkable NECK: Trach clean CHEST: Rise symmetrical,=> Vented course BS HEART: Pulse RRR ABDOMEN: Soft, benign - Peg EXTREMITIES: Warm, no edema SKIN: STG IV DECUB -> See photos ID ASSESSMENT 81 yo H F w/PMHx Afib, CVA, VDRF-Trach since OCT 2015, Peg, COPD, ESRD admit with: 1. s/p Sepsis w/shock => hypotension on pressors on admission RESOLVED -> Likely GNR from GNR HCAP + DECUB + ?bladder sepsis - anuric * Leukocytosis on admit * Low grade temps on admit 99.7 * Encephalopathy 2/2 #1 2. GNR HCAP = (+PSAR sensitive to Amikacin 3. Right pleural effusion, possibly underlying healthcare-associated pneumonia. 3. Acute decompensated heart failure, right-sided heart failure. Continue ultrafiltration dialysis. 4. Dysfunctional G-tube with NG tube in place. 5. ESRD-> HD w/PermCath 6. Ascites==> s/p paracentesis 09/24===> cx negative 7. STG IV coccygeal decub present on admission * Wound Cx(+)MRSA 8. (+)Glabrata UTI -> Urostasis 2nd anuric 9. Oral candidiasis ( + )MRSA Nares ->Bactroban INVASIVES: PICC (09/18), Trach, Peg, NGT, PermCath ABX ALLERGY: PCN/SULFA CURRENT ABX: ABX => Vanco IV + Amikacin + Flagyl ID RECOMMENDATIONS Slow progress - continue current ABX Further recs per ID team follow up and clinical course . . Problems: Consultation Date/Type/Reason Admit Date/Time Sep 17, 2016 at 18:49 Type of Consultation: ID Exam/Review of Systems Vital Signs Vitals Vital Signs Date Time Temp Pulse Resp B/P Pulse Ox O2 Delivery O2 Flow Rate FiO2 10/12/16 11:20 101 14 97 45 10/12/16 08:19 97.9 100/57 Intake and Output 10/11/16 10/11/16 10/12/16 15:00 23:00 07:00 Intake Total 1250 ml Output Total 2400 ml Balance -1150 ml Results Result Diagram: 10/12/16 0545 10/12/16 0545 Results 24 hrs Laboratory Tests Test 10/11/16 18:14 10/12/16 00:41 10/12/16 05:45 10/12/16 05:48 Bedside Glucose 112 101 120 Anion Gap 10 Basophils # 0.0 Basophils % 0.1 Blood Morphology Comment Blood Urea Nitrogen 43 #H Calcium Level 7.8 L Carbon Dioxide Level 31 Chloride Level 95 L Creatinine 1.33 H Eosinophils # 0.0 Eosinophils % 0.3 Glucose Level 107 Hematocrit 26.6 L Hemoglobin 8.4 L Lymphocytes # 1.1 Lymphocytes % 9.4 L Magnesium Level 2.1 Mean Corpuscular Hemoglobin 30.8 Mean Corpuscular Hemoglobin Concent 31.5 L Mean Corpuscular Volume 97.8 Mean Platelet Volume 7.5 Monocytes # 0.7 Monocytes % 5.6 Neutrophils # 10.2 H Neutrophils % 84.6 H Nucleated Red Blood Cells # 0.0 Nucleated Red Blood Cells % 0.0 Phosphorus Level 2.4 #L Platelet Count 226 Potassium Level 4.1 Red Blood Count 2.72 L Red Cell Distribution Width 21.3 H Sodium Level 132 L White Blood Count 12.1 H Test 10/12/16 09:35 INR International Normalized Ratio 2.15 Prothrombin Time 24.2 H Prothrombin Time Ratio 1.9 Medications Medications Current Medications Levetiracetam/ Dextrose (Keppra Iv/D5W) 105 ml @ 420 mls/hr Q12 IVPB Last administered on 10/12/16at 09:17; Admin Dose 420 MLS/HR; Start 09/18/16 at 09:00 Collagenase (Santyl) 1 applic DAILY TOP Last administered on 10/12/16at 09:18; Admin Dose 1 APPLIC; Start 09/18/16 at 09:00 Acetaminophen (Tylenol Liquid) 650 mg Q4H PRN NGT PAIN AND OR ELEVATED TEMP Last administered on 09/29/16at 12:07; Admin Dose 650 MG; Start 09/18/16 at 08: 00 Bisacodyl (Dulcolax Supp) 10 mg DAILY PRN NM CONSTIPATION; Start 09/18/16 at 08:00 Mupirocin (Bactroban) Apply to bilateral nares ... BID TOP Last administered on 10/12/16at 09:20; Admin Dose 1 APPLIC; Start 09/18/16 at 09:00 Mirtazapine (Remeron) 7.5 mg HS GTB Last administered on 10/11/16at 21:07; Admin Dose 7.5 MG; Start 09/18/16 at 21:00 Ondansetron HCl (Zofran Inj) 4 mg Q4H PRN IV NAUSEA AND/OR VOMITING; Start 08/24 at 08:00 Morphine Sulfate (morphine) 2 mg Q3H PRN IV PAIN LEVEL 6-10 Last administered on 09/28/16at 12:25; Admin Dose 2 MG; Start 09/18/16 at 08:00 Lorazepam (Ativan) 0.5 mg Q3H PRN IV ANXIETY; Start 09/18/16 at 08:00 Amikacin Sulfate (Amikacin Iv Per Pharmacy) PER PHARMACY DOSING NOTE XX ; Start 09/18/16 at 13:00 Vancomycin HCl (Vanco Iv Per Pharmacy) PER PHARMACY DOSING NOTE XX ; Start 08/24 at 13:00 IV Flush (NS 10 ml) 10 ml PRN PRN IV IV PROTOCOL Last administered on at 06:01; Admin Dose 10 ML; Start 09/18/16 at 13:00 Miscellaneous Information 1 ea NOTE XX ; Start 09/19/16 at 12:00 Glucose (Glutose) 15 gm Q15M PRN PO DECREASED GLUCOSE; Start 09/19/16 at 12:00 Glucose (Glutose) 22.5 gm Q15M PRN PO DECREASED GLUCOSE; Start 09/19/16 at 12: 00 Dextrose (D50w Syringe) 25 ml Q15M PRN IV DECREASED GLUCOSE; Start 09/19/16 at 12:00 Dextrose (D50w Syringe) 50 ml Q15M PRN IV DECREASED GLUCOSE; Start 09/19/16 at 12:00 Glucagon (Glucagen) 1 mg Q15M PRN IM DECREASED GLUCOSE; Start 09/19/16 at 12: 00 Glucose (Glutose) 15 gm Q15M PRN BUCCAL DECREASED GLUCOSE; Start 09/19/16 at 12:00 Lansoprazole (Prevacid) 30 mg DAILY@06 PO Last administered on 10/12/16 05:48 ; Admin Dose 30 MG; Start 09/27/16 at 06:00 Apixaban (Eliquis) 2.5 mg BID GTB Last administered on 10/11/16at 21:07; Admin Dose 2.5 MG; Start 09/30/16 at 09:00 Metoclopramide HCl (Reglan) 5 mg Q6 IV Last administered on 10/12/16at 05:49; Admin Dose 5 MG; Start 09/30/16 at 12:00 Metronidazole (Flagyl) 500 mg Q8 PO Last administered on 10/12/16at 05:48; Admin Dose 500 MG; Start 10/01/16 at 14:30 Sildenafil Citrate 20 mg 20 mg TID GTB Last administered on 10/10/16at 20:19; Admin Dose 20 MG; Start 10/08/16 at 10:45 Vancomycin HCl/ Sodium Chloride (Vancocin/NS) 250 ml @ 83.333 mls/ hr Q96H IVPB Last administered on 10/09/16at 14:23; Admin Dose 83.333 MLS/HR; Start 10/09/16 at 13:30 Pramoxine HCl (Proctofoam 1%) 1 applic TID NM Last administered on 10/12/16 09 :18; Admin Dose 1 APPLIC; Start 10/10/16 at 21:00 JOEY RODRIGUEZ NP Oct 12, 2016 12:14
--- NOTE | 2016-10-12 19:21 | CONS ---
Date/Time of Note Date/Time of Note DATE: 10/12/16 TIME: 19:20 Consult Date/Type/Reason Admit Date/Time Sep 17, 2016 at 18:49 Type of Consultation: Pulm Subjective No events on MV Objective Vital Signs Date Time Temp Pulse Resp B/P Pulse Ox O2 Delivery O2 Flow Rate FiO2 10/12/16 17:43 89 15 98 45 10/12/16 16:14 99.0 99/47 Intake and Output 10/11/16 10/11/16 10/12/16 15:00 23:00 07:00 Intake Total 1250 ml Output Total 2400 ml Balance -1150 ml NECK: Supple. No JVD or lymphadenopathy. CARDIAC: S1, S2, no added sounds or murmurs. CHEST: Diminished air entry bilaterally. ABDOMEN: Soft, nontender. No guarding or rebound. EXTREMITIES: + tr edema Results/Medications Result Diagram: 10/12/16 0545 10/12/16 0545 Results 24 hrs Laboratory Tests Test 10/12/16 00:41 10/12/16 05:45 10/12/16 05:48 10/12/16 09:35 Bedside Glucose 101 120 Anion Gap 10 Basophils # 0.0 Basophils % 0.1 Blood Morphology Comment Blood Urea Nitrogen 43 #H Calcium Level 7.8 L Carbon Dioxide Level 31 Chloride Level 95 L Creatinine 1.33 H Eosinophils # 0.0 Eosinophils % 0.3 Glucose Level 107 Hematocrit 26.6 L Hemoglobin 8.4 L Lymphocytes # 1.1 Lymphocytes % 9.4 L Magnesium Level 2.1 Mean Corpuscular Hemoglobin 30.8 Mean Corpuscular Hemoglobin Concent 31.5 L Mean Corpuscular Volume 97.8 Mean Platelet Volume 7.5 Monocytes # 0.7 Monocytes % 5.6 Neutrophils # 10.2 H Neutrophils % 84.6 H Nucleated Red Blood Cells # 0.0 Nucleated Red Blood Cells % 0.0 Phosphorus Level 2.4 #L Platelet Count 226 Potassium Level 4.1 Red Blood Count 2.72 L Red Cell Distribution Width 21.3 H Sodium Level 132 L White Blood Count 12.1 H INR International Normalized Ratio 2.15 Prothrombin Time 24.2 H Prothrombin Time Ratio 1.9 Test 10/12/16 12:27 Bedside Glucose 74 Medications Current Medications Levetiracetam/ Dextrose (Keppra Iv/D5W) 105 ml @ 420 mls/hr Q12 IVPB Last administered on 10/12/16at 09:17; Admin Dose 420 MLS/HR; Start 09/18/16 at 09:00 Collagenase (Santyl) 1 applic DAILY TOP Last administered on 10/12/16at 09:18; Admin Dose 1 APPLIC; Start 09/18/16 at 09:00 Acetaminophen (Tylenol Liquid) 650 mg Q4H PRN NGT PAIN AND OR ELEVATED TEMP Last administered on 09/29/16at 12:07; Admin Dose 650 MG; Start 09/18/16 at 08: 00 Bisacodyl (Dulcolax Supp) 10 mg DAILY PRN [place] CONSTIPATION; Start 09/18/16 at 08:00 Mupirocin (Bactroban) Apply to bilateral nares ... BID TOP Last administered on 10/12/16at 09:20; Admin Dose 1 APPLIC; Start 09/18/16 at 09:00 Mirtazapine (Remeron) 7.5 mg HS GTB Last administered on 10/11/16at 21:07; Admin Dose 7.5 MG; Start 09/18/16 at 21:00 Ondansetron HCl (Zofran Inj) 4 mg Q4H PRN IV NAUSEA AND/OR VOMITING; Start 08/24 at 08:00 Morphine Sulfate (morphine) 2 mg Q3H PRN IV PAIN LEVEL 6-10 Last administered on 09/28/16at 12:25; Admin Dose 2 MG; Start 09/18/16 at 08:00 Lorazepam (Ativan) 0.5 mg Q3H PRN IV ANXIETY; Start 09/18/16 at 08:00 Amikacin Sulfate (Amikacin Iv Per Pharmacy) PER PHARMACY DOSING NOTE XX ; Start 09/18/16 at 13:00 Vancomycin HCl (Vanco Iv Per Pharmacy) PER PHARMACY DOSING NOTE XX ; Start 08/24 at 13:00 IV Flush (NS 10 ml) 10 ml PRN PRN IV IV PROTOCOL Last administered on at 06:01; Admin Dose 10 ML; Start 09/18/16 at 13:00 Miscellaneous Information 1 ea NOTE XX ; Start 09/19/16 at 12:00 Glucose (Glutose) 15 gm Q15M PRN PO DECREASED GLUCOSE; Start 09/19/16 at 12:00 Glucose (Glutose) 22.5 gm Q15M PRN PO DECREASED GLUCOSE; Start 09/19/16 at 12: 00 Dextrose (D50w Syringe) 25 ml Q15M PRN IV DECREASED GLUCOSE; Start 09/19/16 at 12:00 Dextrose (D50w Syringe) 50 ml Q15M PRN IV DECREASED GLUCOSE; Start 09/19/16 at 12:00 Glucagon (Glucagen) 1 mg Q15M PRN IM DECREASED GLUCOSE; Start 09/19/16 at 12: 00 Glucose (Glutose) 15 gm Q15M PRN BUCCAL DECREASED GLUCOSE; Start 09/19/16 at 12:00 Lansoprazole (Prevacid) 30 mg DAILY@06 PO Last administered on 10/12/16 05:48 ; Admin Dose 30 MG; Start 09/27/16 at 06:00 Apixaban (Eliquis) 2.5 mg BID GTB Last administered on 10/11/16 21:07; Admin Dose 2.5 MG; Start 09/30/16 at 09:00; Status Future Hold Metoclopramide HCl (Reglan) 5 mg Q6 IV Last administered on 10/12/16at 16:59; Admin Dose 5 MG; Start 09/30/16 at 12:00 Metronidazole (Flagyl) 500 mg Q8 PO Last administered on 10/12/16 16:59; Admin Dose 500 MG; Start 10/01/16 at 14:30 Sildenafil Citrate 20 mg 20 mg TID GTB Last administered on 10/10/16at 20:19; Admin Dose 20 MG; Start 10/08/16 at 10:45 Vancomycin HCl/ Sodium Chloride (Vancocin/NS) 250 ml @ 83.333 mls/ hr Q96H IVPB Last administered on 10/09/16at 14:23; Admin Dose 83.333 MLS/HR; Start 10/09/16 at 13:30 Pramoxine HCl (Proctofoam 1%) 1 applic TID [place] Last administered on 10/12/16 16 :59; Admin Dose 1 APPLIC; Start 10/10/16 at 21:00 Assessment/Plan Additional Assessment/Plan IMPRESSION: 1. Ventilatory-dependent respiratory failure. 2. Status post septic shock. 3. Decubitus ulcers and polymicrobial sepsis. Persistent leukocytosis 4. Hypernatremia. 5. End-stage renal failure on hemodialysis. 6. Underlying seizure disorder. PLAN: 1. Vent support 2. BD's/CPT 3. am labs 4. TFs/free H20 5. Abx; f/u cx's WALT JUAERZ MD Oct 12, 2016 19:21
[2016-10-12] MEDS: MIRTAZAPINE 15 MG TAB GTB SCH (21:41)
[2016-10-13] VITALS (30 sets, daily range): BP systolic 87–114; BP diastolic 47–59; PULSE 75–100; RESP 12–23
[2016-10-13] MEDS: IPRATROPIUM (HFA) 12.9 GM INHALER INH SCH ×6 (00:34→20:36)
[2016-10-13] MEDS: LEVALBUTEROL (HFA) 15 GM INHALER INH SCH ×6 (00:34→20:37)
[2016-10-13] MEDS: METOCLOPRAMIDE 10 MG INJ IV SCH ×4 (05:39→18:15)
[2016-10-13] MEDS: metroNIDAZOLE 500 MG TAB PO SCH ×2 (05:40→13:56)
[2016-10-13] MEDS: LANSOPRAZOLE 30 MG CAP PO SCH (05:40)
[2016-10-13] MEDS: SILDENAFIL 20 MG TAB GTB SCH ×3 (09:00→21:13)
[2016-10-13] MEDS: BUDESONIDE (NEB) 0.5MG/2ML AMP HHN SCH ×2 (09:29→20:45)
[2016-10-13] MEDS: COLLAGENASE 30 GM TUBE TOP SCH (10:11)
[2016-10-13] MEDS: LEVETIRACETAM IV 500 MG in DEXTROSE 5% 100 ML IVPB SCH ×2 (10:11→21:13)
[2016-10-13] MEDS: PRAMOXINE 1% 15 GM RECT FOAM PR SCH ×3 (10:11→21:00)
[2016-10-13] MEDS: MUPIROCIN 2% 22 GM OINT TOP SCH ×2 (10:12→21:00)
--- NOTE | 2016-10-13 10:33 | PN ---
DATE: 10/13/2016 SUBJECTIVE: The patient is having output from her G-tube site. The abdomen appears to be more dist ended. No other events noted. OBJECTIVE: VITAL SIGNS: Blood pressure , respirations 22, pulse 93, temperature 98.3. I'S AND O'S: The patient had 2 liters in. HEENT: Head is normocephalic. NECK: Supple. HEART: Regular rate. LUNGS: Show diminished breath sounds at the base. ABDOMEN: Soft, nontender to palpation. No rebound or guarding. The patient is noted to be distende d but nontender to palpation. EXTREMITIES: Negative for clubbing, cyanosis. Trace edema. DERMATOLOGIC: No rashes. MUSCULOSKELETAL: No joint effusions. NEUROLOGIC: No change in exam. LABORATORY DATA: Has been reviewed. No new labs this morning. ASSESSMENT AND PLAN: 1. Sepsis secondary to pneumonia, decubitus wound. Continue current antibiotic regimen. 2. End-stage renal disease. Patient will have hemodialysis today, will dialyze 3 hours. 3. Hyponatremia secondary to end-stage renal disease. The sodium levels are improving. Continue f ree water restriction. 4. Abdominal ascites likely secondary to right-sided heart failure and end-stage renal disease. Co ntinue to monitor. We will discuss with GI whether to proceed with further paracentesis. 5. Pulmonary hypertension. Continue sildenafil. 6. Anemia. Continue to monitor hemoglobin and hematocrit levels. 7. Seizure disorder. Continue Keppra. 8. Decubitus wound. Continue wound care. 9. Diabetes. Continue Accu-Cheks and sliding scale. 10. Dysphagia, status post percutaneous endoscopic gastrostomy. Continue tube feeds. 11. Ventilator dependent respiratory failure. Vent settings have been reviewed. ABG has been revi ewed. Continue to monitor. 12. Chronic encephalopathy unchanged. 13. Atrial fibrillation, rate controlled. Continue medical management. 14. Gastrointestinal and deep venous thrombosis prophylaxis. Continue PPI, Eliquis. 15. Status post fungal urinary tract infection. 16. History of cerebrovascular accident. Dictated By: RUDDY BUSTILLOS/ARNOLDO Conf#: [id number] DID#: [id number]
--- NOTE | 2016-10-13 13:38 | CONS ---
Date/Time of Note Date/Time of Note DATE: 10/13/16 TIME: 13:36 Consult Date/Type/Reason Admit Date/Time Sep 17, 2016 at 18:49 Type of Consultation: ID Subjective no acute events, looks comfortable, no fevers, GT with some drainage around Objective Vital Signs Date Time Temp Pulse Resp B/P Pulse Ox O2 Delivery O2 Flow Rate FiO2 10/13/16 13:04 91 10/13/16 11:32 97.7 23 96/49 96 10/13/16 11:02 45 Intake and Output 10/12/16 10/12/16 10/13/16 15:00 23:00 07:00 Intake Total 650 ml 800 ml 700 ml Balance 650 ml 800 ml 700 ml Results/Medications Result Diagram: 10/12/16 0545 10/12/16 0545 Medications Current Medications Levetiracetam/ Dextrose (Keppra Iv/D5W) 105 ml @ 420 mls/hr Q12 IVPB Last administered on 10/13/16at 10:11; Admin Dose 420 MLS/HR; Start 09/18/16 at 09:00 Collagenase (Santyl) 1 applic DAILY TOP Last administered on 10/13/16at 10:11; Admin Dose 1 APPLIC; Start 09/18/16 at 09:00 Acetaminophen (Tylenol Liquid) 650 mg Q4H PRN NGT PAIN AND OR ELEVATED TEMP Last administered on 09/29/16at 12:07; Admin Dose 650 MG; Start 09/18/16 at 08: 00 Bisacodyl (Dulcolax Supp) 10 mg DAILY PRN [place] CONSTIPATION; Start 09/18/16 at 08:00 Mupirocin (Bactroban) Apply to bilateral nares ... BID TOP Last administered on 10/13/16at 10:12; Admin Dose 1 APPLIC; Start 09/18/16 at 09:00 Mirtazapine (Remeron) 7.5 mg HS GTB Last administered on 10/12/16at 21:41; Admin Dose 7.5 MG; Start 09/18/16 at 21:00 Ondansetron HCl (Zofran Inj) 4 mg Q4H PRN IV NAUSEA AND/OR VOMITING; Start 08/24 at 08:00 Morphine Sulfate (morphine) 2 mg Q3H PRN IV PAIN LEVEL 6-10 Last administered on 09/28/16at 12:25; Admin Dose 2 MG; Start 09/18/16 at 08:00 Lorazepam (Ativan) 0.5 mg Q3H PRN IV ANXIETY; Start 09/18/16 at 08:00 Amikacin Sulfate (Amikacin Iv Per Pharmacy) PER PHARMACY DOSING NOTE XX ; Start 09/18/16 at 13:00 Vancomycin HCl (Vanco Iv Per Pharmacy) PER PHARMACY DOSING NOTE XX ; Start 08/24 at 13:00 IV Flush (NS 10 ml) 10 ml PRN PRN IV IV PROTOCOL Last administered on at 06:01; Admin Dose 10 ML; Start 09/18/16 at 13:00 Miscellaneous Information 1 ea NOTE XX ; Start 09/19/16 at 12:00 Glucose (Glutose) 15 gm Q15M PRN PO DECREASED GLUCOSE; Start 09/19/16 at 12:00 Glucose (Glutose) 22.5 gm Q15M PRN PO DECREASED GLUCOSE; Start 09/19/16 at 12: 00 Dextrose (D50w Syringe) 25 ml Q15M PRN IV DECREASED GLUCOSE; Start 09/19/16 at 12:00 Dextrose (D50w Syringe) 50 ml Q15M PRN IV DECREASED GLUCOSE; Start 09/19/16 at 12:00 Glucagon (Glucagen) 1 mg Q15M PRN IM DECREASED GLUCOSE; Start 09/19/16 at 12: 00 Glucose (Glutose) 15 gm Q15M PRN BUCCAL DECREASED GLUCOSE; Start 09/19/16 at 12:00 Lansoprazole (Prevacid) 30 mg DAILY@06 PO Last administered on 10/13/16at 05:40 ; Admin Dose 30 MG; Start 09/27/16 at 06:00 Apixaban (Eliquis) 2.5 mg BID GTB Last administered on 10/11/16at 21:07; Admin Dose 2.5 MG; Start 09/30/16 at 09:00; Status Future Hold Metoclopramide HCl (Reglan) 5 mg Q6 IV Last administered on 10/13/16at 12:28; Admin Dose 5 MG; Start 09/30/16 at 12:00 Metronidazole (Flagyl) 500 mg Q8 PO Last administered on 10/13/16at 05:40; Admin Dose 500 MG; Start 10/01/16 at 14:30 Sildenafil Citrate 20 mg 20 mg TID GTB Last administered on 10/10/16at 20:19; Admin Dose 20 MG; Start 10/08/16 at 10:45 Vancomycin HCl/ Sodium Chloride (Vancocin/NS) 250 ml @ 83.333 mls/ hr Q96H IVPB Last administered on 10/09/16at 14:23; Admin Dose 83.333 MLS/HR; Start 10/09/16 at 13:30 Pramoxine HCl (Proctofoam 1%) 1 applic TID [place] Last administered on 10/13/16at 10 :11; Admin Dose 1 APPLIC; Start 10/10/16 at 21:00 Assessment/Plan Chief Complaint/Hosp Course MICROBIOLOGY: Endotracheal aspirate growing multidrug resistant Pseudomonas. Blood cultures negative, wound culture of her sacrum growing MRSA. Urine culture growing Kelly glabrata. INDWELLING: trach, PEG, RIJ Perm-A-Cath, Left upper extremity PICC line placed on 09/18/2016. ANTIMICROBIALS: 1. Amikacin. 2. Vancomycin. 3. Flagyl PHYSICAL EXAMINATION: GENERAL: Fragile, chronically ill-appearing, elderly woman who is lying comfortably in bed. HEENT: Head atraumatic, normocephalic. Sclerae anicteric. Buccal mucosa dry. NECK: Supple. Tracheostomy present. CHEST: Rise symmetrical. Breath sounds diminished to bases. HEART: S1, S2. ABDOMEN: Soft, bowel tones present. EXTREMITIES: Without cyanosis. ASSESSMENT: 1. Ongoing sepsis, status post shock. 2. S/p healthcare-associated pneumonia with parapneumonic pleural effusion and sputum culture growing multi-drug resistant Pseudomonas aeruginosa. 3. Methicillin-resistant Staphylococcus aureus infected decubitus. 4. GT site cellulitis==> GI follows 4. S/p kelly glabrata urinary tract infection. 5. Methicillin-resistant Staphylococcus aureus nares colonization. 6. End-stage renal disease, hemodialysis dependent. 7. History of cerebrovascular accident. 8. Ascites==> s/p paracentesis 09/24===> cx negative 9. Sacral decub, poss OM 10. ALLERGY TO PENICILLIN AND SULFA. PLAN: Clinically unchanged, no fevers, some erythema around GT site==> Dr Yanes follows, continue abx, topical Bactroban to nares, local wound care, GI rec-s staff Problems: RAISSA ROA NP Oct 13, 2016 13:38
[2016-10-13] MEDS: VANCOMYCIN 1.25 GM in SOD CHLORIDE 0.9% 250 ML IVPB SCH (13:49)
[2016-10-13 14:34] LABS: INR 1.71; PROTIME 20.2 Sec (12.2-14.2); PT RATIO 1.6
--- NOTE | 2016-10-13 15:04 | CONS ---
Date/Time of Note Date/Time of Note DATE: 10/13/16 TIME: 15:03 Consult Date/Type/Reason Admit Date/Time Sep 17, 2016 at 18:49 Type of Consultation: pulmonary Subjective Patient stable no new events still has drainage from G-tube site Objective Vital Signs Date Time Temp Pulse Resp B/P Pulse Ox O2 Delivery O2 Flow Rate FiO2 10/13/16 13:04 91 10/13/16 13:00 17 99 45 10/13/16 11:32 97.7 96/49 Intake and Output 10/12/16 10/12/16 10/13/16 15:00 23:00 07:00 Intake Total 650 ml 800 ml 825 ml Balance 650 ml 800 ml 825 ml GENERAL: Chronically ill-appearing lady on mechanical ventilation comfortable at rest VITAL SIGNS: per chart NECK: Supple. No JVD or lymphadenopathy. CARDIAC EXAM: S1, S2. No added sounds or murmurs. CHEST: clear bilaterally, No added sounds, rales or wheezes ABDOMEN: Soft, nontender. No guarding or rebound. Moderate distention EXTREMITIES: No cyanosis, clubbing edema +2 NEUROLOGIC: Generalized weakness. Results/Medications Result Diagram: 10/12/16 0545 10/12/16 0545 Results 24 hrs Laboratory Tests Test 10/13/16 14:10 INR International Normalized Ratio 1.71 Prothrombin Time 20.2 H Prothrombin Time Ratio 1.6 Medications Current Medications Levetiracetam/ Dextrose (Keppra Iv/D5W) 105 ml @ 420 mls/hr Q12 IVPB Last administered on 10/13/16at 10:11; Admin Dose 420 MLS/HR; Start 09/18/16 at 09:00 Collagenase (Santyl) 1 applic DAILY TOP Last administered on 10/13/16at 10:11; Admin Dose 1 APPLIC; Start 09/18/16 at 09:00 Acetaminophen (Tylenol Liquid) 650 mg Q4H PRN NGT PAIN AND OR ELEVATED TEMP Last administered on 09/29/16at 12:07; Admin Dose 650 MG; Start 09/18/16 at 08: 00 Bisacodyl (Dulcolax Supp) 10 mg DAILY PRN [place] CONSTIPATION; Start 09/18/16 at 08:00 Mupirocin (Bactroban) Apply to bilateral nares ... BID TOP Last administered on 10/13/16at 10:12; Admin Dose 1 APPLIC; Start 09/18/16 at 09:00 Mirtazapine (Remeron) 7.5 mg HS GTB Last administered on 10/12/16at 21:41; Admin Dose 7.5 MG; Start 09/18/16 at 21:00 Ondansetron HCl (Zofran Inj) 4 mg Q4H PRN IV NAUSEA AND/OR VOMITING; Start 08/24 at 08:00 Morphine Sulfate (morphine) 2 mg Q3H PRN IV PAIN LEVEL 6-10 Last administered on 09/28/16at 12:25; Admin Dose 2 MG; Start 09/18/16 at 08:00 Lorazepam (Ativan) 0.5 mg Q3H PRN IV ANXIETY; Start 09/18/16 at 08:00 Amikacin Sulfate (Amikacin Iv Per Pharmacy) PER PHARMACY DOSING NOTE XX ; Start 09/18/16 at 13:00 Vancomycin HCl (Vanco Iv Per Pharmacy) PER PHARMACY DOSING NOTE XX ; Start 08/24 at 13:00 IV Flush (NS 10 ml) 10 ml PRN PRN IV IV PROTOCOL Last administered on at 06:01; Admin Dose 10 ML; Start 09/18/16 at 13:00 Miscellaneous Information 1 ea NOTE XX ; Start 09/19/16 at 12:00 Glucose (Glutose) 15 gm Q15M PRN PO DECREASED GLUCOSE; Start 09/19/16 at 12:00 Glucose (Glutose) 22.5 gm Q15M PRN PO DECREASED GLUCOSE; Start 09/19/16 at 12: 00 Dextrose (D50w Syringe) 25 ml Q15M PRN IV DECREASED GLUCOSE; Start 09/19/16 at 12:00 Dextrose (D50w Syringe) 50 ml Q15M PRN IV DECREASED GLUCOSE; Start 09/19/16 at 12:00 Glucagon (Glucagen) 1 mg Q15M PRN IM DECREASED GLUCOSE; Start 09/19/16 at 12: 00 Glucose (Glutose) 15 gm Q15M PRN BUCCAL DECREASED GLUCOSE; Start 09/19/16 at 12:00 Lansoprazole (Prevacid) 30 mg DAILY@06 PO Last administered on 10/13/16at 05:40 ; Admin Dose 30 MG; Start 09/27/16 at 06:00 Apixaban (Eliquis) 2.5 mg BID GTB Last administered on 10/11/16 21:07; Admin Dose 2.5 MG; Start 09/30/16 at 09:00; Status Future Hold Metoclopramide HCl (Reglan) 5 mg Q6 IV Last administered on 10/13/16 12:28; Admin Dose 5 MG; Start 09/30/16 at 12:00 Metronidazole (Flagyl) 500 mg Q8 PO Last administered on 10/13/16 13:56; Admin Dose 500 MG; Start 10/01/16 at 14:30 Sildenafil Citrate 20 mg 20 mg TID GTB Last administered on 10/10/16 20:19; Admin Dose 20 MG; Start 10/08/16 at 10:45 Vancomycin HCl/ Sodium Chloride (Vancocin/NS) 250 ml @ 83.333 mls/ hr Q96H IVPB Last administered on 10/13/16 13:49; Admin Dose 83.333 MLS/HR; Start 10/09/16 at 13:30 Pramoxine HCl (Proctofoam 1%) 1 applic TID [place] Last administered on 10/13/16 13 :49; Admin Dose 1 APPLIC; Start 10/10/16 at 21:00 Assessment/Plan Chief Complaint/Hosp Course Additional Assessment/Plan IMPRESSION: 1. Ventilatory-dependent respiratory failure. 2. Status post septic shock. 3. Decubitus ulcers and polymicrobial sepsis. Persistent leukocytosis 4. Hypernatremia. 5. End-stage renal failure on hemodialysis. 6. Underlying seizure disorder. PLAN: 1. Vent support 2. BD's/CPT 3. am labs 4. TFs/free H20 5. Abx; f/u cx's Problems: JULIA HERNANDEZ MD, [facility] Oct 13, 2016 15:04
--- NOTE | 2016-10-13 17:58 | CONS ---
Date/Time of Note Date/Time of Note DATE: 10/13/16 TIME: 17:55 Assessment/Plan Assessment/Plan Additional Assessment/Plan Chief Complaint/Hosp Course ASSESSMENT: 1. Renal failure on dialysis. 2. Vent dependent respiratory failure. 3. Chronic obstructive pulmonary disease. 4. Atrial fibrillation. 5. Ascites, successful paracentesis done. 6. Dysphagia 7. G-tube clean,no leakage,tolerating feeding 8. Anemia: stable, likely from anemia of chronic disease 9. Status post septic shock. 10. Diabetes mellitus. 11. Decubitus ulcer. 12. Congestive heart failure. 13. Seizure disorder. 14. pneumonia,s/p sepsis 15.pulmonary hypertension 16 persistent leucocytosis,better 17.pressure ulcer g tube site Plan continue antibiotics per ID Reglan for gastroparesis Bactroban to g tube site. Routine G-tube site care no dressing around g tube site.which is clean wound care nurse input Consultation Date/Type/Reason Admit Date/Time Sep 17, 2016 at 18:49 Type of Consultation: pulmonary 24 HR Interval Summary Free Text/Dictation mild serous leakage around g tube site Exam/Review of Systems Vital Signs Vitals Vital Signs Date Time Temp Pulse Resp B/P Pulse Ox O2 Delivery O2 Flow Rate FiO2 10/13/16 17:12 82 10/13/16 16:46 14 98 45 10/13/16 15:38 97.8 110/57 Intake and Output 10/12/16 10/12/16 10/13/16 14:59 22:59 06:59 Intake Total 650 ml 800 ml 750 ml Balance 650 ml 800 ml 750 ml Exam Psych: nl mood/affect, no complaints Neck: non-tender, supple Cardiovascular: nl pulses, regular rate and rhythm Gastrointestinal: other (gtube site superfiscial ulcer secondary to bumper,no abscess) Musculoskeletal: nl extremities to inspection, nl gait and stance Extremities: normal pulses Neurological: [employer] II-XII intact, nl mental status, nl speech, nl strength Results Result Diagram: 10/12/16 0545 10/12/16 0545 Results 24 hrs Laboratory Tests Test 10/13/16 14:10 INR International Normalized Ratio 1.71 Prothrombin Time 20.2 H Prothrombin Time Ratio 1.6 Medications Medications Current Medications Levetiracetam/ Dextrose (Keppra Iv/D5W) 105 ml @ 420 mls/hr Q12 IVPB Last administered on 10/13/16at 10:11; Admin Dose 420 MLS/HR; Start 09/18/16 at 09:00 Collagenase (Santyl) 1 applic DAILY TOP Last administered on 10/13/16at 10:11; Admin Dose 1 APPLIC; Start 09/18/16 at 09:00 Acetaminophen (Tylenol Liquid) 650 mg Q4H PRN NGT PAIN AND OR ELEVATED TEMP Last administered on 09/29/16at 12:07; Admin Dose 650 MG; Start 09/18/16 at 08: 00 Bisacodyl (Dulcolax Supp) 10 mg DAILY PRN [place] CONSTIPATION; Start 09/18/16 at 08:00 Mupirocin (Bactroban) Apply to bilateral nares ... BID TOP Last administered on 10/13/16at 10:12; Admin Dose 1 APPLIC; Start 09/18/16 at 09:00 Mirtazapine (Remeron) 7.5 mg HS GTB Last administered on 10/12/16at 21:41; Admin Dose 7.5 MG; Start 09/18/16 at 21:00 Ondansetron HCl (Zofran Inj) 4 mg Q4H PRN IV NAUSEA AND/OR VOMITING; Start 08/24 at 08:00 Morphine Sulfate (morphine) 2 mg Q3H PRN IV PAIN LEVEL 6-10 Last administered on 09/28/16at 12:25; Admin Dose 2 MG; Start 09/18/16 at 08:00 Lorazepam (Ativan) 0.5 mg Q3H PRN IV ANXIETY; Start 09/18/16 at 08:00 Amikacin Sulfate (Amikacin Iv Per Pharmacy) PER PHARMACY DOSING NOTE XX ; Start 09/18/16 at 13:00 Vancomycin HCl (Vanco Iv Per Pharmacy) PER PHARMACY DOSING NOTE XX ; Start 08/24 at 13:00 IV Flush (NS 10 ml) 10 ml PRN PRN IV IV PROTOCOL Last administered on at 06:01; Admin Dose 10 ML; Start 09/18/16 at 13:00 Miscellaneous Information 1 ea NOTE XX ; Start 09/19/16 at 12:00 Glucose (Glutose) 15 gm Q15M PRN PO DECREASED GLUCOSE; Start 09/19/16 at 12:00 Glucose (Glutose) 22.5 gm Q15M PRN PO DECREASED GLUCOSE; Start 09/19/16 at 12: 00 Dextrose (D50w Syringe) 25 ml Q15M PRN IV DECREASED GLUCOSE; Start 09/19/16 at 12:00 Dextrose (D50w Syringe) 50 ml Q15M PRN IV DECREASED GLUCOSE; Start 09/19/16 at 12:00 Glucagon (Glucagen) 1 mg Q15M PRN IM DECREASED GLUCOSE; Start 09/19/16 at 12: 00 Glucose (Glutose) 15 gm Q15M PRN BUCCAL DECREASED GLUCOSE; Start 09/19/16 at 12:00 Lansoprazole (Prevacid) 30 mg DAILY@06 PO Last administered on 10/13/16at 05:40 ; Admin Dose 30 MG; Start 09/27/16 at 06:00 Apixaban (Eliquis) 2.5 mg BID GTB Last administered on 10/11/16at 21:07; Admin Dose 2.5 MG; Start 09/30/16 at 09:00; Status Future Hold Metoclopramide HCl (Reglan) 5 mg Q6 IV Last administered on 10/13/16at 12:28; Admin Dose 5 MG; Start 09/30/16 at 12:00 Metronidazole (Flagyl) 500 mg Q8 PO Last administered on 10/13/16at 13:56; Admin Dose 500 MG; Start 10/01/16 at 14:30 Sildenafil Citrate 20 mg 20 mg TID GTB Last administered on 10/10/16at 20:19; Admin Dose 20 MG; Start 10/08/16 at 10:45 Vancomycin HCl/ Sodium Chloride (Vancocin/NS) 250 ml @ 83.333 mls/ hr Q96H IVPB Last administered on 10/13/16at 13:49; Admin Dose 83.333 MLS/HR; Start 10/09/16 at 13:30 Pramoxine HCl (Proctofoam 1%) 1 applic TID [place] Last administered on 10/13/16 13 :49; Admin Dose 1 APPLIC; Start 10/10/16 at 21:00 ANNABEL CISSE MD Oct 13, 2016 17:58
[2016-10-13] MEDS: MIRTAZAPINE 15 MG TAB GTB SCH (21:12)
[2016-10-13] MEDS: ALBUMIN HUMAN 25% 100 ML IV PRN ×2 (22:10→22:59)
--- NOTE | 2016-10-13 22:11 | PN ---
DATE: 10/13/2016 SUBJECTIVE: Discussed with the staff. Rhythm strip reviewed. The patient remains in atrial fibril lation, heart rate under good control. Remains on the vent. MEDICATIONS: Reviewed. PHYSICAL EXAMINATION: VITAL SIGNS: Temperature 97.8, heart of 82, blood pressure 110/57, respiratory rate of 14. HEENT: Normocephalic, atraumatic. Pupils are equal. NECK: Status post tracheostomy, on the vent. CARDIOVASCULAR: Irregularly irregular, systolic and diastolic murmur. PULMONARY: Mild rhonchi. GASTROINTESTINAL: Soft, nontender. ____ EXTREMITIES: Positive lower extremity edema. NEUROLOGIC: Awake, responds appropriately. PSYCHIATRIC: Appeared to be calm and pleasant. LABORATORY: WBC of 12.1, hemoglobin 8.4, platelets of 226. INR is 1.71. Sodium 132, potassium 4.1 , BUN 43, creatinine 1.33. ASSESSMENT AND PLAN: 1. Hypoxemic respiratory failure, status post tracheostomy, ventilator dependent. 2. Pulmonary hypertension. 3. Atrial fibrillation. 4. Anemia. 5. Renal failure, on dialysis. 6. Status post sepsis. RECOMMENDATIONS: The patient's heart rate under good control now, will continue vent support. ____ as tolerated, to be continued. Anticoagulation is still on hold. Continue to monitor on telemetry . Dictated By: AMANDA LARA/ARNOLDO Conf#: [id number] DID#: [id number] CC: RUDDY GEE DO;*EndCC*
[2016-10-14] VITALS (25 sets, daily range): BP systolic 92–111; BP diastolic 40–57; PULSE 75–90; RESP 12–24
[2016-10-14] MEDS: METOCLOPRAMIDE 10 MG INJ IV SCH ×4 (01:21→17:38)
[2016-10-14] MEDS: metroNIDAZOLE 500 MG TAB PO SCH ×4 (01:21→22:45)
[2016-10-14] MEDS: IPRATROPIUM (HFA) 12.9 GM INHALER INH SCH ×6 (01:49→21:05)
[2016-10-14] MEDS: LEVALBUTEROL (HFA) 15 GM INHALER INH SCH ×6 (01:50→21:05)
[2016-10-14] MEDS: LANSOPRAZOLE 30 MG CAP PO SCH (05:48)
[2016-10-14 06:21] LABS: BASOPHILS % 0.2 % (0.0-2.0); EOSINOPHILS % 0.1 % (0.0-7.0); HEMATOCRIT 26.6 % (37.0-47.0); HEMOGLOBIN 8.3 g/dl (12.0-16.0); LYMPHOCYTES # 1.1 10^3/ul (0.8-2.9); LYMPHOCYTES % 9.3 % (15.0-51.0); MEAN CORPUSCULAR HEMOGLOBIN 30.8 pg (29.0-33.0); MEAN CORPUSCULAR HGB CONC 31.3 g/dl (32.0-37.0); MEAN CORPUSCULAR VOLUME 98.4 fl (82.0-101.0); MEAN PLATELET VOLUME 7.2 fl (7.4-10.4); MONOCYTES % 8.7 % (0.0-11.0); NEUTROPHIL # 9.3 10^3/ul (1.6-7.5); NEUTROPHILS % 81.7 % (39.0-77.0); PLATELET COUNT 220 10^3/UL (140-440); RED BLOOD COUNT 2.71 10^6/ul (4.20-5.40); RED CELL DISTRIBUTION WIDTH 23.8 % (11.5-14.5); UNCORRECTED WBC 11.4 10^3/ul (4.8-10.8); WHITE BLOOD COUNT 11.4 10^3/ul (4.8-10.8)
[2016-10-14 06:22] LABS: CONDITION 1; LH ANALYZER COMMENTS 1
[2016-10-14 06:44] LABS: POTASSIUM 3.8 mmol/L (3.5-5.1)
[2016-10-14 06:46] LABS: CREATININE 1.12 mg/dl (0.44-1.00)
[2016-10-14 06:48] LABS: CALCIUM 7.6 mg/dl (8.4-10.2); PHOSPHORUS 2.7 mg/dl (2.5-4.9)
[2016-10-14] MEDS: BUDESONIDE (NEB) 0.5MG/2ML AMP HHN SCH ×2 (08:37→19:24)
[2016-10-14] MEDS: MUPIROCIN 2% 22 GM OINT TOP SCH ×2 (10:09→22:47)
[2016-10-14] MEDS: COLLAGENASE 30 GM TUBE TOP SCH (10:09)
[2016-10-14] MEDS: PRAMOXINE 1% 15 GM RECT FOAM PR SCH ×3 (10:10→22:47)
[2016-10-14] MEDS: SILDENAFIL 20 MG TAB GTB SCH ×3 (10:10→22:45)
[2016-10-14] MEDS: LEVETIRACETAM IV 500 MG in DEXTROSE 5% 100 ML IVPB SCH ×2 (10:10→22:46)
[2016-10-14] MEDS: AMIKACIN IVPB SCH (10:11)
[2016-10-14] MEDS: SOD CHLORIDE 0.9% IVPB SCH (10:11)
[2016-10-14] MEDS: EPOETIN 10000 UNITS/1 ML INJ (ESRD) SC SCH (10:11)
--- NOTE | 2016-10-14 10:14 | PN ---
DATE: 10/14/2016 SUBJECTIVE: The patient had hemodialysis yesterday, tolerated well. The patient is pending a parac entesis today. No other acute events noted overnight. OBJECTIVE: VITAL SIGNS: Blood pressure 104/56, respiration 18, pulse 89, temperature 98.1. HEENT: Head is normocephalic. NECK: Supple. HEART: Regular rate. LUNGS: Show diminished breath sounds at the base. ABDOMEN: Soft, nontender to palpation without rebound or guarding. EXTREMITIES: Negative for clubbing, cyanosis, no edema. DERMATOLOGIC: No rashes. MUSCULOSKELETAL: No joint effusions. NEUROLOGIC: No change in exam. MEDICATIONS: The patient's medications have been reviewed. LABORATORY DATA: Showed sodium 132, potassium 3.8, chloride 94, bicarbonate 32, BUN 32, creatinine 1.12. White count 11.4, hemoglobin 9.3, hematocrit 36.6, platelet count is 220. ASSESSMENT AND PLAN: 1. Sepsis secondary to pneumonia, decubitus wound. Continue current antibiotic regimen. 2. End stage renal disease. The patient had hemodialysis yesterday, tolerated well. Anticipate monae lysis tomorrow. 3. Abdominal ascites secondary to right-sided heart failure and end-stage renal disease. The patie nt is pending for paracentesis today. 4. Hyponatremia secondary to end-stage renal disease. Sodium levels improved. Continue free water restriction. 5. Pulmonary hypertension. Continue sildenafil. 6. Anemia. Continue to monitor hemoglobin and hematocrit levels. 7. Seizure disorder. Continue Keppra. 8. Decubitus wound. Continue wound care. 9. Diabetes. Continue Accu-Cheks and sliding scale. 10. Dysphagia. Has a PEG tube for tube feeding. 11. Ventilator dependent respiratory failure. Vent settings reviewed. Continue to monitor. 12. Chronic encephalopathy. No change. 13. Atrial fibrillation, rate controlled. Continue medical management. 14. Status post fungal urinary tract infection. 15. History of cerebrovascular accident. 16. Gastrointestinal and deep venous thrombosis prophylaxis. Continue proton pump inhibitor. Holdi ng Eliquis until post-paracentesis. No other events noted. Dictated By: RUDDY GEE DO NR/ARNOLDO Conf#: [id number] DID#: [id number]
--- NOTE | 2016-10-14 10:41 | CONS ---
Date/Time of Note Date/Time of Note DATE: 10/14/16 TIME: 10:39 Assessment/Plan Assessment/Plan Additional Assessment/Plan Chief Complaint/Hosp Course ASSESSMENT: 1. Renal failure on dialysis. 2. Vent dependent respiratory failure. 3. Chronic obstructive pulmonary disease. 4. Atrial fibrillation. 5. Ascites, successful paracentesis done. 6. Dysphagia 7. G-tube clean,no leakage,tolerating feeding 8. Anemia: stable, likely from anemia of chronic disease 9. Status post septic shock. 10. Diabetes mellitus. 11. Decubitus ulcer. 12. Congestive heart failure. 13. Seizure disorder. 14. pneumonia,s/p sepsis 15.pulmonary hypertension 16 persistent leucocytosis,better 17.pressure ulcer g tube site Plan continue antibiotics per ID Reglan for gastroparesis Bactroban to g tube site. Routine G-tube site care no dressing around g tube site.which is clean wound care nurse to evaluate g tube site Consultation Date/Type/Reason Admit Date/Time Sep 17, 2016 at 18:49 Type of Consultation: pulmonary 24 HR Interval Summary Constitutional: no complaints Exam/Review of Systems Vital Signs Vitals Vital Signs Date Time Temp Pulse Resp B/P Pulse Ox O2 Delivery O2 Flow Rate FiO2 10/14/16 08:26 86 10/14/16 08:00 50 10/14/16 07:09 98.1 22 104/56 97 Intake and Output 10/13/16 10/13/16 10/14/16 14:59 22:59 06:59 Intake Total 450 ml 200 ml 1000 ml Output Total 430 ml Balance 450 ml 200 ml 570 ml Exam Constitutional: alert, oriented, well developed Psych: nl mood/affect, no complaints Head: atraumatic, normocephalic Eyes: EOMI, PERRL, nl conjunctiva, nl lids, nl sclera ENMT: nl external ears & nose, nl lips & teeth, nl nasal mucosa & septum Neck: non-tender, supple Respiratory: clear to auscultation, normal air movement Cardiovascular: nl pulses, regular rate and rhythm Gastrointestinal: nl liver, spleen, non-tender, soft Musculoskeletal: nl extremities to inspection, nl gait and stance Extremities: normal pulses Neurological: COMBINATION TECHNICIAN II-XII intact, nl mental status, nl speech, nl strength Skin: nl turgor, No rash or lesions Lymph: nl lymph nodes Results Result Diagram: 10/14/16 0551 10/14/16 0551 Results 24 hrs Laboratory Tests Test 10/13/16 14:10 10/14/16 05:51 INR International Normalized Ratio 1.71 Prothrombin Time 20.2 H Prothrombin Time Ratio 1.6 Anion Gap 10 Basophils # 0.0 Basophils % 0.2 Blood Morphology Comment Blood Urea Nitrogen 32 H Calcium Level 7.6 L Carbon Dioxide Level 32 H Chloride Level 94 L Creatinine 1.12 H Eosinophils # 0.0 Eosinophils % 0.1 Glucose Level 96 Hematocrit 26.6 L Hemoglobin 8.3 L Lymphocytes # 1.1 Lymphocytes % 9.3 L Magnesium Level 2.0 Mean Corpuscular Hemoglobin 30.8 Mean Corpuscular Hemoglobin Concent 31.3 L Mean Corpuscular Volume 98.4 Mean Platelet Volume 7.2 L Monocytes # 1.0 H Monocytes % 8.7 Neutrophils # 9.3 H Neutrophils % 81.7 H Nucleated Red Blood Cells # 0.0 Nucleated Red Blood Cells % 0.0 Phosphorus Level 2.7 Platelet Count 220 Potassium Level 3.8 Red Blood Count 2.71 L Red Cell Distribution Width 23.8 H Sodium Level 132 L White Blood Count 11.4 H Medications Medications Current Medications Levetiracetam/ Dextrose (Keppra Iv/D5W) 105 ml @ 420 mls/hr Q12 IVPB Last administered on 10/14/16at 10:10; Admin Dose 420 MLS/HR; Start 09/18/16 at 09:00 Collagenase (Santyl) 1 applic DAILY TOP Last administered on 10/14/16at 10:09; Admin Dose 1 APPLIC; Start 09/18/16 at 09:00 Acetaminophen (Tylenol Liquid) 650 mg Q4H PRN NGT PAIN AND OR ELEVATED TEMP Last administered on 09/29/16at 12:07; Admin Dose 650 MG; Start 09/18/16 at 08: 00 Bisacodyl (Dulcolax Supp) 10 mg DAILY PRN [place] CONSTIPATION; Start 09/18/16 at 08:00 Mupirocin (Bactroban) Apply to bilateral nares ... BID TOP Last administered on 10/14/16at 10:09; Admin Dose 1 APPLIC; Start 09/18/16 at 09:00 Mirtazapine (Remeron) 7.5 mg HS GTB Last administered on 10/13/16at 21:12; Admin Dose 7.5 MG; Start 09/18/16 at 21:00 Ondansetron HCl (Zofran Inj) 4 mg Q4H PRN IV NAUSEA AND/OR VOMITING; Start 08/24 at 08:00 Morphine Sulfate (morphine) 2 mg Q3H PRN IV PAIN LEVEL 6-10 Last administered on 09/28/16at 12:25; Admin Dose 2 MG; Start 09/18/16 at 08:00 Lorazepam (Ativan) 0.5 mg Q3H PRN IV ANXIETY; Start 09/18/16 at 08:00 Amikacin Sulfate (Amikacin Iv Per Pharmacy) PER PHARMACY DOSING NOTE XX ; Start 09/18/16 at 13:00 Vancomycin HCl (Vanco Iv Per Pharmacy) PER PHARMACY DOSING NOTE XX ; Start 08/24 at 13:00 IV Flush (NS 10 ml) 10 ml PRN PRN IV IV PROTOCOL Last administered on at 06:01; Admin Dose 10 ML; Start 09/18/16 at 13:00 Miscellaneous Information 1 ea NOTE XX ; Start 09/19/16 at 12:00 Glucose (Glutose) 15 gm Q15M PRN PO DECREASED GLUCOSE; Start 09/19/16 at 12:00 Glucose (Glutose) 22.5 gm Q15M PRN PO DECREASED GLUCOSE; Start 09/19/16 at 12: 00 Dextrose (D50w Syringe) 25 ml Q15M PRN IV DECREASED GLUCOSE; Start 09/19/16 at 12:00 Dextrose (D50w Syringe) 50 ml Q15M PRN IV DECREASED GLUCOSE; Start 09/19/16 at 12:00 Glucagon (Glucagen) 1 mg Q15M PRN IM DECREASED GLUCOSE; Start 09/19/16 at 12: 00 Glucose (Glutose) 15 gm Q15M PRN BUCCAL DECREASED GLUCOSE; Start 09/19/16 at 12:00 Lansoprazole (Prevacid) 30 mg DAILY@06 PO Last administered on 10/14/16at 05:48 ; Admin Dose 30 MG; Start 09/27/16 at 06:00 Apixaban (Eliquis) 2.5 mg BID GTB Last administered on 10/11/16at 21:07; Admin Dose 2.5 MG; Start 09/30/16 at 09:00; Status Future Hold Metoclopramide HCl (Reglan) 5 mg Q6 IV Last administered on 10/14/16 05:48; Admin Dose 5 MG; Start 09/30/16 at 12:00 Metronidazole (Flagyl) 500 mg Q8 PO Last administered on 10/14/16 01:21; Admin Dose 500 MG; Start 10/01/16 at 14:30 Sildenafil Citrate 20 mg 20 mg TID GTB Last administered on 10/14/16 10:10; Admin Dose 20 MG; Start 10/08/16 at 10:45 Vancomycin HCl/ Sodium Chloride (Vancocin/NS) 250 ml @ 83.333 mls/ hr Q96H IVPB Last administered on 10/13/16 13:49; Admin Dose 83.333 MLS/HR; Start 10/09/16 at 13:30 Pramoxine HCl (Proctofoam 1%) 1 applic TID [place] Last administered on 10/14/16at 10 :10; Admin Dose 1 APPLIC; Start 10/10/16 at 21:00 ANNABEL CISSE MD Oct 14, 2016 10:41
--- NOTE | 2016-10-14 11:42 | CONS ---
Date/Time of Note Date/Time of Note DATE: 10/14/16 TIME: 11:41 Consult Date/Type/Reason Admit Date/Time Sep 17, 2016 at 18:49 Type of Consultation: ID Subjective no events, looks comfortable, no fevers Objective Vital Signs Date Time Temp Pulse Resp B/P Pulse Ox O2 Delivery O2 Flow Rate FiO2 10/14/16 11:29 98.2 85 16 111/56 99 10/14/16 08:00 50 Intake and Output 10/13/16 10/13/16 10/14/16 15:00 23:00 07:00 Intake Total 425 ml 150 ml 1000 ml Output Total 430 ml Balance 425 ml 150 ml 570 ml Results/Medications Result Diagram: 10/14/16 0551 10/14/16 0551 Results 24 hrs Laboratory Tests Test 10/13/16 14:10 10/14/16 05:51 INR International Normalized Ratio 1.71 Prothrombin Time 20.2 H Prothrombin Time Ratio 1.6 Anion Gap 10 Basophils # 0.0 Basophils % 0.2 Blood Morphology Comment Blood Urea Nitrogen 32 H Calcium Level 7.6 L Carbon Dioxide Level 32 H Chloride Level 94 L Creatinine 1.12 H Eosinophils # 0.0 Eosinophils % 0.1 Glucose Level 96 Hematocrit 26.6 L Hemoglobin 8.3 L Lymphocytes # 1.1 Lymphocytes % 9.3 L Magnesium Level 2.0 Mean Corpuscular Hemoglobin 30.8 Mean Corpuscular Hemoglobin Concent 31.3 L Mean Corpuscular Volume 98.4 Mean Platelet Volume 7.2 L Monocytes # 1.0 H Monocytes % 8.7 Neutrophils # 9.3 H Neutrophils % 81.7 H Nucleated Red Blood Cells # 0.0 Nucleated Red Blood Cells % 0.0 Phosphorus Level 2.7 Platelet Count 220 Potassium Level 3.8 Red Blood Count 2.71 L Red Cell Distribution Width 23.8 H Sodium Level 132 L White Blood Count 11.4 H Medications Current Medications Levetiracetam/ Dextrose (Keppra Iv/D5W) 105 ml @ 420 mls/hr Q12 IVPB Last administered on 10/14/16at 10:10; Admin Dose 420 MLS/HR; Start 09/18/16 at 09:00 Collagenase (Santyl) 1 applic DAILY TOP Last administered on 10/14/16at 10:09; Admin Dose 1 APPLIC; Start 09/18/16 at 09:00 Acetaminophen (Tylenol Liquid) 650 mg Q4H PRN NGT PAIN AND OR ELEVATED TEMP Last administered on 09/29/16at 12:07; Admin Dose 650 MG; Start 09/18/16 at 08: 00 Bisacodyl (Dulcolax Supp) 10 mg DAILY PRN [place] CONSTIPATION; Start 09/18/16 at 08:00 Mupirocin (Bactroban) Apply to bilateral nares ... BID TOP Last administered on 10/14/16at 10:09; Admin Dose 1 APPLIC; Start 09/18/16 at 09:00 Mirtazapine (Remeron) 7.5 mg HS GTB Last administered on 10/13/16at 21:12; Admin Dose 7.5 MG; Start 09/18/16 at 21:00 Ondansetron HCl (Zofran Inj) 4 mg Q4H PRN IV NAUSEA AND/OR VOMITING; Start 08/24 at 08:00 Morphine Sulfate (morphine) 2 mg Q3H PRN IV PAIN LEVEL 6-10 Last administered on 09/28/16at 12:25; Admin Dose 2 MG; Start 09/18/16 at 08:00 Lorazepam (Ativan) 0.5 mg Q3H PRN IV ANXIETY; Start 09/18/16 at 08:00 Amikacin Sulfate (Amikacin Iv Per Pharmacy) PER PHARMACY DOSING NOTE XX ; Start 09/18/16 at 13:00 Vancomycin HCl (Vanco Iv Per Pharmacy) PER PHARMACY DOSING NOTE XX ; Start 08/24 at 13:00 IV Flush (NS 10 ml) 10 ml PRN PRN IV IV PROTOCOL Last administered on at 06:01; Admin Dose 10 ML; Start 09/18/16 at 13:00 Miscellaneous Information 1 ea NOTE XX ; Start 09/19/16 at 12:00 Glucose (Glutose) 15 gm Q15M PRN PO DECREASED GLUCOSE; Start 09/19/16 at 12:00 Glucose (Glutose) 22.5 gm Q15M PRN PO DECREASED GLUCOSE; Start 09/19/16 at 12: 00 Dextrose (D50w Syringe) 25 ml Q15M PRN IV DECREASED GLUCOSE; Start 09/19/16 at 12:00 Dextrose (D50w Syringe) 50 ml Q15M PRN IV DECREASED GLUCOSE; Start 09/19/16 at 12:00 Glucagon (Glucagen) 1 mg Q15M PRN IM DECREASED GLUCOSE; Start 09/19/16 at 12: 00 Glucose (Glutose) 15 gm Q15M PRN BUCCAL DECREASED GLUCOSE; Start 09/19/16 at 12:00 Lansoprazole (Prevacid) 30 mg DAILY@06 PO Last administered on 10/14/16at 05:48 ; Admin Dose 30 MG; Start 09/27/16 at 06:00 Apixaban (Eliquis) 2.5 mg BID GTB Last administered on 10/11/16at 21:07; Admin Dose 2.5 MG; Start 09/30/16 at 09:00; Status Future Hold Metoclopramide HCl (Reglan) 5 mg Q6 IV Last administered on 10/14/16at 05:48; Admin Dose 5 MG; Start 09/30/16 at 12:00 Metronidazole (Flagyl) 500 mg Q8 PO Last administered on 10/14/16 01:21; Admin Dose 500 MG; Start 10/01/16 at 14:30 Sildenafil Citrate 20 mg 20 mg TID GTB Last administered on 10/14/16at 10:10; Admin Dose 20 MG; Start 10/08/16 at 10:45 Vancomycin HCl/ Sodium Chloride (Vancocin/NS) 250 ml @ 83.333 mls/ hr Q96H IVPB Last administered on 10/13/16 13:49; Admin Dose 83.333 MLS/HR; Start 10/09/16 at 13:30 Pramoxine HCl (Proctofoam 1%) 1 applic TID [place] Last administered on 10/14/16 10 :10; Admin Dose 1 APPLIC; Start 10/10/16 at 21:00 Assessment/Plan Chief Complaint/Hosp Course MICROBIOLOGY: Endotracheal aspirate growing multidrug resistant Pseudomonas. Blood cultures negative, wound culture of her sacrum growing MRSA. Urine culture growing Kelly glabrata. INDWELLING: trach, PEG, RIJ Perm-A-Cath, Left upper extremity PICC line placed on 09/18/2016. ANTIMICROBIALS: 1. Amikacin. 2. Vancomycin. 3. Flagyl PHYSICAL EXAMINATION: GENERAL: Fragile, chronically ill-appearing, elderly woman who is lying comfortably in bed. HEENT: Head atraumatic, normocephalic. Sclerae anicteric. Buccal mucosa dry. NECK: Supple. Tracheostomy present. CHEST: Rise symmetrical. Breath sounds diminished to bases. HEART: S1, S2. ABDOMEN: Soft, bowel tones present. EXTREMITIES: Without cyanosis. ASSESSMENT: 1. Ongoing sepsis, status post shock. 2. S/p healthcare-associated pneumonia with parapneumonic pleural effusion and sputum culture growing multi-drug resistant Pseudomonas aeruginosa. 3. Methicillin-resistant Staphylococcus aureus infected decubitus. 4. GT site cellulitis==> GI follows 4. S/p kelly glabrata urinary tract infection. 5. Methicillin-resistant Staphylococcus aureus nares colonization. 6. End-stage renal disease, hemodialysis dependent. 7. History of cerebrovascular accident. 8. Ascites==> s/p paracentesis 09/24===> cx negative 9. Sacral decub, poss OM 10. ALLERGY TO PENICILLIN AND SULFA. PLAN: Clinically unchanged, no fevers, continue abx. GT site care per GI rec-s, vent per pulmonary DW staff Problems: RAISSA ROA NP Oct 14, 2016 11:42
--- NOTE | 2016-10-14 13:49 | CONS ---
Date/Time of Note Date/Time of Note DATE: 10/14/16 TIME: 12:08 Consult Date/Type/Reason Admit Date/Time Sep 17, 2016 at 18:49 Type of Consultation: pulmonary Subjective Patient stable no new events Objective Vital Signs Date Time Temp Pulse Resp B/P Pulse Ox O2 Delivery O2 Flow Rate FiO2 10/14/16 11:29 98.2 85 16 111/56 99 10/14/16 08:00 50 Intake and Output 10/13/16 10/13/16 10/14/16 15:00 23:00 07:00 Intake Total 425 ml 150 ml 1000 ml Output Total 430 ml Balance 425 ml 150 ml 570 ml GENERAL: Chronically ill-appearing lady on mechanical ventilation comfortable at rest VITAL SIGNS: per chart NECK: Supple. No JVD or lymphadenopathy. CARDIAC EXAM: S1, S2. No added sounds or murmurs. CHEST: clear bilaterally, No added sounds, rales or wheezes ABDOMEN: Soft, nontender. No guarding or rebound. Moderate distention EXTREMITIES: No cyanosis, clubbing edema +2 NEUROLOGIC: Generalized weakness. Results/Medications Result Diagram: 10/14/16 0551 10/14/16 0551 Results 24 hrs Laboratory Tests Test 10/13/16 14:10 10/14/16 05:51 INR International Normalized Ratio 1.71 Prothrombin Time 20.2 H Prothrombin Time Ratio 1.6 Anion Gap 10 Basophils # 0.0 Basophils % 0.2 Blood Morphology Comment Blood Urea Nitrogen 32 H Calcium Level 7.6 L Carbon Dioxide Level 32 H Chloride Level 94 L Creatinine 1.12 H Eosinophils # 0.0 Eosinophils % 0.1 Glucose Level 96 Hematocrit 26.6 L Hemoglobin 8.3 L Lymphocytes # 1.1 Lymphocytes % 9.3 L Magnesium Level 2.0 Mean Corpuscular Hemoglobin 30.8 Mean Corpuscular Hemoglobin Concent 31.3 L Mean Corpuscular Volume 98.4 Mean Platelet Volume 7.2 L Monocytes # 1.0 H Monocytes % 8.7 Neutrophils # 9.3 H Neutrophils % 81.7 H Nucleated Red Blood Cells # 0.0 Nucleated Red Blood Cells % 0.0 Phosphorus Level 2.7 Platelet Count 220 Potassium Level 3.8 Red Blood Count 2.71 L Red Cell Distribution Width 23.8 H Sodium Level 132 L White Blood Count 11.4 H Medications Current Medications Levetiracetam/ Dextrose (Keppra Iv/D5W) 105 ml @ 420 mls/hr Q12 IVPB Last administered on 10/14/16at 10:10; Admin Dose 420 MLS/HR; Start 09/18/16 at 09:00 Collagenase (Santyl) 1 applic DAILY TOP Last administered on 10/14/16at 10:09; Admin Dose 1 APPLIC; Start 09/18/16 at 09:00 Acetaminophen (Tylenol Liquid) 650 mg Q4H PRN NGT PAIN AND OR ELEVATED TEMP Last administered on 09/29/16at 12:07; Admin Dose 650 MG; Start 09/18/16 at 08: 00 Bisacodyl (Dulcolax Supp) 10 mg DAILY PRN [place] CONSTIPATION; Start 09/18/16 at 08:00 Mupirocin (Bactroban) Apply to bilateral nares ... BID TOP Last administered on 10/14/16at 10:09; Admin Dose 1 APPLIC; Start 09/18/16 at 09:00 Mirtazapine (Remeron) 7.5 mg HS GTB Last administered on 10/13/16at 21:12; Admin Dose 7.5 MG; Start 09/18/16 at 21:00 Ondansetron HCl (Zofran Inj) 4 mg Q4H PRN IV NAUSEA AND/OR VOMITING; Start 08/24 at 08:00 Morphine Sulfate (morphine) 2 mg Q3H PRN IV PAIN LEVEL 6-10 Last administered on 09/28/16at 12:25; Admin Dose 2 MG; Start 09/18/16 at 08:00 Lorazepam (Ativan) 0.5 mg Q3H PRN IV ANXIETY; Start 09/18/16 at 08:00 Amikacin Sulfate (Amikacin Iv Per Pharmacy) PER PHARMACY DOSING NOTE XX ; Start 09/18/16 at 13:00 Vancomycin HCl (Vanco Iv Per Pharmacy) PER PHARMACY DOSING NOTE XX ; Start 08/24 at 13:00 IV Flush (NS 10 ml) 10 ml PRN PRN IV IV PROTOCOL Last administered on at 06:01; Admin Dose 10 ML; Start 09/18/16 at 13:00 Miscellaneous Information 1 ea NOTE XX ; Start 09/19/16 at 12:00 Glucose (Glutose) 15 gm Q15M PRN PO DECREASED GLUCOSE; Start 09/19/16 at 12:00 Glucose (Glutose) 22.5 gm Q15M PRN PO DECREASED GLUCOSE; Start 09/19/16 at 12: 00 Dextrose (D50w Syringe) 25 ml Q15M PRN IV DECREASED GLUCOSE; Start 09/19/16 at 12:00 Dextrose (D50w Syringe) 50 ml Q15M PRN IV DECREASED GLUCOSE; Start 09/19/16 at 12:00 Glucagon (Glucagen) 1 mg Q15M PRN IM DECREASED GLUCOSE; Start 09/19/16 at 12: 00 Glucose (Glutose) 15 gm Q15M PRN BUCCAL DECREASED GLUCOSE; Start 09/19/16 at 12:00 Lansoprazole (Prevacid) 30 mg DAILY@06 PO Last administered on 10/14/16at 05:48 ; Admin Dose 30 MG; Start 09/27/16 at 06:00 Apixaban (Eliquis) 2.5 mg BID GTB Last administered on 10/11/16at 21:07; Admin Dose 2.5 MG; Start 09/30/16 at 09:00; Status Future Hold Metoclopramide HCl (Reglan) 5 mg Q6 IV Last administered on 10/14/16at 05:48; Admin Dose 5 MG; Start 09/30/16 at 12:00 Metronidazole (Flagyl) 500 mg Q8 PO Last administered on 10/14/16at 01:21; Admin Dose 500 MG; Start 10/01/16 at 14:30 Sildenafil Citrate 20 mg 20 mg TID GTB Last administered on 10/14/16at 10:10; Admin Dose 20 MG; Start 10/08/16 at 10:45 Vancomycin HCl/ Sodium Chloride (Vancocin/NS) 250 ml @ 83.333 mls/ hr Q96H IVPB Last administered on 10/13/16at 13:49; Admin Dose 83.333 MLS/HR; Start 10/09/16 at 13:30 Pramoxine HCl (Proctofoam 1%) 1 applic TID [place] Last administered on 10/14/16at 10 :10; Admin Dose 1 APPLIC; Start 10/10/16 at 21:00 Assessment/Plan Chief Complaint/Hosp Course Additional Assessment/Plan IMPRESSION: 1. Ventilatory-dependent respiratory failure. 2. Status post septic shock. 3. Decubitus ulcers and polymicrobial sepsis. Persistent leukocytosis 4. Hypernatremia. 5. End-stage renal failure on hemodialysis. 6. Underlying seizure disorder. PLAN: 1. Vent support 2. BD's/CPT 3. am labs 4. TFs/free H20 5. Abx; f/u cx's Consider [facility] transfer Problems: JULIA HERNANDEZ MD, [facility] Oct 14, 2016 13:49
--- NOTE | 2016-10-14 16:14 | PN ---
DATE: 10/14/2016 CARDIOLOGY FOLLOWUP SUBJECTIVE: No new cardiac event. Patient with no chest pain or pressure. Remains in atrial fibri llation, heart rate under good control. Patient Rodriguez, status post tracheostomy, on the vent. MEDICATIONS: Reviewed. PHYSICAL EXAMINATION: VITAL SIGNS: Temperature 98.2, heart rate of 92, blood pressure of 111/56, respiratory rate of 16, saturating 99%. HEENT: Normocephalic, atraumatic. Pupils are equal Irregularly irregular. NECK: Status post tracheostomy, on the vent. CARDIOVASCULAR: Regular rate and rhythm. PULMONARY: With no wheezes heard with mild rhonchi at the base. GASTROINTESTINAL: Soft, status post PEG placement. No rebound. EXTREMITIES: With mild diffuse edema. NEUROLOGIC: Awake and alert. Responds appropriately. PSYCHIATRIC: Appears to be calm. LABORATORY: WBC of 11.4, hemoglobin 8.3, platelets 220, sodium 132, potassium 3.8, BUN of 32, creat inine 1.12, glucose of 96. Mag is 2. ASSESSMENT AND PLAN: 1. Hypoxemic respiratory failure. 2. Pulmonary hypertension. 3. Atrial fibrillation. 4. Status post sepsis. 5. Pneumonia. 6. Encephalopathy. 7. Possible AST. RECOMMENDATIONS: We will continue with the current cardiac care. The patient's Eliquis has been on hold due to her anemia. Resume ____ if okay with GI standpoint. Continue with telemetry monitori ng. Vent will be continued. Dictated By: AMANDA LARA/ARNOLDO Conf#: [id number] DID#: [id number]
[2016-10-14] MEDS ORDERED: LIDOCAINE 1% (MPF) 5 ML VIAL ONE (17:00)
--- NOTE | 2016-10-14 17:05 | RADRPT ---
PROCEDURE: Ultrasound guided paracentesis. CLINICAL INDICATION: Ascites and shortness of breath. COMPARISON: No prior studies are available for comparison. TECHNIQUE: The risks, benefits, and alternatives were explained to the patient, including but not limited to bl eeding, infection, pain, visceral or vascular damage, shock, and . The patient understood the risks and the alternatives and wished to proceed with the procedure. Informed written consent was o btained. A procedural time out was performed. The patient's name, date of , and procedure to b e performed were verified. Utilizing ultrasound guidance, optimal location for entry to the peritoneal cavity was ascertained. The overlying skin was prepped and draped in the usual sterile fashion. Approximately 10 ml of 1% Xylocaine was injected locally for pain control. Using ultrasound guidance, an 8 [place] catheter wa s introduced into the peritoneal cavity in the right lower quadrant without difficulty. FINDINGS: Initial images demonstrate ascites. Approximately 2.0 liters of serosanguineous fluid was aspirated and discarded. The patient tolerated the procedure well without complication. IMPRESSION: 1. Successful ultrasound-guided paracentesis. RPTAT: QQ .Joshua Cantu MD, Date Time Electronically viewed and signed by .Joshua Cantu MD, on 10/14/2016 17:05 .R/
[2016-10-14] MEDS: MIRTAZAPINE 15 MG TAB GTB SCH (22:46)
[2016-10-15] VITALS (33 sets, daily range): BP systolic 85–136; BP diastolic 44–65; PULSE 84–106; RESP 13–25
[2016-10-15] MEDS: METOCLOPRAMIDE 10 MG INJ IV SCH ×4 (00:09→18:00)
[2016-10-15] MEDS: IPRATROPIUM (HFA) 12.9 GM INHALER INH SCH ×6 (01:45→20:46)
[2016-10-15] MEDS: LEVALBUTEROL (HFA) 15 GM INHALER INH SCH ×6 (01:45→20:46)
[2016-10-15] MEDS: metroNIDAZOLE 500 MG TAB PO SCH ×3 (05:47→21:07)
[2016-10-15] MEDS: LANSOPRAZOLE 30 MG CAP PO SCH (05:47)
[2016-10-15] MEDS: BUDESONIDE (NEB) 0.5MG/2ML AMP HHN SCH ×2 (08:57→20:37)
[2016-10-15] MEDS: PRAMOXINE 1% 15 GM RECT FOAM PR SCH ×3 (09:00→21:09)
[2016-10-15] MEDS: LEVETIRACETAM IV 500 MG in DEXTROSE 5% 100 ML IVPB SCH ×2 (09:10→21:07)
[2016-10-15] MEDS: MUPIROCIN 2% 22 GM OINT TOP SCH ×2 (09:13→21:08)
[2016-10-15] MEDS: SILDENAFIL 20 MG TAB GTB SCH ×3 (09:16→21:00)
--- NOTE | 2016-10-15 09:42 | PN ---
DATE: 10/15/2016 CARDIOLOGY FOLLOWUP PROGRESS NOTE SUBJECTIVE: The patient remains in atrial fibrillation. Heart rate overall is under good control. Still status post tracheostomy on the vent. Nonverbal. No reported chest pain or pressure. MEDICATIONS: Reviewed. PHYSICAL EXAMINATION: VITAL SIGNS: Temperature 98.1, heart rate of 70, blood pressure 102/60, respiration rate of 16, sat urating 98% on the vent. HEENT: Normocephalic, atraumatic. Pupils are equal. NECK: Status post tracheostomy, on the vent. CARDIOVASCULAR: Regular rate and rhythm with systolic murmur, diastolic murmur. PULMONARY: Anteriorly with diffuse rhonchi. GASTROINTESTINAL: Soft. No rebound or guarding. Status PEG placement. EXTREMITIES: With trivial lower extremity edema. NEUROLOGIC: Awake, responds appropriately. ASSESSMENT AND PLAN: 1. Hypoxic respiratory failure, status post tracheostomy, vent dependent. 2. Atrial fibrillation, chronic. Currently, heart rate control. 3. Pulmonary hypertension. 4. Possible AST. 5. Status post sepsis and shock, currently blood pressure is improved. 6. Pneumonia. 7. Encephalopathy. RECOMMENDATIONS: We will continue with the current cardiac care for now. Respiratory care will be managed as per pulmonary. The patient is on dialysis schedule. Anticoagulation are still on hold. Resume once okay with GI and Internal Medicine. Dictated By: AMANDA LARA/ARNOLDO Conf#: [id number] DID#: [id number] CC: RUDDY GEE DO;*EndCC*
--- NOTE | 2016-10-15 10:02 | PN ---
DATE: 10/15/2016 SUBJECTIVE: The patient yesterday had paracentesis performed with 2 liters removed. No other acute events noted. No hemoptysis, hematemesis or hematochezia. The patient is pending dialysis today. OBJECTIVE: VITAL SIGNS: Blood pressure is 102/60, respirations 16, pulse 70, temperature is 98.1. I'S and O'S: 1500 in and no output. HEENT: Head is normocephalic. NECK: Shows trach. HEART: Regular rate. LUNGS: Show diminished breath sounds at the base. ABDOMEN: Soft, nontender to palpation. No rebound or guarding. EXTREMITIES: Negative for clubbing, cyanosis. No edema. DERMATOLOGIC: No rashes. MUSCULOSKELETAL: No joint effusions. NEUROLOGIC: No change in exam. MEDICATIONS: Patient's medication has been reviewed. LABORATORY DATA: Shows sodium 132, potassium 3.8, chloride 94, BUN 32, creatinine 1.12. White coun t 11.4, hemoglobin 8.3, hematocrit 26.6, platelet count 220. ASSESSMENT AND PLAN: 1. Sepsis secondary to pneumonia, decubitus wound. Continue current antibiotic regimen. Continue wound care. 2. End-stage renal disease. The patient is scheduled for hemodialysis today for 3 hours, 2 K bath, calcium 2.5. 3. Abdominal ascites, status post paracentesis. We will continue to monitor. 4. Hypernatremia. Continue free water restriction. 5. Pulmonary hypertension. Continue sildenafil. 6. Anemia. Continue to monitor H and H levels. Continue Epogen. 7. Seizure disorder. Continue Keppra. 8. Decubitus wound. Continue wound care. 9. Diabetes. Continue Accu-Cheks and sliding scale. 10. Dysphagia status post PEG. Continue tube feed. 11. Ventilatory dependent respiratory failure. Continue vent settings. Follow up with pulmonary. 12. Chronic encephalopathy. No change. 13. Atrial fibrillation, rate controlled. Continue medical management. 14. Status post fungal urinary tract infection. 15. History of cerebrovascular accident. 16. Gastrointestinal and deep venous thrombosis prophylaxis. Continue proton pump inhibitor and El iquis. Dictated By: RUDDY BUSTILLOS/ARNOLDO Conf#: [id number] DID#: [id number]
[2016-10-15] MEDS: COLLAGENASE 30 GM TUBE TOP SCH (11:14)
--- NOTE | 2016-10-15 14:28 | CONS ---
Date/Time of Note Date/Time of Note DATE: 10/15/16 TIME: 14:27 Consult Date/Type/Reason Admit Date/Time Sep 17, 2016 at 18:49 Type of Consultation: ID Subjective no acute changes, lying comfortably in bed, no fevers Objective Vital Signs Date Time Temp Pulse Resp B/P Pulse Ox O2 Delivery O2 Flow Rate FiO2 10/15/16 12:29 95 10/15/16 11:56 98.6 25 136/65 98 10/15/16 04:43 45 Intake and Output 10/14/16 10/14/16 10/15/16 15:00 23:00 07:00 Intake Total 200 ml 628 ml 700 ml Balance 200 ml 628 ml 700 ml Results/Medications Result Diagram: 10/14/16 0551 10/14/16 0551 Medications Current Medications Levetiracetam/ Dextrose (Keppra Iv/D5W) 105 ml @ 420 mls/hr Q12 IVPB Last administered on 10/15/16at 09:10; Admin Dose 420 MLS/HR; Start 09/18/16 at 09:00 Collagenase (Santyl) 1 applic DAILY TOP Last administered on 10/15/16at 11:14; Admin Dose 1 APPLIC; Start 09/18/16 at 09:00 Acetaminophen (Tylenol Liquid) 650 mg Q4H PRN NGT PAIN AND OR ELEVATED TEMP Last administered on 09/29/16at 12:07; Admin Dose 650 MG; Start 09/18/16 at 08: 00 Bisacodyl (Dulcolax Supp) 10 mg DAILY PRN [place] CONSTIPATION; Start 09/18/16 at 08:00 Mupirocin (Bactroban) Apply to bilateral nares ... BID TOP Last administered on 10/15/16at 09:13; Admin Dose 1 APPLIC; Start 09/18/16 at 09:00 Mirtazapine (Remeron) 7.5 mg HS GTB Last administered on 10/14/16at 22:46; Admin Dose 7.5 MG; Start 09/18/16 at 21:00 Ondansetron HCl (Zofran Inj) 4 mg Q4H PRN IV NAUSEA AND/OR VOMITING; Start 08/24 at 08:00 Morphine Sulfate (morphine) 2 mg Q3H PRN IV PAIN LEVEL 6-10 Last administered on 09/28/16at 12:25; Admin Dose 2 MG; Start 09/18/16 at 08:00 Lorazepam (Ativan) 0.5 mg Q3H PRN IV ANXIETY; Start 09/18/16 at 08:00 Amikacin Sulfate (Amikacin Iv Per Pharmacy) PER PHARMACY DOSING NOTE XX ; Start 09/18/16 at 13:00 Vancomycin HCl (Vanco Iv Per Pharmacy) PER PHARMACY DOSING NOTE XX ; Start 08/24 at 13:00 IV Flush (NS 10 ml) 10 ml PRN PRN IV IV PROTOCOL Last administered on at 06:01; Admin Dose 10 ML; Start 09/18/16 at 13:00 Miscellaneous Information 1 ea NOTE XX ; Start 09/19/16 at 12:00 Glucose (Glutose) 15 gm Q15M PRN PO DECREASED GLUCOSE; Start 09/19/16 at 12:00 Glucose (Glutose) 22.5 gm Q15M PRN PO DECREASED GLUCOSE; Start 09/19/16 at 12: 00 Dextrose (D50w Syringe) 25 ml Q15M PRN IV DECREASED GLUCOSE; Start 09/19/16 at 12:00 Dextrose (D50w Syringe) 50 ml Q15M PRN IV DECREASED GLUCOSE; Start 09/19/16 at 12:00 Glucagon (Glucagen) 1 mg Q15M PRN IM DECREASED GLUCOSE; Start 09/19/16 at 12: 00 Glucose (Glutose) 15 gm Q15M PRN BUCCAL DECREASED GLUCOSE; Start 09/19/16 at 12:00 Lansoprazole (Prevacid) 30 mg DAILY@06 PO Last administered on 10/15/16at 05:47 ; Admin Dose 30 MG; Start 09/27/16 at 06:00 Apixaban (Eliquis) 2.5 mg BID GTB Last administered on 10/11/16at 21:07; Admin Dose 2.5 MG; Start 09/30/16 at 09:00; Status Future Hold Metoclopramide HCl (Reglan) 5 mg Q6 IV Last administered on 10/15/16at 12:23; Admin Dose 5 MG; Start 09/30/16 at 12:00 Metronidazole (Flagyl) 500 mg Q8 PO Last administered on 10/15/16at 13:58; Admin Dose 500 MG; Start 11/23/16 at 14:30 Sildenafil Citrate 20 mg 20 mg TID GTB Last administered on 10/15/16at 12:23; Admin Dose 20 MG; Start 10/08/16 at 10:45 Vancomycin HCl/ Sodium Chloride (Vancocin/NS) 250 ml @ 83.333 mls/ hr Q96H IVPB Last administered on 10/13/16at 13:49; Admin Dose 83.333 MLS/HR; Start 10/09/16 at 13:30 Pramoxine HCl (Proctofoam 1%) 1 applic TID ME Last administered on 10/15/16at 12 :35; Admin Dose 1 APPLIC; Start 10/10/16 at 21:00 Assessment/Plan Chief Complaint/Hosp Course MICROBIOLOGY: Endotracheal aspirate growing multidrug resistant Pseudomonas. Blood cultures negative, wound culture of her sacrum growing MRSA. Urine culture growing Kelly glabrata. INDWELLING: trach, PEG, RIJ Perm-A-Cath, Left upper extremity PICC line placed on 09/18/2016. ANTIMICROBIALS: 1. Amikacin. 2. Vancomycin. 3. Flagyl PHYSICAL EXAMINATION: GENERAL: Fragile, chronically ill-appearing, elderly woman who is lying comfortably in bed. HEENT: Head atraumatic, normocephalic. Sclerae anicteric. Buccal mucosa dry. NECK: Supple. Tracheostomy present. CHEST: Rise symmetrical. Breath sounds diminished to bases. HEART: S1, S2. ABDOMEN: Soft, bowel tones present. EXTREMITIES: Without cyanosis. ASSESSMENT: 1. Ongoing sepsis, status post shock. 2. S/p healthcare-associated pneumonia with parapneumonic pleural effusion and sputum culture growing multi-drug resistant Pseudomonas aeruginosa. 3. Methicillin-resistant Staphylococcus aureus infected decubitus. 4. GT site cellulitis==> GI follows 4. S/p kelly glabrata urinary tract infection. 5. Methicillin-resistant Staphylococcus aureus nares colonization. 6. End-stage renal disease, hemodialysis dependent. 7. History of cerebrovascular accident. 8. Ascites==> s/p paracentesis 09/24, 10/14 9. Sacral decub, poss OM 10. ALLERGY TO PENICILLIN AND SULFA. PLAN: Clinically unchanged, no fevers, continue abx. GT site care per GI rec-s, vent per pulmonary, f/u ascitic fluid cx DW staff Problems: RAISSA ROA NP Oct 15, 2016 14:28
[2016-10-15] MEDS ORDERED: HEPARIN 1000 UNITS/ML 10 ML INJ CATHETER SCH (18:00)
[2016-10-15] MEDS ORDERED: ALBUMIN HUMAN 25% 100 ML IV PRN (18:00)
[2016-10-15] MEDS ORDERED: (Nursing Note) XX SCH (19:00)
--- NOTE | 2016-10-15 19:25 | CONS ---
Date/Time of Note Date/Time of Note DATE: 10/15/16 TIME: 19:24 Assessment/Plan Assessment/Plan Additional Assessment/Plan ASSESSMENT: 1. Renal failure on dialysis. 2. Vent dependent respiratory failure. 3. Chronic obstructive pulmonary disease. 4. Atrial fibrillation. 5. Ascites, successful paracentesis done. 6. Dysphagia 7. G-tube clean,no leakage,tolerating feeding 8. Anemia: stable, likely from anemia of chronic disease 9. Status post septic shock. 10. Diabetes mellitus. 11. Decubitus ulcer. 12. Congestive heart failure. 13. Seizure disorder. 14. pneumonia,s/p sepsis 15.pulmonary hypertension 16 persistent leucocytosis,better 17.pressure ulcer g tube site Plan continue antibiotics per ID Reglan for gastroparesis Bactroban to g tube site. Routine G-tube site care no dressing around g tube site.which is clean paracentesis need basis Consultation Date/Type/Reason Admit Date/Time Sep 17, 2016 at 18:49 Type of Consultation: ID [id number] HR Interval Summary Constitutional: improved, no complaints Exam/Review of Systems Vital Signs Vitals Vital Signs Date Time Temp Pulse Resp B/P Pulse Ox O2 Delivery O2 Flow Rate FiO2 10/15/16 18:15 106 10/15/16 17:05 20 98 45 10/15/16 15:21 98.3 113/59 Intake and Output 10/14/16 10/14/16 10/15/16 15:00 23:00 07:00 Intake Total 200 ml 628 ml 700 ml Balance 200 ml 628 ml 700 ml Exam Constitutional: alert, oriented, well developed Psych: nl mood/affect, no complaints Head: atraumatic, normocephalic Eyes: EOMI, PERRL, nl conjunctiva, nl lids, nl sclera ENMT: nl external ears & nose, nl lips & teeth, nl nasal mucosa & septum Neck: non-tender, supple Respiratory: clear to auscultation, normal air movement Cardiovascular: nl pulses, regular rate and rhythm Gastrointestinal: nl liver, spleen, non-tender, soft Musculoskeletal: nl extremities to inspection, nl gait and stance Extremities: normal pulses Neurological: DOCTOR OF NAPRAPATHY II-XII intact, nl mental status, nl speech, nl strength Skin: nl turgor, No rash or lesions Lymph: nl lymph nodes Results Result Diagram: 10/14/16 0551 10/14/16 0551 Medications Medications Current Medications Levetiracetam/ Dextrose (Keppra Iv/D5W) 105 ml @ 420 mls/hr Q12 IVPB Last administered on 10/15/16at 09:10; Admin Dose 420 MLS/HR; Start 09/18/16 at 09:00 Collagenase (Santyl) 1 applic DAILY TOP Last administered on 10/15/16at 11:14; Admin Dose 1 APPLIC; Start 09/18/16 at 09:00 Acetaminophen (Tylenol Liquid) 650 mg Q4H PRN NGT PAIN AND OR ELEVATED TEMP Last administered on 09/29/16at 12:07; Admin Dose 650 MG; Start 09/18/16 at 08: 00 Bisacodyl (Dulcolax Supp) 10 mg DAILY PRN [place] CONSTIPATION; Start 09/18/16 at 08:00 Mupirocin (Bactroban) Apply to bilateral nares ... BID TOP Last administered on 10/15/16at 09:13; Admin Dose 1 APPLIC; Start 09/18/16 at 09:00 Mirtazapine (Remeron) 7.5 mg HS GTB Last administered on 10/14/16at 22:46; Admin Dose 7.5 MG; Start 09/18/16 at 21:00 Ondansetron HCl (Zofran Inj) 4 mg Q4H PRN IV NAUSEA AND/OR VOMITING; Start 08/24 at 08:00 Morphine Sulfate (morphine) 2 mg Q3H PRN IV PAIN LEVEL 6-10 Last administered on 09/28/16at 12:25; Admin Dose 2 MG; Start 09/18/16 at 08:00 Lorazepam (Ativan) 0.5 mg Q3H PRN IV ANXIETY; Start 09/18/16 at 08:00 Amikacin Sulfate (Amikacin Iv Per Pharmacy) PER PHARMACY DOSING NOTE XX ; Start 09/18/16 at 13:00 Vancomycin HCl (Vanco Iv Per Pharmacy) PER PHARMACY DOSING NOTE XX ; Start 08/24 at 13:00 IV Flush (NS 10 ml) 10 ml PRN PRN IV IV PROTOCOL Last administered on at 06:01; Admin Dose 10 ML; Start 09/18/16 at 13:00 Miscellaneous Information 1 ea NOTE XX ; Start 09/19/16 at 12:00 Glucose (Glutose) 15 gm Q15M PRN PO DECREASED GLUCOSE; Start 09/19/16 at 12:00 Glucose (Glutose) 22.5 gm Q15M PRN PO DECREASED GLUCOSE; Start 09/19/16 at 12: 00 Dextrose (D50w Syringe) 25 ml Q15M PRN IV DECREASED GLUCOSE; Start 09/19/16 at 12:00 Dextrose (D50w Syringe) 50 ml Q15M PRN IV DECREASED GLUCOSE; Start 09/19/16 at 12:00 Glucagon (Glucagen) 1 mg Q15M PRN IM DECREASED GLUCOSE; Start 09/19/16 at 12: 00 Glucose (Glutose) 15 gm Q15M PRN BUCCAL DECREASED GLUCOSE; Start 09/19/16 at 12:00 Lansoprazole (Prevacid) 30 mg DAILY@06 PO Last administered on 10/15/16at 05:47 ; Admin Dose 30 MG; Start 09/27/16 at 06:00 Apixaban (Eliquis) 2.5 mg BID GTB Last administered on 10/11/16at 21:07; Admin Dose 2.5 MG; Start 09/30/16 at 09:00; Status Future Hold Metoclopramide HCl (Reglan) 5 mg Q6 IV Last administered on 10/15/16at 12:23; Admin Dose 5 MG; Start 09/30/16 at 12:00 Metronidazole (Flagyl) 500 mg Q8 PO Last administered on 10/15/16at 13:58; Admin Dose 500 MG; Start 10/01/16 at 14:30 Sildenafil Citrate 20 mg 20 mg TID GTB Last administered on 10/15/16at 12:23; Admin Dose 20 MG; Start 10/08/16 at 10:45 Vancomycin HCl/ Sodium Chloride (Vancocin/NS) 250 ml @ 83.333 mls/ hr Q96H IVPB Last administered on 10/13/16at 13:49; Admin Dose 83.333 MLS/HR; Start 10/09/16 at 13:30 Pramoxine HCl (Proctofoam 1%) 1 applic TID [place] Last administered on 10/15/16at 12 :35; Admin Dose 1 APPLIC; Start 10/10/16 at 21:00 Miscellaneous Information 1 ea NOTE XX ; Start 10/15/16 at 19:00; Stop 10/15/16 at 23:45 ANNABEL CISSE MD Oct 15, 2016 19:25
[2016-10-15] MEDS: MIRTAZAPINE 15 MG TAB GTB SCH (21:07)
[2016-10-15] MEDS: EPOETIN 10000 UNITS/1 ML INJ (ESRD) SC SCH (21:11)
[2016-10-15] MEDS: SOD CHLORIDE 0.9% IVPB SCH (21:47)
[2016-10-15] MEDS: AMIKACIN IVPB SCH (21:47)
[2016-10-16] VITALS (22 sets, daily range): BP systolic 100–115; BP diastolic 50–55; PULSE 79–93; RESP 13–21
[2016-10-16] MEDS: METOCLOPRAMIDE 10 MG INJ IV SCH ×5 (00:09→23:04)
[2016-10-16] MEDS: LEVALBUTEROL (HFA) 15 GM INHALER INH SCH ×6 (01:33→21:11)
[2016-10-16] MEDS: IPRATROPIUM (HFA) 12.9 GM INHALER INH SCH ×6 (01:33→21:11)
[2016-10-16] MEDS: LANSOPRAZOLE 30 MG CAP PO SCH (05:41)
[2016-10-16] MEDS: metroNIDAZOLE 500 MG TAB PO SCH ×3 (05:41→20:09)
[2016-10-16] MEDS: MUPIROCIN 2% 22 GM OINT TOP SCH ×2 (09:07→20:09)
[2016-10-16] MEDS: COLLAGENASE 30 GM TUBE TOP SCH (09:07)
[2016-10-16] MEDS: APIXABAN 5 MG TABLET GTB SCH ×2 (09:08→20:09)
[2016-10-16] MEDS: PRAMOXINE 1% 15 GM RECT FOAM PR SCH ×3 (09:08→20:08)
[2016-10-16] MEDS: SILDENAFIL 20 MG TAB GTB SCH ×3 (09:09→20:09)
[2016-10-16] MEDS: LEVETIRACETAM IV 500 MG in DEXTROSE 5% 100 ML IVPB SCH ×2 (09:21→20:08)
[2016-10-16] MEDS: BUDESONIDE (NEB) 0.5MG/2ML AMP HHN SCH ×2 (09:29→19:51)
--- NOTE | 2016-10-16 10:17 | PN ---
DATE: 10/16/2016 SUBJECTIVE: The patient is stable, had hemodialysis yesterday, tolerated well with approximately 1. 2 liters removed. No other acute events noted. No hemoptysis, hematemesis or hematochezia. OBJECTIVE: VITAL SIGNS: Blood pressure 104/51, respirations 18, pulse 98, temperature 97.8. HEENT: Head is normocephalic. NECK: Supple. HEART: Regular rate. LUNGS: Show diminished breath sounds at base. ABDOMEN: Soft, nontender to palpation without rebound or guarding. EXTREMITIES: Negative for clubbing, cyanosis, no edema. DERMATOLOGIC: No rashes. MUSCULOSKELETAL: No joint effusions. NEUROLOGIC: No change in exam. MEDICATIONS: The patient's medications have been reviewed. LABORATORY DATA: Pending. ASSESSMENT AND PLAN: 1. Sepsis secondary to pneumonia, decubitus wound, continue current antibiotic regimen. 2. End-stage renal disease. The patient had hemodialysis yesterday, tolerated well. Anticipate di alysis tomorrow. 3. Abdominal ascites, status post paracentesis. Continue to monitor. 4. Hyponatremia. Continue free water restriction. 5. Pulmonary hypertension. Continue sildenafil. 6. Continue to monitor H and H levels. Continue Epogen. 7. Seizure disorder. Continue Keppra. 8. Decubitus wound. Continue wound care. 9. Diabetes. Continue Accu-Cheks and sliding scale. 10. Dysphagia status post PEG tube, tube feeding. 11. Ventilator dependent respiratory failure. Vent settings have been reviewed. [facility] 12. Encephalopathy. No change. 13. Atrial fibrillation, rate controlled. Continue medical management. 14. Gastrointestinal and deep venous thrombosis prophylaxis. Continue proton pump inhibitor and El iquis. Dictated By: RUDDY BUSTILLOS/ARNOLDO Conf#: [id number] DID#: [id number]
[2016-10-16 10:48] LABS: BASOPHILS % 0.2 % (0.0-2.0); EOSINOPHILS % 0.1 % (0.0-7.0); HEMATOCRIT 27.7 % (37.0-47.0); HEMOGLOBIN 8.8 g/dl (12.0-16.0); LYMPHOCYTES # 1.7 10^3/ul (0.8-2.9); LYMPHOCYTES % 11.8 % (15.0-51.0); MEAN CORPUSCULAR HEMOGLOBIN 31.3 pg (29.0-33.0); MEAN CORPUSCULAR HGB CONC 31.8 g/dl (32.0-37.0); MEAN CORPUSCULAR VOLUME 98.3 fl (82.0-101.0); MONOCYTES % 6.8 % (0.0-11.0); NEUTROPHILS % 81.1 % (39.0-77.0); PLATELET COUNT 245 10^3/UL (140-440); RED BLOOD COUNT 2.82 10^6/ul (4.20-5.40); RED CELL DISTRIBUTION WIDTH 22.8 % (11.5-14.5); UNCORRECTED WBC 14.8 10^3/ul (4.8-10.8); WHITE BLOOD COUNT 14.8 10^3/ul (4.8-10.8)
[2016-10-16 10:53] LABS: CONDITION 1; LH ANALYZER COMMENTS 1
[2016-10-16 10:56] LABS: POTASSIUM 4.3 mmol/L (3.5-5.1)
[2016-10-16 10:58] LABS: CREATININE 1.28 mg/dl (0.44-1.00)
[2016-10-16 10:59] LABS: PHOSPHORUS 3.1 mg/dl (2.5-4.9)
[2016-10-16 11:00] LABS: MAGNESIUM 2.1 mg/dl (1.7-2.5)
--- NOTE | 2016-10-16 13:47 | CONS ---
Date/Time of Note Date/Time of Note DATE: 10/16/16 TIME: 13:46 Consult Date/Type/Reason Admit Date/Time Sep 17, 2016 at 18:49 Type of Consultation: ID Subjective no acute changes, no fevers, looks comfortable Objective Vital Signs Date Time Temp Pulse Resp B/P Pulse Ox O2 Delivery O2 Flow Rate FiO2 10/16/16 13:00 93 16 98 45 10/16/16 09:32 Nasal Cannula 10/16/16 07:54 97.8 104/51 Intake and Output 10/15/16 10/15/16 10/16/16 15:00 23:00 07:00 Intake Total 1405.9 ml 650 ml Output Total 1700 ml Balance -294.1 ml 650 ml Results/Medications Result Diagram: 10/16/16 1010 10/16/16 1010 Results 24 hrs Laboratory Tests Test 10/16/16 10:10 Anion Gap 10 Basophils # 0.0 Basophils % 0.2 Blood Morphology Comment Blood Urea Nitrogen 38 H Calcium Level 8.0 L Carbon Dioxide Level 31 Chloride Level 94 L Creatinine 1.28 H Eosinophils # 0.0 Eosinophils % 0.1 Glucose Level 109 Hematocrit 27.7 L Hemoglobin 8.8 L Lymphocytes # 1.7 Lymphocytes % 11.8 L Magnesium Level 2.1 Mean Corpuscular Hemoglobin 31.3 Mean Corpuscular Hemoglobin Concent 31.8 L Mean Corpuscular Volume 98.3 Mean Platelet Volume 8.0 Monocytes # 1.0 H Monocytes % 6.8 Neutrophils # 12.0 H Neutrophils % 81.1 H Nucleated Red Blood Cells # 0.0 Nucleated Red Blood Cells % 0.0 Phosphorus Level 3.1 Platelet Count 245 Potassium Level 4.3 Red Blood Count 2.82 L Red Cell Distribution Width 22.8 H Sodium Level 131 L White Blood Count 14.8 #H Medications Current Medications Levetiracetam/ Dextrose (Keppra Iv/D5W) 105 ml @ 420 mls/hr Q12 IVPB Last administered on 10/16/16at 09:21; Admin Dose 420 MLS/HR; Start 09/18/16 at 09:00 Collagenase (Santyl) 1 applic DAILY TOP Last administered on 10/16/16at 09:07; Admin Dose 1 APPLIC; Start 09/18/16 at 09:00 Acetaminophen (Tylenol Liquid) 650 mg Q4H PRN NGT PAIN AND OR ELEVATED TEMP Last administered on 09/29/16at 12:07; Admin Dose 650 MG; Start 09/18/16 at 08: 00 Bisacodyl (Dulcolax Supp) 10 mg DAILY PRN [place] CONSTIPATION; Start 09/18/16 at 08:00 Mupirocin (Bactroban) Apply to bilateral nares ... BID TOP Last administered on 10/16/16at 09:07; Admin Dose 1 APPLIC; Start 09/18/16 at 09:00 Mirtazapine (Remeron) 7.5 mg HS GTB Last administered on 10/15/16at 21:07; Admin Dose 7.5 MG; Start 09/18/16 at 21:00 Ondansetron HCl (Zofran Inj) 4 mg Q4H PRN IV NAUSEA AND/OR VOMITING; Start 08/24 at 08:00 Morphine Sulfate (morphine) 2 mg Q3H PRN IV PAIN LEVEL 6-10 Last administered on 09/28/16at 12:25; Admin Dose 2 MG; Start 09/18/16 at 08:00 Lorazepam (Ativan) 0.5 mg Q3H PRN IV ANXIETY; Start 09/18/16 at 08:00 Amikacin Sulfate (Amikacin Iv Per Pharmacy) PER PHARMACY DOSING NOTE XX ; Start 09/18/16 at 13:00 Vancomycin HCl (Vanco Iv Per Pharmacy) PER PHARMACY DOSING NOTE XX ; Start 08/24 at 13:00 IV Flush (NS 10 ml) 10 ml PRN PRN IV IV PROTOCOL Last administered on at 06:01; Admin Dose 10 ML; Start 09/18/16 at 13:00 Miscellaneous Information 1 ea NOTE XX ; Start 09/19/16 at 12:00 Glucose (Glutose) 15 gm Q15M PRN PO DECREASED GLUCOSE; Start 09/19/16 at 12:00 Glucose (Glutose) 22.5 gm Q15M PRN PO DECREASED GLUCOSE; Start 09/19/16 at 12: 00 Dextrose (D50w Syringe) 25 ml Q15M PRN IV DECREASED GLUCOSE; Start 09/19/16 at 12:00 Dextrose (D50w Syringe) 50 ml Q15M PRN IV DECREASED GLUCOSE; Start 09/19/16 at 12:00 Glucagon (Glucagen) 1 mg Q15M PRN IM DECREASED GLUCOSE; Start 09/19/16 at 12: 00 Glucose (Glutose) 15 gm Q15M PRN BUCCAL DECREASED GLUCOSE; Start 09/19/16 at 12:00 Lansoprazole (Prevacid) 30 mg DAILY@06 PO Last administered on 10/16/16 05:41 ; Admin Dose 30 MG; Start 09/27/16 at 06:00 Apixaban (Eliquis) 2.5 mg BID GTB Last administered on 10/16/16 09:08; Admin Dose 2.5 MG; Start 09/30/16 at 09:00; Status Future hold Metoclopramide HCl (Reglan) 5 mg Q6 IV Last administered on 10/16/16 12:35; Admin Dose 5 MG; Start 09/30/16 at 12:00 Metronidazole (Flagyl) 500 mg Q8 PO Last administered on 10/16/16 13:42; Admin Dose 500 MG; Start 10/01/16 at 14:30 Sildenafil Citrate 20 mg 20 mg TID GTB Last administered on 10/16/16 12:37; Admin Dose 20 MG; Start 10/08/16 at 10:45 Vancomycin HCl/ Sodium Chloride (Vancocin/NS) 250 ml @ 83.333 mls/ hr Q96H IVPB Last administered on 10/13/16 13:49; Admin Dose 83.333 MLS/HR; Start 10/09/16 at 13:30 Pramoxine HCl (Proctofoam 1%) 1 applic TID [place] Last administered on 10/16/16 12 :38; Admin Dose 1 APPLIC; Start 10/10/16 at 21:00 Assessment/Plan Chief Complaint/Hosp Course MICROBIOLOGY: Endotracheal aspirate growing multidrug resistant Pseudomonas. Blood cultures negative, wound culture of her sacrum growing MRSA. Urine culture growing Kelly glabrata. INDWELLING: trach, PEG, RIJ Perm-A-Cath, Left upper extremity PICC line placed on 09/18/2016. ANTIMICROBIALS: 1. Amikacin. 2. Vancomycin. 3. Flagyl PHYSICAL EXAMINATION: GENERAL: Fragile, chronically ill-appearing, elderly woman who is lying comfortably in bed. HEENT: Head atraumatic, normocephalic. Sclerae anicteric. Buccal mucosa dry. NECK: Supple. Tracheostomy present. CHEST: Rise symmetrical. Breath sounds diminished to bases. HEART: S1, S2. ABDOMEN: Soft, bowel tones present. EXTREMITIES: Without cyanosis. ASSESSMENT: 1. Ongoing sepsis, status post shock. 2. S/p healthcare-associated pneumonia with parapneumonic pleural effusion and sputum culture growing multi-drug resistant Pseudomonas aeruginosa. 3. Methicillin-resistant Staphylococcus aureus infected decubitus. 4. GT site cellulitis==> GI follows 4. S/p kelly glabrata urinary tract infection. 5. Methicillin-resistant Staphylococcus aureus nares colonization. 6. End-stage renal disease, hemodialysis dependent. 7. History of cerebrovascular accident. 8. Ascites==> s/p paracentesis 09/24, 10/14 9. Sacral decub, poss OM 10. ALLERGY TO PENICILLIN AND SULFA. PLAN: Clinically unchanged, no fevers, continue abx. GT site care per GI rec-s, vent per pulmonary, f/u ascitic fluid cx [facility] staff Problems: RAISSA ROA NP Oct 16, 2016 13:47
--- NOTE | 2016-10-16 14:08 | PN ---
DATE: 10/16/2016 CARDIOLOGY FOLLOWUP PROGRESS NOTE SUBJECTIVE: Discussed with the staff. Rhythm strip reviewed. The patient remains in atrial fibrill ation. The patient's heart rate remains in good control. The patient denies any chest pain or pres sure, but remains status post trach, on the vent. MEDICATIONS: Reviewed. PHYSICAL EXAMINATION: VITAL SIGNS: Temperature 97.8, heart rate of 88, blood pressure 104/51, respiratory rate of 20, sat ting 97%. HEENT: Normocephalic, atraumatic. Pupils are equal. NECK: Status post tracheostomy, on the vent. CARDIOVASCULAR: Irregularly irregular. Systolic murmur. PULMONARY: With mild diffuse rhonchi. GASTROINTESTINAL: Soft, nontender. EXTREMITIES: With trivial lower extremity edema. NEUROLOGIC: Is awake; responds appropriately. PSYCHIATRIC: Appears to be calm and very pleasant. LABORATORY: WBC of 14.8, hemoglobin 8.8, platelets of 245. Sodium 131, potassium 4.3, BUN of 38, c reatinine 0.28, glucose 109. ASSESSMENT AND PLAN: 1. Hypoxemic respiratory failure, status post tracheostomy, ventilator dependent. 2. Atrial fibrillation, chronic. 3. Abdominal ascites, status post paracentesis. 4. Pulmonary hypertension. 5. Anemia. 6. History of seizure disorder. 7. Decubitus ulcer. 8. Diabetes. 9. Renal failure on dialysis. RECOMMENDATIONS: The patient's heart rate is under good control. Continue vent support. Dialysis as per renal will be continued. Antibiotic as per ID. Continue to monitor on telemetry. Dictated By: AMANDA LARA/ARNOLDO Conf#: [id number] DID#: [id number] CC: RUDDY GEE DO; EWA MELISSA DO;*EndCC*
--- NOTE | 2016-10-16 18:41 | CONS ---
Date/Time of Note Date/Time of Note DATE: 10/16/16 TIME: 18:40 Assessment/Plan Assessment/Plan Additional Assessment/Plan Additional Assessment/Plan ASSESSMENT: 1. Renal failure on dialysis. 2. Vent dependent respiratory failure. 3. Chronic obstructive pulmonary disease. 4. Atrial fibrillation. 5. Ascites, successful paracentesis done. 6. Dysphagia 7. G-tube clean,no leakage,tolerating feeding 8. Anemia: stable, likely from anemia of chronic disease 9. Status post septic shock. 10. Diabetes mellitus. 11. Decubitus ulcer. 12. Congestive heart failure. 13. Seizure disorder. 14. pneumonia,s/p sepsis 15.pulmonary hypertension 16 persistent leucocytosis,better 17.pressure ulcer g tube site Plan continue antibiotics per ID Reglan for gastroparesis Bactroban to g tube site. Routine G-tube site care no dressing around g tube site.which is clean paracentesis done 2.5 liter removed. Consultation Date/Type/Reason Admit Date/Time Sep 17, 2016 at 18:49 Type of Consultation: ID [id number] HR Interval Summary Constitutional: improved, no complaints Exam/Review of Systems Vital Signs Vitals Vital Signs Date Time Temp Pulse Resp B/P Pulse Ox O2 Delivery O2 Flow Rate FiO2 10/16/16 17:20 86 17 97 45 10/16/16 09:32 Nasal Cannula 10/16/16 07:54 97.8 104/51 Intake and Output 10/15/16 10/15/16 10/16/16 15:00 23:00 07:00 Intake Total 1405.9 ml 650 ml Output Total 1700 ml Balance -294.1 ml 650 ml Exam Constitutional: alert, oriented, well developed Psych: nl mood/affect, no complaints Head: atraumatic, normocephalic Eyes: EOMI, PERRL, nl conjunctiva, nl lids, nl sclera ENMT: nl external ears & nose, nl lips & teeth, nl nasal mucosa & septum Neck: non-tender, supple Respiratory: clear to auscultation, normal air movement Cardiovascular: nl pulses, regular rate and rhythm Gastrointestinal: nl liver, spleen, non-tender, soft Musculoskeletal: nl extremities to inspection, nl gait and stance Extremities: normal pulses 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, nl mental status, nl speech, nl strength Skin: nl turgor, No rash or lesions Lymph: nl lymph nodes Results Result Diagram: 10/16/16 1010 10/16/16 1010 Results 24 hrs Laboratory Tests Test 10/16/16 10:10 Anion Gap 10 Basophils # 0.0 Basophils % 0.2 Blood Morphology Comment Blood Urea Nitrogen 38 H Calcium Level 8.0 L Carbon Dioxide Level 31 Chloride Level 94 L Creatinine 1.28 H Eosinophils # 0.0 Eosinophils % 0.1 Glucose Level 109 Hematocrit 27.7 L Hemoglobin 8.8 L Lymphocytes # 1.7 Lymphocytes % 11.8 L Magnesium Level 2.1 Mean Corpuscular Hemoglobin 31.3 Mean Corpuscular Hemoglobin Concent 31.8 L Mean Corpuscular Volume 98.3 Mean Platelet Volume 8.0 Monocytes # 1.0 H Monocytes % 6.8 Neutrophils # 12.0 H Neutrophils % 81.1 H Nucleated Red Blood Cells # 0.0 Nucleated Red Blood Cells % 0.0 Phosphorus Level 3.1 Platelet Count 245 Potassium Level 4.3 Red Blood Count 2.82 L Red Cell Distribution Width 22.8 H Sodium Level 131 L White Blood Count 14.8 #H Medications Medications Current Medications Levetiracetam/ Dextrose (Keppra Iv/D5W) 105 ml @ 420 mls/hr Q12 IVPB Last administered on 10/16/16at 09:21; Admin Dose 420 MLS/HR; Start 09/18/16 at 09:00 Collagenase (Santyl) 1 applic DAILY TOP Last administered on 10/16/16at 09:07; Admin Dose 1 APPLIC; Start 09/18/16 at 09:00 Acetaminophen (Tylenol Liquid) 650 mg Q4H PRN NGT PAIN AND OR ELEVATED TEMP Last administered on 09/29/16at 12:07; Admin Dose 650 MG; Start 09/18/16 at 08: 00 Bisacodyl (Dulcolax Supp) 10 mg DAILY PRN [place] CONSTIPATION; Start 09/18/16 at 08:00 Mupirocin (Bactroban) Apply to bilateral nares ... BID TOP Last administered on 10/16/16 09:07; Admin Dose 1 APPLIC; Start 09/18/16 at 09:00 Mirtazapine (Remeron) 7.5 mg HS GTB Last administered on 10/15/16at 21:07; Admin Dose 7.5 MG; Start 09/18/16 at 21:00 Ondansetron HCl (Zofran Inj) 4 mg Q4H PRN IV NAUSEA AND/OR VOMITING; Start 08/24 at 08:00 Morphine Sulfate (morphine) 2 mg Q3H PRN IV PAIN LEVEL 6-10 Last administered on 09/28/16at 12:25; Admin Dose 2 MG; Start 09/18/16 at 08:00 Lorazepam (Ativan) 0.5 mg Q3H PRN IV ANXIETY; Start 09/18/16 at 08:00 Amikacin Sulfate (Amikacin Iv Per Pharmacy) PER PHARMACY DOSING NOTE XX ; Start 09/18/16 at 13:00 Vancomycin HCl (Vanco Iv Per Pharmacy) PER PHARMACY DOSING NOTE XX ; Start 08/24 at 13:00 IV Flush (NS 10 ml) 10 ml PRN PRN IV IV PROTOCOL Last administered on at 06:01; Admin Dose 10 ML; Start 09/18/16 at 13:00 Miscellaneous Information 1 ea NOTE XX ; Start 09/19/16 at 12:00 Glucose (Glutose) 15 gm Q15M PRN PO DECREASED GLUCOSE; Start 09/19/16 at 12:00 Glucose (Glutose) 22.5 gm Q15M PRN PO DECREASED GLUCOSE; Start 09/19/16 at 12: 00 Dextrose (D50w Syringe) 25 ml Q15M PRN IV DECREASED GLUCOSE; Start 09/19/16 at 12:00 Dextrose (D50w Syringe) 50 ml Q15M PRN IV DECREASED GLUCOSE; Start 09/19/16 at 12:00 Glucagon (Glucagen) 1 mg Q15M PRN IM DECREASED GLUCOSE; Start 09/19/16 at 12: 00 Glucose (Glutose) 15 gm Q15M PRN BUCCAL DECREASED GLUCOSE; Start 09/19/16 at 12:00 Lansoprazole (Prevacid) 30 mg DAILY@06 PO Last administered on 10/16/16at 05:41 ; Admin Dose 30 MG; Start 09/27/16 at 06:00 Apixaban (Eliquis) 2.5 mg BID GTB Last administered on 10/16/16at 09:08; Admin Dose 2.5 MG; Start 09/30/16 at 09:00; Status Future hold Metoclopramide HCl (Reglan) 5 mg Q6 IV Last administered on 10/16/16at 12:35; Admin Dose 5 MG; Start 09/30/16 at 12:00 Metronidazole (Flagyl) 500 mg Q8 PO Last administered on 10/16/16 13:42; Admin Dose 500 MG; Start 10/01/16 at 14:30 Sildenafil Citrate 20 mg 20 mg TID GTB Last administered on 10/16/16 12:37; Admin Dose 20 MG; Start 10/08/16 at 10:45 Vancomycin HCl/ Sodium Chloride (Vancocin/NS) 250 ml @ 83.333 mls/ hr Q96H IVPB Last administered on 10/13/16 13:49; Admin Dose 83.333 MLS/HR; Start 10/09/16 at 13:30 Pramoxine HCl (Proctofoam 1%) 1 applic TID [place] Last administered on 10/16/16at 12 :38; Admin Dose 1 APPLIC; Start 10/10/16 at 21:00 ANNABEL CISSE MD Oct 16, 2016 18:41
[2016-10-16] MEDS: MIRTAZAPINE 15 MG TAB GTB SCH (20:09)
[2016-10-17] VITALS (32 sets, daily range): BP systolic 93–112; BP diastolic 48–59; PULSE 83–104; RESP 13–22
[2016-10-17] MEDS: IPRATROPIUM (HFA) 12.9 GM INHALER INH SCH ×6 (01:03→20:45)
[2016-10-17] MEDS: LEVALBUTEROL (HFA) 15 GM INHALER INH SCH ×6 (01:03→20:45)
[2016-10-17] MEDS: metroNIDAZOLE 500 MG TAB PO SCH ×3 (05:09→20:28)
[2016-10-17] MEDS: LANSOPRAZOLE 30 MG CAP PO SCH (05:09)
[2016-10-17] MEDS: METOCLOPRAMIDE 10 MG INJ IV SCH ×4 (05:09→22:59)
[2016-10-17 07:02] LABS: BASOPHIL # 0.1 10^3/ul (0.0-0.1); BASOPHILS % 0.6 % (0.0-2.0); EOSINOPHILS % 0.2 % (0.0-7.0); HEMATOCRIT 27.4 % (37.0-47.0); HEMOGLOBIN 8.9 g/dl (12.0-16.0); LYMPHOCYTES # 1.3 10^3/ul (0.8-2.9); LYMPHOCYTES % 10.1 % (15.0-51.0); MEAN CORPUSCULAR HEMOGLOBIN 31.6 pg (29.0-33.0); MEAN CORPUSCULAR HGB CONC 32.3 g/dl (32.0-37.0); MEAN CORPUSCULAR VOLUME 97.8 fl (82.0-101.0); MEAN PLATELET VOLUME 7.9 fl (7.4-10.4); MONOCYTES % 7.4 % (0.0-11.0); NEUTROPHIL # 10.8 10^3/ul (1.6-7.5); NEUTROPHILS % 81.7 % (39.0-77.0); PLATELET COUNT 246 10^3/UL (140-440); RED CELL DISTRIBUTION WIDTH 22.9 % (11.5-14.5); UNCORRECTED WBC 13.2 10^3/ul (4.8-10.8); WHITE BLOOD COUNT 13.2 10^3/ul (4.8-10.8)
[2016-10-17 07:08] LABS: CONDITION 1; LH ANALYZER COMMENTS 1; SUSPECT 1
[2016-10-17 07:41] LABS: POTASSIUM 4.9 mmol/L (3.5-5.1)
[2016-10-17 07:44] LABS: CREATININE 1.58 mg/dl (0.44-1.00); PHOSPHORUS 3.3 mg/dl (2.5-4.9)
[2016-10-17 07:45] LABS: CALCIUM 8.1 mg/dl (8.4-10.2); MAGNESIUM 2.1 mg/dl (1.7-2.5)
--- NOTE | 2016-10-17 08:35 | PN ---
DATE: 10/17/2016 SUBJECTIVE: The patient is stable. No acute events overnight. No hemoptysis, hematemesis, or marilee tochezia. OBJECTIVE: VITAL SIGNS: Blood pressure is 112/59, respiration 20, pulse 107, temperature 98.6. HEENT: Head is normocephalic. NECK: Supple. HEART: Regular rate. LUNGS: Show diminished breath sounds at base. ABDOMEN: Soft, nontender to palpation. No rebound or guarding. EXTREMITIES: Negative for clubbing or cyanosis. No edema. DERMATOLOGIC: No rashes. MUSCULOSKELETAL: No joint effusions. NEUROLOGIC: No change in exam. MEDICATIONS: The patient's medications have been reviewed. LABORATORY DATA: Shows sodium 132, potassium 4.9, chloride 93, BUN 51, creatinine 1.58. White coun t 13.2, hemoglobin 8.9, hematocrit 27.4, platelet count is 246. ASSESSMENT AND PLAN: 1. Sepsis secondary to pneumonia, decubitus wound. Continue current antibiotic regimen. 2. End-stage renal disease. Continue hemodialysis, tolerating well. 3. Abdominal ascites. The patient is status post paracentesis. Continue to monitor. 4. Hyponatremia. Continue free water restriction. 5. Pulmonary hypertension. Continue sildenafil. 6. Anemia. Continue to monitor hemoglobin and hematocrit levels. Continue Epogen. 7. Seizure disorder. Continue Keppra. 8. Decubitus wound. Continue wound care. 9. Dysphagia tube feed. 10. Ventilator dependent respiratory failure. Vent settings have been reviewed. [facility]. 11. Encephalopathy. No change. 12. Atrial fibrillation, rate controlled. Continue medical management. 13. Gastrointestinal and deep venous thrombosis prophylaxis. Continue proton pump inhibitor . Dictated By: RUDDY BUSTILLOS/ARNOLDO Conf#: [id number] DID#: [id number]
[2016-10-17] MEDS: PRAMOXINE 1% 15 GM RECT FOAM PR SCH ×3 (09:00→20:29)
[2016-10-17] MEDS: MUPIROCIN 2% 22 GM OINT TOP SCH ×2 (09:00→20:28)
[2016-10-17] MEDS: BUDESONIDE (NEB) 0.5MG/2ML AMP HHN SCH ×2 (09:17→20:45)
--- NOTE | 2016-10-17 09:58 | PN ---
DATE: 10/17/2016 CARDIOLOGY FOLLOWUP SUBJECTIVE: Discussed with the staff, discussed with Dr. Reddy. Rhythm strip was reviewed. The patient remains in atrial fibrillation. Heart rate is overall under good control. No reported ches t pain or pressure. Status post tracheostomy, on the vent though. CURRENT MEDICATIONS: Reviewed. PHYSICAL EXAMINATION: VITAL SIGNS: Temperature 98.6, heart rate of 100, blood pressure 112/59, respiration rate of 20, sa turating 98%. HEENT: Normocephalic, atraumatic. NECK: Status post tracheostomy, on the vent. CARDIOVASCULAR: Irregularly irregular, systolic murmur. PULMONARY: Mild rhonchi and wheezes. GASTROINTESTINAL: Soft, nontender. EXTREMITIES: With no significant lower extremity edema. ABDOMEN: Soft, nontender. Positive for ascites. PSYCHIATRIC: Appears to be calm and very pleasant. LABORATORY: WBC of 13.2, hemoglobin 8.9, platelets of 246. Sodium 132, potassium 4.9, BUN of 51, c reatinine 1.58, glucose of 97, mag is 2.1. ASSESSMENT AND PLAN: 1. Atrial fibrillation, chronic. Heart rate controlled. Currently on anticoagulation with Eliquis . 2. Hypoxemic respiratory failure. Status post tracheostomy, vent dependent. 3. Pulmonary hypertension. 4. Possible ASD. 5. Renal failure. On dialysis. 6. Anemia. 7. Status post sepsis and shock. 8. Pneumonia. RECOMMENDATIONS: Will continue with the current cardiac care. Anticoagulation will be continued. Overall stable. Will continue to monitor on telemetry. Ventilator support will be continued. Anti biotic as per ID recommendation. Dictated By: AMANDA LARA/ARNOLDO Conf#: [id number] DID#: [id number]
[2016-10-17] MEDS: APIXABAN 5 MG TABLET GTB SCH ×2 (10:09→20:29)
[2016-10-17] MEDS: SILDENAFIL 20 MG TAB GTB SCH ×3 (10:15→20:29)
[2016-10-17] MEDS: LEVETIRACETAM IV 500 MG in DEXTROSE 5% 100 ML IVPB SCH ×2 (10:17→20:28)
[2016-10-17] MEDS: COLLAGENASE 30 GM TUBE TOP SCH (10:53)
[2016-10-17] MEDS ORDERED: HEPARIN 1000 UNITS/ML 10 ML INJ CATHETER SCH (12:00)
--- NOTE | 2016-10-17 13:04 | CONS ---
Date/Time of Note Date/Time of Note DATE: 10/17/16 TIME: 13:03 Consult Date/Type/Reason Admit Date/Time Sep 17, 2016 at 18:49 Type of Consultation: ID Subjective no events, lying comfortably in bed, no fevers, still leaking around GT site Objective Vital Signs Date Time Temp Pulse Resp B/P Pulse Ox O2 Delivery O2 Flow Rate FiO2 10/17/16 12:46 98.6 94 20 108/52 97 10/17/16 11:35 40 10/16/16 09:32 Nasal Cannula Intake and Output 10/16/16 10/16/16 10/17/16 15:00 23:00 07:00 Intake Total 750 ml Balance 750 ml Results/Medications Result Diagram: 10/17/16 0602 10/17/16 0602 Results 24 hrs Laboratory Tests Test 10/17/16 06:02 10/17/16 08:13 10/17/16 12:42 Anion Gap 12 Basophils # 0.1 Basophils % 0.6 Blood Morphology Comment Blood Urea Nitrogen 51 H Calcium Level 8.1 L Carbon Dioxide Level 32 H Chloride Level 93 L Creatinine 1.58 H Eosinophils # 0.0 Eosinophils % 0.2 Glucose Level 97 Hematocrit 27.4 L Hemoglobin 8.9 L Lymphocytes # 1.3 Lymphocytes % 10.1 L Magnesium Level 2.1 Mean Corpuscular Hemoglobin 31.6 Mean Corpuscular Hemoglobin Concent 32.3 Mean Corpuscular Volume 97.8 Mean Platelet Volume 7.9 Monocytes # 1.0 H Monocytes % 7.4 Neutrophils # 10.8 H Neutrophils % 81.7 H Nucleated Red Blood Cells # 0.0 Nucleated Red Blood Cells % 0.0 Phosphorus Level 3.3 Platelet Count 246 Potassium Level 4.9 Red Blood Count 2.80 L Red Cell Distribution Width 22.9 H Sodium Level 132 L White Blood Count 13.2 H Bedside Glucose 114 117 Medications Current Medications Levetiracetam/ Dextrose (Keppra Iv/D5W) 105 ml @ 420 mls/hr Q12 IVPB Last administered on 10/17/16at 10:17; Admin Dose 420 MLS/HR; Start 09/18/16 at 09:00 Collagenase (Santyl) 1 applic DAILY TOP Last administered on 10/17/16at 10:53; Admin Dose 1 APPLIC; Start 09/18/16 at 09:00 Acetaminophen (Tylenol Liquid) 650 mg Q4H PRN NGT PAIN AND OR ELEVATED TEMP Last administered on 09/29/16at 12:07; Admin Dose 650 MG; Start 09/18/16 at 08: 00 Bisacodyl (Dulcolax Supp) 10 mg DAILY PRN [place] CONSTIPATION; Start 09/18/16 at 08:00 Mupirocin (Bactroban) Apply to bilateral nares ... BID TOP Last administered on 10/17/16at 09:00; Admin Dose 1 APPLIC; Start 09/18/16 at 09:00 Mirtazapine (Remeron) 7.5 mg HS GTB Last administered on 10/16/16 20:09; Admin Dose 7.5 MG; Start 09/18/16 at 21:00 Ondansetron HCl (Zofran Inj) 4 mg Q4H PRN IV NAUSEA AND/OR VOMITING; Start 08/24 at 08:00 Morphine Sulfate (morphine) 2 mg Q3H PRN IV PAIN LEVEL 6-10 Last administered on 09/28/16at 12:25; Admin Dose 2 MG; Start 09/18/16 at 08:00 Lorazepam (Ativan) 0.5 mg Q3H PRN IV ANXIETY; Start 09/18/16 at 08:00 Amikacin Sulfate (Amikacin Iv Per Pharmacy) PER PHARMACY DOSING NOTE XX ; Start 09/18/16 at 13:00 Vancomycin HCl (Vanco Iv Per Pharmacy) PER PHARMACY DOSING NOTE XX ; Start 08/24 at 13:00 IV Flush (NS 10 ml) 10 ml PRN PRN IV IV PROTOCOL Last administered on at 06:01; Admin Dose 10 ML; Start 09/18/16 at 13:00 Lansoprazole (Prevacid) 30 mg DAILY@06 PO Last administered on 10/17/16 05:09 ; Admin Dose 30 MG; Start 09/27/16 at 06:00 Apixaban (Eliquis) 2.5 mg BID GTB Last administered on 10/17/16at 10:09; Admin Dose 2.5 MG; Start 09/30/16 at 09:00; Status Future hold Metoclopramide HCl (Reglan) 5 mg Q6 IV Last administered on 10/17/16at 05:09; Admin Dose 5 MG; Start 09/30/16 at 12:00 Metronidazole (Flagyl) 500 mg Q8 PO Last administered on 10/17/16at 05:09; Admin Dose 500 MG; Start 10/01/16 at 14:30 Sildenafil Citrate 20 mg 20 mg TID GTB Last administered on 10/17/16at 10:15; Admin Dose 20 MG; Start 10/08/16 at 10:45 Vancomycin HCl/ Sodium Chloride (Vancocin/NS) 250 ml @ 83.333 mls/ hr Q96H IVPB Last administered on 10/13/16at 13:49; Admin Dose 83.333 MLS/HR; Start 10/09/16 at 13:30 Pramoxine HCl (Proctofoam 1%) 1 applic TID [place] Last administered on 10/17/16at 09 :00; Admin Dose 1 APPLIC; Start 10/10/16 at 21:00 Assessment/Plan Chief Complaint/Hosp Course MICROBIOLOGY: Endotracheal aspirate growing multidrug resistant Pseudomonas. Blood cultures negative, wound culture of her sacrum growing MRSA. Urine culture growing Kelly glabrata. INDWELLING: trach, PEG, RIJ Perm-A-Cath, Left upper extremity PICC line placed on 09/18/2016. ANTIMICROBIALS: 1. Amikacin. 2. Vancomycin. 3. Flagyl PHYSICAL EXAMINATION: GENERAL: Fragile, chronically ill-appearing, elderly woman who is lying comfortably in bed. HEENT: Head atraumatic, normocephalic. Sclerae anicteric. Buccal mucosa dry. NECK: Supple. Tracheostomy present. CHEST: Rise symmetrical. Breath sounds diminished to bases. HEART: S1, S2. ABDOMEN: Soft, bowel tones present. EXTREMITIES: Without cyanosis. ASSESSMENT: 1. Ongoing sepsis, status post shock. 2. S/p healthcare-associated pneumonia with parapneumonic pleural effusion and sputum culture growing multi-drug resistant Pseudomonas aeruginosa. 3. Methicillin-resistant Staphylococcus aureus infected decubitus. 4. GT site cellulitis==> GI follows 4. S/p kelly glabrata urinary tract infection. 5. Methicillin-resistant Staphylococcus aureus nares colonization. 6. End-stage renal disease, hemodialysis dependent. 7. History of cerebrovascular accident. 8. Ascites==> s/p paracentesis 09/24, 10/14 9. Sacral decub, poss OM 10. ALLERGY TO PENICILLIN AND SULFA. PLAN: Clinically unchanged, no fevers, continue abx. GT site care per GI rec-s, vent per pulmonary, ascitic fluid cx not sent DW staff Problems: RAISSA ROA NP Oct 17, 2016 13:04
[2016-10-17] MEDS: ALBUMIN HUMAN 25% 100 ML IV PRN ×2 (14:30→15:29)
[2016-10-17] MEDS: VANCOMYCIN 1.25 GM in SOD CHLORIDE 0.9% 250 ML IVPB SCH (15:45)
--- NOTE | 2016-10-17 17:51 | CONS ---
Date/Time of Note Date/Time of Note DATE: 10/17/16 TIME: 17:49 Assessment/Plan Assessment/Plan Additional Assessment/Plan ASSESSMENT: 1. Renal failure on dialysis. 2. Vent dependent respiratory failure. 3. Chronic obstructive pulmonary disease. 4. Atrial fibrillation. 5. Ascites, successful paracentesis done. 6. Dysphagia 7. G-tube clean,no leakage,tolerating feeding 8. Anemia: stable, likely from anemia of chronic disease 9. Status post septic shock. 10. Diabetes mellitus. 11. Decubitus ulcer. 12. Congestive heart failure. 13. Seizure disorder. 14. pneumonia,s/p sepsis 15.pulmonary hypertension 16 persistent leucocytosis,better 17.pressure ulcer g tube site Plan continue antibiotics per ID Reglan for gastroparesis Bactroban to g tube site. Routine G-tube site care,colostomy bag attached to g tube site.no leakage of formula Consultation Date/Type/Reason Admit Date/Time Sep 17, 2016 at 18:49 Type of Consultation: ID 24 HR Interval Summary Constitutional: no complaints Exam/Review of Systems Vital Signs Vitals Vital Signs Date Time Temp Pulse Resp B/P Pulse Ox O2 Delivery O2 Flow Rate FiO2 10/17/16 17:00 91 10/17/16 17:00 17 10/17/16 16:06 98.5 110/57 98 10/17/16 15:05 40 10/16/16 09:32 Nasal Cannula Intake and Output 10/16/16 10/16/16 10/17/16 15:00 23:00 07:00 Intake Total 750 ml Balance 750 ml Exam Constitutional: alert, oriented, well developed Psych: nl mood/affect, no complaints Head: atraumatic, normocephalic Eyes: EOMI, PERRL, nl conjunctiva, nl lids, nl sclera ENMT: nl external ears & nose, nl lips & teeth, nl nasal mucosa & septum Neck: non-tender, supple Respiratory: clear to auscultation, normal air movement Cardiovascular: nl pulses, regular rate and rhythm Gastrointestinal: nl liver, spleen, non-tender, other (colostomy bag around g tube and paracetesis punctured site), soft Musculoskeletal: nl extremities to inspection, nl gait and stance Extremities: normal pulses 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, nl mental status, nl speech, nl strength Skin: nl turgor, No rash or lesions Lymph: nl lymph nodes Results Result Diagram: 10/17/16 0602 10/17/16 0602 Results 24 hrs Laboratory Tests Test 10/17/16 06:02 10/17/16 08:13 10/17/16 12:42 Anion Gap 12 Basophils # 0.1 Basophils % 0.6 Blood Morphology Comment Blood Urea Nitrogen 51 H Calcium Level 8.1 L Carbon Dioxide Level 32 H Chloride Level 93 L Creatinine 1.58 H Eosinophils # 0.0 Eosinophils % 0.2 Glucose Level 97 Hematocrit 27.4 L Hemoglobin 8.9 L Lymphocytes # 1.3 Lymphocytes % 10.1 L Magnesium Level 2.1 Mean Corpuscular Hemoglobin 31.6 Mean Corpuscular Hemoglobin Concent 32.3 Mean Corpuscular Volume 97.8 Mean Platelet Volume 7.9 Monocytes # 1.0 H Monocytes % 7.4 Neutrophils # 10.8 H Neutrophils % 81.7 H Nucleated Red Blood Cells # 0.0 Nucleated Red Blood Cells % 0.0 Phosphorus Level 3.3 Platelet Count 246 Potassium Level 4.9 Red Blood Count 2.80 L Red Cell Distribution Width 22.9 H Sodium Level 132 L White Blood Count 13.2 H Bedside Glucose 114 117 Medications Medications Current Medications Levetiracetam/ Dextrose (Keppra Iv/D5W) 105 ml @ 420 mls/hr Q12 IVPB Last administered on 10/17/16at 10:17; Admin Dose 420 MLS/HR; Start 09/18/16 at 09:00 Collagenase (Santyl) 1 applic DAILY TOP Last administered on 10/17/16at 10:53; Admin Dose 1 APPLIC; Start 09/18/16 at 09:00 Acetaminophen (Tylenol Liquid) 650 mg Q4H PRN NGT PAIN AND OR ELEVATED TEMP Last administered on 09/29/16at 12:07; Admin Dose 650 MG; Start 09/18/16 at 08: 00 Bisacodyl (Dulcolax Supp) 10 mg DAILY PRN [place] CONSTIPATION; Start 09/18/16 at 08:00 Mupirocin (Bactroban) Apply to bilateral nares ... BID TOP Last administered on 10/17/16at 09:00; Admin Dose 1 APPLIC; Start 09/18/16 at 09:00 Mirtazapine (Remeron) 7.5 mg HS GTB Last administered on 10/16/16at 20:09; Admin Dose 7.5 MG; Start 09/18/16 at 21:00 Ondansetron HCl (Zofran Inj) 4 mg Q4H PRN IV NAUSEA AND/OR VOMITING; Start 08/24 at 08:00 Morphine Sulfate (morphine) 2 mg Q3H PRN IV PAIN LEVEL 6-10 Last administered on 09/28/16at 12:25; Admin Dose 2 MG; Start 09/18/16 at 08:00 Lorazepam (Ativan) 0.5 mg Q3H PRN IV ANXIETY; Start 09/18/16 at 08:00 Amikacin Sulfate (Amikacin Iv Per Pharmacy) PER PHARMACY DOSING NOTE XX ; Start 09/18/16 at 13:00 Vancomycin HCl (Vanco Iv Per Pharmacy) PER PHARMACY DOSING NOTE XX ; Start 08/24 at 13:00 IV Flush (NS 10 ml) 10 ml PRN PRN IV IV PROTOCOL Last administered on at 06:01; Admin Dose 10 ML; Start 09/18/16 at 13:00 Lansoprazole (Prevacid) 30 mg DAILY@06 PO Last administered on 10/17/16 05:09 ; Admin Dose 30 MG; Start 09/27/16 at 06:00 Apixaban (Eliquis) 2.5 mg BID GTB Last administered on 10/17/16 10:09; Admin Dose 2.5 MG; Start 09/30/16 at 09:00; Status Future hold Metoclopramide HCl (Reglan) 5 mg Q6 IV Last administered on 10/17/16 05:09; Admin Dose 5 MG; Start 09/30/16 at 12:00 Metronidazole (Flagyl) 500 mg Q8 PO Last administered on 10/17/16 05:09; Admin Dose 500 MG; Start 10/01/16 at 14:30 Sildenafil Citrate 20 mg 20 mg TID GTB Last administered on 10/17/16 10:15; Admin Dose 20 MG; Start 10/08/16 at 10:45 Vancomycin HCl/ Sodium Chloride (Vancocin/NS) 250 ml @ 83.333 mls/ hr Q96H IVPB Last administered on 10/17/16at 15:45; Admin Dose 83.333 MLS/HR; Start 10/09/16 at 13:30 Pramoxine HCl (Proctofoam 1%) 1 applic TID [place] Last administered on 10/17/16at 09 :00; Admin Dose 1 APPLIC; Start 10/10/16 at 21:00 ANNABEL CISSE MD Oct 17, 2016 17:51
--- NOTE | 2016-10-17 17:53 | CONS ---
Date/Time of Note Date/Time of Note DATE: 10/17/16 TIME: 17:51 Consult Date/Type/Reason Admit Date/Time Sep 17, 2016 at 18:49 Type of Consultation: pulmonary Subjective Patient stable no new events Objective Vital Signs Date Time Temp Pulse Resp B/P Pulse Ox O2 Delivery O2 Flow Rate FiO2 10/17/16 17:00 91 10/17/16 17:00 17 10/17/16 16:06 98.5 110/57 98 10/17/16 15:05 40 10/16/16 09:32 Nasal Cannula Intake and Output 10/16/16 10/16/16 10/17/16 15:00 23:00 07:00 Intake Total 750 ml Balance 750 ml GENERAL: Chronically ill-appearing lady on mechanical ventilation comfortable at rest VITAL SIGNS: per chart NECK: Supple. No JVD or lymphadenopathy. CARDIAC EXAM: S1, S2. No added sounds or murmurs. CHEST: clear bilaterally, No added sounds, rales or wheezes ABDOMEN: Soft, nontender. No guarding or rebound. Moderate distention EXTREMITIES: No cyanosis, clubbing edema +2 NEUROLOGIC: Generalized weakness. Results/Medications Result Diagram: 10/17/16 0602 10/17/16 0602 Results 24 hrs Laboratory Tests Test 10/17/16 06:02 10/17/16 08:13 10/17/16 12:42 Anion Gap 12 Basophils # 0.1 Basophils % 0.6 Blood Morphology Comment Blood Urea Nitrogen 51 H Calcium Level 8.1 L Carbon Dioxide Level 32 H Chloride Level 93 L Creatinine 1.58 H Eosinophils # 0.0 Eosinophils % 0.2 Glucose Level 97 Hematocrit 27.4 L Hemoglobin 8.9 L Lymphocytes # 1.3 Lymphocytes % 10.1 L Magnesium Level 2.1 Mean Corpuscular Hemoglobin 31.6 Mean Corpuscular Hemoglobin Concent 32.3 Mean Corpuscular Volume 97.8 Mean Platelet Volume 7.9 Monocytes # 1.0 H Monocytes % 7.4 Neutrophils # 10.8 H Neutrophils % 81.7 H Nucleated Red Blood Cells # 0.0 Nucleated Red Blood Cells % 0.0 Phosphorus Level 3.3 Platelet Count 246 Potassium Level 4.9 Red Blood Count 2.80 L Red Cell Distribution Width 22.9 H Sodium Level 132 L White Blood Count 13.2 H Bedside Glucose 114 117 Medications Current Medications Levetiracetam/ Dextrose (Keppra Iv/D5W) 105 ml @ 420 mls/hr Q12 IVPB Last administered on 10/17/16at 10:17; Admin Dose 420 MLS/HR; Start 09/18/16 at 09:00 Collagenase (Santyl) 1 applic DAILY TOP Last administered on 10/17/16at 10:53; Admin Dose 1 APPLIC; Start 09/18/16 at 09:00 Acetaminophen (Tylenol Liquid) 650 mg Q4H PRN NGT PAIN AND OR ELEVATED TEMP Last administered on 09/29/16at 12:07; Admin Dose 650 MG; Start 09/18/16 at 08: 00 Bisacodyl (Dulcolax Supp) 10 mg DAILY PRN [place] CONSTIPATION; Start 09/18/16 at 08:00 Mupirocin (Bactroban) Apply to bilateral nares ... BID TOP Last administered on 10/17/16at 09:00; Admin Dose 1 APPLIC; Start 09/18/16 at 09:00 Mirtazapine (Remeron) 7.5 mg HS GTB Last administered on 10/16/16at 20:09; Admin Dose 7.5 MG; Start 09/18/16 at 21:00 Ondansetron HCl (Zofran Inj) 4 mg Q4H PRN IV NAUSEA AND/OR VOMITING; Start 08/24 at 08:00 Morphine Sulfate (morphine) 2 mg Q3H PRN IV PAIN LEVEL 6-10 Last administered on 09/28/16at 12:25; Admin Dose 2 MG; Start 09/18/16 at 08:00 Lorazepam (Ativan) 0.5 mg Q3H PRN IV ANXIETY; Start 09/18/16 at 08:00 Amikacin Sulfate (Amikacin Iv Per Pharmacy) PER PHARMACY DOSING NOTE XX ; Start 09/18/16 at 13:00 Vancomycin HCl (Vanco Iv Per Pharmacy) PER PHARMACY DOSING NOTE XX ; Start 08/24 at 13:00 IV Flush (NS 10 ml) 10 ml PRN PRN IV IV PROTOCOL Last administered on at 06:01; Admin Dose 10 ML; Start 09/18/16 at 13:00 Lansoprazole (Prevacid) 30 mg DAILY@06 PO Last administered on 10/17/16at 05:09 ; Admin Dose 30 MG; Start 09/27/16 at 06:00 Apixaban (Eliquis) 2.5 mg BID GTB Last administered on 10/17/16at 10:09; Admin Dose 2.5 MG; Start 09/30/16 at 09:00; Status Future hold Metoclopramide HCl (Reglan) 5 mg Q6 IV Last administered on 10/17/16at 05:09; Admin Dose 5 MG; Start 09/30/16 at 12:00 Metronidazole (Flagyl) 500 mg Q8 PO Last administered on 10/17/16at 05:09; Admin Dose 500 MG; Start 10/01/16 at 14:30 Sildenafil Citrate 20 mg 20 mg TID GTB Last administered on 10/17/16at 10:15; Admin Dose 20 MG; Start 10/08/16 at 10:45 Vancomycin HCl/ Sodium Chloride (Vancocin/NS) 250 ml @ 83.333 mls/ hr Q96H IVPB Last administered on 10/17/16at 15:45; Admin Dose 83.333 MLS/HR; Start 10/09/16 at 13:30 Pramoxine HCl (Proctofoam 1%) 1 applic TID [place] Last administered on 10/17/16at 09 :00; Admin Dose 1 APPLIC; Start 10/10/16 at 21:00 Assessment/Plan Chief Complaint/Hosp Course Additional Assessment/Plan IMPRESSION: 1. Ventilatory-dependent respiratory failure. 2. Status post septic shock. 3. Decubitus ulcers and polymicrobial sepsis. Persistent leukocytosis 4. Hypernatremia. 5. End-stage renal failure on hemodialysis. 6. Underlying seizure disorder. PLAN: 1. Vent support 2. BD's/CPT 3. am labs 4. TFs/free H20 5. Abx; f/u cx's Consider [facility] transfer Problems: JULIA HERNANDEZ MD, [facility] Oct 17, 2016 17:53
[2016-10-17] MEDS: EPOETIN 10000 UNITS/1 ML INJ (ESRD) SC SCH (18:26)
[2016-10-17] MEDS: SOD CHLORIDE 0.9% IVPB SCH (18:27)
[2016-10-17] MEDS: AMIKACIN IVPB SCH (18:27)
[2016-10-17] MEDS: MIRTAZAPINE 15 MG TAB GTB SCH (20:29)
[2016-10-18] VITALS (24 sets, daily range): BP systolic 102–120; BP diastolic 53–64; PULSE 89–105; RESP 15–20
[2016-10-18] MEDS: LEVALBUTEROL (HFA) 15 GM INHALER INH SCH ×6 (00:35→21:02)
[2016-10-18] MEDS: IPRATROPIUM (HFA) 12.9 GM INHALER INH SCH ×6 (00:35→21:02)
[2016-10-18] MEDS: METOCLOPRAMIDE 10 MG INJ IV SCH ×3 (04:57→17:48)
[2016-10-18] MEDS: metroNIDAZOLE 500 MG TAB PO SCH (05:00)
[2016-10-18] MEDS: LANSOPRAZOLE 30 MG CAP PO SCH (05:19)
[2016-10-18] MEDS: BUDESONIDE (NEB) 0.5MG/2ML AMP HHN SCH ×2 (08:22→20:00)
[2016-10-18] MEDS: LEVETIRACETAM IV 500 MG in DEXTROSE 5% 100 ML IVPB SCH ×2 (09:05→21:21)
[2016-10-18] MEDS: APIXABAN 5 MG TABLET GTB SCH ×2 (09:05→21:20)
[2016-10-18] MEDS: SILDENAFIL 20 MG TAB GTB SCH ×3 (09:05→21:19)
[2016-10-18] MEDS: MUPIROCIN 2% 22 GM OINT TOP SCH ×2 (09:06→21:25)
[2016-10-18] MEDS: COLLAGENASE 30 GM TUBE TOP SCH (09:06)
[2016-10-18] MEDS: PRAMOXINE 1% 15 GM RECT FOAM PR SCH ×3 (09:09→21:25)
--- NOTE | 2016-10-18 11:26 | PN ---
Date/Time of Note Date/Time of Note DATE: 10/18/16 TIME: 11:22 Assessment/Plan VTE Prophylaxis VTE Prophylaxis Intervention: other Lines/Catheters IV Catheter Type (from [facility]): permacath Urinary Cath still in place: No Assessment/Plan Chief Complaint/Hosp Course The patient is stable. No acute events overnight. No hemoptysis, hematemesis, or hematochezia, new rash, tachypnea, melena, hematuria, diaphoresis, fever d/w Dr Reddy cxr and vent settings were reviewed OBJECTIVE: HEENT: Head is normocephalic. NECK: Supple. HEART: Regular rate. LUNGS: Show diminished breath sounds at base. ABDOMEN: Soft, nontender to palpation. No rebound or guarding. EXTREMITIES: Negative for clubbing or cyanosis. No edema. DERMATOLOGIC: No rashes. MUSCULOSKELETAL: No joint effusions. NEUROLOGIC: No change in exam. MEDICATIONS: The patient's medications have been reviewed. ASSESSMENT AND PLAN: 1. Sepsis secondary to pneumonia, decubitus wound. Continue current antibiotic regimen. 2. End-stage renal disease. Continue hemodialysis, tolerating well. 3. Abdominal ascites. The patient is status post paracentesis. Continue to monitor. 4. Hyponatremia. Continue free water restriction. 5. Pulmonary hypertension. Continue sildenafil. 6. Anemia. Continue to monitor hemoglobin and hematocrit levels. Continue Epogen. 7. Seizure disorder. Continue Keppra. 8. Decubitus wound. Continue wound care. 9. Dysphagia 10. Ventilator dependent respiratory failure. Vent settings have been reviewed. Follow up with pulmonary. 11. Encephalopathy. No change. 12. Atrial fibrillation, rate controlled. Continue medical management. 13. Gastrointestinal and deep venous thrombosis prophylaxis. Continue proton pump inhibitor Problems: Exam/Review of Systems Vital Signs Vitals Vital Signs Date Time Temp Pulse Resp B/P Pulse Ox O2 Delivery O2 Flow Rate FiO2 10/18/16 11:14 97.6 68 18 120/64 98 10/18/16 09:38 40 10/16/16 09:32 Nasal Cannula Intake and Output 10/17/16 10/17/16 10/18/16 15:00 23:00 07:00 Intake Total 1800 ml Output Total 2200 ml Balance -400 ml Results Result Diagram: 10/17/16 0602 10/17/16 0602 Results 24 hrs Laboratory Tests Test 10/17/16 12:42 Bedside Glucose 117 Medications Medications Current Medications Levetiracetam/ Dextrose (Keppra Iv/D5W) 105 ml @ 420 mls/hr Q12 IVPB Last administered on 10/18/16at 09:05; Admin Dose 420 MLS/HR; Start 09/18/16 at 09: 00 Collagenase (Santyl) 1 applic DAILY TOP Last administered on 10/18/16at 09:06; Admin Dose 1 APPLIC; Start 09/18/16 at 09:00 Acetaminophen (Tylenol Liquid) 650 mg Q4H PRN NGT PAIN AND OR ELEVATED TEMP Last administered on 09/29/16at 12:07; Admin Dose 650 MG; Start 09/18/16 at 08: 00 Bisacodyl (Dulcolax Supp) 10 mg DAILY PRN [place] CONSTIPATION; Start 09/18/16 at 08:00 Mupirocin (Bactroban) Apply to bilateral nares ... BID TOP Last administered on 10/18/16at 09:06; Admin Dose 1 APPLIC; Start 09/18/16 at 09:00 Mirtazapine (Remeron) 7.5 mg HS GTB Last administered on 10/17/16at 20:29; Admin Dose 7.5 MG; Start 09/18/16 at 21:00 Ondansetron HCl (Zofran Inj) 4 mg Q4H PRN IV NAUSEA AND/OR VOMITING; Start 08/24 at 08:00 Morphine Sulfate (morphine) 2 mg Q3H PRN IV PAIN LEVEL 6-10 Last administered on 09/28/16at 12:25; Admin Dose 2 MG; Start 09/18/16 at 08:00 Lorazepam (Ativan) 0.5 mg Q3H PRN IV ANXIETY; Start 09/18/16 at 08:00 Amikacin Sulfate (Amikacin Iv Per Pharmacy) PER PHARMACY DOSING NOTE XX ; Start 09/18/16 at 13:00 Vancomycin HCl (Vanco Iv Per Pharmacy) PER PHARMACY DOSING NOTE XX ; Start 08/24 at 13:00 IV Flush (NS 10 ml) 10 ml PRN PRN IV IV PROTOCOL Last administered on at 06:01; Admin Dose 10 ML; Start 09/18/16 at 13:00 Lansoprazole (Prevacid) 30 mg DAILY@06 PO Last administered on 10/18/16 05:19 ; Admin Dose 30 MG; Start 09/27/16 at 06:00 Apixaban (Eliquis) 2.5 mg BID GTB Last administered on 10/18/16 09:05; Admin Dose 2.5 MG; Start 09/30/16 at 09:00; Status Future hold Metoclopramide HCl (Reglan) 5 mg Q6 IV Last administered on 10/18/16 11:18; Admin Dose 5 MG; Start 09/30/16 at 12:00 Metronidazole (Flagyl) 500 mg Q8 PO Last administered on 10/18/16 05:00; Admin Dose 500 MG; Start 10/01/16 at 14:30 Sildenafil Citrate 20 mg 20 mg TID GTB Last administered on 10/18/16 09:05; Admin Dose 20 MG; Start 10/08/16 at 10:45 Vancomycin HCl/ Sodium Chloride (Vancocin/NS) 250 ml @ 83.333 mls/ hr Q96H IVPB Last administered on 10/17/16at 15:45; Admin Dose 83.333 MLS/HR; Start 10/09/16 at 13:30 Pramoxine HCl (Proctofoam 1%) 1 applic TID [place] Last administered on 10/18/16 09:09; Admin Dose 1 APPLIC; Start 10/10/16 at 21:00 EWA MELISSA DO Oct 18, 2016 11:26
--- NOTE | 2016-10-18 12:46 | CONS ---
Date/Time of Note Date/Time of Note DATE: 10/18/16 TIME: 12:45 Assessment/Plan Assessment/Plan Additional Assessment/Plan Additional Assessment/Plan ASSESSMENT: 1. Renal failure on dialysis. 2. Vent dependent respiratory failure. 3. Chronic obstructive pulmonary disease. 4. Atrial fibrillation. 5. Ascites, successful paracentesis done. 6. Dysphagia 7. G-tube clean,no leakage,tolerating feeding 8. Anemia: stable, likely from anemia of chronic disease 9. Status post septic shock. 10. Diabetes mellitus. 11. Decubitus ulcer. 12. Congestive heart failure. 13. Seizure disorder. 14. pneumonia,s/p sepsis 15.pulmonary hypertension 16 persistent leucocytosis,better 17.pressure ulcer g tube site Plan continue antibiotics per ID Reglan for gastroparesis Bactroban to g tube site. Routine G-tube site care,colostomy bag attached to g tube site.no leakage of formula wound care nurse has not seen pt. Consultation Date/Type/Reason Admit Date/Time Sep 17, 2016 at 18:49 Type of Consultation: pulmonary 24 HR Interval Summary Constitutional: no complaints Exam/Review of Systems Vital Signs Vitals Vital Signs Date Time Temp Pulse Resp B/P Pulse Ox O2 Delivery O2 Flow Rate FiO2 10/18/16 12:41 103 10/18/16 11:14 97.6 18 120/64 98 10/18/16 09:38 40 10/16/16 09:32 Nasal Cannula Intake and Output 10/17/16 10/17/16 10/18/16 15:00 23:00 07:00 Intake Total 1800 ml Output Total 2200 ml Balance -400 ml Exam Constitutional: alert, oriented, well developed Psych: nl mood/affect, no complaints Head: atraumatic, normocephalic Eyes: EOMI, PERRL, nl conjunctiva, nl lids, nl sclera ENMT: nl external ears & nose, nl lips & teeth, nl nasal mucosa & septum Neck: non-tender, supple Respiratory: clear to auscultation, normal air movement Cardiovascular: nl pulses, regular rate and rhythm Gastrointestinal: nl liver, spleen, non-tender, soft Musculoskeletal: nl extremities to inspection, nl gait and stance Extremities: normal pulses Neurological: SKI TECHNICIAN II-XII intact, nl mental status, nl speech, nl strength Skin: nl turgor, No rash or lesions Lymph: nl lymph nodes Results Result Diagram: 10/17/1660110/17/16601 Medications Medications Current Medications Levetiracetam/ Dextrose (Keppra Iv/D5W) 105 ml @ 420 mls/hr Q12 IVPB Last administered on 10/18/16at 09:05; Admin Dose 420 MLS/HR; Start 09/18/16 at 09: 00 Collagenase (Santyl) 1 applic DAILY TOP Last administered on 10/18/16at 09:06; Admin Dose 1 APPLIC; Start 09/18/16 at 09:00 Acetaminophen (Tylenol Liquid) 650 mg Q4H PRN NGT PAIN AND OR ELEVATED TEMP Last administered on 09/29/16at 12:07; Admin Dose 650 MG; Start 09/18/16 at 08: 00 Bisacodyl (Dulcolax Supp) 10 mg DAILY PRN [place] CONSTIPATION; Start 09/18/16 at 08:00 Mupirocin (Bactroban) Apply to bilateral nares ... BID TOP Last administered on 10/18/16at 09:06; Admin Dose 1 APPLIC; Start 09/18/16 at 09:00 Mirtazapine (Remeron) 7.5 mg HS GTB Last administered on 10/17/16at 20:29; Admin Dose 7.5 MG; Start 09/18/16 at 21:00 Ondansetron HCl (Zofran Inj) 4 mg Q4H PRN IV NAUSEA AND/OR VOMITING; Start 08/24 at 08:00 Morphine Sulfate (morphine) 2 mg Q3H PRN IV PAIN LEVEL 6-10 Last administered on 09/28/16at 12:25; Admin Dose 2 MG; Start 09/18/16 at 08:00 Lorazepam (Ativan) 0.5 mg Q3H PRN IV ANXIETY; Start 09/18/16 at 08:00 Amikacin Sulfate (Amikacin Iv Per Pharmacy) PER PHARMACY DOSING NOTE XX ; Start 09/18/16 at 13:00 Vancomycin HCl (Vanco Iv Per Pharmacy) PER PHARMACY DOSING NOTE XX ; Start 08/24 at 13:00 IV Flush (NS 10 ml) 10 ml PRN PRN IV IV PROTOCOL Last administered on at 06:01; Admin Dose 10 ML; Start 09/18/16 at 13:00 Lansoprazole (Prevacid) 30 mg DAILY@06 PO Last administered on 10/18/16 05:19 ; Admin Dose 30 MG; Start 09/27/16 at 06:00 Apixaban (Eliquis) 2.5 mg BID GTB Last administered on 10/18/16 09:05; Admin Dose 2.5 MG; Start 09/30/16 at 09:00; Status Future hold Metoclopramide HCl (Reglan) 5 mg Q6 IV Last administered on 10/18/16 11:18; Admin Dose 5 MG; Start 09/30/16 at 12:00 Metronidazole (Flagyl) 500 mg Q8 PO Last administered on 10/18/16 05:00; Admin Dose 500 MG; Start 10/01/16 at 14:30 Sildenafil Citrate 20 mg 20 mg TID GTB Last administered on 10/18/16 09:05; Admin Dose 20 MG; Start 10/08/16 at 10:45 Vancomycin HCl/ Sodium Chloride (Vancocin/NS) 250 ml @ 83.333 mls/ hr Q96H IVPB Last administered on 10/17/16at 15:45; Admin Dose 83.333 MLS/HR; Start 10/09/16 at 13:30 Pramoxine HCl (Proctofoam 1%) 1 applic TID MD Last administered on 10/18/16 09:09; Admin Dose 1 APPLIC; Start 10/10/16 at 21:00 ANNABEL CISSE MD Oct 18, 2016 12:46
--- NOTE | 2016-10-18 13:48 | CONS ---
Date/Time of Note Date/Time of Note DATE: 10/18/16 TIME: 13:44 Assessment/Plan Assessment/Plan Chief Complaint/Hosp Course MICROBIOLOGY: Endotracheal aspirate growing multidrug resistant Pseudomonas. Blood cultures negative, wound culture of her sacrum growing MRSA. Urine culture growing Kelly glabrata. INDWELLING: trach, PEG, RIJ Perm-A-Cath, Left upper extremity PICC line placed on 09/18/2016. ANTIMICROBIALS: 1. Amikacin. 2. Vancomycin. 3. Flagyl PHYSICAL EXAMINATION: GENERAL: Fragile, chronically ill-appearing, elderly woman who is lying comfortably in bed. HEENT: Head atraumatic, normocephalic. Sclerae anicteric. Buccal mucosa dry. NECK: Supple. Tracheostomy present. CHEST: Rise symmetrical. Breath sounds diminished to bases. HEART: S1, S2. ABDOMEN: Soft, bowel tones present. EXTREMITIES: Without cyanosis. ASSESSMENT: 1. Ongoing sepsis, status post shock. 2. S/p healthcare-associated pneumonia with parapneumonic pleural effusion and sputum culture growing multi-drug resistant Pseudomonas aeruginosa. 3. Methicillin-resistant Staphylococcus aureus infected decubitus. 4. GT site cellulitis==> GI follows 4. S/p kelly glabrata urinary tract infection. 5. Methicillin-resistant Staphylococcus aureus nares colonization. 6. End-stage renal disease, hemodialysis dependent. 7. History of cerebrovascular accident. 8. Ascites==> s/p paracentesis 09/24, 10/14 9. Sacral decub, poss OM 10. ALLERGY TO PENICILLIN AND SULFA. PLAN: Clinically unchanged, no fevers, completed 4 weeks abx, we are going dc abx and observe, continue. GT site care per GI rec-s, el cx prn DW staff Problems: Consultation Date/Type/Reason Admit Date/Time Sep 17, 2016 at 18:49 Type of Consultation: ID 24 HR Interval Summary Free Text/Dictation No acute changes per report, no fevers, lying comfortably in bed, nad Subjective hx not possible: pt non-verbal Exam/Review of Systems Vital Signs Vitals Vital Signs Date Time Temp Pulse Resp B/P Pulse Ox O2 Delivery O2 Flow Rate FiO2 10/18/16 13:10 93 18 96 40 10/18/16 11:14 97.6 120/64 10/16/16 09:32 Nasal Cannula Intake and Output 10/17/16 10/17/1610/18/16 15:00 23:00 07:00 Intake Total 1800 ml Output Total 2200 ml Balance -400 ml Results Result Diagram: 10/17/1660110/17/16601 Medications Medications Current Medications Levetiracetam/ Dextrose (Keppra Iv/D5W) 105 ml @ 420 mls/hr Q12 IVPB Last administered on 10/18/16at 09:05; Admin Dose 420 MLS/HR; Start 09/18/16 at 09: 00 Collagenase (Santyl) 1 applic DAILY TOP Last administered on 10/18/16at 09:06; Admin Dose 1 APPLIC; Start 09/18/16 at 09:00 Acetaminophen (Tylenol Liquid) 650 mg Q4H PRN NGT PAIN AND OR ELEVATED TEMP Last administered on 09/29/16at 12:07; Admin Dose 650 MG; Start 09/18/16 at 08: 00 Bisacodyl (Dulcolax Supp) 10 mg DAILY PRN [place] CONSTIPATION; Start 09/18/16 at 08:00 Mupirocin (Bactroban) Apply to bilateral nares ... BID TOP Last administered on 10/18/16at 09:06; Admin Dose 1 APPLIC; Start 09/18/16 at 09:00 Mirtazapine (Remeron) 7.5 mg HS GTB Last administered on 10/17/16at 20:29; Admin Dose 7.5 MG; Start 09/18/16 at 21:00 Ondansetron HCl (Zofran Inj) 4 mg Q4H PRN IV NAUSEA AND/OR VOMITING; Start 08/24 at 08:00 Morphine Sulfate (morphine) 2 mg Q3H PRN IV PAIN LEVEL 6-10 Last administered on 09/28/16at 12:25; Admin Dose 2 MG; Start 09/18/16 at 08:00 Lorazepam (Ativan) 0.5 mg Q3H PRN IV ANXIETY; Start 09/18/16 at 08:00 Amikacin Sulfate (Amikacin Iv Per Pharmacy) PER PHARMACY DOSING NOTE XX ; Start 09/18/16 at 13:00 Vancomycin HCl (Vanco Iv Per Pharmacy) PER PHARMACY DOSING NOTE XX ; Start 08/24 at 13:00 IV Flush (NS 10 ml) 10 ml PRN PRN IV IV PROTOCOL Last administered on 06:01; Admin Dose 10 ML; Start 09/18/16 at 13:00 Lansoprazole (Prevacid) 30 mg DAILY@06 PO Last administered on 10/18/16 05:19 ; Admin Dose 30 MG; Start 09/27/16 at 06:00 Apixaban (Eliquis) 2.5 mg BID GTB Last administered on 10/18/16 09:05; Admin Dose 2.5 MG; Start 09/30/16 at 09:00; Status Future hold Metoclopramide HCl (Reglan) 5 mg Q6 IV Last administered on 10/18/16 11:18; Admin Dose 5 MG; Start 09/30/16 at 12:00 Metronidazole (Flagyl) 500 mg Q8 PO Last administered on 10/18/16 05:00; Admin Dose 500 MG; Start 10/01/16 at 14:30 Sildenafil Citrate 20 mg 20 mg TID GTB Last administered on 10/18/16 09:05; Admin Dose 20 MG; Start 10/08/16 at 10:45 Vancomycin HCl/ Sodium Chloride (Vancocin/NS) 250 ml @ 83.333 mls/ hr Q96H IVPB Last administered on 10/17/16 15:45; Admin Dose 83.333 MLS/HR; Start 10/09/16 at 13:30 Pramoxine HCl (Proctofoam 1%) 1 applic TID [place] Last administered on 10/18/16 09:09; Admin Dose 1 APPLIC; Start 10/10/16 at 21:00 RAISSA ROA NP Oct 18, 2016 13:48
--- NOTE | 2016-10-18 13:55 | PN ---
DATE: 10/18/2016 CARDIOLOGY FOLLOWUP SUBJECTIVE: The patient with no chest pain or pressure. No palpitations. Remains status post trac h on the vent. Rhythm strip has remained in atrial fibrillation. Heart rate under good control. MEDICATIONS: Reviewed. PHYSICAL EXAMINATION: VITAL SIGNS: Temperature 98.3, heart rate of 98, blood pressure 113/57, respiration rate 18, satura ting 95%. HEENT: Normocephalic, atraumatic. Thin, cachectic female. Status post tracheostomy, on the vent. CARDIOVASCULAR: Regular rate and rhythm, systolic murmur. PULMONARY: With diffuse rhonchi. GASTROINTESTINAL: Soft, nontender. EXTREMITIES: Trivial lower extremity edema. NEUROLOGIC: Awake and alert. PSYCHIATRIC: Calm, pleasant. LABORATORY: Most recent glucose 117. ASSESSMENT AND PLAN: 1. Hypoxemic respiratory failure, status post tracheostomy, vent dependent. 2. Atrial fibrillation, chronic, on anticoagulation, heart rate control. 3. Renal failure on dialysis. 4. History of pulmonary hypertension and possibly atrial septal defect. 5. Severe anemia. 6. Status post sepsis and shock, pneumonia. She is on antibiotic treatment. RECOMMENDATIONS: We will continue with the dialysis. Fluid management will be done without to sreekanth miranda on telemetry. Heart rate currently stable. Eliquis will be continued as long as no active blee ding is noted. Vent support and respiratory care as per sales representative [employer] will be continued as well. Dictated By: AMANDA PINTO MD AV/ARNOLDO Conf#: [id number] DID#: [id number] CC: RUDDY GEE DO;*EndCC*
--- NOTE | 2016-10-18 19:30 | CONS ---
Date/Time of Note Date/Time of Note DATE: 10/18/16 TIME: 19:29 Consult Date/Type/Reason Admit Date/Time Sep 17, 2016 at 18:49 Type of Consultation: pulm Subjective no events on MV Objective Vital Signs Date Time Temp Pulse Resp B/P Pulse Ox O2 Delivery O2 Flow Rate FiO2 10/18/16 17:56 92 10/18/16 16:55 17 97 40 10/18/16 15:47 98.3 109/53 10/16/16 09:32 Nasal Cannula Intake and Output 10/17/16 10/17/16 10/18/16 15:00 23:00 07:00 Intake Total 1800 ml Output Total 2200 ml Balance -400 ml NECK: Supple. No JVD or lymphadenopathy. CARDIAC EXAM: S1, S2. No added sounds or murmurs. CHEST: clear bilaterally, No added sounds, rales or wheezes ABDOMEN: Soft, nontender. No guarding or rebound. Moderate distention EXTREMITIES: No cyanosis, clubbing edema +2 Results/Medications Result Diagram: 10/17/1660110/17/16601 Medications Current Medications Levetiracetam/ Dextrose (Keppra Iv/D5W) 105 ml @ 420 mls/hr Q12 IVPB Last administered on 10/18/16at 09:05; Admin Dose 420 MLS/HR; Start 09/18/16 at 09: 00 Collagenase (Santyl) 1 applic DAILY TOP Last administered on 10/18/16at 09:06; Admin Dose 1 APPLIC; Start 09/18/16 at 09:00 Acetaminophen (Tylenol Liquid) 650 mg Q4H PRN NGT PAIN AND OR ELEVATED TEMP Last administered on 09/29/16at 12:07; Admin Dose 650 MG; Start 09/18/16 at 08: 00 Bisacodyl (Dulcolax Supp) 10 mg DAILY PRN [place] CONSTIPATION; Start 09/18/16 at 08:00 Mupirocin (Bactroban) Apply to bilateral nares ... BID TOP Last administered on 10/18/16at 09:06; Admin Dose 1 APPLIC; Start 09/18/16 at 09:00 Mirtazapine (Remeron) 7.5 mg HS GTB Last administered on 10/17/16at 20:29; Admin Dose 7.5 MG; Start 09/18/16 at 21:00 Ondansetron HCl (Zofran Inj) 4 mg Q4H PRN IV NAUSEA AND/OR VOMITING; Start 08/24 at 08:00 Morphine Sulfate (morphine) 2 mg Q3H PRN IV PAIN LEVEL 6-10 Last administered on 09/28/16at 12:25; Admin Dose 2 MG; Start 09/18/16 at 08:00 Lorazepam (Ativan) 0.5 mg Q3H PRN IV ANXIETY; Start 09/18/16 at 08:00 IV Flush (NS 10 ml) 10 ml PRN PRN IV IV PROTOCOL Last administered on at 06:01; Admin Dose 10 ML; Start 09/18/16 at 13:00 Lansoprazole (Prevacid) 30 mg DAILY@06 PO Last administered on 10/18/16at 05:19 ; Admin Dose 30 MG; Start 09/27/16 at 06:00 Apixaban (Eliquis) 2.5 mg BID GTB Last administered on 10/18/16at 09:05; Admin Dose 2.5 MG; Start 09/30/16 at 09:00; Status Future hold Metoclopramide HCl (Reglan) 5 mg Q6 IV Last administered on 10/18/16 17:48; Admin Dose 5 MG; Start 09/30/16 at 12:00 Sildenafil Citrate (Revatio) 20 mg TID GTB Last administered on 10/18/16at 14: 11; Admin Dose 20 MG; Start 10/08/16 at 10:45 Pramoxine HCl (Proctofoam 1%) 1 applic TID [place] Last administered on 10/18/16at 13:00; Admin Dose 1 APPLIC; Start 10/10/16 at 21:00 Assessment/Plan Additional Assessment/Plan IMPRESSION: 1. Ventilatory-dependent respiratory failure. 2. Status post septic shock. 3. Decubitus ulcers and polymicrobial sepsis. Persistent leukocytosis 4. Hypernatremia. 5. End-stage renal failure on hemodialysis. 6. Underlying seizure disorder. RECS: 1. Vent support 2. BD's/CPT 3. am labs 4. TFs/free H20 5. Abx; f/u cx's WALT JUAREZ MD Oct 18, 2016 19:30
[2016-10-18] MEDS: MIRTAZAPINE 15 MG TAB GTB SCH (21:19)
[2016-10-19] VITALS (34 sets, daily range): BP systolic 101–154; BP diastolic 50–78; PULSE 92–124; RESP 12–20
[2016-10-19] MEDS: LEVALBUTEROL (HFA) 15 GM INHALER INH SCH ×6 (01:00→20:47)
[2016-10-19] MEDS: IPRATROPIUM (HFA) 12.9 GM INHALER INH SCH ×6 (01:00→20:47)
[2016-10-19] MEDS: METOCLOPRAMIDE 10 MG INJ IV SCH ×4 (01:41→18:08)
[2016-10-19] MEDS: LANSOPRAZOLE 30 MG CAP PO SCH (05:44)
[2016-10-19] MEDS: SILDENAFIL 20 MG TAB GTB SCH ×3 (09:00→21:42)
[2016-10-19] MEDS: BUDESONIDE (NEB) 0.5MG/2ML AMP HHN SCH ×2 (09:25→20:47)
[2016-10-19] MEDS: APIXABAN 5 MG TABLET GTB SCH ×2 (09:51→21:42)
[2016-10-19] MEDS: LEVETIRACETAM IV 500 MG in DEXTROSE 5% 100 ML IVPB SCH ×2 (09:52→21:42)
[2016-10-19] MEDS: PRAMOXINE 1% 15 GM RECT FOAM PR SCH ×3 (09:52→21:44)
[2016-10-19] MEDS: COLLAGENASE 30 GM TUBE TOP SCH (09:54)
[2016-10-19] MEDS: MUPIROCIN 2% 22 GM OINT TOP SCH ×2 (09:54→21:42)
--- NOTE | 2016-10-19 10:57 | PN ---
Date/Time of Note Date/Time of Note DATE: 10/19/16 TIME: 10:56 Assessment/Plan VTE Prophylaxis VTE Prophylaxis Intervention: other Lines/Catheters IV [facility]ter Type (from [facility]): permacath Urinary Cath still in place: No Assessment/Plan Chief Complaint/Hosp Course The patient is stable. No acute events overnight. No hemoptysis, hematemesis, or hematochezia, new rash, tachypnea, melena, hematuria, diaphoresis, fever d/w Dr Reddy cxr and vent settings were reviewed OBJECTIVE: HEENT: Head is normocephalic. NECK: Supple. HEART: Regular rate. LUNGS: Show diminished breath sounds at base. ABDOMEN: Soft, nontender to palpation. No rebound or guarding. EXTREMITIES: Negative for clubbing or cyanosis. No edema. DERMATOLOGIC: No rashes. MUSCULOSKELETAL: No joint effusions. NEUROLOGIC: No change in exam. MEDICATIONS: The patient's medications have been reviewed. ASSESSMENT AND PLAN: 1. Sepsis secondary to pneumonia, decubitus wound. Continue current antibiotic regimen. 2. End-stage renal disease. Continue hemodialysis, tolerating well. 3. Abdominal ascites. The patient is status post paracentesis. Continue to monitor. 4. Hyponatremia. Continue free water restriction. 5. Pulmonary hypertension. Continue sildenafil. 6. Anemia. Continue to monitor hemoglobin and hematocrit levels. Continue Epogen. 7. Seizure disorder. Continue Keppra. 8. Decubitus wound. Continue wound care. 9. Dysphagia 10. Ventilator dependent respiratory failure. Vent settings have been reviewed. Follow up with pulmonary. 11. Encephalopathy. No change. 12. Atrial fibrillation, rate controlled. Continue medical management. 13. Gastrointestinal and deep venous thrombosis prophylaxis. Continue proton pump inhibitor Problems: Exam/Review of Systems Vital Signs Vitals Vital Signs Date Time Temp Pulse Resp B/P Pulse Ox O2 Delivery O2 Flow Rate FiO2 10/19/16 09:19 102 14 96 40 10/19/16 07:54 98.6 112/53 10/19/16 00:18 Mechanical Ventilator Intake and Output 10/18/16 10/18/16 10/19/16 15:00 23:00 07:00 Intake Total 805 ml 950 ml Output Total 500 ml 100 ml Balance 305 ml 850 ml Results Result Diagram: 10/17/1602 10/17/16 0602 Medications Medications Current Medications Levetiracetam/ Dextrose (Keppra Iv/D5W) 105 ml @ 420 mls/hr Q12 IVPB Last administered on 10/19/16at 09:52; Admin Dose 420 MLS/HR; Start 09/18/16 at 09: 00 Collagenase (Santyl) 1 applic DAILY TOP Last administered on 10/19/16 09:54; Admin Dose 1 APPLIC; Start 09/18/16 at 09:00 Acetaminophen (Tylenol Liquid) 650 mg Q4H PRN NGT PAIN AND OR ELEVATED TEMP Last administered on 09/29/16at 12:07; Admin Dose 650 MG; Start 09/18/16 at 08: 00 Bisacodyl (Dulcolax Supp) 10 mg DAILY PRN [place] CONSTIPATION; Start 09/18/16 at 08:00 Mupirocin (Bactroban) Apply to bilateral nares ... BID TOP Last administered on 10/19/16at 09:54; Admin Dose 1 APPLIC; Start 09/18/16 at 09:00 Mirtazapine (Remeron) 7.5 mg HS GTB Last administered on 10/18/16at 21:19; Admin Dose 7.5 MG; Start 09/18/16 at 21:00 Ondansetron HCl (Zofran Inj) 4 mg Q4H PRN IV NAUSEA AND/OR VOMITING; Start 08/24 at 08:00 Morphine Sulfate (morphine) 2 mg Q3H PRN IV PAIN LEVEL 6-10 Last administered on 09/28/16at 12:25; Admin Dose 2 MG; Start 09/18/16 at 08:00 Lorazepam (Ativan) 0.5 mg Q3H PRN IV ANXIETY; Start 09/18/16 at 08:00 IV Flush (NS 10 ml) 10 ml PRN PRN IV IV PROTOCOL Last administered on at 06:01; Admin Dose 10 ML; Start 09/18/16 at 13:00 Lansoprazole (Prevacid) 30 mg DAILY@06 PO Last administered on 10/19/16 05:44 ; Admin Dose 30 MG; Start 09/27/16 at 06:00 Apixaban (Eliquis) 2.5 mg BID GTB Last administered on 10/19/16at 09:51; Admin Dose 2.5 MG; Start 09/30/16 at 09:00; Status Future hold Metoclopramide HCl (Reglan) 5 mg Q6 IV Last administered on 10/19/16at 05:45; Admin Dose 5 MG; Start 09/30/16 at 12:00 Sildenafil Citrate (Revatio) 20 mg TID GTB Last administered on 10/18/16at 21: 19; Admin Dose 20 MG; Start 10/08/16 at 10:45 Pramoxine HCl (Proctofoam 1%) 1 applic TID [place] Last administered on 10/19/16at 09:52; Admin Dose 1 APPLIC; Start 10/10/16 at 21:00 EWA MELISSA DO Oct 19, 2016 10:57
--- NOTE | 2016-10-19 14:04 | CONS ---
Date/Time of Note Date/Time of Note DATE: 10/19/16 TIME: 14:03 Assessment/Plan Assessment/Plan Additional Assessment/Plan ASSESSMENT: 1. Renal failure on dialysis. 2. Vent dependent respiratory failure. 3. Chronic obstructive pulmonary disease. 4. Atrial fibrillation. 5. Ascites, successful paracentesis done. 6. Dysphagia 7. G-tube clean,no leakage,tolerating feeding 8. Anemia: stable, likely from anemia of chronic disease 9. Status post septic shock. 10. Diabetes mellitus. 11. Decubitus ulcer. 12. Congestive heart failure. 13. Seizure disorder. 14. pneumonia,s/p sepsis 15.pulmonary hypertension 16 persistent leucocytosis,better 17.pressure ulcer g tube site Plan continue antibiotics per ID Reglan for gastroparesis Bactroban to g tube site. Routine G-tube site care,colostomy bag attached to g tube site.no leakage of formula wound care nurse has not seen pt. continue present care Consultation Date/Type/Reason Admit Date/Time Sep 17, 2016 at 18:49 Type of Consultation: pulm 24 HR Interval Summary Subjective hx not possible: pt non-verbal Constitutional: no complaints Exam/Review of Systems Vital Signs Vitals Vital Signs Date Time Temp Pulse Resp B/P Pulse Ox O2 Delivery O2 Flow Rate FiO2 10/19/16 13:56 108 10/19/16 13:19 17 94 40 10/19/16 11:56 99.0 129/61 10/19/16 00:18 Mechanical Ventilator Intake and Output 10/18/16 10/18/16 10/19/16 15:00 23:00 07:00 Intake Total 805 ml 950 ml Output Total 500 ml 100 ml Balance 305 ml 850 ml Exam Constitutional: alert, oriented, well developed Psych: nl mood/affect, no complaints Head: atraumatic, normocephalic Eyes: EOMI, PERRL, nl conjunctiva, nl lids, nl sclera ENMT: nl external ears & nose, nl lips & teeth, nl nasal mucosa & septum Neck: non-tender, supple Respiratory: clear to auscultation, normal air movement Cardiovascular: nl pulses, regular rate and rhythm Gastrointestinal: nl liver, spleen, non-tender, soft Musculoskeletal: nl extremities to inspection, nl gait and stance Extremities: normal pulses 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, nl mental status, nl speech, nl strength Skin: nl turgor, No rash or lesions Lymph: nl lymph nodes Results Result Diagram: 10/17/1660110/17/16601 Medications Medications Current Medications Levetiracetam/ Dextrose (Keppra Iv/D5W) 105 ml @ 420 mls/hr Q12 IVPB Last administered on 10/19/16at 09:52; Admin Dose 420 MLS/HR; Start 09/18/16 at 09: 00 Collagenase (Santyl) 1 applic DAILY TOP Last administered on 10/19/16at 09:54; Admin Dose 1 APPLIC; Start 09/18/16 at 09:00 Acetaminophen (Tylenol Liquid) 650 mg Q4H PRN NGT PAIN AND OR ELEVATED TEMP Last administered on 09/29/16at 12:07; Admin Dose 650 MG; Start 09/18/16 at 08: 00 Bisacodyl (Dulcolax Supp) 10 mg DAILY PRN [place] CONSTIPATION; Start 09/18/16 at 08:00 Mupirocin (Bactroban) Apply to bilateral nares ... BID TOP Last administered on 10/19/16at 09:54; Admin Dose 1 APPLIC; Start 09/18/16 at 09:00 Mirtazapine (Remeron) 7.5 mg HS GTB Last administered on 10/18/16at 21:19; Admin Dose 7.5 MG; Start 09/18/16 at 21:00 Ondansetron HCl (Zofran Inj) 4 mg Q4H PRN IV NAUSEA AND/OR VOMITING; Start 08/24 at 08:00 Morphine Sulfate (morphine) 2 mg Q3H PRN IV PAIN LEVEL 6-10 Last administered on 09/28/16at 12:25; Admin Dose 2 MG; Start 09/18/16 at 08:00 Lorazepam (Ativan) 0.5 mg Q3H PRN IV ANXIETY; Start 09/18/16 at 08:00 IV Flush (NS 10 ml) 10 ml PRN PRN IV IV PROTOCOL Last administered on at 06:01; Admin Dose 10 ML; Start 09/18/16 at 13:00 Lansoprazole (Prevacid) 30 mg DAILY@06 PO Last administered on 10/19/16at 05:44 ; Admin Dose 30 MG; Start 09/27/16 at 06:00 Apixaban (Eliquis) 2.5 mg BID GTB Last administered on 10/19/16 09:51; Admin Dose 2.5 MG; Start 09/30/16 at 09:00; Status Future hold Metoclopramide HCl (Reglan) 5 mg Q6 IV Last administered on 10/19/16at 12:25; Admin Dose 5 MG; Start 09/30/16 at 12:00 Sildenafil Citrate (Revatio) 20 mg TID GTB Last administered on 10/18/16at 21: 19; Admin Dose 20 MG; Start 10/08/16 at 10:45 Pramoxine HCl (Proctofoam 1%) 1 applic TID [place] Last administered on 10/19/16 09:52; Admin Dose 1 APPLIC; Start 10/10/16 at 21:00 ANNABEL CISSE MD Oct 19, 2016 14:04
--- NOTE | 2016-10-19 16:25 | CONS ---
Date/Time of Note Date/Time of Note DATE: 10/19/16 TIME: 16:22 Assessment/Plan Assessment/Plan Chief Complaint/Hosp Course ID PROGRESS NOTE 24H INTERVAL SUMMARY * Noncommunicative/Trach/Peg -> No new issues per RN * Low grade temps, WBC 13.2 * CHART REVIEWED: OFF ABX DAY #1 MICROBIOLOGY: * Endotracheal aspirate growing multidrug resistant Pseudomonas. * Blood cultures negative * Wound culture of her sacrum growing MRSA. * Urine culture growing Kelly glabrata. INDWELLING: trach, PEG, RIJ Perm-A-Cath, Left upper extremity PICC line placed on 09/18/2016. ANTIMICROBIALS: 1. Amikacin. 2. Vancomycin. 3. Flagy PHYSICAL EXAMINATION: GENERAL: Looks comfortable resting on Vent / NAD HEENT: Unremarkable NECK: Trach clean CHEST: Rise symmetrical,=> Vented course BS HEART: Pulse RRR ABDOMEN: Soft, benign - Peg EXTREMITIES: Warm, no edema SKIN: STG IV DECUB -> See photos ID ASSESSMENT 81 yo H F w/PMHx Afib, CVA, VDRF-Trach since OCT 2015, Peg, COPD, ESRD admit with: 1. s/p Sepsis w/shock => hypotension on pressors on admission RESOLVED -> Likely GNR from GNR HCAP + DECUB + ?bladder sepsis - anuric * Leukocytosis on admit * Low grade temps on admit 99.7 * Encephalopathy 2/2 #1 2. s/p GNR HCAP = (+PSAR sensitive to Amikacin = s/p ABX RX 3. Right pleural effusion, possibly underlying healthcare-associated pneumonia. 3. Acute decompensated heart failure, right-sided heart failure. Continue ultrafiltration dialysis. 4. Dysfunctional G-tube with NG tube in place. 5. ESRD-> HD w/PermCath 6. Ascites==> s/p paracentesis 09/24===> cx negative 7. STG IV coccygeal decub present on admission * Wound Cx(+)MRSA 8. (+)Glabrata UTI -> Urostasis 2nd anuric 9. Oral candidiasis ( + )MRSA Nares ->Bactroban INVASIVES: PICC (09/18), Trach, Peg, NGT, PermCath ABX ALLERGY: PCN/SULFA CURRENT ABX: ABX => OFF ABX DAY #1 s/p Vanco IV + Amikacin + Flagyl ID RECOMMENDATIONS Slow progress - see how she tolerates OFF ABX Further recs per ID team follow up and clinical course . . Problems: Consultation Date/Type/Reason Admit Date/Time Sep 17, 2016 at 18:49 Type of Consultation: ID Exam/Review of Systems Vital Signs Vitals Vital Signs Date Time Temp Pulse Resp B/P Pulse Ox O2 Delivery O2 Flow Rate FiO2 10/19/16 15:56 89 15 98 40 10/19/16 11:56 99.0 129/61 10/19/16 00:18 Mechanical Ventilator Intake and Output 10/18/16 10/18/16 10/19/16 15:00 23:00 07:00 Intake Total 805 ml 950 ml Output Total 500 ml 100 ml Balance 305 ml 850 ml Results Result Diagram: 10/17/1602 10/17/16 0602 Medications Medications Current Medications Levetiracetam/ Dextrose (Keppra Iv/D5W) 105 ml @ 420 mls/hr Q12 IVPB Last administered on 10/19/16at 09:52; Admin Dose 420 MLS/HR; Start 09/18/16 at 09: 00 Collagenase (Santyl) 1 applic DAILY TOP Last administered on 10/19/16at 09:54; Admin Dose 1 APPLIC; Start 09/18/16 at 09:00 Acetaminophen (Tylenol Liquid) 650 mg Q4H PRN NGT PAIN AND OR ELEVATED TEMP Last administered on 09/29/16at 12:07; Admin Dose 650 MG; Start 09/18/16 at 08: 00 Bisacodyl (Dulcolax Supp) 10 mg DAILY PRN [place] CONSTIPATION; Start 09/18/16 at 08:00 Mupirocin (Bactroban) Apply to bilateral nares ... BID TOP Last administered on 10/19/16at 09:54; Admin Dose 1 APPLIC; Start 09/18/16 at 09:00 Mirtazapine (Remeron) 7.5 mg HS GTB Last administered on 10/18/16at 21:19; Admin Dose 7.5 MG; Start 09/18/16 at 21:00 Ondansetron HCl (Zofran Inj) 4 mg Q4H PRN IV NAUSEA AND/OR VOMITING; Start 08/24 at 08:00 Morphine Sulfate (morphine) 2 mg Q3H PRN IV PAIN LEVEL 6-10 Last administered on 09/28/16at 12:25; Admin Dose 2 MG; Start 09/18/16 at 08:00 Lorazepam (Ativan) 0.5 mg Q3H PRN IV ANXIETY; Start 09/18/16 at 08:00 IV Flush (NS 10 ml) 10 ml PRN PRN IV IV PROTOCOL Last administered on 06:01; Admin Dose 10 ML; Start 09/18/16 at 13:00 Lansoprazole (Prevacid) 30 mg DAILY@06 PO Last administered on 10/19/16 05:44 ; Admin Dose 30 MG; Start 09/27/16 at 06:00 Apixaban (Eliquis) 2.5 mg BID GTB Last administered on 10/19/16at 09:51; Admin Dose 2.5 MG; Start 09/30/16 at 09:00; Status Future hold Metoclopramide HCl (Reglan) 5 mg Q6 IV Last administered on 10/19/16at 12:25; Admin Dose 5 MG; Start 09/30/16 at 12:00 Sildenafil Citrate (Revatio) 20 mg TID GTB Last administered on 10/18/16at 21: 19; Admin Dose 20 MG; Start 10/08/16 at 10:45 Pramoxine HCl (Proctofoam 1%) 1 applic TID [place] Last administered on 10/19/16at 09:52; Admin Dose 1 APPLIC; Start 10/10/16 at 21:00 JOEY RODRIGUEZ NP Oct 19, 2016 16:24
--- NOTE | 2016-10-19 17:18 | CONS ---
Date/Time of Note Date/Time of Note DATE: 10/19/16 TIME: 17:16 Consult Date/Type/Reason Admit Date/Time Sep 17, 2016 at 18:49 Type of Consultation: Pulm Subjective No events on [facility] vent Objective Vital Signs Date Time Temp Pulse Resp B/P Pulse Ox O2 Delivery O2 Flow Rate FiO2 10/19/16 16:54 103 10/19/16 15:56 15 98 40 10/19/16 11:56 99.0 129/61 10/19/16 00:18 Mechanical Ventilator Intake and Output 10/18/16 10/18/16 10/19/16 15:00 23:00 07:00 Intake Total 805 ml 950 ml Output Total 500 ml 100 ml Balance 305 ml 850 ml HEENT: Neck supple; no JVD; no LAD; trach site clean CVS: RRR, S1 and S2 CHEST: Clear with occ rhonchi ABD: Soft, NT, + BS EXT: No c/c/ tr edema Results/Medications Result Diagram: 10/17/1602 10/17/16 0602 Medications Current Medications Levetiracetam/ Dextrose (Keppra Iv/D5W) 105 ml @ 420 mls/hr Q12 IVPB Last administered on 10/19/16at 09:52; Admin Dose 420 MLS/HR; Start 09/18/16 at 09: 00 Collagenase (Santyl) 1 applic DAILY TOP Last administered on 10/19/16at 09:54; Admin Dose 1 APPLIC; Start 09/18/16 at 09:00 Acetaminophen (Tylenol Liquid) 650 mg Q4H PRN NGT PAIN AND OR ELEVATED TEMP Last administered on 09/29/16at 12:07; Admin Dose 650 MG; Start 09/18/16 at 08: 00 Bisacodyl (Dulcolax Supp) 10 mg DAILY PRN [place] CONSTIPATION; Start 09/18/16 at 08:00 Mupirocin (Bactroban) Apply to bilateral nares ... BID TOP Last administered on 10/19/16at 09:54; Admin Dose 1 APPLIC; Start 09/18/16 at 09:00 Mirtazapine (Remeron) 7.5 mg HS GTB Last administered on 10/18/16at 21:19; Admin Dose 7.5 MG; Start 09/18/16 at 21:00 Ondansetron HCl (Zofran Inj) 4 mg Q4H PRN IV NAUSEA AND/OR VOMITING; Start 08/24 at 08:00 Morphine Sulfate (morphine) 2 mg Q3H PRN IV PAIN LEVEL 6-10 Last administered on 09/28/16 12:25; Admin Dose 2 MG; Start 09/18/16 at 08:00 Lorazepam (Ativan) 0.5 mg Q3H PRN IV ANXIETY; Start 09/18/16 at 08:00 IV Flush (NS 10 ml) 10 ml PRN PRN IV IV PROTOCOL Last administered on 06:01; Admin Dose 10 ML; Start 09/18/16 at 13:00 Lansoprazole (Prevacid) 30 mg DAILY@06 PO Last administered on 10/19/16 05:44 ; Admin Dose 30 MG; Start 09/27/16 at 06:00 Apixaban (Eliquis) 2.5 mg BID GTB Last administered on 10/19/16 09:51; Admin Dose 2.5 MG; Start 09/30/16 at 09:00; Status Future hold Metoclopramide HCl (Reglan) 5 mg Q6 IV Last administered on 10/19/16 12:25; Admin Dose 5 MG; Start 09/30/16 at 12:00 Sildenafil Citrate (Revatio) 20 mg TID GTB Last administered on 10/18/16at 21: 19; Admin Dose 20 MG; Start 10/08/16 at 10:45 Pramoxine HCl (Proctofoam 1%) 1 applic TID MD Last administered on 10/19/16 09:52; Admin Dose 1 APPLIC; Start 10/10/16 at 21:00 Assessment/Plan Additional Assessment/Plan IMPRESSION: 1. Ventilatory-dependent respiratory failure. 2. Status post septic shock. 3. Decubitus ulcers and polymicrobial sepsis. Persistent leukocytosis 4. Hypernatremia. 5. End-stage renal failure on hemodialysis. 6. Underlying seizure disorder. RECS: 1. Vent support 2. BD's/CPT 3. Am labs 4. TFs/free H20 5. Abx; f/u cx's WALT JUAREZ MD Oct 19, 2016 17:18
[2016-10-19] MEDS: EPOETIN 10000 UNITS/1 ML INJ (ESRD) SC SCH (17:26)
--- NOTE | 2016-10-19 17:55 | PN ---
DATE: 10/19/2016 CARDIOLOGY FOLLOWUP SUBJECTIVE: Discussed with the staff. Rhythm strip was reviewed. The patient remains in atrial fi brillation, heart under good control. Status post tracheostomy, still on the vent. Currently on di alysis. MEDICATIONS: Reviewed. PHYSICAL EXAMINATION: VITAL SIGNS: Temperature 99, T-max is 99.5, heart rate of 95, blood pressure 129/61, respiratory ra te of 20. HEENT: Normocephalic, atraumatic. Pupils are equal. NECK: Status post tracheostomy. CARDIOVASCULAR: Irregular rate, rhythm, systolic murmur. PULMONARY: With no wheezes anteriorly. Minimal rhonchi, diffuse. GASTROINTESTINAL: Soft, nontender. EXTREMITIES: No significant lower extremity edema. NEUROLOGIC: Awake and alert. PSYCHIATRIC: Appears to be calm and pleasant. ASSESSMENT: 1. Hypoxemic respiratory failure, status post tracheostomy, vent dependent. 2. Atrial fibrillation, chronic, on anticoagulation, heart rate control. 3. Renal failure, currently on hemodialysis. 4. Pulmonary hypertension. Possible atrial septal defect. 5. Anemia. 6. Status post sepsis, shock, pneumonia. RECOMMENDATIONS: Antibiotic as per ID. We will continue with the hemodialysis. Will be managed as per renal. Vent support and respiratory care will be continued as well. Heart rate is currently u nder good control. Nutritional support will be continued. Anticoagulation as long as she can ace ate it will be continued as well. Dictated By: AMANDA PINTO MD AV/ARNOLDO Conf#: [id number] DID#: [id number] CC: EWA MELISSA DO; RUDDY GEE DO;*EndCC*
[2016-10-19] MEDS: MIRTAZAPINE 15 MG TAB GTB SCH (21:42)
[2016-10-20] VITALS (24 sets, daily range): BP systolic 94–133; BP diastolic 52–62; PULSE 100–126; RESP 12–19
[2016-10-20] MEDS: METOCLOPRAMIDE 10 MG INJ IV SCH ×5 (00:40→23:49)
[2016-10-20] MEDS: IPRATROPIUM (HFA) 12.9 GM INHALER INH SCH ×6 (00:56→21:34)
[2016-10-20] MEDS: LEVALBUTEROL (HFA) 15 GM INHALER INH SCH ×6 (00:56→21:35)
[2016-10-20 06:03] LABS: BASOPHIL # 0.1 10^3/ul (0.0-0.1); BASOPHILS % 0.4 % (0.0-2.0); EOSINOPHILS % 0.1 % (0.0-7.0); HEMOGLOBIN 8.9 g/dl (12.0-16.0); LYMPHOCYTES # 1.7 10^3/ul (0.8-2.9); LYMPHOCYTES % 9.8 % (15.0-51.0); MEAN CORPUSCULAR HEMOGLOBIN 31.7 pg (29.0-33.0); MEAN CORPUSCULAR HGB CONC 31.8 g/dl (32.0-37.0); MEAN CORPUSCULAR VOLUME 99.7 fl (82.0-101.0); MEAN PLATELET VOLUME 7.9 fl (7.4-10.4); MONOCYTE # 1.4 10^3/ul (0.3-0.9); MONOCYTES % 8.2 % (0.0-11.0); NEUTROPHILS % 81.5 % (39.0-77.0); PLATELET COUNT 288 10^3/UL (140-440); RED BLOOD COUNT 2.81 10^6/ul (4.20-5.40); RED CELL DISTRIBUTION WIDTH 22.8 % (11.5-14.5); UNCORRECTED WBC 17.2 10^3/ul (4.8-10.8); WHITE BLOOD COUNT 17.2 10^3/ul (4.8-10.8)
[2016-10-20 06:13] LABS: CONDITION 1; LH ANALYZER COMMENTS 1
[2016-10-20 06:23] LABS: POTASSIUM 4.7 mmol/L (3.5-5.1)
[2016-10-20] MEDS: LANSOPRAZOLE 30 MG CAP PO SCH (06:23)
[2016-10-20 06:25] LABS: CREATININE 1.25 mg/dl (0.44-1.00)
[2016-10-20 06:26] LABS: PHOSPHORUS 3.9 mg/dl (2.5-4.9)
[2016-10-20 06:27] LABS: CALCIUM 8.3 mg/dl (8.4-10.2); MAGNESIUM 2.1 mg/dl (1.7-2.5)
[2016-10-20] MEDS: PRAMOXINE 1% 15 GM RECT FOAM PR SCH ×3 (09:00→21:12)
[2016-10-20] MEDS: BUDESONIDE (NEB) 0.5MG/2ML AMP HHN SCH ×2 (09:11→19:28)
[2016-10-20] MEDS: LEVETIRACETAM IV 500 MG in DEXTROSE 5% 100 ML IVPB SCH ×2 (10:02→21:11)
[2016-10-20] MEDS: APIXABAN 5 MG TABLET GTB SCH ×2 (10:02→21:10)
[2016-10-20] MEDS: SILDENAFIL 20 MG TAB GTB SCH ×3 (10:03→21:10)
[2016-10-20] MEDS: COLLAGENASE 30 GM TUBE TOP SCH (10:03)
[2016-10-20] MEDS: MUPIROCIN 2% 22 GM OINT TOP SCH ×2 (10:03→21:12)
--- NOTE | 2016-10-20 10:03 | PN ---
DATE: 10/20/2016 SUBJECTIVE: The patient is stable, no acute events overnight. Had hemodialysis, tolerated it well. The patient is having lot of discharge secretions from the G-tube site, other events noted. OBJECTIVE: VITAL SIGNS: Blood pressure is 118/57, respirations 17, pulse 110, temperature 98.2. HEENT: Head is normocephalic. NECK: Supple. HEART: Regular rate. LUNGS: Show diminished breath sounds at the base. ABDOMEN: Soft, distended. Positive G-tube site. Positive colostomy around G-tube site with noted serosanguineous drainage. EXTREMITIES: Negative for clubbing, cyanosis, no edema. DERMATOLOGIC: No rashes. MUSCULOSKELETAL: No joint effusions. NEUROLOGIC: No change in exam. MEDICATIONS: Reviewed. LABORATORY DATA: Showed sodium 135, potassium 4.7, chloride 96, bicarbonate 34, BUN 37, creatinine 1.25. White count 17.2, hemoglobin 8.9, hematocrit 28.2, platelet count is 288. ASSESSMENT AND PLAN: 1. Sepsis secondary to pneumonia and decubitus wound. The patient is currently stable. Continue c urrent antibiotic regimen. 2. End-stage renal disease. The patient had hemodialysis yesterday, tolerated it well. 3. Abdominal ascites. Etiology secondary to right-sided heart failure, volume overload. Continue paracentesis as needed. 4. G-tube site leakage. The patient has noted secretions from the G-tube site. We will follow up with GI. The patient may require another paracentesis. 5. Hypernatremia, resolved. Continue free water restriction. 6. Pulmonary hypertension. Continue sildenafil. 7. Anemia. Continue to monitor hemoglobin and hematocrit levels. Continue Epogen. 8. Seizure disorder. Continue Keppra. 9. Decubitus wound. Will continue wound care. 10. History of dysphagia status post PEG. Continue tube feeding. 11. Ventilator-dependent respiratory failure. Vent settings have been reviewed. ABG is reviewed. Continue to monitor. Follow up with pulmonary. 12. Encephalopathy. No change. 13. Atrial fibrillation. Continue current medical management. 14. Gastrointestinal and deep venous thrombosis prophylaxis. Continue PPI, Eliquis. 15. Disposition. The patient is being transferred to a subacute facility when bed available. Dictated By: RUDDY BUSTILLOS/ARNOLDO Conf#: [id number] [facility]#: [id number]
--- NOTE | 2016-10-20 19:06 | CONS ---
Date/Time of Note Date/Time of Note DATE: 10/20/16 TIME: 19:03 Assessment/Plan Assessment/Plan Additional Assessment/Plan Additional Assessment/Plan ASSESSMENT: 1. Renal failure on dialysis. 2. Vent dependent respiratory failure. 3. Chronic obstructive pulmonary disease. 4. Atrial fibrillation. 5. Ascites, successful paracentesis done. 6. Dysphagia 7. G-tube clean,no leakage,tolerating feeding 8. Anemia: stable, likely from anemia of chronic disease 9. Status post septic shock. 10. Diabetes mellitus. 11. Decubitus ulcer. 12. Congestive heart failure. 13. Seizure disorder. 14. pneumonia,s/p sepsis 15.pulmonary hypertension 16 persistent leucocytosis,better 17.pressure ulcer g tube site Plan continue antibiotics per ID Reglan for gastroparesis Bactroban to g tube site. Routine G-tube site care,colostomy bag attached to g tube site.no leakage of formula,or even ascites fluid wound care nurse has not seen pt. continue present care paracentesis when abdomen more distended Consultation Date/Type/Reason Admit Date/Time Sep 17, 2016 at 18:49 Type of Consultation: Pulm 24 HR Interval Summary Constitutional: no complaints Exam/Review of Systems Vital Signs Vitals Vital Signs Date Time Temp Pulse Resp B/P Pulse Ox O2 Delivery O2 Flow Rate FiO2 10/20/16 17:40 108 18 95 40 10/20/16 16:05 98.5 94/52 10/19/16 00:18 Mechanical Ventilator Intake and Output 10/19/16 10/19/16 10/20/16 15:00 23:00 07:00 Intake Total 1305 ml 850 ml Output Total 2300 ml 200 ml Balance -995 ml 650 ml Exam Constitutional: alert, oriented, well developed Psych: nl mood/affect, no complaints Head: atraumatic, normocephalic Eyes: EOMI, PERRL, nl conjunctiva, nl lids, nl sclera ENMT: nl external ears & nose, nl lips & teeth, nl nasal mucosa & septum Neck: non-tender, supple Respiratory: clear to auscultation, normal air movement Cardiovascular: nl pulses, regular rate and rhythm Gastrointestinal: nl liver, spleen, non-tender, soft Musculoskeletal: nl extremities to inspection, nl gait and stance Extremities: normal pulses Neurological: BENCH PATTERNMAKER METAL II-XII intact, nl mental status, nl speech, nl strength Skin: nl turgor, No rash or lesions Lymph: nl lymph nodes Results Result Diagram: 10/20/1652010/20/16520 Results 24 hrs Laboratory Tests Test 10/20/16 05:21 Anion Gap 10 Basophils # 0.1 Basophils % 0.4 Blood Morphology Comment Blood Urea Nitrogen 37 H Calcium Level 8.3 L Carbon Dioxide Level 34 H Chloride Level 96 L Creatinine 1.25 H Eosinophils # 0.0 Eosinophils % 0.1 Glucose Level 93 Hematocrit 28.0 L Hemoglobin 8.9 L Lymphocytes # 1.7 Lymphocytes % 9.8 L Magnesium Level 2.1 Mean Corpuscular Hemoglobin 31.7 Mean Corpuscular Hemoglobin Concent 31.8 L Mean Corpuscular Volume 99.7 Mean Platelet Volume 7.9 Monocytes # 1.4 H Monocytes % 8.2 Neutrophils # 14.0 H Neutrophils % 81.5 H Nucleated Red Blood Cells # 0.0 Nucleated Red Blood Cells % 0.0 Phosphorus Level 3.9 Platelet Count 288 Potassium Level 4.7 Red Blood Count 2.81 L Red Cell Distribution Width 22.8 H Sodium Level 135 White Blood Count 17.2 #H Medications Medications Current Medications Levetiracetam/ Dextrose (Keppra Iv/D5W) 105 ml @ 420 mls/hr Q12 IVPB Last administered on 10/20/16at 10:02; Admin Dose 420 MLS/HR; Start 09/18/16 at 09: 00 Collagenase (Santyl) 1 applic DAILY TOP Last administered on 10/20/16at 10:03; Admin Dose 1 APPLIC; Start 09/18/16 at 09:00 Acetaminophen (Tylenol Liquid) 650 mg Q4H PRN NGT PAIN AND OR ELEVATED TEMP Last administered on 09/29/16at 12:07; Admin Dose 650 MG; Start 09/18/16 at 08: 00 Bisacodyl (Dulcolax Supp) 10 mg DAILY PRN [place] CONSTIPATION; Start 09/18/16 at 08:00 Mupirocin (Bactroban) Apply to bilateral nares ... BID TOP Last administered on 10/20/16 10:03; Admin Dose 1 APPLIC; Start 09/18/16 at 09:00 Mirtazapine (Remeron) 7.5 mg HS GTB Last administered on 10/19/16at 21:42; Admin Dose 7.5 MG; Start 09/18/16 at 21:00 Ondansetron HCl (Zofran Inj) 4 mg Q4H PRN IV NAUSEA AND/OR VOMITING; Start 08/24 at 08:00 Morphine Sulfate (morphine) 2 mg Q3H PRN IV PAIN LEVEL 6-10 Last administered on 09/28/16at 12:25; Admin Dose 2 MG; Start 09/18/16 at 08:00 Lorazepam (Ativan) 0.5 mg Q3H PRN IV ANXIETY; Start 09/18/16 at 08:00 IV Flush (NS 10 ml) 10 ml PRN PRN IV IV PROTOCOL Last administered on at 06:01; Admin Dose 10 ML; Start 09/18/16 at 13:00 Lansoprazole (Prevacid) 30 mg DAILY@06 PO Last administered on 10/20/16at 06:23 ; Admin Dose 30 MG; Start 09/27/16 at 06:00 Apixaban (Eliquis) 2.5 mg BID GTB Last administered on 10/20/16at 10:02; Admin Dose 2.5 MG; Start 09/30/16 at 09:00; Status Future hold Metoclopramide HCl (Reglan) 5 mg Q6 IV Last administered on 10/20/16at 18:37; Admin Dose 5 MG; Start 09/30/16 at 12:00 Sildenafil Citrate (Revatio) 20 mg TID GTB Last administered on 10/20/16 12: 58; Admin Dose 20 MG; Start 10/08/16 at 10:45 Pramoxine HCl (Proctofoam 1%) 1 applic TID [place] Last administered on 10/20/16at 12:58; Admin Dose 1 APPLIC; Start 10/10/16 at 21:00 ANNABEL CISSE MD Oct 20, 2016 19:06
--- NOTE | 2016-10-20 20:44 | PN ---
DATE: SUBJECTIVE: No acute events overnight. The patient is lying comfortably in bed. She is noncommuni cative. No fevers overnight. WBC today 17.2 with platelets 288, neutrophils 81.5. INDWELLINGS: The patient has trach, PEG, right IJ Perm-A-Cath, left upper extremity PICC line. ANTIMICROBIALS: She is off antibiotics day #2. PHYSICAL EXAMINATION: GENERAL: This is a fragile, chronically ill-appearing, elderly woman who is lying comfortably in be d. HEENT: Head atraumatic, normocephalic. Sclerae anicteric. Buccal mucosa dry. NECK: Supple. Tracheostomy present. CHEST: Rise symmetrical. Breath sounds diminished to bases. HEART: S1, S2. ABDOMEN: Soft. Bowel tones present. EXTREMITIES: Without cyanosis. ASSESSMENT: 1. Systemic inflammatory response syndrome. 2. Respiratory failure, status post pneumonia. 3. Multiple decubiti. 4. End-stage renal disease, hemodialysis dependent. 5. Status post Kelly glabrata urinary tract infection. 6. History of cerebrovascular accident. 7. Ascites, status post recurrent paracentesis with ascitic fluid cultures previously had been nega tive. 8. ALLERGY TO PENICILLIN AND SULFA. PLAN: The patient remains clinically stable. No fevers. She received antibiotics for 4 weeks. We are going to continue observing her. If she spikes fever, we will panculture her. Dictated By: RAISSA ROA [employer]PER[employer]OR [employer] for TUAN NELSON MD NI/NTS Conf#: [id number] DID#: [id number] CC: EWA MELISSA DO;*End*
[2016-10-20] MEDS: MIRTAZAPINE 15 MG TAB GTB SCH (21:10)
--- NOTE | 2016-10-20 23:20 | PN ---
DATE: 10/20/2016 CARDIOLOGY FOLLOWUP SUBJECTIVE: Reviewed with the staff, reviewed with the family at the bedside. No new cardiac event s. The patient remains in atrial fibrillation. Heart rate has remained overall stable. No reporte d chest pain or pressure. The patient is still on the vent. MEDICATIONS: Reviewed. PHYSICAL EXAMINATION: VITAL SIGNS: Temperature 98.5, heart rate of 109, blood pressure 94/52, respiration rate of 17. HEENT: Normocephalic, atraumatic. Pupils are equal. GENERAL: Cachectic, thin female. CARDIOVASCULAR: Irregularly irregular. PULMONARY: With mild rhonchi, diffuse. GASTROINTESTINAL: Soft, nontender. EXTREMITIES: No significant edema. NEUROLOGIC: Awake and alert. PSYCHIATRIC: Calm and very pleasant. LABORATORY: Sodium 135, potassium 4.7, BUN of 37, creatinine 1.25, glucose 103. WBC of 17.2, hemog lobin 9.9, platelets 288. ASSESSMENT AND PLAN: 1. Hypoxemic respiratory failure, status post tracheostomy, vent dependent. 2. Status post sepsis and pneumonia. 3. Atrial fibrillation, chronic anticoagulation, and heart rate control. 4. Abdominal ascites thought related to right heart failure. 5. History of pulmonary hypertension. 6. Anemia. 7. Seizure disorder. 8. Dysphagia, status post percutaneous endoscopic gastrostomy placement. 9. Encephalopathy, currently stable. RECOMMENDATIONS: We will continue with the current cardiac care. Anticoagulation as tolerated will be continued. Dialysis as per renal. Antibiotic is managed as per pulmonary. Will continue to mo nitor on telemetry. Dictated By: AMANDA PINTO MD AV/ARNOLDO Conf#: [id number] DID#: [id number] CC: EWA EMLISSA DO; RUDDY GEE DO;*EndCC*
[2016-10-21] VITALS (29 sets, daily range): BP systolic 78–128; BP diastolic 36–62; PULSE 97–131; RESP 12–20
--- NOTE | 2016-10-21 00:17 | PN ---
DATE: REASON FOR FOLLOWUP: Ventilator management. SUBJECTIVE: The patient remains stable, no new events. PHYSICAL EXAMINATION: Vital signs remain within normal limits. Exam is unchanged. IMPRESSION AND PLAN: 1. Ventilator-dependent respiratory failure. 2. Status post septic shock. 3. Polymicrobial sepsis. 4. End-stage renal failure on hemodialysis. PLAN: 1. Continue vent support. 2. Continue ID recommendations. 3. Continue wound care. 4. Continue DVT and GI prophylaxis. Dictated By: JULIA HERNANDEZ MD SV/ARNOLDO Conf#: [id number] DID#: [id number]
[2016-10-21] MEDS: IPRATROPIUM (HFA) 12.9 GM INHALER INH SCH ×6 (01:04→22:11)
[2016-10-21] MEDS: LEVALBUTEROL (HFA) 15 GM INHALER INH SCH ×6 (01:04→22:12)
[2016-10-21] MEDS: METOCLOPRAMIDE 10 MG INJ IV SCH ×4 (05:15→23:33)
[2016-10-21] MEDS: LANSOPRAZOLE 30 MG CAP PO SCH (05:15)
[2016-10-21 06:37] LABS: BASOPHIL # 0.1 10^3/ul (0.0-0.1); BASOPHILS % 0.4 % (0.0-2.0); EOSINOPHILS % 0.2 % (0.0-7.0); HEMATOCRIT 28.5 % (37.0-47.0); LYMPHOCYTES % 15.8 % (15.0-51.0); MEAN CORPUSCULAR HEMOGLOBIN 31.5 pg (29.0-33.0); MEAN CORPUSCULAR HGB CONC 31.4 g/dl (32.0-37.0); MEAN CORPUSCULAR VOLUME 100.5 fl (82.0-101.0); MEAN PLATELET VOLUME 7.7 fl (7.4-10.4); MONOCYTES % 10.1 % (0.0-11.0); NEUTROPHIL # 14.1 10^3/ul (1.6-7.5); NEUTROPHILS % 73.5 % (39.0-77.0); PLATELET COUNT 349 10^3/UL (140-440); RED BLOOD COUNT 2.84 10^6/ul (4.20-5.40); RED CELL DISTRIBUTION WIDTH 22.3 % (11.5-14.5); UNCORRECTED WBC 19.2 10^3/ul (4.8-10.8); WHITE BLOOD COUNT 19.2 10^3/ul (4.8-10.8)
[2016-10-21 06:40] LABS: CONDITION 1; LH ANALYZER COMMENTS 1
[2016-10-21 07:03] LABS: POTASSIUM 5.4 mmol/L (3.5-5.1)
[2016-10-21 07:06] LABS: CREATININE 1.62 mg/dl (0.44-1.00)
[2016-10-21 07:07] LABS: CALCIUM 8.1 mg/dl (8.4-10.2); MAGNESIUM 2.2 mg/dl (1.7-2.5); PHOSPHORUS 4.6 mg/dl (2.5-4.9)
[2016-10-21] MEDS: COLLAGENASE 30 GM TUBE TOP SCH ×2 (09:00→14:54)
[2016-10-21] MEDS: BUDESONIDE (NEB) 0.5MG/2ML AMP HHN SCH ×2 (09:11→21:57)
[2016-10-21] MEDS: SILDENAFIL 20 MG TAB GTB SCH ×3 (09:38→21:00)
[2016-10-21] MEDS: APIXABAN 5 MG TABLET GTB SCH ×2 (09:38→21:01)
[2016-10-21] MEDS: LEVETIRACETAM IV 500 MG in DEXTROSE 5% 100 ML IVPB SCH ×2 (09:38→21:00)
[2016-10-21] MEDS: MUPIROCIN 2% 22 GM OINT TOP SCH ×2 (09:39→21:02)
[2016-10-21] MEDS: PRAMOXINE 1% 15 GM RECT FOAM PR SCH ×3 (09:40→21:01)
--- NOTE | 2016-10-21 10:54 | CONS ---
Date/Time of Note Date/Time of Note DATE: 10/21/16 TIME: 10:53 Assessment/Plan Assessment/Plan Additional Assessment/Plan ASSESSMENT: 1. Renal failure on dialysis. 2. Vent dependent respiratory failure. 3. Chronic obstructive pulmonary disease. 4. Atrial fibrillation. 5. Ascites, successful paracentesis done. 6. Dysphagia 7. G-tube clean,no leakage,tolerating feeding 8. Anemia: stable, likely from anemia of chronic disease 9. Status post septic shock. 10. Diabetes mellitus. 11. Decubitus ulcer. 12. Congestive heart failure. 13. Seizure disorder. 14. pneumonia,s/p sepsis 15.pulmonary hypertension 16 persistent leucocytosis,better 17.pressure ulcer g tube site Plan continue antibiotics per ID Reglan for gastroparesis Bactroban to g tube site. Routine G-tube site care,colostomy bag attached to g tube site.no leakage of formula,or even ascites fluid wound care nurse has not seen pt. continue present care paracentesis when abdomen more distended swallow eval. Consultation Date/Type/Reason Admit Date/Time Sep 17, 2016 at 18:49 Type of Consultation: Pulm 24 HR Interval Summary Free Text/Dictation wants to eat Exam/Review of Systems Vital Signs Vitals Vital Signs Date Time Temp Pulse Resp B/P Pulse Ox O2 Delivery O2 Flow Rate FiO2 10/21/16 09:18 104 12 96 40 10/21/16 07:55 98.2 120/58 10/19/16 00:18 Mechanical Ventilator Intake and Output 10/20/16 10/20/16 10/21/16 15:00 23:00 07:00 Intake Total 835 ml 570 ml Output Total 50 ml Balance 785 ml 570 ml Exam Constitutional: alert, oriented, well developed Psych: nl mood/affect, no complaints Head: atraumatic, normocephalic Eyes: EOMI, PERRL, nl conjunctiva, nl lids, nl sclera ENMT: nl external ears & nose, nl lips & teeth, nl nasal mucosa & septum Neck: non-tender, supple Respiratory: clear to auscultation, normal air movement Cardiovascular: nl pulses, regular rate and rhythm Gastrointestinal: nl liver, spleen, non-tender, soft Musculoskeletal: nl extremities to inspection, nl gait and stance Extremities: normal pulses Neurological: OFFICE CASHIER II-XII intact, nl mental status, nl speech, nl strength Skin: nl turgor, No rash or lesions Lymph: nl lymph nodes Results Result Diagram: 10/21/16 0552 10/21/1652 Results 24 hrs Laboratory Tests Test 10/21/16 05:52 Anion Gap 11 Basophils # 0.1 Basophils % 0.4 Blood Morphology Comment Blood Urea Nitrogen 52 H Calcium Level 8.1 L Carbon Dioxide Level 32 H Chloride Level 93 L Creatinine 1.62 H Eosinophils # 0.0 Eosinophils % 0.2 Glucose Level 109 Hematocrit 28.5 L Hemoglobin 9.0 L Lymphocytes # 3.0 H Lymphocytes % 15.8 Magnesium Level 2.2 Mean Corpuscular Hemoglobin 31.5 Mean Corpuscular Hemoglobin Concent 31.4 L Mean Corpuscular Volume 100.5 Mean Platelet Volume 7.7 Monocytes # 2.0 H Monocytes % 10.1 Neutrophils # 14.1 H Neutrophils % 73.5 Nucleated Red Blood Cells # 0.0 Nucleated Red Blood Cells % 0.0 Phosphorus Level 4.6 Platelet Count 349 # Potassium Level 5.4 H Red Blood Count 2.84 L Red Cell Distribution Width 22.3 H Sodium Level 131 L White Blood Count 19.2 H Medications Medications Current Medications Levetiracetam/ Dextrose (Keppra Iv/D5W) 105 ml @ 420 mls/hr Q12 IVPB Last administered on 10/21/16at 09:38; Admin Dose 420 MLS/HR; Start 09/18/16 at 09: 00 Collagenase (Santyl) 1 applic DAILY TOP Last administered on 10/20/16at 10:03; Admin Dose 1 APPLIC; Start 09/18/16 at 09:00 Acetaminophen (Tylenol Liquid) 650 mg Q4H PRN NGT PAIN AND OR ELEVATED TEMP Last administered on 09/29/16at 12:07; Admin Dose 650 MG; Start 09/18/16 at 08: 00 Bisacodyl (Dulcolax Supp) 10 mg DAILY PRN [place] CONSTIPATION; Start 09/18/16 at 08:00 Mupirocin (Bactroban) Apply to bilateral nares ... BID TOP Last administered on 10/21/16at 09:39; Admin Dose 1 APPLIC; Start 09/18/16 at 09:00 Mirtazapine (Remeron) 7.5 mg HS GTB Last administered on 10/20/16at 21:10; Admin Dose 7.5 MG; Start 09/18/16 at 21:00 Ondansetron HCl (Zofran Inj) 4 mg Q4H PRN IV NAUSEA AND/OR VOMITING; Start 08/24 at 08:00 Morphine Sulfate (morphine) 2 mg Q3H PRN IV PAIN LEVEL 6-10 Last administered on 09/28/16at 12:25; Admin Dose 2 MG; Start 09/18/16 at 08:00 Lorazepam (Ativan) 0.5 mg Q3H PRN IV ANXIETY; Start 09/18/16 at 08:00 IV Flush (NS 10 ml) 10 ml PRN PRN IV IV PROTOCOL Last administered on 06:01; Admin Dose 10 ML; Start 09/18/16 at 13:00 Lansoprazole (Prevacid) 30 mg DAILY@06 PO Last administered on 10/21/16 05:15 ; Admin Dose 30 MG; Start 09/27/16 at 06:00 Apixaban (Eliquis) 2.5 mg BID GTB Last administered on 10/21/16 09:38; Admin Dose 2.5 MG; Start 09/30/16 at 09:00; Status Future hold Metoclopramide HCl (Reglan) 5 mg Q6 IV Last administered on 10/21/16 05:15; Admin Dose 5 MG; Start 09/30/16 at 12:00 Sildenafil Citrate (Revatio) 20 mg TID GTB Last administered on 10/21/16 09: 38; Admin Dose 20 MG; Start 10/08/16 at 10:45 Pramoxine HCl (Proctofoam 1%) 1 applic TID [place] Last administered on 10/21/16at 09:40; Admin Dose 1 APPLIC; Start 10/10/16 at 21:00 ANNABEL CISSE MD Oct 21, 2016 10:54
--- NOTE | 2016-10-21 12:31 | CONS ---
Date/Time of Note Date/Time of Note DATE: 10/21/16 TIME: 12:30 Consult Date/Type/Reason Admit Date/Time Sep 17, 2016 at 18:49 Type of Consultation: Pulm Subjective No significant changes Objective Vital Signs Date Time Temp Pulse Resp B/P Pulse Ox O2 Delivery O2 Flow Rate FiO2 10/21/16 12:25 106 10/21/16 11:48 98.9 20 118/59 93 10/21/16 11:00 30 10/19/16 00:18 Mechanical Ventilator Intake and Output 10/20/16 10/20/16 10/21/16 15:00 23:00 07:00 Intake Total 835 ml 570 ml Output Total 50 ml Balance 785 ml 570 ml GENERAL: Chronically ill-appearing lady on mechanical ventilation comfortable at rest VITAL SIGNS: per chart NECK: Supple. No JVD or lymphadenopathy. CARDIAC EXAM: S1, S2. No added sounds or murmurs. CHEST: clear bilaterally, No added sounds, rales or wheezes ABDOMEN: Soft, nontender. No guarding or rebound. Moderate distention EXTREMITIES: No cyanosis, clubbing edema +2 NEUROLOGIC: Generalized weakness. Results/Medications Result Diagram: 10/21/16 0552 10/21/16 0552 Results 24 hrs Laboratory Tests Test 10/21/16 05:52 Anion Gap 11 Basophils # 0.1 Basophils % 0.4 Blood Morphology Comment Blood Urea Nitrogen 52 H Calcium Level 8.1 L Carbon Dioxide Level 32 H Chloride Level 93 L Creatinine 1.62 H Eosinophils # 0.0 Eosinophils % 0.2 Glucose Level 109 Hematocrit 28.5 L Hemoglobin 9.0 L Lymphocytes # 3.0 H Lymphocytes % 15.8 Magnesium Level 2.2 Mean Corpuscular Hemoglobin 31.5 Mean Corpuscular Hemoglobin Concent 31.4 L Mean Corpuscular Volume 100.5 Mean Platelet Volume 7.7 Monocytes # 2.0 H Monocytes % 10.1 Neutrophils # 14.1 H Neutrophils % 73.5 Nucleated Red Blood Cells # 0.0 Nucleated Red Blood Cells % 0.0 Phosphorus Level 4.6 Platelet Count 349 # Potassium Level 5.4 H Red Blood Count 2.84 L Red Cell Distribution Width 22.3 H Sodium Level 131 L White Blood Count 19.2 H Medications Current Medications Levetiracetam/ Dextrose (Keppra Iv/D5W) 105 ml @ 420 mls/hr Q12 IVPB Last administered on 10/21/16 09:38; Admin Dose 420 MLS/HR; Start 09/18/16 at 09: 00 Collagenase (Santyl) 1 applic DAILY TOP Last administered on 10/20/16at 10:03; Admin Dose 1 APPLIC; Start 09/18/16 at 09:00 Acetaminophen (Tylenol Liquid) 650 mg Q4H PRN NGT PAIN AND OR ELEVATED TEMP Last administered on 09/29/16at 12:07; Admin Dose 650 MG; Start 09/18/16 at 08: 00 Bisacodyl (Dulcolax Supp) 10 mg DAILY PRN [place] CONSTIPATION; Start 09/18/16 at 08:00 Mupirocin (Bactroban) Apply to bilateral nares ... BID TOP Last administered on 10/21/16 09:39; Admin Dose 1 APPLIC; Start 09/18/16 at 09:00 Mirtazapine (Remeron) 7.5 mg HS GTB Last administered on 10/20/16at 21:10; Admin Dose 7.5 MG; Start 09/18/16 at 21:00 Ondansetron HCl (Zofran Inj) 4 mg Q4H PRN IV NAUSEA AND/OR VOMITING; Start 08/24 at 08:00 Morphine Sulfate (morphine) 2 mg Q3H PRN IV PAIN LEVEL 6-10 Last administered on 09/28/16at 12:25; Admin Dose 2 MG; Start 09/18/16 at 08:00 Lorazepam (Ativan) 0.5 mg Q3H PRN IV ANXIETY; Start 09/18/16 at 08:00 IV Flush (NS 10 ml) 10 ml PRN PRN IV IV PROTOCOL Last administered on at 06:01; Admin Dose 10 ML; Start 09/18/16 at 13:00 Lansoprazole (Prevacid) 30 mg DAILY@06 PO Last administered on 10/21/16 05:15 ; Admin Dose 30 MG; Start 09/27/16 at 06:00 Apixaban (Eliquis) 2.5 mg BID GTB Last administered on 10/21/16 09:38; Admin Dose 2.5 MG; Start 09/30/16 at 09:00; Status Future hold Metoclopramide HCl (Reglan) 5 mg Q6 IV Last administered on 10/21/16at 12:28; Admin Dose 5 MG; Start 09/30/16 at 12:00 Sildenafil Citrate (Revatio) 20 mg TID GTB Last administered on 10/21/16at 12: 28; Admin Dose 20 MG; Start 10/08/16 at 10:45 Pramoxine HCl (Proctofoam 1%) 1 applic TID [place] Last administered on 10/21/16at 09:40; Admin Dose 1 APPLIC; Start 10/10/16 at 21:00 Assessment/Plan Chief Complaint/Hosp Course IMPRESSION AND PLAN: 1. Ventilator-dependent respiratory failure. 2. Status post septic shock. 3. Polymicrobial sepsis. 4. End-stage renal failure on hemodialysis. 5. G tube malfunction / leak PLAN: 1. Continue vent support. 2. Continue ID recommendations. 3. Continue wound care. 4. Continue DVT and GI prophylaxis. 5. GI recs Problems: JULIA HERNANDEZ MD, [facility] Oct 21, 2016 12:31
--- NOTE | 2016-10-21 13:44 | PN ---
DATE: 10/21/2016 SUBJECTIVE: The patient is stable, no acute events overnight. No fevers, chills, nausea or vomitin g. No shortness of breath. OBJECTIVE: VITAL SIGNS: Blood pressure is 118/50, respiratory rate 20, pulse 120, temperature 98.9. HEENT: Head is normocephalic. NECK: Supple. HEART: Tachycardic. LUNGS: Show diminished breath sounds at base. ABDOMEN: Soft, distended, nontender to palpation. Positive G-tube. EXTREMITIES: Negative for clubbing, cyanosis, edema. DERMATOLOGIC: No rashes. MUSCULOSKELETAL: Positive decubitus wound. No change. NEUROLOGIC: No change in exam. MEDICATIONS: Have been reviewed. LABORATORY DATA: Shows sodium 131, potassium 5.4, chloride 93, BUN 52, creatinine 1.62. White coun t 19.2, hemoglobin 9.0, hematocrit 28.5, platelet count is 349. ASSESSMENT AND PLAN: 1. Sepsis secondary to pneumonia, decubitus wound. Continue current treatment plan. Continue woun d care. The patient is status post antibiotic therapy. 2. Leukocytosis, etiology is likely reactive. The patient has completed 12 weeks of antibiotics. Will continue to monitor. Follow up with Infectious Disease. The patient was recently pancultured. 3. End-stage renal disease. Plan for hemodialysis today. 4. Hyperkalemia secondary to end-stage renal disease. The patient will be dialyzed on 2 potassium bath. 5. Abdominal ascites, etiology secondary to heart failure, volume overload. 6. End-stage renal disease. Will continue paracentesis as needed. 7. G-tube site leakage. Etiology is likely from underlying ascites. The patient has been seen by GI. Will continue to monitor, continue paracentesis as needed. Follow up with GI for further recom mendations. 8. Pulmonary hypertension, continue sildenafil. 9. Hyponatremia, improving. Continue free water restriction. 10. Anemia. Continue to monitor hemoglobin and hematocrit levels and continue Epogen. 11. Seizure disorder. Continue Keppra. 12. Decubitus wound. Continue local wound care. 13. Dysphagia/ . Continue tube feeds. 14. Ventilatory dependent respiratory failure. Vent settings reviewed, , continue to monitor. 15. Encephalopathy. No change. 16. Atrial fibrillation, currently rate controlled. Continue to monitor. 17. Gastrointestinal and deep venous thrombosis prophylaxis. Continue proton pump inhibitor and El iquis. 18. Disposition. The patient is pending transfer to subacute facility once a bed is available. Dictated By: RUDDY BUSTILLOS/ARNOLDO Conf#: [id number] DID#: [id number]
--- NOTE | 2016-10-21 14:51 | CONS ---
Date/Time of Note Date/Time of Note DATE: 10/21/16 TIME: 14:50 Consult Date/Type/Reason Admit Date/Time Sep 17, 2016 at 18:49 Type of Consultation: ID Subjective no acute events, afebrile, lying comfortably in bed Objective Vital Signs Date Time Temp Pulse Resp B/P Pulse Ox O2 Delivery O2 Flow Rate FiO2 10/21/16 13:00 93 12 96 40 10/21/16 11:48 98.9 118/59 10/19/16 00:18 Mechanical Ventilator Intake and Output 10/20/16 10/20/16 10/21/16 15:00 23:00 07:00 Intake Total 835 ml 570 ml Output Total 50 ml Balance 785 ml 570 ml Results/Medications Result Diagram: 10/21/16 0552 10/21/16 0552 Results 24 hrs Laboratory Tests Test 10/21/16 05:52 Anion Gap 11 Basophils # 0.1 Basophils % 0.4 Blood Morphology Comment Blood Urea Nitrogen 52 H Calcium Level 8.1 L Carbon Dioxide Level 32 H Chloride Level 93 L Creatinine 1.62 H Eosinophils # 0.0 Eosinophils % 0.2 Glucose Level 109 Hematocrit 28.5 L Hemoglobin 9.0 L Lymphocytes # 3.0 H Lymphocytes % 15.8 Magnesium Level 2.2 Mean Corpuscular Hemoglobin 31.5 Mean Corpuscular Hemoglobin Concent 31.4 L Mean Corpuscular Volume 100.5 Mean Platelet Volume 7.7 Monocytes # 2.0 H Monocytes % 10.1 Neutrophils # 14.1 H Neutrophils % 73.5 Nucleated Red Blood Cells # 0.0 Nucleated Red Blood Cells % 0.0 Phosphorus Level 4.6 Platelet Count 349 # Potassium Level 5.4 H Red Blood Count 2.84 L Red Cell Distribution Width 22.3 H Sodium Level 131 L White Blood Count 19.2 H Medications Current Medications Levetiracetam/ Dextrose (Keppra Iv/D5W) 105 ml @ 420 mls/hr Q12 IVPB Last administered on 10/21/16at 09:38; Admin Dose 420 MLS/HR; Start 09/18/16 at 09: 00 Collagenase (Santyl) 1 applic DAILY TOP Last administered on 10/20/16at 10:03; Admin Dose 1 APPLIC; Start 09/18/16 at 09:00 Acetaminophen (Tylenol Liquid) 650 mg Q4H PRN NGT PAIN AND OR ELEVATED TEMP Last administered on 09/29/16at 12:07; Admin Dose 650 MG; Start 09/18/16 at 08: 00 Bisacodyl (Dulcolax Supp) 10 mg DAILY PRN [place] CONSTIPATION; Start 09/18/16 at 08:00 Mupirocin (Bactroban) Apply to bilateral nares ... BID TOP Last administered on 10/21/16 09:39; Admin Dose 1 APPLIC; Start 09/18/16 at 09:00 Mirtazapine (Remeron) 7.5 mg HS GTB Last administered on 10/20/16 21:10; Admin Dose 7.5 MG; Start 09/18/16 at 21:00 Ondansetron HCl (Zofran Inj) 4 mg Q4H PRN IV NAUSEA AND/OR VOMITING; Start 08/24 at 08:00 Morphine Sulfate (morphine) 2 mg Q3H PRN IV PAIN LEVEL 6-10 Last administered on 09/28/16at 12:25; Admin Dose 2 MG; Start 09/18/16 at 08:00 Lorazepam (Ativan) 0.5 mg Q3H PRN IV ANXIETY; Start 09/18/16 at 08:00 IV Flush (NS 10 ml) 10 ml PRN PRN IV IV PROTOCOL Last administered on at 06:01; Admin Dose 10 ML; Start 09/18/16 at 13:00 Lansoprazole (Prevacid) 30 mg DAILY@06 PO Last administered on 10/21/16 05:15 ; Admin Dose 30 MG; Start 09/27/16 at 06:00 Apixaban (Eliquis) 2.5 mg BID GTB Last administered on 10/21/16at 09:38; Admin Dose 2.5 MG; Start 09/30/16 at 09:00; Status Future hold Metoclopramide HCl (Reglan) 5 mg Q6 IV Last administered on 10/21/16 12:28; Admin Dose 5 MG; Start 09/30/16 at 12:00 Sildenafil Citrate (Revatio) 20 mg TID GTB Last administered on 10/21/16at 12: 28; Admin Dose 20 MG; Start 10/08/16 at 10:45 Pramoxine HCl (Proctofoam 1%) 1 applic TID [place] Last administered on 10/21/16at 09:40; Admin Dose 1 APPLIC; Start 10/10/16 at 21:00 Assessment/Plan Chief Complaint/Hosp Course INDWELLING: trach, PEG, RIJ Perm-A-Cath, Left upper extremity PICC line placed on 09/18/2016. PHYSICAL EXAMINATION: GENERAL: Fragile, chronically ill-appearing, elderly woman who is lying comfortably in bed. HEENT: Head atraumatic, normocephalic. Sclerae anicteric. Buccal mucosa dry. NECK: Supple. Tracheostomy present. CHEST: Rise symmetrical. Breath sounds diminished to bases. HEART: S1, S2. ABDOMEN: Soft, bowel tones present. EXTREMITIES: Without cyanosis. ASSESSMENT: 1. Ongoing sepsis, status post shock. 2. S/p healthcare-associated pneumonia with parapneumonic pleural effusion and sputum culture growing multi-drug resistant Pseudomonas aeruginosa. 3. Methicillin-resistant Staphylococcus aureus infected decubitus. 4. GT site cellulitis==> GI follows 4. S/p joe glabrata urinary tract infection. 5. Methicillin-resistant Staphylococcus aureus nares colonization. 6. End-stage renal disease, hemodialysis dependent. 7. History of cerebrovascular accident. 8. Ascites==> s/p paracentesis 09/24, 10/14 9. Sacral decub, poss OM 10. ALLERGY TO PENICILLIN AND SULFA. PLAN: Clinically unchanged, with increased leukocytosis, no fevers, will repeat cx's. Completed 4 weeks abx. [facility] staff Problems: RAISSA ROA NP Oct 21, 2016 14:51
--- NOTE | 2016-10-21 17:28 | PN ---
DATE: 10/21/2016 CARDIOLOGY FOLLOWUP SUBJECTIVE: Discussed with the staff. Rhythm strip was reviewed. The patient remains in atrial fi brillation. Status post tracheostomy, on the vent. Heart rate is under control. MEDICATIONS: Reviewed. PHYSICAL EXAMINATION: VITAL SIGNS: Temperature 98.9, heart rate of 93, blood pressure ____/59, respiratory rate of 12. HEENT: Normocephalic, atraumatic. Thin female. Status post tracheostomy, on the vent. CARDIOVASCULAR: Irregularly irregular. PULMONARY: With no wheezes, with diffuse rhonchi though. GASTROINTESTINAL: Soft, nontender. EXTREMITIES: With trivial lower extremity edema. NEUROLOGIC: Awake. LABORATORY: WBC of 19.2, hemoglobin 9, platelets of 349. Sodium 131, potassium 5.4, BUN of 52, cre atinine 1.62, glucose 109. ASSESSMENT AND PLAN: 1. Hypoxemic respiratory failure, status post tracheostomy, vent dependent. 2. Atrial fibrillation, chronic, on anticoagulation. Heart rate controlled. 3. Sepsis and pneumonia, currently improving. 4. Abdominal ascites. 5. Pulmonary hypertension. 6. Anemia. 7. Seizure. 8. Dysphagia, status post percutaneous endoscopic gastrostomy placement. RECOMMENDATIONS: Will continue supportive care. Hemodialysis will be continued and managed as per renal. We will continue with the respiratory care. Antibiotic as per ID's recommendation. We will continue to monitor on telemetry. Dictated By: AMANDA PINTO MD AV/ARNOLDO Conf#: [id number] DID#: [id number] CC: EWA MELISSA DO; RUDDY GEE DO;*EndCC*
[2016-10-21] MEDS: ALBUMIN HUMAN 25% 100 ML IV PRN (17:47)
[2016-10-21] MEDS: MIRTAZAPINE 15 MG TAB GTB SCH (21:00)
[2016-10-21] MEDS: EPOETIN 10000 UNITS/1 ML INJ (ESRD) SC SCH (21:17)
[2016-10-22] VITALS (25 sets, daily range): BP systolic 96–124; BP diastolic 50–66; PULSE 87–119; RESP 12–25
[2016-10-22] MEDS: IPRATROPIUM (HFA) 12.9 GM INHALER INH SCH ×6 (01:45→20:45)
[2016-10-22] MEDS: LEVALBUTEROL (HFA) 15 GM INHALER INH SCH ×6 (01:45→20:45)
[2016-10-22] MEDS: LANSOPRAZOLE 30 MG CAP PO SCH (05:03)
[2016-10-22] MEDS: METOCLOPRAMIDE 10 MG INJ IV SCH ×4 (05:03→23:36)
[2016-10-22 06:47] LABS: BASOPHILS % 0.2 % (0.0-2.0); HEMATOCRIT 26.7 % (37.0-47.0); HEMOGLOBIN 8.3 g/dl (12.0-16.0); LYMPHOCYTES % 6.1 % (15.0-51.0); MEAN CORPUSCULAR HEMOGLOBIN 31.7 pg (29.0-33.0); MEAN CORPUSCULAR HGB CONC 31.2 g/dl (32.0-37.0); MEAN CORPUSCULAR VOLUME 101.6 fl (82.0-101.0); MEAN PLATELET VOLUME 7.6 fl (7.4-10.4); MONOCYTE # 1.3 10^3/ul (0.3-0.9); MONOCYTES % 8.1 % (0.0-11.0); NEUTROPHIL # 13.8 10^3/ul (1.6-7.5); NEUTROPHILS % 85.6 % (39.0-77.0); PLATELET COUNT 303 10^3/UL (140-440); RED BLOOD COUNT 2.63 10^6/ul (4.20-5.40); RED CELL DISTRIBUTION WIDTH 22.2 % (11.5-14.5); UNCORRECTED WBC 16.1 10^3/ul (4.8-10.8); WHITE BLOOD COUNT 16.1 10^3/ul (4.8-10.8)
[2016-10-22 06:54] LABS: CONDITION 1; LH ANALYZER COMMENTS 1
[2016-10-22 07:00] LABS: POTASSIUM 4.5 mmol/L (3.5-5.1)
[2016-10-22 07:03] LABS: CREATININE 1.4 mg/dl (0.44-1.00)
[2016-10-22 07:04] LABS: CALCIUM 8.1 mg/dl (8.4-10.2); MAGNESIUM 2.1 mg/dl (1.7-2.5); PHOSPHORUS 4.1 mg/dl (2.5-4.9)
[2016-10-22] MEDS ORDERED: DIGOXIN 500 MCG INJ IV ONE (09:00)
[2016-10-22] MEDS: COLLAGENASE 30 GM TUBE TOP SCH ×2 (09:00→10:11)
[2016-10-22] MEDS: SILDENAFIL 20 MG TAB GTB SCH ×3 (09:00→22:14)
[2016-10-22] MEDS: BUDESONIDE (NEB) 0.5MG/2ML AMP HHN SCH ×2 (09:17→19:23)
[2016-10-22] MEDS: LEVETIRACETAM IV 500 MG in DEXTROSE 5% 100 ML IVPB SCH ×2 (09:39→22:14)
[2016-10-22] MEDS: PRAMOXINE 1% 15 GM RECT FOAM PR SCH ×3 (09:40→22:15)
[2016-10-22] MEDS: MUPIROCIN 2% 22 GM OINT TOP SCH ×2 (09:41→22:16)
[2016-10-22] MEDS: APIXABAN 5 MG TABLET GTB SCH ×2 (09:42→22:13)
--- NOTE | 2016-10-22 10:31 | PN ---
DATE: 10/22/2016 SUBJECTIVE: The patient had hemodialysis yesterday, tolerated well without any complications. No o ther acute events noted. OBJECTIVE: VITAL SIGNS: Blood pressure is 96/50, respirations 25, pulse 111, temperature 98.0. INTAKE AND OUTPUT: The patient 2 liters in with 1 liter out. HEENT: Head is normocephalic. NECK: Supple. HEART: Regular rate. LUNGS: Show diminished breath sounds at base. ABDOMEN: Soft, nontender to palpation without rebound or guarding. The patient is distended with o stomy bag with minimal output and a G-tube. The ostomy bag is over the G-tube site. EXTREMITIES: Positive for clubbing, cyanosis, edema. DERMATOLOGIC: No rashes. MUSCULOSKELETAL: No joint effusions. NEUROLOGIC: No change in exam. MEDICATIONS: The patient's medications have been reviewed. ASSESSMENT AND PLAN: 1. Sepsis secondary to pneumonia, decubitus wound. The patient has completed antibiotic course. W e will continue to monitor. 2. Leukocytosis, likely reactive. The patient has completed 4 weeks of antibiotics. There is no a ctive evidence of infection. Continue to monitor. Follow up with Infectious Disease. 3. End-stage renal disease. Continue dialysis. Plan for dialysis tomorrow. 4. Hyperkalemia secondary to end-stage renal disease, resolved. 5. Hyponatremia, resolved. 6. Abdominal ascites secondary to heart failure. 7. End-stage renal disease. Will continue paracentesis as needed. 8. Pulmonary hypertension. Continue sildenafil. 9. Decubitus wound. Continue wound care. 10. Anemia. Continue to monitor hemoglobin and hematocrit levels. Continue Epogen. 11. Seizure disorder. Continue Keppra. 12. Dysphagia. Status post percutaneous endoscopic gastrostomy. Continue tube feeding. 13. Ventilatory dependent respiratory failure. Vent settings have been reviewed. Continue to sreekanth tor. 14. Encephalopathy. No change. 15. Atrial fibrillation, currently rate controlled. Continue medical management. 16. Gastrointestinal and deep venous thrombosis prophylaxis. Continue PPI and Eliquis. DISPOSITION: The patient is pending transfer to subacute facility when bed is available. Dictated By: RUDDY BUSTILLOS/ARNOLDO Conf#: [id number] DID#: [id number]
--- NOTE | 2016-10-22 10:52 | PN ---
DATE: 10/22/2016 CARDIOLOGY FOLLOWUP SUBJECTIVE: The patient appeared more lethargic. This is status post trach on the vent, remains in atrial fibrillation. Heart overall stable, but slightly elevated. MEDICATIONS: Reviewed. PHYSICAL EXAMINATION: VITAL SIGNS: Temperature 98, heart rate of 111, blood pressure 96/50, respiration of 25. HEENT: Normocephalic, atraumatic. NECK: Status post tracheostomy, on the vent. CARDIOVASCULAR: Irregularly irregular. PULMONARY: Anteriorly with no wheezes. GASTROINTESTINAL: Soft, nontender. EXTREMITIES: Trivial edema. NEUROLOGIC: Lethargic. PSYCHIATRIC: Unable to assess. LABORATORY: WBC of 16.1, hemoglobin 8.3, platelets 303. Sodium 137, potassium 4.5, BUN of 39, crea tinine 1.4, glucose 131. ASSESSMENT AND PLAN: 1. Hypoxemic respiratory failure, status post sepsis. 2. Atrial fibrillation, appeared to be chronic, on anticoagulation. 3. Anemia. 4. Abdominal ascites. 5. Pulmonary hypertension. 6. History of seizure disorder. RECOMMENDATIONS: 1. Will continue supportive care. 2. We will give one dose of digoxin and try to control the heart rate, it is slightly better now. Will avoid overloading digoxin to avoid toxicity. 3. Hemodialysis as per Renal will be continued. Dictated By: AMANDA LARA/ARNOLDO Conf#: [id number] DID#: [id number] CC: RUDDY GEE DO;*EndCC*
--- NOTE | 2016-10-22 13:18 | CONS ---
Date/Time of Note Date/Time of Note DATE: 10/22/16 TIME: 13:17 Consult Date/Type/Reason Admit Date/Time Sep 17, 2016 at 18:49 Type of Consultation: pulmonary Subjective no new events Objective Vital Signs Date Time Temp Pulse Resp B/P Pulse Ox O2 Delivery O2 Flow Rate FiO2 10/22/16 12:21 110 10/22/16 11:34 12 98 40 10/22/16 11:24 97.6 120/59 10/19/16 00:18 Mechanical Ventilator Intake and Output 10/21/16 10/21/16 10/22/16 15:00 23:00 07:00 Intake Total 1785 ml 456 ml Output Total 2000 ml Balance -215 ml 456 ml GENERAL: Chronically ill-appearing lady on mechanical ventilation comfortable at rest VITAL SIGNS: per chart NECK: Supple. No JVD or lymphadenopathy. CARDIAC EXAM: S1, S2. No added sounds or murmurs. CHEST: clear bilaterally, No added sounds, rales or wheezes ABDOMEN: Soft, nontender. No guarding or rebound. Moderate distention EXTREMITIES: No cyanosis, clubbing edema +2 NEUROLOGIC: Generalized weakness. Results/Medications Result Diagram: 10/22/16 0610 10/22/16 0610 Results 24 hrs Laboratory Tests Test 10/22/16 06:10 Anion Gap 12 Basophils # 0.0 Basophils % 0.2 Blood Morphology Comment Blood Urea Nitrogen 39 #H Calcium Level 8.1 L Carbon Dioxide Level 33 H Chloride Level 97 Creatinine 1.40 H Eosinophils # 0.0 Eosinophils % 0.0 Glucose Level 131 Hematocrit 26.7 L Hemoglobin 8.3 L Lymphocytes # 1.0 Lymphocytes % 6.1 L Magnesium Level 2.1 Mean Corpuscular Hemoglobin 31.7 Mean Corpuscular Hemoglobin Concent 31.2 L Mean Corpuscular Volume 101.6 H Mean Platelet Volume 7.6 Monocytes # 1.3 H Monocytes % 8.1 Neutrophils # 13.8 H Neutrophils % 85.6 H Nucleated Red Blood Cells # 0.0 Nucleated Red Blood Cells % 0.0 Phosphorus Level 4.1 Platelet Count 303 Potassium Level 4.5 Red Blood Count 2.63 L Red Cell Distribution Width 22.2 H Sodium Level 137 White Blood Count 16.1 H Medications Current Medications Levetiracetam/ Dextrose (Keppra Iv/D5W) 105 ml @ 420 mls/hr Q12 IVPB Last administered on 10/22/16at 09:39; Admin Dose 420 MLS/HR; Start 09/18/16 at 09: 00 Collagenase (Santyl) 1 applic DAILY TOP Last administered on 10/22/16at 10:11; Admin Dose 1 APPLIC; Start 09/18/16 at 09:00 Acetaminophen (Tylenol Liquid) 650 mg Q4H PRN NGT PAIN AND OR ELEVATED TEMP Last administered on 09/29/16at 12:07; Admin Dose 650 MG; Start 09/18/16 at 08: 00 Bisacodyl (Dulcolax Supp) 10 mg DAILY PRN [place] CONSTIPATION; Start 09/18/16 at 08:00 Mupirocin (Bactroban) Apply to bilateral nares ... BID TOP Last administered on 10/22/16 09:41; Admin Dose 1 APPLIC; Start 09/18/16 at 09:00 Mirtazapine (Remeron) 7.5 mg HS GTB Last administered on 10/21/16at 21:00; Admin Dose 7.5 MG; Start 09/18/16 at 21:00 Ondansetron HCl (Zofran Inj) 4 mg Q4H PRN IV NAUSEA AND/OR VOMITING; Start 08/24 at 08:00 Morphine Sulfate (morphine) 2 mg Q3H PRN IV PAIN LEVEL 6-10 Last administered on 09/28/16at 12:25; Admin Dose 2 MG; Start 09/18/16 at 08:00 Lorazepam (Ativan) 0.5 mg Q3H PRN IV ANXIETY; Start 09/18/16 at 08:00 IV Flush (NS 10 ml) 10 ml PRN PRN IV IV PROTOCOL Last administered on at 06:01; Admin Dose 10 ML; Start 09/18/16 at 13:00 Lansoprazole (Prevacid) 30 mg DAILY@06 PO Last administered on 10/22/16 05:03 ; Admin Dose 30 MG; Start 09/27/16 at 06:00 Apixaban (Eliquis) 2.5 mg BID GTB Last administered on 10/22/16 09:42; Admin Dose 2.5 MG; Start 09/30/16 at 09:00; Status Future hold Metoclopramide HCl (Reglan) 5 mg Q6 IV Last administered on 10/22/16at 12:32; Admin Dose 5 MG; Start 09/30/16 at 12:00 Sildenafil Citrate (Revatio) 20 mg TID GTB Last administered on 10/22/16at 12: 33; Admin Dose 20 MG; Start 10/08/16 at 10:45 Pramoxine HCl (Proctofoam 1%) 1 applic TID [place] Last administered on 10/22/16at 12:34; Admin Dose 1 APPLIC; Start 10/10/16 at 21:00 Assessment/Plan Chief Complaint/Hosp Course IMPRESSION AND PLAN: 1. Ventilator-dependent respiratory failure. 2. Status post septic shock. 3. Polymicrobial sepsis. 4. End-stage renal failure on hemodialysis. 5. G tube malfunction / leak PLAN: 1. Continue vent support. 2. Continue ID recommendations. 3. Continue wound care. 4. Continue DVT and GI prophylaxis. 5. GI recs Problems: JULIA HERNANDEZ MD, [facility] Oct 22, 2016 13:18
--- NOTE | 2016-10-22 14:33 | PN ---
DATE: 10/22/2016 INFECTIOUS DISEASE PROGRESS NOTE SUBJECTIVE: The patient is lying comfortably in bed, family at bedside. No fevers. She is in no d istress. LABORATORY DATA: WBC today 16.1, platelets 33,- neutrophils 85.6, BUN 39, creatinine 1.40. INDWELLINGS: Trach, PEG, [place], right chest PermCath and PICC line. PHYSICAL EXAMINATION: GENERAL: This is a fragile, elderly woman who is lying comfortably in bed. The patient is nonverba l, noncommunicative. HEENT: Head atraumatic, normocephalic. Sclerae anicteric. Buccal mucosa dry. NECK: Supple. Tracheostomy present. CHEST: Rise symmetrical. Breath sounds diminished to bases. HEART: S1, S2. ABDOMEN: Distended, soft. Bowel sounds present. EXTREMITIES: With trace edema. ASSESSMENT: 1. Persistent leukocytosis, multifactorial. 2. Status post shock. 3. Status post pneumonia with loculated pleural effusion. 4. Recurrent ascites, status post multiple paracenteses with cultures being negative. 5. End-stage renal disease, hemodialysis dependent. 6. Seizure disorder. 7. Sacral decubitus. PLAN: The patient remains clinically unchanged. Afebrile, with leukocytosis that is stable, pendin g repeat blood cultures. She completed 4 weeks of antibiotics, and we are going to observe her off antimicrobial therapy for now. Dictated By: RAISSA ROA APPLICATIONS ARCHITECT for TUAN NELSON MD NI/NTS Conf#: [id number] DID#: [id number]
[2016-10-22] MEDS: ALTEPLASE (CATHFLO) 2 MG INJ CATHETER PRN ×2 (17:07→23:27)
--- NOTE | 2016-10-22 19:26 | CONS ---
Date/Time of Note Date/Time of Note DATE: 10/22/16 TIME: 19:25 Assessment/Plan Assessment/Plan Additional Assessment/Plan Additional Assessment/Plan ASSESSMENT: 1. Renal failure on dialysis. 2. Vent dependent respiratory failure. 3. Chronic obstructive pulmonary disease. 4. Atrial fibrillation. 5. Ascites, successful paracentesis done. 6. Dysphagia 7. G-tube clean,no leakage,tolerating feeding 8. Anemia: stable, likely from anemia of chronic disease 9. Status post septic shock. 10. Diabetes mellitus. 11. Decubitus ulcer. 12. Congestive heart failure. 13. Seizure disorder. 14. pneumonia,s/p sepsis 15.pulmonary hypertension 16 persistent leucocytosis,better 17.pressure ulcer g tube site Plan continue antibiotics per ID Reglan for gastroparesis Bactroban to g tube site. Routine G-tube site care,colostomy bag attached to g tube site.no leakage of formula,or even ascites fluid wound care nurse has not seen pt. continue present care paracentesis when abdomen more distended swallow evaluation noted,awaiting for PMV valve Consultation Date/Type/Reason Admit Date/Time Sep 17, 2016 at 18:49 Type of Consultation: pulmonary 24 HR Interval Summary Constitutional: improved, no complaints Exam/Review of Systems Vital Signs Vitals Vital Signs Date Time Temp Pulse Resp B/P Pulse Ox O2 Delivery O2 Flow Rate FiO2 10/22/16 17:30 89 12 96 40 10/22/16 15:30 97.9 124/66 10/19/16 00:18 Mechanical Ventilator Intake and Output 10/21/16 10/21/16 10/22/16 15:00 23:00 07:00 Intake Total 1785 ml 456 ml Output Total 2000 ml Balance -215 ml 456 ml Exam Constitutional: alert, oriented, well developed Psych: nl mood/affect, no complaints Head: atraumatic, normocephalic Eyes: EOMI, PERRL, nl conjunctiva, nl lids, nl sclera ENMT: nl external ears & nose, nl lips & teeth, nl nasal mucosa & septum Neck: non-tender, supple Respiratory: clear to auscultation, normal air movement Cardiovascular: nl pulses, regular rate and rhythm Gastrointestinal: nl liver, spleen, non-tender, soft Musculoskeletal: nl extremities to inspection, nl gait and stance Extremities: normal pulses Neurological: [employer] II-XII intact, nl mental status, nl speech, nl strength Skin: nl turgor, No rash or lesions Lymph: nl lymph nodes Results Result Diagram: 10/22/16 0610 10/22/16 0610 Results 24 hrs Laboratory Tests Test 10/22/16 06:10 Anion Gap 12 Basophils # 0.0 Basophils % 0.2 Blood Morphology Comment Blood Urea Nitrogen 39 #H Calcium Level 8.1 L Carbon Dioxide Level 33 H Chloride Level 97 Creatinine 1.40 H Eosinophils # 0.0 Eosinophils % 0.0 Glucose Level 131 Hematocrit 26.7 L Hemoglobin 8.3 L Lymphocytes # 1.0 Lymphocytes % 6.1 L Magnesium Level 2.1 Mean Corpuscular Hemoglobin 31.7 Mean Corpuscular Hemoglobin Concent 31.2 L Mean Corpuscular Volume 101.6 H Mean Platelet Volume 7.6 Monocytes # 1.3 H Monocytes % 8.1 Neutrophils # 13.8 H Neutrophils % 85.6 H Nucleated Red Blood Cells # 0.0 Nucleated Red Blood Cells % 0.0 Phosphorus Level 4.1 Platelet Count 303 Potassium Level 4.5 Red Blood Count 2.63 L Red Cell Distribution Width 22.2 H Sodium Level 137 White Blood Count 16.1 H Medications Medications Current Medications Levetiracetam/ Dextrose (Keppra Iv/D5W) 105 ml @ 420 mls/hr Q12 IVPB Last administered on 10/22/16at 09:39; Admin Dose 420 MLS/HR; Start 09/18/16 at 09: 00 Collagenase (Santyl) 1 applic DAILY TOP Last administered on 10/22/16at 10:11; Admin Dose 1 APPLIC; Start 09/18/16 at 09:00 Acetaminophen (Tylenol Liquid) 650 mg Q4H PRN NGT PAIN AND OR ELEVATED TEMP Last administered on 09/29/16at 12:07; Admin Dose 650 MG; Start 09/18/16 at 08: 00 Bisacodyl (Dulcolax Supp) 10 mg DAILY PRN [place] CONSTIPATION; Start 09/18/16 at 08:00 Mupirocin (Bactroban) Apply to bilateral nares ... BID TOP Last administered on 10/22/16at 09:41; Admin Dose 1 APPLIC; Start 09/18/16 at 09:00 Mirtazapine (Remeron) 7.5 mg HS GTB Last administered on 10/21/16 21:00; Admin Dose 7.5 MG; Start 09/18/16 at 21:00 Ondansetron HCl (Zofran Inj) 4 mg Q4H PRN IV NAUSEA AND/OR VOMITING; Start 08/24 at 08:00 Morphine Sulfate (morphine) 2 mg Q3H PRN IV PAIN LEVEL 6-10 Last administered on 09/28/16at 12:25; Admin Dose 2 MG; Start 09/18/16 at 08:00 Lorazepam (Ativan) 0.5 mg Q3H PRN IV ANXIETY; Start 09/18/16 at 08:00 IV Flush (NS 10 ml) 10 ml PRN PRN IV IV PROTOCOL Last administered on 06:01; Admin Dose 10 ML; Start 09/18/16 at 13:00 Lansoprazole (Prevacid) 30 mg DAILY@06 PO Last administered on 10/22/16 05:03 ; Admin Dose 30 MG; Start 09/27/16 at 06:00 Apixaban (Eliquis) 2.5 mg BID GTB Last administered on 10/22/16at 09:42; Admin Dose 2.5 MG; Start 09/30/16 at 09:00; Status Future hold Metoclopramide HCl (Reglan) 5 mg Q6 IV Last administered on 10/22/16 18:30; Admin Dose 5 MG; Start 09/30/16 at 12:00 Sildenafil Citrate (Revatio) 20 mg TID GTB Last administered on 10/22/16 12: 33; Admin Dose 20 MG; Start 10/08/16 at 10:45 Pramoxine HCl (Proctofoam 1%) 1 applic TID [place] Last administered on 10/22/16 12:34; Admin Dose 1 APPLIC; Start 10/10/16 at 21:00 ANNABEL CISSE MD Oct 22, 2016 19:26
[2016-10-22] MEDS: MIRTAZAPINE 15 MG TAB GTB SCH (22:13)
[2016-10-23] VITALS (31 sets, daily range): BP systolic 78–132; BP diastolic 38–72; PULSE 84–125; RESP 12–19
[2016-10-23] MEDS: IPRATROPIUM (HFA) 12.9 GM INHALER INH SCH ×6 (00:30→21:00)
[2016-10-23] MEDS: LEVALBUTEROL (HFA) 15 GM INHALER INH SCH ×6 (00:30→20:55)
[2016-10-23] MEDS: METOCLOPRAMIDE 10 MG INJ IV SCH ×3 (05:22→18:20)
[2016-10-23] MEDS: LANSOPRAZOLE 30 MG CAP PO SCH (05:22)
[2016-10-23] MEDS ORDERED: SOD CHLORIDE 0.9% 250 ML IV* ONE (08:48)
[2016-10-23] MEDS: SILDENAFIL 20 MG TAB GTB SCH ×3 (09:00→21:47)
[2016-10-23] MEDS: COLLAGENASE 30 GM TUBE TOP SCH (09:00)
[2016-10-23] MEDS: APIXABAN 5 MG TABLET GTB SCH ×2 (09:03→21:46)
[2016-10-23] MEDS: LEVETIRACETAM IV 500 MG in DEXTROSE 5% 100 ML IVPB SCH ×2 (09:03→21:47)
[2016-10-23] MEDS: BUDESONIDE (NEB) 0.5MG/2ML AMP HHN SCH ×2 (09:24→20:54)
[2016-10-23] MEDS: MUPIROCIN 2% 22 GM OINT TOP SCH ×2 (10:17→21:49)
[2016-10-23] MEDS: PRAMOXINE 1% 15 GM RECT FOAM PR SCH ×3 (10:17→21:49)
--- NOTE | 2016-10-23 11:29 | PN ---
DATE: 10/23/2016 SUBJECTIVE: Patient stable, no acute events, no fevers, chills, nausea, vomiting. OBJECTIVE: VITAL SIGNS: Blood pressure 102/52, respiration 18, pulse 102, temperature 98.5. HEENT: Head is normocephalic. NECK: Supple. HEART: Regular rate. LUNGS: Show diminished breath sounds at base. ABDOMEN: Soft, nontender to palpation. No rebound or guarding. EXTREMITIES: Negative for clubbing, cyanosis. No edema. DERMATOLOGIC: No rashes. MUSCULOSKELETAL: No joint effusions. NEUROLOGIC: No change in exam. MEDICATIONS: The patient's medications have been reviewed. LABORATORY DATA: Have been reviewed. No new labs. ASSESSMENT AND PLAN: 1. Sepsis secondary to pneumonia, decubitus wound. Patient is completing antibiotic course. [place] to monitor. 2. Leukocytosis, likely reactive. The patient is off antibiotics. Will continue to monitor. Foll ow up with Infectious Disease. 3. End-stage renal disease. The patient scheduled for dialysis 3 hours, 3K bath, calcium 2.5. 4. Hyperkalemia secondary to end-stage renal disease, resolved. 5. Hypernatremia, resolved. 6. Abdominal ascites secondary to heart failure and end stage renal disease. Continue to monitor. 7. Pulmonary hypertension. Continue sildenafil. 8. Decubitus wound. Continue wound care. 9. Anemia. Continue to monitor hemoglobin and hematocrit levels. Continue Epogen 10. Seizure disorder, continue Keppra. 11. Dysphagia status post PEG tube. Continue tube feeds. 12. respiratory failure. Vent settings reviewed. Continue to monitor. 13. , no change. 14. Atrial fibrillation, currently rate controlled. Continue medical management. 15. Gastrointestinal and deep venous thrombosis prophylaxis. Continue PPI and Eliquis. Dictated By: RUDDY BUSTILLOS/ARNOLDO Conf#: [id number] DID#: [id number]
[2016-10-23] MEDS ORDERED: VANCOMYCIN IV PER PHARMACY XX SCH (12:30)
--- NOTE | 2016-10-23 12:53 | CONS ---
Date/Time of Note Date/Time of Note DATE: 10/23/16 TIME: 12:52 Assessment/Plan Assessment/Plan Additional Assessment/Plan Additional Assessment/Plan ASSESSMENT: 1. Renal failure on dialysis. 2. Vent dependent respiratory failure. 3. Chronic obstructive pulmonary disease. 4. Atrial fibrillation. 5. Ascites, successful paracentesis done. 6. Dysphagia 7. G-tube clean,no leakage,tolerating feeding 8. Anemia: stable, likely from anemia of chronic disease 9. Status post septic shock. 10. Diabetes mellitus. 11. Decubitus ulcer. 12. Congestive heart failure. 13. Seizure disorder. 14. pneumonia,s/p sepsis 15.pulmonary hypertension 16 persistent leucocytosis,better 17.pressure ulcer g tube site Plan continue antibiotics per ID Reglan for gastroparesis Bactroban to g tube site. Routine G-tube site care,colostomy bag attached to g tube site.no leakage of formula,or even ascites fluid wound care nurse has not seen pt. continue present care paracentesis when abdomen more distended swallow evaluation noted Consultation Date/Type/Reason Admit Date/Time Sep 17, 2016 at 18:49 Type of Consultation: pulmonary 24 HR Interval Summary Constitutional: improved, no complaints Exam/Review of Systems Vital Signs Vitals Vital Signs Date Time Temp Pulse Resp B/P Pulse Ox O2 Delivery O2 Flow Rate FiO2 10/23/16 12:23 107 10/23/16 11:42 97.9 18 110/66 96 10/23/16 11:12 40 Intake and Output 10/22/16 10/22/16 10/23/16 14:59 22:59 06:59 Intake Total 755 ml 720 ml Output Total 350 ml Balance 755 ml 370 ml Exam Constitutional: alert, oriented, well developed Psych: nl mood/affect, no complaints Head: atraumatic, normocephalic Eyes: EOMI, PERRL, nl conjunctiva, nl lids, nl sclera ENMT: nl external ears & nose, nl lips & teeth, nl nasal mucosa & septum Neck: non-tender, supple Respiratory: clear to auscultation, normal air movement Cardiovascular: nl pulses, regular rate and rhythm Gastrointestinal: nl liver, spleen, non-tender, soft Musculoskeletal: nl extremities to inspection, nl gait and stance Extremities: normal pulses Neurological: CATALYST RECOVERY OPERATOR II-XII intact, nl mental status, nl speech, nl strength Skin: nl turgor, No rash or lesions Lymph: nl lymph nodes Results Result Diagram: 10/22/16 0610 10/22/16 0610 Medications Medications Current Medications Levetiracetam/ Dextrose (Keppra Iv/D5W) 105 ml @ 420 mls/hr Q12 IVPB Last administered on 10/23/16at 09:03; Admin Dose 420 MLS/HR; Start 09/18/16 at 09: 00 Collagenase (Santyl) 1 applic DAILY TOP Last administered on 10/23/16at 09:00; Admin Dose 1 APPLIC; Start 09/18/16 at 09:00 Acetaminophen (Tylenol Liquid) 650 mg Q4H PRN NGT PAIN AND OR ELEVATED TEMP Last administered on 09/29/16at 12:07; Admin Dose 650 MG; Start 09/18/16 at 08: 00 Bisacodyl (Dulcolax Supp) 10 mg DAILY PRN [place] CONSTIPATION; Start 09/18/16 at 08:00 Mupirocin (Bactroban) Apply to bilateral nares ... BID TOP Last administered on 10/23/16at 10:17; Admin Dose 1 APPLIC; Start 09/18/16 at 09:00 Mirtazapine (Remeron) 7.5 mg HS GTB Last administered on 10/22/16at 22:13; Admin Dose 7.5 MG; Start 09/18/16 at 21:00 Ondansetron HCl (Zofran Inj) 4 mg Q4H PRN IV NAUSEA AND/OR VOMITING; Start 08/24 at 08:00 Morphine Sulfate (morphine) 2 mg Q3H PRN IV PAIN LEVEL 6-10 Last administered on 09/28/16at 12:25; Admin Dose 2 MG; Start 09/18/16 at 08:00 Lorazepam (Ativan) 0.5 mg Q3H PRN IV ANXIETY; Start 09/18/16 at 08:00 IV Flush (NS 10 ml) 10 ml PRN PRN IV IV PROTOCOL Last administered on at 06:01; Admin Dose 10 ML; Start 09/18/16 at 13:00 Lansoprazole (Prevacid) 30 mg DAILY@06 PO Last administered on 10/23/16at 05:22 ; Admin Dose 30 MG; Start 11/19/16 at 06:00 Apixaban (Eliquis) 2.5 mg BID GTB Last administered on 10/23/16at 09:03; Admin Dose 2.5 MG; Start 09/30/16 at 09:00; Status Future hold Metoclopramide HCl (Reglan) 5 mg Q6 IV Last administered on 10/23/16at 05:22; Admin Dose 5 MG; Start 09/30/16 at 12:00 Sildenafil Citrate (Revatio) 20 mg TID GTB Last administered on 10/22/16at 22: 14; Admin Dose 20 MG; Start 10/08/16 at 10:45 Pramoxine HCl (Proctofoam 1%) 1 applic TID AL Last administered on 10/23/16at 10:17; Admin Dose 1 APPLIC; Start 10/10/16 at 21:00 ANNABEL CISSE MD Oct 23, 2016 12:53
--- NOTE | 2016-10-23 12:55 | PN ---
DATE: 10/23/2016 CARDIOLOGY FOLLOWUP SUBJECTIVE: No new cardiac events. Patient in atrial fibrillation. Heart overall is stable, is sl ightly elevated. No report of chest pain or pressure to me. Still on the vent though. MEDICATIONS: Reviewed as per medication reconciliation, personally reviewed. PHYSICAL EXAMINATION: VITAL SIGNS: Temperature 98.6, heart rate of 98, blood pressure of 110/53, respiratory rate of 14. HEENT: Normocephalic, atraumatic. A cachectic female. Pupils are equal. NECK: Status post tracheostomy, on the vent. CARDIOVASCULAR: Irregularly irregular, systolic murmur. PULMONARY: With mild rhonchi, diffuse. GASTROINTESTINAL: Soft, nontender. EXTREMITIES: With trivial edema. NEUROLOGIC: Awake, responds appropriately. PSYCHIATRIC: Appears to be calm and pleasant. ASSESSMENT AND PLAN: 1. Hypoxemic respiratory failure, status post tracheostomy, vent dependent. 2. Atrial fibrillation, chronic, on anticoagulation, heart rate control. 3. Anemia, status post previous transfusion. 4. Status post sepsis and shock, currently improved. 5. Pneumonia, status post antibiotic. 6. History of pulmonary hypertension, possible ASD. 7. Seizure disorder. RECOMMENDATIONS: We will continue with supportive care. Hemodialysis will be continued. Monitor o n telemetry. We will try to control the heart rate as tolerated. Antibiotic is managed as per ID. Vent support will be continued. Dictated By: AMANDA LARA/ARNOLDO Conf#: [id number] DID#: [id number]
[2016-10-23] MEDS ORDERED: VANCOMYCIN 1.25 GM in SOD CHLORIDE 0.9% 250 ML IVPB SCH (14:00)
--- NOTE | 2016-10-23 15:06 | CONS ---
Date/Time of Note Date/Time of Note DATE: 10/23/16 TIME: 15:04 Consult Date/Type/Reason Admit Date/Time Sep 17, 2016 at 18:49 Type of Consultation: ID Subjective no acute changes, looks comfortable, no fevers Objective Vital Signs Date Time Temp Pulse Resp B/P Pulse Ox O2 Delivery O2 Flow Rate FiO2 10/23/16 13:10 114 14 98 40 10/23/16 11:42 97.9 110/66 Intake and Output 10/22/16 10/22/16 10/23/16 15:00 23:00 07:00 Intake Total 755 ml 720 ml Output Total 350 ml Balance 755 ml 370 ml Results/Medications Result Diagram: 10/22/16 0610 10/22/16 0610 Medications Current Medications Levetiracetam/ Dextrose (Keppra Iv/D5W) 105 ml @ 420 mls/hr Q12 IVPB Last administered on 10/23/16at 09:03; Admin Dose 420 MLS/HR; Start 09/18/16 at 09: 00 Collagenase (Santyl) 1 applic DAILY TOP Last administered on 10/23/16at 09:00; Admin Dose 1 APPLIC; Start 09/18/16 at 09:00 Acetaminophen (Tylenol Liquid) 650 mg Q4H PRN NGT PAIN AND OR ELEVATED TEMP Last administered on 09/29/16at 12:07; Admin Dose 650 MG; Start 09/18/16 at 08: 00 Bisacodyl (Dulcolax Supp) 10 mg DAILY PRN [place] CONSTIPATION; Start 09/18/16 at 08:00 Mupirocin (Bactroban) Apply to bilateral nares ... BID TOP Last administered on 10/23/16at 10:17; Admin Dose 1 APPLIC; Start 09/18/16 at 09:00 Mirtazapine (Remeron) 7.5 mg HS GTB Last administered on 10/22/16at 22:13; Admin Dose 7.5 MG; Start 09/18/16 at 21:00 Ondansetron HCl (Zofran Inj) 4 mg Q4H PRN IV NAUSEA AND/OR VOMITING; Start 08/24 at 08:00 Morphine Sulfate (morphine) 2 mg Q3H PRN IV PAIN LEVEL 6-10 Last administered on 09/28/16at 12:25; Admin Dose 2 MG; Start 09/18/16 at 08:00 Lorazepam (Ativan) 0.5 mg Q3H PRN IV ANXIETY; Start 09/18/16 at 08:00 IV Flush (NS 10 ml) 10 ml PRN PRN IV IV PROTOCOL Last administered on at 06:01; Admin Dose 10 ML; Start 09/18/16 at 13:00 Lansoprazole (Prevacid) 30 mg DAILY@06 PO Last administered on 10/23/16at 05:22 ; Admin Dose 30 MG; Start 09/27/16 at 06:00 Apixaban (Eliquis) 2.5 mg BID GTB Last administered on 10/23/16at 09:03; Admin Dose 2.5 MG; Start 09/30/16 at 09:00; Status Future hold Metoclopramide HCl (Reglan) 5 mg Q6 IV Last administered on 10/23/16at 13:15; Admin Dose 5 MG; Start 09/30/16 at 12:00 Sildenafil Citrate (Revatio) 20 mg TID GTB Last administered on 10/22/16at 22: 14; Admin Dose 20 MG; Start 10/08/16 at 10:45 Pramoxine HCl 1 applic 1 applic TID [place] Last administered on 10/23/16at 13:16; Admin Dose 1 APPLIC; Start 10/10/16 at 21:00 Vancomycin HCl/ Sodium Chloride (Vancocin/NS) 250 ml @ 83.333 mls/ hr Q96H IVPB Last administered on 10/23/16at 14:49; Admin Dose 83.333 MLS/HR; Start at 14:00 Assessment/Plan Chief Complaint/Hosp Course INDWELLING: trach, PEG, RIJ Perm-A-Cath, Left upper extremity PICC line placed on 09/18/2016. Micro: 10/21 Bld cx + GPC PHYSICAL EXAMINATION: GENERAL: Fragile, chronically ill-appearing, elderly woman who is lying comfortably in bed. HEENT: Head atraumatic, normocephalic. Sclerae anicteric. Buccal mucosa dry. NECK: Supple. Tracheostomy present. CHEST: Rise symmetrical. Breath sounds diminished to bases. HEART: S1, S2. ABDOMEN: Soft, bowel tones present. EXTREMITIES: Without cyanosis. ASSESSMENT: 1. Ongoing sepsis, status post shock. 2. S/p healthcare-associated pneumonia with parapneumonic pleural effusion and sputum culture growing multi-drug resistant Pseudomonas aeruginosa. 3. Methicillin-resistant Staphylococcus aureus infected decubitus. 4. GT site cellulitis==> GI follows 4. S/p joe glabrata urinary tract infection. 5. Methicillin-resistant Staphylococcus aureus nares colonization. 6. End-stage renal disease, hemodialysis dependent. 7. History of cerebrovascular accident. 8. Ascites==> s/p paracentesis 09/24, 10/14 9. Sacral decub, poss OM 10. ALLERGY TO PENICILLIN AND SULFA. PLAN: Clinically unchanged, growing GPC form bld cx, will dc PICC and send tip for cx, start IV Vanco, repeat bld cx with next HD. VINAY MCLEAN staff Problems: RAISSA ROA NP Oct 23, 2016 15:06
[2016-10-23] MEDS ORDERED: ALTEPLASE (CATHFLO) 2 MG INJ CATHETER PRN (19:30)
[2016-10-23] MEDS: MIRTAZAPINE 15 MG TAB GTB SCH (21:47)
[2016-10-24] VITALS (24 sets, daily range): BP systolic 102–129; BP diastolic 52–83; PULSE 84–104; RESP 12–20
[2016-10-24] MEDS: METOCLOPRAMIDE 10 MG INJ IV SCH ×4 (00:10→18:50)
[2016-10-24] MEDS: LEVALBUTEROL (HFA) 15 GM INHALER INH SCH ×6 (01:15→21:20)
[2016-10-24] MEDS: IPRATROPIUM (HFA) 12.9 GM INHALER INH SCH ×6 (01:15→21:20)
[2016-10-24] MEDS: LANSOPRAZOLE 30 MG CAP PO SCH (05:46)
[2016-10-24 06:44] LABS: BASOPHIL # 0.1 10^3/ul (0.0-0.1); BASOPHILS % 0.5 % (0.0-2.0); EOSINOPHILS % 0.3 % (0.0-7.0); HEMATOCRIT 27.1 % (37.0-47.0); HEMOGLOBIN 8.5 g/dl (12.0-16.0); LYMPHOCYTES # 1.3 10^3/ul (0.8-2.9); LYMPHOCYTES % 12.8 % (15.0-51.0); MEAN CORPUSCULAR HEMOGLOBIN 32.1 pg (29.0-33.0); MEAN CORPUSCULAR HGB CONC 31.5 g/dl (32.0-37.0); MEAN CORPUSCULAR VOLUME 101.9 fl (82.0-101.0); MEAN PLATELET VOLUME 7.5 fl (7.4-10.4); MONOCYTE # 0.9 10^3/ul (0.3-0.9); MONOCYTES % 8.8 % (0.0-11.0); NEUTROPHIL # 8.2 10^3/ul (1.6-7.5); NEUTROPHILS % 77.6 % (39.0-77.0); PLATELET COUNT 318 10^3/UL (140-440); RED BLOOD COUNT 2.66 10^6/ul (4.20-5.40); RED CELL DISTRIBUTION WIDTH 21.6 % (11.5-14.5); UNCORRECTED WBC 10.5 10^3/ul (4.8-10.8); WHITE BLOOD COUNT 10.5 10^3/ul (4.8-10.8)
[2016-10-24 06:59] LABS: POTASSIUM 4.2 mmol/L (3.5-5.1)
[2016-10-24 06:59] LABS: CONDITION 1; LH ANALYZER COMMENTS 1
[2016-10-24 07:02] LABS: CREATININE 1.25 mg/dl (0.44-1.00); PHOSPHORUS 3.6 mg/dl (2.5-4.9)
[2016-10-24 07:03] LABS: CALCIUM 7.8 mg/dl (8.4-10.2); MAGNESIUM 2.1 mg/dl (1.7-2.5)
[2016-10-24] MEDS: BUDESONIDE (NEB) 0.5MG/2ML AMP HHN SCH ×2 (09:00→20:00)
[2016-10-24] MEDS: COLLAGENASE 30 GM TUBE TOP SCH (09:26)
[2016-10-24] MEDS: APIXABAN 5 MG TABLET GTB SCH ×2 (09:26→21:38)
[2016-10-24] MEDS: SILDENAFIL 20 MG TAB GTB SCH ×3 (09:26→21:38)
[2016-10-24] MEDS: PRAMOXINE 1% 15 GM RECT FOAM PR SCH ×3 (09:27→21:37)
[2016-10-24] MEDS: MUPIROCIN 2% 22 GM OINT TOP SCH ×2 (09:27→21:36)
--- NOTE | 2016-10-24 09:48 | PN ---
DATE: 10/24/2016 SUBJECTIVE: The patient is stable. Yesterday the patient's PICC line was removed after repeat bloo d cultures came back positive. No other acute events noted. No hemoptysis, hematemesis, or hematoc hezia. OBJECTIVE: VITAL SIGNS: Blood pressure is 117/56, respiratory rate 20, pulse 96, temperature 98.2. HEENT: Head is normocephalic. NECK: Shows trach. HEART: Regular rate. LUNGS: Show diminished breath sounds at base. ABDOMEN: Soft, nontender to palpation. No rebound or guarding. EXTREMITIES: Negative for clubbing, cyanosis. No edema. DERMATOLOGIC: No rashes. MUSCULOSKELETAL: No joint effusions. NEUROLOGIC: No change in exam. MEDICATIONS: Reviewed. LABORATORY DATA: Shows sodium 132, potassium 4.2, BUN 24, creatinine 1.25. White count 10.5, hemog lobin 8.5, hematocrit 26.1, platelet count is 318. ASSESSMENT AND PLAN: 1. Sepsis secondary to pneumonia, decubitus wounds, possible line infection. The patient's repeat blood cultures came back positive, and the patient's PICC line was removed. The patient's white cou nt improved after removal of PICC line. Plan is to continue vancomycin. We will follow up repeat c ultures and monitor. Follow up with infectious disease. 2. Leukocytosis. Etiology may be secondary to bacteremia, possibly line infection. The patient's PICC line removed. The patient was restarted on antibiotic therapy. White count has improved. Con tinue to monitor. 3. End-stage renal disease. The patient had hemodialysis yesterday, tolerated well. Plan for dial ysis tomorrow. 4. Hypokalemia, improved. 5. Hyponatremia secondary to end-stage renal disease. Continue to monitor. 6. Abdominal ascites secondary to heart failure and end-stage renal disease. Continue to monitor. We will give paracentesis as needed. 7. Pulmonary hypertension. Continue sildenafil. 8. Decubitus wound. Continue wound care. 9. Anemia. Continue to monitor hemoglobin and hematocrit levels. Continue Epogen. 10. Seizure disorder. Continue Keppra. 11. Dysphagia status post PEG. Continue tube feeding. 12. Ventilator dependent respiratory failure. Vent settings reviewed. Continue to monitor. 13. Atrial fibrillation, currently rate controlled. Continue medical management. 14. Encephalopathy. No change. 15. Gastrointestinal and deep venous thrombosis prophylaxis. Continue proton pump inhibitor and El iquis. Dictated By: RUDDY BUSTILLOS/ARNOLDO Conf#: [id number] DID#: [id number]
[2016-10-24] MEDS: LEVETIRACETAM IV 500 MG in DEXTROSE 5% 100 ML IVPB SCH ×2 (10:13→21:36)
[2016-10-24] MEDS: EPOETIN 10000 UNITS/1 ML INJ (ESRD) SC SCH (13:21)
--- NOTE | 2016-10-24 15:00 | CONS ---
Date/Time of Note Date/Time of Note DATE: 10/24/16 TIME: 14:58 Consult Date/Type/Reason Admit Date/Time Sep 17, 2016 at 18:49 Type of Consultation: ID Subjective no events, no fevers, looks comfortable Objective Vital Signs Date Time Temp Pulse Resp B/P Pulse Ox O2 Delivery O2 Flow Rate FiO2 10/24/16 13:34 82 14 98 40 10/24/16 12:10 98.2 117/83 Intake and Output 10/23/16 10/23/16 10/24/16 15:00 23:00 07:00 Intake Total 1100 ml 700 ml Output Total 1950 ml 300 ml Balance -850 ml 400 ml Results/Medications Result Diagram: 10/24/16 0535 10/24/16 0522 Results 24 hrs Laboratory Tests Test 10/24/16 05:22 10/24/16 05:35 Anion Gap 8 Blood Urea Nitrogen 34 H Calcium Level 7.8 L Carbon Dioxide Level 33 H Chloride Level 95 L Creatinine 1.25 H Glucose Level 102 Magnesium Level 2.1 Phosphorus Level 3.6 Potassium Level 4.2 Sodium Level 132 L Basophils # 0.1 Basophils % 0.5 Blood Morphology Comment Eosinophils # 0.0 Eosinophils % 0.3 Hematocrit 27.1 L Hemoglobin 8.5 L Lymphocytes # 1.3 Lymphocytes % 12.8 L Mean Corpuscular Hemoglobin 32.1 Mean Corpuscular Hemoglobin Concent 31.5 L Mean Corpuscular Volume 101.9 H Mean Platelet Volume 7.5 Monocytes # 0.9 Monocytes % 8.8 Neutrophils # 8.2 H Neutrophils % 77.6 H Nucleated Red Blood Cells # 0.0 Nucleated Red Blood Cells % 0.0 Platelet Count 318 Red Blood Count 2.66 L Red Cell Distribution Width 21.6 H White Blood Count 10.5 # Medications Current Medications Levetiracetam/ Dextrose (Keppra Iv/D5W) 105 ml @ 420 mls/hr Q12 IVPB Last administered on 10/24/16at 10:13; Admin Dose 420 MLS/HR; Start 09/18/16 at 09: 00 Collagenase (Santyl) 1 applic DAILY TOP Last administered on 10/24/16at 09:26; Admin Dose 1 APPLIC; Start 09/18/16 at 09:00 Acetaminophen (Tylenol Liquid) 650 mg Q4H PRN NGT PAIN AND OR ELEVATED TEMP Last administered on 09/29/16at 12:07; Admin Dose 650 MG; Start 09/18/16 at 08: 00 Bisacodyl (Dulcolax Supp) 10 mg DAILY PRN [place] CONSTIPATION; Start 09/18/16 at 08:00 Mupirocin (Bactroban) Apply to bilateral nares ... BID TOP Last administered on 10/24/16 09:27; Admin Dose 1 APPLIC; Start 09/18/16 at 09:00 Mirtazapine (Remeron) 7.5 mg HS GTB Last administered on 10/23/16at 21:47; Admin Dose 7.5 MG; Start 09/18/16 at 21:00 Ondansetron HCl (Zofran Inj) 4 mg Q4H PRN IV NAUSEA AND/OR VOMITING; Start 08/24 at 08:00 Morphine Sulfate (morphine) 2 mg Q3H PRN IV PAIN LEVEL 6-10 Last administered on 09/28/16 12:25; Admin Dose 2 MG; Start 09/18/16 at 08:00 Lorazepam (Ativan) 0.5 mg Q3H PRN IV ANXIETY; Start 09/18/16 at 08:00 IV Flush (NS 10 ml) 10 ml PRN PRN IV IV PROTOCOL Last administered on at 06:01; Admin Dose 10 ML; Start 09/18/16 at 13:00 Lansoprazole (Prevacid) 30 mg DAILY@06 PO Last administered on 10/24/16 05:46 ; Admin Dose 30 MG; Start 09/27/16 at 06:00 Apixaban (Eliquis) 2.5 mg BID GTB Last administered on 10/24/16at 09:26; Admin Dose 2.5 MG; Start 09/30/16 at 09:00; Status Future hold Metoclopramide HCl (Reglan) 5 mg Q6 IV Last administered on 10/24/16 11:46; Admin Dose 5 MG; Start 09/30/16 at 12:00 Sildenafil Citrate (Revatio) 20 mg TID GTB Last administered on 10/24/16 13: 41; Admin Dose 20 MG; Start 10/08/16 at 10:45 Pramoxine HCl 1 applic 1 applic TID [place] Last administered on 10/24/16 13:44; Admin Dose 1 APPLIC; Start 10/10/16 at 21:00 Vancomycin HCl/ Sodium Chloride (Vancocin/NS) 250 ml @ 83.333 mls/ hr Q96H IVPB Last administered on 10/23/16at 14:49; Admin Dose 83.333 MLS/HR; Start at 14:00 Assessment/Plan Chief Complaint/Hosp Course INDWELLING: trach, PEG, RIJ Perm-A-Cath Micro: 10/21 Bld cx + GPC Abx: Milio PHYSICAL EXAMINATION: GENERAL: Fragile, chronically ill-appearing, elderly woman who is lying comfortably in bed. HEENT: Head atraumatic, normocephalic. Sclerae anicteric. Buccal mucosa dry. NECK: Supple. Tracheostomy present. CHEST: Rise symmetrical. Breath sounds diminished to bases. HEART: S1, S2. ABDOMEN: Soft, bowel tones present. EXTREMITIES: Without cyanosis. ASSESSMENT: 1. Status post septic shock shock. 2. GPC septicemia===> PICC dc'd 2. S/p healthcare-associated pneumonia with parapneumonic pleural effusion and sputum culture growing multi-drug resistant Pseudomonas aeruginosa. 3. Methicillin-resistant Staphylococcus aureus infected decubitus. 4. GT site cellulitis==> GI follows 4. S/p joe glabrata urinary tract infection. 5. Methicillin-resistant Staphylococcus aureus nares colonization. 6. End-stage renal disease, hemodialysis dependent. 7. History of cerebrovascular accident. 8. Ascites==> s/p paracentesis 09/24, 10/14 9. Sacral decub, poss OM 10. ALLERGY TO PENICILLIN AND SULFA. PLAN: Clinically unchanged, s/p PICC dc'd, wbc decreasing, continue Yosvany MCLEAN staff Problems: RAISSA ROA NP Oct 24, 2016 15:00
--- NOTE | 2016-10-24 17:08 | CONS ---
Date/Time of Note Date/Time of Note DATE: 10/24/16 TIME: 17:07 Assessment/Plan Assessment/Plan Additional Assessment/Plan Assessment/Plan Additional Assessment/Plan Additional Assessment/Plan ASSESSMENT: 1. Renal failure on dialysis. 2. Vent dependent respiratory failure. 3. Chronic obstructive pulmonary disease. 4. Atrial fibrillation. 5. Ascites, successful paracentesis done. 6. Dysphagia 7. G-tube clean,no leakage,tolerating feeding 8. Anemia: stable, likely from anemia of chronic disease 9. Status post septic shock. 10. Diabetes mellitus. 11. Decubitus ulcer. 12. Congestive heart failure. 13. Seizure disorder. 14. pneumonia,s/p sepsis 15.pulmonary hypertension 16 persistent leucocytosis,better 17.pressure ulcer g tube site Plan continue antibiotics per ID Reglan for gastroparesis Bactroban to g tube site. Routine G-tube site care,colostomy bag attached to g tube site.no leakage of formula,or even ascites fluid wound care nurse has not seen pt. continue present care paracentesis when abdomen more distended Consultation Date/Type/Reason Admit Date/Time Sep 17, 2016 at 18:49 Type of Consultation: ID 24 HR Interval Summary Constitutional: improved, no complaints Exam/Review of Systems Vital Signs Vitals Vital Signs Date Time Temp Pulse Resp B/P Pulse Ox O2 Delivery O2 Flow Rate FiO2 10/24/16 16:14 91 10/24/16 15:38 98.5 20 105/54 96 10/24/16 13:34 40 Intake and Output 10/23/16 10/23/16 10/24/16 15:00 23:00 07:00 Intake Total 1100 ml 700 ml Output Total 1950 ml 300 ml Balance -850 ml 400 ml Exam Constitutional: alert, oriented, well developed Psych: nl mood/affect, no complaints Head: atraumatic, normocephalic Eyes: EOMI, PERRL, nl conjunctiva, nl lids, nl sclera ENMT: nl external ears & nose, nl lips & teeth, nl nasal mucosa & septum Neck: non-tender, supple Respiratory: clear to auscultation, normal air movement Cardiovascular: nl pulses, regular rate and rhythm Gastrointestinal: nl liver, spleen, non-tender, soft Musculoskeletal: nl extremities to inspection, nl gait and stance Extremities: normal pulses Neurological: TURBO OPERATOR II-XII intact, nl mental status, nl speech, nl strength Skin: nl turgor, No rash or lesions Lymph: nl lymph nodes Results Result Diagram: 10/24/16 0535 10/24/1622 Results 24 hrs Laboratory Tests Test 10/24/16 05:22 10/24/16 05:35 Anion Gap 8 Blood Urea Nitrogen 34 H Calcium Level 7.8 L Carbon Dioxide Level 33 H Chloride Level 95 L Creatinine 1.25 H Glucose Level 102 Magnesium Level 2.1 Phosphorus Level 3.6 Potassium Level 4.2 Sodium Level 132 L Basophils # 0.1 Basophils % 0.5 Blood Morphology Comment Eosinophils # 0.0 Eosinophils % 0.3 Hematocrit 27.1 L Hemoglobin 8.5 L Lymphocytes # 1.3 Lymphocytes % 12.8 L Mean Corpuscular Hemoglobin 32.1 Mean Corpuscular Hemoglobin Concent 31.5 L Mean Corpuscular Volume 101.9 H Mean Platelet Volume 7.5 Monocytes # 0.9 Monocytes % 8.8 Neutrophils # 8.2 H Neutrophils % 77.6 H Nucleated Red Blood Cells # 0.0 Nucleated Red Blood Cells % 0.0 Platelet Count 318 Red Blood Count 2.66 L Red Cell Distribution Width 21.6 H White Blood Count 10.5 # Medications Medications Current Medications Levetiracetam/ Dextrose (Keppra Iv/D5W) 105 ml @ 420 mls/hr Q12 IVPB Last administered on 10/24/16at 10:13; Admin Dose 420 MLS/HR; Start 09/18/16 at 09: 00 Collagenase (Santyl) 1 applic DAILY TOP Last administered on 10/24/16at 09:26; Admin Dose 1 APPLIC; Start 09/18/16 at 09:00 Acetaminophen (Tylenol Liquid) 650 mg Q4H PRN NGT PAIN AND OR ELEVATED TEMP Last administered on 09/29/16at 12:07; Admin Dose 650 MG; Start 09/18/16 at 08: 00 Bisacodyl (Dulcolax Supp) [address] CONSTIPATION; Start 09/18/16 at 08:00 Mupirocin (Bactroban) Apply to bilateral nares ... BID TOP Last administered on 10/24/16at 09:27; Admin Dose 1 APPLIC; Start 09/18/16 at 09:00 Mirtazapine (Remeron) 7.5 mg HS GTB Last administered on 10/23/16 21:47; Admin Dose 7.5 MG; Start 09/18/16 at 21:00 Ondansetron HCl (Zofran Inj) 4 mg Q4H PRN IV NAUSEA AND/OR VOMITING; Start 08/24 at 08:00 Morphine Sulfate (morphine) 2 mg Q3H PRN IV PAIN LEVEL 6-10 Last administered on 09/28/16 12:25; Admin Dose 2 MG; Start 09/18/16 at 08:00 Lorazepam (Ativan) 0.5 mg Q3H PRN IV ANXIETY; Start 09/18/16 at 08:00 IV Flush (NS 10 ml) 10 ml PRN PRN IV IV PROTOCOL Last administered on 06:01; Admin Dose 10 ML; Start 09/18/16 at 13:00 Lansoprazole (Prevacid) 30 mg DAILY@06 PO Last administered on 10/24/16 05:46 ; Admin Dose 30 MG; Start 09/27/16 at 06:00 Apixaban (Eliquis) 2.5 mg BID GTB Last administered on 10/24/16 09:26; Admin Dose 2.5 MG; Start 09/30/16 at 09:00; Status Future hold Metoclopramide HCl (Reglan) 5 mg Q6 IV Last administered on 10/24/16 11:46; Admin Dose 5 MG; Start 09/30/16 at 12:00 Sildenafil Citrate (Revatio) 20 mg TID GTB Last administered on 10/24/16 13: 41; Admin Dose 20 MG; Start 10/08/16 at 10:45 Pramoxine HCl 1 applic [address] Last administered on 10/24/16 13:44; Admin Dose 1 APPLIC; Start 10/10/16 at 21:00 Vancomycin HCl/ Sodium Chloride (Vancocin/NS) 250 ml @ 83.333 mls/ hr Q96H IVPB Last administered on 10/23/16 14:49; Admin Dose 83.333 MLS/HR; Start at 14:00 ANNABEL CISSE MD Oct 24, 2016 17:07
[2016-10-24] MEDS: MIRTAZAPINE 15 MG TAB GTB SCH (21:37)
[2016-10-25] VITALS (24 sets, daily range): BP systolic 102–145; BP diastolic 53–65; PULSE 79–107; RESP 12–18
[2016-10-25] MEDS: METOCLOPRAMIDE 10 MG INJ IV SCH ×4 (00:23→17:41)
[2016-10-25] MEDS: IPRATROPIUM (HFA) 12.9 GM INHALER INH SCH ×6 (01:34→20:30)
[2016-10-25] MEDS: LEVALBUTEROL (HFA) 15 GM INHALER INH SCH ×6 (01:34→20:30)
[2016-10-25] MEDS: LANSOPRAZOLE 30 MG CAP PO SCH (05:23)
[2016-10-25 06:18] LABS: BASOPHIL # 0.1 10^3/ul (0.0-0.1); BASOPHILS % 0.5 % (0.0-2.0); EOSINOPHILS # 0.1 10^3/ul (0.0-0.5); EOSINOPHILS % 0.6 % (0.0-7.0); HEMATOCRIT 27.5 % (37.0-47.0); HEMOGLOBIN 8.8 g/dl (12.0-16.0); LYMPHOCYTES # 2.3 10^3/ul (0.8-2.9); LYMPHOCYTES % 19.7 % (15.0-51.0); MEAN CORPUSCULAR HEMOGLOBIN 32.2 pg (29.0-33.0); MEAN CORPUSCULAR HGB CONC 31.8 g/dl (32.0-37.0); MEAN CORPUSCULAR VOLUME 101.3 fl (82.0-101.0); MEAN PLATELET VOLUME 7.4 fl (7.4-10.4); MONOCYTES % 8.3 % (0.0-11.0); NEUTROPHIL # 8.1 10^3/ul (1.6-7.5); NEUTROPHILS % 70.9 % (39.0-77.0); PLATELET COUNT 332 10^3/UL (140-440); RED BLOOD COUNT 2.71 10^6/ul (4.20-5.40); RED CELL DISTRIBUTION WIDTH 20.9 % (11.5-14.5); UNCORRECTED WBC 11.5 10^3/ul (4.8-10.8); WHITE BLOOD COUNT 11.5 10^3/ul (4.8-10.8)
[2016-10-25 06:43] LABS: CONDITION 1; LH ANALYZER COMMENTS 1
[2016-10-25] MEDS: LEVETIRACETAM IV 500 MG in DEXTROSE 5% 100 ML IVPB SCH ×2 (10:49→23:16)
[2016-10-25] MEDS: MUPIROCIN 2% 22 GM OINT TOP SCH ×2 (10:58→23:19)
[2016-10-25] MEDS: COLLAGENASE 30 GM TUBE TOP SCH (10:58)
[2016-10-25] MEDS: APIXABAN 5 MG TABLET GTB SCH ×2 (10:58→21:00)
[2016-10-25] MEDS: PRAMOXINE 1% 15 GM RECT FOAM PR SCH ×3 (11:00→23:19)
[2016-10-25] MEDS: SILDENAFIL 20 MG TAB GTB SCH ×3 (11:00→21:00)
[2016-10-25] MEDS: BUDESONIDE (NEB) 0.5MG/2ML AMP HHN SCH ×2 (11:10→20:30)
--- NOTE | 2016-10-25 11:42 | CONS ---
Date/Time of Note Date/Time of Note DATE: 10/25/16 TIME: 11:41 Consult Date/Type/Reason Admit Date/Time Sep 17, 2016 at 18:49 Type of Consultation: Pulmonary Subjective Patient remains stable no new events Objective Vital Signs Date Time Temp Pulse Resp B/P Pulse Ox O2 Delivery O2 Flow Rate FiO2 10/25/16 11:10 96 14 95 40 10/25/16 07:45 97.2 106/54 Intake and Output 10/24/16 10/24/16 10/25/16 15:00 23:00 07:00 Intake Total 600 ml 700 ml Balance 600 ml 700 ml GENERAL: Chronically ill-appearing lady on mechanical ventilation comfortable at rest VITAL SIGNS: per chart NECK: Supple. No JVD or lymphadenopathy. CARDIAC EXAM: S1, S2. No added sounds or murmurs. CHEST: clear bilaterally, No added sounds, rales or wheezes ABDOMEN: Soft, nontender. No guarding or rebound. Moderate distention EXTREMITIES: No cyanosis, clubbing edema +2 NEUROLOGIC: Generalized weakness. Results/Medications Result Diagram: 10/25/16 0540 10/24/16 0522 Results 24 hrs Laboratory Tests Test 10/25/16 05:40 Basophils # 0.1 Basophils % 0.5 Blood Morphology Comment Eosinophils # 0.1 Eosinophils % 0.6 Hematocrit 27.5 L Hemoglobin 8.8 L Lymphocytes # 2.3 Lymphocytes % 19.7 Mean Corpuscular Hemoglobin 32.2 Mean Corpuscular Hemoglobin Concent 31.8 L Mean Corpuscular Volume 101.3 H Mean Platelet Volume 7.4 Monocytes # 1.0 H Monocytes % 8.3 Neutrophils # 8.1 H Neutrophils % 70.9 Nucleated Red Blood Cells # 0.0 Nucleated Red Blood Cells % 0.0 Platelet Count 332 Red Blood Count 2.71 L Red Cell Distribution Width 20.9 H White Blood Count 11.5 H Medications Current Medications Levetiracetam/ Dextrose (Keppra Iv/D5W) 105 ml @ 420 mls/hr Q12 IVPB Last administered on 10/25/16at 10:49; Admin Dose 420 MLS/HR; Start 09/18/16 at 09: 00 Collagenase (Santyl) 1 applic DAILY TOP Last administered on 10/25/16at 10:58; Admin Dose 1 APPLIC; Start 09/18/16 at 09:00 Acetaminophen (Tylenol Liquid) 650 mg Q4H PRN NGT PAIN AND OR ELEVATED TEMP Last administered on 09/29/16at 12:07; Admin Dose 650 MG; Start 09/18/16 at 08: 00 Bisacodyl (Dulcolax Supp) 10 mg DAILY PRN [place] CONSTIPATION; Start 09/18/16 at 08:00 Mupirocin (Bactroban) Apply to bilateral nares ... BID TOP Last administered on 10/25/16at 10:58; Admin Dose 1 APPLIC; Start 09/18/16 at 09:00 Mirtazapine (Remeron) 7.5 mg HS GTB Last administered on 10/24/16at 21:37; Admin Dose 7.5 MG; Start 09/18/16 at 21:00 Ondansetron HCl (Zofran Inj) 4 mg Q4H PRN IV NAUSEA AND/OR VOMITING; Start 08/24 at 08:00 Morphine Sulfate (morphine) 2 mg Q3H PRN IV PAIN LEVEL 6-10 Last administered on 09/28/16at 12:25; Admin Dose 2 MG; Start 09/18/16 at 08:00 Lorazepam (Ativan) 0.5 mg Q3H PRN IV ANXIETY; Start 09/18/16 at 08:00 IV Flush (NS 10 ml) 10 ml PRN PRN IV IV PROTOCOL Last administered on at 06:01; Admin Dose 10 ML; Start 09/18/16 at 13:00 Lansoprazole (Prevacid) 30 mg DAILY@06 PO Last administered on 10/25/16at 05:23 ; Admin Dose 30 MG; Start 09/27/16 at 06:00 Apixaban (Eliquis) 2.5 mg BID GTB Last administered on 10/25/16at 10:58; Admin Dose 2.5 MG; Start 09/30/16 at 09:00; Status Future hold Metoclopramide HCl (Reglan) 5 mg Q6 IV Last administered on 10/25/16at 05:23; Admin Dose 5 MG; Start 09/30/16 at 12:00 Sildenafil Citrate (Revatio) 20 mg TID GTB Last administered on 10/25/16at 11: 00; Admin Dose 20 MG; Start 10/08/16 at 10:45 Pramoxine HCl 1 applic 1 applic TID [place] Last administered on 10/25/16at 11:00; Admin Dose 1 APPLIC; Start 10/10/16 at 21:00 Vancomycin HCl/ Sodium Chloride (Vancocin/NS) 250 ml @ 83.333 mls/ hr Q96H IVPB Last administered on 10/23/16at 14:49; Admin Dose 83.333 MLS/HR; Start at 14:00 Assessment/Plan Chief Complaint/Hosp Course IMPRESSION AND PLAN: 1. Ventilator-dependent respiratory failure. 2. Status post septic shock. 3. Polymicrobial sepsis. 4. End-stage renal failure on hemodialysis. 5. G tube malfunction / leak PLAN: 1. Continue vent support. 2. Continue ID recommendations. 3. Continue wound care. 4. Continue DVT and GI prophylaxis. 5. GI recs Consider transfer back to assisted facility Problems: JULIA HERNANDEZ MD, [facility] Oct 25, 2016 11:42
--- NOTE | 2016-10-25 12:53 | PN ---
DATE: 10/25/2016 SUBJECTIVE: The patient is stable. No acute events overnight. No fevers, chills, nausea, or vomit ing. The patient is currently on hemodialysis, tolerating it well. OBJECTIVE: VITAL SIGNS: Blood pressure 106/54, respirations 13, pulse 100, temperature 97.2. HEENT: Head is normocephalic. NECK: Supple. HEART: Regular rate. LUNGS: Showed diminished breath sounds at the base. ABDOMEN: Soft, nontender to palpation. No rebound or guarding. Mild distention. Positive G-tube. EXTREMITIES: Negative for clubbing or cyanosis. No edema. MUSCULOSKELETAL: Positive decubitus wound. NEUROLOGIC: No change in exam. DERMATOLOGIC: No rashes. LABORATORY DATA: Shows white count 11.5, hemoglobin 9.8, hematocrit 27.5, platelet count 332. ASSESSMENT AND PLAN: 1. Sepsis secondary to pneumonia and decubitus wound. The patient's repeat blood cultures are posi tive. Underlying source is likely PICC line. The patient's PICC line was removed. The patient is currently on IV antibiotics. Will continue. White count has improved. Will follow up with infecti ous disease for further recommendations. 2. Leukocytosis. Improving. Etiology is likely due to bacteremia. Continue to monitor. 3. End-stage renal disease. The patient is currently on hemodialysis. Continue the current treatm ent plan. 4. Hyponatremia secondary to end-stage renal disease. Continue to limit free water intake. 5. Abdominal ascites secondary to congestive heart failure and end-stage renal disease. Continue t o monitor. Give paracentesis as needed. 6. Pulmonary hypertension. Continue sildenafil. 7. Decubitus wound. Continue wound care. 8. Anemia. Continue to monitor hemoglobin and hematocrit levels. Continue Epogen. 9. Seizure disorder. Continue Keppra. 10. Dysphagia. Status post PEG. Continue tube feedings. 11. Ventilatory-dependent respiratory failure. Vent settings have been reviewed. Continue to sreekanth tor. 12. Atrial fibrillation. Currently rate controlled. Continue medical management. 13. Encephalopathy. No change. 14. Gastrointestinal and deep venous thrombosis prophylaxis. Continue proton pump inhibitor and El iquis. Dictated By: RUDDY BUSTILLOS/ARNOLDO Conf#: [id number] DID#: [id number]
--- NOTE | 2016-10-25 13:17 | CONS ---
Date/Time of Note Date/Time of Note DATE: 10/25/16 TIME: 13:15 Assessment/Plan Assessment/Plan Chief Complaint/Hosp Course ASSESSMENT: 1. Renal failure on dialysis. 2. Vent dependent respiratory failure. 3. Chronic obstructive pulmonary disease. 4. Atrial fibrillation. 5. Ascites, successful paracentesis done. 6. Dysphagia 7. G-tube site leakage and cellulitis, improving 8. Anemia: stable, likely from anemia of chronic disease 9. Status post septic shock. 10. Diabetes mellitus. 11. Decubitus ulcer. 12. Congestive heart failure. 13. Seizure disorder. 14. pneumonia,s/p sepsis Plan continue antibiotics per ID Reglan for gastroparesis Bactroban to g tube site. Routine G-tube site care,colostomy bag attached to g tube site.no leakage of formula,or even ascites fluid wound care nurse f/u for G-tube care paracentesis when abdomen more distended Problems: Consultation Date/Type/Reason Admit Date/Time Sep 17, 2016 at 18:49 Type of Consultation: GI 24 HR Interval Summary Free Text/Dictation resting, tolerating TF, no n/v Exam/Review of Systems Vital Signs Vitals Vital Signs Date Time Temp Pulse Resp B/P Pulse Ox O2 Delivery O2 Flow Rate FiO2 10/25/16 11:44 98.5 74 16 118/56 97 10/25/16 11:10 40 Intake and Output 10/24/16 10/24/16 10/25/16 15:00 23:00 07:00 Intake Total 600 ml 700 ml Balance 600 ml 700 ml Exam Head: atraumatic, normocephalic Eyes: EOMI, nl conjunctiva, nl lids, nl sclera ENMT: mucosa pink and moist, nl external ears & nose, nl lips & teeth, nl nasal mucosa & septum Neck: non-tender, supple Respiratory: clear to auscultation, normal air movement Cardiovascular: nl pulses, regular rate and rhythm Gastrointestinal: bowel sounds, non-tender, other (G- tube c/d/i), soft Results Result Diagram: 10/25/16 0540 10/24/16 0522 Results 24 hrs Laboratory Tests Test 10/25/16 05:40 Basophils # 0.1 Basophils % 0.5 Blood Morphology Comment Eosinophils # 0.1 Eosinophils % 0.6 Hematocrit 27.5 L Hemoglobin 8.8 L Lymphocytes # 2.3 Lymphocytes % 19.7 Mean Corpuscular Hemoglobin 32.2 Mean Corpuscular Hemoglobin Concent 31.8 L Mean Corpuscular Volume 101.3 H Mean Platelet Volume 7.4 Monocytes # 1.0 H Monocytes % 8.3 Neutrophils # 8.1 H Neutrophils % 70.9 Nucleated Red Blood Cells # 0.0 Nucleated Red Blood Cells % 0.0 Platelet Count 332 Red Blood Count 2.71 L Red Cell Distribution Width 20.9 H White Blood Count 11.5 H Medications Medications Current Medications Levetiracetam/ Dextrose (Keppra Iv/D5W) 105 ml @ 420 mls/hr Q12 IVPB Last administered on 10/25/16at 10:49; Admin Dose 420 MLS/HR; Start 09/18/16 at 09: 00 Collagenase (Santyl) 1 applic DAILY TOP Last administered on 10/25/16at 10:58; Admin Dose 1 APPLIC; Start 09/18/16 at 09:00 Acetaminophen (Tylenol Liquid) 650 mg Q4H PRN NGT PAIN AND OR ELEVATED TEMP Last administered on 09/29/16at 12:07; Admin Dose 650 MG; Start 09/18/16 at 08: 00 Bisacodyl (Dulcolax Supp) 10 mg DAILY PRN [place] CONSTIPATION; Start 09/18/16 at 08:00 Mupirocin (Bactroban) Apply to bilateral nares ... BID TOP Last administered on 10/25/16at 10:58; Admin Dose 1 APPLIC; Start 09/18/16 at 09:00 Mirtazapine (Remeron) 7.5 mg HS GTB Last administered on 10/24/16at 21:37; Admin Dose 7.5 MG; Start 09/18/16 at 21:00 Ondansetron HCl (Zofran Inj) 4 mg Q4H PRN IV NAUSEA AND/OR VOMITING; Start 08/24 at 08:00 Morphine Sulfate (morphine) 2 mg Q3H PRN IV PAIN LEVEL 6-10 Last administered on 09/28/16at 12:25; Admin Dose 2 MG; Start 09/18/16 at 08:00 Lorazepam (Ativan) 0.5 mg Q3H PRN IV ANXIETY; Start 09/18/16 at 08:00 IV Flush (NS 10 ml) 10 ml PRN PRN IV IV PROTOCOL Last administered on at 06:01; Admin Dose 10 ML; Start 09/18/16 at 13:00 Lansoprazole (Prevacid) 30 mg DAILY@06 PO Last administered on 10/25/16at 05:23 ; Admin Dose 30 MG; Start 09/27/16 at 06:00 Apixaban (Eliquis) 2.5 mg BID GTB Last administered on 10/25/16at 10:58; Admin Dose 2.5 MG; Start 09/30/16 at 09:00; Status Future hold Metoclopramide HCl (Reglan) 5 mg Q6 IV Last administered on 10/25/16at 12:30; Admin Dose 5 MG; Start 09/30/16 at 12:00 Sildenafil Citrate (Revatio) 20 mg TID GTB Last administered on 10/25/16at 11: 00; Admin Dose 20 MG; Start 10/08/16 at 10:45 Pramoxine HCl 1 applic 1 applic TID [place] Last administered on 10/25/16at 11:00; Admin Dose 1 APPLIC; Start 10/10/16 at 21:00 Vancomycin HCl/ Sodium Chloride (Vancocin/NS) 250 ml @ 83.333 mls/ hr Q96H IVPB Last administered on 10/23/16at 14:49; Admin Dose 83.333 MLS/HR; Start at 14:00 CAMDEN FRITZ MD Oct 25, 2016 13:17
--- NOTE | 2016-10-25 15:15 | CONS ---
Date/Time of Note Date/Time of Note DATE: 10/25/16 TIME: 15:12 Assessment/Plan Assessment/Plan Chief Complaint/Hosp Course ID PROGRESS NOTE 24H INTERVAL SUMMARY * Noncommunicative/Trach/Peg * No fevers, WBC down * PICC DC'd after 10/21 BCx (+)Staph-CoNS * ABX = Vanco IV PHYSICAL EXAMINATION: GENERAL: Looks comfortable resting on Vent / NAD HEENT: Unremarkable NECK: Trach clean CHEST: Rise symmetrical,=> Vented course BS HEART: Pulse RRR ABDOMEN: Soft, benign - Peg EXTREMITIES: Warm, no edema SKIN: STG IV DECUB -> See photos ID ASSESSMENT 81 yo H F w/PMHx Afib, CVA, VDRF-Trach since OCT 2015, Peg, COPD, ESRD admit with: 1. Sepsis w/Staph-CoNS (+)Bacteremia on 10/21. => due to PICC LINE sepsis -> PICC DC'd * s/p Sepsis w/shock on admission => hypotension on pressors on admission RESOLVED ->Likely GNR from GNR HCAP + DECUB + ?bladder sepsis - anuric * Leukocytosis on admit * Low grade temps on admit 99.7 * Encephalopathy 2/2 #1 2. s/p GNR HCAP = (+PSAR sensitive to Amikacin = s/p ABX RX 3. Right pleural effusion, possibly underlying healthcare-associated pneumonia. 3. Acute decompensated heart failure, right-sided heart failure. Continue ultrafiltration dialysis. 4. Dysfunctional G-tube with NG tube in place. 5. ESRD-> HD w/PermCath 6. Ascites==> s/p paracentesis 09/24===> cx negative 7. STG IV coccygeal decub present on admission * Wound Cx(+)MRSA 8. (+)Glabrata UTI -> Urostasis 2nd anuric 9. Oral candidiasis ( + )MRSA Nares ->Bactroban INVASIVES: Trach, Peg, NGT, PermCath ABX ALLERGY: PCN/SULFA CURRENT ABX: ABX => s/p Vanco IV s/p Vanco IV + Amikacin + Flagyl ID RECOMMENDATIONS Repeat BCx from PermCath next HD-> IF BCx (+) may need to change vs attempt line salvage. Continue Vanco IV x 14 days total . . Problems: Consultation Date/Type/Reason Admit Date/Time Sep 17, 2016 at 18:49 Type of Consultation: ID Exam/Review of Systems Vital Signs Vitals Vital Signs Date Time Temp Pulse Resp B/P Pulse Ox O2 Delivery O2 Flow Rate FiO2 10/25/16 13:00 110 15 97 30 10/25/16 11:44 98.5 118/56 Intake and Output 10/24/16 10/24/16 10/25/16 15:00 23:00 07:00 Intake Total 600 ml 700 ml Balance 600 ml 700 ml Results Result Diagram: 10/25/16 0540 10/24/16 0522 Results 24 hrs Laboratory Tests Test 10/25/16 05:40 Basophils # 0.1 Basophils % 0.5 Blood Morphology Comment Eosinophils # 0.1 Eosinophils % 0.6 Hematocrit 27.5 L Hemoglobin 8.8 L Lymphocytes # 2.3 Lymphocytes % 19.7 Mean Corpuscular Hemoglobin 32.2 Mean Corpuscular Hemoglobin Concent 31.8 L Mean Corpuscular Volume 101.3 H Mean Platelet Volume 7.4 Monocytes # 1.0 H Monocytes % 8.3 Neutrophils # 8.1 H Neutrophils % 70.9 Nucleated Red Blood Cells # 0.0 Nucleated Red Blood Cells % 0.0 Platelet Count 332 Red Blood Count 2.71 L Red Cell Distribution Width 20.9 H White Blood Count 11.5 H Medications Medications Current Medications Levetiracetam/ Dextrose (Keppra Iv/D5W) 105 ml @ 420 mls/hr Q12 IVPB Last administered on 10/25/16at 10:49; Admin Dose 420 MLS/HR; Start 09/18/16 at 09: 00 Collagenase (Santyl) 1 applic DAILY TOP Last administered on 10/25/16at 10:58; Admin Dose 1 APPLIC; Start 09/18/16 at 09:00 Acetaminophen (Tylenol Liquid) 650 mg Q4H PRN NGT PAIN AND OR ELEVATED TEMP Last administered on 09/29/16at 12:07; Admin Dose 650 MG; Start 09/18/16 at 08: 00 Bisacodyl (Dulcolax Supp) 10 mg DAILY PRN [place] CONSTIPATION; Start 09/18/16 at 08:00 Mupirocin (Bactroban) Apply to bilateral nares ... BID TOP Last administered on 10/25/16at 10:58; Admin Dose 1 APPLIC; Start 09/18/16 at 09:00 Mirtazapine (Remeron) 7.5 mg HS GTB Last administered on 10/24/16at 21:37; Admin Dose 7.5 MG; Start 09/18/16 at 21:00 Ondansetron HCl (Zofran Inj) 4 mg Q4H PRN IV NAUSEA AND/OR VOMITING; Start 08/24 at 08:00 Morphine Sulfate (morphine) 2 mg Q3H PRN IV PAIN LEVEL 6-10 Last administered on 09/28/16at 12:25; Admin Dose 2 MG; Start 09/18/16 at 08:00 Lorazepam (Ativan) 0.5 mg Q3H PRN IV ANXIETY; Start 09/18/16 at 08:00 IV Flush (NS 10 ml) 10 ml PRN PRN IV IV PROTOCOL Last administered on at 06:01; Admin Dose 10 ML; Start 09/18/16 at 13:00 Lansoprazole (Prevacid) 30 mg DAILY@06 PO Last administered on 10/25/16at 05:23 ; Admin Dose 30 MG; Start 09/27/16 at 06:00 Apixaban (Eliquis) 2.5 mg BID GTB Last administered on 10/25/16at 10:58; Admin Dose 2.5 MG; Start 09/30/16 at 09:00; Status Future hold Metoclopramide HCl (Reglan) 5 mg Q6 IV Last administered on 10/25/16at 12:30; Admin Dose 5 MG; Start 09/30/16 at 12:00 Sildenafil Citrate (Revatio) 20 mg TID GTB Last administered on 10/25/16at 11: 00; Admin Dose 20 MG; Start 10/08/16 at 10:45 Pramoxine HCl 1 applic 1 applic TID [place] Last administered on 10/25/16at 11:00; Admin Dose 1 APPLIC; Start 10/10/16 at 21:00 Vancomycin HCl/ Sodium Chloride (Vancocin/NS) 250 ml @ 83.333 mls/ hr Q96H IVPB Last administered on 10/23/16at 14:49; Admin Dose 83.333 MLS/HR; Start at 14:00 Miscellaneous Information (*Rx Drug Level Order Reminder*) RANDOM VANCOMYCIN LEVEL ... ONCE ONCE XX ; Start 10/26/16 at 05:00; Stop 10/26/16 at 05:01 JOEY RODRIGUEZ NP Oct 25, 2016 15:15
[2016-10-25] MEDS: EPOETIN 10000 UNITS/1 ML INJ (ESRD) SC SCH (15:16)
[2016-10-25] MEDS: MIRTAZAPINE 15 MG TAB GTB SCH (23:16)
[2016-10-26] VITALS (23 sets, daily range): BP systolic 106–135; BP diastolic 56–68; PULSE 83–118; RESP 12–19
[2016-10-26] MEDS: METOCLOPRAMIDE 10 MG INJ IV SCH ×4 (00:20→17:50)
[2016-10-26] MEDS: IPRATROPIUM (HFA) 12.9 GM INHALER INH SCH ×6 (00:58→20:35)
[2016-10-26] MEDS: LEVALBUTEROL (HFA) 15 GM INHALER INH SCH ×6 (00:58→20:35)
[2016-10-26] MEDS: LANSOPRAZOLE 30 MG CAP PO SCH (06:01)
[2016-10-26 07:32] LABS: BASOPHIL # 0.1 10^3/ul (0.0-0.1); BASOPHILS % 0.7 % (0.0-2.0); EOSINOPHILS % 0.4 % (0.0-7.0); HEMATOCRIT 26.9 % (37.0-47.0); HEMOGLOBIN 8.6 g/dl (12.0-16.0); LYMPHOCYTES # 1.4 10^3/ul (0.8-2.9); LYMPHOCYTES % 13.9 % (15.0-51.0); MEAN CORPUSCULAR HEMOGLOBIN 32.5 pg (29.0-33.0); MEAN CORPUSCULAR HGB CONC 32.1 g/dl (32.0-37.0); MEAN CORPUSCULAR VOLUME 101.2 fl (82.0-101.0); MEAN PLATELET VOLUME 7.8 fl (7.4-10.4); MONOCYTES % 9.5 % (0.0-11.0); NEUTROPHIL # 7.6 10^3/ul (1.6-7.5); NEUTROPHILS % 75.5 % (39.0-77.0); PLATELET COUNT 280 10^3/UL (140-440); RED BLOOD COUNT 2.66 10^6/ul (4.20-5.40); UNCORRECTED WBC 10.1 10^3/ul (4.8-10.8); WHITE BLOOD COUNT 10.1 10^3/ul (4.8-10.8)
[2016-10-26 07:41] LABS: CONDITION 1; LH ANALYZER COMMENTS 1; SUSPECT 1
[2016-10-26 08:09] LABS: POTASSIUM 4.6 mmol/L (3.5-5.1)
[2016-10-26 08:11] LABS: CREATININE 1.33 mg/dl (0.44-1.00)
[2016-10-26 08:12] LABS: CALCIUM 8.3 mg/dl (8.4-10.2); MAGNESIUM 2.1 mg/dl (1.7-2.5); PHOSPHORUS 3.6 mg/dl (2.5-4.9)
[2016-10-26] MEDS: SILDENAFIL 20 MG TAB GTB SCH ×3 (08:43→21:00)
[2016-10-26] MEDS: APIXABAN 5 MG TABLET GTB SCH ×2 (08:43→22:20)
[2016-10-26] MEDS: MUPIROCIN 2% 22 GM OINT TOP SCH ×2 (08:43→22:20)
[2016-10-26] MEDS: PRAMOXINE 1% 15 GM RECT FOAM PR SCH ×3 (08:44→22:21)
[2016-10-26] MEDS: LEVETIRACETAM IV 500 MG in DEXTROSE 5% 100 ML IVPB SCH ×2 (08:47→21:19)
[2016-10-26] MEDS: BUDESONIDE (NEB) 0.5MG/2ML AMP HHN SCH ×2 (08:56→21:02)
--- NOTE | 2016-10-26 10:51 | CONS ---
Date/Time of Note Date/Time of Note DATE: 10/26/16 TIME: 10:50 Assessment/Plan Assessment/Plan Chief Complaint/Hosp Course ASSESSMENT: 1. Renal failure on dialysis. 2. Vent dependent respiratory failure. 3. Chronic obstructive pulmonary disease. 4. Atrial fibrillation. 5. Ascites, successful paracentesis done. 6. Dysphagia 7. G-tube site leakage and cellulitis, improving 8. Anemia: stable, likely from anemia of chronic disease 9. Status post septic shock. 10. Diabetes mellitus. 11. Decubitus ulcer. 12. Congestive heart failure. 13. Seizure disorder. 14. pneumonia,s/p sepsis Plan continue antibiotics per ID Reglan for gastroparesis Bactroban to g tube site. Routine G-tube site care,colostomy bag attached to g tube site.no leakage of formula,or even ascites fluid wound care nurse f/u for G-tube care paracentesis when abdomen more distended Dr. Yanes to resume care of this patient tomorrow. Problems: Consultation Date/Type/Reason Admit Date/Time Sep 17, 2016 at 18:49 Type of Consultation: GI 24 HR Interval Summary Free Text/Dictation resting, tolerating TF, no n/v Exam/Review of Systems Vital Signs Vitals Vital Signs Date Time Temp Pulse Resp B/P Pulse Ox O2 Delivery O2 Flow Rate FiO2 10/26/16 09:00 84 14 95 40 10/26/16 07:56 99.1 135/63 Intake and Output 10/25/16 10/25/16 10/26/16 15:00 23:00 07:00 Intake Total 105 ml 610 ml 805 ml Balance 105 ml 610 ml 805 ml Exam Psych: nl mood/affect, no complaints Head: atraumatic, normocephalic Eyes: EOMI, nl conjunctiva, nl lids ENMT: nl external ears & nose, nl lips & teeth, nl nasal mucosa & septum Neck: non-tender, supple Respiratory: clear to auscultation, normal air movement Cardiovascular: nl pulses, regular rate and rhythm Gastrointestinal: bowel sounds, non-tender, other (GT c/d/i), soft Results Result Diagram: 10/26/16 0625 10/26/16 0625 Results 24 hrs Laboratory Tests Test 10/26/16 06:25 Anion Gap 10 Basophils # 0.1 Basophils % 0.7 Blood Morphology Comment Blood Urea Nitrogen 39 H Calcium Level 8.3 L Carbon Dioxide Level 32 H Chloride Level 94 L Creatinine 1.33 H Eosinophils # 0.0 Eosinophils % 0.4 Glucose Level 112 Hematocrit 26.9 L Hemoglobin 8.6 L Lymphocytes # 1.4 Lymphocytes % 13.9 L Magnesium Level 2.1 Mean Corpuscular Hemoglobin 32.5 Mean Corpuscular Hemoglobin Concent 32.1 Mean Corpuscular Volume 101.2 H Mean Platelet Volume 7.8 Monocytes # 1.0 H Monocytes % 9.5 Neutrophils # 7.6 H Neutrophils % 75.5 Nucleated Red Blood Cells # 0.0 Nucleated Red Blood Cells % 0.0 Phosphorus Level 3.6 Platelet Count 280 Potassium Level 4.6 Random Vancomycin Level 13.8 Red Blood Count 2.66 L Red Cell Distribution Width 21.0 H Sodium Level 131 L White Blood Count 10.1 Medications Medications Current Medications Levetiracetam/ Dextrose (Keppra Iv/D5W) 105 ml @ 420 mls/hr Q12 IVPB Last administered on 10/26/16at 08:47; Admin Dose 420 MLS/HR; Start 09/18/16 at 09: 00 Collagenase (Santyl) 1 applic DAILY TOP Last administered on 10/25/16at 10:58; Admin Dose 1 APPLIC; Start 09/18/16 at 09:00 Acetaminophen (Tylenol Liquid) 650 mg Q4H PRN NGT PAIN AND OR ELEVATED TEMP Last administered on 09/29/16at 12:07; Admin Dose 650 MG; Start 09/18/16 at 08: 00 Bisacodyl (Dulcolax Supp) 10 mg DAILY PRN [place] CONSTIPATION; Start 09/18/16 at 08:00 Mupirocin (Bactroban) Apply to bilateral nares ... BID TOP Last administered on 10/26/16at 08:43; Admin Dose 1 APPLIC; Start 09/18/16 at 09:00 Mirtazapine (Remeron) 7.5 mg HS GTB Last administered on 10/25/16at 23:16; Admin Dose 7.5 MG; Start 09/18/16 at 21:00 Ondansetron HCl (Zofran Inj) 4 mg Q4H PRN IV NAUSEA AND/OR VOMITING; Start 08/24 at 08:00 Morphine Sulfate (morphine) 2 mg Q3H PRN IV PAIN LEVEL 6-10 Last administered on 09/28/16 12:25; Admin Dose 2 MG; Start 09/18/16 at 08:00 Lorazepam (Ativan) 0.5 mg Q3H PRN IV ANXIETY; Start 09/18/16 at 08:00 IV Flush (NS 10 ml) 10 ml PRN PRN IV IV PROTOCOL Last administered on 06:01; Admin Dose 10 ML; Start 09/18/16 at 13:00 Lansoprazole (Prevacid) 30 mg DAILY@06 PO Last administered on 10/26/16 06:01 ; Admin Dose 30 MG; Start 09/27/16 at 06:00 Apixaban (Eliquis) 2.5 mg BID GTB Last administered on 10/26/16 08:43; Admin Dose 2.5 MG; Start 09/30/16 at 09:00; Status Future hold Metoclopramide HCl (Reglan) 5 mg Q6 IV Last administered on 10/26/16 06:01; Admin Dose 5 MG; Start 09/30/16 at 12:00 Sildenafil Citrate (Revatio) 20 mg TID GTB Last administered on 10/26/16at 08: 43; Admin Dose 20 MG; Start 10/08/16 at 10:45 Pramoxine HCl 1 applic 1 applic TID [place] Last administered on 10/26/16at 08:44; Admin Dose 1 APPLIC; Start 10/10/16 at 21:00 Vancomycin HCl/ Sodium Chloride (Vancocin/NS) 250 ml @ 83.333 mls/ hr Q96H IVPB ; Start 10/26/16 at 14:00 CAMDEN FRITZ MD Oct 26, 2016 10:51
[2016-10-26] MEDS: COLLAGENASE 30 GM TUBE TOP SCH (11:08)
--- NOTE | 2016-10-26 13:42 | PN ---
DATE: 10/26/2016 SUBJECTIVE: The patient had hemodialysis yesterday, tolerated it well with 1.5 liters removed. No other events noted overnight. OBJECTIVE: VITAL SIGNS: Blood pressure is 135/63, respirations 19, pulse 100, temperature 99.1. HEENT: Head is normocephalic. NECK: Supple. HEART: Regular rate. LUNGS: Show diminished breath sounds at the base. ABDOMEN: Soft, nontender to palpation, positive distention. EXTREMITIES: Negative for clubbing, cyanosis, or edema. DERMATOLOGIC: No rashes. MUSCULOSKELETAL: No joint effusions. NEUROLOGIC: No change in exam. MEDICATIONS: Have been reviewed. LABORATORY DATA: Shows a white count of 10.1, hemoglobin 8.6, hematocrit 26.9, platelet count is 28 0. Sodium 131, potassium 4.6, chloride 94, BUN 39, creatinine 1.33. ASSESSMENT AND PLAN: 1. Sepsis secondary to pneumonia, decubitus wound. The patient is currently on antibiotics. The p santos's PICC line was removed. We will continue current treatment plan. Follow up repeat cultures . Follow up with ID. 2. Leukocytosis, improving. Continue to monitor. 3. End-stage renal disease. The patient had hemodialysis yesterday, tolerated well. Plan for dial ysis tomorrow. 4. Hyponatremia secondary to end-stage renal disease. Continue to limit free water intake. 5. Abdominal ascites, secondary to congestive heart failure, end-stage renal disease. The patient will continue current treatment plan. The patient receives paracentesis as needed. 6. Pulmonary hypertension. Continue sildenafil. 7. Decubitus wound. Continue wound care. 8. ____ anemia. Continue to monitor H and H levels. Continue Epogen. 9. Seizure disorder. Continue Keppra. 10. Dysphagia, status post percutaneous endoscopic gastrostomy tube feeding. 11. Ventilator-dependent respiratory failure. Vent settings have been reviewed. ABG has been revi ewed. Continue to monitor. 12. Atrial fibrillation, rate controlled. Continue medical management. 13. Encephalopathy. No change. 14. Gastrointestinal and deep vein thrombosis prophylaxis. Continue Eliquis. Dictated By: RUDDY BUSTILLOS/ARNOLDO Conf#: [id number] DID#: [id number]
[2016-10-26] MEDS: VANCOMYCIN 1.25 GM in SOD CHLORIDE 0.9% 250 ML IVPB SCH (14:47)
--- NOTE | 2016-10-26 14:56 | PN ---
DATE: CARDIOLOGY FOLLOWUP SUBJECTIVE: The patient was discussed with the staff. was reviewed and discussed with the billie graham's daughter. The patient remains in atrial fibrillation. Heart overall has been stable. The patient denies any chest pain or pressure to me. Status post trach on the vent. MEDICATIONS: Reviewed as per medication reconciliation, personally reviewed. PHYSICAL EXAMINATION: VITAL SIGNS: Temperature 98.5, heart rate of 86, blood pressure 105/54, respiratory rate of 16. HEENT: Normocephalic, atraumatic. Thin female. Pupils are equal. NECK: Supple. Trach on the vent. CARDIOVASCULAR: Irregularly irregular. Systolic and diastolic murmur heard. PULMONARY: With mild rhonchi, diffuse. GASTROINTESTINAL: Soft, nontender. Status post PEG placement. EXTREMITIES: With no significant lower extremity edema. NEUROLOGIC: Awake, responds appropriately. PSYCHIATRIC: Depressed mood, but very pleasant. LABORATORY: WBC of 10.5, hemoglobin 8.5, platelets 318. Sodium 132, potassium 4.2, BUN of 34, crea tinine 1.25, glucose of 102. ASSESSMENT AND PLAN: 1. Hypoxemic respiratory failure, status post tracheostomy, vent dependent. 2. History of pulmonary hypertension and possible ASD. 3. Renal failure on dialysis. 4. Atrial fibrillation, chronic, on anticoagulation now and heart rate control. 5. Status post sepsis and pneumonia. 6. Severe Anemia. RECOMMENDATIONS: We will continue with supportive care. Dialysis will be continued. Respiratory c are and vent support will be continued. Heart rate is currently under good control. Code status [facility] EMICAL CODE ONLY. Dictated By: AMANDA PINTO MD AV/ARNOLDO Conf#: [id number] DID#: [id number] CC: RUDDY GEE DO;*EndCC*
--- NOTE | 2016-10-26 15:20 | CONS ---
Date/Time of Note Date/Time of Note DATE: 10/26/16 TIME: 15:19 Consult Date/Type/Reason Admit Date/Time Sep 17, 2016 at 18:49 Type of Consultation: pulmonary Subjective Patient stable this morning Continues mechanical ventilation Status post hemodialysis without hypotension Objective Vital Signs Date Time Temp Pulse Resp B/P Pulse Ox O2 Delivery O2 Flow Rate FiO2 10/26/16 13:10 98 13 95 40 10/26/16 13:05 99.0 111/56 Intake and Output 10/25/16 10/25/16 10/26/16 14:59 22:59 06:59 Intake Total 105 ml 610 ml 805 ml Balance 105 ml 610 ml 805 ml GENERAL: Chronically ill-appearing lady on mechanical ventilation comfortable at rest VITAL SIGNS: per chart NECK: Supple. No JVD or lymphadenopathy. CARDIAC EXAM: S1, S2. No added sounds or murmurs. CHEST: clear bilaterally, No added sounds, rales or wheezes ABDOMEN: Soft, nontender. No guarding or rebound. Moderate distention EXTREMITIES: No cyanosis, clubbing edema +2 NEUROLOGIC: Generalized weakness. Results/Medications Result Diagram: 10/26/1625 10/26/16 0625 Results 24 hrs Laboratory Tests Test 10/26/16 06:25 Anion Gap 10 Basophils # 0.1 Basophils % 0.7 Blood Morphology Comment Blood Urea Nitrogen 39 H Calcium Level 8.3 L Carbon Dioxide Level 32 H Chloride Level 94 L Creatinine 1.33 H Eosinophils # 0.0 Eosinophils % 0.4 Glucose Level 112 Hematocrit 26.9 L Hemoglobin 8.6 L Lymphocytes # 1.4 Lymphocytes % 13.9 L Magnesium Level 2.1 Mean Corpuscular Hemoglobin 32.5 Mean Corpuscular Hemoglobin Concent 32.1 Mean Corpuscular Volume 101.2 H Mean Platelet Volume 7.8 Monocytes # 1.0 H Monocytes % 9.5 Neutrophils # 7.6 H Neutrophils % 75.5 Nucleated Red Blood Cells # 0.0 Nucleated Red Blood Cells % 0.0 Phosphorus Level 3.6 Platelet Count 280 Potassium Level 4.6 Random Vancomycin Level 13.8 Red Blood Count 2.66 L Red Cell Distribution Width 21.0 H Sodium Level 131 L White Blood Count 10.1 Medications Current Medications Levetiracetam/ Dextrose (Keppra Iv/D5W) 105 ml @ 420 mls/hr Q12 IVPB Last administered on 10/26/16 08:47; Admin Dose 420 MLS/HR; Start 09/18/16 at 09: 00 Collagenase (Santyl) 1 applic DAILY TOP Last administered on 10/26/16at 11:08; Admin Dose 1 APPLIC; Start 09/18/16 at 09:00 Acetaminophen (Tylenol Liquid) 650 mg Q4H PRN NGT PAIN AND OR ELEVATED TEMP Last administered on 09/29/16 12:07; Admin Dose 650 MG; Start 09/18/16 at 08: 00 Bisacodyl (Dulcolax Supp) 10 mg DAILY PRN [place] CONSTIPATION; Start 09/18/16 at 08:00 Mupirocin (Bactroban) Apply to bilateral nares ... BID TOP Last administered on 10/26/16 08:43; Admin Dose 1 APPLIC; Start 09/18/16 at 09:00 Mirtazapine (Remeron) 7.5 mg HS GTB Last administered on 10/25/16 23:16; Admin Dose 7.5 MG; Start 09/18/16 at 21:00 Ondansetron HCl (Zofran Inj) 4 mg Q4H PRN IV NAUSEA AND/OR VOMITING; Start 08/24 at 08:00 Morphine Sulfate (morphine) 2 mg Q3H PRN IV PAIN LEVEL 6-10 Last administered on 09/28/16at 12:25; Admin Dose 2 MG; Start 09/18/16 at 08:00 Lorazepam (Ativan) 0.5 mg Q3H PRN IV ANXIETY; Start 09/18/16 at 08:00 IV Flush (NS 10 ml) 10 ml PRN PRN IV IV PROTOCOL Last administered on at 06:01; Admin Dose 10 ML; Start 09/18/16 at 13:00 Lansoprazole (Prevacid) 30 mg DAILY@06 PO Last administered on 10/26/16 06:01 ; Admin Dose 30 MG; Start 09/27/16 at 06:00 Apixaban (Eliquis) 2.5 mg BID GTB Last administered on 10/26/16 08:43; Admin Dose 2.5 MG; Start 09/30/16 at 09:00; Status Future hold Metoclopramide HCl (Reglan) 5 mg Q6 IV Last administered on 12/18/16at 13:15; Admin Dose 5 MG; Start 09/30/16 at 12:00 Sildenafil Citrate (Revatio) 20 mg TID GTB Last administered on 10/26/16at 13: 15; Admin Dose 20 MG; Start 10/08/16 at 10:45 Pramoxine HCl 1 applic 1 applic TID [place] Last administered on 10/26/16at 13:15; Admin Dose 1 APPLIC; Start 10/10/16 at 21:00 Vancomycin HCl/ Sodium Chloride (Vancocin/NS) 250 ml @ 83.333 mls/ hr Q96H IVPB Last administered on 10/26/16at 14:47; Admin Dose 83.333 MLS/HR; Start at 14:00 Assessment/Plan Chief Complaint/Hosp Course IMPRESSION AND PLAN: 1. Ventilator-dependent respiratory failure. 2. Status post septic shock. 3. Polymicrobial sepsis. Now normal white blood cell count 4. End-stage renal failure on hemodialysis. 5. G tube malfunction / leak PLAN: 1. Continue vent support. 2. Continue ID recommendations. Consider de-escalation of antibiotics 3. Continue wound care. 4. Continue DVT and GI prophylaxis. 5. GI recs Consider [facility] to [facility] Problems: JULIA HERNANDEZ MD, [facility] Oct 26, 2016 15:20
--- NOTE | 2016-10-26 18:14 | CONS ---
Date/Time of Note Date/Time of Note DATE: 10/26/16 TIME: 18:09 Assessment/Plan Assessment/Plan Chief Complaint/Hosp Course ID PROGRESS NOTE 24H INTERVAL SUMMARY * No new issues overnight, low grade Temp 99.+,Noncommunicative/Trach/Peg * PICC DC'd after 10/21 BCx (+)Staph-CoNS * ABX = Vanco IV PHYSICAL EXAMINATION: GENERAL: Looks comfortable resting on Vent / NAD HEENT: Unremarkable NECK: Trach clean CHEST: Rise symmetrical,=> Vented course BS HEART: Pulse RRR ABDOMEN: Soft, benign - Peg EXTREMITIES: Warm, no edema SKIN: STG IV DECUB -> See photos ID ASSESSMENT 81 yo H F w/PMHx Afib, CVA, VDRF-Trach since OCT 2015, Peg, COPD, ESRD admit with: 1. Sepsis w/Staph-CoNS (+)Bacteremia on => due to PICC LINE sepsis -> PICC DC'd = RESOLVING * s/p Sepsis w/shock on admission => hypotension on pressors on admission RESOLVED ->Likely GNR from GNR HCAP + DECUB + ?bladder sepsis - anuric * Leukocytosis on admit * Low grade temps on admit 99.7 * Encephalopathy 2/2 #1 2. s/p GNR HCAP = (+PSAR sensitive to Amikacin = s/p ABX RX 3. Right pleural effusion, possibly underlying healthcare-associated pneumonia. 3. Acute decompensated heart failure, right-sided heart failure. Continue ultrafiltration dialysis. 4. Dysfunctional G-tube with NG tube in place. 5. ESRD-> HD w/PermCath 6. Ascites=> s/p paracentesis 09/24=> cx negative 7. STG IV coccygeal decub present on admission * Wound Cx(+)MRSA 8. (+)Glabrata UTI -> Urostasis 2nd anuric 9. Oral candidiasis ( + )MRSA Nares ->Bactroban INVASIVES: Trach, Peg, NGT, PermCath ABX ALLERGY: PCN/SULFA CURRENT ABX: ABX => s/p Vanco IV s/p Vanco IV + Amikacin + Flagyl ID RECOMMENDATIONS Repeat BCx from PermCath next HD-> IF BCx (+) may need to change vs attempt line salvage. Continue Vanco IV x 14 days total . . . Problems: Consultation Date/Type/Reason Admit Date/Time Sep 17, 2016 at 18:49 Type of Consultation: id Exam/Review of Systems Vital Signs Vitals Vital Signs Date Time Temp Pulse Resp B/P Pulse Ox O2 Delivery O2 Flow Rate FiO2 10/26/16 17:05 89 12 98 40 10/26/16 13:05 99.0 111/56 Intake and Output 10/25/16 10/25/16 10/26/16 15:00 23:00 07:00 Intake Total 105 ml 610 ml 805 ml Balance 105 ml 610 ml 805 ml Results Result Diagram: 10/26/16 0625 10/26/16 0625 Results 24 hrs Laboratory Tests Test 10/26/16 06:25 Anion Gap 10 Basophils # 0.1 Basophils % 0.7 Blood Morphology Comment Blood Urea Nitrogen 39 H Calcium Level 8.3 L Carbon Dioxide Level 32 H Chloride Level 94 L Creatinine 1.33 H Eosinophils # 0.0 Eosinophils % 0.4 Glucose Level 112 Hematocrit 26.9 L Hemoglobin 8.6 L Lymphocytes # 1.4 Lymphocytes % 13.9 L Magnesium Level 2.1 Mean Corpuscular Hemoglobin 32.5 Mean Corpuscular Hemoglobin Concent 32.1 Mean Corpuscular Volume 101.2 H Mean Platelet Volume 7.8 Monocytes # 1.0 H Monocytes % 9.5 Neutrophils # 7.6 H Neutrophils % 75.5 Nucleated Red Blood Cells # 0.0 Nucleated Red Blood Cells % 0.0 Phosphorus Level 3.6 Platelet Count 280 Potassium Level 4.6 Random Vancomycin Level 13.8 Red Blood Count 2.66 L Red Cell Distribution Width 21.0 H Sodium Level 131 L White Blood Count 10.1 Medications Medications Current Medications Levetiracetam/ Dextrose (Keppra Iv/D5W) 105 ml @ 420 mls/hr Q12 IVPB Last administered on 10/26/16at 08:47; Admin Dose 420 MLS/HR; Start 09/18/16 at 09: 00 Collagenase (Santyl) 1 applic DAILY TOP Last administered on 10/26/16at 11:08; Admin Dose 1 APPLIC; Start 09/18/16 at 09:00 Acetaminophen (Tylenol Liquid) 650 mg Q4H PRN NGT PAIN AND OR ELEVATED TEMP Last administered on 09/29/16at 12:07; Admin Dose 650 MG; Start 09/18/16 at 08: 00 Bisacodyl (Dulcolax Supp) 10 mg DAILY PRN [place] CONSTIPATION; Start 09/18/16 at 08:00 Mupirocin (Bactroban) Apply to bilateral nares ... BID TOP Last administered on 10/26/16 08:43; Admin Dose 1 APPLIC; Start 09/18/16 at 09:00 Mirtazapine (Remeron) 7.5 mg HS GTB Last administered on 10/25/16at 23:16; Admin Dose 7.5 MG; Start 09/18/16 at 21:00 Ondansetron HCl (Zofran Inj) 4 mg Q4H PRN IV NAUSEA AND/OR VOMITING; Start 08/24 at 08:00 Morphine Sulfate (morphine) 2 mg Q3H PRN IV PAIN LEVEL 6-10 Last administered on 09/28/16at 12:25; Admin Dose 2 MG; Start 09/18/16 at 08:00 Lorazepam (Ativan) 0.5 mg Q3H PRN IV ANXIETY; Start 09/18/16 at 08:00 IV Flush (NS 10 ml) 10 ml PRN PRN IV IV PROTOCOL Last administered on at 06:01; Admin Dose 10 ML; Start 09/18/16 at 13:00 Lansoprazole (Prevacid) 30 mg DAILY@06 PO Last administered on 10/26/16at 06:01 ; Admin Dose 30 MG; Start 09/27/16 at 06:00 Apixaban (Eliquis) 2.5 mg BID GTB Last administered on 10/26/16 08:43; Admin Dose 2.5 MG; Start 09/30/16 at 09:00; Status Future hold Metoclopramide HCl (Reglan) 5 mg Q6 IV Last administered on 10/26/16 17:50; Admin Dose 5 MG; Start 09/30/16 at 12:00 Sildenafil Citrate (Revatio) 20 mg TID GTB Last administered on 10/26/16 13: 15; Admin Dose 20 MG; Start 10/08/16 at 10:45 Pramoxine HCl 1 applic 1 applic TID [place] Last administered on 10/26/16 13:15; Admin Dose 1 APPLIC; Start 12/2/16 at 21:00 Vancomycin HCl/ Sodium Chloride (Vancocin/NS) 250 ml @ 83.333 mls/ hr Q96H IVPB Last administered on 10/26/16at 14:47; Admin Dose 83.333 MLS/HR; Start at 14:00 JOEY RODRIGUEZ NP Oct 26, 2016 18:14
[2016-10-26] MEDS: MIRTAZAPINE 15 MG TAB GTB SCH (22:20)
[2016-10-27] VITALS (29 sets, daily range): BP systolic 87–129; BP diastolic 44–62; PULSE 85–118; RESP 12–25
[2016-10-27] MEDS: METOCLOPRAMIDE 10 MG INJ IV SCH ×5 (00:09→23:32)
[2016-10-27] MEDS: LEVALBUTEROL (HFA) 15 GM INHALER INH SCH ×6 (01:45→20:52)
[2016-10-27] MEDS: IPRATROPIUM (HFA) 12.9 GM INHALER INH SCH ×6 (01:45→20:52)
[2016-10-27] MEDS: LANSOPRAZOLE 30 MG CAP PO SCH (05:37)
[2016-10-27 07:14] LABS: BASOPHIL # 0.1 10^3/ul (0.0-0.1); BASOPHILS % 0.9 % (0.0-2.0); EOSINOPHILS # 0.1 10^3/ul (0.0-0.5); EOSINOPHILS % 0.7 % (0.0-7.0); HEMATOCRIT 26.5 % (37.0-47.0); HEMOGLOBIN 8.5 g/dl (12.0-16.0); LYMPHOCYTES # 1.6 10^3/ul (0.8-2.9); LYMPHOCYTES % 16.3 % (15.0-51.0); MEAN CORPUSCULAR HEMOGLOBIN 32.2 pg (29.0-33.0); MEAN CORPUSCULAR HGB CONC 32.1 g/dl (32.0-37.0); MEAN CORPUSCULAR VOLUME 100.5 fl (82.0-101.0); MEAN PLATELET VOLUME 7.5 fl (7.4-10.4); MONOCYTES % 10.1 % (0.0-11.0); NEUTROPHIL # 7.1 10^3/ul (1.6-7.5); PLATELET COUNT 270 10^3/UL (140-440); RED BLOOD COUNT 2.63 10^6/ul (4.20-5.40); RED CELL DISTRIBUTION WIDTH 21.3 % (11.5-14.5); UNCORRECTED WBC 9.9 10^3/ul (4.8-10.8); WHITE BLOOD COUNT 9.9 10^3/ul (4.8-10.8)
[2016-10-27 07:16] LABS: CONDITION 1; LH ANALYZER COMMENTS 1; SUSPECT 1
[2016-10-27 07:28] LABS: POTASSIUM 4.9 mmol/L (3.5-5.1)
[2016-10-27 07:31] LABS: CREATININE 1.59 mg/dl (0.44-1.00); PHOSPHORUS 3.6 mg/dl (2.5-4.9)
[2016-10-27 07:32] LABS: MAGNESIUM 2.1 mg/dl (1.7-2.5)
[2016-10-27] MEDS: BUDESONIDE (NEB) 0.5MG/2ML AMP HHN SCH ×2 (08:26→20:52)
[2016-10-27] MEDS: SILDENAFIL 20 MG TAB GTB SCH ×3 (09:00→21:01)
[2016-10-27] MEDS: PRAMOXINE 1% 15 GM RECT FOAM PR SCH ×3 (09:00→21:04)
[2016-10-27] MEDS: COLLAGENASE 30 GM TUBE TOP SCH (09:00)
--- NOTE | 2016-10-27 10:09 | PN ---
DATE: 10/27/2016 SUBJECTIVE: The patient is stable, no acute events overnight. No fevers, chills, nausea, vomiting. OBJECTIVE: VITAL SIGNS: Blood pressure is 114/54, respirations 25, pulse 93, temperature 98.2. HEENT: Head is normocephalic. NECK: Supple. HEART: Regular rate. LUNGS: Show diminished breath sounds at base. ABDOMEN: Soft, nontender to palpation without rebound or guarding. Positive PEG. EXTREMITIES: Negative for clubbing, cyanosis. No edema. DERMATOLOGIC: No rashes. MUSCULOSKELETAL: No joint effusions. NEUROLOGIC: No change in exam. MEDICATIONS: The patient's medications have been reviewed. LABORATORY DATA: Shows white count 9.9, hemoglobin 8.5, hematocrit 26.5, platelet count 270. Sodiu m 129, potassium 4.5, chloride 92, BUN 50, creatinine 1.59. ASSESSMENT AND PLAN: 1. Sepsis secondary to pneumonia, decubitus wound bacteremia due to PICC line infection. The tiff nt's PICC line has been removed. The patient is on antibiotics. Repeat cultures are pending. Cont inue to monitor. 2. End-stage renal disease. The patient is on hemodialysis, tolerating well. Plan for dialysis to day. 3. Hyponatremia secondary to end-stage renal disease. Continue to limit free water intake. The bo mariano will be dialyzed on a 140 sodium bath. 4. Abdominal ascites secondary to congestive heart failure to end-stage renal disease. Continue cu rrent treatment plan. Will give paracenteses as needed. 5. Pulmonary hypertension. Continue sildenafil. 6. Decubitus wound. Continue wound care. 7. Anemia. Continue to monitor hemoglobin and hematocrit levels. Continue Epogen. 8. Seizure disorder. Continue Keppra. 9. Dysphagia, status post percutaneous endoscopic gastrostomy. Continue tube feeds. 10. Ventilator dependent respiratory failure. Vent settings have been reviewed. ABG has been revi ewed. Continue to monitor. 11. Atrial fibrillation, rate controlled. Continue medical management. 12. Encephalopathy. No change. 13. Gastrointestinal and deep venous thrombosis prophylaxis. Continue PPI and Eliquis. Dictated By: RUDDY BUSTILLOS/ARNOLDO Conf#: [id number] DID#: [id number]
[2016-10-27] MEDS: LEVETIRACETAM IV 500 MG in DEXTROSE 5% 100 ML IVPB SCH ×2 (10:19→20:59)
[2016-10-27] MEDS: APIXABAN 5 MG TABLET GTB SCH ×2 (10:19→21:00)
[2016-10-27] MEDS: MUPIROCIN 2% 22 GM OINT TOP SCH ×2 (10:20→21:04)
--- NOTE | 2016-10-27 15:04 | CONS ---
Date/Time of Note Date/Time of Note DATE: 10/27/16 TIME: 15:02 Consult Date/Type/Reason Admit Date/Time Sep 17, 2016 at 18:49 Type of Consultation: pulmonary Subjective Patient stable Objective Vital Signs Date Time Temp Pulse Resp B/P Pulse Ox O2 Delivery O2 Flow Rate FiO2 10/27/16 13:00 104 10/27/16 12:00 16 10/27/16 11:45 98.5 129/62 99 10/27/16 11:05 40 Intake and Output 10/26/16 10/26/16 10/27/16 15:00 23:00 07:00 Intake Total 105 ml 860 ml 700 ml Balance 105 ml 860 ml 700 ml GENERAL: Chronically ill-appearing lady on mechanical ventilation comfortable at rest VITAL SIGNS: per chart NECK: Supple. No JVD or lymphadenopathy. CARDIAC EXAM: S1, S2. No added sounds or murmurs. CHEST: clear bilaterally, No added sounds, rales or wheezes ABDOMEN: Soft, nontender. No guarding or rebound. Moderate distention EXTREMITIES: No cyanosis, clubbing edema +2 NEUROLOGIC: Generalized weakness. Results/Medications Result Diagram: 10/27/16 0555 10/27/16 0555 Results 24 hrs Laboratory Tests Test 10/27/16 05:55 Anion Gap 10 Basophils # 0.1 Basophils % 0.9 Blood Morphology Comment Blood Urea Nitrogen 50 H Calcium Level 8.0 L Carbon Dioxide Level 32 H Chloride Level 92 L Creatinine 1.59 H Eosinophils # 0.1 Eosinophils % 0.7 Glucose Level 88 Hematocrit 26.5 L Hemoglobin 8.5 L Lymphocytes # 1.6 Lymphocytes % 16.3 Magnesium Level 2.1 Mean Corpuscular Hemoglobin 32.2 Mean Corpuscular Hemoglobin Concent 32.1 Mean Corpuscular Volume 100.5 Mean Platelet Volume 7.5 Monocytes # 1.0 H Monocytes % 10.1 Neutrophils # 7.1 Neutrophils % 72.0 Nucleated Red Blood Cells # 0.0 Nucleated Red Blood Cells % 0.0 Phosphorus Level 3.6 Platelet Count 270 Potassium Level 4.9 Red Blood Count 2.63 L Red Cell Distribution Width 21.3 H Sodium Level 129 L White Blood Count 9.9 Medications Current Medications Levetiracetam/ Dextrose (Keppra Iv/D5W) 105 ml @ 420 mls/hr Q12 IVPB Last administered on 10/27/16 10:19; Admin Dose 420 MLS/HR; Start 09/18/16 at 09: 00 Collagenase (Santyl) 1 applic DAILY TOP Last administered on 10/27/16 09:00; Admin Dose 1 APPLIC; Start 09/18/16 at 09:00 Acetaminophen (Tylenol Liquid) 650 mg Q4H PRN NGT PAIN AND OR ELEVATED TEMP Last administered on 09/29/16 12:07; Admin Dose 650 MG; Start 09/18/16 at 08: 00 Bisacodyl (Dulcolax Supp) 10 mg DAILY PRN [place] CONSTIPATION; Start 09/18/16 at 08:00 Mupirocin (Bactroban) Apply to bilateral nares ... BID TOP Last administered on 10/27/16 10:20; Admin Dose 1 APPLIC; Start 09/18/16 at 09:00 Mirtazapine (Remeron) 7.5 mg HS GTB Last administered on 10/26/16 22:20; Admin Dose 7.5 MG; Start 09/18/16 at 21:00 Ondansetron HCl (Zofran Inj) 4 mg Q4H PRN IV NAUSEA AND/OR VOMITING; Start 08/24 at 08:00 Morphine Sulfate (morphine) 2 mg Q3H PRN IV PAIN LEVEL 6-10 Last administered on 09/28/16 12:25; Admin Dose 2 MG; Start 09/18/16 at 08:00 Lorazepam (Ativan) 0.5 mg Q3H PRN IV ANXIETY; Start 09/18/16 at 08:00 IV Flush (NS 10 ml) 10 ml PRN PRN IV IV PROTOCOL Last administered on at 06:01; Admin Dose 10 ML; Start 09/18/16 at 13:00 Lansoprazole (Prevacid) 30 mg DAILY@06 PO Last administered on 10/27/16 05:37 ; Admin Dose 30 MG; Start 09/27/16 at 06:00 Apixaban (Eliquis) 2.5 mg BID GTB Last administered on 10/27/16 10:19; Admin Dose 2.5 MG; Start 09/30/16 at 09:00; Status Future hold Metoclopramide HCl (Reglan) 5 mg Q6 IV Last administered on 12/19/16at 12:28; Admin Dose 5 MG; Start 09/30/16 at 12:00 Sildenafil Citrate (Revatio) 20 mg TID GTB Last administered on 10/27/16at 09: 00; Admin Dose 20 MG; Start 10/08/16 at 10:45 Pramoxine HCl 1 applic 1 applic TID [place] Last administered on 10/27/16at 09:00; Admin Dose 1 APPLIC; Start 10/10/16 at 21:00 Vancomycin HCl/ Sodium Chloride (Vancocin/NS) 250 ml @ 83.333 mls/ hr Q96H IVPB Last administered on 10/26/16at 14:47; Admin Dose 83.333 MLS/HR; Start at 14:00 Assessment/Plan Chief Complaint/Hosp Course IMPRESSION AND PLAN: 1. Ventilator-dependent respiratory failure. 2. Status post septic shock. 3. Polymicrobial sepsis. Now normal white blood cell count 4. End-stage renal failure on hemodialysis. 5. G tube malfunction / leak PLAN: 1. Continue vent support. 2. Continue ID recommendations. Consider de-escalation of antibiotics 3. Continue wound care. 4. Continue DVT and GI prophylaxis. 5. GI recs Consider transfer back to intermediate facility Discussed with primary care physician, case management looking for facility Problems: JULIA HERNANDEZ MD, [facility] Oct 27, 2016 15:04
--- NOTE | 2016-10-27 16:01 | CONS ---
Date/Time of Note Date/Time of Note DATE: 10/27/16 TIME: 15:59 Consult Date/Type/Reason Admit Date/Time Sep 17, 2016 at 18:49 Type of Consultation: ID Subjective no events per report, afebrile, nad Objective Vital Signs Date Time Temp Pulse Resp B/P Pulse Ox O2 Delivery O2 Flow Rate FiO2 10/27/16 15:25 98.3 75 24 113/56 97 10/27/16 11:05 40 Intake and Output 10/26/16 10/26/16 10/27/16 15:00 23:00 07:00 Intake Total 105 ml 860 ml 700 ml Balance 105 ml 860 ml 700 ml Results/Medications Result Diagram: 10/27/16 0555 10/27/16 0555 Results 24 hrs Laboratory Tests Test 10/27/16 05:55 Anion Gap 10 Basophils # 0.1 Basophils % 0.9 Blood Morphology Comment Blood Urea Nitrogen 50 H Calcium Level 8.0 L Carbon Dioxide Level 32 H Chloride Level 92 L Creatinine 1.59 H Eosinophils # 0.1 Eosinophils % 0.7 Glucose Level 88 Hematocrit 26.5 L Hemoglobin 8.5 L Lymphocytes # 1.6 Lymphocytes % 16.3 Magnesium Level 2.1 Mean Corpuscular Hemoglobin 32.2 Mean Corpuscular Hemoglobin Concent 32.1 Mean Corpuscular Volume 100.5 Mean Platelet Volume 7.5 Monocytes # 1.0 H Monocytes % 10.1 Neutrophils # 7.1 Neutrophils % 72.0 Nucleated Red Blood Cells # 0.0 Nucleated Red Blood Cells % 0.0 Phosphorus Level 3.6 Platelet Count 270 Potassium Level 4.9 Red Blood Count 2.63 L Red Cell Distribution Width 21.3 H Sodium Level 129 L White Blood Count 9.9 Medications Current Medications Levetiracetam/ Dextrose (Keppra Iv/D5W) 105 ml @ 420 mls/hr Q12 IVPB Last administered on 10/27/16at 10:19; Admin Dose 420 MLS/HR; Start 09/18/16 at 09: 00 Collagenase (Santyl) 1 applic DAILY TOP Last administered on 10/27/16at 09:00; Admin Dose 1 APPLIC; Start 09/18/16 at 09:00 Acetaminophen (Tylenol Liquid) 650 mg Q4H PRN NGT PAIN AND OR ELEVATED TEMP Last administered on 09/29/16at 12:07; Admin Dose 650 MG; Start 09/18/16 at 08: 00 Bisacodyl (Dulcolax Supp) 10 mg DAILY PRN [place] CONSTIPATION; Start 09/18/16 at 08:00 Mupirocin (Bactroban) Apply to bilateral nares ... BID TOP Last administered on 10/27/16at 10:20; Admin Dose 1 APPLIC; Start 09/18/16 at 09:00 Mirtazapine (Remeron) 7.5 mg HS GTB Last administered on 10/26/16at 22:20; Admin Dose 7.5 MG; Start 09/18/16 at 21:00 Ondansetron HCl (Zofran Inj) 4 mg Q4H PRN IV NAUSEA AND/OR VOMITING; Start 08/24 at 08:00 Morphine Sulfate (morphine) 2 mg Q3H PRN IV PAIN LEVEL 6-10 Last administered on 09/28/16at 12:25; Admin Dose 2 MG; Start 09/18/16 at 08:00 Lorazepam (Ativan) 0.5 mg Q3H PRN IV ANXIETY; Start 09/18/16 at 08:00 IV Flush (NS 10 ml) 10 ml PRN PRN IV IV PROTOCOL Last administered on at 06:01; Admin Dose 10 ML; Start 09/18/16 at 13:00 Lansoprazole (Prevacid) 30 mg DAILY@06 PO Last administered on 10/27/16at 05:37 ; Admin Dose 30 MG; Start 09/27/16 at 06:00 Apixaban (Eliquis) 2.5 mg BID GTB Last administered on 10/27/16at 10:19; Admin Dose 2.5 MG; Start 09/30/16 at 09:00; Status Future hold Metoclopramide HCl (Reglan) 5 mg Q6 IV Last administered on 10/27/16at 12:28; Admin Dose 5 MG; Start 09/30/16 at 12:00 Sildenafil Citrate (Revatio) 20 mg TID GTB Last administered on 10/27/16at 09: 00; Admin Dose 20 MG; Start 10/08/16 at 10:45 Pramoxine HCl 1 applic 1 applic TID [place] Last administered on 10/27/16at 09:00; Admin Dose 1 APPLIC; Start 10/10/16 at 21:00 Vancomycin HCl/ Sodium Chloride (Vancocin/NS) 250 ml @ 83.333 mls/ hr Q96H IVPB Last administered on 10/26/16at 14:47; Admin Dose 83.333 MLS/HR; Start at 14:00 Assessment/Plan Chief Complaint/Hosp Course INDWELLING: trach, PEG, RIJ Perm-A-Cath Micro: 10/21 Bld cx + Staph species Abx: Vanco PHYSICAL EXAMINATION: GENERAL: Fragile, chronically ill-appearing, elderly woman who is lying comfortably in bed. HEENT: Head atraumatic, normocephalic. Sclerae anicteric. Buccal mucosa dry. NECK: Supple. Tracheostomy present. CHEST: Rise symmetrical. Breath sounds diminished to bases. HEART: S1, S2. ABDOMEN: Soft, bowel tones present. EXTREMITIES: Without cyanosis. ASSESSMENT: 1. Status post septic shock shock. 2. GPC septicemia===> PICC dc'd 2. S/p healthcare-associated pneumonia with parapneumonic pleural effusion and sputum culture growing multi-drug resistant Pseudomonas aeruginosa. 3. Methicillin-resistant Staphylococcus aureus infected decubitus. 4. S/p joe glabrata urinary tract infection. 5. Methicillin-resistant Staphylococcus aureus nares colonization. 6. End-stage renal disease, hemodialysis dependent. 7. History of cerebrovascular accident. 8. Recurrent ascites==> s/p paracentesis 09/24, 10/14 9. ALLERGY TO PENICILLIN AND SULFA. PLAN: Clinically unchanged, no fevers, continue Vanco, repeat bld cx's with HD today VINAY RN Problems: RAISSA ROA NP Oct 27, 2016 16:01
--- NOTE | 2016-10-27 17:08 | CONS ---
Date/Time of Note Date/Time of Note DATE: 10/27/16 TIME: 17:06 Assessment/Plan Assessment/Plan Additional Assessment/Plan Additional Assessment/Plan ASSESSMENT: 1. Renal failure on dialysis. 2. Vent dependent respiratory failure. 3. Chronic obstructive pulmonary disease. 4. Atrial fibrillation. 5. Ascites, successful paracentesis done. 6. Dysphagia 7. G-tube clean,no leakage,tolerating feeding 8. Anemia: stable, likely from anemia of chronic disease 9. Status post septic shock. 10. Diabetes mellitus. 11. Decubitus ulcer. 12. Congestive heart failure. 13. Seizure disorder. 14. pneumonia,s/p sepsis 15.pulmonary hypertension 16 persistent leucocytosis,better 17.pressure ulcer g tube site Plan continue antibiotics per ID Reglan for gastroparesis Bactroban to g tube site. Routine G-tube site ,no leakage of formula,or even ascites fluid wound care nurse has not seen pt. continue present care paracentesis when abdomen more distended Consultation Date/Type/Reason Admit Date/Time Sep 17, 2016 at 18:49 Type of Consultation: ID [id number] HR Interval Summary Constitutional: improved, no complaints Exam/Review of Systems Vital Signs Vitals Vital Signs Date Time Temp Pulse Resp B/P Pulse Ox O2 Delivery O2 Flow Rate FiO2 10/27/16 17:00 86 10/27/16 15:25 98.3 24 113/56 97 10/27/16 11:05 40 Intake and Output 10/26/16 10/26/16 10/27/16 15:00 23:00 07:00 Intake Total 105 ml 860 ml 700 ml Balance 105 ml 860 ml 700 ml Exam Constitutional: alert, oriented, well developed Psych: nl mood/affect, no complaints Head: atraumatic, normocephalic Eyes: EOMI, PERRL, nl conjunctiva, nl lids, nl sclera ENMT: nl external ears & nose, nl lips & teeth, nl nasal mucosa & septum Neck: non-tender, supple Respiratory: clear to auscultation, normal air movement Cardiovascular: nl pulses, regular rate and rhythm Gastrointestinal: nl liver, spleen, non-tender, soft Musculoskeletal: nl extremities to inspection, nl gait and stance Extremities: normal pulses 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, nl mental status, nl speech, nl strength Skin: nl turgor, No rash or lesions Lymph: nl lymph nodes Results Result Diagram: 10/27/16 0555 10/27/16 0555 Results 24 hrs Laboratory Tests Test 10/27/16 05:55 Anion Gap 10 Basophils # 0.1 Basophils % 0.9 Blood Morphology Comment Blood Urea Nitrogen 50 H Calcium Level 8.0 L Carbon Dioxide Level 32 H Chloride Level 92 L Creatinine 1.59 H Eosinophils # 0.1 Eosinophils % 0.7 Glucose Level 88 Hematocrit 26.5 L Hemoglobin 8.5 L Lymphocytes # 1.6 Lymphocytes % 16.3 Magnesium Level 2.1 Mean Corpuscular Hemoglobin 32.2 Mean Corpuscular Hemoglobin Concent 32.1 Mean Corpuscular Volume 100.5 Mean Platelet Volume 7.5 Monocytes # 1.0 H Monocytes % 10.1 Neutrophils # 7.1 Neutrophils % 72.0 Nucleated Red Blood Cells # 0.0 Nucleated Red Blood Cells % 0.0 Phosphorus Level 3.6 Platelet Count 270 Potassium Level 4.9 Red Blood Count 2.63 L Red Cell Distribution Width 21.3 H Sodium Level 129 L White Blood Count 9.9 Medications Medications Current Medications Levetiracetam/ Dextrose (Keppra Iv/D5W) 105 ml @ 420 mls/hr Q12 IVPB Last administered on 10/27/16at 10:19; Admin Dose 420 MLS/HR; Start 09/18/16 at 09: 00 Collagenase (Santyl) 1 applic DAILY TOP Last administered on 10/27/16at 09:00; Admin Dose 1 APPLIC; Start 09/18/16 at 09:00 Acetaminophen (Tylenol Liquid) 650 mg Q4H PRN NGT PAIN AND OR ELEVATED TEMP Last administered on 09/29/16at 12:07; Admin Dose 650 MG; Start 09/18/16 at 08: 00 Bisacodyl (Dulcolax Supp) 10 mg DAILY PRN [place] CONSTIPATION; Start 09/18/16 at 08:00 Mupirocin (Bactroban) Apply to bilateral nares ... BID TOP Last administered on 10/27/16at 10:20; Admin Dose 1 APPLIC; Start 09/18/16 at 09:00 Mirtazapine (Remeron) 7.5 mg HS GTB Last administered on 10/26/16at 22:20; Admin Dose 7.5 MG; Start 09/18/16 at 21:00 Ondansetron HCl (Zofran Inj) 4 mg Q4H PRN IV NAUSEA AND/OR VOMITING; Start 08/24 at 08:00 Morphine Sulfate (morphine) 2 mg Q3H PRN IV PAIN LEVEL 6-10 Last administered on 09/28/16at 12:25; Admin Dose 2 MG; Start 09/18/16 at 08:00 Lorazepam (Ativan) 0.5 mg Q3H PRN IV ANXIETY; Start 09/18/16 at 08:00 IV Flush (NS 10 ml) 10 ml PRN PRN IV IV PROTOCOL Last administered on 06:01; Admin Dose 10 ML; Start 09/18/16 at 13:00 Lansoprazole (Prevacid) 30 mg DAILY@06 PO Last administered on 10/27/16 05:37 ; Admin Dose 30 MG; Start 09/27/16 at 06:00 Apixaban (Eliquis) 2.5 mg BID GTB Last administered on 10/27/16 10:19; Admin Dose 2.5 MG; Start 09/30/16 at 09:00; Status Future hold Metoclopramide HCl (Reglan) 5 mg Q6 IV Last administered on 10/27/16at 12:28; Admin Dose 5 MG; Start 09/30/16 at 12:00 Sildenafil Citrate (Revatio) 20 mg TID GTB Last administered on 10/27/16at 16: 56; Admin Dose 20 MG; Start 10/08/16 at 10:45 Pramoxine HCl 1 applic 1 applic TID MT Last administered on 10/27/16at 13:00; Admin Dose 1 APPLIC; Start 10/10/16 at 21:00 Vancomycin HCl/ Sodium Chloride (Vancocin/NS) 250 ml @ 83.333 mls/ hr Q96H IVPB Last administered on 10/26/16at 14:47; Admin Dose 83.333 MLS/HR; Start at 14:00 ANNABEL CISSE MD Oct 27, 2016 17:07
--- NOTE | 2016-10-27 19:03 | PN ---
DATE: 10/27/2016 CARDIOLOGY FOLLOWUP SUBJECTIVE: Discussed with the staff. Rhythm strip was reviewed. Discussed with the family at the bedside. The patient remains in atrial fibrillation. Heart rate remains stable. No chest pain or pressure reported. She is still on the vent, though. MEDICATIONS: Reviewed as per medical reconciliation, personally reviewed. PHYSICAL EXAMINATION: VITAL SIGNS: Temperature 98.3, heart rate of 75, blood pressure 113/56, respiration 24, satting 97% . HEENT: Normocephalic, atraumatic. Pupils are equal. CARDIOVASCULAR: Irregularly irregular. Systolic murmur. NECK: Supple. Trache, on the vent. PULMONARY: With no wheeze anteriorly, mild rhonchi. GASTROINTESTINAL: Soft, status post PEG placement. No rebound. EXTREMITIES: With trivial lower extremity edema. NEUROLOGIC: Awake, responds appropriately. PSYCHIATRIC: Depressed mood, but very pleasant. LABORATORY: WBC of 9.9, hemoglobin 8.5, platelet 270. Sodium 129, potassium 4.9, BUN of 50, creati nine 1.59, glucose of 88. ASSESSMENT AND PLAN: 1. Hypoxemic respiratory failure, status post tracheostomy, vent dependent. 2. Atrial fibrillation, chronic. Currently remains in heart rate control on anticoagulation. 3. Renal failure, currently on hemodialysis. Tolerating it well. 4. Pulmonary hypertension, possibly atrial septal defect on the ____. 5. Anemia. We will continue to monitor. Currently stable. 6. History of seizure disorder. 7. Dysphagia, status post percutaneous endoscopic gastrostomy placement. RECOMMENDATIONS: We will continue with the current cardiac care. Respiratory care will be continue d. Anticoagulation as tolerated. Monitor on telemetry. Dictated By: AMANDA LARA/ARNOLDO Conf#: [id number] DID#: [id number] CC: EWA MELISSA DO;*EndCC*
[2016-10-27] MEDS: MIRTAZAPINE 15 MG TAB GTB SCH (20:59)
[2016-10-27] MEDS ORDERED: [UNRECOGNIZED DRUG - OTHER] XX SCH (21:30)
[2016-10-27] MEDS: EPOETIN 10000 UNITS/1 ML INJ (ESRD) SC SCH (23:33)
[2016-10-28] VITALS (24 sets, daily range): BP systolic 98–133; BP diastolic 44–86; PULSE 84–92; RESP 12–25
[2016-10-28] MEDS: IPRATROPIUM (HFA) 12.9 GM INHALER INH SCH ×6 (01:07→20:49)
[2016-10-28] MEDS: LEVALBUTEROL (HFA) 15 GM INHALER INH SCH ×6 (01:07→20:49)
[2016-10-28] MEDS: LANSOPRAZOLE 30 MG CAP PO SCH (05:49)
[2016-10-28] MEDS: METOCLOPRAMIDE 10 MG INJ IV SCH ×4 (05:49→23:48)
[2016-10-28] MEDS: BUDESONIDE (NEB) 0.5MG/2ML AMP HHN SCH ×2 (09:00→20:49)
[2016-10-28] MEDS: LEVETIRACETAM IV 500 MG in DEXTROSE 5% 100 ML IVPB SCH ×2 (09:29→22:25)
[2016-10-28] MEDS: COLLAGENASE 30 GM TUBE TOP SCH (09:30)
[2016-10-28] MEDS: MUPIROCIN 2% 22 GM OINT TOP SCH ×2 (09:30→22:25)
[2016-10-28] MEDS: PRAMOXINE 1% 15 GM RECT FOAM PR SCH ×3 (09:30→22:26)
[2016-10-28] MEDS: SILDENAFIL 20 MG TAB GTB SCH ×3 (09:30→21:00)
[2016-10-28] MEDS: APIXABAN 5 MG TABLET GTB SCH ×2 (09:30→22:24)
--- NOTE | 2016-10-28 10:02 | PN ---
DATE: 10/28/2016 SUBJECTIVE: The patient had hemodialysis yesterday, tolerated it well with 1 L removed. No other a cute events noted. OBJECTIVE: VITAL SIGNS: Blood pressure 113/51, respirations 23, pulse 86, temperature 98.4. HEENT: Head is normocephalic. NECK: Supple. HEART: Regular rate. LUNGS: Show diminished breath sounds at the base. ABDOMEN: Soft, nontender to palpation. Positive distention. Positive PEG tube. EXTREMITIES: Negative for clubbing, cyanosis. No edema. DERMATOLOGIC: No rashes. MUSCULOSKELETAL: No joint effusions. NEUROLOGIC: No change in exam. MEDICATIONS: The patient's medications have been reviewed. LABORATORY DATA: This morning has been reviewed. No new labs. ASSESSMENT AND PLAN: 1. Sepsis secondary to pneumonia, decubitus wound, and bacteremia secondary to PICC line infection. The patient's PICC line has been removed. The patient is on antibiotics. Repeat cultures have be en negative. Continue to monitor. 2. End-stage renal disease. The patient had hemodialysis yesterday, tolerated it well. Plan for d ialysis tomorrow. 3. Hyponatremia secondary to end-stage renal disease. Continue to limit free water intake. Contin ue dialysis on a 140 sodium bath. 4. Abdominal ascites secondary to congestive heart failure and end-stage renal disease. Continue u ltrafiltration with dialysis. 5. Pulmonary hypertension. Continue sildenafil. 6. Decubitus wound. Continue wound care. 7. Anemia. Continue to monitor hemoglobin and hematocrit levels. Continue Epogen. 8. Seizure disorder. Continue Keppra. 9. Dysphagia status post PEG. Continue tube feeding. 10. Ventilator-dependent respiratory failure. Vent settings have been reviewed. ABG has been revi ewed. Continue to monitor. 11. Atrial fibrillation, rate controlled. Continue medical management. 12. Encephalopathy. No change. 13. Gastrointestinal and deep venous thrombosis prophylaxis. Continue proton pump inhibitor and El iquis. Dictated By: RUDDY BUSTILLOS/ARNOLDO Conf#: [id number] DID#: [id number]
--- NOTE | 2016-10-28 10:57 | CONS ---
Date/Time of Note Date/Time of Note DATE: 10/28/16 TIME: 10:56 Assessment/Plan Assessment/Plan Additional Assessment/Plan Assessment/Plan Additional Assessment/Plan Additional Assessment/Plan ASSESSMENT: 1. Renal failure on dialysis. 2. Vent dependent respiratory failure. 3. Chronic obstructive pulmonary disease. 4. Atrial fibrillation. 5. Ascites, successful paracentesis done. 6. Dysphagia 7. G-tube clean,no leakage,tolerating feeding 8. Anemia: stable, likely from anemia of chronic disease 9. Status post septic shock. 10. Diabetes mellitus. 11. Decubitus ulcer. 12. Congestive heart failure. 13. Seizure disorder. 14. pneumonia,s/p sepsis 15.pulmonary hypertension 16 persistent leucocytosis,better 17.pressure ulcer g tube site Plan continue antibiotics per ID Reglan for gastroparesis. Routine G-tube site ,no leakage of formula,or even ascites fluid wound care nurse has not seen pt. continue present care paracentesis when abdomen more distended Consultation Date/Type/Reason Admit Date/Time Sep 17, 2016 at 18:49 Type of Consultation: ID 24 HR Interval Summary Constitutional: no complaints Exam/Review of Systems Vital Signs Vitals Vital Signs Date Time Temp Pulse Resp B/P Pulse Ox O2 Delivery O2 Flow Rate FiO2 10/28/16 08:23 92 10/28/16 07:05 98.4 23 113/51 99 10/28/16 04:48 40 Intake and Output 10/27/16 10/27/16 10/28/16 15:00 23:00 07:00 Intake Total 500 ml 705 ml Output Total 1500 ml Balance -1000 ml 705 ml Exam Constitutional: alert, oriented, well developed Psych: nl mood/affect, no complaints Head: atraumatic, normocephalic Eyes: EOMI, PERRL, nl conjunctiva, nl lids, nl sclera ENMT: nl external ears & nose, nl lips & teeth, nl nasal mucosa & septum Neck: non-tender, supple Respiratory: clear to auscultation, normal air movement Cardiovascular: nl pulses, regular rate and rhythm Gastrointestinal: nl liver, spleen, non-tender, soft Musculoskeletal: nl extremities to inspection, nl gait and stance Extremities: normal pulses 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, nl mental status, nl speech, nl strength Skin: nl turgor, No rash or lesions Lymph: nl lymph nodes Results Result Diagram: 10/27/16 0555 10/27/1655 Medications Medications Current Medications Levetiracetam/ Dextrose (Keppra Iv/D5W) 105 ml @ 420 mls/hr Q12 IVPB Last administered on 10/28/16at 09:29; Admin Dose 420 MLS/HR; Start 09/18/16 at 09: 00 Collagenase (Santyl) 1 applic DAILY TOP Last administered on 10/28/16 09:30; Admin Dose 1 APPLIC; Start 09/18/16 at 09:00 Acetaminophen (Tylenol Liquid) 650 mg Q4H PRN NGT PAIN AND OR ELEVATED TEMP Last administered on 09/29/16 12:07; Admin Dose 650 MG; Start 09/18/16 at 08: 00 Bisacodyl (Dulcolax Supp) 10 mg DAILY PRN [place] CONSTIPATION; Start 09/18/16 at 08:00 Mupirocin (Bactroban) Apply to bilateral nares ... BID TOP Last administered on 10/28/16 09:30; Admin Dose 1 APPLIC; Start 09/18/16 at 09:00 Mirtazapine (Remeron) 7.5 mg HS GTB Last administered on 10/27/16at 20:59; Admin Dose 7.5 MG; Start 09/18/16 at 21:00 Ondansetron HCl (Zofran Inj) 4 mg Q4H PRN IV NAUSEA AND/OR VOMITING; Start 08/24 at 08:00 Morphine Sulfate (morphine) 2 mg Q3H PRN IV PAIN LEVEL 6-10 Last administered on 09/28/16at 12:25; Admin Dose 2 MG; Start 09/18/16 at 08:00 Lorazepam (Ativan) 0.5 mg Q3H PRN IV ANXIETY; Start 09/18/16 at 08:00 IV Flush (NS 10 ml) 10 ml PRN PRN IV IV PROTOCOL Last administered on at 06:01; Admin Dose 10 ML; Start 09/18/16 at 13:00 Lansoprazole (Prevacid) 30 mg DAILY@06 PO Last administered on 10/28/16at 05:49 ; Admin Dose 30 MG; Start 09/27/16 at 06:00 Apixaban (Eliquis) 2.5 mg BID GTB Last administered on 10/28/16 09:30; Admin Dose 2.5 MG; Start 09/30/16 at 09:00; Status Future hold Metoclopramide HCl (Reglan) 5 mg Q6 IV Last administered on 10/28/16 05:49; Admin Dose 5 MG; Start 09/30/16 at 12:00 Sildenafil Citrate (Revatio) 20 mg TID GTB Last administered on 10/28/16 09: 30; Admin Dose 20 MG; Start 10/08/16 at 10:45 Pramoxine HCl 1 applic 1 applic TID DE Last administered on 10/28/16 09:30; Admin Dose 1 APPLIC; Start 10/10/16 at 21:00 Vancomycin HCl/ Sodium Chloride (Vancocin/NS) 250 ml @ 83.333 mls/ hr Q96H IVPB Last administered on 10/26/16 14:47; Admin Dose 83.333 MLS/HR; Start at 14:00 ANNABEL CISSE MD Oct 28, 2016 10:57
[2016-10-28 11:49] LABS: BASOPHIL # 0.1 10^3/ul (0.0-0.1); BASOPHILS % 0.6 % (0.0-2.0); EOSINOPHILS % 0.5 % (0.0-7.0); HEMATOCRIT 25.3 % (37.0-47.0); HEMOGLOBIN 8.2 g/dl (12.0-16.0); LYMPHOCYTES # 1.5 10^3/ul (0.8-2.9); LYMPHOCYTES % 17.1 % (15.0-51.0); MEAN CORPUSCULAR HEMOGLOBIN 32.5 pg (29.0-33.0); MEAN CORPUSCULAR HGB CONC 32.4 g/dl (32.0-37.0); MEAN CORPUSCULAR VOLUME 100.3 fl (82.0-101.0); MEAN PLATELET VOLUME 7.4 fl (7.4-10.4); MONOCYTE # 0.9 10^3/ul (0.3-0.9); MONOCYTES % 11.1 % (0.0-11.0); NEUTROPHILS % 70.7 % (39.0-77.0); PLATELET COUNT 247 10^3/UL (140-440); RED BLOOD COUNT 2.52 10^6/ul (4.20-5.40); RED CELL DISTRIBUTION WIDTH 21.5 % (11.5-14.5); UNCORRECTED WBC 8.5 10^3/ul (4.8-10.8); WHITE BLOOD COUNT 8.5 10^3/ul (4.8-10.8)
[2016-10-28 11:56] LABS: CONDITION 1; LH ANALYZER COMMENTS 1
[2016-10-28 11:58] LABS: POTASSIUM 4.4 mmol/L (3.5-5.1)
[2016-10-28 12:00] LABS: CREATININE 1.32 mg/dl (0.44-1.00)
[2016-10-28 12:01] LABS: PHOSPHORUS 3.1 mg/dl (2.5-4.9)
--- NOTE | 2016-10-28 14:48 | CONS ---
Date/Time of Note Date/Time of Note DATE: 10/28/16 TIME: 14:35 Consult Date/Type/Reason Admit Date/Time Sep 17, 2016 at 18:49 Type of Consultation: ID Subjective no events, no fevers, looks comfortable Objective Vital Signs Date Time Temp Pulse Resp B/P Pulse Ox O2 Delivery O2 Flow Rate FiO2 10/28/16 12:20 85 10/28/16 11:25 16 96 40 10/28/16 11:14 98.9 112/56 Intake and Output 10/27/16 10/27/16 10/28/16 15:00 23:00 07:00 Intake Total 500 ml 705 ml Output Total 1500 ml Balance -1000 ml 705 ml Results/Medications Result Diagram: 10/28/16 1107 10/28/16 1107 Results 24 hrs Laboratory Tests Test 10/28/16 11:07 Anion Gap 7 L Basophils # 0.1 Basophils % 0.6 Blood Morphology Comment Blood Urea Nitrogen 36 #H Calcium Level 8.0 L Carbon Dioxide Level 33 H Chloride Level 91 L Creatinine 1.32 H Eosinophils # 0.0 Eosinophils % 0.5 Glucose Level 100 Hematocrit 25.3 L Hemoglobin 8.2 L Lymphocytes # 1.5 Lymphocytes % 17.1 Magnesium Level 2.0 Mean Corpuscular Hemoglobin 32.5 Mean Corpuscular Hemoglobin Concent 32.4 Mean Corpuscular Volume 100.3 Mean Platelet Volume 7.4 Monocytes # 0.9 Monocytes % 11.1 H Neutrophils # 6.0 Neutrophils % 70.7 Nucleated Red Blood Cells # 0.0 Nucleated Red Blood Cells % 0.0 Phosphorus Level 3.1 Platelet Count 247 Potassium Level 4.4 Red Blood Count 2.52 L Red Cell Distribution Width 21.5 H Sodium Level 127 L White Blood Count 8.5 Medications Current Medications Levetiracetam/ Dextrose (Keppra Iv/D5W) 105 ml @ 420 mls/hr Q12 IVPB Last administered on 10/28/16at 09:29; Admin Dose 420 MLS/HR; Start 09/18/16 at 09: 00 Collagenase (Santyl) 1 applic DAILY TOP Last administered on 10/28/16at 09:30; Admin Dose 1 APPLIC; Start 09/18/16 at 09:00 Acetaminophen (Tylenol Liquid) 650 mg Q4H PRN NGT PAIN AND OR ELEVATED TEMP Last administered on 09/29/16 12:07; Admin Dose 650 MG; Start 09/18/16 at 08: 00 Bisacodyl (Dulcolax Supp) 10 mg DAILY PRN [place] CONSTIPATION; Start 09/18/16 at 08:00 Mupirocin (Bactroban) Apply to bilateral nares ... BID TOP Last administered on 10/28/16 09:30; Admin Dose 1 APPLIC; Start 09/18/16 at 09:00 Mirtazapine (Remeron) 7.5 mg HS GTB Last administered on 10/27/16 20:59; Admin Dose 7.5 MG; Start 09/18/16 at 21:00 Ondansetron HCl (Zofran Inj) 4 mg Q4H PRN IV NAUSEA AND/OR VOMITING; Start 08/24 at 08:00 Morphine Sulfate (morphine) 2 mg Q3H PRN IV PAIN LEVEL 6-10 Last administered on 09/28/16 12:25; Admin Dose 2 MG; Start 09/18/16 at 08:00 Lorazepam (Ativan) 0.5 mg Q3H PRN IV ANXIETY; Start 09/18/16 at 08:00 IV Flush (NS 10 ml) 10 ml PRN PRN IV IV PROTOCOL Last administered on 06:01; Admin Dose 10 ML; Start 09/18/16 at 13:00 Lansoprazole (Prevacid) 30 mg DAILY@06 PO Last administered on 10/28/16 05:49 ; Admin Dose 30 MG; Start 09/27/16 at 06:00 Apixaban (Eliquis) 2.5 mg BID GTB Last administered on 10/28/16 09:30; Admin Dose 2.5 MG; Start 09/30/16 at 09:00; Status Future hold Metoclopramide HCl (Reglan) 5 mg Q6 IV Last administered on 10/28/16 12:08; Admin Dose 5 MG; Start 09/30/16 at 12:00 Sildenafil Citrate (Revatio) 20 mg TID GTB Last administered on 10/28/16 12: 08; Admin Dose 20 MG; Start 10/08/16 at 10:45 Pramoxine HCl 1 applic 1 applic TID SD Last administered on 10/28/16 12:08; Admin Dose 1 APPLIC; Start 10/10/16 at 21:00 Vancomycin HCl/ Sodium Chloride (Vancocin/NS) 250 ml @ 83.333 mls/ hr Q96H IVPB Last administered on 10/26/16at 14:47; Admin Dose 83.333 MLS/HR; Start at 14:00 Assessment/Plan Chief Complaint/Hosp Course INDWELLING: trach, PEG, RIJ Perm-A-Cath Micro: 10/21 Bld cx + Staph species Abx: Vanco PHYSICAL EXAMINATION: GENERAL: Fragile, chronically ill-appearing, elderly woman who is lying comfortably in bed. HEENT: Head atraumatic, normocephalic. Sclerae anicteric. Buccal mucosa dry. NECK: Supple. Tracheostomy present. CHEST: Rise symmetrical. Breath sounds diminished to bases. HEART: S1, S2. ABDOMEN: Soft, bowel tones present. EXTREMITIES: Without cyanosis. ASSESSMENT: 1. Status post septic shock shock. 2. GPC septicemia===> PICC dc'd 2. S/p healthcare-associated pneumonia with parapneumonic pleural effusion and sputum culture growing multi-drug resistant Pseudomonas aeruginosa. 3. Methicillin-resistant Staphylococcus aureus infected decubitus. 4. S/p joe glabrata urinary tract infection. 5. Methicillin-resistant Staphylococcus aureus nares colonization. 6. End-stage renal disease, hemodialysis dependent. 7. History of cerebrovascular accident. 8. Recurrent ascites==> s/p paracentesis 09/24, 10/14 9. ALLERGY TO PENICILLIN AND SULFA. PLAN: Clinically unchanged, no fevers, continue Vanco, f/u repeat bld cx's VINAY RN Problems: RAISSA ROA NP Oct 28, 2016 14:48
--- NOTE | 2016-10-28 15:37 | PN ---
DATE: 10/28/2016 CARDIOLOGY FOLLOWUP Discussed with the staff. Rhythm strip was reviewed. Patient in atrial fibrillation. Heart under good control. Status post tracheostomy and sedated on the vent. No reported chest pain or pressure . MEDICATIONS: Reviewed. PHYSICAL EXAMINATION: VITAL SIGNS: Temperature 98.4, heart rate of 86, blood pressure 113/51, respiration rate of 23, sat urating 99%. HEENT: Normocephalic, atraumatic. Pupils are equal. NECK: Status post trach. GENERAL: Cachectic female. CARDIOVASCULAR: Irregularly irregular. PULMONARY: With no wheezes heard anteriorly. GASTROINTESTINAL: Soft, nontender. EXTREMITIES: No significant edema. NEUROLOGIC: Awake, responds appropriately. PSYCHIATRIC: Appears to be calm but depressed mood. ASSESSMENT AND PLAN: 1. Hypoxemia with respiratory failure, status post tracheostomy, vent dependent. 2. Atrial fibrillation on chronic anticoagulation, heart rate controlled. 3. Renal failure on dialysis. 4. History of pulmonary hypertension and possible atrial septal defect (ASD). 6. Anemia, status post transfusion. 7. Status post sepsis and pneumonia, and shock, currently blood pressure has stabilized. 8. Dysphagia, status post percutaneous endoscopic gastrostomy placement. RECOMMENDATIONS: We will continue with the current cardiac care. Will monitor on telemetry. Hemod ialysis as per Renal will be continued. Respiratory care and vent support will be continued as well . Dictated By: AMANDA LARA/ARNOLDO Conf#: [id number] DID#: [id number] CC: RUDDY GEE DO;*EndCC*
--- NOTE | 2016-10-28 17:01 | CONS ---
Date/Time of Note Date/Time of Note DATE: 10/28/16 TIME: 17:00 Consult Date/Type/Reason Admit Date/Time Sep 17, 2016 at 18:49 Type of Consultation: Pulm Subjective Comfortable no new events. Objective Vital Signs Date Time Temp Pulse Resp B/P Pulse Ox O2 Delivery O2 Flow Rate FiO2 10/28/16 14:53 98.3 75 24 133/86 98 10/28/16 11:25 40 Intake and Output 10/27/16 10/27/16 10/28/16 14:59 22:59 06:59 Intake Total 1205 ml Output Total 1500 ml Balance -295 ml GENERAL: Chronically ill-appearing lady on mechanical ventilation comfortable at rest VITAL SIGNS: per chart NECK: Supple. No JVD or lymphadenopathy. CARDIAC EXAM: S1, S2. No added sounds or murmurs. CHEST: clear bilaterally, No added sounds, rales or wheezes ABDOMEN: Soft, nontender. No guarding or rebound. Moderate distention EXTREMITIES: No cyanosis, clubbing edema +2 NEUROLOGIC: Generalized weakness. Results/Medications Result Diagram: 10/28/16 1107 10/28/16 1107 Results 24 hrs Laboratory Tests Test 10/28/16 11:07 Anion Gap 7 L Basophils # 0.1 Basophils % 0.6 Blood Morphology Comment Blood Urea Nitrogen 36 #H Calcium Level 8.0 L Carbon Dioxide Level 33 H Chloride Level 91 L Creatinine 1.32 H Eosinophils # 0.0 Eosinophils % 0.5 Glucose Level 100 Hematocrit 25.3 L Hemoglobin 8.2 L Lymphocytes # 1.5 Lymphocytes % 17.1 Magnesium Level 2.0 Mean Corpuscular Hemoglobin 32.5 Mean Corpuscular Hemoglobin Concent 32.4 Mean Corpuscular Volume 100.3 Mean Platelet Volume 7.4 Monocytes # 0.9 Monocytes % 11.1 H Neutrophils # 6.0 Neutrophils % 70.7 Nucleated Red Blood Cells # 0.0 Nucleated Red Blood Cells % 0.0 Phosphorus Level 3.1 Platelet Count 247 Potassium Level 4.4 Red Blood Count 2.52 L Red Cell Distribution Width 21.5 H Sodium Level 127 L White Blood Count 8.5 Medications Current Medications Levetiracetam/ Dextrose (Keppra Iv/D5W) 105 ml @ 420 mls/hr Q12 IVPB Last administered on 10/28/16at 09:29; Admin Dose 420 MLS/HR; Start 09/18/16 at 09: 00 Collagenase (Santyl) 1 applic DAILY TOP Last administered on 10/28/16at 09:30; Admin Dose 1 APPLIC; Start 09/18/16 at 09:00 Acetaminophen (Tylenol Liquid) 650 mg Q4H PRN NGT PAIN AND OR ELEVATED TEMP Last administered on 09/29/16at 12:07; Admin Dose 650 MG; Start 09/18/16 at 08: 00 Bisacodyl (Dulcolax Supp) 10 mg DAILY PRN [place] CONSTIPATION; Start 09/18/16 at 08:00 Mupirocin (Bactroban) Apply to bilateral nares ... BID TOP Last administered on 10/28/16 09:30; Admin Dose 1 APPLIC; Start 09/18/16 at 09:00 Mirtazapine (Remeron) 7.5 mg HS GTB Last administered on 10/27/16at 20:59; Admin Dose 7.5 MG; Start 09/18/16 at 21:00 Ondansetron HCl (Zofran Inj) 4 mg Q4H PRN IV NAUSEA AND/OR VOMITING; Start 08/24 at 08:00 Morphine Sulfate (morphine) 2 mg Q3H PRN IV PAIN LEVEL 6-10 Last administered on 09/28/16at 12:25; Admin Dose 2 MG; Start 09/18/16 at 08:00 Lorazepam (Ativan) 0.5 mg Q3H PRN IV ANXIETY; Start 09/18/16 at 08:00 IV Flush (NS 10 ml) 10 ml PRN PRN IV IV PROTOCOL Last administered on at 06:01; Admin Dose 10 ML; Start 09/18/16 at 13:00 Lansoprazole (Prevacid) 30 mg DAILY@06 PO Last administered on 10/28/16at 05:49 ; Admin Dose 30 MG; Start 09/27/16 at 06:00 Apixaban (Eliquis) 2.5 mg BID GTB Last administered on 10/28/16at 09:30; Admin Dose 2.5 MG; Start 09/30/16 at 09:00; Status Future hold Metoclopramide HCl (Reglan) 5 mg Q6 IV Last administered on 10/28/16at 16:45; Admin Dose 5 MG; Start 09/30/16 at 12:00 Sildenafil Citrate (Revatio) 20 mg TID GTB Last administered on 10/28/16at 12: 08; Admin Dose 20 MG; Start 10/08/16 at 10:45 Pramoxine HCl 1 applic 1 applic TID DE Last administered on 10/28/16at 12:08; Admin Dose 1 APPLIC; Start 10/10/16 at 21:00 Vancomycin HCl/ Sodium Chloride (Vancocin/NS) 250 ml @ 83.333 mls/ hr Q96H IVPB Last administered on 10/26/16at 14:47; Admin Dose 83.333 MLS/HR; Start at 14:00 Assessment/Plan Chief Complaint/Hosp Course IMPRESSION AND PLAN: 1. Ventilator-dependent respiratory failure. 2. Status post septic shock. 3. Polymicrobial sepsis. Now normal white blood cell count 4. End-stage renal failure on hemodialysis. 5. G tube malfunction / leak PLAN: 1. Continue vent support. 2. Continue ID recommendations. Consider de-escalation of antibiotics 3. Continue wound care. 4. Continue DVT and GI prophylaxis. 5. GI recs Discharge planning. Problems: JULIA HERNANDEZ MD, [facility] Oct 28, 2016 17:01
[2016-10-28] MEDS: MIRTAZAPINE 15 MG TAB GTB SCH (22:25)
[2016-10-29] VITALS (34 sets, daily range): BP systolic 85–120; BP diastolic 44–66; PULSE 80–100; RESP 12–19
[2016-10-29] MEDS: IPRATROPIUM (HFA) 12.9 GM INHALER INH SCH ×6 (01:02→20:19)
[2016-10-29] MEDS: LEVALBUTEROL (HFA) 15 GM INHALER INH SCH ×6 (01:02→20:19)
[2016-10-29] MEDS: LANSOPRAZOLE 30 MG CAP PO SCH (05:18)
[2016-10-29] MEDS: METOCLOPRAMIDE 10 MG INJ IV SCH ×3 (05:19→17:34)
[2016-10-29] MEDS: MUPIROCIN 2% 22 GM OINT TOP SCH ×2 (08:34→20:24)
[2016-10-29] MEDS: SILDENAFIL 20 MG TAB GTB SCH ×3 (08:34→20:23)
[2016-10-29] MEDS: APIXABAN 5 MG TABLET GTB SCH ×2 (08:34→20:23)
[2016-10-29] MEDS: PRAMOXINE 1% 15 GM RECT FOAM PR SCH ×3 (08:34→20:23)
[2016-10-29] MEDS: LEVETIRACETAM IV 500 MG in DEXTROSE 5% 100 ML IVPB SCH ×2 (08:35→20:22)
[2016-10-29] MEDS: BUDESONIDE (NEB) 0.5MG/2ML AMP HHN SCH ×2 (09:00→20:49)
[2016-10-29] MEDS: COLLAGENASE 30 GM TUBE TOP SCH (09:00)
--- NOTE | 2016-10-29 09:14 | PN ---
DATE: 10/29/2016 SUBJECTIVE: The patient is stable, no acute events overnight. No fevers, chills, nausea, vomiting, no shortness of breath. OBJECTIVE: VITAL SIGNS: Blood pressure 110/55, respirations 12, pulse 85, temperature 98.3. HEENT: Head is normocephalic. NECK: Supple. HEART: Regular rate. LUNGS: Show diminished breath sounds at the base. ABDOMEN: Soft, nontender to palpation. No rebound or guarding. EXTREMITIES: Negative for clubbing, cyanosis. No edema. DERMATOLOGIC: No rashes. MUSCULOSKELETAL: No joint effusions. NEUROLOGIC: No change in exam. MEDICATIONS: The patient's medications have been reviewed. LABORATORY DATA: Showed sodium 127, potassium 4, chloride 91, BUN 36, creatinine 1.32. White count is 8.5, hemoglobin 9.2, hematocrit 25.3, and platelet count is 247. ASSESSMENT AND PLAN: 1. Sepsis secondary to pneumonia, decubitus wound, underlying infection. The patient's PICC line h as been removed. The patient is tolerating antibiotics. Repeat cultures have been negative. The p atient's white count has normalized. We will continue to monitor. 2. End-stage renal disease. The patient is scheduled for dialysis today for 3 for on a 3 K bath, s odium bath 140. 3. Hyponatremia, etiology secondary to end-stage renal disease. The patient's free water flushes h ave been discontinued. Continue dialysis and 140 sodium bath. 4. Abdominal ascites secondary to congestive heart failure and end-stage renal disease. Will leena nue ultrafiltration dialysis. The patient has been receiving intermittent paracentesis. Will monit or closely. 5. Pulmonary hypertension. Continue sildenafil. 6. Decubitus wound. Continue wound care. 7. Anemia. Continue to monitor hemoglobin and hematocrit levels. Will continue Epogen. 8. Seizure disorder. Continue Keppra. 9. Dysphagia status post percutaneous endoscopic gastrostomy. Continue tube feeding. 10. Ventilator-dependent respiratory failure. Vent settings have been reviewed. ABG has been revi ewed. Continue to monitor. 11. Atrial fibrillation, rate controlled. Continue medical management. 12. Encephalopathy. No change. 13. Gastrointestinal and deep venous thrombosis prophylaxis. Continue Eliquis. DISPOSITION: The patient is pending replacement once a bed is available. Dictated By: RUDDY GEE DO NR/ARNOLDO Conf#: [id number] DID#: [id number]
--- NOTE | 2016-10-29 11:26 | CONS ---
Date/Time of Note Date/Time of Note DATE: 10/29/16 TIME: 11:25 Consult Date/Type/Reason Admit Date/Time Sep 17, 2016 at 18:49 Type of Consultation: Pulm Subjective Comfortable No new events. Objective Vital Signs Date Time Temp Pulse Resp B/P Pulse Ox O2 Delivery O2 Flow Rate FiO2 10/29/16 11:23 87 10/29/16 09:13 15 96 40 10/29/16 07:14 98.1 120/62 Intake and Output 10/28/16 10/28/16 10/29/16 15:00 23:00 07:00 Intake Total 700 ml 955 ml 600 ml Balance 700 ml 955 ml 600 ml GENERAL: Chronically ill-appearing lady on mechanical ventilation comfortable at rest VITAL SIGNS: per chart NECK: Supple. No JVD or lymphadenopathy. CARDIAC EXAM: S1, S2. No added sounds or murmurs. CHEST: clear bilaterally, No added sounds, rales or wheezes ABDOMEN: Soft, nontender. No guarding or rebound. Moderate distention EXTREMITIES: No cyanosis, clubbing edema +2 NEUROLOGIC: Generalized weakness. Results/Medications Result Diagram: 10/28/16 1107 10/28/16 1107 Medications Current Medications Levetiracetam/ Dextrose (Keppra Iv/D5W) 105 ml @ 420 mls/hr Q12 IVPB Last administered on 10/29/16at 08:35; Admin Dose 420 MLS/HR; Start 09/18/16 at 09: 00 Collagenase (Santyl) 1 applic DAILY TOP Last administered on 10/28/16at 09:30; Admin Dose 1 APPLIC; Start 09/18/16 at 09:00 Acetaminophen (Tylenol Liquid) 650 mg Q4H PRN NGT PAIN AND OR ELEVATED TEMP Last administered on 09/29/16at 12:07; Admin Dose 650 MG; Start 09/18/16 at 08: 00 Bisacodyl (Dulcolax Supp) 10 mg DAILY PRN [place] CONSTIPATION; Start 09/18/16 at 08:00 Mupirocin (Bactroban) Apply to bilateral nares ... BID TOP Last administered on 10/29/16at 08:34; Admin Dose 1 APPLIC; Start 09/18/16 at 09:00 Mirtazapine (Remeron) 7.5 mg HS GTB Last administered on 10/28/16 22:25; Admin Dose 7.5 MG; Start 09/18/16 at 21:00 Ondansetron HCl (Zofran Inj) 4 mg Q4H PRN IV NAUSEA AND/OR VOMITING; Start 08/24 at 08:00 Morphine Sulfate (morphine) 2 mg Q3H PRN IV PAIN LEVEL 6-10 Last administered on 09/28/16 12:25; Admin Dose 2 MG; Start 09/18/16 at 08:00 Lorazepam (Ativan) 0.5 mg Q3H PRN IV ANXIETY; Start 09/18/16 at 08:00 IV Flush (NS 10 ml) 10 ml PRN PRN IV IV PROTOCOL Last administered on 06:01; Admin Dose 10 ML; Start 09/18/16 at 13:00 Lansoprazole (Prevacid) 30 mg DAILY@06 PO Last administered on 10/29/16 05:18 ; Admin Dose 30 MG; Start 09/27/16 at 06:00 Apixaban (Eliquis) 2.5 mg BID GTB Last administered on 10/29/16at 08:34; Admin Dose 2.5 MG; Start 09/30/16 at 09:00; Status Future hold Metoclopramide HCl (Reglan) 5 mg Q6 IV Last administered on 10/29/16 05:19; Admin Dose 5 MG; Start 09/30/16 at 12:00 Sildenafil Citrate (Revatio) 20 mg TID GTB Last administered on 10/29/16 08: 34; Admin Dose 20 MG; Start 10/08/16 at 10:45 Pramoxine HCl 1 applic 1 applic TID [place] Last administered on 10/29/16at 08:34; Admin Dose 1 APPLIC; Start 10/10/16 at 21:00 Vancomycin HCl/ Sodium Chloride (Vancocin/NS) 250 ml @ 83.333 mls/ hr Q96H IVPB Last administered on 10/26/16at 14:47; Admin Dose 83.333 MLS/HR; Start at 14:00 Assessment/Plan Chief Complaint/Hosp Course IMPRESSION AND PLAN: 1. Ventilator-dependent respiratory failure. 2. Status post septic shock. 3. Polymicrobial sepsis. Now normal white blood cell count 4. End-stage renal failure on hemodialysis. 5. G tube malfunction / leak PLAN: 1. Continue vent support. 2. Continue ID recommendations. Consider de-escalation of antibiotics 3. Continue wound care. 4. Continue DVT and GI prophylaxis. 5. GI recs Discharge planning. Problems: JULIA HERNANDEZ MD, [facility] Oct 29, 2016 11:26
--- NOTE | 2016-10-29 12:22 | CONS ---
Date/Time of Note Date/Time of Note DATE: 10/29/16 TIME: Consult Date/Type/Reason Admit Date/Time Sep 17, 2016 at 18:49 Type of Consultation: ID Subjective no events, nad Objective Vital Signs Date Time Temp Pulse Resp B/P Pulse Ox O2 Delivery O2 Flow Rate FiO2 10/29/16 12:17 85 10/29/16 11:45 97.8 18 97/52 99 10/29/16 09:13 40 Intake and Output 10/28/16 10/28/16 10/29/16 14:59 22:59 06:59 Intake Total 700 ml 955 ml 600 ml Balance 700 ml 955 ml 600 ml Results/Medications Result Diagram: 10/28/16 1107 10/28/16 1107 Medications Current Medications Levetiracetam/ Dextrose (Keppra Iv/D5W) 105 ml @ 420 mls/hr Q12 IVPB Last administered on 10/29/16at 08:35; Admin Dose 420 MLS/HR; Start 09/18/16 at 09: 00 Collagenase (Santyl) 1 applic DAILY TOP Last administered on 10/28/16at 09:30; Admin Dose 1 APPLIC; Start 09/18/16 at 09:00 Acetaminophen (Tylenol Liquid) 650 mg Q4H PRN NGT PAIN AND OR ELEVATED TEMP Last administered on 09/29/16at 12:07; Admin Dose 650 MG; Start 09/18/16 at 08: 00 Bisacodyl (Dulcolax Supp) 10 mg DAILY PRN [place] CONSTIPATION; Start 09/18/16 at 08:00 Mupirocin (Bactroban) Apply to bilateral nares ... BID TOP Last administered on 10/29/16at 08:34; Admin Dose 1 APPLIC; Start 09/18/16 at 09:00 Mirtazapine (Remeron) 7.5 mg HS GTB Last administered on 10/28/16at 22:25; Admin Dose 7.5 MG; Start 09/18/16 at 21:00 Ondansetron HCl (Zofran Inj) 4 mg Q4H PRN IV NAUSEA AND/OR VOMITING; Start 08/24 at 08:00 Morphine Sulfate (morphine) 2 mg Q3H PRN IV PAIN LEVEL 6-10 Last administered on 09/28/16at 12:25; Admin Dose 2 MG; Start 09/18/16 at 08:00 Lorazepam (Ativan) 0.5 mg Q3H PRN IV ANXIETY; Start 09/18/16 at 08:00 IV Flush (NS 10 ml) 10 ml PRN PRN IV IV PROTOCOL Last administered on at 06:01; Admin Dose 10 ML; Start 09/18/16 at 13:00 Lansoprazole (Prevacid) 30 mg DAILY@06 PO Last administered on 10/29/16at 05:18 ; Admin Dose 30 MG; Start 09/27/16 at 06:00 Apixaban (Eliquis) 2.5 mg BID GTB Last administered on 10/29/16at 08:34; Admin Dose 2.5 MG; Start 09/30/16 at 09:00; Status Future hold Metoclopramide HCl (Reglan) 5 mg Q6 IV Last administered on 10/29/16at 05:19; Admin Dose 5 MG; Start 09/30/16 at 12:00 Sildenafil Citrate (Revatio) 20 mg TID GTB Last administered on 10/29/16at 08: 34; Admin Dose 20 MG; Start 10/08/16 at 10:45 Pramoxine HCl 1 applic 1 applic TID [place] Last administered on 10/29/16at 08:34; Admin Dose 1 APPLIC; Start 10/10/16 at 21:00 Vancomycin HCl/ Sodium Chloride (Vancocin/NS) 250 ml @ 83.333 mls/ hr Q96H IVPB Last administered on 10/26/16at 14:47; Admin Dose 83.333 MLS/HR; Start at 14:00 Assessment/Plan Chief Complaint/Hosp Course INDWELLING: trach, PEG, RIJ Perm-A-Cath Micro: 10/21 Bld cx + Staph species Abx: Vanco PHYSICAL EXAMINATION: GENERAL: Fragile, chronically ill-appearing, elderly woman who is lying comfortably in bed. HEENT: Head atraumatic, normocephalic. Sclerae anicteric. Buccal mucosa dry. NECK: Supple. Tracheostomy present. CHEST: Rise symmetrical. Breath sounds diminished to bases. HEART: S1, S2. ABDOMEN: Soft, bowel tones present. EXTREMITIES: Without cyanosis. ASSESSMENT: 1. Status post septic shock shock. 2. GPC septicemia===> PICC dc'd 2. S/p healthcare-associated pneumonia with parapneumonic pleural effusion and sputum culture growing multi-drug resistant Pseudomonas aeruginosa. 3. Methicillin-resistant Staphylococcus aureus infected decubitus. 4. S/p joe glabrata urinary tract infection. 5. Methicillin-resistant Staphylococcus aureus nares colonization. 6. End-stage renal disease, hemodialysis dependent. 7. History of cerebrovascular accident. 8. Recurrent ascites==> s/p paracentesis 09/24, 10/14 9. ALLERGY TO PENICILLIN AND SULFA. PLAN: Clinically unchanged, no fevers, repeat bld cx negative, continue Vanco for 10 more days VINAY RN Problems: RAISSA ROA NP Oct 29, 2016 12:22
--- NOTE | 2016-10-29 12:55 | PN ---
DATE: 10/29/2016 CARDIOLOGY FOLLOWUP SUBJECTIVE: Discussed with the staff as well as patient. The patient with no chest pain or pressur e, status post tracheostomy, just not feeling well. MEDICATIONS: Reviewed as per medical reconciliation, personally reviewed. PHYSICAL EXAMINATION: VITAL SIGNS: Temperature 98.1, heart rate of 85, blood pressure 120/62, respiration rate of 18, sat urating 99%. HEENT: Normocephalic, atraumatic. Thin, cachectic female. Status post tracheostomy, on the vent. CARDIOVASCULAR: Irregularly irregular, systolic murmur. PULMONARY: With mild rhonchi. GASTROINTESTINAL: Soft, status post PEG placement. No rebound or guarding. EXTREMITIES: Positive lower extremity edema. NEUROLOGIC: Awake, responds appropriately. PSYCHIATRIC: Appears to be calm but depressed but pleasant mood. LABORATORY: WBC of 8.5, hemoglobin 8.2, platelets 247. Sodium 127, potassium 4.4, BUN of 36, creat inine 1.32, glucose 100. ASSESSMENT AND PLAN: 1. Hypoxemic respiratory failure, status post tracheostomy, vent dependent. 2. Status post sepsis and pneumonia, currently improved. 3. Renal failure on dialysis. 4. Atrial fibrillation, chronic, on anticoagulation. 5. Pulmonary hypertension and possible ASD. 6. Hyponatremia. 7. Dysphagia. RECOMMENDATIONS: We will continue with the supportive care. Continue with the coronary care will be continued. Vent support will be continued and anticoagulation as tolerated will be continu ed. Hemodialysis as per Renal. Dictated By: AMANDA PINTO MD AV/ARNOLDO Conf#: [id number] DID#: [id number] CC: RUDDY GEE DO;*EndCC*
[2016-10-29] MEDS: EPOETIN 10000 UNITS/1 ML INJ (ESRD) SC SCH (17:22)
--- NOTE | 2016-10-29 18:25 | CONS ---
Date/Time of Note Date/Time of Note DATE: 10/29/16 TIME: 18:24 Assessment/Plan Assessment/Plan Additional Assessment/Plan ASSESSMENT: 1. Renal failure on dialysis. 2. Vent dependent respiratory failure. 3. Chronic obstructive pulmonary disease. 4. Atrial fibrillation. 5. Ascites, successful paracentesis done. 6. Dysphagia 7. G-tube clean,no leakage,tolerating feeding 8. Anemia: stable, likely from anemia of chronic disease 9. Status post septic shock. 10. Diabetes mellitus. 11. Decubitus ulcer. 12. Congestive heart failure. 13. Seizure disorder. 14. pneumonia,s/p sepsis 15.pulmonary hypertension 16 persistent leucocytosis,better 17.pressure ulcer g tube site Plan continue antibiotics per ID Reglan for gastroparesis. G-tube site ,no leakage of formula,or even ascites fluid wound care nurse has not seen pt. continue present care paracentesis when abdomen more distended Consultation Date/Type/Reason Admit Date/Time Sep 17, 2016 at 18:49 Type of Consultation: ID [id number] HR Interval Summary Constitutional: no complaints Exam/Review of Systems Vital Signs Vitals Vital Signs Date Time Temp Pulse Resp B/P Pulse Ox O2 Delivery O2 Flow Rate FiO2 10/29/16 17:25 86 16 97 40 10/29/16 15:18 97.9 109/66 Intake and Output 10/28/16 10/28/16 10/29/16 15:00 23:00 07:00 Intake Total 700 ml 955 ml 600 ml Balance 700 ml 955 ml 600 ml Exam Constitutional: alert, oriented, well developed Psych: nl mood/affect, no complaints Head: atraumatic, normocephalic Eyes: EOMI, PERRL, nl conjunctiva, nl lids, nl sclera ENMT: nl external ears & nose, nl lips & teeth, nl nasal mucosa & septum Neck: non-tender, supple Respiratory: clear to auscultation, normal air movement Cardiovascular: nl pulses, regular rate and rhythm Gastrointestinal: nl liver, spleen, non-tender, soft Musculoskeletal: nl extremities to inspection, nl gait and stance Extremities: normal pulses Neurological: DIRECTOR OF MANUFACTURING II-XII intact, nl mental status, nl speech, nl strength Skin: nl turgor, No rash or lesions Lymph: nl lymph nodes Results Result Diagram: 10/28/16 1107 10/28/16 1107 Medications Medications Current Medications Levetiracetam/ Dextrose (Keppra Iv/D5W) 105 ml @ 420 mls/hr Q12 IVPB Last administered on 10/29/16at 08:35; Admin Dose 420 MLS/HR; Start 09/18/16 at 09: 00 Collagenase (Santyl) 1 applic DAILY TOP Last administered on 10/29/16at 09:00; Admin Dose 1 APPLIC; Start 09/18/16 at 09:00 Acetaminophen (Tylenol Liquid) 650 mg Q4H PRN NGT PAIN AND OR ELEVATED TEMP Last administered on 09/29/16at 12:07; Admin Dose 650 MG; Start 09/18/16 at 08: 00 Bisacodyl (Dulcolax Supp) 10 mg DAILY PRN [place] CONSTIPATION; Start 09/18/16 at 08:00 Mupirocin (Bactroban) Apply to bilateral nares ... BID TOP Last administered on 10/29/16at 08:34; Admin Dose 1 APPLIC; Start 09/18/16 at 09:00 Mirtazapine (Remeron) 7.5 mg HS GTB Last administered on 10/28/16at 22:25; Admin Dose 7.5 MG; Start 09/18/16 at 21:00 Ondansetron HCl (Zofran Inj) 4 mg Q4H PRN IV NAUSEA AND/OR VOMITING; Start 08/24 at 08:00 Morphine Sulfate (morphine) 2 mg Q3H PRN IV PAIN LEVEL 6-10 Last administered on 09/28/16at 12:25; Admin Dose 2 MG; Start 09/18/16 at 08:00 Lorazepam (Ativan) 0.5 mg Q3H PRN IV ANXIETY; Start 09/18/16 at 08:00 IV Flush (NS 10 ml) 10 ml PRN PRN IV IV PROTOCOL Last administered on at 06:01; Admin Dose 10 ML; Start 09/18/16 at 13:00 Lansoprazole (Prevacid) 30 mg DAILY@06 PO Last administered on 10/29/16at 05:18 ; Admin Dose 30 MG; Start 09/27/16 at 06:00 Apixaban (Eliquis) 2.5 mg BID GTB Last administered on 10/29/16at 08:34; Admin Dose 2.5 MG; Start 09/30/16 at 09:00; Status Future hold Metoclopramide HCl (Reglan) 5 mg Q6 IV Last administered on 10/29/16at 17:34; Admin Dose 5 MG; Start 09/30/16 at 12:00 Sildenafil Citrate (Revatio) 20 mg TID GTB Last administered on 10/29/16at 08: 34; Admin Dose 20 MG; Start 10/08/16 at 10:45 Pramoxine HCl 1 applic 1 applic TID [place] Last administered on 10/29/16at 13:09; Admin Dose 1 APPLIC; Start 10/10/16 at 21:00 Vancomycin HCl/ Sodium Chloride (Vancocin/NS) 250 ml @ 83.333 mls/ hr Q96H IVPB Last administered on 10/26/16at 14:47; Admin Dose 83.333 MLS/HR; Start at 14:00 ANNABEL CISSE MD Oct 29, 2016 18:25
[2016-10-29] MEDS: MIRTAZAPINE 15 MG TAB GTB SCH (20:23)
[2016-10-30] VITALS (23 sets, daily range): BP systolic 102–125; BP diastolic 51–68; PULSE 85–96; RESP 13–20
[2016-10-30] MEDS: METOCLOPRAMIDE 10 MG INJ IV SCH ×4 (00:26→17:33)
[2016-10-30] MEDS: IPRATROPIUM (HFA) 12.9 GM INHALER INH SCH ×6 (01:35→20:08)
[2016-10-30] MEDS: LEVALBUTEROL (HFA) 15 GM INHALER INH SCH ×6 (01:35→20:08)
[2016-10-30] MEDS: LANSOPRAZOLE 30 MG CAP PO SCH (05:50)
[2016-10-30 08:11] LABS: POTASSIUM 3.7 mmol/L (3.5-5.1)
[2016-10-30 08:14] LABS: CREATININE 1.25 mg/dl (0.44-1.00)
[2016-10-30 08:15] LABS: PHOSPHORUS 3.3 mg/dl (2.5-4.9)
[2016-10-30] MEDS: BUDESONIDE (NEB) 0.5MG/2ML AMP HHN SCH ×2 (08:51→20:08)
[2016-10-30] MEDS: COLLAGENASE 30 GM TUBE TOP SCH (09:45)
[2016-10-30] MEDS: SILDENAFIL 20 MG TAB GTB SCH ×3 (09:46→20:54)
[2016-10-30] MEDS: APIXABAN 5 MG TABLET GTB SCH ×2 (09:46→20:54)
[2016-10-30] MEDS: MUPIROCIN 2% 22 GM OINT TOP SCH ×2 (09:46→20:55)
[2016-10-30] MEDS: PRAMOXINE 1% 15 GM RECT FOAM PR SCH ×4 (09:47→22:51)
[2016-10-30] MEDS: LEVETIRACETAM IV 500 MG in DEXTROSE 5% 100 ML IVPB SCH ×2 (09:52→20:55)
--- NOTE | 2016-10-30 10:18 | PN ---
DATE: 10/30/2016 CARDIOLOGY FOLLOWUP SUBJECTIVE: Discussed with the staff. Rhythm strip was reviewed. The patient remains in atrial fi brillation. Heart overall is under good control. The patient denies any pain to me. Discussed wit h the son, discussed with the staff. MEDICATIONS: Reviewed. PHYSICAL EXAMINATION: VITAL SIGNS: Temperature 98.8, heart rate 92, blood pressure 105/51, respiration rate of 20, satura ting 97%. HEENT: Normocephalic, atraumatic. Pupils are equal. NECK: Status post tracheostomy, on the vent. GENERAL: Cachectic, thin female. CARDIOVASCULAR: Irregularly irregular, systolic murmur. PULMONARY: With mild diffuse rhonchi. GASTROINTESTINAL: Soft. No rebound or guarding. Status post PEG placement. EXTREMITIES: Positive lower extremity edema. NEUROLOGIC: Awake and alert. PSYCHIATRIC: Calm, pleasant, but depressed mood. ASSESSMENT AND PLAN: 1. Hypoxemic respiratory failure, status post tracheostomy, vent dependent. 2. Pulmonary hypertension, possible ASD. 3. Renal failure on dialysis. 4. Atrial fibrillation, chronic anticoagulation, heart rate control. 5. Electrolyte abnormalities with hyponatremia. 6. Dysphagia, status post PEG placement. RECOMMENDATIONS: We will continue with supportive care. Hemodialysis will be continued and managed as per renal as scheduled. Vent support will be continued. Antibiotic is managed as per ID. Hear t rate is currently under control. Eliquis will be continued as tolerated. Dictated By: AMANDA LARA/ARNOLDO Conf#: [id number] DID#: [id number] CC: RUDDY GEE DO;*End*
--- NOTE | 2016-10-30 11:50 | PN ---
DATE: 10/30/2016 SUBJECTIVE: The patient is stable, no acute events overnight. No fevers, chills, nausea, vomiting. The patient had hemodialysis yesterday, tolerated it well with 1 L removed. OBJECTIVE: VITAL SIGNS: Blood pressure 105/51, respirations 20, pulse 92, temperature 98.1. HEENT: Head is normocephalic. NECK: Shows trach. HEART: Regular rate. LUNGS: Show diminished breath sounds at the base. ABDOMEN: Soft, nontender to palpation. No rebound or guarding. Positive PEG. EXTREMITIES: Negative for clubbing, cyanosis, no edema. DERMATOLOGIC: No rashes. MUSCULOSKELETAL: Positive decubitus wound. NEUROLOGIC: No change in exam. MEDICATIONS: The patient's medications have been reviewed. LABORATORY DATA: Shows sodium 131, potassium 3.7, chloride 94, BUN 37, creatinine 1.25. ASSESSMENT AND PLAN: 1. Sepsis secondary to pneumonia, decubitus wound. The patient is currently on antibiotics. [place] green course. We will continue. 2. End-stage renal disease. Continue hemodialysis. Plan for dialysis tomorrow. 3. Hyponatremia secondary to end-stage renal disease. Continue to limit free water flushes, dialys is on a 140 sodium bath. 4. Abdominal ascites secondary to congestive heart failure to end-stage renal disease. Continue ul trafiltration dialysis. Will give intermittent paracentesis as needed. 5. Pulmonary hypertension. Will continue sildenafil. 6. Decubitus wound. Continue wound care. 7. Anemia. Continue to monitor hemoglobin and hematocrit levels. Continue Epogen. 8. Seizure disorder. Continue Keppra. 9. Dysphagia status post PEG. Continue tube feeding. 10. respiratory failure. Vent settings have been reviewed. ABG is reviewed. 11. Atrial fibrillation, rate controlled. Continue medical management. 12. Encephalopathy. No change. 13. Gastrointestinal and deep venous thrombosis prophylaxis. Continue proton pump inhibitor and El iquis. 14. Disposition. The patient is pending transfer to a subacute facility once a bed is available. Dictated By: RUDDY BUSTILLOS/ARNOLDO Conf#: [id number] DID#: [id number]
[2016-10-30] MEDS: VANCOMYCIN 1.25 GM in SOD CHLORIDE 0.9% 250 ML IVPB SCH (14:04)
[2016-10-30] MEDS: HYDROCORTISONE 1% 28 GM CR TOP SCH ×2 (17:33→22:51)
--- NOTE | 2016-10-30 18:32 | CONS ---
Date/Time of Note Date/Time of Note DATE: 10/30/16 TIME: 18:32 Consult Date/Type/Reason Admit Date/Time Sep 17, 2016 at 18:49 Type of Consultation: ID Subjective no events, no fevers, lying comfortably in bed Objective Vital Signs Date Time Temp Pulse Resp B/P Pulse Ox O2 Delivery O2 Flow Rate FiO2 10/30/16 17:00 121 15 95 40 10/30/16 15:04 98.6 125/68 Intake and Output 10/29/16 10/29/16 10/30/16 15:00 23:00 07:00 Intake Total 500 ml 705 ml 610 ml Output Total 1500 ml Balance -1000 ml 705 ml 610 ml Results/Medications Result Diagram: 10/28/16 1107 10/30/16 0619 Results 24 hrs Laboratory Tests Test 10/30/16 06:19 Anion Gap 9 Blood Urea Nitrogen 37 H Calcium Level 8.0 L Carbon Dioxide Level 32 H Chloride Level 94 L Creatinine 1.25 H Glucose Level 89 Magnesium Level 2.0 Phosphorus Level 3.3 Potassium Level 3.7 Sodium Level 131 L Medications Current Medications Levetiracetam/ Dextrose (Keppra Iv/D5W) 105 ml @ 420 mls/hr Q12 IVPB Last administered on 10/30/16at 09:52; Admin Dose 420 MLS/HR; Start 09/18/16 at 09: 00 Collagenase (Santyl) 1 applic DAILY TOP Last administered on 10/30/16at 09:45; Admin Dose 1 APPLIC; Start 09/18/16 at 09:00 Acetaminophen (Tylenol Liquid) 650 mg Q4H PRN NGT PAIN AND OR ELEVATED TEMP Last administered on 09/29/16at 12:07; Admin Dose 650 MG; Start 09/18/16 at 08: 00 Bisacodyl (Dulcolax Supp) 10 mg DAILY PRN [place] CONSTIPATION; Start 09/18/16 at 08:00 Mupirocin (Bactroban) Apply to bilateral nares ... BID TOP Last administered on 10/30/16at 09:46; Admin Dose 1 APPLIC; Start 09/18/16 at 09:00 Mirtazapine (Remeron) 7.5 mg HS GTB Last administered on 10/29/16at 20:23; Admin Dose 7.5 MG; Start 09/18/16 at 21:00 Ondansetron HCl (Zofran Inj) 4 mg Q4H PRN IV NAUSEA AND/OR VOMITING; Start 08/24 at 08:00 Morphine Sulfate (morphine) 2 mg Q3H PRN IV PAIN LEVEL 6-10 Last administered on 09/28/16at 12:25; Admin Dose 2 MG; Start 09/18/16 at 08:00 Lorazepam (Ativan) 0.5 mg Q3H PRN IV ANXIETY; Start 09/18/16 at 08:00 IV Flush (NS 10 ml) 10 ml PRN PRN IV IV PROTOCOL Last administered on 06:01; Admin Dose 10 ML; Start 09/18/16 at 13:00 Lansoprazole (Prevacid) 30 mg DAILY@06 PO Last administered on 10/30/16 05:50 ; Admin Dose 30 MG; Start 09/27/16 at 06:00 Apixaban (Eliquis) 2.5 mg BID GTB Last administered on 10/30/16 09:46; Admin Dose 2.5 MG; Start 09/30/16 at 09:00; Status Future hold Metoclopramide HCl (Reglan) 5 mg Q6 IV Last administered on 10/30/16 17:33; Admin Dose 5 MG; Start 09/30/16 at 12:00 Sildenafil Citrate (Revatio) 20 mg TID GTB Last administered on 10/30/16 12: 25; Admin Dose 20 MG; Start 10/08/16 at 10:45 Pramoxine HCl 1 applic 1 applic TID [place] Last administered on 10/30/16at 12:26; Admin Dose 1 APPLIC; Start 10/10/16 at 21:00 Vancomycin HCl/ Sodium Chloride (Vancocin/NS) 250 ml @ 83.333 mls/ hr Q96H IVPB Last administered on 10/30/16 14:04; Admin Dose 83.333 MLS/HR; Start at 14:00 Hydrocortisone (Hydrocortisone 1% Cr) 1 applic BID TOP Last administered on 17:33; Admin Dose 1 APPLIC; Start 10/30/16 at 15:30 Diphenhydramine HCl (Benadryl) 25 mg Q8H PRN PO ITCHING; Start 10/30/16 at 15: 00 Assessment/Plan Chief Complaint/Hosp Course INDWELLING: trach, PEG, RIJ Perm-A-Cath Micro: 10/21 Bld cx + Staph species Abx: Vanco PHYSICAL EXAMINATION: GENERAL: Fragile, chronically ill-appearing, elderly woman who is lying comfortably in bed. HEENT: Head atraumatic, normocephalic. Sclerae anicteric. Buccal mucosa dry. NECK: Supple. Tracheostomy present. CHEST: Rise symmetrical. Breath sounds diminished to bases. HEART: S1, S2. ABDOMEN: Soft, bowel tones present. EXTREMITIES: Without cyanosis. ASSESSMENT: 1. Status post septic shock shock. 2. GPC septicemia===> PICC dc'd 2. S/p healthcare-associated pneumonia with parapneumonic pleural effusion and sputum culture growing multi-drug resistant Pseudomonas aeruginosa. 3. Methicillin-resistant Staphylococcus aureus infected decubitus. 4. S/p joe glabrata urinary tract infection. 5. Methicillin-resistant Staphylococcus aureus nares colonization. 6. End-stage renal disease, hemodialysis dependent. 7. History of cerebrovascular accident. 8. Recurrent ascites==> s/p paracentesis 09/24, 10/14 9. ALLERGY TO PENICILLIN AND SULFA. PLAN: Clinically unchanged, no fevers, repeat bld cx negative, continue Vanco for 9 more days VINAY RN Problems: RAISSA ROA NP Oct 30, 2016 18:32
--- NOTE | 2016-10-30 19:40 | CONS ---
Date/Time of Note Date/Time of Note DATE: 10/30/16 TIME: 19:39 Assessment/Plan Assessment/Plan Additional Assessment/Plan Additional Assessment/Plan ASSESSMENT: 1. Renal failure on dialysis. 2. Vent dependent respiratory failure. 3. Chronic obstructive pulmonary disease. 4. Atrial fibrillation. 5. Ascites, successful paracentesis done. 6. Dysphagia 7. G-tube clean,no leakage,tolerating feeding 8. Anemia: stable, likely from anemia of chronic disease 9. Status post septic shock. 10. Diabetes mellitus. 11. Decubitus ulcer. 12. Congestive heart failure. 13. Seizure disorder. 14. pneumonia,s/p sepsis 15.pulmonary hypertension 16 persistent leucocytosis,better 17.pressure ulcer g tube site,healed Plan continue antibiotics per ID Reglan for gastroparesis. G-tube site ,no leakage of formula,or even ascites fluid continue present care paracentesis when abdomen more distended Consultation Date/Type/Reason Admit Date/Time Sep 17, 2016 at 18:49 Type of Consultation: ID 24 HR Interval Summary Constitutional: no complaints Exam/Review of Systems Vital Signs Vitals Vital Signs Date Time Temp Pulse Resp B/P Pulse Ox O2 Delivery O2 Flow Rate FiO2 10/30/16 17:00 121 15 95 40 10/30/16 15:04 98.6 125/68 Intake and Output 10/29/16 10/29/16 10/30/16 15:00 23:00 07:00 Intake Total 500 ml 705 ml 610 ml Output Total 1500 ml Balance -1000 ml 705 ml 610 ml Exam Constitutional: alert, oriented, well developed Psych: nl mood/affect, no complaints Head: atraumatic, normocephalic Eyes: EOMI, PERRL, nl conjunctiva, nl lids, nl sclera ENMT: nl external ears & nose, nl lips & teeth, nl nasal mucosa & septum Neck: non-tender, supple Respiratory: clear to auscultation, normal air movement Cardiovascular: nl pulses, regular rate and rhythm Gastrointestinal: nl liver, spleen, non-tender, soft Musculoskeletal: nl extremities to inspection, nl gait and stance Extremities: normal pulses Neurological: CURER ACID DRUM II-XII intact, nl mental status, nl speech, nl strength Skin: nl turgor, No rash or lesions Lymph: nl lymph nodes Results Result Diagram: 10/28/16 1107 10/30/16 0619 Results 24 hrs Laboratory Tests Test 10/30/16 06:19 Anion Gap 9 Blood Urea Nitrogen 37 H Calcium Level 8.0 L Carbon Dioxide Level 32 H Chloride Level 94 L Creatinine 1.25 H Glucose Level 89 Magnesium Level 2.0 Phosphorus Level 3.3 Potassium Level 3.7 Sodium Level 131 L Medications Medications Current Medications Levetiracetam/ Dextrose (Keppra Iv/D5W) 105 ml @ 420 mls/hr Q12 IVPB Last administered on 10/30/16at 09:52; Admin Dose 420 MLS/HR; Start 09/18/16 at 09: 00 Collagenase (Santyl) 1 applic DAILY TOP Last administered on 10/30/16at 09:45; Admin Dose 1 APPLIC; Start 09/18/16 at 09:00 Acetaminophen (Tylenol Liquid) 650 mg Q4H PRN NGT PAIN AND OR ELEVATED TEMP Last administered on 09/29/16at 12:07; Admin Dose 650 MG; Start 09/18/16 at 08: 00 Bisacodyl (Dulcolax Supp) 10 mg DAILY PRN [place] CONSTIPATION; Start 09/18/16 at 08:00 Mupirocin (Bactroban) Apply to bilateral nares ... BID TOP Last administered on 10/30/16at 09:46; Admin Dose 1 APPLIC; Start 09/18/16 at 09:00 Mirtazapine (Remeron) 7.5 mg HS GTB Last administered on 10/29/16at 20:23; Admin Dose 7.5 MG; Start 09/18/16 at 21:00 Ondansetron HCl (Zofran Inj) 4 mg Q4H PRN IV NAUSEA AND/OR VOMITING; Start 08/24 at 08:00 Morphine Sulfate (morphine) 2 mg Q3H PRN IV PAIN LEVEL 6-10 Last administered on 09/28/16at 12:25; Admin Dose 2 MG; Start 09/18/16 at 08:00 Lorazepam (Ativan) 0.5 mg Q3H PRN IV ANXIETY; Start 09/18/16 at 08:00 IV Flush (NS 10 ml) 10 ml PRN PRN IV IV PROTOCOL Last administered on at 06:01; Admin Dose 10 ML; Start 09/18/16 at 13:00 Lansoprazole (Prevacid) 30 mg DAILY@06 PO Last administered on 10/30/16 05:50 ; Admin Dose 30 MG; Start 09/27/16 at 06:00 Apixaban (Eliquis) 2.5 mg BID GTB Last administered on 10/30/16 09:46; Admin Dose 2.5 MG; Start 09/30/16 at 09:00; Status Future hold Metoclopramide HCl (Reglan) 5 mg Q6 IV Last administered on 10/30/16 17:33; Admin Dose 5 MG; Start 09/30/16 at 12:00 Sildenafil Citrate (Revatio) 20 mg TID GTB Last administered on 10/30/16 12: 25; Admin Dose 20 MG; Start 10/08/16 at 10:45 Pramoxine HCl 1 applic 1 applic TID [place] Last administered on 10/30/16 12:26; Admin Dose 1 APPLIC; Start 10/10/16 at 21:00 Vancomycin HCl/ Sodium Chloride (Vancocin/NS) 250 ml @ 83.333 mls/ hr Q96H IVPB Last administered on 10/30/16 14:04; Admin Dose 83.333 MLS/HR; Start at 14:00 Hydrocortisone (Hydrocortisone 1% Cr) 1 applic BID TOP Last administered on 17:33; Admin Dose 1 APPLIC; Start 10/30/16 at 15:30 Diphenhydramine HCl (Benadryl) 25 mg Q8H PRN PO ITCHING; Start 10/30/16 at 15: 00 ANNABEL CISSE MD Oct 30, 2016 19:40
[2016-10-30] MEDS: MIRTAZAPINE 15 MG TAB GTB SCH (20:55)
[2016-10-31] VITALS (31 sets, daily range): BP systolic 94–127; BP diastolic 38–63; PULSE 10–107; RESP 14–22
[2016-10-31] MEDS: METOCLOPRAMIDE 10 MG INJ IV SCH ×4 (00:28→18:08)
[2016-10-31] MEDS: PRAMOXINE 1% 15 GM RECT FOAM PR SCH ×4 (00:29→21:38)
[2016-10-31] MEDS: LEVALBUTEROL (HFA) 15 GM INHALER INH SCH ×6 (01:11→21:00)
[2016-10-31] MEDS: IPRATROPIUM (HFA) 12.9 GM INHALER INH SCH ×6 (01:11→21:01)
[2016-10-31] MEDS: LANSOPRAZOLE 30 MG CAP PO SCH (05:52)
[2016-10-31 07:39] LABS: POTASSIUM 4.6 mmol/L (3.5-5.1)
[2016-10-31 07:41] LABS: CREATININE 1.45 mg/dl (0.44-1.00)
[2016-10-31 07:42] LABS: CALCIUM 8.2 mg/dl (8.4-10.2)
[2016-10-31] MEDS: HYDROCORTISONE 1% 28 GM CR TOP SCH ×2 (09:00→21:38)
[2016-10-31] MEDS: BUDESONIDE (NEB) 0.5MG/2ML AMP HHN SCH ×2 (09:00→19:25)
[2016-10-31] MEDS: LEVETIRACETAM IV 500 MG in DEXTROSE 5% 100 ML IVPB SCH ×2 (09:22→21:37)
[2016-10-31] MEDS: MUPIROCIN 2% 22 GM OINT TOP SCH ×2 (09:23→21:38)
[2016-10-31] MEDS: COLLAGENASE 30 GM TUBE TOP SCH (09:23)
[2016-10-31] MEDS: SILDENAFIL 20 MG TAB GTB SCH ×3 (09:24→21:37)
[2016-10-31] MEDS: APIXABAN 5 MG TABLET GTB SCH ×2 (09:24→21:36)
--- NOTE | 2016-10-31 09:41 | PN ---
DATE: 10/31/2016 Still SUBJECTIVE: The patient is stable, no acute events overnight. No fevers, chills, nausea, vom iting. No shortness of breath. OBJECTIVE: VITAL SIGNS: Blood pressure 105/55, respirations 17, pulse 73, temperature 99.4. HEENT: Head is normocephalic. NECK: Supple. HEART: Regular rate. LUNGS: Show diminished breath sounds at the base. ABDOMEN: Soft, nontender to palpation. No rebound or guarding. EXTREMITIES: Negative for clubbing, cyanosis. No edema. DERMATOLOGIC: No rashes. MUSCULOSKELETAL: No joint effusions. NEUROLOGIC: No change in exam. MEDICATIONS: The patient's medications have been reviewed. LABORATORY DATA: Sodium 131, potassium 4.6, chloride 93, BUN 47, creatinine 1.45. ASSESSMENT AND PLAN: 1. Sepsis secondary to acute pneumonia, decubitus wound. The patient is currently on antibiotics, finishing course. 2. End-stage renal disease. Continue hemodialysis. Plan for dialysis today. 3. Hyponatremia secondary to end-stage renal disease. Continue to limit free water flushes. [facility] on a 140 sodium bath. 4. Abdominal ascites secondary to congestive heart failure, end-stage renal disease. Continue ultr afiltration dialysis, intermittent paracentesis as needed. 5. Pulmonary hypertension. Continue sildenafil. 6. Decubitus wound. Continue wound care. 7. Anemia. Continue to monitor hemoglobin and hematocrit levels. Continue Epogen. 8. Seizure disorder. Continue Keppra. 9. History of dysphagia, status post PEG. Continue tube feeding. 10. Ventilator dependent respiratory failure. Vent settings have been reviewed. Continue to monit or. Follow up with pulmonary. 11. Atrial fibrillation, rate controlled. Continue current medical management. 12. Encephalopathy. No change. 13. Gastrointestinal and deep venous thrombosis prophylaxis. Continue proton pump inhibitor and [place] iquis. DISPOSITION: The patient is pending transfer to subacute facility once a bed is available. Dictated By: RUDDY BUSTILLOS/ARNOLDO Conf#: [id number] DID#: [id number]
[2016-10-31] MEDS: ALBUMIN HUMAN 25% 100 ML IV PRN (11:12)
--- NOTE | 2016-10-31 12:51 | PN ---
DATE: 10/31/2016 CARDIOLOGY FOLLOWUP SUBJECTIVE: Discussed with the staff. Rhythm strip was reviewed. The patient remains in atrial fi brillation. Heart rate is overall under good control. Discussed with the son at bedside. The patie nt denies any chest pain or pressure to me. She said that she feels "okay". MEDICATIONS: Reviewed. PHYSICAL EXAMINATION: VITAL SIGNS: Temperature 99.4, heart rate of 95, blood pressure 105/55, respiration 16, saturating 96%. HEENT: Normocephalic, atraumatic. Elderly female. Status post tracheostomy on the vent. Pupils a re equal and round. CARDIOVASCULAR: Irregularly irregular. Systolic murmur. PULMONARY: Mild diffuse rhonchi. GASTROINTESTINAL: Soft, nontender. Status post PEG placement. EXTREMITIES: Positive lower extremity edema. NEUROLOGIC: Awake, alert. Responds appropriately. LABORATORY: Sodium 131, potassium 4.6, BUN of 47, creatinine 1.45, glucose 105. ASSESSMENT AND PLAN: 1. Hypoxemia respiratory failure, status post tracheostomy, vent dependent. 2. Renal failure on dialysis. 3. History of pulmonary hypertension, possible ASD. 4. Atrial fibrillation, anticoagulation, chronic, heart rate control. 5. Dysphagia, status post percutaneous endoscopic gastrostomy placement. 6. Status post sepsis and shock. RECOMMENDATIONS: Antibiotic is managed as per ID recommendations. We will continue with the dialys is as per Dr. Reddy and associate. Fluid management and free water as per renal recommendations. Heart rate is currently under control. Continue with the current cardiac care and we will monitor. Anticoagulation as tolerated will be continued. Dictated By: AMANDA LARA/ARNOLDO Conf#: [id number] DID#: [id number] CC: RUDDY REDDY DO;*EndCC*
--- NOTE | 2016-10-31 15:13 | CONS ---
Date/Time of Note Date/Time of Note DATE: 10/31/16 TIME: 15:12 Assessment/Plan Assessment/Plan Additional Assessment/Plan ASSESSMENT: 1. Renal failure on dialysis. 2. Vent dependent respiratory failure. 3. Chronic obstructive pulmonary disease. 4. Atrial fibrillation. 5. Ascites, successful paracentesis done. 6. Dysphagia 7. G-tube clean,no leakage,tolerating feeding 8. Anemia: stable, likely from anemia of chronic disease 9. Status post septic shock. 10. Diabetes mellitus. 11. Decubitus ulcer. 12. Congestive heart failure. 13. Seizure disorder. 14. pneumonia,s/p sepsis 15.pulmonary hypertension 16 persistent leucocytosis,better 17.pressure ulcer g tube site,healed Plan continue antibiotics per ID Reglan for gastroparesis. G-tube site ,no leakage of formula,or even ascites fluid continue present care discussed with family Consultation Date/Type/Reason Admit Date/Time Sep 17, 2016 at 18:49 Type of Consultation: ID 24 HR Interval Summary Constitutional: no complaints Exam/Review of Systems Vital Signs Vitals Vital Signs Date Time Temp Pulse Resp B/P Pulse Ox O2 Delivery O2 Flow Rate FiO2 10/31/16 13:40 108 20 4 40 10/31/16 11:33 98.4 94/44 Intake and Output 10/30/16 10/30/16 10/31/16 15:00 23:00 07:00 Intake Total 755 ml 600 ml Balance 755 ml 600 ml Exam Constitutional: alert, oriented, well developed Psych: nl mood/affect, no complaints Head: atraumatic, normocephalic Eyes: EOMI, PERRL, nl conjunctiva, nl lids, nl sclera ENMT: nl external ears & nose, nl lips & teeth, nl nasal mucosa & septum Neck: non-tender, supple Respiratory: clear to auscultation, normal air movement Cardiovascular: nl pulses, regular rate and rhythm Gastrointestinal: nl liver, spleen, non-tender, soft Musculoskeletal: nl extremities to inspection, nl gait and stance Extremities: normal pulses Neurological: QUENCHING MACHINE OPERATOR II-XII intact, nl mental status, nl speech, nl strength Skin: nl turgor, No rash or lesions Lymph: nl lymph nodes Results Result Diagram: 10/28/16 1107 10/31/16 0640 Results 24 hrs Laboratory Tests Test 10/31/16 06:40 Anion Gap 12 Blood Urea Nitrogen 47 H Calcium Level 8.2 L Carbon Dioxide Level 31 Chloride Level 93 L Creatinine 1.45 H Glucose Level 105 Potassium Level 4.6 Sodium Level 131 L Medications Medications Current Medications Levetiracetam/ Dextrose (Keppra Iv/D5W) 105 ml @ 420 mls/hr Q12 IVPB Last administered on 10/31/16 09:22; Admin Dose 420 MLS/HR; Start 09/18/16 at 09: 00 Collagenase (Santyl) 1 applic DAILY TOP Last administered on 10/31/16 09:23; Admin Dose 1 APPLIC; Start 09/18/16 at 09:00 Acetaminophen (Tylenol Liquid) 650 mg Q4H PRN NGT PAIN AND OR ELEVATED TEMP Last administered on 09/29/16at 12:07; Admin Dose 650 MG; Start 09/18/16 at 08: 00 Bisacodyl (Dulcolax Supp) 10 mg DAILY PRN [place] CONSTIPATION; Start 09/18/16 at 08:00 Mupirocin (Bactroban) Apply to bilateral nares ... BID TOP Last administered on 10/31/16 09:23; Admin Dose 1 APPLIC; Start 09/18/16 at 09:00 Mirtazapine (Remeron) 7.5 mg HS GTB Last administered on 10/30/16at 20:55; Admin Dose 7.5 MG; Start 09/18/16 at 21:00 Ondansetron HCl (Zofran Inj) 4 mg Q4H PRN IV NAUSEA AND/OR VOMITING; Start 08/24 at 08:00 Morphine Sulfate (morphine) 2 mg Q3H PRN IV PAIN LEVEL 6-10 Last administered on 09/28/16at 12:25; Admin Dose 2 MG; Start 09/18/16 at 08:00 Lorazepam (Ativan) 0.5 mg Q3H PRN IV ANXIETY; Start 09/18/16 at 08:00 IV Flush (NS 10 ml) 10 ml PRN PRN IV IV PROTOCOL Last administered on at 06:01; Admin Dose 10 ML; Start 09/18/16 at 13:00 Lansoprazole (Prevacid) 30 mg DAILY@06 PO Last administered on 10/31/16 05:52 ; Admin Dose 30 MG; Start 09/27/16 at 06:00 Apixaban (Eliquis) 2.5 mg BID GTB Last administered on 10/31/16 09:24; Admin Dose 2.5 MG; Start 09/30/16 at 09:00; Status Future hold Metoclopramide HCl (Reglan) 5 mg Q6 IV Last administered on 10/31/16 12:32; Admin Dose 5 MG; Start 09/30/16 at 12:00 Sildenafil Citrate (Revatio) 20 mg TID GTB Last administered on 10/31/16at 09: 24; Admin Dose 20 MG; Start 10/08/16 at 10:45 Pramoxine HCl 1 applic 1 applic TID [place] Last administered on 10/31/16at 09:23; Admin Dose 1 APPLIC; Start 10/10/16 at 21:00 Vancomycin HCl/ Sodium Chloride (Vancocin/NS) 250 ml @ 83.333 mls/ hr Q96H IVPB Last administered on 10/30/16at 14:04; Admin Dose 83.333 MLS/HR; Start at 14:00 Hydrocortisone (Hydrocortisone 1% Cr) 1 applic BID TOP Last administered on at 17:33; Admin Dose 1 APPLIC; Start 10/30/16 at 15:30 Diphenhydramine HCl (Benadryl) 25 mg Q8H PRN PO ITCHING; Start 10/30/16 at 15: 00 ANNABEL CISSE MD Oct 31, 2016 15:13
[2016-10-31] MEDS: EPOETIN 10000 UNITS/1 ML INJ (ESRD) SC SCH (15:38)
--- NOTE | 2016-10-31 16:04 | CONS ---
Date/Time of Note Date/Time of Note DATE: 10/31/16 TIME: 16:03 Consult Date/Type/Reason Admit Date/Time Sep 17, 2016 at 18:49 Type of Consultation: ID Subjective no events per report, lying comfortably in bed, no fevers Objective Vital Signs Date Time Temp Pulse Resp B/P Pulse Ox O2 Delivery O2 Flow Rate FiO2 10/31/16 15:56 40 10/31/16 15:42 98.5 108 22 111/53 99 Intake and Output 10/30/16 10/30/16 10/31/16 15:00 23:00 07:00 Intake Total 755 ml 600 ml Balance 755 ml 600 ml Results/Medications Result Diagram: 10/28/16 1107 10/31/16 0640 Results 24 hrs Laboratory Tests Test 10/31/16 06:40 Anion Gap 12 Blood Urea Nitrogen 47 H Calcium Level 8.2 L Carbon Dioxide Level 31 Chloride Level 93 L Creatinine 1.45 H Glucose Level 105 Potassium Level 4.6 Sodium Level 131 L Medications Current Medications Levetiracetam/ Dextrose (Keppra Iv/D5W) 105 ml @ 420 mls/hr Q12 IVPB Last administered on 10/31/16at 09:22; Admin Dose 420 MLS/HR; Start 09/18/16 at 09: 00 Collagenase (Santyl) 1 applic DAILY TOP Last administered on 10/31/16at 09:23; Admin Dose 1 APPLIC; Start 09/18/16 at 09:00 Acetaminophen (Tylenol Liquid) 650 mg Q4H PRN NGT PAIN AND OR ELEVATED TEMP Last administered on 09/29/16at 12:07; Admin Dose 650 MG; Start 09/18/16 at 08: 00 Bisacodyl (Dulcolax Supp) 10 mg DAILY PRN [place] CONSTIPATION; Start 09/18/16 at 08:00 Mupirocin (Bactroban) Apply to bilateral nares ... BID TOP Last administered on 10/31/16at 09:23; Admin Dose 1 APPLIC; Start 09/18/16 at 09:00 Mirtazapine (Remeron) 7.5 mg HS GTB Last administered on 10/30/16at 20:55; Admin Dose 7.5 MG; Start 09/18/16 at 21:00 Ondansetron HCl (Zofran Inj) 4 mg Q4H PRN IV NAUSEA AND/OR VOMITING; Start 08/24 at 08:00 Morphine Sulfate (morphine) 2 mg Q3H PRN IV PAIN LEVEL 6-10 Last administered on 09/28/16at 12:25; Admin Dose 2 MG; Start 09/18/16 at 08:00 Lorazepam (Ativan) 0.5 mg Q3H PRN IV ANXIETY; Start 09/18/16 at 08:00 IV Flush (NS 10 ml) 10 ml PRN PRN IV IV PROTOCOL Last administered on at 06:01; Admin Dose 10 ML; Start 09/18/16 at 13:00 Lansoprazole (Prevacid) 30 mg DAILY@06 PO Last administered on 10/31/16 05:52 ; Admin Dose 30 MG; Start 09/27/16 at 06:00 Apixaban (Eliquis) 2.5 mg BID GTB Last administered on 10/31/16 09:24; Admin Dose 2.5 MG; Start 09/30/16 at 09:00; Status Future hold Metoclopramide HCl (Reglan) 5 mg Q6 IV Last administered on 10/31/16 12:32; Admin Dose 5 MG; Start 09/30/16 at 12:00 Sildenafil Citrate (Revatio) 20 mg TID GTB Last administered on 10/31/16 09: 24; Admin Dose 20 MG; Start 10/08/16 at 10:45 Pramoxine HCl 1 applic 1 applic TID [place] Last administered on 10/31/16 09:23; Admin Dose 1 APPLIC; Start 10/10/16 at 21:00 Vancomycin HCl/ Sodium Chloride (Vancocin/NS) 250 ml @ 83.333 mls/ hr Q96H IVPB Last administered on 10/30/16at 14:04; Admin Dose 83.333 MLS/HR; Start at 14:00 Hydrocortisone (Hydrocortisone 1% Cr) 1 applic BID TOP Last administered on at 17:33; Admin Dose 1 APPLIC; Start 10/30/16 at 15:30 Diphenhydramine HCl (Benadryl) 25 mg Q8H PRN PO ITCHING; Start 10/30/16 at 15: 00 Assessment/Plan Chief Complaint/Hosp Course INDWELLING: trach, PEG, RIJ Perm-A-Cath Micro: 10/21 Bld cx + Staph species Abx: Yosvany PHYSICAL EXAMINATION: GENERAL: Fragile, chronically ill-appearing, elderly woman who is lying comfortably in bed. HEENT: Head atraumatic, normocephalic. Sclerae anicteric. Buccal mucosa dry. NECK: Supple. Tracheostomy present. CHEST: Rise symmetrical. Breath sounds diminished to bases. HEART: S1, S2. ABDOMEN: Soft, bowel tones present. EXTREMITIES: Without cyanosis. ASSESSMENT: 1. Status post septic shock shock. 2. GPC septicemia===> PICC dc'd 2. S/p healthcare-associated pneumonia with parapneumonic pleural effusion and sputum culture growing multi-drug resistant Pseudomonas aeruginosa. 3. Methicillin-resistant Staphylococcus aureus infected decubitus. 4. S/p joe glabrata urinary tract infection. 5. Methicillin-resistant Staphylococcus aureus nares colonization. 6. End-stage renal disease, hemodialysis dependent. 7. History of cerebrovascular accident. 8. Recurrent ascites==> s/p paracentesis 09/24, 10/14 9. ALLERGY TO PENICILLIN AND SULFA. PLAN: Clinically unchanged, no fevers, repeat bld cx negative, continue Yosvany MCLEAN RN Problems: RAISSA ROA NP Oct 31, 2016 16:04
[2016-10-31] MEDS: MIRTAZAPINE 15 MG TAB GTB SCH (21:36)
[2016-11-01] VITALS (23 sets, daily range): BP systolic 98–125; BP diastolic 42–59; PULSE 90–104; RESP 13–18
[2016-11-01] MEDS: METOCLOPRAMIDE 10 MG INJ IV SCH ×4 (00:44→17:54)
[2016-11-01] MEDS: IPRATROPIUM (HFA) 12.9 GM INHALER INH SCH ×6 (01:00→20:36)
[2016-11-01] MEDS: LEVALBUTEROL (HFA) 15 GM INHALER INH SCH ×6 (01:00→20:36)
[2016-11-01] MEDS: LANSOPRAZOLE 30 MG CAP PO SCH (05:28)
[2016-11-01] MEDS: BUDESONIDE (NEB) 0.5MG/2ML AMP HHN SCH ×2 (09:01→20:00)
[2016-11-01] MEDS: APIXABAN 5 MG TABLET GTB SCH ×2 (09:29→21:43)
[2016-11-01] MEDS: SILDENAFIL 20 MG TAB GTB SCH ×3 (09:29→21:51)
[2016-11-01] MEDS: LEVETIRACETAM IV 500 MG in DEXTROSE 5% 100 ML IVPB SCH ×2 (09:30→21:43)
[2016-11-01] MEDS: MUPIROCIN 2% 22 GM OINT TOP SCH ×2 (09:31→21:44)
[2016-11-01] MEDS: HYDROCORTISONE 1% 28 GM CR TOP SCH ×2 (09:32→21:44)
[2016-11-01] MEDS: COLLAGENASE 30 GM TUBE TOP SCH (09:33)
--- NOTE | 2016-11-01 10:33 | CONS ---
Date/Time of Note Date/Time of Note DATE: 11/01/16 TIME: 10:26 Consult Date/Type/Reason Admit Date/Time Sep 17, 2016 at 18:49 Type of Consultation: neph Subjective The patient is stable, no acute events overnight. No fevers, chills, nausea, vomiting. No shortness of breath. tolerated hd yesterday Objective Vital Signs Date Time Temp Pulse Resp B/P Pulse Ox O2 Delivery O2 Flow Rate FiO2 11/01/16 08:23 91 11/01/16 07:39 98.5 16 105/47 98 11/01/16 05:04 40 Intake and Output 10/31/16 10/31/16 11/01/16 15:00 23:00 07:00 Intake Total 500 ml 105 ml 600 ml Output Total 3500 ml 3000 ml Balance -3000 ml -2895 ml 600 ml HEENT: Head is normocephalic. NECK: Supple. HEART: Regular rate. LUNGS: Show diminished breath sounds at the base. ABDOMEN: Soft, nontender to palpation. No rebound or guarding. EXTREMITIES: Negative for clubbing, cyanosis. No edema. DERMATOLOGIC: No rashes. MUSCULOSKELETAL: No joint effusions. NEUROLOGIC: No change in exam. Results/Medications Result Diagram: 10/28/16 1107 10/31/16 0640 Medications Current Medications Levetiracetam/ Dextrose (Keppra Iv/D5W) 105 ml @ 420 mls/hr Q12 IVPB Last administered on 11/01/16at 09:30; Admin Dose 420 MLS/HR; Start 09/18/16 at 09: 00 Collagenase (Santyl) 1 applic DAILY TOP Last administered on 11/01/16at 09:33; Admin Dose 1 APPLIC; Start 09/18/16 at 09:00 Acetaminophen (Tylenol Liquid) 650 mg Q4H PRN NGT PAIN AND OR ELEVATED TEMP Last administered on 09/29/16at 12:07; Admin Dose 650 MG; Start 09/18/16 at 08: 00 Bisacodyl (Dulcolax Supp) 10 mg DAILY PRN [place] CONSTIPATION; Start 09/18/16 at 08:00 Mupirocin (Bactroban) Apply to bilateral nares ... BID TOP Last administered on 11/01/16at 09:31; Admin Dose 1 APPLIC; Start 09/18/16 at 09:00 Mirtazapine (Remeron) 7.5 mg HS GTB Last administered on 10/31/16 21:36; Admin Dose 7.5 MG; Start 09/18/16 at 21:00 Ondansetron HCl (Zofran Inj) 4 mg Q4H PRN IV NAUSEA AND/OR VOMITING; Start 08/24 at 08:00 Morphine Sulfate (morphine) 2 mg Q3H PRN IV PAIN LEVEL 6-10 Last administered on 09/28/16 12:25; Admin Dose 2 MG; Start 09/18/16 at 08:00 Lorazepam (Ativan) 0.5 mg Q3H PRN IV ANXIETY; Start 09/18/16 at 08:00 IV Flush (NS 10 ml) 10 ml PRN PRN IV IV PROTOCOL Last administered on 06:01; Admin Dose 10 ML; Start 09/18/16 at 13:00 Lansoprazole (Prevacid) 30 mg DAILY@06 PO Last administered on 11/01/16 05:28 ; Admin Dose 30 MG; Start 09/27/16 at 06:00 Apixaban (Eliquis) 2.5 mg BID GTB Last administered on 11/01/16 09:29; Admin Dose 2.5 MG; Start 09/30/16 at 09:00; Status Future hold Metoclopramide HCl (Reglan) 5 mg Q6 IV Last administered on 11/01/16 05:28; Admin Dose 5 MG; Start 09/30/16 at 12:00 Sildenafil Citrate (Revatio) 20 mg TID GTB Last administered on 11/01/16 09: 29; Admin Dose 20 MG; Start 10/08/16 at 10:45 Pramoxine HCl 1 applic 1 applic TID [place] Last administered on 10/31/16 21:38; Admin Dose 1 APPLIC; Start 10/10/16 at 21:00 Vancomycin HCl/ Sodium Chloride (Vancocin/NS) 250 ml @ 83.333 mls/ hr Q96H IVPB Last administered on 10/30/16 14:04; Admin Dose 83.333 MLS/HR; Start at 14:00 Hydrocortisone (Hydrocortisone 1% Cr) 1 applic BID TOP Last administered on 09:32; Admin Dose 1 APPLIC; Start 10/30/16 at 15:30 Diphenhydramine HCl (Benadryl) 25 mg Q8H PRN PO ITCHING; Start 10/30/16 at 15: 00 Assessment/Plan Chief Complaint/Hosp Course 1. Sepsis secondary to acute pneumonia, decubitus wound. The patient is currently on antibiotics, finishing course. 2. End-stage renal disease. Continue hemodialysis. Plan for dialysis thursday. 3. Hyponatremia secondary to end-stage renal disease. Continue to limit free water flushes. Continue dialysis on a 140 sodium bath. 4. Abdominal ascites secondary to congestive heart failure, end-stage renal disease. Continue ultrafiltration dialysis, intermittent paracentesis as needed. 5. Pulmonary hypertension. Continue sildenafil. 6. Decubitus wound. Continue wound care. 7. Anemia. Continue to monitor hemoglobin and hematocrit levels. Continue Epogen. 8. Seizure disorder. Continue Keppra. 9. History of dysphagia, status post PEG. Continue tube feeding. 10. Ventilator dependent respiratory failure. Vent settings have been reviewed. Continue to monitor. Follow up with pulmonary. 11. Atrial fibrillation, rate controlled. Continue current medical management. 12. Encephalopathy. No change. 13. Gastrointestinal and deep venous thrombosis prophylaxis. Continue proton pump inhibitor and Eliquis. Problems: ZEN TORO MD Nov 01, 2016 10:33
--- NOTE | 2016-11-01 11:25 | CONS ---
Date/Time of Note Date/Time of Note DATE: 11/01/16 TIME: 11:24 Assessment/Plan Assessment/Plan Additional Assessment/Plan ASSESSMENT: 1. Renal failure on dialysis. 2. Vent dependent respiratory failure. 3. Chronic obstructive pulmonary disease. 4. Atrial fibrillation. 5. Ascites, successful paracentesis done. 6. Dysphagia 7. G-tube clean,no leakage,tolerating feeding 8. Anemia: stable, likely from anemia of chronic disease 9. Status post septic shock. 10. Diabetes mellitus. 11. Decubitus ulcer. 12. Congestive heart failure. 13. Seizure disorder. 14. pneumonia,s/p sepsis 15.pulmonary hypertension 16 persistent leucocytosis,better 17.pressure ulcer g tube site,healed Plan continue antibiotics per ID Reglan for gastroparesis. G-tube site ,no leakage of formula,or even ascites fluid continue present care discussed with family no leakage also from paracentesis punctured site. Consultation Date/Type/Reason Admit Date/Time Sep 17, 2016 at 18:49 Type of Consultation: neph 24 HR Interval Summary Constitutional: no complaints Exam/Review of Systems Vital Signs Vitals Vital Signs Date Time Temp Pulse Resp B/P Pulse Ox O2 Delivery O2 Flow Rate FiO2 11/01/16 11:08 94 15 97 40 11/01/16 07:39 98.5 105/47 Intake and Output 10/31/16 10/31/16 11/01/16 14:59 22:59 06:59 Intake Total 500 ml 705 ml Output Total 3500 ml 3000 ml Balance -3000 ml -3000 ml 705 ml Exam Constitutional: alert, oriented, well developed Psych: nl mood/affect, no complaints Head: atraumatic, normocephalic Eyes: EOMI, PERRL, nl conjunctiva, nl lids, nl sclera ENMT: nl external ears & nose, nl lips & teeth, nl nasal mucosa & septum Neck: non-tender, supple Respiratory: clear to auscultation, normal air movement Cardiovascular: nl pulses, regular rate and rhythm Gastrointestinal: nl liver, spleen, non-tender, soft Musculoskeletal: nl extremities to inspection, nl gait and stance Extremities: normal pulses Neurological: PART TIME FLEXIBLE CLERK II-XII intact, nl mental status, nl speech, nl strength Skin: nl turgor, No rash or lesions Lymph: nl lymph nodes Results Result Diagram: 10/28/16 1107 10/31/16 0640 Medications Medications Current Medications Levetiracetam/ Dextrose (Keppra Iv/D5W) 105 ml @ 420 mls/hr Q12 IVPB Last administered on 11/01/16at 09:30; Admin Dose 420 MLS/HR; Start 09/18/16 at 09: 00 Collagenase (Santyl) 1 applic DAILY TOP Last administered on 11/01/16 09:33; Admin Dose 1 APPLIC; Start 09/18/16 at 09:00 Acetaminophen (Tylenol Liquid) 650 mg Q4H PRN NGT PAIN AND OR ELEVATED TEMP Last administered on 09/29/16at 12:07; Admin Dose 650 MG; Start 09/18/16 at 08: 00 Bisacodyl (Dulcolax Supp) 10 mg DAILY PRN [place] CONSTIPATION; Start 09/18/16 at 08:00 Mupirocin (Bactroban) Apply to bilateral nares ... BID TOP Last administered on 11/01/16 09:31; Admin Dose 1 APPLIC; Start 09/18/16 at 09:00 Mirtazapine (Remeron) 7.5 mg HS GTB Last administered on 10/31/16at 21:36; Admin Dose 7.5 MG; Start 09/18/16 at 21:00 Ondansetron HCl (Zofran Inj) 4 mg Q4H PRN IV NAUSEA AND/OR VOMITING; Start 08/24 at 08:00 Morphine Sulfate (morphine) 2 mg Q3H PRN IV PAIN LEVEL 6-10 Last administered on 09/28/16at 12:25; Admin Dose 2 MG; Start 09/18/16 at 08:00 Lorazepam (Ativan) 0.5 mg Q3H PRN IV ANXIETY; Start 09/18/16 at 08:00 IV Flush (NS 10 ml) 10 ml PRN PRN IV IV PROTOCOL Last administered on at 06:01; Admin Dose 10 ML; Start 09/18/16 at 13:00 Lansoprazole (Prevacid) 30 mg DAILY@06 PO Last administered on 11/01/16 05:28 ; Admin Dose 30 MG; Start 09/27/16 at 06:00 Apixaban (Eliquis) 2.5 mg BID GTB Last administered on 11/01/16at 09:29; Admin Dose 2.5 MG; Start 09/30/16 at 09:00; Status Future hold Metoclopramide HCl (Reglan) 5 mg Q6 IV Last administered on 11/01/16at 05:28; Admin Dose 5 MG; Start 09/30/16 at 12:00 Sildenafil Citrate (Revatio) 20 mg TID GTB Last administered on 11/01/16 09: 29; Admin Dose 20 MG; Start 10/08/16 at 10:45 Pramoxine HCl 1 applic 1 applic TID [place] Last administered on 10/31/16at 21:38; Admin Dose 1 APPLIC; Start 10/10/16 at 21:00 Vancomycin HCl/ Sodium Chloride (Vancocin/NS) 250 ml @ 83.333 mls/ hr Q96H IVPB Last administered on 10/30/16at 14:04; Admin Dose 83.333 MLS/HR; Start at 14:00 Hydrocortisone (Hydrocortisone 1% Cr) 1 applic BID TOP Last administered on at 09:32; Admin Dose 1 APPLIC; Start 10/30/16 at 15:30 Diphenhydramine HCl (Benadryl) 25 mg Q8H PRN PO ITCHING; Start 10/30/16 at 15: 00 ANNABEL CISSE MD Nov 01, 2016 11:25
[2016-11-01] MEDS: PRAMOXINE 1% 15 GM RECT FOAM PR SCH ×3 (13:00→21:00)
--- NOTE | 2016-11-01 20:31 | PN ---
DATE: 11/01/2016 CARDIOLOGY FOLLOWUP PROGRESS NOTE SUBJECTIVE: The patient remains in fibrillation with no chest pain or pressure. No palpitation. D enies any pain to me. MEDICATIONS: Reviewed. PHYSICAL EXAMINATION VITAL SIGNS: Temperature 98.5, heart rate of 90, blood pressure 101/44, respiration rate of 16. Tr ach on the vent 40% oxygen. HEENT: Normocephalic, atraumatic, elderly female, pupils are equal. NECK: Supple. CARDIOVASCULAR: Irregularly irregular, systolic and diastolic murmur. PULMONARY: Mild diffuse rhonchi. GASTROINTESTINAL: Soft, nontender. EXTREMITIES: Positive diffuse edema. NEUROLOGIC: Awake, responds appropriately. PSYCHIATRIC: Appears to be calm and pleasant. LABORATORY: Most recent shows sodium 133, ____ , potassium 4.6, BUN 47, creatinine 1.45. ASSESSMENT AND PLAN 1. Hypoxemic respiratory failure, status post tracheostomy, vent-dependent. 2. Atrial fibrillation, on chronic anticoagulation and heart rate control. 3. Renal failure, on dialysis. Will be continued and managed as per Renal. 4. History of hypertension, currently blood pressure controlled. 5. Anemia, currently stable, status post transfusion previously. 6. Encephalopathy, currently stable. 7. Possible atrial septal defect. We will monitor at this point. 8. Dysphagia, status post PEG placement. 9. Status post septic shock and pneumonia. RECOMMENDATIONS: Antibiotic will be managed as per ID's recommendation. Continue vent support. An ticoagulation as tolerated will be continued. We will continue to watch her. Dictated By: AMANDA PINTO MD AV/ARNOLDO Conf#: [id number] DID#: [id number] CC: RUDDY GEE DO;*EndCC*
--- NOTE | 2016-11-01 21:42 | CONS ---
Date/Time of Note Date/Time of Note DATE: 11/01/16 TIME: 21:41 Consult Date/Type/Reason Admit Date/Time Sep 17, 2016 at 13:49 Type of Consultation: ID Subjective no events, looks comfortable, no fevers, family at bedside Objective Vital Signs Date Time Temp Pulse Resp B/P Pulse Ox O2 Delivery O2 Flow Rate FiO2 11/01/16 20:54 97 11/01/16 20:40 18 95 40 11/01/16 16:16 97.8 98/42 Intake and Output 10/31/16 10/31/16 11/01/16 15:00 23:00 07:00 Intake Total 500 ml 105 ml 600 ml Output Total 3500 ml 3000 ml Balance -3000 ml -2895 ml 600 ml Results/Medications Result Diagram: 10/28/16 1107 10/31/16 0640 Medications Current Medications Levetiracetam/ Dextrose (Keppra Iv/D5W) 105 ml @ 420 mls/hr Q12 IVPB Last administered on 11/01/16at 09:30; Admin Dose 420 MLS/HR; Start 09/18/16 at 09: 00 Collagenase (Santyl) 1 applic DAILY TOP Last administered on 11/01/16at 09:33; Admin Dose 1 APPLIC; Start 09/18/16 at 09:00 Acetaminophen (Tylenol Liquid) 650 mg Q4H PRN NGT PAIN AND OR ELEVATED TEMP Last administered on 09/29/16at 12:07; Admin Dose 650 MG; Start 09/18/16 at 08: 00 Bisacodyl (Dulcolax Supp) 10 mg DAILY PRN [place] CONSTIPATION; Start 09/18/16 at 08:00 Mupirocin (Bactroban) Apply to bilateral nares ... BID TOP Last administered on 11/01/16at 09:31; Admin Dose 1 APPLIC; Start 09/18/16 at 09:00 Mirtazapine (Remeron) 7.5 mg HS GTB Last administered on 10/31/16at 21:36; Admin Dose 7.5 MG; Start 09/18/16 at 21:00 Ondansetron HCl (Zofran Inj) 4 mg Q4H PRN IV NAUSEA AND/OR VOMITING; Start 08/24 at 08:00 Morphine Sulfate (morphine) 2 mg Q3H PRN IV PAIN LEVEL 6-10 Last administered on 09/28/16 12:25; Admin Dose 2 MG; Start 09/18/16 at 08:00 Lorazepam (Ativan) 0.5 mg Q3H PRN IV ANXIETY; Start 09/18/16 at 08:00 IV Flush (NS 10 ml) 10 ml PRN PRN IV IV PROTOCOL Last administered on at 06:01; Admin Dose 10 ML; Start 09/18/16 at 13:00 Lansoprazole (Prevacid) 30 mg DAILY@06 PO Last administered on 11/01/16 05:28 ; Admin Dose 30 MG; Start 09/27/16 at 06:00 Apixaban (Eliquis) 2.5 mg BID GTB Last administered on 11/01/16 09:29; Admin Dose 2.5 MG; Start 09/30/16 at 09:00; Status Future hold Metoclopramide HCl (Reglan) 5 mg Q6 IV Last administered on 11/01/16 17:54; Admin Dose 5 MG; Start 09/30/16 at 12:00 Sildenafil Citrate (Revatio) 20 mg TID GTB Last administered on 11/01/16 13: 34; Admin Dose 20 MG; Start 10/08/16 at 10:45 Pramoxine HCl 1 applic 1 applic TID [place] Last administered on 11/01/16at 14:06; Admin Dose 1 APPLIC; Start 10/10/16 at 21:00 Vancomycin HCl/ Sodium Chloride (Vancocin/NS) 250 ml @ 83.333 mls/ hr Q96H IVPB Last administered on 10/30/16at 14:04; Admin Dose 83.333 MLS/HR; Start at 14:00 Hydrocortisone (Hydrocortisone 1% Cr) 1 applic BID TOP Last administered on 09:32; Admin Dose 1 APPLIC; Start 10/30/16 at 15:30 Diphenhydramine HCl (Benadryl) 25 mg Q8H PRN PO ITCHING; Start 10/30/16 at 15: 00 Assessment/Plan Chief Complaint/Hosp Course INDWELLING: trach, PEG, RIJ Perm-A-Cath Micro: 10/21 Bld cx + Staph species Abx: Vanco PHYSICAL EXAMINATION: GENERAL: Fragile, chronically ill-appearing, elderly woman who is lying comfortably in bed. HEENT: Head atraumatic, normocephalic. Sclerae anicteric. Buccal mucosa dry. NECK: Supple. Tracheostomy present. CHEST: Rise symmetrical. Breath sounds diminished to bases. HEART: S1, S2. ABDOMEN: Soft, bowel tones present. EXTREMITIES: Without cyanosis. ASSESSMENT: 1. Status post septic shock shock. 2. GPC septicemia===> PICC dc'd 2. S/p healthcare-associated pneumonia with parapneumonic pleural effusion and sputum culture growing multi-drug resistant Pseudomonas aeruginosa. 3. Methicillin-resistant Staphylococcus aureus infected decubitus. 4. S/p joe glabrata urinary tract infection. 5. Methicillin-resistant Staphylococcus aureus nares colonization. 6. End-stage renal disease, hemodialysis dependent. 7. History of cerebrovascular accident. 8. Recurrent ascites==> s/p paracentesis 09/24, 10/14 9. ALLERGY TO PENICILLIN AND SULFA. PLAN: Clinically unchanged, no fevers, repeat bld cx negative, continue Yosvany MCLEAN RN Problems: RAISSA ROA NP Nov 01, 2016 21:42
[2016-11-01] MEDS: MIRTAZAPINE 15 MG TAB GTB SCH (21:43)
[2016-11-02] VITALS (22 sets, daily range): BP systolic 114–128; BP diastolic 53–61; PULSE 97–115; RESP 12–17
[2016-11-02] MEDS: IPRATROPIUM (HFA) 12.9 GM INHALER INH SCH ×6 (01:05→20:25)
[2016-11-02] MEDS: LEVALBUTEROL (HFA) 15 GM INHALER INH SCH ×6 (01:05→20:25)
[2016-11-02] MEDS: LANSOPRAZOLE 30 MG CAP PO SCH (05:59)
[2016-11-02] MEDS: METOCLOPRAMIDE 10 MG INJ IV SCH ×5 (05:59→23:58)
[2016-11-02] MEDS: PRAMOXINE 1% 15 GM RECT FOAM PR SCH ×3 (09:00→20:55)
[2016-11-02] MEDS: BUDESONIDE (NEB) 0.5MG/2ML AMP HHN SCH ×2 (09:00→20:00)
[2016-11-02] MEDS: APIXABAN 5 MG TABLET GTB SCH ×2 (09:40→20:57)
[2016-11-02] MEDS: SILDENAFIL 20 MG TAB GTB SCH ×3 (09:41→20:57)
[2016-11-02] MEDS: LEVETIRACETAM IV 500 MG in DEXTROSE 5% 100 ML IVPB SCH ×2 (09:41→20:56)
--- NOTE | 2016-11-02 13:33 | CONS ---
Date/Time of Note Date/Time of Note DATE: 11/02/16 TIME: 13:32 Assessment/Plan Assessment/Plan Additional Assessment/Plan Assessment/Plan Additional Assessment/Plan ASSESSMENT: 1. Renal failure on dialysis. 2. Vent dependent respiratory failure. 3. Chronic obstructive pulmonary disease. 4. Atrial fibrillation. 5. Ascites, successful paracentesis done. 6. Dysphagia 7. G-tube clean,no leakage,tolerating feeding 8. Anemia: stable, likely from anemia of chronic disease 9. Status post septic shock. 10. Diabetes mellitus. 11. Decubitus ulcer. 12. Congestive heart failure. 13. Seizure disorder. 14. pneumonia,s/p sepsis 15.pulmonary hypertension 16 persistent leucocytosis,better 17.pressure ulcer g tube site,healed Plan continue antibiotics per ID [place] for gastroparesis. G-tube site ,no leakage of formula,or even ascites fluid continue present care discussed with family no leakage also from paracentesis punctured site.d/c colostomy bag Consultation Date/Type/Reason Admit Date/Time Sep 17, 2016 at 18:49 Type of Consultation: ID 24 HR Interval Summary Constitutional: no complaints Exam/Review of Systems Vital Signs Vitals Vital Signs Date Time Temp Pulse Resp B/P Pulse Ox O2 Delivery O2 Flow Rate FiO2 11/02/16 12:25 115 11/02/16 11:50 16 99 40 11/02/16 11:50 99.0 120/57 Intake and Output 11/01/16 11/01/16 11/02/16 15:00 23:00 07:00 Intake Total 600 ml Balance 600 ml Exam Constitutional: alert, oriented, well developed Psych: nl mood/affect, no complaints Head: atraumatic, normocephalic Eyes: EOMI, PERRL, nl conjunctiva, nl lids, nl sclera ENMT: nl external ears & nose, nl lips & teeth, nl nasal mucosa & septum Neck: non-tender, supple Respiratory: clear to auscultation, normal air movement Cardiovascular: nl pulses, regular rate and rhythm Gastrointestinal: nl liver, spleen, non-tender, soft Musculoskeletal: nl extremities to inspection, nl gait and stance Extremities: normal pulses Neurological: INLAYER II-XII intact, nl mental status, nl speech, nl strength Skin: nl turgor, No rash or lesions Lymph: nl lymph nodes Results Result Diagram: 10/31/16 0640 Medications Medications Current Medications Levetiracetam/ Dextrose (Keppra Iv/D5W) 105 ml @ 420 mls/hr Q12 IVPB Last administered on 11/02/16 09:41; Admin Dose 420 MLS/HR; Start 09/18/16 at 09: 00 Collagenase (Santyl) 1 applic DAILY TOP Last administered on 11/01/16 09:33; Admin Dose 1 APPLIC; Start 09/18/16 at 09:00 Acetaminophen (Tylenol Liquid) 650 mg Q4H PRN NGT PAIN AND OR ELEVATED TEMP Last administered on 09/29/16at 12:07; Admin Dose 650 MG; Start 09/18/16 at 08: 00 Bisacodyl (Dulcolax Supp) 10 mg DAILY PRN [place] CONSTIPATION; Start 09/18/16 at 08:00 Mupirocin (Bactroban) Apply to bilateral nares ... BID TOP Last administered on 11/01/16at 21:44; Admin Dose 10 APPLIC; Start 09/18/16 at 09:00 Mirtazapine (Remeron) 7.5 mg HS GTB Last administered on 11/01/16at 21:43; Admin Dose 7.5 MG; Start 09/18/16 at 21:00 Ondansetron HCl (Zofran Inj) 4 mg Q4H PRN IV NAUSEA AND/OR VOMITING; Start 08/24 at 08:00 Morphine Sulfate (morphine) 2 mg Q3H PRN IV PAIN LEVEL 6-10 Last administered on 09/28/16at 12:25; Admin Dose 2 MG; Start 09/18/16 at 08:00 Lorazepam (Ativan) 0.5 mg Q3H PRN IV ANXIETY; Start 09/18/16 at 08:00 IV Flush (NS 10 ml) 10 ml PRN PRN IV IV PROTOCOL Last administered on at 06:01; Admin Dose 10 ML; Start 09/18/16 at 13:00 Lansoprazole (Prevacid) 30 mg DAILY@06 PO Last administered on 11/02/16 05:59 ; Admin Dose 30 MG; Start 09/27/16 at 06:00 Apixaban (Eliquis) 2.5 mg BID GTB Last administered on 11/02/16at 09:40; Admin Dose 2.5 MG; Start 09/30/16 at 09:00; Status Future hold Metoclopramide HCl (Reglan) 5 mg Q6 IV Last administered on 11/02/16at 12:53; Admin Dose 5 MG; Start 09/30/16 at 12:00 Sildenafil Citrate (Revatio) 20 mg TID GTB Last administered on 11/02/16at 12: 53; Admin Dose 20 MG; Start 10/08/16 at 10:45 Pramoxine HCl 1 applic 1 applic TID [place] Last administered on 11/01/16at 21:00; Admin Dose 1 APPLIC; Start 10/10/16 at 21:00 Vancomycin HCl/ Sodium Chloride (Vancocin/NS) 250 ml @ 83.333 mls/ hr Q96H IVPB Last administered on 10/30/16at 14:04; Admin Dose 83.333 MLS/HR; Start at 14:00 Hydrocortisone (Hydrocortisone 1% Cr) 1 applic BID TOP Last administered on at 21:44; Admin Dose 1 APPLIC; Start 10/30/16 at 15:30 Diphenhydramine HCl (Benadryl) 25 mg Q8H PRN PO ITCHING; Start 10/30/16 at 15: 00 Miscellaneous Information (*Rx Drug Level Order Reminder*) VANCOMYCIN TROUGH LEVEL... ONCE ONCE XX ; Start 11/03/16 at 13:00; Stop 11/03/16 at 13:01 ANNABEL CISSE MD Nov 02, 2016 13:33
--- NOTE | 2016-11-02 15:00 | CONS ---
Date/Time of Note Date/Time of Note DATE: 11/02/16 TIME: 14:59 Consult Date/Type/Reason Admit Date/Time Sep 17, 2016 at 18:49 Type of Consultation: ID Subjective no acute events, looks comfortable, no fevers Objective Vital Signs Date Time Temp Pulse Resp B/P Pulse Ox O2 Delivery O2 Flow Rate FiO2 11/02/16 14:31 95 12 99 40 11/02/16 11:50 99.0 120/57 Intake and Output 11/01/16 11/01/16 11/02/16 15:00 23:00 07:00 Intake Total 600 ml Balance 600 ml Results/Medications Result Diagram: 10/31/16 0640 Medications Current Medications Levetiracetam/ Dextrose (Keppra Iv/D5W) 105 ml @ 420 mls/hr Q12 IVPB Last administered on 11/02/16at 09:41; Admin Dose 420 MLS/HR; Start 09/18/16 at 09: 00 Collagenase (Santyl) 1 applic DAILY TOP Last administered on 11/01/16at 09:33; Admin Dose 1 APPLIC; Start 09/18/16 at 09:00 Acetaminophen (Tylenol Liquid) 650 mg Q4H PRN NGT PAIN AND OR ELEVATED TEMP Last administered on 09/29/16at 12:07; Admin Dose 650 MG; Start 09/18/16 at 08: 00 Bisacodyl (Dulcolax Supp) 10 mg DAILY PRN [place] CONSTIPATION; Start 09/18/16 at 08:00 Mupirocin (Bactroban) Apply to bilateral nares ... BID TOP Last administered on 11/01/16at 21:44; Admin Dose 10 APPLIC; Start 09/18/16 at 09:00 Mirtazapine (Remeron) 7.5 mg HS GTB Last administered on 11/01/16at 21:43; Admin Dose 7.5 MG; Start 09/18/16 at 21:00 Ondansetron HCl (Zofran Inj) 4 mg Q4H PRN IV NAUSEA AND/OR VOMITING; Start 08/24 at 08:00 Morphine Sulfate (morphine) 2 mg Q3H PRN IV PAIN LEVEL 6-10 Last administered on 09/28/16at 12:25; Admin Dose 2 MG; Start 09/18/16 at 08:00 Lorazepam (Ativan) 0.5 mg Q3H PRN IV ANXIETY; Start 09/18/16 at 08:00 IV Flush (NS 10 ml) 10 ml PRN PRN IV IV PROTOCOL Last administered on at 06:01; Admin Dose 10 ML; Start 09/18/16 at 13:00 Lansoprazole (Prevacid) 30 mg DAILY@06 PO Last administered on 11/02/16 05:59 ; Admin Dose 30 MG; Start 09/27/16 at 06:00 Apixaban (Eliquis) 2.5 mg BID GTB Last administered on 11/02/16 09:40; Admin Dose 2.5 MG; Start 09/30/16 at 09:00; Status Future hold Metoclopramide HCl (Reglan) 5 mg Q6 IV Last administered on 11/02/16 12:53; Admin Dose 5 MG; Start 09/30/16 at 12:00 Sildenafil Citrate (Revatio) 20 mg TID GTB Last administered on 11/02/16 12: 53; Admin Dose 20 MG; Start 10/08/16 at 10:45 Pramoxine HCl 1 applic 1 applic TID [place] Last administered on 11/01/16at 21:00; Admin Dose 1 APPLIC; Start 10/10/16 at 21:00 Vancomycin HCl/ Sodium Chloride (Vancocin/NS) 250 ml @ 83.333 mls/ hr Q96H IVPB Last administered on 10/30/16at 14:04; Admin Dose 83.333 MLS/HR; Start at 14:00 Hydrocortisone (Hydrocortisone 1% Cr) 1 applic BID TOP Last administered on at 21:44; Admin Dose 1 APPLIC; Start 10/30/16 at 15:30 Diphenhydramine HCl (Benadryl) 25 mg Q8H PRN PO ITCHING; Start 10/30/16 at 15: 00 Miscellaneous Information (*Rx Drug Level Order Reminder*) VANCOMYCIN TROUGH LEVEL... ONCE ONCE XX ; Start 11/03/16 at 13:00; Stop 11/03/16 at 13:01 Assessment/Plan Chief Complaint/Hosp Course INDWELLING: trach, PEG, RIJ Perm-A-Cath Micro: 10/21 Bld cx + Staph species Abx: Vanco PHYSICAL EXAMINATION: GENERAL: Fragile, chronically ill-appearing, elderly woman who is lying comfortably in bed. HEENT: Head atraumatic, normocephalic. Sclerae anicteric. Buccal mucosa dry. NECK: Supple. Tracheostomy present. CHEST: Rise symmetrical. Breath sounds diminished to bases. HEART: S1, S2. ABDOMEN: Soft, bowel tones present. EXTREMITIES: Without cyanosis. ASSESSMENT: 1. Status post septic shock shock. 2. GPC septicemia===> PICC dc'd 2. S/p healthcare-associated pneumonia with parapneumonic pleural effusion and sputum culture growing multi-drug resistant Pseudomonas aeruginosa. 3. Methicillin-resistant Staphylococcus aureus infected decubitus. 4. S/p joe glabrata urinary tract infection. 5. Methicillin-resistant Staphylococcus aureus nares colonization. 6. End-stage renal disease, hemodialysis dependent. 7. History of cerebrovascular accident. 8. Recurrent ascites==> s/p paracentesis 09/24, 10/14 9. ALLERGY TO PENICILLIN AND SULFA. PLAN: Clinically unchanged, repeat bld cx negative, continue Yosvany MCLEAN RN Problems: RAISSA ROA NP Nov 02, 2016 15:00
[2016-11-02] MEDS: COLLAGENASE 30 GM TUBE TOP SCH (16:55)
[2016-11-02] MEDS: MUPIROCIN 2% 22 GM OINT TOP SCH ×2 (16:56→20:54)
[2016-11-02] MEDS: HYDROCORTISONE 1% 28 GM CR TOP SCH ×2 (16:56→20:54)
[2016-11-02] MEDS: MIRTAZAPINE 15 MG TAB GTB SCH (20:57)
--- NOTE | 2016-11-02 23:55 | CONS ---
Date/Time of Note Date/Time of Note DATE: 11/02/16 TIME: 23:54 Consult Date/Type/Reason Admit Date/Time Sep 17, 2016 at 18:49 Type of Consultation: ID Subjective The patient is stable, no acute events overnight. No fevers, chills, nausea, vomiting. No shortness of breath. tolerated hd yesterday Objective Vital Signs Date Time Temp Pulse Resp B/P Pulse Ox O2 Delivery O2 Flow Rate FiO2 11/02/16 21:21 93 13 99 40 11/02/16 20:53 99.2 118/53 Intake and Output 11/01/16 11/01/16 11/02/16 15:00 23:00 07:00 Intake Total 600 ml Balance 600 ml HEENT: Head is normocephalic. NECK: Supple. HEART: Regular rate. LUNGS: Show diminished breath sounds at the base. ABDOMEN: Soft, nontender to palpation. No rebound or guarding. EXTREMITIES: Negative for clubbing, cyanosis. No edema. DERMATOLOGIC: No rashes. MUSCULOSKELETAL: No joint effusions. NEUROLOGIC: No change in exam. Results/Medications Result Diagram: 10/31/16 0640 Medications Current Medications Levetiracetam/ Dextrose (Keppra Iv/D5W) 105 ml @ 420 mls/hr Q12 IVPB Last administered on 11/02/16at 20:56; Admin Dose 420 MLS/HR; Start 09/18/16 at 09: 00 Collagenase (Santyl) 1 applic DAILY TOP Last administered on 11/02/16at 16:55; Admin Dose 1 APPLIC; Start 09/18/16 at 09:00 Acetaminophen (Tylenol Liquid) 650 mg Q4H PRN NGT PAIN AND OR ELEVATED TEMP Last administered on 09/29/16at 12:07; Admin Dose 650 MG; Start 09/18/16 at 08: 00 Bisacodyl (Dulcolax Supp) 10 mg DAILY PRN [place] CONSTIPATION; Start 09/18/16 at 08:00 Mupirocin (Bactroban) Apply to bilateral nares ... BID TOP Last administered on 11/02/16at 20:54; Admin Dose 1 APPLIC; Start 09/18/16 at 09:00 Mirtazapine (Remeron) 7.5 mg HS GTB Last administered on 11/02/16at 20:57; Admin Dose 7.5 MG; Start 09/18/16 at 21:00 Ondansetron HCl (Zofran Inj) 4 mg Q4H PRN IV NAUSEA AND/OR VOMITING; Start 08/24 at 08:00 Morphine Sulfate (morphine) 2 mg Q3H PRN IV PAIN LEVEL 6-10 Last administered on 09/28/16 12:25; Admin Dose 2 MG; Start 09/18/16 at 08:00 Lorazepam (Ativan) 0.5 mg Q3H PRN IV ANXIETY; Start 09/18/16 at 08:00 IV Flush (NS 10 ml) 10 ml PRN PRN IV IV PROTOCOL Last administered on 06:01; Admin Dose 10 ML; Start 09/18/16 at 13:00 Lansoprazole (Prevacid) 30 mg DAILY@06 PO Last administered on 11/02/16 05:59 ; Admin Dose 30 MG; Start 09/27/16 at 06:00 Apixaban (Eliquis) 2.5 mg BID GTB Last administered on 11/02/16 20:57; Admin Dose 2.5 MG; Start 09/30/16 at 09:00; Status Future hold Metoclopramide HCl (Reglan) 5 mg Q6 IV Last administered on 11/02/16 17:49; Admin Dose 5 MG; Start 09/30/16 at 12:00 Sildenafil Citrate (Revatio) 20 mg TID GTB Last administered on 11/02/16 20: 57; Admin Dose 20 MG; Start 10/08/16 at 10:45 Pramoxine HCl 1 applic 1 applic TID MD Last administered on 11/02/16 20:55; Admin Dose 1 APPLIC; Start 10/10/16 at 21:00 Vancomycin HCl/ Sodium Chloride (Vancocin/NS) 250 ml @ 83.333 mls/ hr Q96H IVPB Last administered on 10/30/16 14:04; Admin Dose 83.333 MLS/HR; Start at 14:00 Hydrocortisone (Hydrocortisone 1% Cr) 1 applic BID TOP Last administered on 20:54; Admin Dose 1 APPLIC; Start 10/30/16 at 15:30 Diphenhydramine HCl (Benadryl) 25 mg Q8H PRN PO ITCHING; Start 10/30/16 at 15: 00 Miscellaneous Information (*Rx Drug Level Order Reminder*) VANCOMYCIN TROUGH LEVEL... ONCE ONCE XX ; Start 11/03/16 at 13:00; Stop 11/03/16 at 13:01 Assessment/Plan Chief Complaint/Hosp Course 1. Sepsis secondary to acute pneumonia, decubitus wound. The patient is currently on antibiotics, finishing course. 2. End-stage renal disease. Continue hemodialysis. Plan for dialysis thursday. 3. Hyponatremia secondary to end-stage renal disease. Continue to limit free water flushes. Continue dialysis on a 140 sodium bath. 4. Abdominal ascites secondary to congestive heart failure, end-stage renal disease. Continue ultrafiltration dialysis, intermittent paracentesis as needed. 5. Pulmonary hypertension. Continue sildenafil. 6. Decubitus wound. Continue wound care. 7. Anemia. Continue to monitor hemoglobin and hematocrit levels. Continue Epogen. 8. Seizure disorder. Continue Keppra. 9. History of dysphagia, status post PEG. Continue tube feeding. 10. Ventilator dependent respiratory failure. Vent settings have been reviewed. Continue to monitor. Follow up with pulmonary. 11. Atrial fibrillation, rate controlled. Continue current medical management. 12. Encephalopathy. No change. 13. Gastrointestinal and deep venous thrombosis prophylaxis. Continue proton pump inhibitor and Eliquis. Problems: ZEN TORO MD Nov 02, 2016 23:55
[2016-11-03] VITALS (34 sets, daily range): BP systolic 85–116; BP diastolic 40–57; PULSE 84–114; RESP 13–18
[2016-11-03] MEDS: LEVALBUTEROL (HFA) 15 GM INHALER INH SCH ×6 (01:24→20:09)
[2016-11-03] MEDS: IPRATROPIUM (HFA) 12.9 GM INHALER INH SCH ×6 (01:24→20:08)
[2016-11-03] MEDS: METOCLOPRAMIDE 10 MG INJ IV SCH ×3 (05:44→16:42)
[2016-11-03] MEDS: LANSOPRAZOLE 30 MG CAP PO SCH (05:44)
[2016-11-03] MEDS: LEVETIRACETAM IV 500 MG in DEXTROSE 5% 100 ML IVPB SCH ×2 (08:45→21:15)
[2016-11-03] MEDS: HYDROCORTISONE 1% 28 GM CR TOP SCH ×2 (08:46→21:15)
[2016-11-03] MEDS: SILDENAFIL 20 MG TAB GTB SCH ×2 (08:46→11:06)
[2016-11-03] MEDS: MUPIROCIN 2% 22 GM OINT TOP SCH ×2 (08:46→21:15)
[2016-11-03] MEDS: COLLAGENASE 30 GM TUBE TOP SCH (08:46)
[2016-11-03] MEDS: APIXABAN 5 MG TABLET GTB SCH ×2 (08:46→21:17)
[2016-11-03] MEDS: PRAMOXINE 1% 15 GM RECT FOAM PR SCH ×3 (08:47→21:16)
--- NOTE | 2016-11-03 09:50 | PN ---
DATE: 11/02/2016 CARDIOLOGY FOLLOWUP SUBJECTIVE: Discussed with the staff. Rhythm strip was reviewed. The patient remains in atrial fib rillation. Heart rate remained stable atrial fibrillation. The patient is still on the vent. No reported chest pain or pressure. MEDICATIONS: Reviewed. PHYSICAL EXAMINATION: VITAL SIGNS: Temperature 99, heart rate of 100, blood pressure 120/57, respiration rate of 18. HEENT: Normocephalic, atraumatic. Pupils are equal. CARDIOVASCULAR: Irregularly irregular. Systolic murmur. PULMONARY: With no wheezes, mild diffuse rhonchi. GASTROINTESTINAL: Soft, nontender. EXTREMITIES: Positive edema on lower extremity. NEUROLOGIC: Awake and alert. PSYCHIATRIC: Calm and very pleasant. ASSESSMENT AND PLAN: 1. Hypoxemic respiratory failure, status post tracheostomy, vent dependent. 2. Atrial fibrillation, chronic, on anticoagulation and heart rate control. 3. Status post sepsis and shock, pneumonia, currently improved. 4. Renal failure on dialysis. 5. History of possible ASD and pulmonary hypertension. 6. Severe anemia. RECOMMENDATIONS: We will continue with the current cardiac care. Antibiotic will be continued. We will monitor rate, and signs of bleeding. Respiratory care and vent will be continued, management as per pulmonary. Dictated By: AMANDA LARA/ARNOLDO Conf#: [id number] DID#: [id number] CC: RUDDY GEE DO;*EndCC*
--- NOTE | 2016-11-03 11:05 | PN ---
DATE: 11/03/2016 SUBJECTIVE: The patient is stable, no acute events overnight. No fevers, chills, nausea/vomiting, no shortness of breath . OBJECTIVE: VITAL SIGNS: Blood pressure 114/50, respirations 17, pulse , temperature 98.4. HEENT: Head is normocephalic. NECK: Supple. HEART: Regular rate. LUNGS: Show diminished breath sounds at base. ABDOMEN: Soft, nontender to palpation. No rebound or guarding. EXTREMITIES: Negative for clubbing, cyanosis, no edema. DERMATOLOGIC: No rashes. MUSCULOSKELETAL: No joint effusions. NEUROLOGIC: No change in exam. MEDICATIONS: The patient's medications have been reviewed. LABORATORY DATA: Has been reviewed. No new labs. ASSESSMENT AND PLAN: 1. Sepsis secondary to pneumonia, decubitus wound. The patient is completing antibiotic course. W e will continue. Follow up with Infectious Disease. 2. End-stage renal disease. The patient is scheduled for hemodialysis today. 3. Hyponatremia secondary to end-stage renal disease. Continue to limit free water intake. Contin ue dialysis 140 sodium bath. 4. Abdominal ascites secondary to congestive heart failure with end stage renal disease. Continue ultrafiltration dialysis. Continue intermittent paracentesis as needed. Followup with Gastroentero logy. 5. Pulmonary hypertension. Continue sildenafil. 6. Decubitus wound. Continue wound care. 7. Anemia. Continue to monitor hemoglobin and hematocrit levels. Continue Epogen. 8. Seizure disorder. Continue Keppra. 9. Dysphagia. Status post PEG. Continue tube feeding. 10. Ventilatory dependent respiratory failure. Vent settings reviewed. Continue to monitor. Foll ow up with pulmonary. 11. Atrial fibrillation, rate controlled. Continue medical management. 12. Encephalopathy. No change. 13. Gastrointestinal and deep venous thrombosis prophylaxis. Continue PPI and Eliquis. 14. Disposition. The patient is pending transfer to subacute facility when bed is available. Dictated By: RUDDY BUSTILLOS/ARNOLDO Conf#: [id number] DID#: [id number]
--- NOTE | 2016-11-03 11:25 | PN ---
DATE: 11/03/2016 CARDIOLOGY FOLLOWUP SUBJECTIVE: Discussed with the staff. Rhythm strip was reviewed. The patient remains in atrial fi brillation, heart overall under control. No report of chest pain or pressure. MEDICATIONS: Reviewed. The patient is trach on the vent. MEDICATIONS: Reviewed. PHYSICAL EXAMINATION: VITAL SIGNS: Temperature 98.4, heart rate 103, blood pressure 114/50, respiration rate of 17, satur ating 98%. HEENT: Normocephalic, atraumatic. Pupils are equal. CARDIOVASCULAR: Irregularly irregular. PULMONARY: With no wheezes. GASTROINTESTINAL: Soft, nontender. EXTREMITIES: With diffuse edema. NEUROLOGIC: Awake, responds appropriately. ASSESSMENT AND PLAN: 1. Atrial fibrillation, chronic on anticoagulation, heart rate control. 2. Hypoxemia respiratory failure, status post tracheostomy, on vent dependent. 3. Pulmonary hypertension, possible ASD. 4. Status post sepsis and shock and pneumonia, currently on antibiotic and treatment. 5. Renal failure on dialysis. 6. Severe anemia. RECOMMENDATIONS: Will continue to monitor on telemetry. Dialysis will be continued. Respiratory v entilator care and vent support will be continued. Antibiotic is managed as per ID as needed. Dictated By: AMANDA PINTO MD AV/ARNOLDO Conf#: [id number] DID#: [id number] CC: RUDDY GEE DO;*EndCC*
[2016-11-03] MEDS: BUDESONIDE (NEB) 0.5MG/2ML AMP HHN SCH ×2 (11:27→20:13)
[2016-11-03] MEDS: ALBUMIN HUMAN 25% 100 ML IV PRN ×2 (13:54→14:14)
[2016-11-03] MEDS ORDERED: HEPARIN 1000 UNITS/ML 10 ML INJ CATHETER SCH ×2 (14:00)
--- NOTE | 2016-11-03 15:17 | CONS ---
Date/Time of Note Date/Time of Note DATE: 11/03/16 TIME: 15:17 Consult Date/Type/Reason Admit Date/Time Sep 17, 2016 at 18:49 Type of Consultation: ID Subjective in HD, nad, no fevers Objective Vital Signs Date Time Temp Pulse Resp B/P Pulse Ox O2 Delivery O2 Flow Rate FiO2 11/03/16 15:00 86 11/03/16 13:10 16 96 40 11/03/16 10:57 98.5 95/43 Intake and Output 11/02/16 11/02/16 11/03/16 15:00 23:00 07:00 Intake Total 600 ml Balance 600 ml Results/Medications Result Diagram: 10/31/16 0640 Results 24 hrs Laboratory Tests Test 11/03/16 13:40 Vancomycin Level Trough 11.8 Medications Current Medications Levetiracetam/ Dextrose (Keppra Iv/D5W) 105 ml @ 420 mls/hr Q12 IVPB Last administered on 11/03/16at 08:45; Admin Dose 420 MLS/HR; Start 09/18/16 at 09: 00 Collagenase (Santyl) 1 applic DAILY TOP Last administered on 11/03/16at 08:46; Admin Dose 1 APPLIC; Start 09/18/16 at 09:00 Acetaminophen (Tylenol Liquid) 650 mg Q4H PRN NGT PAIN AND OR ELEVATED TEMP Last administered on 09/29/16at 12:07; Admin Dose 650 MG; Start 09/18/16 at 08: 00 Bisacodyl (Dulcolax Supp) 10 mg DAILY PRN [place] CONSTIPATION; Start 09/18/16 at 08:00 Mupirocin (Bactroban) Apply to bilateral nares ... BID TOP Last administered on 11/03/16at 08:46; Admin Dose 1 APPLIC; Start 09/18/16 at 09:00 Mirtazapine (Remeron) 7.5 mg HS GTB Last administered on 11/02/16at 20:57; Admin Dose 7.5 MG; Start 09/18/16 at 21:00 Ondansetron HCl (Zofran Inj) 4 mg Q4H PRN IV NAUSEA AND/OR VOMITING; Start 08/24 at 08:00 Morphine Sulfate (morphine) 2 mg Q3H PRN IV PAIN LEVEL 6-10 Last administered on 09/28/16 12:25; Admin Dose 2 MG; Start 09/18/16 at 08:00 Lorazepam (Ativan) 0.5 mg Q3H PRN IV ANXIETY; Start 09/18/16 at 08:00 IV Flush (NS 10 ml) 10 ml PRN PRN IV IV PROTOCOL Last administered on 06:01; Admin Dose 10 ML; Start 09/18/16 at 13:00 Lansoprazole (Prevacid) 30 mg DAILY@06 PO Last administered on 11/03/16at 05:44 ; Admin Dose 30 MG; Start 09/27/16 at 06:00 Apixaban (Eliquis) 2.5 mg BID GTB Last administered on 11/03/16 08:46; Admin Dose 2.5 MG; Start 09/30/16 at 09:00; Status Future hold Metoclopramide HCl (Reglan) 5 mg Q6 IV Last administered on 11/03/16 11:30; Admin Dose 5 MG; Start 09/30/16 at 12:00 Sildenafil Citrate (Revatio) 20 mg TID GTB Last administered on 11/03/16at 08: 46; Admin Dose 20 MG; Start 10/08/16 at 10:45 Pramoxine HCl 1 applic 1 applic TID [place] Last administered on 11/03/16at 11:31; Admin Dose 1 APPLIC; Start 10/10/16 at 21:00 Vancomycin HCl/ Sodium Chloride (Vancocin/NS) 250 ml @ 83.333 mls/ hr Q96H IVPB Last administered on 10/30/16at 14:04; Admin Dose 83.333 MLS/HR; Start at 14:00 Hydrocortisone (Hydrocortisone 1% Cr) 1 applic BID TOP Last administered on 08:46; Admin Dose 1 APPLIC; Start 10/30/16 at 15:30 Diphenhydramine HCl (Benadryl) 25 mg Q8H PRN PO ITCHING; Start 10/30/16 at 15: 00 Assessment/Plan Chief Complaint/Hosp Course INDWELLING: trach, PEG, RIJ Perm-A-Cath Micro: 10/21 Bld cx + Staph species Abx: Vanco PHYSICAL EXAMINATION: GENERAL: Fragile, chronically ill-appearing, elderly woman who is lying comfortably in bed. HEENT: Head atraumatic, normocephalic. Sclerae anicteric. Buccal mucosa dry. NECK: Supple. Tracheostomy present. CHEST: Rise symmetrical. Breath sounds diminished to bases. HEART: S1, S2. ABDOMEN: Soft, bowel tones present. EXTREMITIES: Without cyanosis. ASSESSMENT: 1. Status post septic shock shock. 2. GPC septicemia===> PICC dc'd 2. S/p healthcare-associated pneumonia with parapneumonic pleural effusion and sputum culture growing multi-drug resistant Pseudomonas aeruginosa. 3. Methicillin-resistant Staphylococcus aureus infected decubitus. 4. S/p joe glabrata urinary tract infection. 5. Methicillin-resistant Staphylococcus aureus nares colonization. 6. End-stage renal disease, hemodialysis dependent. 7. History of cerebrovascular accident. 8. Recurrent ascites==> s/p paracentesis 09/24, 10/14 9. ALLERGY TO PENICILLIN AND SULFA. PLAN: Clinically unchanged, repeat bld cx negative, continue Vanco for 6 more days, f/u labs VINAY RN Problems: RAISSA ROA NP Nov 03, 2016 15:17
--- NOTE | 2016-11-03 15:49 | CONS ---
Date/Time of Note Date/Time of Note DATE: 11/03/16 TIME: 15:48 Assessment/Plan Assessment/Plan Additional Assessment/Plan ASSESSMENT: 1. Renal failure on dialysis. 2. Vent dependent respiratory failure. 3. Chronic obstructive pulmonary disease. 4. Atrial fibrillation. 5. Ascites, successful paracentesis done. 6. Dysphagia 7. G-tube clean,no leakage,tolerating feeding 8. Anemia: stable, likely from anemia of chronic disease 9. Status post septic shock. 10. Diabetes mellitus. 11. Decubitus ulcer. 12. Congestive heart failure. 13. Seizure disorder. 14. pneumonia,s/p sepsis 15.pulmonary hypertension 16 persistent leucocytosis,better 17.pressure ulcer g tube site,healed Plan continue antibiotics per ID Reglan for gastroparesis. G-tube site ,no leakage of formula,or even ascites fluid continue present care discussed with family no leakage also from paracentesis punctured site.d/c colostomy bag Consultation Date/Type/Reason Admit Date/Time Sep 17, 2016 at 18:49 Type of Consultation: ID 24 HR Interval Summary Constitutional: improved, no complaints Exam/Review of Systems Vital Signs Vitals Vital Signs Date Time Temp Pulse Resp B/P Pulse Ox O2 Delivery O2 Flow Rate FiO2 11/03/16 15:41 97.7 89 17 93/42 100 11/03/16 13:10 40 Intake and Output 11/02/16 11/02/16 11/03/16 15:00 23:00 07:00 Intake Total 600 ml Balance 600 ml Results Result Diagram: 10/31/16 0640 Results 24 hrs Laboratory Tests Test 11/03/16 13:40 Vancomycin Level Trough 11.8 Medications Medications Current Medications Levetiracetam/ Dextrose (Keppra Iv/D5W) 105 ml @ 420 mls/hr Q12 IVPB Last administered on 11/03/16at 08:45; Admin Dose 420 MLS/HR; Start 09/18/16 at 09: 00 Collagenase (Santyl) 1 applic DAILY TOP Last administered on 11/03/16at 08:46; Admin Dose 1 APPLIC; Start 09/18/16 at 09:00 Acetaminophen (Tylenol Liquid) 650 mg Q4H PRN NGT PAIN AND OR ELEVATED TEMP Last administered on 09/29/16at 12:07; Admin Dose 650 MG; Start 09/18/16 at 08: 00 Bisacodyl (Dulcolax Supp) 10 mg DAILY PRN [place] CONSTIPATION; Start 09/18/16 at 08:00 Mupirocin (Bactroban) Apply to bilateral nares ... BID TOP Last administered on 11/03/16at 08:46; Admin Dose 1 APPLIC; Start 09/18/16 at 09:00 Mirtazapine (Remeron) 7.5 mg HS GTB Last administered on 11/02/16at 20:57; Admin Dose 7.5 MG; Start 09/18/16 at 21:00 Ondansetron HCl (Zofran Inj) 4 mg Q4H PRN IV NAUSEA AND/OR VOMITING; Start 08/24 at 08:00 Morphine Sulfate (morphine) 2 mg Q3H PRN IV PAIN LEVEL 6-10 Last administered on 09/28/16at 12:25; Admin Dose 2 MG; Start 09/18/16 at 08:00 Lorazepam (Ativan) 0.5 mg Q3H PRN IV ANXIETY; Start 09/18/16 at 08:00 IV Flush (NS 10 ml) 10 ml PRN PRN IV IV PROTOCOL Last administered on at 06:01; Admin Dose 10 ML; Start 09/18/16 at 13:00 Lansoprazole (Prevacid) 30 mg DAILY@06 PO Last administered on 11/03/16at 05:44 ; Admin Dose 30 MG; Start 09/27/16 at 06:00 Apixaban (Eliquis) 2.5 mg BID GTB Last administered on 11/03/16at 08:46; Admin Dose 2.5 MG; Start 09/30/16 at 09:00; Status Future hold Metoclopramide HCl (Reglan) 5 mg Q6 IV Last administered on 11/03/16at 11:30; Admin Dose 5 MG; Start 09/30/16 at 12:00 Sildenafil Citrate (Revatio) 20 mg TID GTB Last administered on 11/03/16at 08: 46; Admin Dose 20 MG; Start 10/08/16 at 10:45 Pramoxine HCl 1 applic 1 applic TID [place] Last administered on 11/03/16at 11:31; Admin Dose 1 APPLIC; Start 10/10/16 at 21:00 Vancomycin HCl/ Sodium Chloride (Vancocin/NS) 250 ml @ 83.333 mls/ hr Q96H IVPB Last administered on 10/30/16at 14:04; Admin Dose 83.333 MLS/HR; Start at 14:00; Stop 11/03/16 at 17:00 Hydrocortisone (Hydrocortisone 1% Cr) 1 applic BID TOP Last administered on at 08:46; Admin Dose 1 APPLIC; Start 10/30/16 at 15:30 Diphenhydramine HCl 25 mg 25 mg Q8H PRN PO ITCHING; Start 10/30/16 at 15:00 Vancomycin HCl/ Sodium Chloride (Vancocin/NS) 250 ml @ 83.333 mls/ hr Q96H IVPB ; Start 11/07/16 at 06:00 ANNABEL CISSE MD Nov 03, 2016 15:48
[2016-11-03 15:54] LABS: BASOPHILS % 0.4 % (0.0-2.0); EOSINOPHILS # 0.1 10^3/ul (0.0-0.5); EOSINOPHILS % 0.6 % (0.0-7.0); HEMATOCRIT 25.1 % (37.0-47.0); LYMPHOCYTES # 1.2 10^3/ul (0.8-2.9); LYMPHOCYTES % 10.8 % (15.0-51.0); MEAN CORPUSCULAR HEMOGLOBIN 31.9 pg (29.0-33.0); MEAN CORPUSCULAR HGB CONC 31.8 g/dl (32.0-37.0); MEAN CORPUSCULAR VOLUME 100.3 fl (82.0-101.0); MEAN PLATELET VOLUME 6.2 fl (7.4-10.4); MONOCYTE # 0.8 10^3/ul (0.3-0.9); MONOCYTES % 7.4 % (0.0-11.0); NEUTROPHIL # 8.7 10^3/ul (1.6-7.5); NEUTROPHILS % 80.8 % (39.0-77.0); PLATELET COUNT 235 10^3/UL (140-440); RED CELL DISTRIBUTION WIDTH 19.1 % (11.5-14.5); UNCORRECTED WBC 10.8 10^3/ul (4.8-10.8); WHITE BLOOD COUNT 10.8 10^3/ul (4.8-10.8)
[2016-11-03 15:59] LABS: CONDITION 1; LH ANALYZER COMMENTS 1
[2016-11-03] MEDS: EPOETIN 10000 UNITS/1 ML INJ (ESRD) SC SCH (16:43)
[2016-11-03] MEDS: VANCOMYCIN 1.25 GM in SOD CHLORIDE 0.9% 250 ML IVPB SCH (16:44)
[2016-11-03] MEDS: MIRTAZAPINE 15 MG TAB GTB SCH (21:16)
[2016-11-04] VITALS (25 sets, daily range): BP systolic 96–119; BP diastolic 46–57; PULSE 91–102; RESP 12–89
[2016-11-04] MEDS: METOCLOPRAMIDE 10 MG INJ IV SCH ×4 (00:11→16:50)
[2016-11-04] MEDS: SILDENAFIL 20 MG TAB GTB SCH ×4 (00:12→21:59)
[2016-11-04] MEDS: IPRATROPIUM (HFA) 12.9 GM INHALER INH SCH ×6 (01:24→21:14)
[2016-11-04] MEDS: LEVALBUTEROL (HFA) 15 GM INHALER INH SCH ×6 (01:24→21:14)
[2016-11-04] MEDS: LANSOPRAZOLE 30 MG CAP PO SCH (05:25)
[2016-11-04 06:55] LABS: POTASSIUM 4.4 mmol/L (3.5-5.1)
[2016-11-04 06:56] LABS: BASOPHIL # 0.1 10^3/ul (0.0-0.1); BASOPHILS % 0.5 % (0.0-2.0); EOSINOPHILS # 0.1 10^3/ul (0.0-0.5); EOSINOPHILS % 0.8 % (0.0-7.0); HEMATOCRIT 26.5 % (37.0-47.0); HEMOGLOBIN 8.5 g/dl (12.0-16.0); LYMPHOCYTES # 1.8 10^3/ul (0.8-2.9); LYMPHOCYTES % 13.2 % (15.0-51.0); MEAN CORPUSCULAR HEMOGLOBIN 32.4 pg (29.0-33.0); MEAN CORPUSCULAR VOLUME 101.2 fl (82.0-101.0); MEAN PLATELET VOLUME 7.4 fl (7.4-10.4); NEUTROPHIL # 10.9 10^3/ul (1.6-7.5); NEUTROPHILS % 78.5 % (39.0-77.0); PLATELET COUNT 226 10^3/UL (140-440); RED BLOOD COUNT 2.62 10^6/ul (4.20-5.40); RED CELL DISTRIBUTION WIDTH 18.9 % (11.5-14.5); UNCORRECTED WBC 13.9 10^3/ul (4.8-10.8); WHITE BLOOD COUNT 13.9 10^3/ul (4.8-10.8)
[2016-11-04 06:57] LABS: CREATININE 1.18 mg/dl (0.44-1.00)
[2016-11-04 06:58] LABS: CALCIUM 8.7 mg/dl (8.4-10.2); PHOSPHORUS 3.2 mg/dl (2.5-4.9)
[2016-11-04 07:35] LABS: CONDITION 1; LH ANALYZER COMMENTS 1
[2016-11-04] MEDS: COLLAGENASE 30 GM TUBE TOP SCH (08:31)
[2016-11-04] MEDS: MUPIROCIN 2% 22 GM OINT TOP SCH ×2 (08:31→22:04)
[2016-11-04] MEDS: APIXABAN 5 MG TABLET GTB SCH ×2 (08:31→21:58)
[2016-11-04] MEDS: LEVETIRACETAM IV 500 MG in DEXTROSE 5% 100 ML IVPB SCH ×2 (08:31→21:59)
[2016-11-04] MEDS: HYDROCORTISONE 1% 28 GM CR TOP SCH ×2 (08:32→22:05)
[2016-11-04] MEDS: PRAMOXINE 1% 15 GM RECT FOAM PR SCH ×3 (08:32→21:00)
[2016-11-04] MEDS: BUDESONIDE (NEB) 0.5MG/2ML AMP HHN SCH ×2 (08:58→19:54)
--- NOTE | 2016-11-04 10:10 | CONS ---
Date/Time of Note Date/Time of Note DATE: 11/04/16 TIME: 10:09 Assessment/Plan Assessment/Plan Additional Assessment/Plan Additional Assessment/Plan ASSESSMENT: 1. Renal failure on dialysis. 2. Vent dependent respiratory failure. 3. Chronic obstructive pulmonary disease. 4. Atrial fibrillation. 5. Ascites, successful paracentesis done. 6. Dysphagia 7. G-tube clean,no leakage,tolerating feeding 50 cc/hr,diabetasource 8. Anemia: stable, likely from anemia of chronic disease 9. Status post septic shock. 10. Diabetes mellitus. 11. Decubitus ulcer. 12. Congestive heart failure. 13. Seizure disorder. 14. pneumonia,s/p sepsis 15.pulmonary hypertension 16 persistent leucocytosis,better 17.pressure ulcer g tube site,healed Plan continue antibiotics per ID Reglan for gastroparesis. G-tube site ,no leakage of formula,or even ascites fluid continue present care discussed with family Consultation Date/Type/Reason Admit Date/Time Sep 17, 2016 at 18:49 Type of Consultation: ID 24 HR Interval Summary Constitutional: no complaints Exam/Review of Systems Vital Signs Vitals Vital Signs Date Time Temp Pulse Resp B/P Pulse Ox O2 Delivery O2 Flow Rate FiO2 11/04/16 09:01 89 89 99 40 11/04/16 08:03 97.7 107/49 Intake and Output 11/03/16 11/03/16 11/04/16 15:00 23:00 07:00 Intake Total 1305 ml 1100 ml Output Total 2000 ml Balance -695 ml 1100 ml Exam Constitutional: alert, oriented, well developed Psych: nl mood/affect, no complaints Head: atraumatic, normocephalic Eyes: EOMI, PERRL, nl conjunctiva, nl lids, nl sclera ENMT: nl external ears & nose, nl lips & teeth, nl nasal mucosa & septum Neck: non-tender, supple Respiratory: clear to auscultation, normal air movement Cardiovascular: nl pulses, regular rate and rhythm Gastrointestinal: nl liver, spleen, non-tender, soft Musculoskeletal: nl extremities to inspection, nl gait and stance Extremities: normal pulses Neurological: MACHINE LEARNING INTERN II-XII intact, nl mental status, nl speech, nl strength Skin: nl turgor, No rash or lesions Lymph: nl lymph nodes Results Result Diagram: 11/04/1645 11/04/16544 Results 24 hrs Laboratory Tests Test 11/03/16 13:40 11/03/16 15:39 11/04/16 05:45 Vancomycin Level Trough 11.8 Basophils # 0.0 0.1 Basophils % 0.4 0.5 Blood Morphology Comment Eosinophils # 0.1 0.1 Eosinophils % 0.6 0.8 Hematocrit 25.1 L 26.5 L Hemoglobin 8.0 L 8.5 L Lymphocytes # 1.2 1.8 Lymphocytes % 10.8 L 13.2 L Mean Corpuscular Hemoglobin 31.9 32.4 Mean Corpuscular Hemoglobin Concent 31.8 L 32.0 Mean Corpuscular Volume 100.3 101.2 H Mean Platelet Volume 6.2 L 7.4 Monocytes # 0.8 1.0 H Monocytes % 7.4 7.0 Neutrophils # 8.7 H 10.9 H Neutrophils % 80.8 H 78.5 H Nucleated Red Blood Cells # 0.0 0.0 Nucleated Red Blood Cells % 0.0 0.0 Platelet Count 235 226 Red Blood Count 2.50 L 2.62 L Red Cell Distribution Width 19.1 H 18.9 H White Blood Count 10.8 # 13.9 #H Anion Gap 13 Blood Urea Nitrogen 37 H Calcium Level 8.7 Carbon Dioxide Level 32 H Chloride Level 96 L Creatinine 1.18 H Glucose Level 101 Magnesium Level 2.0 Phosphorus Level 3.2 Potassium Level 4.4 Sodium Level 137 Medications Medications Current Medications Levetiracetam/ Dextrose (Keppra Iv/D5W) 105 ml @ 420 mls/hr Q12 IVPB Last administered on 11/04/16at 08:31; Admin Dose 420 MLS/HR; Start 09/18/16 at 09: 00 Collagenase (Santyl) 1 applic DAILY TOP Last administered on 11/04/16at 08:31; Admin Dose 1 APPLIC; Start 09/18/16 at 09:00 Acetaminophen (Tylenol Liquid) 650 mg Q4H PRN NGT PAIN AND OR ELEVATED TEMP Last administered on 09/29/16at 12:07; Admin Dose 650 MG; Start 09/18/16 at 08: 00 Bisacodyl (Dulcolax Supp) 10 mg DAILY PRN [place] CONSTIPATION; Start 09/18/16 at 08:00 Mupirocin (Bactroban) Apply to bilateral nares ... BID TOP Last administered on 11/04/16 08:31; Admin Dose 1 APPLIC; Start 09/18/16 at 09:00 Mirtazapine (Remeron) 7.5 mg HS GTB Last administered on 11/03/16at 21:16; Admin Dose 7.5 MG; Start 09/18/16 at 21:00 Ondansetron HCl (Zofran Inj) 4 mg Q4H PRN IV NAUSEA AND/OR VOMITING; Start 08/24 at 08:00 Morphine Sulfate (morphine) 2 mg Q3H PRN IV PAIN LEVEL 6-10 Last administered on 09/28/16 12:25; Admin Dose 2 MG; Start 09/18/16 at 08:00 Lorazepam (Ativan) 0.5 mg Q3H PRN IV ANXIETY; Start 09/18/16 at 08:00 IV Flush (NS 10 ml) 10 ml PRN PRN IV IV PROTOCOL Last administered on 06:01; Admin Dose 10 ML; Start 09/18/16 at 13:00 Lansoprazole (Prevacid) 30 mg DAILY@06 PO Last administered on 11/04/16 05:25 ; Admin Dose 30 MG; Start 09/27/16 at 06:00 Apixaban (Eliquis) 2.5 mg BID GTB Last administered on 11/04/16 08:31; Admin Dose 2.5 MG; Start 09/30/16 at 09:00; Status Future hold Metoclopramide HCl (Reglan) 5 mg Q6 IV Last administered on 11/04/16 05:25; Admin Dose 5 MG; Start 09/30/16 at 12:00 Sildenafil Citrate (Revatio) 20 mg TID GTB Last administered on 11/04/16 08: 31; Admin Dose 20 MG; Start 10/08/16 at 10:45 Pramoxine HCl (Proctofoam 1%) 1 applic TID [place] Last administered on 11/04/16 08:32; Admin Dose 1 APPLIC; Start 10/10/16 at 21:00 Hydrocortisone (Hydrocortisone 1% Cr) 1 applic BID TOP Last administered on 08:32; Admin Dose 1 APPLIC; Start 10/30/16 at 15:30 Diphenhydramine HCl 25 mg 25 mg Q8H PRN PO ITCHING; Start 10/30/16 at 15:00 Vancomycin HCl/ Sodium Chloride (Vancocin/NS) 250 ml @ 83.333 mls/ hr Q96H IVPB ; Start 11/07/16 at 06:00 ANNABEL CISSE MD Nov 04, 2016 10:10
--- NOTE | 2016-11-04 10:36 | PN ---
DATE: SUBJECTIVE: The patient is stable. No acute events overnight. No fever, chills, nausea or vomitin g. The patient had hemodialysis yesterday and tolerated well. OBJECTIVE: VITAL SIGNS: Blood pressure 107/49, respirations 17, pulse 89 and temperature 97.7. HEENT: Head is normocephalic. NECK: Supple. HEART: Regular rate. LUNGS: Show diminished breath sounds at base. ABDOMEN: Soft, nontender to palpation. No rebound or guarding. EXTREMITIES: Negative for clubbing, cyanosis and no edema. DERMATOLOGIC: No rashes. MUSCULOSKELETAL: No joint effusions. NEUROLOGIC: No change in exam. MEDICATIONS: The patient's medications have been reviewed. LABORATORY DATA: Showed sodium 137, potassium 4.4, chloride 96, BUN 37 and creatinine 1.18. White count 13.9, hemoglobin 8.5, hematocrit 36.5 and platelet count is 226. ASSESSMENT AND PLAN: 1. Sepsis secondary to bacteremia and pneumonia. The patient's PICC line was discontinued. Feli fountain finishing a course of vancomycin. Continue to monitor. 2. End-stage renal disease. The patient had hemodialysis yesterday and tolerated well. Plan for d ialysis tomorrow. 3. Hyponatremia secondary to end-stage renal disease, improved. Continue to limit free water intak e. 4. Abdominal ascites secondary to congestive heart failure with end-stage renal disease. Continue ultrafiltration with dialysis. We will continue intermittent paracentesis as needed. 5. Pulmonary hypertension. Continue sildenafil. 6. Decubitus wound. Will continue wound care. 7. Anemia. Continue to monitor hemoglobin and hematocrit levels. Continue Epogen. 8. Seizure disorder. Continue Keppra. 9. Dysphagia . Continue tube feeding. 10. Ventilatory dependent respiratory failure. Vent settings reviewed. Continue to monitor. Foll ow up with pulmonary. 11. Atrial fibrillation, rate controlled. Continue medical management. 12. Encephalopathy. No change. 13. Gastrointestinal and deep venous thrombosis prophylaxis. Continue proton pump inhibitor and El iquis. DISPOSITION: Pending. Patient is pending transfer to subacute facility when bed available. Dictated By: RUDDY BUSTILLOS/ARNOLDO Conf#: [id number] DID#: [id number]
--- NOTE | 2016-11-04 12:01 | PN ---
DATE: 11/04/2016 CARDIOLOGY FOLLOWUP SUBJECTIVE: No new cardiac symptoms. The patient remains in atrial fibrillation. Heart rate overa ll has been stable. No chest pain or pressure. No palpitation remains on the vent, status post tra cheostomy. MEDICATIONS: Reviewed. PHYSICAL EXAMINATION: VITAL SIGNS: Temperature 98.1, heart rate of 75, blood pressure 96/46, respiration rate of 16, satu rating 96%. HEENT: Normocephalic, atraumatic. Elderly female. Status post tracheostomy, on the vent. CARDIOVASCULAR: Irregularly irregular. Systolic murmur and diastolic murmur. PULMONARY: With mild rhonchi, diffuse. GASTROINTESTINAL: Soft, nontender. EXTREMITIES: Positive edema. NEUROLOGIC: Awake, responds appropriately. PSYCHIATRIC: Appeared to be calm and pleasant but depressed mood. LABORATORY: WBC of 13.9, hemoglobin 8.5, platelet 226. Sodium 137, potassium is 4.4, BUN of 37, cr eatinine 1.18, glucose 101. ASSESSMENT AND PLAN: 1. Hypoxemia and respiratory failure, status post tracheostomy, vent dependent. 2. Atrial fibrillation, chronic. 3. Pulmonary hypertension, possible ASD. 4. Status post sepsis and pneumonia and shock. Currently, blood pressure has improved. 5. Renal failure on dialysis. 6. Anemia. RECOMMENDATIONS: Continue to monitor on telemetry. Respiratory care and vent support will be leena nued. Antibiotic is managed as per ID. Heart rate control will be continued. Currently stable, bu t will give digoxin if needed on a very low dose. Dictated By: AMANDA PINTO MD AV/ARNOLDO Conf#: [id number] DID#: [id number] CC: RUDDY GEE DO;*EndCC*
--- NOTE | 2016-11-04 15:04 | CONS ---
Date/Time of Note Date/Time of Note DATE: 11/04/16 TIME: 15:03 Consult Date/Type/Reason Admit Date/Time Sep 17, 2016 at 18:49 Type of Consultation: ID Subjective lying comfortably in bed, no fevers Objective Vital Signs Date Time Temp Pulse Resp B/P Pulse Ox O2 Delivery O2 Flow Rate FiO2 11/04/16 14:56 98.5 99 16 118/49 97 11/04/16 13:05 40 Intake and Output 11/03/16 11/03/16 11/04/16 15:00 23:00 07:00 Intake Total 1305 ml 1100 ml Output Total 2000 ml Balance -695 ml 1100 ml Results/Medications Result Diagram: 11/04/16 0545 11/04/16 0545 Results 24 hrs Laboratory Tests Test 11/03/16 15:39 11/04/16 05:45 Basophils # 0.0 0.1 Basophils % 0.4 0.5 Blood Morphology Comment Eosinophils # 0.1 0.1 Eosinophils % 0.6 0.8 Hematocrit 25.1 L 26.5 L Hemoglobin 8.0 L 8.5 L Lymphocytes # 1.2 1.8 Lymphocytes % 10.8 L 13.2 L Mean Corpuscular Hemoglobin 31.9 32.4 Mean Corpuscular Hemoglobin Concent 31.8 L 32.0 Mean Corpuscular Volume 100.3 101.2 H Mean Platelet Volume 6.2 L 7.4 Monocytes # 0.8 1.0 H Monocytes % 7.4 7.0 Neutrophils # 8.7 H 10.9 H Neutrophils % 80.8 H 78.5 H Nucleated Red Blood Cells # 0.0 0.0 Nucleated Red Blood Cells % 0.0 0.0 Platelet Count 235 226 Red Blood Count 2.50 L 2.62 L Red Cell Distribution Width 19.1 H 18.9 H White Blood Count 10.8 # 13.9 #H Anion Gap 13 Blood Urea Nitrogen 37 H Calcium Level 8.7 Carbon Dioxide Level 32 H Chloride Level 96 L Creatinine 1.18 H Glucose Level 101 Magnesium Level 2.0 Phosphorus Level 3.2 Potassium Level 4.4 Sodium Level 137 Medications Current Medications Levetiracetam/ Dextrose (Keppra Iv/D5W) 105 ml @ 420 mls/hr Q12 IVPB Last administered on 11/04/16at 08:31; Admin Dose 420 MLS/HR; Start 09/18/16 at 09: 00 Collagenase (Santyl) 1 applic DAILY TOP Last administered on 11/04/16at 08:31; Admin Dose 1 APPLIC; Start 09/18/16 at 09:00 Acetaminophen (Tylenol Liquid) 650 mg Q4H PRN NGT PAIN AND OR ELEVATED TEMP Last administered on 09/29/16at 12:07; Admin Dose 650 MG; Start 09/18/16 at 08: 00 Bisacodyl (Dulcolax Supp) 10 mg DAILY PRN [place] CONSTIPATION; Start 09/18/16 at 08:00 Mupirocin (Bactroban) Apply to bilateral nares ... BID TOP Last administered on 11/04/16at 08:31; Admin Dose 1 APPLIC; Start 09/18/16 at 09:00 Mirtazapine (Remeron) 7.5 mg HS GTB Last administered on 11/03/16at 21:16; Admin Dose 7.5 MG; Start 09/18/16 at 21:00 Ondansetron HCl (Zofran Inj) 4 mg Q4H PRN IV NAUSEA AND/OR VOMITING; Start 08/24 at 08:00 Morphine Sulfate (morphine) 2 mg Q3H PRN IV PAIN LEVEL 6-10 Last administered on 09/28/16at 12:25; Admin Dose 2 MG; Start 09/18/16 at 08:00 Lorazepam (Ativan) 0.5 mg Q3H PRN IV ANXIETY; Start 09/18/16 at 08:00 IV Flush (NS 10 ml) 10 ml PRN PRN IV IV PROTOCOL Last administered on at 06:01; Admin Dose 10 ML; Start 09/18/16 at 13:00 Lansoprazole (Prevacid) 30 mg DAILY@06 PO Last administered on 11/04/16at 05:25 ; Admin Dose 30 MG; Start 09/27/16 at 06:00 Apixaban (Eliquis) 2.5 mg BID GTB Last administered on 11/04/16at 08:31; Admin Dose 2.5 MG; Start 09/30/16 at 09:00; Status Future hold Metoclopramide HCl (Reglan) 5 mg Q6 IV Last administered on 11/04/16at 11:23; Admin Dose 5 MG; Start 09/30/16 at 12:00 Sildenafil Citrate (Revatio) 20 mg TID GTB Last administered on 11/04/16at 08: 31; Admin Dose 20 MG; Start 10/08/16 at 10:45 Pramoxine HCl (Proctofoam 1%) 1 applic TID [place] Last administered on 11/04/16at 11:24; Admin Dose 1 APPLIC; Start 10/10/16 at 21:00 Hydrocortisone (Hydrocortisone 1% Cr) 1 applic BID TOP Last administered on at 08:32; Admin Dose 1 APPLIC; Start 10/30/16 at 15:30 Diphenhydramine HCl 25 mg 25 mg Q8H PRN PO ITCHING; Start 10/30/16 at 15:00 Vancomycin HCl/ Sodium Chloride (Vancocin/NS) 250 ml @ 83.333 mls/ hr Q96H IVPB ; Start 11/07/16 at 06:00 Assessment/Plan Chief Complaint/Hosp Course INDWELLING: trach, PEG, RIJ Perm-A-Cath Micro: 10/21 Bld cx + Staph species Abx: Vanco PHYSICAL EXAMINATION: GENERAL: Fragile, chronically ill-appearing, elderly woman who is lying comfortably in bed. HEENT: Head atraumatic, normocephalic. Sclerae anicteric. Buccal mucosa dry. NECK: Supple. Tracheostomy present. CHEST: Rise symmetrical. Breath sounds diminished to bases. HEART: S1, S2. ABDOMEN: Soft, bowel tones present. EXTREMITIES: Without cyanosis. ASSESSMENT: 1. Status post septic shock shock. 2. GPC septicemia===> PICC dc'd 2. S/p healthcare-associated pneumonia with parapneumonic pleural effusion and sputum culture growing multi-drug resistant Pseudomonas aeruginosa. 3. Methicillin-resistant Staphylococcus aureus infected decubitus. 4. S/p joe glabrata urinary tract infection. 5. Methicillin-resistant Staphylococcus aureus nares colonization. 6. End-stage renal disease, hemodialysis dependent. 7. History of cerebrovascular accident. 8. Recurrent ascites==> s/p paracentesis 09/24, 10/14 9. ALLERGY TO PENICILLIN AND SULFA. PLAN: Clinically unchanged, repeat bld cx negative, continue Vanco for 5 more days, may need paracentesis VINAY RN Problems: RAISSA ROA NP Nov 04, 2016 15:03
[2016-11-04] MEDS: LORAZEPAM 2 MG INJ IV PRN (20:12)
[2016-11-04] MEDS: MIRTAZAPINE 15 MG TAB GTB SCH (21:58)
[2016-11-05] VITALS (28 sets, daily range): BP systolic 98–132; BP diastolic 39–70; PULSE 93–111; RESP 13–20
[2016-11-05] MEDS: METOCLOPRAMIDE 10 MG INJ IV SCH ×4 (00:25→18:00)
[2016-11-05] MEDS ORDERED: VITAMIN A & D 5 GM OINT PACKET TOP ONE (00:43)
[2016-11-05] MEDS: IPRATROPIUM (HFA) 12.9 GM INHALER INH SCH ×6 (01:49→20:00)
[2016-11-05] MEDS: LEVALBUTEROL (HFA) 15 GM INHALER INH SCH ×6 (01:49→20:00)
[2016-11-05] MEDS: LANSOPRAZOLE 30 MG CAP PO SCH (04:36)
[2016-11-05] MEDS: morphine 2 MG INJ IV PRN (04:47)
[2016-11-05 07:43] LABS: BASOPHIL # 0.1 10^3/ul (0.0-0.1); BASOPHILS % 0.8 % (0.0-2.0); EOSINOPHILS # 0.1 10^3/ul (0.0-0.5); EOSINOPHILS % 1.2 % (0.0-7.0); HEMATOCRIT 25.4 % (37.0-47.0); HEMOGLOBIN 8.2 g/dl (12.0-16.0); LYMPHOCYTES # 1.4 10^3/ul (0.8-2.9); LYMPHOCYTES % 12.1 % (15.0-51.0); MEAN CORPUSCULAR HEMOGLOBIN 32.5 pg (29.0-33.0); MEAN CORPUSCULAR HGB CONC 32.3 g/dl (32.0-37.0); MEAN CORPUSCULAR VOLUME 100.6 fl (82.0-101.0); MEAN PLATELET VOLUME 7.7 fl (7.4-10.4); MONOCYTE # 0.7 10^3/ul (0.3-0.9); MONOCYTES % 5.9 % (0.0-11.0); PLATELET COUNT 228 10^3/UL (140-440); RED BLOOD COUNT 2.52 10^6/ul (4.20-5.40); RED CELL DISTRIBUTION WIDTH 18.5 % (11.5-14.5); UNCORRECTED WBC 11.3 10^3/ul (4.8-10.8); WHITE BLOOD COUNT 11.3 10^3/ul (4.8-10.8)
[2016-11-05 07:44] LABS: POTASSIUM 4.8 mmol/L (3.5-5.1)
[2016-11-05 07:47] LABS: CONDITION 1; CREATININE 1.49 mg/dl (0.44-1.00); LH ANALYZER COMMENTS 1; PHOSPHORUS 3.5 mg/dl (2.5-4.9)
[2016-11-05 07:48] LABS: CALCIUM 8.7 mg/dl (8.4-10.2)
[2016-11-05] MEDS: APIXABAN 5 MG TABLET GTB SCH ×2 (08:29→22:23)
[2016-11-05] MEDS ORDERED: DIGOXIN 500 MCG INJ IV ONE (08:30)
[2016-11-05] MEDS: COLLAGENASE 30 GM TUBE TOP SCH (08:31)
[2016-11-05] MEDS: HYDROCORTISONE 1% 28 GM CR TOP SCH ×2 (08:32→22:23)
[2016-11-05] MEDS: MUPIROCIN 2% 22 GM OINT TOP SCH ×2 (08:32→22:23)
[2016-11-05] MEDS: LEVETIRACETAM IV 500 MG in DEXTROSE 5% 100 ML IVPB SCH ×2 (08:36→22:22)
[2016-11-05] MEDS: PRAMOXINE 1% 15 GM RECT FOAM PR SCH ×3 (09:00→22:00)
[2016-11-05] MEDS: SILDENAFIL 20 MG TAB GTB SCH ×3 (09:00→23:04)
[2016-11-05] MEDS: BUDESONIDE (NEB) 0.5MG/2ML AMP HHN SCH ×2 (09:22→20:00)
--- NOTE | 2016-11-05 11:08 | PN ---
DATE: 11/05/2016 SUBJECTIVE: The patient is stable, no acute events overnight. No fevers, chills, nausea, vomiting, no shortness of breath. OBJECTIVE: VITAL SIGNS: Blood pressure 132/70, respirations 15, pulse 117, temperature 98.6. HEENT: Head is normocephalic. NECK: Supple. HEART: Regular rate. LUNGS: Show diminished breath sounds at base. ABDOMEN: Soft, nontender to palpation. No rebound or guarding. Mild distention. EXTREMITIES: Negative for clubbing, cyanosis, no edema. DERMATOLOGIC: No rashes. MUSCULOSKELETAL: No joint effusions. NEUROLOGIC: No change in exam. MEDICATIONS: The patient's medications have been reviewed. LABORATORY DATA: Shows sodium 137, potassium 4.5, chloride 96, BUN 15, creatinine 1.49. White coun t 11.3, hemoglobin 8.2, hematocrit 35.4, platelet count 228. ASSESSMENT AND PLAN: 1. Sepsis secondary to bacteremia and pneumonia. The patient is currently on vancomycin and comple ting course. 2. End-stage renal disease. Plan for hemodialysis today for 3 hours, 3K bath, calcium 2.5, will ul trafiltrate as tolerated. 3. Hyponatremia secondary to end-stage renal disease, improved. 4. Abdominal ascites secondary to congestive heart failure and end-stage renal disease. Continue u ltrafiltration dialysis. Continue intermittent paracentesis as needed. We will defer to GI. 5. Pulmonary hypertension. Continue sildenafil. 6. Decubitus wound. Continue wound care. 7. Anemia. Continue to monitor hemoglobin and hematocrit levels. Continue Epogen. 8. Seizure disorder. Continue Keppra. 9. Dysphagia, status post percutaneous endoscopic gastrostomy. Continue tube feeding. 10. Ventilator dependent respiratory failure. Vent settings have been reviewed. Continue to monit or. Follow up with pulmonary. 11. Atrial fibrillation, rate controlled. Continue medical management. 12. Encephalopathy. No change. 13. Gastrointestinal and deep vein thrombosis prophylaxis. Continue proton pump inhibitor and Eliq uis. 14. Disposition. The patient is pending possible transfer to subacute facility when bed is availab le. Dictated By: RUDDY BUSTILLOS/NTS Conf#: [id number] DID#: [id number]
[2016-11-05 11:29] LABS: HAAIG REFLEX REFLEX FILED
[2016-11-05] MEDS: ALBUMIN HUMAN 25% 100 ML IV PRN (12:12)
[2016-11-05 12:28] LABS: HEPATITIS B CORE ANTIBODY NEGATIVE (NEGATIVE)
--- NOTE | 2016-11-05 14:37 | CONS ---
Date/Time of Note Date/Time of Note DATE: 11/05/16 TIME: 14:36 Consult Date/Type/Reason Admit Date/Time Sep 17, 2016 at 18:49 Type of Consultation: ID Subjective in HD, lethargic, no fevers, nad Objective Vital Signs Date Time Temp Pulse Resp B/P Pulse Ox O2 Delivery O2 Flow Rate FiO2 11/05/16 13:30 95 14 11/05/16 13:00 100 40 11/05/16 11:58 98.6 120/67 Intake and Output 11/04/16 11/04/16 11/05/16 15:00 23:00 07:00 Intake Total 755 ml 650 ml Balance 755 ml 650 ml Results/Medications Result Diagram: 11/05/1670511/05/16 07 Results 24 hrs Laboratory Tests Test 11/05/16 07:06 Anion Gap 12 Basophils # 0.1 Basophils % 0.8 Blood Morphology Comment Blood Urea Nitrogen 50 H Calcium Level 8.7 Carbon Dioxide Level 34 H Chloride Level 96 L Creatinine 1.49 H Eosinophils # 0.1 Eosinophils % 1.2 Glucose Level 100 Hematocrit 25.4 L Hemoglobin 8.2 L Hepatitis B Core Total Antibody NEGATIVE Hepatitis B Surface Antigen NEGATIVE Hepatitis C Antibody NEGATIVE Lymphocytes # 1.4 Lymphocytes % 12.1 L Magnesium Level 2.0 Mean Corpuscular Hemoglobin 32.5 Mean Corpuscular Hemoglobin Concent 32.3 Mean Corpuscular Volume 100.6 Mean Platelet Volume 7.7 Monocytes # 0.7 Monocytes % 5.9 Neutrophils # 9.0 H Neutrophils % 80.0 H Nucleated Red Blood Cells # 0.0 Nucleated Red Blood Cells % 0.0 Phosphorus Level 3.5 Platelet Count 228 Potassium Level 4.8 Red Blood Count 2.52 L Red Cell Distribution Width 18.5 H Sodium Level 137 White Blood Count 11.3 H Medications Current Medications Levetiracetam/ Dextrose (Keppra Iv/D5W) 105 ml @ 420 mls/hr Q12 IVPB Last administered on 11/05/16at 08:36; Admin Dose 420 MLS/HR; Start 09/18/16 at 09: 00 Collagenase (Santyl) 1 applic DAILY TOP Last administered on 11/05/16at 08:31; Admin Dose 1 APPLIC; Start 09/18/16 at 09:00 Acetaminophen (Tylenol Liquid) 650 mg Q4H PRN NGT PAIN AND OR ELEVATED TEMP Last administered on 09/29/16 12:07; Admin Dose 650 MG; Start 09/18/16 at 08: 00 Bisacodyl (Dulcolax Supp) 10 mg DAILY PRN [place] CONSTIPATION; Start 09/18/16 at 08:00 Mupirocin (Bactroban) Apply to bilateral nares ... BID TOP Last administered on 11/05/16 08:32; Admin Dose 2 APPLIC; Start 09/18/16 at 09:00 Mirtazapine (Remeron) 7.5 mg HS GTB Last administered on 11/04/16 21:58; Admin Dose 7.5 MG; Start 09/18/16 at 21:00 Ondansetron HCl (Zofran Inj) 4 mg Q4H PRN IV NAUSEA AND/OR VOMITING; Start 08/24 at 08:00 Morphine Sulfate (morphine) 2 mg Q3H PRN IV PAIN LEVEL 6-10 Last administered on 11/05/16 04:47; Admin Dose 2 MG; Start 09/18/16 at 08:00 Lorazepam (Ativan) 0.5 mg Q3H PRN IV ANXIETY Last administered on 11/04/16 20 :12; Admin Dose 0.5 MG; Start 09/18/16 at 08:00 IV Flush (NS 10 ml) 10 ml PRN PRN IV IV PROTOCOL Last administered on 06:01; Admin Dose 10 ML; Start 09/18/16 at 13:00 Lansoprazole (Prevacid) 30 mg DAILY@06 PO Last administered on 11/05/16at 04:36 ; Admin Dose 30 MG; Start 09/27/16 at 06:00 Apixaban (Eliquis) 2.5 mg BID GTB Last administered on 11/05/16 08:29; Admin Dose 2.5 MG; Start 09/30/16 at 09:00; Status Future hold Metoclopramide HCl (Reglan) 5 mg Q6 IV Last administered on 11/05/16 12:54; Admin Dose 5 MG; Start 09/30/16 at 12:00 Sildenafil Citrate (Revatio) 20 mg TID GTB Last administered on 11/04/16 21: 59; Admin Dose 20 MG; Start 10/08/16 at 10:45 Pramoxine HCl (Proctofoam 1%) 1 applic TID [place] Last administered on 11/04/16at 11:24; Admin Dose 1 APPLIC; Start 10/10/16 at 21:00 Hydrocortisone (Hydrocortisone 1% Cr) 1 applic BID TOP Last administered on at 08:32; Admin Dose 1 APPLIC; Start 10/30/16 at 15:30 Diphenhydramine HCl 25 mg 25 mg Q8H PRN PO ITCHING; Start 10/30/16 at 15:00 Vancomycin HCl/ Sodium Chloride (Vancocin/NS) 250 ml @ 83.333 mls/ hr Q96H IVPB ; Start 11/07/16 at 06:00 Assessment/Plan Chief Complaint/Hosp Course INDWELLING: trach, PEG, RIJ Perm-A-Cath Micro: 10/21 Bld cx + Staph species Abx: Vanco PHYSICAL EXAMINATION: GENERAL: Fragile, chronically ill-appearing, elderly woman who is lying comfortably in bed. HEENT: Head atraumatic, normocephalic. Sclerae anicteric. Buccal mucosa dry. NECK: Supple. Tracheostomy present. CHEST: Rise symmetrical. Breath sounds diminished to bases. HEART: S1, S2. ABDOMEN: Soft, bowel tones present. EXTREMITIES: Without cyanosis. ASSESSMENT: 1. Status post septic shock shock. 2. GPC septicemia===> PICC dc'd 2. S/p healthcare-associated pneumonia with parapneumonic pleural effusion and sputum culture growing multi-drug resistant Pseudomonas aeruginosa. 3. Methicillin-resistant Staphylococcus aureus infected decubitus. 4. S/p joe glabrata urinary tract infection. 5. Methicillin-resistant Staphylococcus aureus nares colonization. 6. End-stage renal disease, hemodialysis dependent. 7. History of cerebrovascular accident. 8. Recurrent ascites==> s/p paracentesis 09/24, 10/14 9. ALLERGY TO PENICILLIN AND SULFA. PLAN: Clinically unchanged, wbc stable, continue Vanco for 4 more days, may need paracentesis DW LULA Problems: RAISSA ROA NP Nov 05, 2016 14:37
--- NOTE | 2016-11-05 16:08 | CONS ---
Date/Time of Note Date/Time of Note DATE: 11/05/16 TIME: 16:07 Consult Date/Type/Reason Admit Date/Time Sep 17, 2016 at 18:49 Type of Consultation: pulmonary Subjective Remains minimally responsive on mechanical ventilation Objective Vital Signs Date Time Temp Pulse Resp B/P Pulse Ox O2 Delivery O2 Flow Rate FiO2 11/05/16 15:59 97.5 90 20 115/52 100 11/05/16 15:00 40 Intake and Output 11/04/16 11/04/16 11/05/16 15:00 23:00 07:00 Intake Total 755 ml 650 ml Balance 755 ml 650 ml PHYSICAL EXAMINATION GENERAL: Elderly lady on mechanical ventilation comfortable VITAL SIGNS: see below. HEENT: Pupils equal, round, and reactive to light. Tracheostomy site clean and intact. CARDIAC: S1, S2 CHEST: Diminished air entry bilaterally. ABDOMEN: Mildly distended. Decreased bowel sounds EXTREMITIES: No cyanosis, clubbing edema +1 NEUROLOGIC: Unable to assess Results/Medications Result Diagram: 11/05/16 0706 11/05/16 0706 Results 24 hrs Laboratory Tests Test 11/05/16 07:06 Anion Gap 12 Basophils # 0.1 Basophils % 0.8 Blood Morphology Comment Blood Urea Nitrogen 50 H Calcium Level 8.7 Carbon Dioxide Level 34 H Chloride Level 96 L Creatinine 1.49 H Eosinophils # 0.1 Eosinophils % 1.2 Glucose Level 100 Hematocrit 25.4 L Hemoglobin 8.2 L Hepatitis B Core Total Antibody NEGATIVE Hepatitis B Surface Antigen NEGATIVE Hepatitis C Antibody NEGATIVE Lymphocytes # 1.4 Lymphocytes % 12.1 L Magnesium Level 2.0 Mean Corpuscular Hemoglobin 32.5 Mean Corpuscular Hemoglobin Concent 32.3 Mean Corpuscular Volume 100.6 Mean Platelet Volume 7.7 Monocytes # 0.7 Monocytes % 5.9 Neutrophils # 9.0 H Neutrophils % 80.0 H Nucleated Red Blood Cells # 0.0 Nucleated Red Blood Cells % 0.0 Phosphorus Level 3.5 Platelet Count 228 Potassium Level 4.8 Red Blood Count 2.52 L Red Cell Distribution Width 18.5 H Sodium Level 137 White Blood Count 11.3 H Medications Current Medications Levetiracetam/ Dextrose (Keppra Iv/D5W) 105 ml @ 420 mls/hr Q12 IVPB Last administered on 11/05/16at 08:36; Admin Dose 420 MLS/HR; Start 09/18/16 at 09: 00 Collagenase (Santyl) 1 applic DAILY TOP Last administered on 11/05/16 08:31; Admin Dose 1 APPLIC; Start 09/18/16 at 09:00 Acetaminophen (Tylenol Liquid) 650 mg Q4H PRN NGT PAIN AND OR ELEVATED TEMP Last administered on 09/29/16at 12:07; Admin Dose 650 MG; Start 09/18/16 at 08: 00 Bisacodyl (Dulcolax Supp) 10 mg DAILY PRN [place] CONSTIPATION; Start 09/18/16 at 08:00 Mupirocin (Bactroban) Apply to bilateral nares ... BID TOP Last administered on 11/05/16 08:32; Admin Dose 2 APPLIC; Start 09/18/16 at 09:00 Mirtazapine (Remeron) 7.5 mg HS GTB Last administered on 11/04/16at 21:58; Admin Dose 7.5 MG; Start 09/18/16 at 21:00 Ondansetron HCl (Zofran Inj) 4 mg Q4H PRN IV NAUSEA AND/OR VOMITING; Start 08/24 at 08:00 Morphine Sulfate (morphine) 2 mg Q3H PRN IV PAIN LEVEL 6-10 Last administered on 11/05/16 04:47; Admin Dose 2 MG; Start 09/18/16 at 08:00 Lorazepam (Ativan) 0.5 mg Q3H PRN IV ANXIETY Last administered on 11/04/16at 20 :12; Admin Dose 0.5 MG; Start 09/18/16 at 08:00 IV Flush (NS 10 ml) 10 ml PRN PRN IV IV PROTOCOL Last administered on at 06:01; Admin Dose 10 ML; Start 09/18/16 at 13:00 Lansoprazole (Prevacid) 30 mg DAILY@06 PO Last administered on 11/05/16 04:36 ; Admin Dose 30 MG; Start 09/27/16 at 06:00 Apixaban (Eliquis) 2.5 mg BID GTB Last administered on 11/05/16 08:29; Admin Dose 2.5 MG; Start 09/30/16 at 09:00; Status Future hold Metoclopramide HCl (Reglan) 5 mg Q6 IV Last administered on 12/28/16at 12:54; Admin Dose 5 MG; Start 09/30/16 at 12:00 Sildenafil Citrate (Revatio) 20 mg TID GTB Last administered on 11/04/16at 21: 59; Admin Dose 20 MG; Start 10/08/16 at 10:45 Pramoxine HCl (Proctofoam 1%) 1 applic TID [place] Last administered on 11/04/16at 11:24; Admin Dose 1 APPLIC; Start 10/10/16 at 21:00 Hydrocortisone (Hydrocortisone 1% Cr) 1 applic BID TOP Last administered on at 08:32; Admin Dose 1 APPLIC; Start 10/30/16 at 15:30 Diphenhydramine HCl 25 mg 25 mg Q8H PRN PO ITCHING; Start 10/30/16 at 15:00 Vancomycin HCl/ Sodium Chloride (Vancocin/NS) 250 ml @ 83.333 mls/ hr Q96H IVPB ; Start 11/07/16 at 06:00 Assessment/Plan Chief Complaint/Hosp Course IMPRESSION AND PLAN: 1. Ventilator-dependent respiratory failure. 2. Status post septic shock. 3. Polymicrobial sepsis. Now normal white blood cell count 4. End-stage renal failure on hemodialysis. 5. G tube malfunction / leak PLAN: 1. Continue vent support. 2. Continue ID recommendations. 3. Continue wound care. 4. Continue DVT and GI prophylaxis. 5. GI recs Discharge planning. Problems: JULIA HERNANDEZ MD, [facility] Nov 05, 2016 16:08
--- NOTE | 2016-11-05 16:58 | CONS ---
Date/Time of Note Date/Time of Note DATE: 11/05/16 TIME: 16:57 Assessment/Plan Assessment/Plan Additional Assessment/Plan ASSESSMENT: 1. Renal failure on dialysis. 2. Vent dependent respiratory failure. 3. Chronic obstructive pulmonary disease. 4. Atrial fibrillation. 5. Ascites, successful paracentesis done. 6. Dysphagia 7. G-tube clean,no leakage,tolerating feeding 50 cc/hr,diabetasource 8. Anemia: stable, likely from anemia of chronic disease 9. Status post septic shock. 10. Diabetes mellitus. 11. Decubitus ulcer. 12. Congestive heart failure. 13. Seizure disorder. 14. pneumonia,s/p sepsis 15.pulmonary hypertension 16 persistent leucocytosis,better 17.pressure ulcer g tube site,healed Plan continue antibiotics per DOROTHY Cuevas for gastroparesis. G-tube site ,no leakage of formula,or even ascites fluid continue present care discussed with family Consultation Date/Type/Reason Admit Date/Time Sep 17, 2016 at 18:49 Type of Consultation: pulmonary Exam/Review of Systems Vital Signs Vitals Vital Signs Date Time Temp Pulse Resp B/P Pulse Ox O2 Delivery O2 Flow Rate FiO2 11/05/16 15:59 97.5 90 20 115/52 100 11/05/16 15:00 40 Intake and Output 11/04/16 11/04/16 11/05/16 14:59 22:59 06:59 Intake Total 650 ml 755 ml Balance 650 ml 755 ml Exam Constitutional: alert, oriented, well developed Psych: nl mood/affect, no complaints Head: atraumatic, normocephalic Eyes: EOMI, PERRL, nl conjunctiva, nl lids, nl sclera ENMT: nl external ears & nose, nl lips & teeth, nl nasal mucosa & septum Neck: non-tender, supple Respiratory: clear to auscultation, normal air movement Cardiovascular: nl pulses, regular rate and rhythm Gastrointestinal: nl liver, spleen, non-tender, soft Musculoskeletal: nl extremities to inspection, nl gait and stance Extremities: normal pulses 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, nl mental status, nl speech, nl strength Skin: nl turgor, No rash or lesions Lymph: nl lymph nodes Results Result Diagram: 11/05/16 0706 11/05/16 0706 Results 24 hrs Laboratory Tests Test 11/05/16 07:06 Anion Gap 12 Basophils # 0.1 Basophils % 0.8 Blood Morphology Comment Blood Urea Nitrogen 50 H Calcium Level 8.7 Carbon Dioxide Level 34 H Chloride Level 96 L Creatinine 1.49 H Eosinophils # 0.1 Eosinophils % 1.2 Glucose Level 100 Hematocrit 25.4 L Hemoglobin 8.2 L Hepatitis B Core Total Antibody NEGATIVE Hepatitis B Surface Antigen NEGATIVE Hepatitis C Antibody NEGATIVE Lymphocytes # 1.4 Lymphocytes % 12.1 L Magnesium Level 2.0 Mean Corpuscular Hemoglobin 32.5 Mean Corpuscular Hemoglobin Concent 32.3 Mean Corpuscular Volume 100.6 Mean Platelet Volume 7.7 Monocytes # 0.7 Monocytes % 5.9 Neutrophils # 9.0 H Neutrophils % 80.0 H Nucleated Red Blood Cells # 0.0 Nucleated Red Blood Cells % 0.0 Phosphorus Level 3.5 Platelet Count 228 Potassium Level 4.8 Red Blood Count 2.52 L Red Cell Distribution Width 18.5 H Sodium Level 137 White Blood Count 11.3 H Medications Medications Current Medications Levetiracetam/ Dextrose (Keppra Iv/D5W) 105 ml @ 420 mls/hr Q12 IVPB Last administered on 11/05/16at 08:36; Admin Dose 420 MLS/HR; Start 09/18/16 at 09: 00 Collagenase (Santyl) 1 applic DAILY TOP Last administered on 11/05/16at 08:31; Admin Dose 1 APPLIC; Start 09/18/16 at 09:00 Acetaminophen (Tylenol Liquid) 650 mg Q4H PRN NGT PAIN AND OR ELEVATED TEMP Last administered on 09/29/16at 12:07; Admin Dose 650 MG; Start 09/18/16 at 08: 00 Bisacodyl (Dulcolax Supp) 10 mg DAILY PRN [place] CONSTIPATION; Start 09/18/16 at 08:00 Mupirocin (Bactroban) Apply to bilateral nares ... BID TOP Last administered on 11/05/16at 08:32; Admin Dose 2 APPLIC; Start 09/18/16 at 09:00 Mirtazapine (Remeron) 7.5 mg HS GTB Last administered on 11/04/16at 21:58; Admin Dose 7.5 MG; Start 09/18/16 at 21:00 Ondansetron HCl (Zofran Inj) 4 mg Q4H PRN IV NAUSEA AND/OR VOMITING; Start 08/24 at 08:00 Morphine Sulfate (morphine) 2 mg Q3H PRN IV PAIN LEVEL 6-10 Last administered on 11/05/16 04:47; Admin Dose 2 MG; Start 09/18/16 at 08:00 Lorazepam (Ativan) 0.5 mg Q3H PRN IV ANXIETY Last administered on 11/04/16 20 :12; Admin Dose 0.5 MG; Start 09/18/16 at 08:00 IV Flush (NS 10 ml) 10 ml PRN PRN IV IV PROTOCOL Last administered on 06:01; Admin Dose 10 ML; Start 09/18/16 at 13:00 Lansoprazole (Prevacid) 30 mg DAILY@06 PO Last administered on 11/05/16 04:36 ; Admin Dose 30 MG; Start 09/27/16 at 06:00 Apixaban (Eliquis) 2.5 mg BID GTB Last administered on 11/05/16 08:29; Admin Dose 2.5 MG; Start 09/30/16 at 09:00; Status Future hold Metoclopramide HCl (Reglan) 5 mg Q6 IV Last administered on 11/05/16 12:54; Admin Dose 5 MG; Start 09/30/16 at 12:00 Sildenafil Citrate (Revatio) 20 mg TID GTB Last administered on 11/04/16 21: 59; Admin Dose 20 MG; Start 10/08/16 at 10:45 Pramoxine HCl (Proctofoam 1%) 1 applic TID [place] Last administered on 11/04/16 11:24; Admin Dose 1 APPLIC; Start 10/10/16 at 21:00 Hydrocortisone (Hydrocortisone 1% Cr) 1 applic BID TOP Last administered on 08:32; Admin Dose 1 APPLIC; Start 10/30/16 at 15:30 Diphenhydramine HCl 25 mg 25 mg Q8H PRN PO ITCHING; Start 10/30/16 at 15:00 Vancomycin HCl/ Sodium Chloride (Vancocin/NS) 250 ml @ 83.333 mls/ hr Q96H IVPB ; Start 11/07/16 at 06:00 ANNABEL CISSE MD Nov 05, 2016 16:57
--- NOTE | 2016-11-05 17:06 | RADRPT ---
PROCEDURE: XR Chest. CLINICAL INDICATION: Pneumonia/congestive heart failure TECHNIQUE: Chest AP portable. COMPARISON: 10/01/2016 FINDINGS: Tracheostomy. Right internal jugular tunneled dialysis catheter. The mediastinal structures are unremarkable. There is calcification of the thoracic aorta (consiste nt with atherosclerosis). There is moderate cardiac enlargement. There is mild congestive heart fa ilure. There are RLL and LLL patchy consolidation. There are moderate bilateral pleural effusions. There are senescent changes of the axial skeleton. IMPRESSION: Moderate cardiac enlargement. Mild congestive heart failure. RLL and LLL patchy consolidation. Moderate bilateral pleural effusions. Essentially unchanged from the previous examination RPTAT: [facility]DB .Isaak Loera MD, Date Time Electronically viewed and signed by .Isaak Loera MD, on 11/05/2016 17:06 .B/
[2016-11-05] MEDS: EPOETIN 10000 UNITS/1 ML INJ (ESRD) SC SCH (18:49)
[2016-11-05] MEDS: MIRTAZAPINE 15 MG TAB GTB SCH (22:22)
[2016-11-06] VITALS (25 sets, daily range): BP systolic 90–114; BP diastolic 45–68; PULSE 80–102; RESP 12–19
[2016-11-06] MEDS: METOCLOPRAMIDE 10 MG INJ IV SCH ×4 (00:31→18:44)
[2016-11-06] MEDS: LEVALBUTEROL (HFA) 15 GM INHALER INH SCH ×6 (01:42→21:06)
[2016-11-06] MEDS: IPRATROPIUM (HFA) 12.9 GM INHALER INH SCH ×6 (01:42→21:06)
[2016-11-06] MEDS: LANSOPRAZOLE 30 MG CAP PO SCH (05:45)
--- NOTE | 2016-11-06 06:29 | PN ---
DATE: 11/05/2016 CARDIOLOGY FOLLOWUP SUBJECTIVE: The patient remains in atrial fibrillation. Heart rate has been slightly elevated, oth erwise remains in atrial fibrillation. No chest pain or pressure. According to staff the patient rosario s had a significant amount of secretions still. MEDICATIONS: Reviewed. PHYSICAL EXAMINATION: VITAL SIGNS: Temperature 98.6, heart rate of 117, blood pressure of 132/70, respiratory rate of 13, saturating 100% on . HEENT: Normocephalic, atraumatic. Elderly female. Status post tracheostomy, on the vent. Eyes: P upils are equal. CARDIOVASCULAR: Irregularly irregular. Systolic and diastolic murmur. PULMONARY: With mild rhonchi, diffuse. GASTROINTESTINAL: Soft, nontender. No rebound or guarding. EXTREMITIES: Positive lower extremity edema. NEUROLOGIC: Awake, responds appropriately. PSYCHIATRIC: Appears to be calm but depressed mood. LABORATORY: Sodium 137, potassium 4.8, BUN of 50, creatinine 1.149, glucose of 100. WBC of 11.3, he moglobin 8.2, platelets of 228. ASSESSMENT AND PLAN: 1. Hypoxemic respiratory failure with tracheostomy, vent dependent. 2. Renal failure on dialysis. 3. Chronic atrial fibrillation on anticoagulation, heart rate controlled. 4. Pulmonary hypertension, possible ASD. 5. Status post sepsis, pneumonia and shock, currently blood pressure has improved. Antibiotic as per internal medicine ID. 6. Anemia. RECOMMENDATIONS: I will give a dose of digoxin to the patient again today to control the heart rate better. Will monitor the digoxin level to avoid digoxin toxicity. Dialysis will be continued and managed as per renal recommendations. We will continue the vent support. Antibiotic is managed as per ID recommendation. Dictated By: AMANDA PINTO MD AV/ARNOLDO Conf#: [id number] DID#: [id number] CC: RUDDY GEE DO;*EndCC*
[2016-11-06 08:18] LABS: BASOPHIL # 0.1 10^3/ul (0.0-0.1); BASOPHILS % 0.7 % (0.0-2.0); EOSINOPHILS # 0.1 10^3/ul (0.0-0.5); EOSINOPHILS % 1.2 % (0.0-7.0); HEMATOCRIT 25.1 % (37.0-47.0); HEMOGLOBIN 7.9 g/dl (12.0-16.0); LYMPHOCYTES # 1.5 10^3/ul (0.8-2.9); LYMPHOCYTES % 15.5 % (15.0-51.0); MEAN CORPUSCULAR HEMOGLOBIN 31.7 pg (29.0-33.0); MEAN CORPUSCULAR HGB CONC 31.3 g/dl (32.0-37.0); MEAN CORPUSCULAR VOLUME 101.1 fl (82.0-101.0); MEAN PLATELET VOLUME 7.4 fl (7.4-10.4); MONOCYTE # 0.8 10^3/ul (0.3-0.9); MONOCYTES % 7.8 % (0.0-11.0); NEUTROPHIL # 7.4 10^3/ul (1.6-7.5); NEUTROPHILS % 74.8 % (39.0-77.0); PLATELET COUNT 219 10^3/UL (140-440); RED BLOOD COUNT 2.48 10^6/ul (4.20-5.40); RED CELL DISTRIBUTION WIDTH 18.2 % (11.5-14.5); UNCORRECTED WBC 9.9 10^3/ul (4.8-10.8); WHITE BLOOD COUNT 9.9 10^3/ul (4.8-10.8)
[2016-11-06 08:21] LABS: ALBUMIN 2.7 g/dl (3.3-4.9); POTASSIUM 4.1 mmol/L (3.5-5.1)
[2016-11-06 08:24] LABS: ALBUMIN/GLOBULIN RATIO 0.9; BILIRUBIN,INDIRECT 0.3 mg/dl (0-1.1); BILIRUBIN,TOTAL 0.3 mg/dl (0.2-1.3); CALCIUM 8.6 mg/dl (8.4-10.2); CONDITION 1; CREATININE 1.23 mg/dl (0.44-1.00); LH ANALYZER COMMENTS 1; TOTAL PROTEIN 5.7 g/dl (6.1-8.1)
[2016-11-06] MEDS: BUDESONIDE (NEB) 0.5MG/2ML AMP HHN SCH ×2 (08:47→19:21)
[2016-11-06] MEDS: PRAMOXINE 1% 15 GM RECT FOAM PR SCH ×3 (09:32→22:41)
[2016-11-06] MEDS: APIXABAN 5 MG TABLET GTB SCH ×2 (09:32→22:37)
[2016-11-06] MEDS: LEVETIRACETAM IV 500 MG in DEXTROSE 5% 100 ML IVPB SCH ×2 (09:32→22:37)
[2016-11-06] MEDS: SILDENAFIL 20 MG TAB GTB SCH ×3 (09:32→22:00)
[2016-11-06] MEDS: HYDROCORTISONE 1% 28 GM CR TOP SCH ×2 (09:33→22:41)
[2016-11-06] MEDS: MUPIROCIN 2% 22 GM OINT TOP SCH ×2 (09:33→22:41)
[2016-11-06] MEDS: COLLAGENASE 30 GM TUBE TOP SCH (09:33)
[2016-11-06 10:07] LABS: IRON 22 ug/dl (35-150)
[2016-11-06 10:16] LABS: TOTAL IRON BINDING CAPACITY 108 ug/dl (241-421)
--- NOTE | 2016-11-06 10:33 | PN ---
DATE: 11/06/2016 CARDIOLOGY FOLLOWUP SUBJECTIVE: Discussed with the staff. Rhythm strip reviewed. The patient remains in atrial fibril lation and overall is stable. The patient with no reported chest pain or pressure. Status post tra ch, still on the vent. MEDICATIONS: Reviewed as per medication reconciliation, personally reviewed. PHYSICAL EXAMINATION: VITAL SIGNS: Temperature 98.4, heart rate of 96, blood pressure 114/61, respiration rate of 17, sat urating 98%. HEENT: Normocephalic, atraumatic. Elderly female. Status post tracheostomy. CARDIOVASCULAR: Irregularly irregular. PULMONARY: No wheezes heard anteriorly, mild rhonchi, diffuse. GASTROINTESTINAL: Soft, nontender. No rebound. EXTREMITIES: Status post PEG placement. EXTREMITIES: Positive lower extremity edema. NEUROLOGIC: Awake, responds appropriately. PSYCHIATRIC: Appears to be calm and pleasant. DIAGNOSTIC IMPRESSION: 1. Hypoxemic respiratory failure, status post tracheostomy, vent dependent with atrial fibrillation , chronic anticoagulation. 2. Anemia appears to be stable now, will monitor. 3. History of pulmonary hypertension, possible ASD. 4. sepsis and pneumonia and shock. Antibiotic as per internal medicine and ID recommendation . 5. Debility. RECOMMENDATIONS: Heart rate is currently under control. Continue with the current cardiac care. D ialysis as per renal will be continued. Dictated By: AMANDA PINTO MD AV/ARNOLDO Conf#: [id number] DID#: [id number] CC: RUDDY GEE DO;*EndCC*
--- NOTE | 2016-11-06 12:03 | PN ---
DATE: SUBJECTIVE: The patient is stable, no acute events overnight. The patient had hemodialysis yesterd ay, tolerated well, with 3 liters removed. No other events noted. OBJECTIVE VITAL SIGNS: Blood pressure is 114/61, respirations 16, pulse 85, temperature 98.4. HEENT: Head is normocephalic. NECK: Supple. HEART: Regular rate. LUNGS: Show diminished breath sounds at the base. ABDOMEN: Soft, nontender to palpation. No rebound or guarding. EXTREMITIES: Negative for clubbing, cyanosis; no edema. DERMATOLOGIC: No rashes. MUSCULOSKELETAL: No joint effusions. NEUROLOGIC: No change in exam. MEDICATIONS: Reviewed. LABORATORY DATA: Shows white count 9.9, hemoglobin 7.9, hematocrit 25.1, platelet count is 219. So dium 137, potassium 4.1, BUN 37, creatinine 1.23. ASSESSMENT AND PLAN 1. Sepsis secondary to bacteremia. The patient is completing course of vancomycin, will continue. 2. End-stage renal disease. The patient had hemodialysis yesterday, tolerated well. Plan for dial ysis tomorrow. 3. Hyponatremia secondary to end-stage renal disease, improved. 4. Abdominal ascites, improved. Continue ultrafiltration dialysis. We will follow up with GI. 5. Pulmonary hypertension. Continue sildenafil. 6. Decubitus wound. Continue wound care. 7. Anemia. The patient's hemoglobin levels remain low. We will continue Epogen. We will check an iron panel. If there is evidence of relative iron deficiency, we will start the patient on Ferrlec it run. Monitor closely. 8. Seizure disorder. Continue Keppra. 9. Status post-PEG, feeding. 10. Ventilator-dependent respiratory failure. Vent settings have been reviewed. Continue to monit or. 11. Atrial fibrillation, rate controlled. Continue medical management. 12. Encephalopathy. No change. 13. Gastrointestinal and deep venous thrombosis prophylaxis. Continue proton pump inhibitor and El iquis. 14. Disposition. The patient is pending transfer to subacute facility when bed is available. Dictated By: RUDDY BUSTILLOS/ARNOLDO Conf#: [id number] DID#: [id number]
--- NOTE | 2016-11-06 16:36 | CONS ---
Date/Time of Note Date/Time of Note DATE: 11/06/16 TIME: 16:35 Assessment/Plan Assessment/Plan Additional Assessment/Plan ASSESSMENT: 1. Renal failure on dialysis. 2. Vent dependent respiratory failure. 3. Chronic obstructive pulmonary disease. 4. Atrial fibrillation. 5. Ascites, responding to dialysis 6. Dysphagia 7. G-tube clean,no leakage,tolerating feeding 50 cc/hr,diabetasource 8. Anemia: stable, likely from anemia of chronic disease 9. Status post septic shock. 10. Diabetes mellitus. 11. Decubitus ulcer. 12. Congestive heart failure. 13. Seizure disorder. 14. pneumonia,s/p sepsis 15.pulmonary hypertension 16 persistent leucocytosis,better 17.pressure ulcer g tube site,healed Plan continue antibiotics per DOROTHY Cuevas for gastroparesis. G-tube site ,no leakage of formula,or even ascites fluid continue present care,dialysis discussed with family Consultation Date/Type/Reason Admit Date/Time Sep 17, 2016 at 18:49 Type of Consultation: pulmonary 24 HR Interval Summary Constitutional: no complaints Exam/Review of Systems Vital Signs Vitals Vital Signs Date Time Temp Pulse Resp B/P Pulse Ox O2 Delivery O2 Flow Rate FiO2 11/06/16 15:22 98.6 81 18 90/45 100 11/06/16 13:20 40 11/06/16 04:06 Mechanical Ventilator Intake and Output 11/05/16 11/05/16 11/06/16 14:59 22:59 06:59 Intake Total 720 ml 780 ml 659 ml Output Total 3600 ml 3000 ml Balance -2880 ml -2220 ml 659 ml Exam Constitutional: alert, oriented, well developed Psych: nl mood/affect, no complaints Head: atraumatic, normocephalic Eyes: EOMI, PERRL, nl conjunctiva, nl lids, nl sclera ENMT: nl external ears & nose, nl lips & teeth, nl nasal mucosa & septum Neck: non-tender, supple Respiratory: clear to auscultation, normal air movement Cardiovascular: nl pulses, regular rate and rhythm Gastrointestinal: nl liver, spleen, non-tender, soft Musculoskeletal: nl extremities to inspection, nl gait and stance Extremities: normal pulses Neurological: 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, nl mental status, nl speech, nl strength Skin: nl turgor, No rash or lesions Lymph: nl lymph nodes Results Result Diagram: 11/06/16 0730 11/06/16 0730 Results 24 hrs Laboratory Tests Test 11/06/16 07:30 11/06/16 09:08 Alanine Aminotransferase (ALT/SGPT) 25 Albumin 2.7 L Albumin/Globulin Ratio 0.90 Alkaline Phosphatase 155 H Anion Gap 12 Aspartate Amino Transf (AST/SGOT) 15 Basophils # 0.1 Basophils % 0.7 Blood Morphology Comment Blood Urea Nitrogen 37 #H Calcium Level 8.6 Carbon Dioxide Level 33 H Chloride Level 96 L Creatinine 1.23 H Direct Bilirubin 0.00 Eosinophils # 0.1 Eosinophils % 1.2 Globulin 3.00 Glucose Level 102 Hematocrit 25.1 L Hemoglobin 7.9 L Indirect Bilirubin 0.3 Lymphocytes # 1.5 Lymphocytes % 15.5 Mean Corpuscular Hemoglobin 31.7 Mean Corpuscular Hemoglobin Concent 31.3 L Mean Corpuscular Volume 101.1 H Mean Platelet Volume 7.4 Monocytes # 0.8 Monocytes % 7.8 Neutrophils # 7.4 Neutrophils % 74.8 Nucleated Red Blood Cells # 0.0 Nucleated Red Blood Cells % 0.0 Platelet Count 219 Potassium Level 4.1 Red Blood Count 2.48 L Red Cell Distribution Width 18.2 H Sodium Level 137 Total Bilirubin 0.3 Total Protein 5.7 L White Blood Count 9.9 Ferritin 1060.0 H Iron Level 22 L Percent Iron Saturation 20 L Total Iron Binding Capacity 108 L Medications Medications Current Medications Levetiracetam/ Dextrose (Keppra Iv/D5W) 105 ml @ 420 mls/hr Q12 IVPB Last administered on 11/06/16at 09:32; Admin Dose 420 MLS/HR; Start 09/18/16 at 09: 00 Collagenase (Santyl) 1 applic DAILY TOP Last administered on 11/06/16at 09:33; Admin Dose 1 APPLIC; Start 09/18/16 at 09:00 Acetaminophen (Tylenol Liquid) 650 mg Q4H PRN NGT PAIN AND OR ELEVATED TEMP Last administered on 09/29/16at 12:07; Admin Dose 650 MG; Start 09/18/16 at 08: 00 Bisacodyl (Dulcolax Supp) 10 mg DAILY PRN [place] CONSTIPATION; Start 09/18/16 at 08:00 Mupirocin (Bactroban) Apply to bilateral nares ... BID TOP Last administered on 11/06/16 09:33; Admin Dose 2 APPLIC; Start 09/18/16 at 09:00 Mirtazapine (Remeron) 7.5 mg HS GTB Last administered on 11/05/16 22:22; Admin Dose 7.5 MG; Start 09/18/16 at 21:00 Ondansetron HCl (Zofran Inj) 4 mg Q4H PRN IV NAUSEA AND/OR VOMITING; Start 08/24 at 08:00 Morphine Sulfate (morphine) 2 mg Q3H PRN IV PAIN LEVEL 6-10 Last administered on 11/05/16 04:47; Admin Dose 2 MG; Start 09/18/16 at 08:00 Lorazepam (Ativan) 0.5 mg Q3H PRN IV ANXIETY Last administered on 11/04/16 20 :12; Admin Dose 0.5 MG; Start 09/18/16 at 08:00 IV Flush (NS 10 ml) 10 ml PRN PRN IV IV PROTOCOL Last administered on 06:01; Admin Dose 10 ML; Start 09/18/16 at 13:00 Lansoprazole (Prevacid) 30 mg DAILY@06 PO Last administered on 11/06/16 05:45 ; Admin Dose 30 MG; Start 09/27/16 at 06:00 Apixaban (Eliquis) 2.5 mg BID GTB Last administered on 11/06/16 09:32; Admin Dose 2.5 MG; Start 09/30/16 at 09:00; Status Future hold Metoclopramide HCl (Reglan) 5 mg Q6 IV Last administered on 11/06/16 14:14; Admin Dose 5 MG; Start 09/30/16 at 12:00 Sildenafil Citrate (Revatio) 20 mg TID GTB Last administered on 11/06/16 09: 32; Admin Dose 20 MG; Start 10/08/16 at 10:45 Pramoxine HCl (Proctofoam 1%) 1 applic TID [place] Last administered on 11/06/16 14:15; Admin Dose 1 APPLIC; Start 10/10/16 at 21:00 Hydrocortisone (Hydrocortisone 1% Cr) 1 applic BID TOP Last administered on 09:33; Admin Dose 1 APPLIC; Start 10/30/16 at 15:30 Diphenhydramine HCl 25 mg 25 mg Q8H PRN PO ITCHING; Start 10/30/16 at 15:00 Vancomycin HCl/ Sodium Chloride (Vancocin/NS) 250 ml @ 83.333 mls/ hr Q96H IVPB ; Start 11/07/16 at 06:00 ANNABEL CISSE MD Nov 06, 2016 16:36
--- NOTE | 2016-11-06 19:02 | CONS ---
Date/Time of Note Date/Time of Note DATE: 11/06/16 TIME: 19:01 Consult Date/Type/Reason Admit Date/Time Sep 17, 2016 at 18:49 Type of Consultation: ID Subjective awake, lying comfortably in bed, no fevers, nad Objective Vital Signs Date Time Temp Pulse Resp B/P Pulse Ox O2 Delivery O2 Flow Rate FiO2 11/06/16 17:34 99 15 100 40 11/06/16 15:22 98.6 90/45 11/06/16 04:06 Mechanical Ventilator Intake and Output 11/05/16 11/05/16 11/06/16 14:59 22:59 06:59 Intake Total 720 ml 780 ml 659 ml Output Total 3600 ml 3000 ml Balance -2880 ml -2220 ml 659 ml Results/Medications Result Diagram: 11/06/16 0730 11/06/16 0730 Results 24 hrs Laboratory Tests Test 11/06/16 07:30 11/06/16 09:08 Alanine Aminotransferase (ALT/SGPT) 25 Albumin 2.7 L Albumin/Globulin Ratio 0.90 Alkaline Phosphatase 155 H Anion Gap 12 Aspartate Amino Transf (AST/SGOT) 15 Basophils # 0.1 Basophils % 0.7 Blood Morphology Comment Blood Urea Nitrogen 37 #H Calcium Level 8.6 Carbon Dioxide Level 33 H Chloride Level 96 L Creatinine 1.23 H Direct Bilirubin 0.00 Eosinophils # 0.1 Eosinophils % 1.2 Globulin 3.00 Glucose Level 102 Hematocrit 25.1 L Hemoglobin 7.9 L Indirect Bilirubin 0.3 Lymphocytes # 1.5 Lymphocytes % 15.5 Mean Corpuscular Hemoglobin 31.7 Mean Corpuscular Hemoglobin Concent 31.3 L Mean Corpuscular Volume 101.1 H Mean Platelet Volume 7.4 Monocytes # 0.8 Monocytes % 7.8 Neutrophils # 7.4 Neutrophils % 74.8 Nucleated Red Blood Cells # 0.0 Nucleated Red Blood Cells % 0.0 Platelet Count 219 Potassium Level 4.1 Red Blood Count 2.48 L Red Cell Distribution Width 18.2 H Sodium Level 137 Total Bilirubin 0.3 Total Protein 5.7 L White Blood Count 9.9 Ferritin 1060.0 H Iron Level 22 L Percent Iron Saturation 20 L Total Iron Binding Capacity 108 L Medications Current Medications Levetiracetam/ Dextrose (Keppra Iv/D5W) 105 ml @ 420 mls/hr Q12 IVPB Last administered on 11/06/16 09:32; Admin Dose 420 MLS/HR; Start 09/18/16 at 09: 00 Collagenase (Santyl) 1 applic DAILY TOP Last administered on 11/06/16 09:33; Admin Dose 1 APPLIC; Start 09/18/16 at 09:00 Acetaminophen (Tylenol Liquid) 650 mg Q4H PRN NGT PAIN AND OR ELEVATED TEMP Last administered on 09/29/16 12:07; Admin Dose 650 MG; Start 09/18/16 at 08: 00 Bisacodyl (Dulcolax Supp) 10 mg DAILY PRN [place] CONSTIPATION; Start 09/18/16 at 08:00 Mupirocin (Bactroban) Apply to bilateral nares ... BID TOP Last administered on 11/06/16 09:33; Admin Dose 2 APPLIC; Start 09/18/16 at 09:00 Mirtazapine (Remeron) 7.5 mg HS GTB Last administered on 11/05/16 22:22; Admin Dose 7.5 MG; Start 09/18/16 at 21:00 Ondansetron HCl (Zofran Inj) 4 mg Q4H PRN IV NAUSEA AND/OR VOMITING; Start 08/24 at 08:00 Morphine Sulfate (morphine) 2 mg Q3H PRN IV PAIN LEVEL 6-10 Last administered on 11/05/16 04:47; Admin Dose 2 MG; Start 09/18/16 at 08:00 Lorazepam (Ativan) 0.5 mg Q3H PRN IV ANXIETY Last administered on 11/04/16 20 :12; Admin Dose 0.5 MG; Start 09/18/16 at 08:00 IV Flush (NS 10 ml) 10 ml PRN PRN IV IV PROTOCOL Last administered on 06:01; Admin Dose 10 ML; Start 09/18/16 at 13:00 Lansoprazole (Prevacid) 30 mg DAILY@06 PO Last administered on 11/06/16 05:45 ; Admin Dose 30 MG; Start 09/27/16 at 06:00 Apixaban (Eliquis) 2.5 mg BID GTB Last administered on 11/06/16 09:32; Admin Dose 2.5 MG; Start 09/30/16 at 09:00; Status Future hold Metoclopramide HCl (Reglan) 5 mg Q6 IV Last administered on 11/06/16at 18:44; Admin Dose 5 MG; Start 09/30/16 at 12:00 Sildenafil Citrate (Revatio) 20 mg TID GTB Last administered on 11/06/16at 09: 32; Admin Dose 20 MG; Start 10/08/16 at 10:45 Pramoxine HCl (Proctofoam 1%) 1 applic TID [place] Last administered on 11/06/16at 14:15; Admin Dose 1 APPLIC; Start 10/10/16 at 21:00 Hydrocortisone (Hydrocortisone 1% Cr) 1 applic BID TOP Last administered on at 09:33; Admin Dose 1 APPLIC; Start 10/30/16 at 15:30 Diphenhydramine HCl 25 mg 25 mg Q8H PRN PO ITCHING; Start 10/30/16 at 15:00 Vancomycin HCl/ Sodium Chloride (Vancocin/NS) 250 ml @ 83.333 mls/ hr Q96H IVPB ; Start 11/07/16 at 06:00 Assessment/Plan Chief Complaint/Hosp Course INDWELLING: trach, PEG, RIJ Perm-A-Cath Micro: 10/21 Bld cx + Staph species Abx: Vanco PHYSICAL EXAMINATION: GENERAL: Fragile, chronically ill-appearing, elderly woman who is lying comfortably in bed. HEENT: Head atraumatic, normocephalic. Sclerae anicteric. Buccal mucosa dry. NECK: Supple. Tracheostomy present. CHEST: Rise symmetrical. Breath sounds diminished to bases. HEART: S1, S2. ABDOMEN: Soft, bowel tones present. EXTREMITIES: Without cyanosis. ASSESSMENT: 1. Status post septic shock shock. 2. GPC septicemia===> PICC dc'd 2. S/p healthcare-associated pneumonia with parapneumonic pleural effusion and sputum culture growing multi-drug resistant Pseudomonas aeruginosa. 3. Methicillin-resistant Staphylococcus aureus infected decubitus. 4. S/p joe glabrata urinary tract infection. 5. Methicillin-resistant Staphylococcus aureus nares colonization. 6. End-stage renal disease, hemodialysis dependent. 7. History of cerebrovascular accident. 8. Recurrent ascites==> s/p paracentesis 09/24, 10/14 9. ALLERGY TO PENICILLIN AND SULFA. PLAN: Clinically stable, bld cx from HD negative, continue Vanco for 3 more days DW RN Problems: RAISSA ROA NP Nov 06, 2016 19:01
[2016-11-06] MEDS: MIRTAZAPINE 15 MG TAB GTB SCH (22:37)
[2016-11-07] VITALS (30 sets, daily range): BP systolic 88–139; BP diastolic 40–76; PULSE 79–111; RESP 12–20
[2016-11-07] MEDS: METOCLOPRAMIDE 10 MG INJ IV SCH ×6 (00:20→23:01)
[2016-11-07] MEDS: IPRATROPIUM (HFA) 12.9 GM INHALER INH SCH ×6 (00:59→19:57)
[2016-11-07] MEDS: LEVALBUTEROL (HFA) 15 GM INHALER INH SCH ×6 (00:59→19:57)
[2016-11-07] MEDS: VANCOMYCIN 1.5 GM in SOD CHLORIDE 0.9% 250 ML IVPB SCH ×2 (06:00→12:41)
[2016-11-07] MEDS: LANSOPRAZOLE 30 MG CAP PO SCH (07:04)
[2016-11-07] MEDS: BUDESONIDE (NEB) 0.5MG/2ML AMP HHN SCH ×2 (08:52→19:49)
[2016-11-07] MEDS: COLLAGENASE 30 GM TUBE TOP SCH (09:00)
[2016-11-07] MEDS: MUPIROCIN 2% 22 GM OINT TOP SCH ×2 (09:00→20:17)
[2016-11-07] MEDS: SILDENAFIL 20 MG TAB GTB SCH ×3 (09:00→20:18)
[2016-11-07] MEDS: PRAMOXINE 1% 15 GM RECT FOAM PR SCH ×3 (09:00→20:18)
[2016-11-07] MEDS: HYDROCORTISONE 1% 28 GM CR TOP SCH ×2 (09:00→20:18)
--- NOTE | 2016-11-07 09:40 | PN ---
DATE: 11/07/2016 SUBJECTIVE: The patient is stable, no acute events overnight. No fevers, chills, nausea, vomiting. OBJECTIVE: VITAL SIGNS: Blood pressure 113/55, respirations 20, pulse 109, temperature 98.8. HEENT: Head is normocephalic. NECK: Supple. HEART: Tachycardic. LUNGS: Show diminished breath sounds at base. ABDOMEN: Soft, nontender to palpation. No rebound or guarding. EXTREMITIES: Negative for clubbing, cyanosis, no edema. DERMATOLOGIC: No rashes. MUSCULOSKELETAL: No joint effusions. NEUROLOGIC: No change in exam. MEDICATIONS: The patient's medications have been reviewed. LABORATORY DATA: Currently pending. Repeat blood cultures have been negative. ASSESSMENT AND PLAN: 1. Sepsis secondary to bacteremia. Patient completing antibiotic course. Continue current antibio tic regimen. 2. End-stage renal disease. The patient had hemodialysis scheduled for today for 3 hours, 3 K bath , calcium 2.5, ultrafiltrate as tolerated. 3. Abdominal ascites, improved. Continue ultrafiltration. Follow up with GI. 4. Pulmonary hypertension. Continue sildenafil. 5. Decubitus wound. Continue wound care. 6. Anemia. Continue Epogen. Etiology secondary to end-stage renal disease. Iron panel shows elev ated ferritin levels consistent with inflammatory state. Will defer Ferrlecit run at this time. 7. Seizure disorder. Continue Keppra. 8. Dysphagia. Status post PEG. Continue tube feeds. 9. Ventilator dependent respiratory failure. Vent settings reviewed. ABG is reviewed. Continue t o monitor. 10. Atrial fibrillation with adequate control. Continue medical management. 11. Encephalopathy. No change. 12. Gastrointestinal and deep venous thrombosis prophylaxis. Continue PPI. 13. Disposition. The patient is pending transfer subacute facility. Dictated By: RUDDY BUSTILLOS/ARNOLDO Conf#: [id number] DID#: [id number]
[2016-11-07 10:46] LABS: BASOPHILS % 0.4 % (0.0-2.0); EOSINOPHILS # 0.1 10^3/ul (0.0-0.5); EOSINOPHILS % 1.1 % (0.0-7.0); HEMATOCRIT 26.8 % (37.0-47.0); HEMOGLOBIN 8.6 g/dl (12.0-16.0); LYMPHOCYTES # 1.6 10^3/ul (0.8-2.9); LYMPHOCYTES % 13.8 % (15.0-51.0); MEAN CORPUSCULAR HGB CONC 32.1 g/dl (32.0-37.0); MEAN CORPUSCULAR VOLUME 99.8 fl (82.0-101.0); MEAN PLATELET VOLUME 7.2 fl (7.4-10.4); MONOCYTE # 0.6 10^3/ul (0.3-0.9); MONOCYTES % 5.5 % (0.0-11.0); NEUTROPHILS % 79.2 % (39.0-77.0); PLATELET COUNT 229 10^3/UL (140-440); RED BLOOD COUNT 2.68 10^6/ul (4.20-5.40); RED CELL DISTRIBUTION WIDTH 18.4 % (11.5-14.5); UNCORRECTED WBC 11.4 10^3/ul (4.8-10.8); WHITE BLOOD COUNT 11.4 10^3/ul (4.8-10.8)
[2016-11-07] MEDS: APIXABAN 5 MG TABLET GTB SCH ×2 (10:46→20:17)
[2016-11-07 10:50] LABS: CONDITION 1; LH ANALYZER COMMENTS 1
[2016-11-07] MEDS: LEVETIRACETAM IV 500 MG in DEXTROSE 5% 100 ML IVPB SCH ×2 (11:04→20:17)
--- NOTE | 2016-11-07 13:55 | CONS ---
Date/Time of Note Date/Time of Note DATE: 11/07/16 TIME: 13:55 Consult Date/Type/Reason Admit Date/Time Sep 17, 2016 at 18:49 Type of Consultation: Pulm Subjective Comfortable. No new events. Objective Vital Signs Date Time Temp Pulse Resp B/P Pulse Ox O2 Delivery O2 Flow Rate FiO2 11/07/16 13:21 121 14 97 40 11/07/16 12:44 98.0 111/52 11/06/16 04:06 Mechanical Ventilator Intake and Output 11/06/16 11/06/16 11/07/16 15:00 23:00 07:00 Intake Total 100 ml 800 ml 581 ml Balance 100 ml 800 ml 581 ml PHYSICAL EXAMINATION GENERAL: Elderly lady on mechanical ventilation comfortable VITAL SIGNS: see below. HEENT: Pupils equal, round, and reactive to light. Tracheostomy site clean and intact. CARDIAC: S1, S2 CHEST: Diminished air entry bilaterally. ABDOMEN: Mildly distended. Decreased bowel sounds EXTREMITIES: No cyanosis, clubbing edema +1 NEUROLOGIC: Unable to assess Results/Medications Result Diagram: 11/07/16 1030 11/06/16 0730 Results 24 hrs Laboratory Tests Test 11/07/16 10:30 Basophils # 0.0 Basophils % 0.4 Blood Morphology Comment Eosinophils # 0.1 Eosinophils % 1.1 Hematocrit 26.8 L Hemoglobin 8.6 L Lymphocytes # 1.6 Lymphocytes % 13.8 L Mean Corpuscular Hemoglobin 32.0 Mean Corpuscular Hemoglobin Concent 32.1 Mean Corpuscular Volume 99.8 Mean Platelet Volume 7.2 L Monocytes # 0.6 Monocytes % 5.5 Neutrophils # 9.0 H Neutrophils % 79.2 H Nucleated Red Blood Cells # 0.0 Nucleated Red Blood Cells % 0.0 Platelet Count 229 Red Blood Count 2.68 L Red Cell Distribution Width 18.4 H White Blood Count 11.4 H Medications Current Medications Levetiracetam/ Dextrose (Keppra Iv/D5W) 105 ml @ 420 mls/hr Q12 IVPB Last administered on 11/07/16at 11:04; Admin Dose 420 MLS/HR; Start 09/18/16 at 09: 00 Collagenase (Santyl) 1 applic DAILY TOP Last administered on 11/07/16at 09:00; Admin Dose 1 APPLIC; Start 09/18/16 at 09:00 Acetaminophen (Tylenol Liquid) 650 mg Q4H PRN NGT PAIN AND OR ELEVATED TEMP Last administered on 09/29/16 12:07; Admin Dose 650 MG; Start 09/18/16 at 08: 00 Bisacodyl (Dulcolax Supp) 10 mg DAILY PRN [place] CONSTIPATION; Start 09/18/16 at 08:00 Mupirocin (Bactroban) Apply to bilateral nares ... BID TOP Last administered on 11/07/16 09:00; Admin Dose 1 APPLIC; Start 09/18/16 at 09:00 Mirtazapine (Remeron) 7.5 mg HS GTB Last administered on 11/06/16 22:37; Admin Dose 7.5 MG; Start 09/18/16 at 21:00 Ondansetron HCl (Zofran Inj) 4 mg Q4H PRN IV NAUSEA AND/OR VOMITING; Start 08/24 at 08:00 Morphine Sulfate (morphine) 2 mg Q3H PRN IV PAIN LEVEL 6-10 Last administered on 11/05/16 04:47; Admin Dose 2 MG; Start 09/18/16 at 08:00 Lorazepam (Ativan) 0.5 mg Q3H PRN IV ANXIETY Last administered on 11/04/16 20 :12; Admin Dose 0.5 MG; Start 09/18/16 at 08:00 IV Flush (NS 10 ml) 10 ml PRN PRN IV IV PROTOCOL Last administered on 06:01; Admin Dose 10 ML; Start 09/18/16 at 13:00 Lansoprazole (Prevacid) 30 mg DAILY@06 PO Last administered on 11/07/16 07:04 ; Admin Dose 30 MG; Start 09/27/16 at 06:00 Apixaban (Eliquis) 2.5 mg BID GTB Last administered on 11/07/16 10:46; Admin Dose 2.5 MG; Start 09/30/16 at 09:00; Status Future hold Metoclopramide HCl (Reglan) 5 mg Q6 IV Last administered on 11/07/16 07:05; Admin Dose 5 MG; Start 09/30/16 at 12:00 Sildenafil Citrate (Revatio) 20 mg TID GTB Last administered on 12/30/16at 12: 39; Admin Dose 20 MG; Start 10/08/16 at 10:45 Pramoxine HCl (Proctofoam 1%) 1 applic TID [place] Last administered on 11/07/16at 13:34; Admin Dose 1 APPLIC; Start 10/10/16 at 21:00 Hydrocortisone (Hydrocortisone 1% Cr) 1 applic BID TOP Last administered on at 09:00; Admin Dose 1 APPLIC; Start 10/30/16 at 15:30 Diphenhydramine HCl 25 mg 25 mg Q8H PRN PO ITCHING; Start 10/30/16 at 15:00 Vancomycin HCl/ Sodium Chloride (Vancocin/NS) 250 ml @ 83.333 mls/ hr Q96H IVPB Last administered on 11/07/16at 12:41; Admin Dose 83.333 MLS/HR; Start at 06:00 Assessment/Plan Chief Complaint/Hosp Course IMPRESSION AND PLAN: 1. Ventilator-dependent respiratory failure. 2. Status post septic shock. 3. Polymicrobial sepsis. Now normal white blood cell count 4. End-stage renal failure on hemodialysis. 5. G tube malfunction / leak PLAN: 1. Continue vent support. 2. Continue ID recommendations. 3. Continue wound care. 4. Continue DVT and GI prophylaxis. 5. GI recs Discharge planning. Problems: JULIA HERNANDEZ [facility], [facility] Nov 07, 2016 13:55
--- NOTE | 2016-11-07 16:33 | CONS ---
Date/Time of Note Date/Time of Note DATE: 11/07/16 TIME: 16:32 Consult Date/Type/Reason Admit Date/Time Sep 17, 2016 at 18:49 Type of Consultation: ID Subjective events noted, no fevers, nad Objective Vital Signs Date Time Temp Pulse Resp B/P Pulse Ox O2 Delivery O2 Flow Rate FiO2 11/07/16 15:28 128 14 99 40 11/07/16 12:44 98.0 111/52 11/06/16 04:06 Mechanical Ventilator Intake and Output 11/06/16 11/06/16 11/07/16 15:00 23:00 07:00 Intake Total 100 ml 800 ml 581 ml Balance 100 ml 800 ml 581 ml Results/Medications Result Diagram: 11/07/16 1030 11/06/16 0730 Results 24 hrs Laboratory Tests Test 11/07/16 10:30 Basophils # 0.0 Basophils % 0.4 Blood Morphology Comment Eosinophils # 0.1 Eosinophils % 1.1 Hematocrit 26.8 L Hemoglobin 8.6 L Lymphocytes # 1.6 Lymphocytes % 13.8 L Mean Corpuscular Hemoglobin 32.0 Mean Corpuscular Hemoglobin Concent 32.1 Mean Corpuscular Volume 99.8 Mean Platelet Volume 7.2 L Monocytes # 0.6 Monocytes % 5.5 Neutrophils # 9.0 H Neutrophils % 79.2 H Nucleated Red Blood Cells # 0.0 Nucleated Red Blood Cells % 0.0 Platelet Count 229 Red Blood Count 2.68 L Red Cell Distribution Width 18.4 H White Blood Count 11.4 H Medications Current Medications Levetiracetam/ Dextrose (Keppra Iv/D5W) 105 ml @ 420 mls/hr Q12 IVPB Last administered on 11/07/16at 11:04; Admin Dose 420 MLS/HR; Start 09/18/16 at 09: 00 Collagenase (Santyl) 1 applic DAILY TOP Last administered on 11/07/16at 09:00; Admin Dose 1 APPLIC; Start 09/18/16 at 09:00 Acetaminophen (Tylenol Liquid) 650 mg Q4H PRN NGT PAIN AND OR ELEVATED TEMP Last administered on 09/29/16at 12:07; Admin Dose 650 MG; Start 09/18/16 at 08: 00 Bisacodyl (Dulcolax Supp) 10 mg DAILY PRN [place] CONSTIPATION; Start 09/18/16 at 08:00 Mupirocin (Bactroban) Apply to bilateral nares ... BID TOP Last administered on 11/07/16 09:00; Admin Dose 1 APPLIC; Start 09/18/16 at 09:00 Mirtazapine (Remeron) 7.5 mg HS GTB Last administered on 11/06/16 22:37; Admin Dose 7.5 MG; Start 09/18/16 at 21:00 Ondansetron HCl (Zofran Inj) 4 mg Q4H PRN IV NAUSEA AND/OR VOMITING; Start 08/24 at 08:00 Morphine Sulfate (morphine) 2 mg Q3H PRN IV PAIN LEVEL 6-10 Last administered on 11/05/16 04:47; Admin Dose 2 MG; Start 09/18/16 at 08:00 Lorazepam (Ativan) 0.5 mg Q3H PRN IV ANXIETY Last administered on 11/04/16at 20 :12; Admin Dose 0.5 MG; Start 09/18/16 at 08:00 IV Flush (NS 10 ml) 10 ml PRN PRN IV IV PROTOCOL Last administered on 06:01; Admin Dose 10 ML; Start 09/18/16 at 13:00 Lansoprazole (Prevacid) 30 mg DAILY@06 PO Last administered on 11/07/16 07:04 ; Admin Dose 30 MG; Start 09/27/16 at 06:00 Apixaban (Eliquis) 2.5 mg BID GTB Last administered on 11/07/16 10:46; Admin Dose 2.5 MG; Start 09/30/16 at 09:00; Status Future hold Metoclopramide HCl (Reglan) 5 mg Q6 IV Last administered on 11/07/16 07:05; Admin Dose 5 MG; Start 09/30/16 at 12:00 Sildenafil Citrate (Revatio) 20 mg TID GTB Last administered on 11/07/16 12: 39; Admin Dose 20 MG; Start 10/08/16 at 10:45 Pramoxine HCl (Proctofoam 1%) 1 applic TID [place] Last administered on 11/07/16 13:34; Admin Dose 1 APPLIC; Start 10/10/16 at 21:00 Hydrocortisone (Hydrocortisone 1% Cr) 1 applic BID TOP Last administered on at 09:00; Admin Dose 1 APPLIC; Start 10/30/16 at 15:30 Diphenhydramine HCl 25 mg 25 mg Q8H PRN PO ITCHING; Start 10/30/16 at 15:00 Vancomycin HCl/ Sodium Chloride (Vancocin/NS) 250 ml @ 83.333 mls/ hr Q96H IVPB Last administered on 11/07/16at 12:41; Admin Dose 83.333 MLS/HR; Start at 06:00 Assessment/Plan Chief Complaint/Hosp Course INDWELLING: trach, PEG, RIJ Perm-A-Cath Micro: 10/21 Bld cx + Staph species Abx: Vanco PHYSICAL EXAMINATION: GENERAL: Fragile, chronically ill-appearing, elderly woman who is lying comfortably in bed. HEENT: Head atraumatic, normocephalic. Sclerae anicteric. Buccal mucosa dry. NECK: Supple. Tracheostomy present. CHEST: Rise symmetrical. Breath sounds diminished to bases. HEART: S1, S2. ABDOMEN: Soft, bowel tones present. EXTREMITIES: Without cyanosis. ASSESSMENT: 1. Status post septic shock shock. 2. GPC septicemia===> PICC dc'd, repeat bld cx negative 2. S/p healthcare-associated pneumonia with parapneumonic pleural effusion and sputum culture growing multi-drug resistant Pseudomonas aeruginosa. 3. Methicillin-resistant Staphylococcus aureus infected decubitus. 4. S/p joe glabrata urinary tract infection. 5. Methicillin-resistant Staphylococcus aureus nares colonization. 6. End-stage renal disease, hemodialysis dependent. 7. History of cerebrovascular accident. 8. Recurrent ascites==> s/p paracentesis 09/24, 10/14 9. ALLERGY TO PENICILLIN AND SULFA. PLAN: Clinically unchanged, will dc Vanco in am staff Problems: RAISSA ROA NP Nov 07, 2016 16:33
--- NOTE | 2016-11-07 19:27 | CONS ---
Date/Time of Note Date/Time of Note DATE: 11/07/16 TIME: 19:25 Assessment/Plan Assessment/Plan Additional Assessment/Plan ASSESSMENT: 1. Renal failure on dialysis. 2. Vent dependent respiratory failure. 3. Chronic obstructive pulmonary disease. 4. Atrial fibrillation. 5. Ascites, responding to dialysis,pt had last paracentesis on 10/14 6. Dysphagia 7. G-tube clean,no leakage,tolerating feeding 50 cc/hr,diabetasource 8. Anemia: stable, likely from anemia of chronic disease 9. Status post septic shock. 10. Diabetes mellitus. 11. Decubitus ulcer. 12. Congestive heart failure. 13. Seizure disorder. 14. pneumonia,s/p sepsis 15.pulmonary hypertension 16 persistent leucocytosis,better 17.pressure ulcer g tube site,healed Plan continue antibiotics per ID Reglan for gastroparesis. G-tube site ,no leakage of formula,or even ascites fluid continue present care,dialysis discussed with family Consultation Date/Type/Reason Admit Date/Time Sep 17, 2016 at 18:49 Type of Consultation: ID [id number] HR Interval Summary Constitutional: no complaints Exam/Review of Systems Vital Signs Vitals Vital Signs Date Time Temp Pulse Resp B/P Pulse Ox O2 Delivery O2 Flow Rate FiO2 11/07/16 18:45 95 11/07/16 17:19 14 98 40 11/07/16 17:07 98.0 115/56 11/06/16 04:06 Mechanical Ventilator Intake and Output 11/06/16 11/06/16 11/07/16 15:00 23:00 07:00 Intake Total 100 ml 800 ml 581 ml Balance 100 ml 800 ml 581 ml Exam Constitutional: alert, oriented, well developed Psych: nl mood/affect, no complaints Head: atraumatic, normocephalic Eyes: EOMI, PERRL, nl conjunctiva, nl lids, nl sclera ENMT: nl external ears & nose, nl lips & teeth, nl nasal mucosa & septum Neck: non-tender, supple Respiratory: clear to auscultation, normal air movement Cardiovascular: nl pulses, regular rate and rhythm Gastrointestinal: nl liver, spleen, non-tender, soft Musculoskeletal: nl extremities to inspection, nl gait and stance Extremities: normal pulses Neurological: [employer] II-XII intact, nl mental status, nl speech, nl strength Skin: nl turgor, No rash or lesions Lymph: nl lymph nodes Results Result Diagram: 11/07/16 1030 11/06/16 0730 Results 24 hrs Laboratory Tests Test 11/07/16 10:30 Basophils # 0.0 Basophils % 0.4 Blood Morphology Comment Eosinophils # 0.1 Eosinophils % 1.1 Hematocrit 26.8 L Hemoglobin 8.6 L Lymphocytes # 1.6 Lymphocytes % 13.8 L Mean Corpuscular Hemoglobin 32.0 Mean Corpuscular Hemoglobin Concent 32.1 Mean Corpuscular Volume 99.8 Mean Platelet Volume 7.2 L Monocytes # 0.6 Monocytes % 5.5 Neutrophils # 9.0 H Neutrophils % 79.2 H Nucleated Red Blood Cells # 0.0 Nucleated Red Blood Cells % 0.0 Platelet Count 229 Red Blood Count 2.68 L Red Cell Distribution Width 18.4 H White Blood Count 11.4 H Medications Medications Current Medications Levetiracetam/ Dextrose (Keppra Iv/D5W) 105 ml @ 420 mls/hr Q12 IVPB Last administered on 11/07/16at 11:04; Admin Dose 420 MLS/HR; Start 09/18/16 at 09: 00 Collagenase (Santyl) 1 applic DAILY TOP Last administered on 11/07/16at 09:00; Admin Dose 1 APPLIC; Start 09/18/16 at 09:00 Acetaminophen (Tylenol Liquid) 650 mg Q4H PRN NGT PAIN AND OR ELEVATED TEMP Last administered on 09/29/16at 12:07; Admin Dose 650 MG; Start 09/18/16 at 08: 00 Bisacodyl (Dulcolax Supp) 10 mg DAILY PRN [place] CONSTIPATION; Start 09/18/16 at 08:00 Mupirocin (Bactroban) Apply to bilateral nares ... BID TOP Last administered on 11/07/16at 09:00; Admin Dose 1 APPLIC; Start 09/18/16 at 09:00 Mirtazapine (Remeron) 7.5 mg HS GTB Last administered on 11/06/16at 22:37; Admin Dose 7.5 MG; Start 09/18/16 at 21:00 Ondansetron HCl (Zofran Inj) 4 mg Q4H PRN IV NAUSEA AND/OR VOMITING; Start 08/24 at 08:00 Morphine Sulfate (morphine) 2 mg Q3H PRN IV PAIN LEVEL 6-10 Last administered on 11/05/16 04:47; Admin Dose 2 MG; Start 09/18/16 at 08:00 Lorazepam (Ativan) 0.5 mg Q3H PRN IV ANXIETY Last administered on 11/04/16 20 :12; Admin Dose 0.5 MG; Start 09/18/16 at 08:00 IV Flush (NS 10 ml) 10 ml PRN PRN IV IV PROTOCOL Last administered on 06:01; Admin Dose 10 ML; Start 09/18/16 at 13:00 Lansoprazole (Prevacid) 30 mg DAILY@06 PO Last administered on 11/07/16 07:04 ; Admin Dose 30 MG; Start 09/27/16 at 06:00 Apixaban (Eliquis) 2.5 mg BID GTB Last administered on 11/07/16 10:46; Admin Dose 2.5 MG; Start 09/30/16 at 09:00; Status Future hold Metoclopramide HCl (Reglan) 5 mg Q6 IV Last administered on 11/07/16 07:05; Admin Dose 5 MG; Start 09/30/16 at 12:00 Sildenafil Citrate (Revatio) 20 mg TID GTB Last administered on 11/07/16 12: 39; Admin Dose 20 MG; Start 10/08/16 at 10:45 Pramoxine HCl (Proctofoam 1%) 1 applic TID [place] Last administered on 11/07/16 13:34; Admin Dose 1 APPLIC; Start 10/10/16 at 21:00 Hydrocortisone (Hydrocortisone 1% Cr) 1 applic BID TOP Last administered on 09:00; Admin Dose 1 APPLIC; Start 10/30/16 at 15:30 Diphenhydramine HCl 25 mg 25 mg Q8H PRN PO ITCHING; Start 10/30/16 at 15:00 Vancomycin HCl/ Sodium Chloride (Vancocin/NS) 250 ml @ 83.333 mls/ hr Q96H IVPB Last administered on 11/07/16 12:41; Admin Dose 83.333 MLS/HR; Start at 06:00; Stop 11/08/16 at 06:00 ANNABEL CISSE MD Nov 07, 2016 19:27
[2016-11-07] MEDS: MIRTAZAPINE 15 MG TAB GTB SCH (20:18)
[2016-11-08] VITALS (23 sets, daily range): BP systolic 97–121; BP diastolic 45–57; PULSE 82–99; RESP 14–20
[2016-11-08] MEDS: LEVALBUTEROL (HFA) 15 GM INHALER INH SCH ×6 (01:48→20:17)
[2016-11-08] MEDS: IPRATROPIUM (HFA) 12.9 GM INHALER INH SCH ×6 (01:48→20:17)
--- NOTE | 2016-11-08 05:02 | PN ---
DATE: 11/07/2016 CARDIOLOGY FOLLOWUP SUBJECTIVE: Discussed with the staff, discussed with the patient's son. The patient's rhythm strip was reviewed. The patient remains in atrial fibrillation. Heart rate currently still under good c ontrol. Patient with no chest pain or pressure on the vent still. MEDICATIONS: Reviewed. PHYSICAL EXAMINATION: VITAL SIGNS: Temperature 98, heart rate of 107, blood pressure ____/66, respiratory rate of 14. HEENT: Normocephalic, atraumatic. Pupils are equal. CARDIOVASCULAR: Irregularly irregular. PULMONARY: With no wheezes. GASTROINTESTINAL: Soft, nontender. EXTREMITIES: With positive edema. NEUROLOGIC: Awake, responds appropriately. ASSESSMENT AND PLAN: 1. Hypoxemic respiratory failure, status post tracheostomy, vent dependent. 2. Atrial fibrillation, chronic, on anticoagulation. 3. Renal failure on dialysis. 4. History of pulmonary hypertension, possible ASD. 5. Status post sepsis and pneumonia, currently improved. 6. Debility. RECOMMENDATIONS: Continue the vent support. Continue anticoagulation as tolerated. Dialysis as per renal. Antibiotic is managed as per internal medicine. Otherwise, she will be continued as tolera graciela. Dictated By: AMANDA PINTO MD AV/ARNOLDO Conf#: [id number] DID#: [id number] CC: RUDDY GEE DO;*EndCC*
[2016-11-08] MEDS: LANSOPRAZOLE 30 MG CAP PO SCH (06:18)
[2016-11-08] MEDS: METOCLOPRAMIDE 10 MG INJ IV SCH ×4 (06:18→23:02)
[2016-11-08 07:11] LABS: BASOPHIL # 0.1 10^3/ul (0.0-0.1); BASOPHILS % 0.6 % (0.0-2.0); EOSINOPHILS # 0.2 10^3/ul (0.0-0.5); EOSINOPHILS % 1.7 % (0.0-7.0); HEMATOCRIT 25.6 % (37.0-47.0); HEMOGLOBIN 8.3 g/dl (12.0-16.0); LYMPHOCYTES % 18.5 % (15.0-51.0); MEAN CORPUSCULAR HEMOGLOBIN 32.2 pg (29.0-33.0); MEAN CORPUSCULAR HGB CONC 32.2 g/dl (32.0-37.0); MEAN CORPUSCULAR VOLUME 100.1 fl (82.0-101.0); MEAN PLATELET VOLUME 7.3 fl (7.4-10.4); MONOCYTE # 0.8 10^3/ul (0.3-0.9); MONOCYTES % 7.6 % (0.0-11.0); NEUTROPHIL # 7.6 10^3/ul (1.6-7.5); NEUTROPHILS % 71.6 % (39.0-77.0); PLATELET COUNT 237 10^3/UL (140-440); RED BLOOD COUNT 2.56 10^6/ul (4.20-5.40); RED CELL DISTRIBUTION WIDTH 17.9 % (11.5-14.5); UNCORRECTED WBC 10.6 10^3/ul (4.8-10.8); WHITE BLOOD COUNT 10.6 10^3/ul (4.8-10.8)
[2016-11-08 07:13] LABS: CONDITION 1; LH ANALYZER COMMENTS 1
[2016-11-08 07:42] LABS: POTASSIUM 4.3 mmol/L (3.5-5.1)
[2016-11-08 07:45] LABS: CREATININE 1.05 mg/dl (0.44-1.00)
[2016-11-08 07:46] LABS: CALCIUM 8.4 mg/dl (8.4-10.2); MAGNESIUM 1.9 mg/dl (1.7-2.5); PHOSPHORUS 2.5 mg/dl (2.5-4.9)
[2016-11-08] MEDS: LEVETIRACETAM IV 500 MG in DEXTROSE 5% 100 ML IVPB SCH ×2 (08:51→20:09)
[2016-11-08] MEDS: APIXABAN 5 MG TABLET GTB SCH ×2 (08:51→20:09)
[2016-11-08] MEDS: PRAMOXINE 1% 15 GM RECT FOAM PR SCH ×3 (08:51→20:09)
[2016-11-08] MEDS: SILDENAFIL 20 MG TAB GTB SCH ×3 (08:53→20:09)
[2016-11-08] MEDS: COLLAGENASE 30 GM TUBE TOP SCH (09:03)
[2016-11-08] MEDS: HYDROCORTISONE 1% 28 GM CR TOP SCH ×2 (09:03→20:09)
[2016-11-08] MEDS: MUPIROCIN 2% 22 GM OINT TOP SCH ×2 (09:03→20:09)
[2016-11-08] MEDS: BUDESONIDE (NEB) 0.5MG/2ML AMP HHN SCH ×2 (09:21→20:17)
--- NOTE | 2016-11-08 11:14 | CONS ---
Date/Time of Note Date/Time of Note DATE: 11/08/16 TIME: 11:14 Consult Date/Type/Reason Admit Date/Time Sep 17, 2016 at 18:49 Type of Consultation: Pulm Subjective comfortable Objective Vital Signs Date Time Temp Pulse Resp B/P Pulse Ox O2 Delivery O2 Flow Rate FiO2 11/08/16 09:48 40 11/08/16 09:24 106 17 98 11/08/16 07:40 97.7 97/47 11/06/16 04:06 Mechanical Ventilator Intake and Output 11/07/16 11/07/16 11/08/16 14:59 22:59 06:59 Intake Total 1200 ml Output Total 2000 ml Balance -800 ml PHYSICAL EXAMINATION GENERAL: Elderly lady on mechanical ventilation comfortable VITAL SIGNS: see below. HEENT: Pupils equal, round, and reactive to light. Tracheostomy site clean and intact. CARDIAC: S1, S2 CHEST: Diminished air entry bilaterally. ABDOMEN: Mildly distended. Decreased bowel sounds EXTREMITIES: No cyanosis, clubbing edema +1 NEUROLOGIC: Unable to assess Results/Medications Result Diagram: 11/08/16 0613 11/08/16 0613 Results 24 hrs Laboratory Tests Test 11/08/16 06:13 Anion Gap 12 Basophils # 0.1 Basophils % 0.6 Blood Morphology Comment Blood Urea Nitrogen 32 H Calcium Level 8.4 Carbon Dioxide Level 32 H Chloride Level 97 Creatinine 1.05 H Eosinophils # 0.2 Eosinophils % 1.7 Glucose Level 99 Hematocrit 25.6 L Hemoglobin 8.3 L Lymphocytes # 2.0 Lymphocytes % 18.5 Magnesium Level 1.9 Mean Corpuscular Hemoglobin 32.2 Mean Corpuscular Hemoglobin Concent 32.2 Mean Corpuscular Volume 100.1 Mean Platelet Volume 7.3 L Monocytes # 0.8 Monocytes % 7.6 Neutrophils # 7.6 H Neutrophils % 71.6 Nucleated Red Blood Cells # 0.0 Nucleated Red Blood Cells % 0.0 Phosphorus Level 2.5 Platelet Count 237 Potassium Level 4.3 Red Blood Count 2.56 L Red Cell Distribution Width 17.9 H Sodium Level 137 White Blood Count 10.6 Medications Current Medications Levetiracetam/ Dextrose (Keppra Iv/D5W) 105 ml @ 420 mls/hr Q12 IVPB Last administered on 11/08/16at 08:51; Admin Dose 420 MLS/HR; Start 09/18/16 at 09: 00 Collagenase (Santyl) 1 applic DAILY TOP Last administered on 11/08/16 09:03; Admin Dose 1 APPLIC; Start 09/18/16 at 09:00 Acetaminophen (Tylenol Liquid) 650 mg Q4H PRN NGT PAIN AND OR ELEVATED TEMP Last administered on 09/29/16at 12:07; Admin Dose 650 MG; Start 09/18/16 at 08: 00 Bisacodyl (Dulcolax Supp) 10 mg DAILY PRN [place] CONSTIPATION; Start 09/18/16 at 08:00 Mupirocin (Bactroban) Apply to bilateral nares ... BID TOP Last administered on 11/08/16 09:03; Admin Dose 1 APPLIC; Start 09/18/16 at 09:00 Mirtazapine (Remeron) 7.5 mg HS GTB Last administered on 11/07/16 20:18; Admin Dose 7.5 MG; Start 09/18/16 at 21:00 Ondansetron HCl (Zofran Inj) 4 mg Q4H PRN IV NAUSEA AND/OR VOMITING; Start 08/24 at 08:00 Morphine Sulfate (morphine) 2 mg Q3H PRN IV PAIN LEVEL 6-10 Last administered on 11/05/16 04:47; Admin Dose 2 MG; Start 09/18/16 at 08:00 Lorazepam (Ativan) 0.5 mg Q3H PRN IV ANXIETY Last administered on 11/04/16at 20 :12; Admin Dose 0.5 MG; Start 09/18/16 at 08:00 IV Flush (NS 10 ml) 10 ml PRN PRN IV IV PROTOCOL Last administered on at 06:01; Admin Dose 10 ML; Start 09/18/16 at 13:00 Lansoprazole (Prevacid) 30 mg DAILY@06 PO Last administered on 11/08/16 06:18 ; Admin Dose 30 MG; Start 09/27/16 at 06:00 Apixaban (Eliquis) 2.5 mg BID GTB Last administered on 11/08/16 08:51; Admin Dose 2.5 MG; Start 09/30/16 at 09:00; Status Future hold Metoclopramide HCl (Reglan) 5 mg Q6 IV Last administered on 12/31/16at 06:18; Admin Dose 5 MG; Start 09/30/16 at 12:00 Sildenafil Citrate (Revatio) 20 mg TID GTB Last administered on 11/07/16at 12: 39; Admin Dose 20 MG; Start 10/08/16 at 10:45 Pramoxine HCl (Proctofoam 1%) 1 applic TID [place] Last administered on 11/08/16at 08:51; Admin Dose 1 APPLIC; Start 10/10/16 at 21:00 Hydrocortisone (Hydrocortisone 1% Cr) 1 applic BID TOP Last administered on at 09:03; Admin Dose 1 APPLIC; Start 10/30/16 at 15:30 Diphenhydramine HCl (Benadryl) 25 mg Q8H PRN PO ITCHING; Start 10/30/16 at 15: 00 Assessment/Plan Chief Complaint/Hosp Course IMPRESSION AND PLAN: 1. Ventilator-dependent respiratory failure. 2. Status post septic shock. 3. Polymicrobial sepsis. Now normal white blood cell count 4. End-stage renal failure on hemodialysis. 5. G tube malfunction / leak PLAN: 1. Continue vent support. 2. Continue ID recommendations. 3. Continue wound care. 4. Continue DVT and GI prophylaxis. 5. GI recs Discharge planning. Problems: JULIA HERNANDEZ MD, [facility] Nov 08, 2016 11:14
--- NOTE | 2016-11-08 13:57 | PN ---
DATE: 11/08/2016 SUBJECTIVE: The patient is stable, no acute events overnight. No fevers, chills, nausea, or vomiti ng. OBJECTIVE: VITAL SIGNS: Blood pressure is 104/45, respiratory rate 20, pulse 90, temperature 97.8. HEENT: Head is normocephalic. NECK: Supple. HEART: Regular rate. LUNGS: Show diminished breath sounds at base. ABDOMEN: Soft, nontender to palpation. No rebound or guarding. EXTREMITIES: Negative for clubbing, cyanosis. No edema. DERMATOLOGIC: No rashes. MUSCULOSKELETAL: No joint effusions. NEUROLOGIC: No change in exam. MEDICATIONS: The patient's medications have been reviewed. LABORATORY DATA: Shows sodium 137, potassium 4.3, bicarbonate 32, BUN 13, creatinine 1.05. White c ount 10.6, hemoglobin 9.3, hematocrit 25.6, platelet count is 237. ASSESSMENT AND PLAN: 1. Sepsis secondary to bacteremia. Patient is completing antibiotic course. 2. End-stage renal disease. The patient has had hemodialysis yesterday, tolerated well. Plan for possible dialysis on Thursday. 3. Abdominal ascites, improved. Continue to monitor. Follow up with GI. 4. Pulmonary hypertension. Continue sildenafil. 5. Decubitus wound. Continue wound care. 6. Anemia. Continue to monitor hemoglobin and hematocrit levels. Continue Epogen following dialys is. 7. Seizure disorder. Continue Keppra. 8. Dysphagia, continue G-tube feeding. 9. Ventilator-dependent respiratory failure. Vent settings have been reviewed. ABG has been revie thu. Continue to monitor. 10. Atrial fibrillation, rate controlled. Continue medical management. 11. Encephalopathy. No change. 12. Gastrointestinal prophylaxis. Continue proton pump inhibitor. DISPOSITION. The patient is pending transfer to subacute facility, when bed is available. Dictated By: RUDDY BUSTILLOS/ARNOLDO Conf#: [id number] DID#: [id number]
[2016-11-08] MEDS: DIPHENHYDRAMINE 25 MG CAP PO PRN (15:39)
[2016-11-08] MEDS: MIRTAZAPINE 15 MG TAB GTB SCH (20:09)
[2016-11-09] VITALS (24 sets, daily range): BP systolic 97–125; BP diastolic 42–65; PULSE 80–120; RESP 12–19
[2016-11-09] MEDS: IPRATROPIUM (HFA) 12.9 GM INHALER INH SCH ×6 (01:22→19:59)
[2016-11-09] MEDS: LEVALBUTEROL (HFA) 15 GM INHALER INH SCH ×6 (01:22→19:59)
[2016-11-09] MEDS: LANSOPRAZOLE 30 MG CAP PO SCH (05:03)
[2016-11-09] MEDS: METOCLOPRAMIDE 10 MG INJ IV SCH ×4 (05:03→23:29)
[2016-11-09] MEDS: BUDESONIDE (NEB) 0.5MG/2ML AMP HHN SCH ×2 (07:57→19:43)
[2016-11-09] MEDS: COLLAGENASE 30 GM TUBE TOP SCH ×2 (09:00→20:06)
[2016-11-09] MEDS: PRAMOXINE 1% 15 GM RECT FOAM PR SCH ×3 (09:00→20:05)
[2016-11-09] MEDS: LEVETIRACETAM IV 500 MG in DEXTROSE 5% 100 ML IVPB SCH ×2 (09:00→20:07)
[2016-11-09] MEDS: APIXABAN 5 MG TABLET GTB SCH ×2 (09:49→20:06)
[2016-11-09] MEDS: HYDROCORTISONE 1% 28 GM CR TOP SCH ×2 (09:49→20:05)
[2016-11-09] MEDS: SILDENAFIL 20 MG TAB GTB SCH ×3 (09:49→20:06)
[2016-11-09] MEDS: MUPIROCIN 2% 22 GM OINT TOP SCH ×2 (09:49→20:05)
--- NOTE | 2016-11-09 11:18 | CONS ---
Date/Time of Note Date/Time of Note DATE: 11/09/16 TIME: :17 Consult Date/Type/Reason Admit Date/Time Sep 17, 2016 at 18:49 Type of Consultation: Pulm Subjective Pulmonary status remained stable Objective Vital Signs Date Time Temp Pulse Resp B/P Pulse Ox O2 Delivery O2 Flow Rate FiO2 11/09/16 08:43 99 11/09/16 07:58 99.3 19 125/65 98 11/09/16 07:57 40 11/06/16 04:06 Mechanical Ventilator Intake and Output 11/08/16 11/08/16 11/09/16 15:00 23:00 07:00 Intake Total 650 ml 550 ml Balance 650 ml 550 ml PHYSICAL EXAMINATION GENERAL: Elderly lady on mechanical ventilation comfortable VITAL SIGNS: see below. HEENT: Pupils equal, round, and reactive to light. Tracheostomy site clean and intact. CARDIAC: S1, S2 CHEST: Diminished air entry bilaterally. ABDOMEN: Mildly distended. Decreased bowel sounds EXTREMITIES: No cyanosis, clubbing edema +1 NEUROLOGIC: Unable to assess Results/Medications Result Diagram: 11/08/1661211/08/16612 Medications Current Medications Levetiracetam/ Dextrose (Keppra Iv/D5W) 105 ml @ 420 mls/hr Q12 IVPB Last administered on 11/09/16 09:00; Admin Dose 420 MLS/HR; Start 09/18/16 at 09:00 Collagenase (Santyl) 1 applic DAILY TOP Last administered on 11/08/16at 09:03; Admin Dose 1 APPLIC; Start 09/18/16 at 09:00 Acetaminophen (Tylenol Liquid) 650 mg Q4H PRN NGT PAIN AND OR ELEVATED TEMP Last administered on 09/29/16at 12:07; Admin Dose 650 MG; Start 09/18/16 at 08: 00 Bisacodyl (Dulcolax Supp) 10 mg DAILY PRN [place] CONSTIPATION; Start 09/18/16 at 08:00 Mupirocin (Bactroban) Apply to bilateral nares ... BID TOP Last administered on 11/09/16 09:49; Admin Dose 1 APPLIC; Start 09/18/16 at 09:00 Mirtazapine (Remeron) 7.5 mg HS GTB Last administered on 11/08/16at 20:09; Admin Dose 7.5 MG; Start 09/18/16 at 21:00 Ondansetron HCl (Zofran Inj) 4 mg Q4H PRN IV NAUSEA AND/OR VOMITING; Start 08/24 at 08:00 Morphine Sulfate (morphine) 2 mg Q3H PRN IV PAIN LEVEL 6-10 Last administered on 11/05/16at 04:47; Admin Dose 2 MG; Start 09/18/16 at 08:00 Lorazepam (Ativan) 0.5 mg Q3H PRN IV ANXIETY Last administered on 11/04/16at 20 :12; Admin Dose 0.5 MG; Start 09/18/16 at 08:00 IV Flush (NS 10 ml) 10 ml PRN PRN IV IV PROTOCOL Last administered on at 06:01; Admin Dose 10 ML; Start 09/18/16 at 13:00 Lansoprazole (Prevacid) 30 mg DAILY@06 PO Last administered on 11/09/16 05:03; Admin Dose 30 MG; Start 09/27/16 at 06:00 Apixaban (Eliquis) 2.5 mg BID GTB Last administered on 11/09/16 09:49; Admin Dose 2.5 MG; Start 09/30/16 at 09:00; Status Future hold Metoclopramide HCl (Reglan) 5 mg Q6 IV Last administered on 11/09/16 05:03; Admin Dose 5 MG; Start 09/30/16 at 12:00 Sildenafil Citrate (Revatio) 20 mg TID GTB Last administered on 11/09/16 09:49 ; Admin Dose 20 MG; Start 10/08/16 at 10:45 Pramoxine HCl (Proctofoam 1%) 1 applic TID [place] Last administered on 11/08/16at 20:09; Admin Dose 1 APPLIC; Start 10/10/16 at 21:00 Hydrocortisone (Hydrocortisone 1% Cr) 1 applic BID TOP Last administered on 11/09 09:49; Admin Dose 1 APPLIC; Start 10/30/16 at 15:30 Diphenhydramine HCl (Benadryl) 25 mg Q8H PRN PO ITCHING Last administered on at 15:39; Admin Dose 25 MG; Start 10/30/16 at 15:00 Assessment/Plan Chief Complaint/Hosp Course IMPRESSION AND PLAN: 1. Ventilator-dependent respiratory failure. 2. Status post septic shock. 3. Polymicrobial sepsis. Now normal white blood cell count 4. End-stage renal failure on hemodialysis. 5. G tube malfunction / leak PLAN: 1. Continue vent support. 2. Continue ID recommendations. 3. Continue wound care. 4. Continue DVT and GI prophylaxis. 5. GI recs Discharge planning. Problems: JULIA HERNANDEZ MD, [facility] Nov 09, 2016 11:17
[2016-11-09] MEDS: LORAZEPAM 2 MG INJ IV PRN (14:34)
--- NOTE | 2016-11-09 18:10 | PN ---
DATE: 11/09/2016 SUBJECTIVE: The patient is stable, no acute events overnight. No fevers, chills, nausea, or vomiti ng. OBJECTIVE: VITAL SIGNS: Blood pressure is 125/65, respiration 19, pulse 104, temperature 99.3. HEENT: Head is normocephalic. NECK: Supple. HEART: Regular rate. LUNGS: Show diminished breath sounds at base. ABDOMEN: Soft, nontender to palpation. No rebound or guarding. EXTREMITIES: Negative for clubbing, cyanosis, no edema. DERMATOLOGIC: No rashes. MUSCULOSKELETAL: No joint effusions. NEUROLOGIC: No change in exam. MEDICATIONS: The patient's medications have been reviewed. LABORATORY DATA: Have been reviewed. No other labs. ASSESSMENT AND PLAN: 1. Sepsis secondary to bacteremia. The patient has completed antibiotic course. 2. End-stage renal disease. Plan for hemodialysis tomorrow. 3. Abdominal ascites, improved. Continue to monitor. Follow up with GI and get paracentesis as ne eded. 4. Pulmonary hypertension. Continue sildenafil. 5. Decubitus wound. Continue wound care. 6. Anemia. Continue to monitor hemoglobin and hematocrit levels. Give Epogen following dialysis. 7. Seizure disorder. Continue Keppra. 8. Dysphagia status post percutaneous endoscopic gastrostomy. Continue tube feeding. 9. Ventilator dependent respiratory failure. Vent settings have been reviewed. ABG has been revie wed. Continue to monitor. 10. Atrial fibrillation, rate controlled. Continue medical management. 11. Encephalopathy. No change. 12. Gastrointestinal and deep venous thrombosis prophylaxis. Continue proton pump inhibitor and El iquis. Dictated By: RUDDY BUSTILLOS/ARNOLDO Conf#: [id number] DID#: [id number]
[2016-11-09] MEDS: MIRTAZAPINE 15 MG TAB GTB SCH (20:06)
[2016-11-10] VITALS (32 sets, daily range): BP systolic 88–119; BP diastolic 45–58; PULSE 81–101; RESP 12–20
[2016-11-10] MEDS: IPRATROPIUM (HFA) 12.9 GM INHALER INH SCH ×6 (02:13→21:08)
[2016-11-10] MEDS: LEVALBUTEROL (HFA) 15 GM INHALER INH SCH ×6 (02:14→21:09)
[2016-11-10] MEDS: METOCLOPRAMIDE 10 MG INJ IV SCH ×4 (05:03→23:43)
[2016-11-10] MEDS: LANSOPRAZOLE 30 MG CAP PO SCH (05:03)
[2016-11-10 06:18] LABS: EOSINOPHILS # 0.1 10^3/ul (0.0-0.5); EOSINOPHILS % 0.9 % (0.0-7.0); HEMATOCRIT 24.7 % (37.0-47.0); HEMOGLOBIN 7.9 g/dl (12.0-16.0); LYMPHOCYTES # 1.5 10^3/ul (0.8-2.9); LYMPHOCYTES % 10.9 % (15.0-51.0); MEAN CORPUSCULAR HEMOGLOBIN 32.3 pg (29.0-33.0); MEAN CORPUSCULAR HGB CONC 32.1 g/dl (32.0-37.0); MEAN CORPUSCULAR VOLUME 100.6 fl (82.0-101.0); MEAN PLATELET VOLUME 7.5 fl (7.4-10.4); MONOCYTE # 1.1 10^3/ul (0.3-0.9); MONOCYTES % 7.9 % (0.0-11.0); NEUTROPHIL # 10.8 10^3/ul (1.6-7.5); NEUTROPHILS % 80.3 % (39.0-77.0); PLATELET COUNT 226 10^3/UL (140-440); RED BLOOD COUNT 2.46 10^6/ul (4.20-5.40); RED CELL DISTRIBUTION WIDTH 18.3 % (11.5-14.5); UNCORRECTED WBC 13.4 10^3/ul (4.8-10.8); WHITE BLOOD COUNT 13.4 10^3/ul (4.8-10.8)
[2016-11-10 06:27] LABS: CONDITION 1; LH ANALYZER COMMENTS 1
[2016-11-10 06:48] LABS: POTASSIUM 5.1 mmol/L (3.5-5.1)
[2016-11-10 06:50] LABS: CREATININE 1.6 mg/dl (0.44-1.00)
[2016-11-10 06:51] LABS: CALCIUM 8.8 mg/dl (8.4-10.2); MAGNESIUM 1.9 mg/dl (1.7-2.5); PHOSPHORUS 3.3 mg/dl (2.5-4.9)
[2016-11-10] MEDS: COLLAGENASE 30 GM TUBE TOP SCH ×2 (09:00→11:36)
[2016-11-10] MEDS: SILDENAFIL 20 MG TAB GTB SCH ×3 (09:00→21:33)
[2016-11-10] MEDS: BUDESONIDE (NEB) 0.5MG/2ML AMP HHN SCH ×2 (09:00→20:00)
[2016-11-10] MEDS: APIXABAN 5 MG TABLET GTB SCH ×2 (09:34→21:33)
[2016-11-10] MEDS: LEVETIRACETAM IV 500 MG in DEXTROSE 5% 100 ML IVPB SCH ×2 (09:35→21:33)
[2016-11-10] MEDS: MUPIROCIN 2% 22 GM OINT TOP SCH ×2 (09:36→21:32)
[2016-11-10] MEDS: HYDROCORTISONE 1% 28 GM CR TOP SCH ×2 (09:37→21:33)
[2016-11-10] MEDS: PRAMOXINE 1% 15 GM RECT FOAM PR SCH ×3 (09:38→21:32)
--- NOTE | 2016-11-10 09:46 | PN ---
DATE: 11/10/2016 SUBJECTIVE: The patient is stable, no acute events overnight. No hemoptysis, hematemesis or hemato chezia. The patient is scheduled for dialysis today. OBJECTIVE: VITAL SIGNS: Blood pressure 99/45, respirations 14, pulse 97, temperature 98.0. I's and O's reviewed. HEENT: Head is normocephalic. NECK: Shows trach. HEART: Regular rate. LUNGS: Show diminished breath sounds at base. ABDOMEN: Soft, nontender to palpation. Positive distention. No rebound or guarding. EXTREMITIES: Negative for clubbing, cyanosis. Positive edema. DERMATOLOGIC: No rashes. MUSCULOSKELETAL: No joint effusions. NEUROLOGIC: No change in exam. MEDICATIONS: The patient's medications have been reviewed. LABORATORY DATA: Sodium 134, potassium 5.1, chloride 94, bicarbonate 33, BUN 54, creatinine 1.60. White count is 13.4, hemoglobin 7.9, hematocrit 24.7, platelet count is 226. ASSESSMENT AND PLAN: 1. Sepsis secondary to bacteremia. The patient has completed antibiotic course. We will continue to monitor closely off antibiotics. Repeat cultures have been negative. 2. Leukocytosis, likely reactive. Continue to monitor. 3. End-stage renal disease. Plan for dialysis today and tomorrow for solute clearance and volume r emoval. 4. Abdominal ascites, etiology secondary to end-stage renal disease, right-sided heart failure. Co ntinue ultrafiltration dialysis. Follow up with GI. May consider paracentesis. 5. Pulmonary hypertension. Continue sildenafil. 6. Decubitus wound. Continue wound care. 7. Anemia of end-stage renal disease, with possible component of iron deficiency. The patient will be started on iron of Ferrlecit. Continue Epogen. Monitor H and H levels closely. 8. Seizure disorder. Continue Keppra. 9. Dysphagia status post percutaneous endoscopic gastrostomy. Continue tube feeding. 10. Ventilator dependent respiratory failure. Vent settings have been reviewed. ABG is reviewed. Continue to monitor. 11. Atrial fibrillation, rate controlled. Continue medical management. 12. Encephalopathy. No change. 13. Gastrointestinal and deep venous thrombosis prophylaxis. Continue proton pump inhibitor and El iquis. Dictated By: RUDDY BUSTILLOS/ARNOLDO Conf#: [id number] [facility]#: [id number]
[2016-11-10] MEDS: DIPHENHYDRAMINE 25 MG CAP PO PRN (11:21)
[2016-11-10] MEDS: SOD FERRIC GLUC COMPLX 125 MG in SOD CHLORIDE 0.9% 100 ML IVPB SCH (11:21)
--- NOTE | 2016-11-10 13:09 | CONS ---
Date/Time of Note Date/Time of Note DATE: 11/10/16 TIME: 13:07 Consult Date/Type/Reason Admit Date/Time Sep 17, 2016 at 18:49 Type of Consultation: Pulm Objective Vital Signs Date Time Temp Pulse Resp B/P Pulse Ox O2 Delivery O2 Flow Rate FiO2 11/10/16 12:42 101 11/10/16 12:17 98.0 18 88/48 99 11/10/16 11:46 40 Intake and Output 11/09/16 11/09/16 11/10/16 15:00 23:00 07:00 Intake Total 810 ml Balance 810 ml Results/Medications Result Diagram: 11/10/16 0510 11/10/16 0510 Results 24 hrs Laboratory Tests Test 11/10/16 05:10 Anion Gap 12 Basophils # 0.0 Basophils % 0.0 Blood Morphology Comment Blood Urea Nitrogen 54 H Calcium Level 8.8 Carbon Dioxide Level 33 H Chloride Level 94 L Creatinine 1.60 H Eosinophils # 0.1 Eosinophils % 0.9 Glucose Level 106 Hematocrit 24.7 L Hemoglobin 7.9 L Lymphocytes # 1.5 Lymphocytes % 10.9 L Magnesium Level 1.9 Mean Corpuscular Hemoglobin 32.3 Mean Corpuscular Hemoglobin Concent 32.1 Mean Corpuscular Volume 100.6 Mean Platelet Volume 7.5 Monocytes # 1.1 H Monocytes % 7.9 Neutrophils # 10.8 H Neutrophils % 80.3 H Nucleated Red Blood Cells # 0.0 Nucleated Red Blood Cells % 0.0 Phosphorus Level 3.3 Platelet Count 226 Potassium Level 5.1 Red Blood Count 2.46 L Red Cell Distribution Width 18.3 H Sodium Level 134 L White Blood Count 13.4 #H Medications Current Medications Levetiracetam/ Dextrose (Keppra Iv/D5W) 105 ml @ 420 mls/hr Q12 IVPB Last administered on 11/10/16 09:35; Admin Dose 420 MLS/HR; Start 09/18/16 at 09:00 Collagenase (Santyl) 1 applic DAILY TOP Last administered on 11/10/16 11:36; Admin Dose 1 APPLIC; Start 09/18/16 at 09:00 Acetaminophen (Tylenol Liquid) 650 mg Q4H PRN NGT PAIN AND OR ELEVATED TEMP Last administered on 09/29/16at 12:07; Admin Dose 650 MG; Start 09/18/16 at 08: 00 Bisacodyl (Dulcolax Supp) 10 mg DAILY PRN [place] CONSTIPATION; Start 09/18/16 at 08:00 Mupirocin (Bactroban) Apply to bilateral nares ... BID TOP Last administered on 11/10/16 09:36; Admin Dose 1 APPLIC; Start 09/18/16 at 09:00 Mirtazapine (Remeron) 7.5 mg HS GTB Last administered on 11/09/16 20:06; Admin Dose 7.5 MG; Start 09/18/16 at 21:00 Ondansetron HCl (Zofran Inj) 4 mg Q4H PRN IV NAUSEA AND/OR VOMITING; Start 08/24 at 08:00 Morphine Sulfate (morphine) 2 mg Q3H PRN IV PAIN LEVEL 6-10 Last administered on 11/05/16at 04:47; Admin Dose 2 MG; Start 09/18/16 at 08:00 Lorazepam (Ativan) 0.5 mg Q3H PRN IV ANXIETY Last administered on 11/09/16 14: 34; Admin Dose 0.5 MG; Start 09/18/16 at 08:00 IV Flush (NS 10 ml) 10 ml PRN PRN IV IV PROTOCOL Last administered on at 06:01; Admin Dose 10 ML; Start 09/18/16 at 13:00 Lansoprazole (Prevacid) 30 mg DAILY@06 PO Last administered on 11/10/16 05:03; Admin Dose 30 MG; Start 09/27/16 at 06:00 Apixaban (Eliquis) 2.5 mg BID GTB Last administered on 11/10/16 09:34; Admin Dose 2.5 MG; Start 09/30/16 at 09:00; Status Future hold Metoclopramide HCl (Reglan) 5 mg Q6 IV Last administered on 11/10/16 11:21; Admin Dose 5 MG; Start 09/30/16 at 12:00 Sildenafil Citrate (Revatio) 20 mg TID GTB Last administered on 11/09/16 13:45 ; Admin Dose 20 MG; Start 10/08/16 at 10:45 Pramoxine HCl (Proctofoam 1%) 1 applic TID [place] Last administered on 11/10/16 09: 38; Admin Dose 1 APPLIC; Start 10/10/16 at 21:00 Hydrocortisone (Hydrocortisone 1% Cr) 1 applic BID TOP Last administered on 11/10 09:37; Admin Dose 1 APPLIC; Start 10/30/16 at 15:30 Diphenhydramine HCl 25 mg 25 mg Q8H PRN PO ITCHING Last administered on 11:21; Admin Dose 25 MG; Start 10/30/16 at 15:00 Ferric Sodium Gluconate Complex/ Sodium Chloride (Ferrlecit/NS) 110 ml @ 110 mls/hr Q24H IVPB Last administered on 11/10/16 11:21; Admin Dose 110 MLS/HR; Start 11/10/16 at 11:00; Stop 11/14/16 at 11:59 Assessment/Plan Chief Complaint/Hosp Course IMPRESSION AND PLAN: 1. Ventilator-dependent respiratory failure. 2. Status post septic shock. 3. Polymicrobial sepsis. Now normal white blood cell count 4. End-stage renal failure on hemodialysis. 5. G tube malfunction / leak PLAN: 1. Continue vent support. 2. Continue ID recommendations. 3. Continue wound care. 4. Continue DVT and GI prophylaxis. 5. GI recs Discharge planning. Problems: JULIA HERNANDEZ MD, [facility] Nov 10, 2016 13:09
[2016-11-10] MEDS: EPOETIN 10000 UNITS/1 ML INJ (ESRD) SC SCH (13:53)
[2016-11-10] MEDS: ALBUMIN HUMAN 25% 100 ML IV PRN (13:54)
[2016-11-10] MEDS: MIRTAZAPINE 15 MG TAB GTB SCH (21:33)
[2016-11-11] VITALS (30 sets, daily range): BP systolic 91–126; BP diastolic 41–62; PULSE 73–105; RESP 12–21
[2016-11-11] MEDS: DIPHENHYDRAMINE 25 MG CAP PO PRN ×2 (00:55→23:13)
[2016-11-11] MEDS: LEVALBUTEROL (HFA) 15 GM INHALER INH SCH ×6 (01:12→21:14)
[2016-11-11] MEDS: IPRATROPIUM (HFA) 12.9 GM INHALER INH SCH ×6 (01:12→21:14)
[2016-11-11] MEDS: LORAZEPAM 2 MG INJ IV PRN (03:42)
[2016-11-11 05:54] LABS: BASOPHILS % 0.3 % (0.0-2.0); EOSINOPHILS # 0.1 10^3/ul (0.0-0.5); HEMATOCRIT 24.3 % (37.0-47.0); HEMOGLOBIN 7.7 g/dl (12.0-16.0); LYMPHOCYTES # 1.4 10^3/ul (0.8-2.9); LYMPHOCYTES % 13.6 % (15.0-51.0); MEAN CORPUSCULAR HEMOGLOBIN 31.8 pg (29.0-33.0); MEAN CORPUSCULAR HGB CONC 31.6 g/dl (32.0-37.0); MEAN CORPUSCULAR VOLUME 100.9 fl (82.0-101.0); MEAN PLATELET VOLUME 7.6 fl (7.4-10.4); MONOCYTES % 9.5 % (0.0-11.0); NEUTROPHIL # 7.9 10^3/ul (1.6-7.5); NEUTROPHILS % 75.6 % (39.0-77.0); PLATELET COUNT 217 10^3/UL (140-440); RED BLOOD COUNT 2.41 10^6/ul (4.20-5.40); RED CELL DISTRIBUTION WIDTH 18.2 % (11.5-14.5); UNCORRECTED WBC 10.4 10^3/ul (4.8-10.8); WHITE BLOOD COUNT 10.4 10^3/ul (4.8-10.8)
[2016-11-11 05:57] LABS: CONDITION 1; LH ANALYZER COMMENTS 1
[2016-11-11 06:11] LABS: POTASSIUM 4.1 mmol/L (3.5-5.1)
[2016-11-11 06:14] LABS: CREATININE 1.27 mg/dl (0.44-1.00)
[2016-11-11 06:15] LABS: CALCIUM 8.7 mg/dl (8.4-10.2); MAGNESIUM 1.9 mg/dl (1.7-2.5); PHOSPHORUS 3.1 mg/dl (2.5-4.9)
[2016-11-11] MEDS: METOCLOPRAMIDE 10 MG INJ IV SCH ×4 (06:29→23:13)
[2016-11-11] MEDS: LANSOPRAZOLE 30 MG CAP PO SCH (06:29)
[2016-11-11] MEDS: LEVETIRACETAM IV 500 MG in DEXTROSE 5% 100 ML IVPB SCH ×2 (08:15→21:58)
[2016-11-11] MEDS: APIXABAN 5 MG TABLET GTB SCH ×2 (08:15→21:50)
[2016-11-11] MEDS: PRAMOXINE 1% 15 GM RECT FOAM PR SCH ×3 (08:15→21:51)
[2016-11-11] MEDS: COLLAGENASE 30 GM TUBE TOP SCH ×2 (08:16→18:08)
[2016-11-11] MEDS: HYDROCORTISONE 1% 28 GM CR TOP SCH ×2 (08:16→21:52)
[2016-11-11] MEDS: MUPIROCIN 2% 22 GM OINT TOP SCH ×2 (08:16→21:52)
[2016-11-11] MEDS: SILDENAFIL 20 MG TAB GTB SCH ×3 (08:35→21:51)
[2016-11-11] MEDS: BUDESONIDE (NEB) 0.5MG/2ML AMP HHN SCH ×2 (09:00→20:00)
[2016-11-11] MEDS: SOD FERRIC GLUC COMPLX 125 MG in SOD CHLORIDE 0.9% 100 ML IVPB SCH (10:36)
--- NOTE | 2016-11-11 11:39 | PN ---
DATE: 11/11/2016 SUBJECTIVE: The patient is stable, no acute events overnight. No hemoptysis, hematemesis, hematoch ezia. The patient had hemodialysis yesterday, tolerated it well with 2.5 liters removed. No other e vents noted. OBJECTIVE: VITAL SIGNS: Blood pressure 102/49, respiration 19, pulse 98, temperature 97.6. HEENT: Head is normocephalic. NECK: Shows trach. HEART: Regular rate. LUNGS: Show diminished breath sounds at the base. Positive rhonchi. ABDOMEN: Distended, soft, nontender to palpation. EXTREMITIES: Positive for edema +2. DERMATOLOGIC: No rashes. MUSCULOSKELETAL: Positive decubitus wound. NEUROLOGIC: No change in exam. MEDICATIONS: The patient's medications have been reviewed. LABORATORY DATA: Shows sodium 134, potassium 4.1, chloride 94, bicarbonate 34, BUN 38, creatinine 1 .27. White count 10.4, hemoglobin 7.7, hematocrit 24.3, and platelet count is 217. ASSESSMENT AND PLAN: 1. Sepsis secondary to bacteremia. The patient has completed antibiotic course. White count has b een stable. We will continue to monitor. Repeat cultures have been negative. 2. Leukocytosis, improved. Continue to observe. 3. End-stage renal disease. The patient remains volume overloaded. We will have dialysis today fo r 2 hours to try ultrafiltration. 4. Abdominal ascites secondary to end-stage renal disease, right-sided heart failure. We will cont inue current medical management. Continue ultrafiltration dialysis. Follow up with GI regarding po ssible paracentesis. 5. Pulmonary hypertension. Continue Cetaphil. 6. Decubitus wound. Continue wound care. 7. Anemia with component of iron deficiency. The patient is on IV Ferrlecit. We will continue. Co ntinue Epogen. Monitor hemoglobin and hematocrit levels. 8. Seizure disorder. Continue Keppra. 9. Dysphagia, ____Continue tube feeding. 10. Ventilator dependent respiratory status. Vent settings have been reviewed. Arterial blood gas es have been reviewed. Continue to monitor. 11. Atrial fibrillation, rate controlled. Continue medical management. 12. Encephalopathy. No change. 13. GI and DVT prophylaxis. Continue PPI and Eliquis. Dictated By: RUDDY BUSTILLOS/ARNOLDO Conf#: [id number] [facility]#: [id number]
--- NOTE | 2016-11-11 13:03 | CONS ---
Date/Time of Note Date/Time of Note DATE: 11/11/16 TIME: 13:00 Assessment/Plan Assessment/Plan Additional Assessment/Plan ASSESSMENT: 1. Renal failure on dialysis. 2. Vent dependent respiratory failure. 3. Chronic obstructive pulmonary disease. 4. Atrial fibrillation. 5. Ascites, responding to dialysis,pt had last paracentesis on 10/14 6. Dysphagia 7. G-tube clean,no leakage,tolerating feeding 50 cc/hr,diabetasource 8. Anemia: stable, likely from anemia of chronic disease 9. Status post septic shock. 10. Diabetes mellitus. 11. Decubitus ulcer. 12. Congestive heart failure. 13. Seizure disorder. 14. pneumonia,s/p sepsis 15.pulmonary hypertension 16 persistent leucocytosis,better 17.pressure ulcer g tube site,healed 18.4+ pedal edema Plan continue antibiotics per ID Reglan for gastroparesis. G-tube site ,no leakage of formula,or even ascites fluid continue present care,dialysis, removal of fluid during dialysis Consultation Date/Type/Reason Admit Date/Time Sep 17, 2016 at 18:49 Type of Consultation: Pulm 24 HR Interval Summary Free Text/Dictation c/o pain rt, paraumbilical area Exam/Review of Systems Vital Signs Vitals Vital Signs Date Time Temp Pulse Resp B/P Pulse Ox O2 Delivery O2 Flow Rate FiO2 11/11/16 12:41 104 11/11/16 12:19 97.4 20 109/49 96 11/11/16 11:19 40 11/11/16 04:00 Mechanical Ventilator Intake and Output 11/10/16 11/10/16 11/11/16 15:00 23:00 07:00 Intake Total 500 ml 1937 ml 650 ml Output Total 3000 ml Balance -2500 ml 1937 ml 650 ml Exam Respiratory: clear to auscultation, normal air movement Cardiovascular: nl pulses, regular rate and rhythm Gastrointestinal: ascites, distended, soft Extremities: edema, pitting pedal edema Neurological: 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[employer]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 II-XII intact, nl mental status, nl speech, nl strength Results Result Diagram: 11/11/16 0505 11/11/16 0505 Results 24 hrs Laboratory Tests Test 11/11/16 05:05 Anion Gap 10 Basophils # 0.0 Basophils % 0.3 Blood Morphology Comment Blood Urea Nitrogen 38 #H Calcium Level 8.7 Carbon Dioxide Level 34 H Chloride Level 94 L Creatinine 1.27 H Eosinophils # 0.1 Eosinophils % 1.0 Glucose Level 100 Hematocrit 24.3 L Hemoglobin 7.7 L Lymphocytes # 1.4 Lymphocytes % 13.6 L Magnesium Level 1.9 Mean Corpuscular Hemoglobin 31.8 Mean Corpuscular Hemoglobin Concent 31.6 L Mean Corpuscular Volume 100.9 Mean Platelet Volume 7.6 Monocytes # 1.0 H Monocytes % 9.5 Neutrophils # 7.9 H Neutrophils % 75.6 Nucleated Red Blood Cells # 0.0 Nucleated Red Blood Cells % 0.0 Phosphorus Level 3.1 Platelet Count 217 Potassium Level 4.1 Red Blood Count 2.41 L Red Cell Distribution Width 18.2 H Sodium Level 134 L White Blood Count 10.4 # Medications Medications Current Medications Levetiracetam/ Dextrose (Keppra Iv/D5W) 105 ml @ 420 mls/hr Q12 IVPB Last administered on 11/11/16 08:15; Admin Dose 420 MLS/HR; Start 09/18/16 at 09:00 Collagenase (Santyl) 1 applic DAILY TOP Last administered on 11/10/16 11:36; Admin Dose 1 APPLIC; Start 09/18/16 at 09:00 Acetaminophen (Tylenol Liquid) 650 mg Q4H PRN NGT PAIN AND OR ELEVATED TEMP Last administered on 09/29/16at 12:07; Admin Dose 650 MG; Start 09/18/16 at 08: 00 Bisacodyl (Dulcolax Supp) 10 mg DAILY PRN [place] CONSTIPATION; Start 09/18/16 at 08:00 Mupirocin (Bactroban) Apply to bilateral nares ... BID TOP Last administered on 11/11/16 08:16; Admin Dose 1 APPLIC; Start 09/18/16 at 09:00 Mirtazapine (Remeron) 7.5 mg HS GTB Last administered on 11/10/16 21:33; Admin Dose 7.5 MG; Start 09/18/16 at 21:00 Ondansetron HCl (Zofran Inj) 4 mg Q4H PRN IV NAUSEA AND/OR VOMITING; Start 08/24 at 08:00 Morphine Sulfate (morphine) 2 mg Q3H PRN IV PAIN LEVEL 6-10 Last administered on 11/05/16at 04:47; Admin Dose 2 MG; Start 09/18/16 at 08:00 Lorazepam (Ativan) 0.5 mg Q3H PRN IV ANXIETY Last administered on 11/11/16 03: 42; Admin Dose 0.5 MG; Start 09/18/16 at 08:00 IV Flush (NS 10 ml) 10 ml PRN PRN IV IV PROTOCOL Last administered on at 06:01; Admin Dose 10 ML; Start 09/18/16 at 13:00 Lansoprazole (Prevacid) 30 mg DAILY@06 PO Last administered on 11/11/16 06:29; Admin Dose 30 MG; Start 09/27/16 at 06:00 Apixaban (Eliquis) 2.5 mg BID GTB Last administered on 11/11/16 08:15; Admin Dose 2.5 MG; Start 09/30/16 at 09:00; Status Future hold Metoclopramide HCl (Reglan) 5 mg Q6 IV Last administered on 11/11/16 12:10; Admin Dose 5 MG; Start 09/30/16 at 12:00 Sildenafil Citrate (Revatio) 20 mg TID GTB Last administered on 11/10/16 21:33 ; Admin Dose 20 MG; Start 10/08/16 at 10:45 Pramoxine HCl (Proctofoam 1%) 1 applic TID [place] Last administered on 11/11/16 08: 15; Admin Dose 1 APPLIC; Start 10/10/16 at 21:00 Hydrocortisone (Hydrocortisone 1% Cr) 1 applic BID TOP Last administered on 11/11 08:16; Admin Dose 1 APPLIC; Start 10/30/16 at 15:30 Diphenhydramine HCl 25 mg 25 mg Q8H PRN PO ITCHING Last administered on 00:55; Admin Dose 25 MG; Start 10/30/16 at 15:00 Ferric Sodium Gluconate Complex/ Sodium Chloride (Ferrlecit/NS) 110 ml @ 110 mls/hr Q24H IVPB Last administered on 11/11/16 10:36; Admin Dose 110 MLS/HR; Start 11/10/16 at 11:00; Stop 11/14/16 at 11:59 ANNABEL CISSE MD Nov 11, 2016 13:02
[2016-11-11] MEDS: ALBUMIN HUMAN 25% 100 ML IV PRN (14:18)
--- NOTE | 2016-11-11 16:08 | CONS ---
Date/Time of Note Date/Time of Note DATE: 11/11/16 TIME: 16:07 Consult Date/Type/Reason Admit Date/Time Sep 17, 2016 at 18:49 Type of Consultation: Pulm Subjective Comfortable. Objective Vital Signs Date Time Temp Pulse Resp B/P Pulse Ox O2 Delivery O2 Flow Rate FiO2 11/11/16 15:30 90 11/11/16 14:50 19 98 40 11/11/16 12:19 97.4 109/49 11/11/16 04:00 Mechanical Ventilator Intake and Output 11/10/16 11/10/16 11/11/16 15:00 23:00 07:00 Intake Total 500 ml 1937 ml 650 ml Output Total 3000 ml Balance -2500 ml 1937 ml 650 ml PHYSICAL EXAMINATION GENERAL: Elderly lady on mechanical ventilation comfortable VITAL SIGNS: see below. HEENT: Pupils equal, round, and reactive to light. Tracheostomy site clean and intact. CARDIAC: S1, S2 CHEST: Diminished air entry bilaterally. ABDOMEN: Mildly distended. Decreased bowel sounds EXTREMITIES: No cyanosis, clubbing edema +1 NEUROLOGIC: Unable to assess Results/Medications Result Diagram: 11/11/16 0505 11/11/16 0505 Results 24 hrs Laboratory Tests Test 11/11/16 05:05 Anion Gap 10 Basophils # 0.0 Basophils % 0.3 Blood Morphology Comment Blood Urea Nitrogen 38 #H Calcium Level 8.7 Carbon Dioxide Level 34 H Chloride Level 94 L Creatinine 1.27 H Eosinophils # 0.1 Eosinophils % 1.0 Glucose Level 100 Hematocrit 24.3 L Hemoglobin 7.7 L Lymphocytes # 1.4 Lymphocytes % 13.6 L Magnesium Level 1.9 Mean Corpuscular Hemoglobin 31.8 Mean Corpuscular Hemoglobin Concent 31.6 L Mean Corpuscular Volume 100.9 Mean Platelet Volume 7.6 Monocytes # 1.0 H Monocytes % 9.5 Neutrophils # 7.9 H Neutrophils % 75.6 Nucleated Red Blood Cells # 0.0 Nucleated Red Blood Cells % 0.0 Phosphorus Level 3.1 Platelet Count 217 Potassium Level 4.1 Red Blood Count 2.41 L Red Cell Distribution Width 18.2 H Sodium Level 134 L White Blood Count 10.4 # Medications Current Medications Levetiracetam/ Dextrose (Keppra Iv/D5W) 105 ml @ 420 mls/hr Q12 IVPB Last administered on 11/11/16t 08:15; Admin Dose 420 MLS/HR; Start 09/18/16 at 09:00 Collagenase (Santyl) 1 applic DAILY TOP Last administered on 11/10/16 11:36; Admin Dose 1 APPLIC; Start 09/18/16 at 09:00 Acetaminophen (Tylenol Liquid) 650 mg Q4H PRN NGT PAIN AND OR ELEVATED TEMP Last administered on 09/29/16 12:07; Admin Dose 650 MG; Start 09/18/16 at 08: 00 Bisacodyl (Dulcolax Supp) 10 mg DAILY PRN [place] CONSTIPATION; Start 09/18/16 at 08:00 Mupirocin (Bactroban) Apply to bilateral nares ... BID TOP Last administered on 11/11/16 08:16; Admin Dose 1 APPLIC; Start 09/18/16 at 09:00 Mirtazapine (Remeron) 7.5 mg HS GTB Last administered on 11/10/16 21:33; Admin Dose 7.5 MG; Start 09/18/16 at 21:00 Ondansetron HCl (Zofran Inj) 4 mg Q4H PRN IV NAUSEA AND/OR VOMITING; Start 08/24 at 08:00 Morphine Sulfate (morphine) 2 mg Q3H PRN IV PAIN LEVEL 6-10 Last administered on 11/05/16at 04:47; Admin Dose 2 MG; Start 09/18/16 at 08:00 Lorazepam (Ativan) 0.5 mg Q3H PRN IV ANXIETY Last administered on 11/11/16 03: 42; Admin Dose 0.5 MG; Start 09/18/16 at 08:00 IV Flush (NS 10 ml) 10 ml PRN PRN IV IV PROTOCOL Last administered on at 06:01; Admin Dose 10 ML; Start 09/18/16 at 13:00 Lansoprazole (Prevacid) 30 mg DAILY@06 PO Last administered on 11/11/16 06:29; Admin Dose 30 MG; Start 09/27/16 at 06:00 Apixaban (Eliquis) 2.5 mg BID GTB Last administered on 11/11/16 08:15; Admin Dose 2.5 MG; Start 09/30/16 at 09:00; Status Future hold Metoclopramide HCl (Reglan) 5 mg Q6 IV Last administered on 11/11/16 12:10; Admin Dose 5 MG; Start 09/30/16 at 12:00 Sildenafil Citrate (Revatio) 20 mg TID GTB Last administered on 11/10/16 21:33 ; Admin Dose 20 MG; Start 10/08/16 at 10:45 Pramoxine HCl (Proctofoam 1%) 1 applic TID [place] Last administered on 11/11/16 08: 15; Admin Dose 1 APPLIC; Start 10/10/16 at 21:00 Hydrocortisone (Hydrocortisone 1% Cr) 1 applic BID TOP Last administered on 11/11 08:16; Admin Dose 1 APPLIC; Start 10/30/16 at 15:30 Diphenhydramine HCl 25 mg 25 mg Q8H PRN PO ITCHING Last administered on 00:55; Admin Dose 25 MG; Start 10/30/16 at 15:00 Ferric Sodium Gluconate Complex/ Sodium Chloride (Ferrlecit/NS) 110 ml @ 110 mls/hr Q24H IVPB Last administered on 11/11/16 10:36; Admin Dose 110 MLS/HR; Start 11/10/16 at 11:00; Stop 11/14/16 at 11:59 Assessment/Plan Chief Complaint/Hosp Course IMPRESSION AND PLAN: 1. Ventilator-dependent respiratory failure. 2. Status post septic shock. 3. Polymicrobial sepsis. Now normal white blood cell count 4. End-stage renal failure on hemodialysis. 5. G tube malfunction / leak PLAN: 1. Continue vent support. 2. Continue ID recommendations. 3. Continue wound care. 4. Continue DVT and GI prophylaxis. 5. GI recs Discharge planning. Problems: JULIA HERNANDEZ MD, [facility] Nov 11, 2016 16:08
--- NOTE | 2016-11-11 16:38 | PN ---
DATE: 11/11/2016 SUBJECTIVE: This is a cardiology followup. Surgery was discussed with the patient's daughter, deepak kaur with the staff. Rhythm strip was reviewed. She remains in atrial fibrillation. Heart rate ov marisa has been stable. Denies any chest pain or pressure. Denies palpitations to me. MEDICATIONS: Reviewed. PHYSICAL EXAMINATION: VITAL SIGNS: Temperature 97.4, heart rate of 105, blood pressure 109/49, respiratory rate of 19. HEENT: Normocephalic, atraumatic. NECK: Status post tracheostomy on the vent. CARDIOVASCULAR: Irregularly irregular, systolic and diastolic murmur. PULMONARY: With mild rhonchi, diffuse. GASTROINTESTINAL: Soft, nontender. No rebound or guarding. EXTREMITIES: Positive bilateral diffuse lower extremity edema. NEUROLOGIC: Awake and alert. PSYCHIATRIC: Depressed mood, but otherwise pleasant. LABORATORY: WBC of 10.4, hemoglobin 7.7, platelets of 217. Sodium 134, potassium 4.1, BUN of 38, c reatinine 1.27, glucose 100. ASSESSMENT AND PLAN: 1. Hypoxic respiratory failure, status post tracheostomy and vent dependent. 2. Atrial fibrillation, chronic. Heart rate controlled and anticoagulation with Eliquis. 3. Renal failure on dialysis. 4. History of pulmonary hypertension, possible atrial septal defect. 5. Severe anemia, probably of chronic disease. 6. Dysphagia, status post PEG placement. 7. History of abdominal ascites. 8. Decubitus wounds with wound care. 9. History of seizure disorder. RECOMMENDATIONS: Continue the vent support and respiratory care as per bartender will be contin ued. Heart rate is currently under better control. RECOMMENDATIONS: The patient will be ____ until the patient is stable. Hemodialysis will be contin ued and managed as per renal recommendations. Anticoagulation as tolerated will be continued. Dictated By: AMANDA LARA/ARNOLDO Conf#: [id number] DID#: [id number] CC: RUDDY GEE DO;*EndCC*
[2016-11-11] MEDS: MIRTAZAPINE 15 MG TAB GTB SCH (21:50)
[2016-11-12] VITALS (30 sets, daily range): BP systolic 95–121; BP diastolic 42–80; PULSE 65–109; RESP 13–20
[2016-11-12] MEDS: IPRATROPIUM (HFA) 12.9 GM INHALER INH SCH ×5 (01:22→17:15)
[2016-11-12] MEDS: LEVALBUTEROL (HFA) 15 GM INHALER INH SCH ×5 (01:22→17:16)
[2016-11-12 05:56] LABS: BASOPHILS % 0.5 % (0.0-2.0); EOSINOPHILS # 0.1 10^3/ul (0.0-0.5); EOSINOPHILS % 1.2 % (0.0-7.0); HEMATOCRIT 25.4 % (37.0-47.0); HEMOGLOBIN 8.1 g/dl (12.0-16.0); LYMPHOCYTES # 1.7 10^3/ul (0.8-2.9); LYMPHOCYTES % 16.5 % (15.0-51.0); MEAN CORPUSCULAR HEMOGLOBIN 32.1 pg (29.0-33.0); MEAN CORPUSCULAR HGB CONC 31.7 g/dl (32.0-37.0); MEAN CORPUSCULAR VOLUME 101.1 fl (82.0-101.0); MEAN PLATELET VOLUME 7.4 fl (7.4-10.4); MONOCYTE # 0.9 10^3/ul (0.3-0.9); MONOCYTES % 8.6 % (0.0-11.0); NEUTROPHIL # 7.7 10^3/ul (1.6-7.5); NEUTROPHILS % 73.2 % (39.0-77.0); PLATELET COUNT 259 10^3/UL (140-440); RED BLOOD COUNT 2.51 10^6/ul (4.20-5.40); RED CELL DISTRIBUTION WIDTH 17.7 % (11.5-14.5); UNCORRECTED WBC 10.5 10^3/ul (4.8-10.8); WHITE BLOOD COUNT 10.5 10^3/ul (4.8-10.8)
[2016-11-12 06:24] LABS: CONDITION 1; LH ANALYZER COMMENTS 1
[2016-11-12] MEDS: LANSOPRAZOLE 30 MG CAP PO SCH (06:32)
[2016-11-12] MEDS: METOCLOPRAMIDE 10 MG INJ IV SCH ×3 (06:32→18:22)
[2016-11-12] MEDS: ALBUMIN HUMAN 25% 100 ML IV PRN (07:41)
[2016-11-12] MEDS: SILDENAFIL 20 MG TAB GTB SCH ×3 (09:00→20:57)
[2016-11-12] MEDS: BUDESONIDE (NEB) 0.5MG/2ML AMP HHN SCH ×2 (09:00→20:00)
--- NOTE | 2016-11-12 09:59 | PN ---
DATE: 11/12/2016 SUBJECTIVE: Discussed with the staff. Rhythm strip was reviewed. The patient remains in atrial fi brillation. Heart rate overall has been stable. She is currently on dialysis. Denies chest pain o r pressure to me. She overall not feeling well, but could not describe it well. MEDICATIONS: Reviewed. PHYSICAL EXAMINATION: VITAL SIGNS: Temperature 98, heart rate of 95, blood pressure 114/55, respiration rate of 20, satur ating 97%. HEENT: Normocephalic, atraumatic. NECK: Status post tracheostomy on the vent. CARDIOVASCULAR: Irregularly irregular, systolic murmur. PULMONARY: With no wheezes anteriorly. GASTROINTESTINAL: Soft, nontender. EXTREMITIES: With positive ankle edema. NEUROLOGIC: Awake, responds appropriately. PSYCHIATRIC: Depressed mood. Pleasant. LABORATORY: WBC of 10.5, hemoglobin 9.1, platelets 259. ASSESSMENT AND PLAN: 1. Hypoxemic respiratory failure, status post tracheostomy vent dependent. 2. Atrial fibrillation, chronic, not on anticoagulation. 3. Anemia, renal failure on dialysis. 4. History of pulmonary hypertension, possible ASC. 5. Dysphagia, status post PEG placement. 6. History of abdominal ascites. 7. History of seizure disorder. RECOMMENDATIONS: Vent support will be continued and managed as per pulmonary team. We will contin ue to monitor on telemetry. Heart rate overall has been stable. Respiratory care will be continued as well. Hemodialysis as per renal. Correct electrolytes per renal. Dictated By: AMANDA PINTO MD AV/ARNOLDO Conf#: [id number] DID#: [id number] CC: RUDDY GEE DO;*EndCC*
--- NOTE | 2016-11-12 10:15 | PN ---
DATE: 11/12/2016 SUBJECTIVE: The patient is receiving hemodialysis at this time, tolerating it well. No other acute events noted. OBJECTIVE: VITAL SIGNS: Blood pressure is 114/55, respirations 20, pulse 95, temperature 98.0. HEENT: Head is normocephalic. NECK: Supple. HEART: Regular rate. LUNGS: Show diminished breath sounds at the base. ABDOMEN: Soft, nontender to palpation. No rebound or guarding. EXTREMITIES: Negative for clubbing, cyanosis. Positive edema. DERMATOLOGIC: No rashes. MUSCULOSKELETAL: No joint effusions. NEUROLOGIC: No change in exam. MEDICATIONS: The patient's medications have been reviewed. LABORATORY DATA: Shows a white count of 10.5, hemoglobin 8.1, hematocrit 25.4, and platelet count o f 259. ASSESSMENT AND PLAN: 1. End-stage renal disease. The patient has been receiving dialysis 4 to 5 times weekly for volume management and solute clearance. The patient is having dialysis again today. We will continue. We will determine if dialysis is needed tomorrow based on clinical exam. 3. Abdominal ascites. Etiology secondary to end-stage renal disease versus right-sided heart failu re. Continue current medical management. Continue ultrafiltration dialysis. We will follow up wit h GI regarding possible paracentesis. 4. Sepsis secondary to bacteremia. The patient has completed antibiotic course. We will continue t o monitor. 5. Pulmonary hypertension. Continue sildenafil. 6. Decubitus wound. Continue wound care. 7. Anemia with iron deficiency. Continue IV Ferrlecit. Continue Epogen. 8. Seizure disorder. Continue Keppra. 9. Dysphagia. ____ tube feeding. 10. Ventilator dependent respiratory failure. Vent settings have been reviewed. ABG has been revi ewed. Continue to monitor. 11. Atrial fibrillation, rate controlled. Continue medical management. 12. Encephalopathy. No change. 13. Gastrointestinal and deep venous thrombosis prophylaxis. Continue proton pump inhibitor and El iquis. Dictated By: RUDDY BUSTILLOS/ARNOLDO Conf#: [id number] DID#: [id number]
[2016-11-12] MEDS: LEVETIRACETAM IV 500 MG in DEXTROSE 5% 100 ML IVPB SCH ×2 (11:30→20:59)
[2016-11-12] MEDS: APIXABAN 5 MG TABLET GTB SCH ×2 (11:35→20:54)
[2016-11-12] MEDS: COLLAGENASE 30 GM TUBE TOP SCH (11:36)
[2016-11-12] MEDS: SOD FERRIC GLUC COMPLX 125 MG in SOD CHLORIDE 0.9% 100 ML IVPB SCH (11:37)
[2016-11-12] MEDS: HYDROCORTISONE 1% 28 GM CR TOP SCH ×2 (11:38→20:55)
[2016-11-12] MEDS: PRAMOXINE 1% 15 GM RECT FOAM PR SCH ×3 (11:39→20:55)
[2016-11-12] MEDS: MUPIROCIN 2% 22 GM OINT TOP SCH ×2 (11:39→20:55)
--- NOTE | 2016-11-12 13:09 | CONS ---
Date/Time of Note Date/Time of Note DATE: 11/12/16 TIME: 13:07 Assessment/Plan Assessment/Plan Additional Assessment/Plan ASSESSMENT: 1. Renal failure on dialysis. 2. Vent dependent respiratory failure. 3. Chronic obstructive pulmonary disease. 4. Atrial fibrillation. 5. Ascites, responding to dialysis,pt had last paracentesis on 10/14 6. Dysphagia 7. G-tube clean,no leakage,tolerating feeding 50 cc/hr,diabetasource 8. Anemia: stable, likely from anemia of chronic disease 9. Status post septic shock. 10. Diabetes mellitus. 11. Decubitus ulcer. 12. Congestive heart failure. 13. Seizure disorder. 14. pneumonia,s/p sepsis 15.pulmonary hypertension 16 persistent leucocytosis,better 17.pressure ulcer g tube site,healed 18.4+ pedal edema Plan continue antibiotics per ID Reglan for gastroparesis. G-tube site ,no leakage of formula,or even ascites fluid continue present care,dialysis, removal of fluid during dialysis OK to discharge Consultation Date/Type/Reason Admit Date/Time Sep 17, 2016 at 18:49 Type of Consultation: Pulm 24 HR Interval Summary Free Text/Dictation no abdominal pain Constitutional: improved, no complaints Exam/Review of Systems Vital Signs Vitals Vital Signs Date Time Temp Pulse Resp B/P Pulse Ox O2 Delivery O2 Flow Rate FiO2 11/12/16 12:41 88 11/12/16 12:32 14 96 40 11/12/16 11:50 98.0 96/42 11/12/16 04:00 Mechanical Ventilator Intake and Output 11/11/16 11/11/16 11/12/16 15:00 23:00 07:00 Intake Total 1490 ml 650 ml Output Total 1630 ml Balance -140 ml 650 ml Exam Constitutional: alert, oriented, well developed Psych: nl mood/affect, no complaints Head: atraumatic, normocephalic Eyes: EOMI, PERRL, nl conjunctiva, nl lids, nl sclera ENMT: nl external ears & nose, nl lips & teeth, nl nasal mucosa & septum Neck: non-tender, supple Respiratory: clear to auscultation, normal air movement Cardiovascular: nl pulses, regular rate and rhythm Gastrointestinal: nl liver, spleen, non-tender, soft Musculoskeletal: nl extremities to inspection, nl gait and stance Extremities: normal pulses Neurological: [employer] II-XII intact, nl mental status, nl speech, nl strength Skin: nl turgor, No rash or lesions Lymph: nl lymph nodes Results Result Diagram: 11/12/16 0505 11/11/16 0505 Results 24 hrs Laboratory Tests Test 11/12/16 05:05 Basophils # 0.0 Basophils % 0.5 Blood Morphology Comment Eosinophils # 0.1 Eosinophils % 1.2 Hematocrit 25.4 L Hemoglobin 8.1 L Lymphocytes # 1.7 Lymphocytes % 16.5 Mean Corpuscular Hemoglobin 32.1 Mean Corpuscular Hemoglobin Concent 31.7 L Mean Corpuscular Volume 101.1 H Mean Platelet Volume 7.4 Monocytes # 0.9 Monocytes % 8.6 Neutrophils # 7.7 H Neutrophils % 73.2 Nucleated Red Blood Cells # 0.0 Nucleated Red Blood Cells % 0.0 Platelet Count 259 Red Blood Count 2.51 L Red Cell Distribution Width 17.7 H White Blood Count 10.5 Medications Medications Current Medications Levetiracetam/ Dextrose (Keppra Iv/D5W) 105 ml @ 420 mls/hr Q12 IVPB Last administered on 11/12/16 11:30; Admin Dose 420 MLS/HR; Start 09/18/16 at 09:00 Collagenase (Santyl) 1 applic DAILY TOP Last administered on 11/12/16 11:36; Admin Dose 1 APPLIC; Start 09/18/16 at 09:00 Acetaminophen (Tylenol Liquid) 650 mg Q4H PRN NGT PAIN AND OR ELEVATED TEMP Last administered on 09/29/16at 12:07; Admin Dose 650 MG; Start 09/18/16 at 08: 00 Bisacodyl (Dulcolax Supp) 10 mg DAILY PRN AL CONSTIPATION; Start 09/18/16 at 08:00 Mupirocin (Bactroban) Apply to bilateral nares ... BID TOP Last administered on 11/12/16 11:39; Admin Dose 1 APPLIC; Start 09/18/16 at 09:00 Mirtazapine (Remeron) 7.5 mg HS GTB Last administered on 11/11/16 21:50; Admin Dose 7.5 MG; Start 09/18/16 at 21:00 Ondansetron HCl (Zofran Inj) 4 mg Q4H PRN IV NAUSEA AND/OR VOMITING; Start 08/24 at 08:00 Morphine Sulfate (morphine) 2 mg Q3H PRN IV PAIN LEVEL 6-10 Last administered on 11/05/16at 04:47; Admin Dose 2 MG; Start 09/18/16 at 08:00 Lorazepam (Ativan) 0.5 mg Q3H PRN IV ANXIETY Last administered on 11/11/16 03: 42; Admin Dose 0.5 MG; Start 09/18/16 at 08:00 IV Flush (NS 10 ml) 10 ml PRN PRN IV IV PROTOCOL Last administered on at 06:01; Admin Dose 10 ML; Start 09/18/16 at 13:00 Lansoprazole (Prevacid) 30 mg DAILY@06 PO Last administered on 11/12/16 06:32; Admin Dose 30 MG; Start 09/27/16 at 06:00 Apixaban (Eliquis) 2.5 mg BID GTB Last administered on 11/12/16 11:35; Admin Dose 2.5 MG; Start 09/30/16 at 09:00; Status Future hold Metoclopramide HCl (Reglan) 5 mg Q6 IV Last administered on 11/12/16 11:32; Admin Dose 5 MG; Start 09/30/16 at 12:00 Sildenafil Citrate (Revatio) 20 mg TID GTB Last administered on 11/11/16 21:51 ; Admin Dose 20 MG; Start 10/08/16 at 10:45 Pramoxine HCl (Proctofoam 1%) 1 applic TID AL Last administered on 11/12/16 11: 39; Admin Dose 1 APPLIC; Start 10/10/16 at 21:00 Hydrocortisone (Hydrocortisone 1% Cr) 1 applic BID TOP Last administered on 11/12 11:38; Admin Dose 1 APPLIC; Start 10/30/16 at 15:30 Diphenhydramine HCl 25 mg 25 mg Q8H PRN PO ITCHING Last administered on 23:13; Admin Dose 25 MG; Start 10/30/16 at 15:00 Ferric Sodium Gluconate Complex/ Sodium Chloride (Ferrlecit/NS) 110 ml @ 110 mls/hr Q24H IVPB Last administered on 11/12/16 11:37; Admin Dose 110 MLS/HR; Start 11/10/16 at 11:00; Stop 11/14/16 at 11:59 ANNABEL CISSE MD Nov 12, 2016 13:09
[2016-11-12] MEDS: MIRTAZAPINE 15 MG TAB GTB SCH (20:54)
[2016-11-12] MEDS ORDERED: [UNRECOGNIZED DRUG - OTHER] XX SCH (21:00)
== END 2016-11-12 21:32 | DRG 870 ==
LOC: ICU 18:49 → TEL 09-23 23:10
PROVIDERS: ADMIT Internal Medicine Nephrology; ATTEND Internal Medicine Nephrology
PROC: 5A1955Z Respiratory Ventilation, Greater than 96 Consecutive Hours (ICD-10-PCS; principal; 2016-09-17)
PROC: 0W9G3ZZ Drainage of Peritoneal Cavity, Percutaneous Approach (ICD-10-PCS; 2016-09-17)
PROC: 02HV33Z Insertion of Infusion Device into Superior Vena Cava, Percutaneous Approach (ICD-10-PCS; 2016-09-18)
PROC: 5A1D60Z (ICD-10-PCS; 2016-09-18)
PROC: 30233N1 Transfusion of Nonautologous Red Blood Cells into Peripheral Vein, Percutaneous Approach (ICD-10-PCS; 2016-09-24)
PROC: 0DH63UZ Insertion of Feeding Device into Stomach, Percutaneous Approach (ICD-10-PCS; 2016-09-27)
PROC: 0W9G3ZZ Drainage of Peritoneal Cavity, Percutaneous Approach (ICD-10-PCS; 2016-10-14)
PROC: 02PY33Z Removal of Infusion Device from Great Vessel, Percutaneous Approach (ICD-10-PCS; 2016-10-25)
DX: A41.9 Sepsis, unspecified organism (principal); R65.21 Severe sepsis with septic shock; J90 Pleural effusion, not elsewhere classified; G92 Toxic encephalopathy; J15.1 Pneumonia due to Pseudomonas; L89.154 Pressure ulcer of sacral region, stage 4; T80.211A Bloodstream infection due to central venous catheter, initial encounter; B95.7 Other staphylococcus as the cause of diseases classified elsewhere; E87.3 Alkalosis; J96.10 Chronic respiratory failure, unspecified whether with hypoxia or hypercapnia; N18.6 End stage renal disease; R18.8 Other ascites; Q21.1 Atrial septal defect; B37.49 Other urogenital candidiasis; E87.1 Hypo-osmolality and hyponatremia; B37.0 Candidal stomatitis; I50.9 Heart failure, unspecified; I27.2 Other secondary pulmonary hypertension; Z93.0 Tracheostomy status; G40.909 Epilepsy, unspecified, not intractable, without status epilepticus; E11.9 Type 2 diabetes mellitus without complications; R13.10 Dysphagia, unspecified; Z86.73 Personal history of transient ischemic attack (TIA), and cerebral infarction without residual deficits; J44.9 Chronic obstructive pulmonary disease, unspecified; E87.6 Hypokalemia; B96.5 Pseudomonas (aeruginosa) (mallei) (pseudomallei) as the cause of diseases classified elsewhere; B95.62 Methicillin resistant Staphylococcus aureus infection as the cause of diseases classified elsewhere; Z22.322 Carrier or suspected carrier of Methicillin resistant Staphylococcus aureus; Y95 Nosocomial condition; Z99.2 Dependence on renal dialysis; E87.5 Hyperkalemia; I48.91 Unspecified atrial fibrillation; K31.84 Gastroparesis; D63.1 Anemia in chronic kidney disease; D50.9 Iron deficiency anemia, unspecified
CPT/HCPCS: 36430; 36569; 36600; 71010; 76705; 76937; 80048; 80053; 80076; 80202; 81001; 81003; 82270; 82728; 82803; 82962; 83540; 83605; 83735; 84100; 84134; 84145; 84295; 85014; 85018; 85025; 85610; 85730; 86704; 86709; 86803; 86850; 86900; 86901; 86920; 87040; 87070; 87075; 87081; 87086; 87102; 87116; 87340; 88104; 88305; 88313; 89050; 89220; 90686; 90935; 92507; 92526; 92610; 93005; 94002; 94003; 94640; 94799; C9113; J0278; J0744; J0886; J1644; J1815; J1953; J1956; J2060; J2250; J2270; J2765; J2916; J2997; J3010; J3370; J7040; J7042; J7050; J7070; P9016; P9047